=== PATIENT | female | born 1945 | race Caucasian/White ===

== ENCOUNTER 2017-09-27 08:58 | Day surgery (SDC) | payer MEDICARE, OTHER ==
[2017-09-24 09:41] VITALS: BMI 36.6
[~2017-09-27 08:58] MED LIST: LACTATED RINGERS 1,000 ML IV SCH
[2017-09-27] MEDS ORDERED: LIDOCAINE 1% 20 ML VIAL (10MG/ML) FOR IV START INTRADERMA ONE (08:59)
[2017-09-27 09:11] VITALS: RESP 16; TEMP 97.8
[2017-09-27] MEDS ORDERED: PROPOFOL 10 MG/ML 20 ML VIAL IV ONE (09:47)
--- NOTE | 2017-09-27 09:49 | P.GSHP ---
History of Present Illness H&P Date: 09/27/17 Chief Complaint: Screening colonoscopy This a 72-year-old female for from Dr. Payne. Patient presents today for screening colonoscopy. Her last colonoscopy was or 14 years ago. Past Medical History Past Medical History: Hypertension Additional Past Medical History / Comment(s): HX HEMMOROIDS History of Any Multi-Drug Resistant Organisms: None Reported Past Surgical History: Appendectomy, Hysterectomy Additional Past Surgical History / Comment(s): HEMMOROIDECTOMY Past Anesthesia/Blood Transfusion Reactions: No Reported Reaction Smoking Status: Never smoker - Past Family History Mother Family Medical History: No Reported History Medications and Allergies Home Medications Medication Instructions Recorded Confirmed Type Aspirin [Adult Low Dose Aspirin EC] 81 mg PO DAILY 09/24/17 09/27/17 History Cholecalciferol [Vitamin D3] 1,000 unit PO DAILY 09/24/17 09/27/17 History Losartan/Hydrochlorothiazide 1 each PO QAM 09/24/17 09/27/17 History [Hyzaar 100-25 Tablet] amLODIPine [Norvasc] 5 mg PO QAM 09/24/17 09/27/17 History Allergies Allergy/AdvReac Type Severity Reaction Status Date / Time No Known Allergies Allergy Verified 09/24/17 09:23 Surgical - Exam Vital Signs Temp Pulse Resp BP Pulse Ox 97.8 F 85 16 196/92 99 09/27/17 09:06 09/27/17 09:06 09/27/17 09:06 09/27/17 09:06 09/27/17 09:06 - General well developed, no distress - Eyes PERRL - ENT normal pinna - Neck no masses - Respiratory normal expansion - Cardiovascular Rhythm: regular - Abdomen Abdomen: soft, non tender Assessment and Plan Assessment: We'll perform screening colonoscopy.
--- NOTE | 2017-09-27 10:16 | P.OP ---
Date of Procedure: 09/27/17 Preoperative Diagnosis: Screening colonoscopy Postoperative Diagnosis: Transverse colon polyp Diverticulosis. Procedure(s) Performed: Colonoscopy Anesthesia: MAC Surgeon: Rey Berkowitz Pathology: other (Transverse colon polyp) Condition: stable Disposition: PACU Description of Procedure: The patient's placed on the endoscopy table in the lateral position. She received IV sedation. Digital rectal exam was performed which revealed no abnormalities. The flexible colonoscope was then placed patient anus passed throughout the entire colon. The ileocecal valve was visualized. The cecum and ascending colon appeared normal. In the transverse colon there were a few scattered diverticula. There was also a small polyp seen this is removed with the snare. Scope was then brought back the descending and; there is extensive diverticular changes. Scope was then brought back the rectum and this appeared normal. Scope was withdrawn for patient.
[2017-09-27 10:30] VITALS: BP 172/83; PULSE 60
== END 2017-09-27 10:58 | disposition home or self-care (01) ==
LOC: ORWHC2ENDO 08:58
PROVIDERS: ATTEND Surgery
DX: Z12.11 Encounter for screening for malignant neoplasm of colon (principal); K63.5 Polyp of colon; K57.30 Diverticulosis of large intestine without perforation or abscess without bleeding; I10 Essential (primary) hypertension; Z79.82 Long term (current) use of aspirin; Z79.899 Other long term (current) drug therapy; Z90.49 Acquired absence of other specified parts of digestive tract; Z90.710 Acquired absence of both cervix and uterus
CPT/HCPCS: 45385; 88305; J2704

== ENCOUNTER → 2017-12-15 | Outpatient (CLI) | payer MEDICARE, OTHER | END | disposition home or self-care (01) | LOC: LABPAT 09:49 | PROVIDERS: ATTEND Orthopaedic Surgery Sports Medicine | DX: Z01.812 Encounter for preprocedural laboratory examination (principal) | CPT/HCPCS: 87070 ==

== ENCOUNTER 2018-02-03 10:23 | Inpatient (IN) | payer MEDICARE, OTHER ==
[2018-01-20 14:39] VITALS: BMI 36.1
[~2018-02-03 10:23] MED LIST changes: +ACETAMINOPHEN TAB 500 MG TAB PO ONE; +DEXAMETHASONE SOD PHOSPHATE 10 MG/ML 1 ML VIAL IV ONE; -LACTATED RINGERS 1,000 ML IV SCH; +LIDOCAINE 1% 20 ML VIAL (10MG/ML) FOR IV START INTRADERMA PRN; +MELOXICAM 7.5 MG TAB PO ONE; +MIDAZOLAM 2 MG/2 ML VIAL IV PRN; +ONDANSETRON 4 MG/2 ML VIAL IVP ONE; +ROPIVACAINE 246.25 MG, EPINEPHrine 0.5 MG, KETOROLAC 30 MG, cloNIDine HCL/PF 80 MCG, WA... MISCELLANE ONE; +SCOPOLAMINE 1.5MG/72HR PATCH TRANSDERM ONE; +TRANEXAMIC ACID 1,000 MG in SODIUM CHLORIDE 0.9% 50 ML IVPB ONE; +ceFAZolin IN SWFI 2 GM/20 ML SYRINGE IVP ONE; +fentaNYL (PF) 50 MCG/ML 2 ML AMP IV PRN
[2018-02-03] MEDS: LACTATED RINGERS 1,000 ML IV SCH ×3 (10:40→16:04)
[2018-02-03 11:07] LABS: INR 1.1 (<1.2); Partial Thromboplastin Time 25.1 sec (22.0-30.0); Prothrombin Time 10.3 sec (9.0-12.0)
[2018-02-03] MEDS ORDERED: MIDAZOLAM 2 MG/2 ML VIAL ONE (11:24)
[2018-02-03] MEDS ORDERED: SODIUM CHLORIDE 0.9% 100 ML BAG ONE (11:24)
[2018-02-03] MEDS ORDERED: PROPOFOL 10 MG/ML 20 ML VIAL IV ONE (11:24)
[2018-02-03] MEDS ORDERED: fentaNYL (PF) 50 MCG/ML 2 ML AMP ONE (11:24)
[2018-02-03] MEDS ORDERED: TRANEXAMIC ACID 1,000 MG/10 ML VIAL ONE (11:24)
[2018-02-03] MEDS ORDERED: MORPHINE SULFATE 2 MG/ML SYRINGE IVP PRN (11:43)
[2018-02-03] MEDS ORDERED: NALOXONE 0.4 MG/ML 1 ML VIAL IV PRN ×2 (11:43→13:26)
[2018-02-03] MEDS ORDERED: NALBUPHINE 10 MG/ML AMPUL IV PRN (11:43)
[2018-02-03] MEDS ORDERED: diphenhydrAMINE 50 MG/ML 1 ML VIAL IVP PRN (11:43)
[2018-02-03] MEDS ORDERED: ceFAZolin 3,000 MG in SODIUM CHLORIDE 0.9% IRRIGATIO 3,000 ML IRRIGATION ONE (12:36)
[2018-02-03] MEDS ORDERED: LACTATED RINGERS 1,000 ML IV ONE ×2 (12:53)
[2018-02-03] MEDS ORDERED: BISACODYL 10 MG SUPP RECTAL PRN (13:26)
[2018-02-03] MEDS ORDERED: NA PHOS,M-B/NA PHOS,DI-BA 133 ML ENEMA RECTAL PRN (13:26)
[2018-02-03] MEDS ORDERED: traMADol 50 MG TAB PO PRN (13:26)
[2018-02-03] MEDS ORDERED: TEMAZEPAM 15 MG CAP PO PRN (13:26)
[2018-02-03] MEDS ORDERED: HYDROmorphone 0.5 MG/0.5 ML SYRINGE IVP PRN ×3 (13:26)
[2018-02-03] MEDS ORDERED: MAGNESIUM HYDROXIDE 2,400 MG/10 ML CUP PO PRN (13:26)
[2018-02-03] MEDS ORDERED: hydrOXYzine PAMOATE 25 MG CAP PO PRN (13:26)
[2018-02-03] MEDS ORDERED: DIAZEPAM 5 MG TAB PO PRN (13:26)
[2018-02-03] MEDS ORDERED: HYDROcodone/APAP 7.5-325MG 1 EACH TAB PO PRN ×2 (13:26)
[2018-02-03] MEDS ORDERED: ONDANSETRON 4 MG/2 ML VIAL IVP PRN (13:26)
--- NOTE | 2018-02-03 14:09 | XR ---
EXAMINATION TYPE: XR knee limited LT DATE OF EXAM: 02/03/2018 COMPARISON: NONE HISTORY: Post knee replacement TECHNIQUE: 2 view left knee FINDINGS: Postoperative changes are within the left knee. Tibial femoral components of in place. IMPRESSION: 1. No acute fractures post left knee replacement.
--- NOTE | 2018-02-03 18:26 | OP ---
OPERATIVE REPORT DATE OF PROCEDURE: 02/03/2018. PREOPERATIVE DIAGNOSIS: Left knee osteoarthrosis. POSTOPERATIVE DIAGNOSIS: Left knee osteoarthrosis. OPERATION: Left total knee arthroplasty. SURGEON: Shaw Gipson MD. GRAVEL INSPECTOR: Joao LEMA. ANESTHESIA: Spinal sedation. ESTIMATED BLOOD LOSS: 100 mL. TOURNIQUET TIME: 45 minutes at 250 mmHg. COMPLICATIONS: None apparent. DRAINS: None. DISPOSITION: Postanesthesia care unit. INDICATIONS: Venus is a 72-year-old female with longstanding history of left knee pain. History and physical examination are consistent with a left knee osteoarthrosis. She has been through significant nonoperative management up to this point. Further treatment options were discussed and she decided to go forward with left total knee arthroplasty. The risks of procedure were discussed with her in detail. These risks include, but are not limited to risk of infection, nerve damage, bleeding, pain and risk of deep vein thrombosis which could lead to fatal pulmonary embolism. There is also risk of loosening of the implant which could require revision operation. The patient understands these risks. All of her questions with regard to the risks were answered to her satisfaction. Appropriate informed consent was obtained. DESCRIPTION OF THE PROCEDURE: The patient was identified in the preoperative holding area. Surgical sites marked by both the patient and myself. She was given 2 g of Ancef IV for prophylactic purposes. She was then transferred to the operative suite. She was placed supine on the operative table. Spinal anesthetic was then administered and dosed per the anesthesia without apparent complication. Examination under anesthesia was then performed. The patient was 2-3 degrees shy of full extension. She had 95 degrees of flexion. The medial collateral ligament, lateral collateral ligament and posterior cruciate ligaments were stable. Tourniquet was then placed high on the left upper thigh well-padded in preparation for surgery. The patient's left lower extremity was then prepped and draped in usual sterile fashion. Standard surgical pause undertaken to ensure that we were operating the correct site and that appropriate preop preoperative antibiotics were given. All staff in the room in agreement and we proceeded. The outlines of the patella were marked with a surgical pen. A planned 12 cm vertical incision centered over the patella was marked surgical pen. Leg was then exsanguinated with an Esmarch dressing. The knee was then flexed and the tourniquet was inflated to 250 mmHg. The total tourniquet time for the procedure was 45 minutes. Incision was then made with a 10 blade scalpel. Dissection was carried down sharply overlying fascia. Great care was taken to minimize the skin flaps. The knee was then exposed using a standard medial parapatellar approach. A small cuff of quadriceps tendon was then left for suturing. She was in a bit of varus preoperatively. A standard medial release was then made. Superficial medial and collateral ligaments were dissected off the bone around the posterior aspect of the proximal tibia. The medial meniscus was then excised as well. The lateral meniscus was also released anteriorly. The leg was then externally rotated. The patella was everted and the knee was flexed. The retractors were then placed to protect the collateral ligaments. I then proceeded to remove the infrapatellar fat pad. This was excised sharply tangentially with the fibers of the patellar tendon. I then proceeded to remove peripheral osteophytes. This was done with a rongeur. I then proceed with the distal femoral resection. She did have a small flexion contracture and planned 9 mm resection was done. The femoral canal was then entered in midline of the femur approximately 10 mm anterior to the origin of the posterior cruciate ligament. The sunny was then advanced down the center of the femur and placed intramedullary. Based on preoperative radiographs, the angle between the anatomic and mechanical axis of the femur was approximately 4-5 degrees. The valgus angle of this femoral cutting guide was then set at 4 degrees for the left knee. The distal femoral cutting guide was then advanced over the intramedullary sunny. This was seated firmly against the femur. I then as mentioned planned to take 9 mm off the distal femur. The cutting block was then secured to the femur with pins. The jig was removed and the distal femoral cut was made through the slot of the block. The pins were then removed. The distal femoral cutting block was removed. The accuracy of the distal femoral cuts was checked with 2 flat bars. I then proceed with femoral sizing. The posterior referencing sizing guide was held firmly against the resected distal surface of the femur. The posterior condyles were resting on the posterior plane of the guide. The sizing stylus was then placed onto the anterior femur. The size was measured as a size 7. I then assessed for femoral rotation. Plan was for 3 degrees of external rotation. Three degrees of external rotation was placed onto the jig. These holes were then marked. I then confirmed the rotation by 3 separate methods. This was done using the epicondylar axis as well as Whitesides line and posterior referencing. It was deemed that the external rotation was proper. I then went forward with placing the femoral cutting block. This was placed over the previously placed pin holes. The Jose Guadalupe wing was then placed on the anterior slots to ensure that we would not notch the anterior femur with the anterior femoral cut. I then proceed with the anterior femoral cut. This was flush with the anterior cortex of the femur. Posterior cuts were then made followed by the anterior chamfer cut, then the posterior chamfer cut. The cutting block was then removed. Throughout the resection, the collateral ligaments were protected with retractors. I then placed a trial size 7 femur. It fit very nice medial-lateral and fit flush with the distal end of the femur. The drill holes were then made. I then proceeded with the tibial cut. I planned for cruciate retaining knee. The guide was placed and set for varus valgus and for slope. The height was set for approximate 2 mm resection from the medial tibial plateau which was the lower side. I was happy with the alignment of resection. The cutting block was then pinned to the proximal tibia. The alignment rods were removed. The proximal tibia was resected with a reciprocating saw. Again this was done with retractors protecting the collateral ligaments as well as the posterior cruciate ligament. I then proceeded to evaluate the flexion and extension gaps. A 10 mm block was placed. The flexion-extension gaps were equal. I then proceeded with resection of posterior osteophytes. She had fairly extensive posterior osteophytes. This was done using a curved osteotome. This resected the posterior osteophytes and posterior capsule stripping was also done off the posterior aspect of the femur at this time. The osteophytes were removed. I then proceeded with resection of the patella. The thickness of patella was measured using the caliper. The thickness was 22 mm. The thickness of the anticipated patellar dome was then taken into account. Resection was then performed and confirmed to be equal in 4 quadrants using a caliper. Approximately 14 mm of bone remained after the resection. A 29 x 8 standard patellar trial was then placed. The holes were drilled. The trial was then placed. I then proceeded with sizing the tibial plate. A size E tibial plate fit very nicely. I then placed the trial femur, the tibial tray and patellar button. A 10 mm trial tibial insert was also placed. The components fit very nicely. She had full extension and flexion. The extension flexion gaps were equal and stable to both varus and valgus stress. The patella tracked appropriately. The tibial tray rotation was marked with a Bovie. This was externally rotated properly. I then proceed with tibial preparation. I first drilled the femoral holes and removed femoral component. The tibial tray was then set for proper external rotation as well as mediolateral placement onto the tibia. It was then pinned into place. I then proceeded with punching the keel. I then decided to proceed with cementing of all of our components. The knee was thoroughly irrigated with sterile saline solution via pulse lavage. The lateral geniculate artery was identified and cauterized. All blood was removed from the bone of the tibia femur and patella with pulse lavage. I then proceed with cementing. Two packs of antibiotic bone cement were prepared on the back table by the surgical nurse. I then proceed with cementing the tibia first. The cement was impacted into the keel as well as deeply seated into the bone. A second coat of cement was then placed. The tibia was then impacted into place. Excess cement was removed with Karen's and jokers. I then proceed with cementing the femoral component. The femoral component was also cemented using standard technique. Excess cement was removed. A 10 mm trial insert was placed into the knee. It was brought into full extension with a constant axial load placed until the cement had hardened. The patellar component was then cemented. This was firmly held with a compressive device until the cement had dried. When the cement had dried, the knee was taken out of extension. All excess cement was removed from around the prosthesis. I then trialed the knee with a 10 mm insert. The flexion-extension gaps were appropriate. The knee was stable. It came into full extension. I decided to go forward with the 10 mm cross-linked cruciate-retaining tibial insert. Polyethylene was then placed onto the tibial tray and locked into place. The knee was then reduced. The knee was again further irrigated with sterile saline solution with antibiotic added. The tourniquet was then deflated. The total tourniquet time for the procedure was 45 minutes at 250 mmHg. Final components were a Juliet Persona size 7 cruciate-retaining femoral component, a size E tibial tray, a 10 mm medial congruent cruciate-retaining polyethylene insert and a 29 x 8 patella. I then proceeded with closure. Again, the knee was thoroughly irrigated. The quadriceps tendon and the medial retinaculum were reapproximated with #2 Ethibond suture. The extensor mechanism was then closed with a running #2 Quill suture. Subcutaneous tissues were closed with 2-0 Vicryl suture. The skin was closed with a running 3-0 Quill suture. Dermabond was applied to the incision. All sponge and needle counts were deemed correct prior to closure. The patient tolerated procedure without apparent complication. She was transferred to recovery room in stable condition. MMODL / IJN: [id number] /
--- NOTE | 2018-02-03 18:35 | CONS ---
CONSULTATION This is a 72-year-old white female who had severe pain in her left knee. Arthroscopic surgery was attempted that was not successful. Patient continued to worsen to the point that she could not bear weight. Evaluated by Dr. Shaw Gipson. He felt that the knee was severe enough to have total replacement, and this was done today. I did her preoperative physical examination. At this time she has ALLERGIES to BIAXIN and LYRICA. SOCIAL HISTORY: She is a nonsmoker, nondrinker. MEDICAL HISTORY: Significant just basically for hypertension, and she has also had overflow incontinence. SURGERIES IN THE PAST: 1. Orthoscopic knee surgery on the left. 2. Complete hysterectomy. 3. Appendectomy. REVIEW OF SYSTEMS: CARDIOPULMONARY: No shortness of breath. No chest pain. No orthopnea. GI: No nausea, vomiting. No hematochezia. : She has bladder incontinence, occasional urinary tract infection. NEUROMUSCULAR: Just the severe pain in her left knee. Her skin has been normal. PSYCHIATRIC: No depression and no anxiety. PHYSICAL EXAMINATION: Alert white female, postoperatively doing fine. Blood pressure 130/76, heart rate in the 70s, temperature 98.3, respiratory rate 16, and oxygen saturation is 97. EYES: Pupils are equal, round, reactive to light and accommodation. ENT showed tympanic membranes to be normal with a dry mouth. NECK: Supple. Midline trachea. CHEST: Essentially clear to auscultation. HEART: Sinus rhythm with no murmur. ABDOMEN: Soft, nontender with no organomegaly. LOWER EXTREMITY: Left knee swelling is apparent with decreased range of motion due to pain. Right knee: She has arthritis also throughout the right knee, but weightbearing is fine. BACK: Full range of motion, both lumbar spine and thoracic spine. Good palpable lower extremity pulses. Her skin is normal. Urinalysis is normal. Her lab work is within normal limits. Chest x-ray and EKG were both normal. ASSESSMENT: 1. Left knee meniscus tear with severe arthritis. 2. Right knee arthritis. 3. Hypertension. 4. Allergies. 5. Rhinitis. 6. 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 7. She has some overflow incontinence. PLAN: Will follow her accordingly. Medications have been reordered. Please refer to my physical examination. MMODL / IJN: [id number] /
[2018-02-03] MEDS: ASPIRIN 325 MG TAB PO SCH (20:02)
[2018-02-03] MEDS: SENNOSIDES-DOCUSATE SODIUM 1 EACH TAB PO SCH (20:02)
[2018-02-03] MEDS: ceFAZolin IN SWFI 2 GM/20 ML SYRINGE IVP SCH (20:02)
[2018-02-04] MEDS: ceFAZolin IN SWFI 2 GM/20 ML SYRINGE IVP SCH (03:27)
[2018-02-04] MEDS: LACTATED RINGERS 1,000 ML IV SCH ×3 (03:37→17:44)
--- NOTE | 2018-02-04 05:34 | P.PN ---
Progress Note - Text Progress Note Date: 02/04/18 72 yo female status post Total Left knee arthroplasty. Post-op day #1. Patient received intrathecal Duramorph. Patient was seen today, sitting up in bed no complaints, pain VAS score 3/10, no headache, no itching, no nausea and vomiting. Assessment and plan: Doing well in general no complications from anesthesia.
[2018-02-04 08:07] LABS: Basophils % (A) 0 %; Eosinophils % (A) 0 %; HGB 11.4 gm/dL (11.4-16.0); Lymphocytes # (A) 0.9 k/uL (1.0-4.8); Lymphocytes % (A) 9 %; MCH 28.8 pg (25.0-35.0); MCHC 33.5 g/dL (31.0-37.0); Mean Platelet Volume 6.8; Monocytes # (A) 0.5 k/uL (0-1.0); Monocytes % (A) 5 %; Neutrophils # (A) 8.4 k/uL (1.3-7.7); Neutrophils % (A) 85 %; Platelet Count 262 k/uL (150-450); RBC 3.96 m/uL (3.80-5.40); RDW 13.5 % (11.5-15.5); WBC 9.9 k/uL (3.8-10.6)
--- NOTE | 2018-02-04 09:10 | P.PN ---
Subjective Progress Note Date: 02/04/18 Principal diagnosis: S/P Left TKA Patient is seen at bedside this morning. She is postop day #1 from Left Total Knee arthroplasty. She has mild pain at the surgical site as expected but denies any new complaints. She denies numbness, tingling or calf pain. Review of systems is negative for fever, chills, chest pain, shortness of breath or other Objective - Vital Signs Vital signs: Vital Signs Temp 97.9 F 02/04/18 00:50 Pulse 70 02/04/18 00:50 Resp 18 02/04/18 05:40 BP 112/67 02/04/18 00:50 Pulse Ox 92 L 02/04/18 07:18 Intake & Output 02/03/18 02/04/18 02/04/18 18:59 06:59 18:59 Intake Total 1351 750 Output Total 100 Balance 1251 750 Weight 101.605 kg Intake: IV 1351 Intake, IV Titration 750 Amount Lactated Ringers 1,000 ml 750 @ 75 mls/hr IV .[id number] [facility] Rx#:[id number] Output: Estimated Blood Loss 100 Other: Voiding Method Bedside Commode # Voids 1 - Exam Inspection reveals a benign surgical wound. There is no active bleeding or drainage. Neurovascular status is intact throughout the lower extremity with motor and sensation fully intact. Calf is soft and nontender. 2+ dorsalis pedis pulse and less than 2 second cap refill is present - Constitutional General appearance: Present: no acute distress - Psychiatric Psychiatric: Present: A&O x's 3, appropriate affect, intact judgment & insight - Labs CBC & Chem 7: 02/04/18 06:46 02/03/18 10:45 Labs: Abnormal Lab Results - Last 24 Hours (Table) 02/04/18 Range/Units 06:46 Neutrophils # 8.4 H (1.3-7.7) k/uL Lymphocytes # 0.9 L (1.0-4.8) k/uL Assessment and Plan (1) S/P total knee arthroplasty Narrative/Plan: She will continue with routine postop orthopedic protocol including pain management, wound care, physical therapy, DVT prophylaxis and medical management. Expect that she will d/c to home tomorrow. Current Visit: Yes Status: Acute Priority: Medium Code(s): Z96.659 - PRESENCE OF UNSPECIFIED ARTIFICIAL KNEE JOINT SNOMED Code(s): 3945255986386 Time with Patient: Less than 30
[2018-02-04] MEDS: LOSARTAN-HCTZ 50-12.5 MG 1 EACH TAB PO SCH (09:34)
[2018-02-04] MEDS: ACETAMINOPHEN TAB 325 MG TAB PO PRN (09:34)
[2018-02-04] MEDS: ASPIRIN 325 MG TAB PO SCH ×2 (09:36→20:38)
[2018-02-04] MEDS: amLODIPine 5 MG TAB PO SCH (09:36)
--- NOTE | 2018-02-04 12:36 | P.PN ---
Subjective Progress Note Date: 02/04/18 Patient seen and examined at the bedside on rounds with Dr. Payne. Patient is POD #1 left TKA. Patient is awake and alert. Sitting up in bed. States her pain is tolerable at this time. Patient denies chest pain or pressure. Denies shortness of breath. Vitals are stable. Objective - Vital Signs Vital signs: Vital Signs Temp 97.1 F L 02/04/18 07:00 Pulse 66 02/04/18 07:00 Resp 16 02/04/18 12:00 BP 148/60 02/04/18 07:00 Pulse Ox 92 L 02/04/18 07:18 Intake & Output 02/03/18 02/04/18 02/04/18 18:59 06:59 18:59 Intake Total 1351 750 480 Output Total 100 Balance 1251 750 480 Weight 101.605 kg Intake: IV 1351 Intake, IV Titration 750 Amount Lactated Ringers 1,000 ml 750 @ 75 mls/hr IV .[id number] [facility] Rx#:[id number] Oral 480 Output: Estimated Blood Loss 100 Other: Voiding Method Bedside Commode Toilet # Voids 1 - Constitutional Constitutional Comment(s): 72-year-old female General appearance: Present: cooperative, no acute distress - EENT Eyes: Present: EOMI, PERRLA ENT: Present: hearing grossly normal - Neck Neck: Present: normal ROM. Absent: rigidity, stridor - Respiratory Respiratory: bilateral: CTA, negative: rales, rhonchi, wheezing - Cardiovascular Rhythm: regular Heart sounds: normal: S1, S2 Abnormal Heart Sounds: Absent: systolic murmur, diastolic murmur - Gastrointestinal General gastrointestinal: Present: normal bowel sounds, soft. Absent: distended , rigid, tenderness - Integumentary Integumentary: Present: normal. Absent: cellulitis, cyanotic, flushed, jaundiced - Neurologic Neurologic: Present: CNII-XII intact - Musculoskeletal Musculoskeletal: Present: strength equal bilaterally - Psychiatric Psychiatric: Present: A&O x's 3, appropriate affect, intact judgment & insight - Labs CBC & Chem 7: 02/04/18 06:46 02/03/18 10:45 Labs: Abnormal Lab Results - Last 24 Hours (Table) 02/04/18 Range/Units 06:46 Neutrophils # 8.4 H (1.3-7.7) k/uL Lymphocytes # 0.9 L (1.0-4.8) k/uL Assessment and Plan Plan: ASSESSMENT: Osteoarthritis, status post left total knee arthroplasty, POD #1 Hypertension PLAN: Continue postoperative management per Dr. Gipson Resume meds as appropriate Pain control Incentive spirometer 10 times hour while awake Activity as tolerated. Encourage ambulation Monitor labs GI/DVT prophylaxis Monitor vital signs and address as appropriate Further recommendations pending patient's course Patient is cleared for discharge from medical standpoint when she is cleared by attending physician Nurse practitioner note has been reviewed by physician. Signing provider agrees with the documented findings, assessment, and plan of care.
[2018-02-04] MEDS: MULTIVITAMINS, THERA 1 EACH TAB PO SCH (15:20)
[2018-02-04] MEDS: SENNOSIDES-DOCUSATE SODIUM 1 EACH TAB PO SCH (20:38)
[2018-02-05 00:57] VITALS: PULSE 71
[2018-02-05] MEDS: ACETAMINOPHEN TAB 325 MG TAB PO PRN ×2 (05:01→10:12)
[2018-02-05 05:25] VITALS: RESP 16
--- NOTE | 2018-02-05 09:04 | CONS ---
CONSULTATION 72-year-old white female with severe pain in the left knee. The patient had a scope earlier without it being effective. At this time, was evaluated by myself and Dr. Shaw Gipson. The patient had a total left knee replacement. She has had no problems while being in the hospital at this period of time. Her blood pressure has been fine. No chest pain. No shortness of breath. REVIEW OF SYSTEMS: HEENT no problem with eyes, the patient is seeing well. Neck no problems swallowing. Abdomen: No hematemesis, melena, hematochezia. has been normal. Neuromuscular: Just the pain in the left knee but tolerable and integumentary is no rashes. PHYSICAL EXAMINATION: VITAL SIGNS: Reveals blood pressure 125/61, heart rate was in the 70s, respiratory rate is 15, temperature is 98.6, and O2 is 92. HEENT: Eyes, pupils are equal, round, react to light and accommodation. ENT showed tympanic membranes and pharynx to be negative. NECK: Supple. Midline trachea. CHEST essentially clear to auscultation. HEART is sinus rhythm with no murmur. ABDOMEN: Soft, nontender with no organomegaly. EXTREMITIES: Lower extremity pulses are good. Negative Cezar. The patient has a left knee support, but also the dressing and the incision appears to be clean. PSYCHIATRIC: No depression or anxiety. LABORATORY: From yesterday, WBC is 9.9, hemoglobin is 11.4 potassium is up to 3.5. PLAN: Patient is being discharged home. Medications she will be on: Hydrocodone 7.5/325 q.6 hours p.r.n. pain, standard Norvasc 5 mg a day, 325 mg aspirin b.i.d., Dulcolax p.r.n., Norvasc 50/12.5 daily. Orthopedic instructions per Dr. Gipson. The patient is doing well and she will see me back in 2 weeks. Spent 30 minutes with this patient. MMODL / IJN: [id number] /
--- NOTE | 2018-02-05 09:34 | P.DS ---
Providers Date of admission: 02/03/18 10:23 Expected date of discharge: 02/05/18 Attending physician: Shaw Gipson Consults: 02/03/18 13:26 Consult Physician Routine Consulting Provider: Zia Payne Consult Reason/Comments: Post Op medical management Do you want consulting provider notified?: Yes Primary care physician: Zia Payne - Discharge Diagnosis(es) (1) Osteoarthritis of left knee Current Visit: Yes Status: Acute (2) S/P total knee arthroplasty Current Visit: Yes Status: Acute Priority: Medium Hospital Course: This is a pleasant 72-year-old female last seen in our office with complaints of left knee pain. Patient has known history of degenerative arthritis of the left knee and presented to discuss options. After discussion and consideration , the patient elected to proceed with a left total knee arthroplasty. Patient was seen preoperatively, and medically cleared for surgery by her primary care physician. Patient was admitted to [facility] underwent left total knee arthroplasty on 02/03/[address] Gispon. The procedure was performed without complications or sequelae. The patient is seen and evaluated at bedside today. Pain is well-controlled. Patient has no new complaints today and denies any fevers, chills, nausea, vomiting, or shortness of breath. Vital signs are stable. Dressing is clean dry and intact. Incision looks fine with no erythema or active drainage. Calf is soft and nontender. Patient has full foot and ankle motion without difficulty. Patient's left lower extremity is neurovascularly intact. The patient is orthopedically stable for discharge today. Pertinent Studies: Laboratory Tests 02/04/18 06:46 WBC 9.9 RBC 3.96 Hgb 11.4 Hct 34.0 Neutrophils # 8.4 H Lymphocytes # 0.9 L Patient Condition at Discharge: Stable Plan - Discharge Summary Discharge Rx Participant: Yes New Discharge Prescriptions: New Aspirin 325 mg PO BID #60 tab Docusate [Colace] 100 mg PO BID #60 capsule HYDROcodone/APAP 7.5-325MG [[place] 7.5-325] 1 - 2 each PO Q6HR PRN #90 tab PRN Reason: Pain No Action amLODIPine [Norvasc] 5 mg PO QAM Cholecalciferol [Vitamin D3] 1,000 unit PO DAILY Losartan/Hydrochlorothiazide [Hyzaar 100-25 Tablet] 1 tab PO QAM Aspirin [Adult Low Dose Aspirin EC] 81 mg PO DAILY Discharge Medication List Aspirin [Adult Low Dose Aspirin EC] 81 mg PO DAILY 09/24/17 [History] Cholecalciferol [Vitamin D3] 1,000 unit PO DAILY 09/24/17 [History] Losartan/Hydrochlorothiazide [Hyzaar 100-25 Tablet] 1 tab PO QAM 09/24/17 [ History] amLODIPine [Norvasc] 5 mg PO QAM 09/24/17 [History] Aspirin 325 mg PO BID #60 tab 02/04/18 [Rx] Docusate [Colace] 100 mg PO BID #60 capsule 02/04/18 [Rx] HYDROcodone/APAP 7.5-325MG [[place] 7.5-325] 1 - 2 each PO Q6HR PRN #90 tab [Rx] Follow up Appointment(s)/Referral(s): [facility], [NON-STAFF] - Shaw Gipson MD [STAFF PHYSICIAN] - 02/14/18 1:00 pm Activity/Diet/Wound Care/Special Instructions: Keep wound clean and dry Take meds as directed Follow-up with Dr. Gipson in office Weight bear as tolerated May shower in 3 days if no bleeding [facility]- [phone] - will deliver to bedside before discharge. Discharge Disposition: HOME WITH HOME HEALTH SERVICES
[2018-02-05 09:51] VITALS: BP 135/62; TEMP 97
[2018-02-05] MEDS: ASPIRIN 325 MG TAB PO SCH ×2 (10:07→10:08)
[2018-02-05] MEDS: amLODIPine 5 MG TAB PO SCH (10:07)
[2018-02-05] MEDS: LOSARTAN-HCTZ 50-12.5 MG 1 EACH TAB PO SCH (10:08)
[2018-02-05] MEDS: MULTIVITAMINS, THERA 1 EACH TAB PO SCH (10:08)
[2018-02-05] MEDS: LACTATED RINGERS 1,000 ML IV SCH (10:18)
== END 2018-02-05 11:30 | disposition home or self-care (01) | DRG 470 ==
LOC: 2ORMAIN 10:23 → 3SUR 13:35
PROVIDERS: ADMIT Orthopaedic Surgery Sports Medicine; ATTEND Orthopaedic Surgery Sports Medicine
PROC: 0SRD0J9 Replacement of Left Knee Joint with Synthetic Substitute, Cemented, Open Approach (ICD-10-PCS; principal; 2018-02-03 12:00)
DX: M17.12 Unilateral primary osteoarthritis, left knee (principal); I10 Essential (primary) hypertension; J31.0 Chronic rhinitis; N39.490 Overflow incontinence; Z90.710 Acquired absence of both cervix and uterus; Z82.49 Family history of ischemic heart disease and other diseases of the circulatory system; Z79.899 Other long term (current) drug therapy
CPT/HCPCS: 80053; 80061; 83036; 84132; 84439; 84443; 84550; 85025; 85610; 85730; 88300; 94760

== ENCOUNTER → 2018-08-09 | Outpatient (CLI) | payer MEDICARE, OTHER ==
--- NOTE | 2018-08-12 07:43 | MM ---
Reason for exam: screening (asymptomatic). Last mammogram was performed 1 year and 1 month ago. History: Patient is postmenopausal. Took estrogen for 3 years beginning at age 39. Physical Findings: A clinical breast exam by your physician is recommended on an annual basis and results should be correlated with mammographic findings. MG 3D Screening Mammo W/Cad Bilateral CC and MLO view(s) were taken. Prior study comparison: June 28, 2017, bilateral MG 3d screening mammo w/cad. November 03, 2012, bilateral digital screening mammo w/CAD. There are scattered fibroglandular densities. No significant changes when compared with prior studies. ASSESSMENT: Benign, BI-RAD 2 RECOMMENDATION: Routine screening mammogram of both breasts in 1 year.
== END | disposition home or self-care (01) ==
LOC: RADMAMWWP 12:58
PROVIDERS: ATTEND Family Medicine
DX: Z12.31 Encounter for screening mammogram for malignant neoplasm of breast (principal)
CPT/HCPCS: 77063; 77067

== ENCOUNTER 2019-10-06 10:47 | Emergency (ER) | payer MEDICARE, OTHER ==
[2019-10-06] MEDS ORDERED: SODIUM CHLORIDE 0.9% 500 ML 500 ML IV STA (11:20)
--- NOTE | 2019-10-06 11:47 | XR ---
EXAMINATION TYPE: XR chest 2V DATE OF EXAM: 10/06/2019 COMPARISON: None INDICATION: Syncope elevated blood pressure TECHNIQUE: Frontal and lateral views of the chest are obtained. FINDINGS: The heart size is normal. The pulmonary vasculature is normal. The lungs are clear. IMPRESSION: 1. No acute pulmonary process.
[2019-10-06 12:00] LABS: Basophils % (A) 0 %; Eosinophils # (A) 0.1 k/uL (0-0.7); Eosinophils % (A) 1 %; HCT 42.7 % (34.0-46.0); HGB 13.9 gm/dL (11.4-16.0); Lymphocytes # (A) 0.7 k/uL (1.0-4.8); Lymphocytes % (A) 9 %; MCH 28.6 pg (25.0-35.0); MCHC 32.6 g/dL (31.0-37.0); MCV 87.7 fL (80.0-100.0); Mean Platelet Volume 7.3; Monocytes # (A) 0.2 k/uL (0-1.0); Monocytes % (A) 3 %; Neutrophils % (A) 85 %; Platelet Count 258 k/uL (150-450); RBC 4.87 m/uL (3.80-5.40); RDW 13.4 % (11.5-15.5); WBC 7.1 k/uL (3.8-10.6)
[2019-10-06 12:01] LABS: Appearance,Urine Clear (Clear); Bilirubin,Urine Negative (Negative); Blood,Urine Trace (Negative); Color,Urine Light Yellow; Glucose,Urine (UA) Negative (Negative); Hyaline Casts,Urine 1 /lpf (0-2); Ketones,Urine Negative (Negative); Leukocyte Esterase,Urine Negative (Negative); Mucus,Urine Occasional /hpf; Nitrite,Urine Negative (Negative); PH, Urine 5.5 (5.0-8.0); Protein,Urine Negative (Negative); RBC,Urine 1 /hpf (0-5); Squamous Epithelial Cell,Urine 1 /hpf (0-4); Urobilinogen,Urine <2.0 mg/dL (<2.0); WBC,Urine 1 /hpf (0-5)
[2019-10-06 12:10] LABS: Partial Thromboplastin Time 24.6 sec (22.0-30.0); Prothrombin Time 10.2 sec (9.0-12.0)
[2019-10-06 12:11] LABS: ALT 14 U/L (4-34); AST 22 U/L (14-36); African American GFR (CKD) >90 (>60 ml/min/1.73 sqM); Albumin 4.4 g/dL (3.5-5.0); Alkaline Phosphatase 105 U/L (38-126); Anion Gap 11 mmol/L; Blood Urea Nitrogen 13 mg/dL (7-17); Calcium 9.3 mg/dL (8.4-10.2); Carbon Dioxide 21 mmol/L (22-30); Chloride 109 mmol/L (98-107); Glucose 112 mg/dL (74-99); Non-African American GFR(CKD) 89 (>60 ml/min/1.73 sqM); Potassium 3.8 mmol/L (3.5-5.1); Sodium 141 mmol/L (137-145); Total Bilirubin 0.5 mg/dL (0.2-1.3); Total Protein 7.2 g/dL (6.3-8.2)
--- NOTE | 2019-10-06 12:43 | ED ---
Recheck HPI - General Chief Complaint: Recheck/Abnormal Lab/Rx Stated Complaint: High BP Time Seen by Provider: 10/06/19 10:55 Source: patient Mode of arrival: ambulatory Limitations: no limitations - History of Present Illness Initial Comments: 74yo presenting for cc of elevated BP x 1 day. Patient states that she noticed her blood pressure was elevated today at approximately 15-30 minutes after she took her medication of 100mg Lisinopril. Patient states the diastolic was in the 100s. Patient states her highest systolic was 200. Patient denies chest pain or SOB. Patient denies headache, speech changes, weakness of the upper or lower extremity sensation deficits patient states she did feel slightly lightheaded and that is why she initially took her blood pressure. Patient denies any current lightheaded sensations. Patient states this does occur every few months then resolves. Patient denies any leg swelling, urinary changes, ripping/tearing back pain. Patient appears well on arrival there is no signs of acute distress. BP elevated. Patient took lisinopril approximately 2 hour prior to arrival. Upon arrival patient appears well there is no signs of acute distress. - Related Data Home Medications Medication Instructions Recorded Confirmed Aspirin [Adult Low Dose Aspirin EC] 81 mg PO DAILY 09/24/17 02/03/18 Cholecalciferol [Vitamin D3] 1,000 unit PO DAILY 09/24/17 02/03/18 Losartan/Hydrochlorothiazide 1 tab PO QAM 09/24/17 02/03/18 [Hyzaar 100-25 Tablet] amLODIPine [Norvasc] 5 mg PO QAM 09/24/17 02/03/18 Previous Rx's Medication Instructions Recorded Aspirin 325 mg PO BID #60 tab 02/04/18 Docusate [Colace] 100 mg PO BID #60 capsule 02/04/18 HYDROcodone/APAP 7.5-325MG [[place] 1 - 2 each PO Q6HR PRN #90 tab 02/04/18 7.5-325] Allergies Allergy/AdvReac Type Severity Reaction Status Date / Time No Known Allergies Allergy Verified 10/06/19 10:53 Review of Systems ROS Statement: Those systems with pertinent positive or pertinent negative responses have been documented in the HPI. ROS Other: All systems not noted in ROS Statement are negative. Past Medical History Past Medical History: Hypertension Additional Past Medical History / Comment(s): HX HEMMOROIDS History of Any Multi-Drug Resistant Organisms: None Reported Past Surgical History: Appendectomy, Hysterectomy Additional Past Surgical History / Comment(s): HEMMOROIDECTOMY Past Anesthesia/Blood Transfusion Reactions: No Reported Reaction Past Psychological History: No Psychological Hx Reported Smoking Status: Never smoker Past Alcohol Use History: None Reported Past Drug Use History: None Reported - Past Family History Mother Family Medical History: No Reported History General Exam - General Exam Comments Initial Comments: General: The patient is awake and alert, in no distress, and does not appear acutely ill. Eye: +3 mm pupils are equal, round and reactive to light, extra-ocular movements are intact. No nystagmus. There is normal conjunctiva bilaterally. No signs of icterus. Ears, nose, mouth and throat: There are moist mucous membranes and no oral lesions. Neck: The neck is supple, there is no tenderness or JVD. Cardiovascular: There is a regular rate and rhythm. No murmur, rub or gallop is appreciated. Respiratory: Lungs are clear to auscultation, respirations are non-labored, breath sounds are equal. No wheezes, stridor, rales, or rhonchi. Gastrointestinal: Soft, non-distended, non-tender abdomen without masses or organomegaly noted. There is no rebound or guarding present. Musculoskeletal: Normal ROM, no tenderness. Strength 5/5. Sensation intact. Radial pulses equal bilaterally 2+. Neurological: A&O x 3. CN II-XII intact, There are no obvious motor or sensory deficits. Coordination appears grossly intact. Speech is normal. Skin: Skin is warm and dry and no rashes or lesions are noted. No LE edema. Psychiatric: Cooperative, appropriate mood & affect, normal judgment. Limitations: no limitations Course Vital Signs 10/06/19 10/06/19 10/06/19 10:51 12:14 13:13 Temperature 98.0 F 98.1 F Pulse Rate 82 68 64 Respiratory 18 20 16 Rate Blood Pressure 202/111 160/86 170/82 O2 Sat by Pulse 98 97 98 Oximetry Medical Decision Making - Medical Decision Making Well-appearing 74-year-old female presenting for elevated blood pressure. Patient states she did feel slightly lightheaded at the time and this has been ongoing on and off for the past 3 months. She denies any current lightheaded sensation any dizziness. Patient has no current symptoms at this time. Patient's EKG no acute findings chest x-ray clear laboratory studies stable with a negative troponin denied any chest pain or shortness of breath. Without additional medications patient's blood pressure decreased most likely from the administered 100 mg of lisinopril prior to arrival. At this time I feel patient is stable for discharge with outpatient primary care follow-up by primary provider Dr. Salas is agreeable to this care plan and recommends discharge. Patient is agreeable and states she is ready to go home. Ventricular rate 75 bpm, MO interval 146 ms, QRS duration 84 ms, QT/QTC 402/448 ms. This is normal sinus with no ST elevation or depression. - Lab Data Result diagrams: 10/06/19 11:23 10/06/19 11:23 Lab Results 10/06/19 10/06/19 10/06/19 Range/Units 11:23 11:23 11:23 WBC 7.1 (3.8-10.6) k/uL RBC 4.87 (3.80-5.40) m/uL Hgb 13.9 (11.4-16.0) gm/dL Hct 42.7 (34.0-46.0) % MCV 87.7 (80.0-100.0) fL MCH 28.6 (25.0-35.0) pg MCHC 32.6 (31.0-37.0) g/dL RDW 13.4 (11.5-15.5) % Plt Count 258 (150-450) k/uL Neutrophils % 85 % Lymphocytes % 9 % Monocytes % 3 % Eosinophils % 1 % Basophils % 0 % Neutrophils # 6.0 (1.3-7.7) k/uL Lymphocytes # 0.7 L (1.0-4.8) k/uL Monocytes # 0.2 (0-1.0) k/uL Eosinophils # 0.1 (0-0.7) k/uL Basophils # 0.0 (0-0.2) k/uL PT 10.2 (9.0-12.0) sec INR 1.0 (<1.2) APTT 24.6 (22.0-30.0) sec Sodium 141 (137-145) mmol/L Potassium 3.8 (3.5-5.1) mmol/L Chloride 109 H (98-107) mmol/L Carbon Dioxide 21 L (22-30) mmol/L Anion Gap 11 mmol/L BUN 13 (7-17) mg/dL Creatinine 0.65 (0.52-1.04) mg/dL Est GFR (CKD-EPI)AfAm >90 (>60 ml/min/1.73 sqM) Est GFR (CKD-EPI)NonAf 89 (>60 ml/min/1.73 sqM) Glucose 112 H (74-99) mg/dL Calcium 9.3 (8.4-10.2) mg/dL Total Bilirubin 0.5 (0.2-1.3) mg/dL AST 22 (14-36) U/L ALT 14 (4-34) U/L Alkaline Phosphatase 105 (38-126) U/L Troponin I (0.000-0.034) ng/mL Total Protein 7.2 (6.3-8.2) g/dL Albumin 4.4 (3.5-5.0) g/dL Urine Color Urine Appearance (Clear) Urine pH (5.0-8.0) Ur Specific [place] (1.001-1.035) Urine Protein (Negative) Urine Glucose (UA) (Negative) Urine Ketones (Negative) Urine Blood (Negative) Urine Nitrite (Negative) Urine Bilirubin (Negative) Urine Urobilinogen (<2.0) mg/dL Ur Leukocyte Esterase (Negative) Urine RBC (0-5) /hpf Urine WBC (0-5) /hpf Ur Squamous Epith Cells (0-4) /hpf Hyaline Casts (0-2) /lpf Urine Mucus (None) /hpf 10/06/19 10/06/19 Range/Units 11:23 11:23 WBC (3.8-10.6) k/uL RBC (3.80-5.40) m/uL Hgb (11.4-16.0) gm/dL Hct (34.0-46.0) % MCV (80.0-100.0) fL MCH (25.0-35.0) pg MCHC (31.0-37.0) g/dL RDW (11.5-15.5) % Plt Count (150-450) k/uL Neutrophils % % Lymphocytes % % Monocytes % % Eosinophils % % Basophils % % Neutrophils # (1.3-7.7) k/uL Lymphocytes # (1.0-4.8) k/uL Monocytes # (0-1.0) k/uL Eosinophils # (0-0.7) k/uL Basophils # (0-0.2) k/uL PT (9.0-12.0) sec INR (<1.2) APTT (22.0-30.0) sec Sodium (137-145) mmol/L Potassium (3.5-5.1) mmol/L Chloride (98-107) mmol/L Carbon Dioxide (22-30) mmol/L Anion Gap mmol/L BUN (7-17) mg/dL Creatinine (0.52-1.04) mg/dL Est GFR (CKD-EPI)AfAm (>60 ml/min/1.73 sqM) Est GFR (CKD-EPI)NonAf (>60 ml/min/1.73 sqM) Glucose (74-99) mg/dL Calcium (8.4-10.2) mg/dL Total Bilirubin (0.2-1.3) mg/dL AST (14-36) U/L ALT (4-34) U/L Alkaline Phosphatase (38-126) U/L Troponin I <0.012 (0.000-0.034) ng/mL Total Protein (6.3-8.2) g/dL Albumin (3.5-5.0) g/dL Urine Color Light Yellow Urine Appearance Clear (Clear) Urine pH 5.5 (5.0-8.0) Ur Specific [place] 1.010 (1.001-1.035) Urine Protein Negative (Negative) Urine Glucose (UA) Negative (Negative) Urine Ketones Negative (Negative) Urine Blood Trace H (Negative) Urine Nitrite Negative (Negative) Urine Bilirubin Negative (Negative) Urine Urobilinogen <2.0 (<2.0) mg/dL Ur Leukocyte Esterase Negative (Negative) Urine RBC 1 (0-5) /hpf Urine WBC 1 (0-5) /hpf Ur Squamous Epith Cells 1 (0-4) /hpf Hyaline Casts 1 (0-2) /lpf Urine Mucus Occasional H (None) /hpf Disposition Clinical Impression: Elevated blood pressure reading, Light headed Disposition: HOME SELF-CARE Condition: Good Instructions (If sedation given, give patient instructions): Chronic Hypertension (ED), Hypertension (ED) Additional Instructions: Please use medication as discussed. Please follow-up with family doctor in the next 2 days, please obtain records for reviewing-given age would recommend outpatient stress test. Return to ER for chest pain, sensation of passing out, headaches, visual changes, shortness of breath. Please return to emergency room if the symptoms increase or worsen or for any other concerns. Is patient prescribed a controlled substance at d/c from ED?: No Referrals: Zia Payne MD [Primary Care Provider] - 1-2 days Time of Disposition: 12:42
[2019-10-06 13:14] VITALS: BP 170/82; PULSE 64; RESP 16; TEMP 98.1
== END 2019-10-06 13:13 | disposition home or self-care (01) ==
LOC: EC 10:47
DX: I10 Essential (primary) hypertension (principal); R42 Dizziness and giddiness; Z79.82 Long term (current) use of aspirin; Z79.899 Other long term (current) drug therapy
CPT/HCPCS: 36415; 71046; 80053; 81001; 84484; 85025; 85610; 85730; 93005; 96360; 99284

== ENCOUNTER 2020-02-22 19:36 | Inpatient (IN) | payer MEDICARE, OTHER ==
[2020-02-22] MEDS ORDERED: SODIUM CHLORIDE 0.9% 1,000 ML IV STA (20:10)
--- NOTE | 2020-02-22 20:15 | ED ---
General Adult HPI - General Source: patient, RN notes reviewed Mode of arrival: ambulatory Limitations: no limitations <Juan Gates - Last Filed: 02/22/20 22:15> <Jesús Heard - Last Filed: 02/22/20 22:24> - General Chief complaint: Dizziness Stated complaint: Dizziness Time Seen by Provider: 02/22/20 20:00 - History of Present Illness Initial comments: 74-year-old female with a past medical history of hypertension presents to the emergency department for a chief complaint of lightheadedness. Patient states for the past 2 months she has been lightheaded. States she is lightheaded throughout the day. States it is about 70% of her day that she feels this way. She denies any dizziness or room spinning. Patient states she did start losartan about 2 months ago she started to feel this way. She thought it could be related but she did not take her losartan today and again felt lightheaded. Patient states she has been drinking plenty of fluids. Patient denies any chest pain or shortness of breath.Patient has no other complaints at this time including shortness of breath, chest pain, abdominal pain, nausea or vomiting, headache, or visual changes. (Juan Gates) - Related Data Home Medications Medication Instructions Recorded Confirmed amLODIPine [Norvasc] 5 mg PO QAM 09/24/17 02/22/20 Lactulose 10 gm PO HS 02/22/20 02/22/20 Losartan Potassium 100 mg PO HS 02/22/20 02/22/20 Previous Rx's Medication Instructions Recorded Aspirin 325 mg PO BID #60 tab 02/04/18 Cephalexin [Keflex] 500 mg PO Q8H 10 Days #30 cap 02/22/20 Allergies Allergy/AdvReac Type Severity Reaction Status Date / Time No Known Allergies Allergy Verified 02/22/20 21:30 Review of Systems ROS Other: All systems not noted in ROS Statement are negative. <Juan Gates - Last Filed: 02/22/20 22:15> ROS Other: All systems not noted in ROS Statement are negative. <Jesús Heard - Last Filed: 02/22/20 22:24> ROS Statement: Those systems with pertinent positive or pertinent negative responses have been documented in the HPI. Past Medical History Past Medical History: Hypertension Additional Past Medical History / Comment(s): HX HEMMOROIDS History of Any Multi-Drug Resistant Organisms: None Reported Past Surgical History: Appendectomy, Hysterectomy Additional Past Surgical History / Comment(s): HEMMOROIDECTOMY Past Anesthesia/Blood Transfusion Reactions: No Reported Reaction Past Psychological History: No Psychological Hx Reported Smoking Status: Never smoker Past Alcohol Use History: None Reported Past Drug Use History: None Reported - Past Family History Mother Family Medical History: No Reported History <Juan Gates - Last Filed: 02/22/20 22:15> General Exam Limitations: no limitations General appearance: alert, in no apparent distress Head exam: Present: atraumatic, normocephalic, normal inspection Eye exam: Present: normal appearance, PERRL, EOMI. Absent: scleral icterus, conjunctival injection ENT exam: Present: normal exam, mucous membranes moist Neck exam: Present: normal inspection, full ROM. Absent: tenderness, meningismus, lymphadenopathy Respiratory exam: Present: normal lung sounds bilaterally. Absent: respiratory distress, wheezes, rales, rhonchi, stridor Cardiovascular Exam: Present: regular rate, normal rhythm, normal heart sounds. Absent: systolic murmur, diastolic murmur, rubs, gallop, clicks GI/Abdominal exam: Present: soft, normal bowel sounds. Absent: distended, tenderness, guarding, rebound, rigid Neurological exam: Present: alert <Juan Gates - Last Filed: 02/22/20 22:15> Course <Jesús Heard - Last Filed: 02/22/20 22:24> Vital Signs 02/22/20 02/22/20 02/22/20 19:46 20:16 21:16 Temperature 97.9 F 98.7 F Pulse Rate 84 74 70 Respiratory 18 17 16 Rate Blood Pressure 162/88 161/94 135/81 O2 Sat by Pulse 99 97 98 Oximetry - Reevaluation(s) Reevaluation #1: 02/22/20 22:23 PA supervision: This is a 74-year-old female who presented with complaints of dizziness going on for up to 2 months. She was found on evaluation to have a slight urinary tract infection. She does not want to be hospitalized sign she'll be discharged with appropriate antibiotics. She is follow-up with her doctor return when necessary return parameters were discussed. (Jesús Heard) EKG Findings - EKG Comments: EKG Findings:: Ventricular rate 75,.SD int 172, QTc 446, normal sinus rhythm. <Juan Gates - Last Filed: 02/22/20 22:15> Medical Decision Making - Lab Data Result diagrams: 02/22/20 20:39 02/22/20 20:39 <Juan Gates - Last Filed: 02/22/20 22:15> - Lab Data Result diagrams: 02/22/20 20:39 02/22/20 20:39 <Jesús Heard - Last Filed: 02/22/20 22:24> - Lab Data Lab Results 02/22/20 02/22/20 02/22/20 Range/Units 20:39 20:39 20:39 WBC 7.1 (3.8-10.6) k/uL RBC 4.96 (3.80-5.40) m/uL Hgb 14.4 (11.4-16.0) gm/dL Hct 43.4 (34.0-46.0) % MCV 87.4 (80.0-100.0) fL MCH 29.0 (25.0-35.0) pg MCHC 33.1 (31.0-37.0) g/dL RDW 13.4 (11.5-15.5) % Plt Count 329 (150-450) k/uL Neutrophils % 68 % Lymphocytes % 22 % Monocytes % 5 % Eosinophils % 2 % Basophils % 1 % Neutrophils # 4.9 (1.3-7.7) k/uL Lymphocytes # 1.6 (1.0-4.8) k/uL Monocytes # 0.4 (0-1.0) k/uL Eosinophils # 0.1 (0-0.7) k/uL Basophils # 0.1 (0-0.2) k/uL PT 10.5 (9.0-12.0) sec INR 1.0 (<1.2) APTT 23.4 (22.0-30.0) sec Sodium 140 (137-145) mmol/L Potassium 4.1 (3.5-5.1) mmol/L Chloride 107 (98-107) mmol/L Carbon Dioxide 24 (22-30) mmol/L Anion Gap 9 mmol/L BUN 14 (7-17) mg/dL Creatinine 0.74 (0.52-1.04) mg/dL Est GFR (CKD-EPI)AfAm >90 (>60 ml/min/1.73 sqM) Est GFR (CKD-EPI)NonAf 81 (>60 ml/min/1.73 sqM) Glucose 96 (74-99) mg/dL Calcium 9.5 (8.4-10.2) mg/dL Total Bilirubin 0.4 (0.2-1.3) mg/dL AST 19 (14-36) U/L ALT 14 (4-34) U/L Alkaline Phosphatase 119 (38-126) U/L Troponin I (0.000-0.034) ng/mL Total Protein 7.4 (6.3-8.2) g/dL Albumin 4.4 (3.5-5.0) g/dL Urine Color Urine Appearance (Clear) Urine pH (5.0-8.0) Ur Specific [place] (1.001-1.035) Urine Protein (Negative) Urine Glucose (UA) (Negative) Urine Ketones (Negative) Urine Blood (Negative) Urine Nitrite (Negative) Urine Bilirubin (Negative) Urine Urobilinogen (<2.0) mg/dL Ur Leukocyte Esterase (Negative) Urine RBC (0-5) /hpf Urine WBC (0-5) /hpf Ur Squamous Epith Cells (0-4) /hpf Hyaline Casts (0-2) /lpf Urine Mucus (None) /hpf 02/22/20 02/22/20 Range/Units 20:39 20:51 WBC (3.8-10.6) k/uL RBC (3.80-5.40) m/uL Hgb (11.4-16.0) gm/dL Hct (34.0-46.0) % MCV (80.0-100.0) fL MCH (25.0-35.0) pg MCHC (31.0-37.0) g/dL RDW (11.5-15.5) % Plt Count (150-450) k/uL Neutrophils % % Lymphocytes % % Monocytes % % Eosinophils % % Basophils % % Neutrophils # (1.3-7.7) k/uL Lymphocytes # (1.0-4.8) k/uL Monocytes # (0-1.0) k/uL Eosinophils # (0-0.7) k/uL Basophils # (0-0.2) k/uL PT (9.0-12.0) sec INR (<1.2) APTT (22.0-30.0) sec Sodium (137-145) mmol/L Potassium (3.5-5.1) mmol/L Chloride (98-107) mmol/L Carbon Dioxide (22-30) mmol/L Anion Gap mmol/L BUN (7-17) mg/dL Creatinine (0.52-1.04) mg/dL Est GFR (CKD-EPI)AfAm (>60 ml/min/1.73 sqM) Est GFR (CKD-EPI)NonAf (>60 ml/min/1.73 sqM) Glucose (74-99) mg/dL Calcium (8.4-10.2) mg/dL Total Bilirubin (0.2-1.3) mg/dL AST (14-36) U/L ALT (4-34) U/L Alkaline Phosphatase (38-126) U/L Troponin I <0.012 (0.000-0.034) ng/mL Total Protein (6.3-8.2) g/dL Albumin (3.5-5.0) g/dL Urine Color Yellow Urine Appearance Cloudy H (Clear) Urine pH 5.0 (5.0-8.0) Ur Specific [place] 1.025 (1.001-1.035) Urine Protein Trace H (Negative) Urine Glucose (UA) Negative (Negative) Urine Ketones Negative (Negative) Urine Blood Small H (Negative) Urine Nitrite Negative (Negative) Urine Bilirubin Negative (Negative) Urine Urobilinogen <2.0 (<2.0) mg/dL Ur Leukocyte Esterase Large H (Negative) Urine RBC 2 (0-5) /hpf Urine WBC 18 H (0-5) /hpf Ur Squamous Epith Cells 6 H (0-4) /hpf Hyaline Casts 5 H (0-2) /lpf Urine Mucus Many H (None) /hpf Disposition Is patient prescribed a controlled substance at d/c from ED?: No Time of Disposition: 22:15 <Juan Gates - Last Filed: 02/22/20 22:15> <Jesús Heard - Last Filed: 02/22/20 22:24> Clinical Impression: Lightheadedness, Urinary tract infection Disposition: HOME SELF-CARE Condition: Good Instructions (If sedation given, give patient instructions): Lightheadedness (ED), Urinary Tract Infection in Women (ED) Additional Instructions: Please follow up with primary care in 1-2 days for possible cardiology referral. If you have any worsening symptoms or have an episode of passing out return immediately to the emergency room. Take antibiotic as directed. Prescriptions: Cephalexin [Keflex] 500 mg PO Q8H 10 Days #30 cap Referrals: Zia Payne MD [Primary Care Provider] - 1-2 days
[2020-02-22 21:09] LABS: Basophils # (A) 0.1 k/uL (0-0.2); Basophils % (A) 1 %; Eosinophils # (A) 0.1 k/uL (0-0.7); Eosinophils % (A) 2 %; HCT 43.4 % (34.0-46.0); HGB 14.4 gm/dL (11.4-16.0); Lymphocytes # (A) 1.6 k/uL (1.0-4.8); Lymphocytes % (A) 22 %; MCHC 33.1 g/dL (31.0-37.0); MCV 87.4 fL (80.0-100.0); Mean Platelet Volume 6.9; Monocytes # (A) 0.4 k/uL (0-1.0); Monocytes % (A) 5 %; Neutrophils # (A) 4.9 k/uL (1.3-7.7); Neutrophils % (A) 68 %; Platelet Count 329 k/uL (150-450); RBC 4.96 m/uL (3.80-5.40); RDW 13.4 % (11.5-15.5); WBC 7.1 k/uL (3.8-10.6)
[2020-02-22 21:13] LABS: Appearance,Urine Cloudy (Clear); Bilirubin,Urine Negative (Negative); Blood,Urine Small (Negative); Color,Urine Yellow; Glucose,Urine (UA) Negative (Negative); Hyaline Casts,Urine 5 /lpf (0-2); Ketones,Urine Negative (Negative); Leukocyte Esterase,Urine Large (Negative); Mucus,Urine Many /hpf; Nitrite,Urine Negative (Negative); Protein,Urine Trace (Negative); RBC,Urine 2 /hpf (0-5); Specific Gravity,Urine 1.025 (1.001-1.035); Squamous Epithelial Cell,Urine 6 /hpf (0-4); Urobilinogen,Urine <2.0 mg/dL (<2.0); WBC,Urine 18 /hpf (0-5)
[2020-02-22 21:18] LABS: Partial Thromboplastin Time 23.4 sec (22.0-30.0); Prothrombin Time 10.5 sec (9.0-12.0)
[2020-02-22 21:20] LABS: ALT 14 U/L (4-34); AST 19 U/L (14-36); African American GFR (CKD) >90 (>60 ml/min/1.73 sqM); Albumin 4.4 g/dL (3.5-5.0); Alkaline Phosphatase 119 U/L (38-126); Anion Gap 9 mmol/L; Blood Urea Nitrogen 14 mg/dL (7-17); Calcium 9.5 mg/dL (8.4-10.2); Carbon Dioxide 24 mmol/L (22-30); Chloride 107 mmol/L (98-107); Glucose 96 mg/dL (74-99); Non-African American GFR(CKD) 81 (>60 ml/min/1.73 sqM); Potassium 4.1 mmol/L (3.5-5.1); Sodium 140 mmol/L (137-145); Total Bilirubin 0.4 mg/dL (0.2-1.3); Total Protein 7.4 g/dL (6.3-8.2)
--- NOTE | 2020-02-22 21:25 | XR ---
EXAMINATION TYPE: XR chest 2V DATE OF EXAM: 02/22/2020 COMPARISON: 10/06/2019 HISTORY: High blood pressure TECHNIQUE: 2 views FINDINGS: Heart is normal. Lungs are clear of consolidation. There are no hilar masses. Costophrenic angles are clear. IMPRESSION: No active cardiopulmonary disease. No change.
[2020-02-22] MEDS ORDERED: NALOXONE 0.4 MG/ML 1 ML VIAL IV PRN (22:44)
[2020-02-22] MEDS: SODIUM CHLORIDE 0.9% 1,000 ML IV SCH (23:54)
--- NOTE | 2020-02-23 08:49 | P.HPIM ---
History of Present Illness H&P Date: 02/23/20 Chief Complaint: Dizziness History of Present Illness This is a 74-year-old female patient of Dr. Payne with past medical history of hypertension. Patient states that she has had dizziness on and off for the last 3 months. About 2 months ago she was placed on losartan 100 mg daily and thinks that her symptoms are worse since that time. Last initial episode where she did feel palpitations in her heart rate was up to 140s and she went to [facility] was told that she had hypertension was sent home. She states her episode that time was very severe and she had tingling in her hands and arms. She was previously in the ER and September at [facility] as well. She states she never loses consciousness but she usually sits mostly today when she's had an episode. Episodes come and go. Yesterday morning it was 180/116. A blood pressure is low. She denies any spinning sensation, chest pain, shortness of breath. Patient came into [facility] emergency center for evaluation. EKG reveals sinus mechanism heart rate is [address] or T wave abnormalities noted. Chest xray negative for an acute cardiopulmonary process. CBC unremarkable, sodium 140, potassium 4.1, creatinine 0.74, troponin negative 3. Patient has been seen by cardiology, echocardiogram is pending, orthostatics to be checked, apply cardiac monitoring, carotid Doppler ordered. At rest, patient denies any symptoms at this time. Review of Systems Constitutional: No fever, no chills, no night sweats. No weight change. No weakness, fatigue or lethargy. No daytime sleepiness. EENT: No headache. No blurred vision or double vision, no loss of vision. No loss of Hearing, no ringing in the ears, no dizziness. No nasal drainage or con gestion. No epistaxis. No sore throat. Lungs: No shortness of breath, cough, no sputum production. No wheezing. Cardiovascular: No chest pain, no lower extremity edema. No palpitations. No paroxysmal nocturnal dyspnea. No orthopnea. Reports lightheadedness or dizziness. No syncopal episodes. Abdominal: No abdominal pain. No nausea, vomiting. No diarrhea. No constipation. No bloody or tarry stools.. No loss of appetite. Genitourinary: No dysuria, increased frequency, urgency. No urinary retention. Musculoskeletal: No myalgias. No muscle weakness, no gait dysfunction, no frequent falls. No back pain. No neck pain. Integumentary: No wounds, no lesions. No rash or pruritus. No unusual bruising. No change in hair or nails. Neurologic: No aphasia. No facial droop. No change in mentation. No head injury. No headache. No paralysis. No paresthesia. Psychiatric: No depression. No anxiety. No mood swings. Endocrine: No abnormal blood sugars. No weight change. No excessive sweating or thirst. No cold intolerance. Physical Examination Gen: This is 74-year-old female patient resting on the ER stretcher and appears comfortable at rest. HEENT: Head is atraumatic, normocephalic. Pupils equal, round. Sclerae is anicteric. NECK: Supple. No JVD. No lymphadenopathy. No thyromegaly. LUNGS: Clear to auscultation. No wheezes or rhonchi. No intercostal retracti ons. HEART: Regular rate and rhythm. No murmur. ABDOMEN: Soft. Bowel sounds are present. No masses. No tenderness. EXTREMITIES: No pedal edema. No calf tenderness. Dorsalis pedis palpable bilaterally. NEUROLOGICAL: Patient is awake, alert and oriented x3. Cranial nerves 2 through 12 are grossly intact. Assessment and Plan 1. Near syncopal episode. Orthostatic vital signs, echocardiogram, carotid Doppler, cardiac monitoring. Cardiology consult appreciated. 2. Hypertension. Losartan discontinued. Continue amlodipine 5 mg daily and add hydralazine 50 mg twice daily. 3. Peripheral vascular disease, stable 4. DVT prophylaxis. Heparin subcu. 5. GI prophylaxis. Protonix. 6. COVID-19 testing in process. Patient placed as an observation status. Discharge plan: Return home Impression and plan of care have been directed as dictated by the signing physician. Elif Maharaj nurse practitioner acting as scribe for signing physician. Past Medical History Past Medical History: Hypertension Additional Past Medical History / Comment(s): HX HEMMOROIDS History of Any Multi-Drug Resistant Organisms: None Reported Past Surgical History: Appendectomy, Hysterectomy Additional Past Surgical History / Comment(s): HEMMOROIDECTOMY Past Anesthesia/Blood Transfusion Reactions: No Reported Reaction Past Psychological History: No Psychological Hx Reported Smoking Status: Never smoker Past Alcohol Use History: None Reported Past Drug Use History: None Reported - Past Family History Mother Family Medical History: No Reported History Medications and Allergies Home Medications Medication Instructions Recorded Confirmed Type amLODIPine [Norvasc] 5 mg PO QAM 09/24/17 02/22/20 History Aspirin 325 mg PO BID #60 tab 02/04/18 02/22/20 Rx Cephalexin [Keflex] 500 mg PO Q8H 10 Days #30 cap 02/22/20 Rx Lactulose 10 gm PO HS 02/22/20 02/22/20 History Losartan Potassium 100 mg PO HS 02/22/20 02/22/20 History Allergies Allergy/AdvReac Type Severity Reaction Status Date / Time No Known Allergies Allergy Verified 02/22/20 21:30 Physical Exam Vitals: Vital Signs Temp Pulse Resp BP Pulse Ox 02/23/20 05:00 98.4 F 71 16 144/73 99 02/23/20 01:41 98.4 F 73 15 161/76 97 02/22/20 23:00 72 20 164/80 99 02/22/20 22:00 66 20 125/69 02/22/20 21:16 98.7 F 70 16 135/81 98 02/22/20 20:16 74 17 161/94 97 02/22/20 19:46 97.9 F 84 18 162/88 99 Intake and Output 02/22/20 02/23/20 02/23/20 22:59 06:59 14:59 Other: Weight 101.151 kg Results CBC & Chem 7: 02/22/20 20:39 02/22/20 20:39 Labs: Abnormal Lab Results - Last 24 Hours (Table) 02/22/20 Range/Units 20:51 Urine Appearance Cloudy H (Clear) Urine Protein Trace H (Negative) Urine Blood Small H (Negative) Ur Leukocyte Esterase Large H (Negative) Urine WBC 18 H (0-5) /hpf Ur Squamous Epith Cells 6 H (0-4) /hpf Hyaline Casts 5 H (0-2) /lpf Urine Mucus Many H (None) /hpf Microbiology - Last 24 Hours (Table) 02/22/20 20:51 Urine Culture - Preliminary Urine,Voided
--- NOTE | 2020-02-23 09:30 | P.CRDCN ---
History of Present Illness History of present illness: HISTORY OF PRESENTING ILLNESS This is a pleasant 74-year-old female past medical history significant for hypertension and peripheral vascular disease. According to the patient she has carotid artery disease with a 60% blockage on the right and a 40% blockage on the left and she follows with Dr. Fitzgerald. He denies prior history of coronary artery disease and does not follow in the office with athletic director. We have been asked to see in consultation for near syncope. She states for the previous 3-months she has been having intermittent episodes of feeling lightheaded like she is going to pass out however she has not passed out or lost consciousness. Her symptoms have no specific precipitating or exacerbating factors. She denies feeling chest pain, shortness of breath, nausea or palpitations prior to feeling dizzy. She did describe one episode last week where she was sitting down and getting ready to go to faith she felt her heart start racing rapidly. She did check her blood pressure at that time and her heart rate read with the 140 bpm. She states it felt very regular and rapid. It lasted for less than 5 minutes and resolved on its own. It was associated with some feeling of lightheadedness. That was the first time she had felt palpitations. She was recently started on losartan 100 mg at bedtime by her primary care physician 3 months ago. She checks her blood pressure regularly at home and it fluctuates between 124 systolic up to 180 systolic. She states she underwent cardiac catheterization over 10 years ago that she states was normal. DIAGNOSTICS EKG reveals sinus mechanism heart rate is [address] or T wave abnormalities noted.. Chest xray negative for an acute cardiopulmonary process. Laboratory reviewed, CBC unremarkable, sodium 140, potassium 4.1, creatinine 0.74, troponin negative 3. Current cardiac medications include aspirin 325 mg twice a day, amlodipine 5 mg in the morning and losartan 100 mg at bedtime. REVIEW OF SYSTEMS At the time of my exam: CONSTITUTIONAL: Denies fever or chills. CARDIOVASCULAR: Denies chest pain, shortness of breath, orthopnea, PND or palpitations. RESPIRATORY: Denies cough. GASTROINTESTINAL: Denies abdominal pain, diarrhea, constipation, nausea or vomiting. MUSCULOSKELETAL: Denies myalgias. NEUROLOGIC: Denies numbness, tingling or weakness. ENDOCRINE: Denies fatigue, weight change, polydipsia or polyurina. GENITOURINARY: Denies burning, hematuria or urgency with micturation. HEMATOLOGIC: Denies history of anemia or bleeding. PHYSICAL EXAMINATION Blood pressure 144/73 heart rate 71 afebrile and maintaining oxygen saturation on room air. CONSTITUTIONAL: No apparent distress. HEENT: Head is normocephalic. Pupils are equal, round. Sclerae anicteric. Mucous membranes of the mouth are moist. No JVD. No carotid bruit. CHEST EXAMINATION: Lungs are clear to auscultation. No chest wall tenderness is noted on palpation or with deep breathing. HEART EXAMINATION: Regular rate and rhythm. S1, S2 heard. No murmurs, gallops or rub. ABDOMEN: Soft, nontender. Positive bowel sounds. EXTREMITIES: 2+ peripheral pulses, no lower extremity edema and no calf tenderness. NEUROLOGIC EXAMINATION: Patient is awake, alert and oriented x3. ASSESSMENT Near syncope Hypertension Peripheral vascular disease PLAN An acute coronary event has been ruled out. Obtain 2-D echocardiogram and Doppler study to assess cardiac structure and function. Check for orthostatic changes. Apply blind eyeletter to assess for an acute arrhythmia. Obtain bilateral carotid Doppler. Further recommendations to follow based upon clinical course. Thank you kindly for this consultation. Nurse Practitioner note has been reviewed, I agree with a documented findings and plan of care. Patient was seen and examined. Past Medical History Past Medical History: Hypertension Additional Past Medical History / Comment(s): HX HEMMOROIDS History of Any Multi-Drug Resistant Organisms: None Reported Past Surgical History: Appendectomy, Hysterectomy Additional Past Surgical History / Comment(s): HEMMOROIDECTOMY Past Anesthesia/Blood Transfusion Reactions: No Reported Reaction Past Psychological History: No Psychological Hx Reported Smoking Status: Never smoker Past Alcohol Use History: None Reported Past Drug Use History: None Reported - Past Family History Mother Family Medical History: No Reported History Medications and Allergies Home Medications Medication Instructions Recorded Confirmed Type amLODIPine [Norvasc] 5 mg PO QAM 09/24/17 02/22/20 History Aspirin 325 mg PO BID #60 tab 02/04/18 02/22/20 Rx Cephalexin [Keflex] 500 mg PO Q8H 10 Days #30 cap 02/22/20 Rx Lactulose 10 gm PO HS 02/22/20 02/22/20 History Losartan Potassium 100 mg PO HS 02/22/20 02/22/20 History Allergies Allergy/AdvReac Type Severity Reaction Status Date / Time No Known Allergies Allergy Verified 02/22/20 21:30 Physical Exam Vitals: Vital Signs Temp Pulse Resp BP Pulse Ox 02/23/20 05:00 98.4 F 71 16 144/73 99 02/23/20 01:41 98.4 F 73 15 161/76 97 02/22/20 23:00 72 20 164/80 99 02/22/20 22:00 66 20 125/69 02/22/20 21:16 98.7 F 70 16 135/81 98 02/22/20 20:16 74 17 161/94 97 02/22/20 19:46 97.9 F 84 18 162/88 99 Intake and Output 02/22/20 02/23/20 02/23/20 22:59 06:59 14:59 Other: Weight 101.151 kg Results 02/22/20 20:39 02/22/20 20:39 Cardiac Enzymes 02/22/20 02/22/20 02/23/20 Range/Units 20:39 20:39 00:18 AST 19 (14-36) U/L Troponin I <0.012 <0.012 (0.000-0.034) ng/mL 02/23/20 Range/Units 07:54 AST (14-36) U/L Troponin I <0.012 (0.000-0.034) ng/mL Coagulation 02/22/20 Range/Units 20:39 PT 10.5 (9.0-12.0) sec APTT 23.4 (22.0-30.0) sec CBC 02/22/20 Range/Units 20:39 WBC 7.1 (3.8-10.6) k/uL RBC 4.96 (3.80-5.40) m/uL Hgb 14.4 (11.4-16.0) gm/dL Hct 43.4 (34.0-46.0) % Plt Count 329 (150-450) k/uL Comprehensive Metabolic Panel 02/22/20 Range/Units 20:39 Sodium 140 (137-145) mmol/L Potassium 4.1 (3.5-5.1) mmol/L Chloride 107 (98-107) mmol/L Carbon Dioxide 24 (22-30) mmol/L BUN 14 (7-17) mg/dL Creatinine 0.74 (0.52-1.04) mg/dL Glucose 96 (74-99) mg/dL Calcium 9.5 (8.4-10.2) mg/dL AST 19 (14-36) U/L ALT 14 (4-34) U/L Alkaline Phosphatase 119 (38-126) U/L Total Protein 7.4 (6.3-8.2) g/dL Albumin 4.4 (3.5-5.0) g/dL Current Medications Generic Name Dose Route Start Last Admin Trade Name Freq PRN Reason Stop Dose Admin Amlodipine Besylate 5 mg 02/23/20 09:15 Norvasc PO QAM CHANTELLE Hydralazine HCl 50 mg 02/23/20 09:15 Apresoline PO BID CHANTELLE Sodium Chloride 1,000 mls @ 75 mls/hr 02/22/20 22:45 02/22/20 23:54 Saline 0.9% IV 75 mls/hr .[id number] CHANTELLE Administration Naloxone HCl 0.2 mg 02/22/20 22:44 Narcan IV Q2M PRN Opioid Reversal Intake and Output 02/22/20 02/23/20 02/23/20 22:59 06:59 14:59 Other: Weight 101.151 kg 02/22/20 20:39 02/22/20 20:39
[2020-02-23] MEDS: ASPIRIN 81 MG PO SCH (09:57)
[2020-02-23] MEDS: hydrALAZINE HCL 50 MG TAB PO SCH ×2 (09:58→22:06)
[2020-02-23] MEDS: amLODIPine 5 MG TAB PO SCH (10:03)
[2020-02-23] MEDS: SODIUM CHLORIDE 0.9% 1,000 ML IV SCH (15:21)
--- NOTE | 2020-02-23 15:56 | US ---
EXAMINATION TYPE: US carotid duplex BILAT DATE OF EXAM: 02/23/2020 COMPARISON: NONE CLINICAL HISTORY: near syncope. HTN. Patient states feeling dizzy. EXAM MEASUREMENTS: RIGHT: Peak Systolic Velocity (PSV) cm/sec ----- Right CCA: 76.9 ----- Right ICA: 110.4 ----- Right ECA: 108.1 ICA/CCA ratio: 1.4 RIGHT: End Diastole cm/sec ----- Right CCA: 18.8 ----- Right ICA: 33.3 ----- Right ECA: 7.9 LEFT: Peak Systolic Velocity (PSV) cm/sec ----- Left CCA: 73.9 ----- Left ICA: 245.4 ----- Left ECA: 104.3 ICA/CCA ratio: 3.3 LEFT: End Diastole cm/sec ----- Left CCA: 21.0 ----- Left ICA: 61.1 ----- Left ECA: 13.6 VERTEBRALS (direction of flow): Right Vertebral: Antegrade Left Vertebral: Antegrade Rhythm: Normal Bilateral wall thickening. Left significant stenosis. Elevated left mid and distal ICA. Plaque see n in bilateral ICA. IMPRESSION: 1. Severe stenosis greater than 70% within the left internal carotid artery. Criteria for Assigning % of Stenosis / Diameter reduction (Estimation based on the indirect measurements of the internal carotid artery velocities (ICA PSV). 1. Normal (no stenosis)=ICA PSV < 125 cm/s: ratio < 2.0: ICA EDV<40 cm/s. 2. Less than 50% stenosis=ICA PSV < 125 cm/s: ratio < 2.0: ICA EDV<40 cm/s. 3. 50 to 69% stenosis=ICA PSV of 125 to 230 cm/s: ration 2.0 ? 4.0: ICA EDV 40-100 cm/s. 4. Greater than 70% stenosis to near occlusion= ICA PSV > 230 cm/s: ratio > 4.0: ICA EDV > 100 cm/s. 5. Near occlusion= ICA PSV velocities may be low or undetectable: variable ratio and ICA EDV. 6. Total occlusion=unable to detect flow.
--- NOTE | 2020-02-23 18:41 | ECHOF ---
Referral Reason:near syncope MEASUREMENTS -------- HEIGHT: 170.2 cm WEIGHT: 101.2 kg BP: 144/73 RVIDd: 3.5 cm (< 3.3) IVSd: 1.0 cm (0.6 - 1.1) LVIDd: 3.2 cm (3.9 - 5.3) LVPWd: 1.0 cm (0.6 - 1.1) IVSs: 1.8 cm LVIDs: 2.7 cm LVPWs: 1.7 cm LA Diam: 3.6 cm (2.7 - 3.8) LAESV Index (A-L): 17.94 ml/m Ao Diam: 3.5 cm (2.0 - 3.7) AV Cusp: 1.9 cm (1.5 - 2.6) MV EXCURSION: 13.189 mm (> 18.000) MV EF SLOPE: 46 mm/s (70 - 150) EPSS: 0.6 cm MV E Tito: 0.85 m/s MV DecT: 343 ms MV A Tito: 1.18 m/s MV E/A Ratio: 0.72 FINDINGS -------- Sinus rhythm. This was a technically good study. The left ventricular size is normal. Left ventricular wall thickness is normal. Overall left vent ricular systolic function is normal with, an EF between 55 - 60 %. The right ventricle is mildly enlarged. Normal LA size by volume 22+/-6 ml/m2. The right atrial size is normal. Interatrial and interventricular septum intact. The aortic valve is trileaflet, and appears structurally normal. No aortic stenosis or regurgitation. Mild mitral annular calcification present. No mitral regurgitation. The tricuspid valve appears structurally normal. The pulmonic valve was not well visualized. There is no pulmonic regurgitation present. The aortic root size is normal. IVC Not well visulized. There is no pericardial effusion. CONCLUSIONS -------- 1. Sinus rhythm. 2. Left ventricular wall thickness is normal. 3. Overall left ventricular systolic function is normal with, an EF between 55 - 60 %. 4. The right ventricle is mildly enlarged. 5. Normal LA size by volume 22+/-6 ml/m2. 6. The aortic valve is trileaflet, and appears structurally normal. No aortic stenosis or regurgitati on. 7. Mild mitral annular calcification present. 8. The tricuspid valve appears structurally normal. 9. There is no pericardial effusion. SUPERVISOR [employer] LICENSE OFFICER: Bri Alcaraz RDCS
[2020-02-24] MEDS: SODIUM CHLORIDE 0.9% 1,000 ML IV SCH ×2 (01:35→16:07)
[2020-02-24] MEDS: ASPIRIN 81 MG PO SCH (08:26)
[2020-02-24] MEDS: amLODIPine 5 MG TAB PO SCH (08:26)
[2020-02-24] MEDS: hydrALAZINE HCL 50 MG TAB PO SCH ×2 (08:26→21:51)
--- NOTE | 2020-02-24 10:29 | PN ---
PROGRESS NOTE Mrs. Keane is a 74-year-old female who presented with symptoms of dizziness and presyncope, but did not have a full syncopal episode. She is feeling tired this morning, but had no syncope. She has no arrhythmia on the monitor. She has known history of carotid disease, followed by Dr. Fitzgerald. She denies any palpitation. No chest discomfort. No PND. No orthopnea. She underwent an echocardiogram yesterday that revealed a preserved systolic function with no significant valvular disease. She underwent a carotid duplex scan that revealed significant obstructive disease in the left internal carotid artery. Her medication at this point includes amlodipine 5 mg daily, aspirin, hydralazine 50 mg twice a day. PHYSICAL EXAMINATION: Blood pressure running in the 140s/80 with a heart rate in 70s. LUNGS: Clear. Heart regular rate and rhythm. S1, S2. No S3 with systolic murmur. No diastolic murmur. No rub. ABDOMEN: Soft, nontender. Positive bowel sounds. No organomegaly. EXTREMITIES: No edema. LAB DATA: Revealed a troponin less than 0.012 for 3 samples. IMPRESSION: 1. Symptoms of dizziness and near syncope. No evidence of malignant arrhythmia with carotid disease. 2. History of hypertension. 3. History of coronary artery disease. RECOMMENDATIONS: From the cardiac standpoint, we will continue the present medical regimen. In view of her history of carotid disease, I will add a statin to her regimen. We will continue on the aspirin. Increase her activity. We will await the input of Dr. Fitzgerald in regard to her carotid disease. MMODL / IJN: [id number] /
--- NOTE | 2020-02-24 11:23 | EEG ---
ELECTROENCEPHALOGRAM REPORT DATE OF SERVICE: February 23, 2020. DATE OF INTERPRETATION: February 24, 2020. REQUESTING PHYSICIAN: Dr. Scot Florian. HISTORY: Not available. TECHNICAL REPORT: This is an inpatient EEG performed on the [employer] EEG monitor with electrodes placed according to the International 10-20 system and a single EKG channel. Simultaneous video EEG monitoring was performed. This EEG was reviewed in both longitudinal bipolar, average referential and transverse montages. Photic stimulation was performed at various flash frequencies. The recording begins with the patient in quiet wakefulness. A well modulated synchronous 8 Hz posterior dominant rhythm is present that attenuates with eye opening. Intermittent muscle and movement artifact are noted, often associated with frequent eye blinking. Photic stimulation was performed at various flash frequencies and failed to elicit a consistent driving response. Following photic stimulation, the patient transitions into stage 1 sleep (drowsiness). This is associated with further attenuation of the background rhythm. The appearance of mixed theta frequencies between 6-7 Hz. Increase in beta activity is now noted anteriorly and centrally. The patient briefly transitions into stage II non rapid eye movement sleep. This is associated with further attenuation of the background. The appearance of rare synchronous sleep spindles, a slowing of the background down to 6-7 Hz. Deeper stages of sleep were not achieved. IMPRESSION: This is a normal wake drowsy sleep EEG study. No epileptiform activity, focal or hemispheric slowing was noted. No clinical events were noted. No abnormalities were noted during photic stimulation, nor in the EKG. CLINICAL CORRELATION: A single awake sleep EEG study does not preclude an underlying seizure tendency thus further clinical correlation is needed. If clinically indicated, a more prolonged overnight study or serial EEGs could provide additional information. MMODL / IJN: [id number] /
[2020-02-24 12:05] VITALS: RESP 16
--- NOTE | 2020-02-24 14:40 | P.PN ---
Subjective Progress Note Date: 02/24/20 Chief Complaint: Dizziness History of Present Illness This is a 74-year-old female patient of Dr. Payne with past medical history of hypertension. Patient states that she has had dizziness on and off for the last 3 months. About 2 months ago she was placed on losartan 100 mg daily and thinks that her symptoms are worse since that time. Last initial episode where she did feel palpitations in her heart rate was up to 140s and she went to [facility] was told that she had hypertension was sent home. She states her episode that time was very severe and she had tingling in her hands and arms. She was previously in the ER and September at [facility] as well. She states she never loses consciousness but she usually sits mostly today when she's had an episode. Episodes come and go. Yesterday morning it was 180/116. A blood pressure is low. She denies any spinning sensation, chest pain, shortness of breath. Patient came into [facility] emergency center for evaluation. EKG reveals sinus mechanism heart rate is [address] or T wave abnormalities noted. Chest xray negative for an acute cardiopulmonary process. CBC unremarkable, sodium 140, potassium 4.1, creatinine 0.74, troponin negative 3. Patient has been seen by cardiology, echocardiogram is pending, orthostatics to be checked, apply cardiac monitoring, carotid Doppler ordered. At rest, patient denies any symptoms at this time. 02/23: Patient was seen for follow-up today, she had a dizziness spell yesterday evening, patient denies any palpitations during this time, however her symptoms seems to be worse with positional changes of the head. Not positional changes for orthostasis.. Patient denies any chest pain palpitations during this event, not dyspnea, patient does not have any edema, no pleurisy, no dysplasia or aspirate events. Patient denies any diplopia or headache. She still will be seen by vascular surgery secondary to critical stenosis left side, or 70% left ICA, EEG of the brain is essentially unremarkable cat scan of the brain available for review, we'll going to request 41, patient would need ENT eval for benign positional vertigo and eval for vestibular vertigo, patient might need MRI of the brain plus minus MRI of the internal auditory canal. Patient denies any tinnitus , to evaluate for central vertigo, patient might need at least a 15 day or 30 day event monitor as an outpatient, urinalysis negative for pathogen. We will keep the patient another day,, orthostatic vitals to be done, along with brain imaging, patient might need outpatient physical therapy for Lien's maneuver, start meclizine Review of Systems Constitutional: No fever, no chills, no night sweats. No weight change. No weakness, fatigue or lethargy. No daytime sleepiness. EENT: No headache. No blurred vision or double vision, no loss of vision. No loss of Hearing, no ringing in the ears, no dizziness. No nasal drainage or c ongestion. No epistaxis. No sore throat. Lungs: No shortness of breath, cough, no sputum production. No wheezing. Cardiovascular: No chest pain, no lower extremity edema. No palpitations. No paroxysmal nocturnal dyspnea. No orthopnea. Reports lightheadedness or dizziness. No syncopal episodes. Abdominal: No abdominal pain. No nausea, vomiting. No diarrhea. No constipation. No bloody or tarry stools.. No loss of appetite. Genitourinary: No dysuria, increased frequency, urgency. No urinary retention. Musculoskeletal: No myalgias. No muscle weakness, no gait dysfunction, no frequent falls. No back pain. No neck pain. Integumentary: No wounds, no lesions. No rash or pruritus. No unusual bruising. No change in hair or nails. Neurologic: No aphasia. No facial droop. No change in mentation. No head injury. No headache. No paralysis. No paresthesia. Psychiatric: No depression. No anxiety. No mood swings. Endocrine: No abnormal blood sugars. No weight change. No excessive sweating or thirst. No cold intolerance. Objective - Vital Signs Vital signs: Vital Signs Temp 97.9 F 02/24/20 12:04 Pulse 79 02/24/20 12:04 Resp 16 02/24/20 12:04 BP 146/78 02/24/20 12:04 Pulse Ox 98 02/24/20 12:04 Intake & Output 02/23/20 02/24/20 02/24/20 18:59 06:59 18:59 Intake Total 75 Balance 75 Weight 101.151 kg Intake: Intake, IV Titration 75 Amount Sodium Chloride 0.9% 1, 75 000 ml @ 75 mls/hr IV . [id number] [facility] Rx#:[id number] Other: Voiding Method Toilet Toilet Toilet # Voids 1 2 - Constitutional General appearance: Present: cooperative, no acute distress - EENT Eyes: Present: anicteric sclerae, EOMI, normal appearance ENT: Present: hearing grossly normal, NA/AT, normal oropharynx - Neck Neck: Present: normal ROM - Respiratory Respiratory: bilateral: CTA, negative: diminished, dullness - Cardiovascular Rhythm: regular Heart sounds: normal: S1, S2 Abnormal Heart Sounds: Absent: systolic murmur, diastolic murmur, rub, S3 Gallop, S4 Gallop, click, other - Gastrointestinal General gastrointestinal: Present: normal bowel sounds, soft - Integumentary Integumentary: Present: normal turgor - Neurologic Neurologic: Present: CNII-XII intact - Musculoskeletal Musculoskeletal: Present: gait normal - Psychiatric Psychiatric: Present: A&O x's 3, appropriate affect - Labs CBC & Chem 7: 02/22/20 20:39 02/22/20 20:39 Labs: Microbiology - Last 24 Hours (Table) 02/22/20 20:51 Urine Culture - Final Urine,Voided Assessment and Plan Plan: Assessment and Plan 1. Near syncopal episode episodes of SVT,. Orthostatic vital signs, echocardiogram, carotid Doppler, cardiac monitoring. Cardiology consult appreciated. Patient can benefit from arrhythmia evaluation with either 15 or 30 day monitor event 2. Critical internal carotid stenosis left side, vascular surgeon to see the patient, 3. Vertigo, suspect 9 positional vertigo, cannot rule out central vertigo, CAT scan of the brain to be done for screening purposes, patient may need MRI of the brain with and without contrast as well as MRI of the internal carotid auditory canal, start meclizine, patient can benefit from outpatient physical therapy should this be benign positional vertigo. Patient needs to be evaluated for cerumen impaction is noted patient, ENT consult to be done as an outpatient 2. Hypertension. Losartan discontinued. Continue amlodipine 5 mg daily and add hydralazine 50 mg twice daily. 3. Peripheral vascular disease, stable 4. DVT prophylaxis. Heparin subcu. 5. GI prophylaxis. Protonix. 6. COVID-19 testing in process. Patient placed as an observation status. Discharge plan: Return home
--- NOTE | 2020-02-24 15:53 | CT ---
EXAMINATION TYPE: CT brain wo/w con DATE OF EXAM: 02/24/2020 COMPARISON: HISTORY: DIZZINESS AND HYPERTENSION CT DLP: 2095.4 mGycm Automated exposure control for dose reduction was used. CONTRAST: Performed without and with IV Contrast, patient injected with 100 mL of Isovue 300. Ventricles and sulci appear normal. There is no mass effect nor midline shift. There is no sign of in tracranial hemorrhage. The calvarium is intact. Contrast images show no pathologic enhancement. Skull base is intact. Temporal bones appear normal. Calvarium is intact. There is slight enlargement of this pituitary gland. There is fairly uniform enhancement on the contr ast images. IMPRESSION: There is some enlargement of the pituitary gland with uniform enhancement that could relate to macroa denoma.
[2020-02-24] MEDS: LACTULOSE 20 GM/30 ML CUP PO SCH (16:07)
[2020-02-24] MEDS: MECLIZINE 12.5 MG TAB PO SCH ×2 (16:08→21:51)
--- NOTE | 2020-02-24 18:22 | P.GSCN ---
History of Present Illness Consult date: 02/24/20 History of present illness: The patient is a 74 year old female was it past medical history of hypertension who came into the hospital with dizziness. Upon workup and evaluation she was found to have >70% stenosis of her left internal carotid artery. She denies any vision changes, facial droop, weakness slurred speech or other TIA symptoms. She states that when she moves her head she feels most dizzy. She denies any peripheral arterial disease or pain with ambulation Past Medical History Past Medical History: Hypertension Additional Past Medical History / Comment(s): HX HEMMOROIDS History of Any Multi-Drug Resistant Organisms: None Reported Past Surgical History: Appendectomy, Hysterectomy Additional Past Surgical History / Comment(s): HEMMOROIDECTOMY Past Anesthesia/Blood Transfusion Reactions: No Reported Reaction Past Psychological History: No Psychological Hx Reported Smoking Status: Never smoker Past Alcohol Use History: None Reported Past Drug Use History: None Reported - Past Family History Mother Family Medical History: No Reported History Medications and Allergies Home Medications Medication Instructions Recorded Confirmed Type amLODIPine [Norvasc] 5 mg PO QAM 09/24/17 02/22/20 History Aspirin 325 mg PO BID #60 tab 02/04/18 02/22/20 Rx Cephalexin [Keflex] 500 mg PO Q8H 10 Days #30 cap 02/22/20 Rx Lactulose 10 gm PO HS 02/22/20 02/22/20 History Losartan Potassium 100 mg PO HS 02/22/20 02/22/20 History Allergies Allergy/AdvReac Type Severity Reaction Status Date / Time No Known Allergies Allergy Verified 02/22/20 21:30 Surgical - Exam Vital Signs Temp Pulse Resp BP Pulse Ox 97.9 F 84 18 162/88 99 02/22/20 19:46 02/22/20 19:46 02/22/20 19:46 02/22/20 19:46 02/22/20 19:46 - General well developed, well nourished, no distress - Eyes PERRL, normal ocular movement - ENT normal pinna, normal nares - Neck no masses, no bruits - Respiratory normal expansion, normal respiratory effort - Cardiovascular Rhythm: regular - Abdomen Abdomen: soft, tender - Integumentary no rash - Neurologic normal coordination, normal sensation - Psychiatric oriented to time, oriented to person, oriented to place, speech is normal Results US is reviewed. PSV 245, ICA/CCA 3.3 - Labs 02/22/20 20:39 02/22/20 20:39 Microbiology - Last 24 Hours (Table) 02/22/20 20:51 Urine Culture - Final Urine,Voided Assessment and Plan Assessment: 1. Asymptomatic carotid artery stenosis >70% 2. dizziness 3. orthostatic hypotension Plan: Discuseed imaging findings with the patient. She will need a CTA of the neck moving forward for surgical planning. All of this may be done as an outpatient. She did state in closing that she has seen another surgeon for this in the recent past and was told her narrowing was around 60% at that testing. She was to have follow up with this Dr in the next few months. She may follow up with us upon discharge, or return to her previous DR. She seemingly understands and is willing to proceed as such.
[2020-02-25] MEDS: SODIUM CHLORIDE 0.9% 1,000 ML IV SCH (04:35)
[2020-02-25] MEDS: ASPIRIN 81 MG PO SCH (08:49)
[2020-02-25] MEDS: hydrALAZINE HCL 50 MG TAB PO SCH (08:49)
[2020-02-25] MEDS: amLODIPine 5 MG TAB PO SCH (08:49)
[2020-02-25] MEDS: MECLIZINE 12.5 MG TAB PO SCH (08:50)
[2020-02-25] MEDS: LACTULOSE 20 GM/30 ML CUP PO SCH (08:50)
[2020-02-25] MEDS ORDERED: ATORVASTATIN 40 MG TAB PO SCH (09:00)
--- NOTE | 2020-02-25 09:42 | PN ---
PROGRESS NOTE Mrs. Keane is a 74-year-old female who presented with symptoms of lightheadedness and dizziness. She underwent an echocardiogram that revealed preserved left ventricular size systolic function. Her carotid duplex scan revealed significant obstructive disease in the left internal carotid artery. She was evaluated by Dr. Boss yesterday. She is feeling better today. Her breathing is stable. She has no further dizziness or lightheadedness. She is ambulating without any difficulty. She continues to be at this time on amlodipine 5 mg daily, aspirin once a day, hydralazine 50 mg twice a day, meclizine on a p.r.n. basis. PHYSICAL EXAMINATION: Blood pressure running in the 140s with a heart rate in the 80s. LUNGS: Clear. HEART regular rate and rhythm. S1, S2. No S3. No rub. ABDOMEN: Soft nontender. EXTREMITIES: No edema. IMPRESSION: 1. Lightheadedness with carotid disease could be related to it, although no evidence of clear neurological event. 2. History of hypertension, stable. 3. History of coronary artery disease stable. RECOMMENDATION: From the cardiac standpoint, she should be able to be discharged home and followed as an outpatient. She will be following with her vascular surgeon regarding further intervention if needed on her carotid artery disease. MMODL / IJN: [id number] /
[2020-02-25 11:39] VITALS: BP 137/75; PULSE 75; TEMP 97.9
--- NOTE | 2020-02-25 15:04 | P.DS ---
Providers Date of admission: 02/24/20 09:19 Expected date of discharge: 02/25/20 Attending physician: Scot Florian Consults: 02/22/20 22:45 Consult Physician Routine Consulting Provider: [facility] Consult Reason/Comments: near syncope Do you want consulting provider notified?: Yes 02/24/20 15:06 Consult Physician Routine Consulting Provider: Mary Beth Boss Consult Reason/Comments: carotid stenosis left vertigo criss syncope Do you want consulting provider notified?: Yes Primary care physician: Zia Payne [facility] Course: History of Present Illness This is a 74-year-old female patient of Dr. Payne with past medical history of hypertension. Patient states that she has had dizziness on and off for the last 3 months. About 2 months ago she was placed on losartan 100 mg daily and thinks that her symptoms are worse since that time. Last initial episode where she did feel palpitations in her heart rate was up to 140s and she went to [facility] was told that she had hypertension was sent home. She states her episode that time was very severe and she had tingling in her hands and arms. She was previously in the ER and February at [facility] as well. She states she never loses consciousness but she usually sits mostly today when she's had an episode. Episodes come and go. Yesterday morning it was 180/116. A blood pressure is low. She denies any spinning sensation, chest pain, shortness of breath. Patient came into [facility] emergency center for evaluation. EKG reveals sinus mechanism heart rate is [address] or T wave abnormalities noted. Chest xray negative for an acute cardiopulmonary process. CBC unremarkable, sodium 140, potassium 4.1, creatinine 0.74, troponin negative 3. Patient has been seen by cardiology, echocardiogram is pending, orthostatics to be checked, apply cardiac monitoring, carotid Doppler ordered. At rest, patient denies any symptoms at this time. 02/23: Patient was seen for follow-up today, she had a dizziness spell yesterday evening, patient denies any palpitations during this time, however her symptoms seems to be worse with positional changes of the head. Not positional changes for orthostasis.. Patient denies any chest pain palpitations during this event, not dyspnea, patient does not have any edema, no pleurisy, no dysplasia or aspirate events. Patient denies any diplopia or headache. She still will be seen by vascular surgery secondary to critical stenosis left side, or 70% left ICA, EEG of the brain is essentially unremarkable cat scan of the brain available for review, we'll going to request 41, patient would need ENT eval for benign positional vertigo and eval for vestibular vertigo, patient might need MRI of the brain plus minus MRI of the internal auditory canal. Patient denies any tinnitus , to evaluate for central vertigo, patient might need at least a 15 day or 30 day event monitor as an outpatient, urinalysis negative for pathogen. We will keep the patient another day,, orthostatic vitals to be done, along with brain imaging, patient might need outpatient physical therapy for Lien's maneuver, start meclizine 628, patient's doing better, no further vertigo, orthostatics were positive, patient received meclizine during this procedure, patient was cleared for discharge by both Dr. 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 Cisneros or ENT preference by Dr. Payne, short course of midodrine, secondary to orthostatic hypotension, patient required IV fluids while here, however patient is still orthostatic. Autonomic dysfunction is considered, however midodrine can be considered to determine if orthostasis still persist despite nutritional supplementation. Further workup discussed with the patient include a 15 or 30 day event monitor should vertigo persist Review of Systems Constitutional: No fever, no chills, no night sweats. No weight change. No weakness, fatigue or lethargy. No daytime sleepiness. EENT: No headache. No blurred vision or double vision, no loss of vision. No loss of Hearing, no ringing in the ears, no dizziness. No nasal drainage or congestion. No epistaxis. No sore throat. Lungs: No shortness of breath, cough, no sputum production. No wheezing. Cardiovascular: No chest pain, no lower extremity edema. No palpitations. No paroxysmal nocturnal dyspnea. No orthopnea. Reports lightheadedness or dizziness. No syncopal episodes. Abdominal: No abdominal pain. No nausea, vomiting. No diarrhea. No constipa tion. No bloody or tarry stools.. No loss of appetite. Genitourinary: No dysuria, increased frequency, urgency. No urinary retention. Musculoskeletal: No myalgias. No muscle weakness, no gait dysfunction, no frequent falls. No back pain. No neck pain. Integumentary: No wounds, no lesions. No rash or pruritus. No unusual bruising. No change in hair or nails. Neurologic: No aphasia. No facial droop. No change in mentation. No head injury. No headache. No paralysis. No paresthesia. Psychiatric: No depression. No anxiety. No mood swings. Endocrine: No abnormal blood sugars. No weight change. No excessive sweating or thirst. No cold intolerance. FINAL DIAGNOSIS 1. Near syncopal episode episodes of SVT,. With orthostatic hypotension, following tests are performed Orthostatic vital signs, echocardiogram, carotid Doppler, cardiac monitoring. Cardiology consult appreciated. Patient can benefit from arrhythmia evaluation with either 15 or 30 day monitor event, midodrine short-term use, patient's acquired to increase fluids, increase protein intake, meclizine now will be when necessary repeat outpatient orthostatics when seen Dr. Payne 2. Pituitary macroadenoma, incidental finding, outpatient follow-up currently asymptomatic need MRI of the pituitary 3. Critical internal carotid stenosis left side, vascular surgeon to see the patient, Dr. Boss as an outpatient aspirin, and statin 4. Vertigo multifactorial, suspect positional vertigo, along with orthostatic hypotension cannot rule out central vertigo, CAT scan of the brain to be done for screening purposes, patient may need MRI of the brain with and without contrast as well as MRI of the internal carotid auditory canal, start meclizine, patient can benefit from outpatient physical therapy should this be benign positional vertigo. Patient needs to be evaluated f ENT consult to be done as an outpatient 2. Hypertension. Losartan 100 mg daily. Continue amlodipine 5 mg daily and add hydralazine 50 mg twice daily. Patient did not require any beta ena while here, cardiology was cleared for discharge, recommendations based on regimen provided from the hospital 3. Peripheral vascular disease, stable 4. DVT prophylaxis. Heparin subcu. 5. GI prophylaxis. Protonix. 6. COVID-19 testing in process. Patient is on cephalexin, patient's to finish course of original treatment Patient placed as an observation status. Discharge plan: Return home Patient Condition at Discharge: Good Plan - Discharge Summary Discharge Rx Participant: No New Discharge Prescriptions: New Cephalexin [Keflex] 500 mg PO Q8H 10 Days #30 cap Meclizine [Antivert] 12.5 mg PO TID PRN #20 tab PRN Reason: Vertigo hydrALAZINE HCL [Apresoline] 50 mg PO BID #60 tab Aspirin 81 mg PO DAILY chew Atorvastatin [Lipitor] 40 mg PO DAILY #30 tab amLODIPine [Norvasc] 5 mg PO QAM #30 tab Midodrine [ProAmatine] 5 mg PO TID #60 tablet Continue amLODIPine [Norvasc] 5 mg PO QAM Aspirin 325 mg PO BID #60 tab Losartan Potassium 100 mg PO HS Lactulose 10 gm PO HS Discharge Medication List amLODIPine [Norvasc] 5 mg PO QAM 09/24/17 [History] Aspirin 325 mg PO BID #60 tab 02/04/18 [Rx] Cephalexin [Keflex] 500 mg PO Q8H 10 Days #30 cap 02/22/20 [Rx] Lactulose 10 gm PO HS 02/22/20 [History] Losartan Potassium 100 mg PO HS 02/22/20 [History] Aspirin 81 mg PO DAILY chew 02/25/20 [Rx] Atorvastatin [Lipitor] 40 mg PO DAILY #30 tab 02/25/20 [Rx] Meclizine [Antivert] 12.5 mg PO TID PRN #20 tab 02/25/20 [Rx] Midodrine [ProAmatine] 5 mg PO TID #60 tablet 02/25/20 [Rx] amLODIPine [Norvasc] 5 mg PO QAM #30 tab 02/25/20 [Rx] hydrALAZINE HCL [Apresoline] 50 mg PO BID #60 tab 02/25/20 [Rx] Follow up Appointment(s)/Referral(s): Toi Guidry MD [STAFF PHYSICIAN] - 2 Weeks Yobani Laughlin DO [Doctor of Osteopathic Medicine] - 10 Days Mary Beth Boss DO [STAFF PHYSICIAN] - 3 Weeks Zia Payne MD [Primary Care Provider] - 1-2 days Patient Instructions/Handouts: Urinary Tract Infection in Women (ED), Lightheadedness (ED) Activity/Diet/Wound Care/Special Instructions: Please follow up with primary care in 1-2 days for possible cardiology referral. If you have any worsening symptoms or have an episode of passing out return immediately to the emergency room. Take antibiotic as directed. Discharge Disposition: HOME SELF-CARE
== END 2020-02-25 15:55 | disposition home or self-care (01) | DRG 310 ==
LOC: EC 19:36 → 1SOBS 22:39 → OBSVTOIN 02-24 09:19
PROVIDERS: ADMIT Internal Medicine Geriatric Medicine; ATTEND Internal Medicine Geriatric Medicine
DX: I47.1 Supraventricular tachycardia (principal); I10 Essential (primary) hypertension; I73.9 Peripheral vascular disease, unspecified; I65.22 Occlusion and stenosis of left carotid artery; I25.10 Atherosclerotic heart disease of native coronary artery without angina pectoris; Z11.59 Encounter for screening for other viral diseases; Z79.82 Long term (current) use of aspirin; Z79.899 Other long term (current) drug therapy; Z90.710 Acquired absence of both cervix and uterus; Z90.49 Acquired absence of other specified parts of digestive tract; Z87.19 Personal history of other diseases of the digestive system; Z98.890 Other specified postprocedural states; Z82.49 Family history of ischemic heart disease and other diseases of the circulatory system; Z80.0 Family history of malignant neoplasm of digestive organs; D35.2 Benign neoplasm of pituitary gland; I95.1 Orthostatic hypotension
CPT/HCPCS: 36415; 70470; 71046; 80053; 81001; 84484; 85025; 85610; 85730; 87086; 93005; 93306; 93880; 95816; 96360; 99285

== ENCOUNTER 2020-10-26 17:51 | Observation (INO) | payer MEDICARE, OTHER ==
[2020-10-26 19:24] LABS: Basophils % (A) 1 %; Eosinophils # (A) 0.2 k/uL (0-0.7); Eosinophils % (A) 2 %; HCT 43.8 % (34.0-46.0); HGB 14.6 gm/dL (11.4-16.0); Lymphocytes # (A) 1.4 k/uL (1.0-4.8); Lymphocytes % (A) 18 %; MCHC 33.3 g/dL (31.0-37.0); MCV 87.2 fL (80.0-100.0); Mean Platelet Volume 7.2; Monocytes # (A) 0.5 k/uL (0-1.0); Monocytes % (A) 6 %; Neutrophils # (A) 5.4 k/uL (1.3-7.7); Neutrophils % (A) 72 %; Platelet Count 303 k/uL (150-450); RBC 5.03 m/uL (3.80-5.40); RDW 13.4 % (11.5-15.5); WBC 7.5 k/uL (3.8-10.6)
--- NOTE | 2020-10-26 19:37 | XR ---
EXAMINATION TYPE: XR chest 2V DATE OF EXAM: 10/26/2020 COMPARISON: 02/22/2020 HISTORY: Dysrhythmia. Dizziness. TECHNIQUE: FINDINGS: There is no heart failure nor confluent pneumonic infiltrate. Costophrenic angles are clear . There are no hilar masses. There are chest leads. Thoracic aorta shows mild atheromatous change. IMPRESSION: No active cardiopulmonary disease. No change.
[2020-10-26 19:40] LABS: ALT 13 U/L (4-34); AST 18 U/L (14-36); African American GFR (CKD) >90 (>60 ml/min/1.73 sqM); Albumin 4.4 g/dL (3.5-5.0); Alkaline Phosphatase 122 U/L (38-126); Anion Gap 10 mmol/L; Blood Urea Nitrogen 13 mg/dL (7-17); Calcium 9.6 mg/dL (8.4-10.2); Carbon Dioxide 24 mmol/L (22-30); Chloride 107 mmol/L (98-107); Glucose 100 mg/dL (74-99); Magnesium 2.2 mg/dL (1.6-2.3); Non-African American GFR(CKD) 87 (>60 ml/min/1.73 sqM); Partial Thromboplastin Time 23.8 sec (22.0-30.0); Potassium 3.9 mmol/L (3.5-5.1); Prothrombin Time 10.4 sec (9.0-12.0); Sodium 141 mmol/L (137-145); Total Bilirubin 0.4 mg/dL (0.2-1.3); Total Protein 7.2 g/dL (6.3-8.2)
--- NOTE | 2020-10-26 20:07 | ED ---
General Adult HPI - General Chief complaint: Arrhythmia/Palpitations Stated complaint: rapid heart rate, dizziness Time Seen by Provider: 10/26/20 18:08 Source: patient Mode of arrival: wheelchair Limitations: no limitations - History of Present Illness Initial comments: Patient is a 75 year old female with past medical history of hypertension who presents emergency Department with reported chest pain and palpitations. Patient states that she has had chest tightness with palpitations for the past 2 days. She has also had episodes where she feels faint. Patient will take her blood pressure and has noted that it has been high recently. She normally keeps a daily log. Blood pressures were increasing when she had seen her primary care doctor last and he did put her on lisinopril. He states she's been taking his medication as directed however over the past couple of days the blood pressure has been increasingly higher. She denies previous history of cardiac disease. Does see Dr. Guidry. Denies any fevers or chills. No cough. Denies feeling shortness of breath. No other alleviating, precipitating or modifying factors - Related Data Home Medications Medication Instructions Recorded Confirmed Lactulose 10 gm PO DAILY 02/22/20 10/26/20 Aspirin EC [Ecotrin Low Dose] 81 mg PO BID 10/26/20 10/26/20 Carboxymethylcellulose Sodium 1 drop BOTH EYES QID 10/26/20 10/26/20 [Refresh Tears] amLODIPine [Norvasc] 10 mg PO HS 10/26/20 10/26/20 Previous Rx's Medication Instructions Recorded Atorvastatin [Lipitor] 40 mg PO HS #30 tab 10/28/20 lisinopriL [Zestril] 20 mg PO DAILY #30 tab 10/28/20 Allergies Allergy/AdvReac Type Severity Reaction Status Date / Time No Known Allergies Allergy Verified 10/26/20 20:32 Review of Systems ROS Statement: Those systems with pertinent positive or pertinent negative responses have been documented in the HPI. ROS Other: All systems not noted in ROS Statement are negative. Past Medical History Past Medical History: Hypertension Additional Past Medical History / Comment(s): HX HEMMOROIDS History of Any Multi-Drug Resistant Organisms: None Reported Past Surgical History: Appendectomy, Hysterectomy Additional Past Surgical History / Comment(s): HEMMOROIDECTOMY Past Anesthesia/Blood Transfusion Reactions: No Reported Reaction Past Psychological History: No Psychological Hx Reported Smoking Status: Never smoker Past Alcohol Use History: None Reported Past Drug Use History: None Reported - Past Family History Mother Family Medical History: No Reported History General Exam Limitations: no limitations General appearance: alert, in no apparent distress Head exam: Present: atraumatic, normocephalic, normal inspection Eye exam: Present: normal appearance, PERRL, EOMI. Absent: scleral icterus, conjunctival injection, periorbital swelling ENT exam: Present: normal exam, mucous membranes moist Neck exam: Present: normal inspection. Absent: tenderness, meningismus, lymphadenopathy Respiratory exam: Present: normal lung sounds bilaterally. Absent: respiratory distress, wheezes, rales, rhonchi, stridor Cardiovascular Exam: Present: regular rate, normal rhythm, normal heart sounds. Absent: systolic murmur, diastolic murmur, rubs, gallop, clicks GI/Abdominal exam: Present: soft, normal bowel sounds. Absent: distended, tenderness, guarding, rebound, rigid Extremities exam: Present: normal inspection, full ROM, normal capillary refill. Absent: tenderness, pedal edema, joint swelling, calf tenderness Back exam: Present: normal inspection Neurological exam: Present: alert, oriented X3, CN II-XII intact Psychiatric exam: Present: normal affect, normal mood Skin exam: Present: warm, dry, intact, normal color. Absent: rash Course Vital Signs 10/26/20 10/26/20 10/26/20 17:56 18:41 18:43 Temperature 98 F Pulse Rate 95 Pulse Rate [ 86 Beet Flumer ] Respiratory 16 Rate Blood Pressure 157/92 145/101 O2 Sat by Pulse 99 Oximetry 10/26/20 21:05 Temperature Pulse Rate 79 Pulse Rate [ Beet Flumer ] Respiratory 22 Rate Blood Pressure 141/95 O2 Sat by Pulse 97 Oximetry EKG Findings - EKG Comments: EKG Findings:: EKG demonstrates normal sinus rhythm with a ventricular rate of 87. NH interval 156. QRS 84. QTC 442. No acute ST segment elevations or depressions concerning for ischemic changes Medical Decision Making - Medical Decision Making Upon arrival patient is placed into room 2. A thorough history and physical exam was performed. 12-lead EKG is performed. IV is established and the patient was sent for chest x-ray. Laboratory studies are reviewed and discussed with the patient. As she is reporting to new onset chest pain I did recommend overnight observation in order to trend her troponins for which the patient did agree to. I spoke with Dr. Florian who accepted admission. Patient is awaiting a bed on the floor - Lab Data Result diagrams: 10/27/20 06:39 10/27/20 06:39 Lab Results 10/26/20 10/26/20 10/26/20 Range/Units 18:33 18:33 18:33 WBC 7.5 (3.8-10.6) k/uL RBC 5.03 (3.80-5.40) m/uL Hgb 14.6 (11.4-16.0) gm/dL Hct 43.8 (34.0-46.0) % MCV 87.2 (80.0-100.0) fL MCH 29.0 (25.0-35.0) pg MCHC 33.3 (31.0-37.0) g/dL RDW 13.4 (11.5-15.5) % Plt Count 303 (150-450) k/uL MPV 7.2 Neutrophils % 72 % Lymphocytes % 18 % Monocytes % 6 % Eosinophils % 2 % Basophils % 1 % Neutrophils # 5.4 (1.3-7.7) k/uL Lymphocytes # 1.4 (1.0-4.8) k/uL Monocytes # 0.5 (0-1.0) k/uL Eosinophils # 0.2 (0-0.7) k/uL Basophils # 0.0 (0-0.2) k/uL PT 10.4 (9.0-12.0) sec INR 1.0 (<1.2) APTT 23.8 (22.0-30.0) sec Sodium 141 (137-145) mmol/L Potassium 3.9 (3.5-5.1) mmol/L Chloride 107 (98-107) mmol/L Carbon Dioxide 24 (22-30) mmol/L Anion Gap 10 mmol/L BUN 13 (7-17) mg/dL Creatinine 0.66 (0.52-1.04) mg/dL Est GFR (CKD-EPI)AfAm >90 (>60 ml/min/1.73 sqM) Est GFR (CKD-EPI)NonAf 87 (>60 ml/min/1.73 sqM) Glucose 100 H (74-99) mg/dL Calcium 9.6 (8.4-10.2) mg/dL Magnesium 2.2 (1.6-2.3) mg/dL Total Bilirubin 0.4 (0.2-1.3) mg/dL AST 18 (14-36) U/L ALT 13 (4-34) U/L Alkaline Phosphatase 122 (38-126) U/L Troponin I (0.000-0.034) ng/mL Total Protein 7.2 (6.3-8.2) g/dL Albumin 4.4 (3.5-5.0) g/dL TSH 2.070 (0.465-4.680) mIU/L 10/26/20 Range/Units 18:33 WBC (3.8-10.6) k/uL RBC (3.80-5.40) m/uL Hgb (11.4-16.0) gm/dL Hct (34.0-46.0) % MCV (80.0-100.0) fL MCH (25.0-35.0) pg MCHC (31.0-37.0) g/dL RDW (11.5-15.5) % Plt Count (150-450) k/uL MPV Neutrophils % % Lymphocytes % % Monocytes % % Eosinophils % % Basophils % % Neutrophils # (1.3-7.7) k/uL Lymphocytes # (1.0-4.8) k/uL Monocytes # (0-1.0) k/uL Eosinophils # (0-0.7) k/uL Basophils # (0-0.2) k/uL PT (9.0-12.0) sec INR (<1.2) APTT (22.0-30.0) sec Sodium (137-145) mmol/L Potassium (3.5-5.1) mmol/L Chloride (98-107) mmol/L Carbon Dioxide (22-30) mmol/L Anion Gap mmol/L BUN (7-17) mg/dL Creatinine (0.52-1.04) mg/dL Est GFR (CKD-EPI)AfAm (>60 ml/min/1.73 sqM) Est GFR (CKD-EPI)NonAf (>60 ml/min/1.73 sqM) Glucose (74-99) mg/dL Calcium (8.4-10.2) mg/dL Magnesium (1.6-2.3) mg/dL Total Bilirubin (0.2-1.3) mg/dL AST (14-36) U/L ALT (4-34) U/L Alkaline Phosphatase (38-126) U/L Troponin I <0.012 (0.000-0.034) ng/mL Total Protein (6.3-8.2) g/dL Albumin (3.5-5.0) g/dL TSH (0.465-4.680) mIU/L Disposition Clinical Impression: Chest pain, Palpitations, Accelerated hypertension Disposition: ADMITTED IP TO THIS [facility] Condition: Good Is patient prescribed a controlled substance at d/c from ED?: No Decision to Admit Reason: Admit from EC Decision Date: 10/26/20 Decision Time: 20:59
[2020-10-26] MEDS ORDERED: NALOXONE 0.4 MG/ML 1 ML VIAL IV PRN (20:59)
[2020-10-26] MEDS ORDERED: ASPIRIN 81 MG PO STA (21:00)
[2020-10-26] MEDS ORDERED: NON FORMULARY DRUG (Carboxymethylcellulose Sodium [Refresh Tears] 15 ML Drops) BOTH EYES SCH (22:15)
[2020-10-26] MEDS: amLODIPine 10 MG TAB PO SCH (23:36)
[2020-10-27 07:15] LABS: Basophils % (A) 1 %; Eosinophils # (A) 0.2 k/uL (0-0.7); Eosinophils % (A) 3 %; HCT 41.7 % (34.0-46.0); HGB 13.6 gm/dL (11.4-16.0); Lymphocytes # (A) 1.5 k/uL (1.0-4.8); Lymphocytes % (A) 25 %; MCH 28.8 pg (25.0-35.0); MCHC 32.7 g/dL (31.0-37.0); MCV 88.1 fL (80.0-100.0); Mean Platelet Volume 6.7; Monocytes # (A) 0.4 k/uL (0-1.0); Monocytes % (A) 7 %; Neutrophils # (A) 3.9 k/uL (1.3-7.7); Neutrophils % (A) 63 %; Platelet Count 280 k/uL (150-450); RBC 4.73 m/uL (3.80-5.40); RDW 13.5 % (11.5-15.5); WBC 6.1 k/uL (3.8-10.6)
[2020-10-27 07:27] LABS: African American GFR (CKD) >90 (>60 ml/min/1.73 sqM); Anion Gap 8 mmol/L; Blood Urea Nitrogen 16 mg/dL (7-17); Calcium 9.4 mg/dL (8.4-10.2); Carbon Dioxide 28 mmol/L (22-30); Chloride 106 mmol/L (98-107); Glucose 107 mg/dL (74-99); Non-African American GFR(CKD) 79 (>60 ml/min/1.73 sqM); Potassium 4.1 mmol/L (3.5-5.1); Sodium 142 mmol/L (137-145)
[2020-10-27] MEDS: ASPIRIN 81 MG PO SCH ×2 (08:32→22:42)
[2020-10-27] MEDS: LACTULOSE 20 GM/30 ML CUP PO SCH (08:32)
[2020-10-27] MEDS ORDERED: lisinopriL 10 MG TAB PO STA (08:40)
[2020-10-27] MEDS ORDERED: lisinopriL 10 MG TAB PO SCH (09:00)
[2020-10-27] MEDS: PANTOPRAZOLE 40 MG TABLET PO SCH (09:13)
--- NOTE | 2020-10-27 09:35 | P.CRDCN ---
History of Present Illness Consult date: 10/27/20 Requesting physician: Scot Florian Reason for Consult (text): chest pain, accelerated HTN Chief complaint: elevated blood pressure, lightheadedness History of present illness: This is a pleasant 75-year-old female patient who follows with Dr. Guidry in the office. She has a past medical history of hypertension, hyperlipidemia for which she does not take any statins due to fear of side effects, carotid artery disease for which she follows with Dr. Fitzgerald regularly and this has been stable with 60% blockage on the right and 40% on the left. She presented to the emergency department due to elevated blood pressure which had been fluctuating at home with symptoms of lightheadedness and near syncope. She has been under more stress at home but otherwise no major changes. Although she does not add salt to her food she does not follow a low-sodium diet. She was last in to see Dr. Slater about 6 months ago at which time she underwent stress testing and event monitor due to some complaints of palpitations and according to her both were unremarkable. She does have occasional palpitations where her heart rate will go up in the 130s to 140s which she notes on her blood pressure monitor. Upon presentation patient's blood pressure 157/92. Her heart rate has been normal. Chest x-ray showed no active cardiopulmonary disease, no change. EKG showed normal sinus rhythm with no evidence of acute ischemia. Echocardiogram with Doppler study was done during a previous admission in January 2020 which showed normal LV systolic function and mildly enlarged RV with no significant valvular abnormalities and no segmental wall motion abnormalities. Blood pressure remained high since admission and lisinopril was increased by primary. She's had no evidence of tachycardia since admission. She's been afebrile. Laboratory values showed 4 levels negative 3 with normal CBC, electrolytes and renal function. Upon examination she is resting comfortably in bed. She denies any current complaints. She's had only mild lightheadedness since admission but no near syncope. She denies any complaints of chest discomfort. She does have dyspnea on exertion with climbing stairs but feels this is related to her inactivity home. She has no orthopnea or PND. She does get occasional lower extremity edema that she notices at night but is gone in the morning. Past Medical History Past Medical History: Hypertension Additional Past Medical History / Comment(s): HX HEMMOROIDS History of Any Multi-Drug Resistant Organisms: None Reported Past Surgical History: Appendectomy, Hysterectomy Additional Past Surgical History / Comment(s): HEMMOROIDECTOMY Past Anesthesia/Blood Transfusion Reactions: No Reported Reaction Past Psychological History: No Psychological Hx Reported Smoking Status: Never smoker Past Alcohol Use History: None Reported Past Drug Use History: None Reported - Past Family History Mother Family Medical History: No Reported History Medications and Allergies Home Medications Medication Instructions Recorded Confirmed Type Lactulose 10 gm PO DAILY 02/22/20 10/26/20 History Aspirin EC [Ecotrin Low Dose] 81 mg PO BID 10/26/20 10/26/20 History Carboxymethylcellulose Sodium 1 drop BOTH EYES QID 10/26/20 10/26/20 History [Refresh Tears] Lisinopril [Prinivil] 10 mg PO DAILY 10/26/20 10/26/20 History amLODIPine [Norvasc] 10 mg PO HS 10/26/20 10/26/20 History Allergies Allergy/AdvReac Type Severity Reaction Status Date / Time No Known Allergies Allergy Verified 10/26/20 20:32 Physical Exam Vitals: Vital Signs Temp Pulse Pulse Resp BP BP Pulse Ox 10/27/20 07:00 97.8 F 77 18 152/84 98 10/27/20 02:00 66 10/26/20 22:25 98.0 F 82 18 163/78 99 10/26/20 22:16 98.2 F 80 20 142/90 98 10/26/20 21:05 79 22 141/95 97 10/26/20 18:43 86 10/26/20 18:41 145/101 10/26/20 17:56 98 F 95 16 157/92 99 Intake and Output 10/26/20 10/27/20 10/27/20 22:59 06:59 14:59 Other: Voiding Method Toilet Weight 98.883 kg PHYSICAL EXAMINATION: This is a 75-year-old female in no apparent distress at the time of my examination. VITAL SIGNS: Blood pressure 152/84, heart rate 77, respirations 18, temp 0.8F. Patient is 98 % on . HEENT: Head is atraumatic, normocephalic. Pupils are equal, round. Sclerae anicteric. Conjunctivae are clear. Mucous membranes of the mouth are moist. Neck is supple. There is no elevated jugular venous pressure. No carotid bruit is heard. CHEST EXAMINATION: Clear to auscultation bilaterally. No wheezes rales or rhonchi. Respirations even and nonlabored. HEART EXAMINATION: Heart regular, positive S1 and S2. No S3. No S4. No clicks, rubs or murmurs ABDOMEN: Soft, nontender. Bowel sounds are heard. No organomegaly noted. EXTREMITIES: 2+ peripheral pulses with no evidence of peripheral edema and no calf tenderness noted. NEUROLOGIC EXAMINATION: Patient is awake, alert and oriented x3. Results 10/27/20 06:39 10/27/20 06:39 Cardiac Enzymes 10/26/20 10/26/20 10/26/20 Range/Units 18:33 18:33 21:28 AST 18 (14-36) U/L Troponin I <0.012 <0.012 (0.000-0.034) ng/mL 10/27/20 Range/Units 00:50 AST (14-36) U/L Troponin I <0.012 (0.000-0.034) ng/mL Coagulation 10/26/20 Range/Units 18:33 PT 10.4 (9.0-12.0) sec APTT 23.8 (22.0-30.0) sec CBC 10/26/20 10/27/20 Range/Units 18:33 06:39 WBC 7.5 6.1 (3.8-10.6) k/uL RBC 5.03 4.73 (3.80-5.40) m/uL Hgb 14.6 13.6 (11.4-16.0) gm/dL Hct 43.8 41.7 (34.0-46.0) % Plt Count 303 280 (150-450) k/uL Comprehensive Metabolic Panel 10/26/20 10/27/20 Range/Units 18:33 06:39 Sodium 141 142 (137-145) mmol/L Potassium 3.9 4.1 (3.5-5.1) mmol/L Chloride 107 106 (98-107) mmol/L Carbon Dioxide 24 28 (22-30) mmol/L BUN 13 16 (7-17) mg/dL Creatinine 0.66 0.75 (0.52-1.04) mg/dL Glucose 100 H 107 H (74-99) mg/dL Calcium 9.6 9.4 (8.4-10.2) mg/dL AST 18 (14-36) U/L ALT 13 (4-34) U/L Alkaline Phosphatase 122 (38-126) U/L Total Protein 7.2 (6.3-8.2) g/dL Albumin 4.4 (3.5-5.0) g/dL Current Medications Generic Name Dose Route Start Last Admin Trade Name Freq PRN Reason Stop Dose Admin Amlodipine Besylate 10 mg 10/26/20 22:15 10/26/20 23:36 Amlodipine 10 Mg Tab PO 10 mg HS CHANTELLE Administration Aspirin 81 mg 10/27/20 09:00 10/27/20 08:32 Aspirin 81 Mg PO 81 mg BID CHANTELLE Administration Lactulose 10 gm 10/27/20 09:00 10/27/20 08:32 Lactulose 20 Gm/30 Ml Cup PO 10 gm DAILY CHANTELLE Administration Lisinopril 20 mg 10/28/20 09:00 Lisinopril 20 Mg Tab PO DAILY CHANTELLE Naloxone HCl 0.2 mg 10/26/20 20:59 Naloxone 0.4 Mg/Ml 1 Ml Vial IV Q2M PRN Opioid Reversal Pantoprazole Sodium 40 mg 10/27/20 08:45 10/27/20 09:13 Pantoprazole 40 Mg Tablet PO 40 mg [id number] CHANTELLE Administration Intake and Output 10/26/20 10/27/20 10/27/20 22:59 06:59 14:59 Other: Voiding Method Toilet Weight 98.883 kg 10/27/20 06:39 10/27/20 06:39 Assessment and Plan Assessment: #1 symptoms of lightheadedness and near syncope with elevated blood pressure #2 poorly controlled hypertension #3 carotid artery disease #4 hyperlipidemia, not currently on a statin #5 palpitations Plan: From cardiology's perspective I discussed in detail the rationale for use of statins especially in patients with known carotid artery disease. We will add atorvastatin 40 mg by mouth daily at bedtime. We will review echocardiogram ordered by primary. Continue to follow the blood pressure. If blood pressure remains poorly controlled patient may benefit from thiazide diuretic. Patient was also educated on the importance of following a low sodium diet and reading food labels. 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 Patient was seen and examined.
--- NOTE | 2020-10-27 10:49 | P.HPIM ---
History of Present Illness H&P Date: 10/27/20 History of Present Illness This is a 74-year-old female patient of Dr. Payne with past medical history of hypertension, peripheral vascular disease, carotid artery stenosis of 70% on the left. Patient was last hospitalized in January 2020 at which time she tended with a near syncopal episode with episodes of SVT and uncontrolled hypertension. Patient was started on hydralazine 50 mg twice daily, aspirin 81 mg daily, atorvastatin 40 mg daily, amlodipine 5 mg daily, midodrine 5 mg 3 times daily with instructions to hold if systolic blood pressure greater than 1 60 along with Antivert. 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 She states she has followed with Dr. Dowell, rn birthing, and no abnormality was found. She also follows with Dr. Raymond and pituitary abnormality was ruled out. She was told that she had TIA and she follows with Dr. Fitzgerald due to carotid artery disease. Echocardiogram in January of last year revealed EF of 55-60%, and no significant valvular abnormalities. She denies history of COVID-19 infection. Patient states that she has feeling fine but has noticed that her blood pressures in the diastolic number running in the 90s. Yesterday, during the day she was feeling fine and all of a sudden she was feeling woozy like she was going to pass out and did not feel well. She checked her blood pressure was 175/101 and her heart rate was 136. She states she felt some nausea. She denies having any chest pain, tightness in her chest but she does have occasional brief sensation of pain. Her hired hand is Dr. Guidry and she has had a stress test done in the past year which she reports was normal also had an event monitor that she reports as normal. Patient came into [facility] emergency center for evaluation. Her initial blood pressure 157/92 and 145/101. Heart rate in the 80s and 90s, afebrile, pulse ox 99% on room air. Chest x-ray shows no acute cardiopulmonary disease. EKG was a sinus rhythm with no acute ST changes. CBC was unremarkable. Electrolytes normal, creatinine 0.66. Troponins negative on 3 draws. Liver function tests normal. Magnesium 2.2. Coronavirus PCR not detected. TSH 2.070. Patient placed on the observation unit and cardiology consult requested. Review of Systems Constitutional: No fever, no chills, no night sweats. No weight change. No weakness, fatigue or lethargy. No daytime sleepiness. EENT: No headache. No blurred vision or double vision, no loss of vision. No loss of Hearing, no ringing in the ears, no dizziness. No nasal drainage or congestion. No epistaxis. No sore throat. Lungs: No shortness of breath, cough, no sputum production. No wheezing. Cardiovascular: No chest pain, no lower extremity edema. No palpitations. No paroxysmal nocturnal dyspnea. No orthopnea. Reports lightheadedness or dizziness. Reports near syncopal episodes. Abdominal: No abdominal pain. No nausea, vomiting. No diarrhea. No constipation. No bloody or tarry stools.. No loss of appetite. Genitourinary: No dysuria, increased frequency, urgency. No urinary retention. Musculoskeletal: No myalgias. No muscle weakness, no gait dysfunction, no frequent falls. No back pain. No neck pain. Integumentary: No wounds, no lesions. No rash or pruritus. No unusual bruising. No change in hair or nails. Neurologic: No aphasia. No facial droop. No change in mentation. No head injury. No headache. No paralysis. No paresthesia. Psychiatric: No depression. No anxiety. No mood swings. Endocrine: No abnormal blood sugars. No weight change. Social history Patient is a lifelong nonsmoker, no alcohol marijuana or illicit drug use. She is a and lives alone. Family history Mother is alive at age 98 with history of coronary artery disease. Father at age 92 with history of coronary artery disease. Patient has total of 3 brothers. One from a motor vehicle accident at age 18. One is alive with history of IA and CABG. One has history of passing out episodes with unclear etiology. Patient has one sister with history of colon cancer. Patient has 5 children with no major medical problems. Physical Examination Gen: This is 74-year-old female patient resting in bed and appears comfortable at rest. HEENT: Head is atraumatic, normocephalic. Pupils equal, round. Sclerae is anicteric. NECK: Supple. No JVD. No lymphadenopathy. No thyromegaly. LUNGS: Clear to auscultation. No wheezes or rhonchi. No intercostal retractions. HEART: Regular rate and rhythm. No murmur. ABDOMEN: Soft. Bowel sounds are present. No masses. No tenderness. EXTREMITIES: No pedal edema. No calf tenderness. Dorsalis pedis palpable bilaterally. NEUROLOGICAL: Patient is awake, alert and oriented x3. Cranial nerves 2 through 12 are grossly intact. Assessment and Plan 1. Lightheadedness and near syncopal episode with elevated blood pressure. Orthostatic vital signs, echocardiogram. Cardiology consult appreciated. Anginal monitor overnight and probable discharge tomorrow. 2. Hypertension, uncontrolled. Continue amlodipine 10 mg at bedtime and increase lisinopril to 20 mg daily. 3. Carotid artery disease with 70% stenosis on the left carotid artery. Cardiology has started patient on Lipitor 40 mg at bedtime 4. Peripheral vascular disease, stable 5. DVT prophylaxis. Heparin subcu. 6. GI prophylaxis. Protonix. Patient placed as an observation status. Discharge plan: Return home Impression and plan of care have been directed as dictated by the signing physician. Elif Maharaj nurse practitioner acting as scribe for signing physician. Past Medical History Past Medical History: Hypertension Additional Past Medical History / Comment(s): HX HEMMOROIDS History of Any Multi-Drug Resistant Organisms: None Reported Past Surgical History: Appendectomy, Hysterectomy Additional Past Surgical History / Comment(s): HEMMOROIDECTOMY Past Anesthesia/Blood Transfusion Reactions: No Reported Reaction Past Psychological History: No Psychological Hx Reported Smoking Status: Never smoker Past Alcohol Use History: None Reported Past Drug Use History: None Reported - Past Family History Mother Family Medical History: No Reported History Medications and Allergies Home Medications Medication Instructions Recorded Confirmed Type Lactulose 10 gm PO DAILY 02/22/20 10/26/20 History Aspirin EC [Ecotrin Low Dose] 81 mg PO BID 10/26/20 10/26/20 History Carboxymethylcellulose Sodium 1 drop BOTH EYES QID 10/26/20 10/26/20 History [Refresh Tears] Lisinopril [Prinivil] 10 mg PO DAILY 10/26/20 10/26/20 History amLODIPine [Norvasc] 10 mg PO HS 10/26/20 10/26/20 History Allergies Allergy/AdvReac Type Severity Reaction Status Date / Time No Known Allergies Allergy Verified 02/27/21 20:32 Physical Exam Vitals: Vital Signs Temp Pulse Pulse Resp BP BP Pulse Ox 10/27/20 07:00 97.8 F 77 18 152/84 98 10/27/20 02:00 66 10/26/20 22:25 98.0 F 82 18 163/78 99 10/26/20 22:16 98.2 F 80 20 142/90 98 10/26/20 21:05 79 22 141/95 97 10/26/20 18:43 86 10/26/20 18:41 145/101 10/26/20 17:56 98 F 95 16 157/92 99 Intake and Output 10/26/20 10/27/20 10/27/20 22:59 06:59 14:59 Other: Voiding Method Toilet Weight 98.883 kg Results CBC & Chem 7: 10/27/20 06:39 10/27/20 06:39 Labs: Abnormal Lab Results - Last 24 Hours (Table) 10/26/20 10/27/20 Range/Units 18:33 06:39 Glucose 100 H 107 H (74-99) mg/dL Thrombosis Risk Factor Assmnt - Choose All That Apply Each Risk Factor Represents 2 Points: Age 61-74 years Thrombosis Risk Factor Assessment Total Risk Factor Score: 2 Thrombosis Risk Factor Assessment Level: Low Risk
[2020-10-27] MEDS ORDERED: ONDANSETRON 4 MG/2 ML VIAL IVP PRN (17:46)
[2020-10-27] MEDS ORDERED: ATORVASTATIN 40 MG TAB PO SCH (21:00)
[2020-10-27] MEDS: amLODIPine 10 MG TAB PO SCH (22:41)
[2020-10-27] MEDS: HEPARIN SODIUM,PORCINE 5,000 UNIT/ML 1 ML VIAL SQ SCH (22:41)
[2020-10-28 07:15] VITALS: BP 146/79; PULSE 93; RESP 18; TEMP 97.9
[2020-10-28] MEDS: PANTOPRAZOLE 40 MG TABLET PO SCH (08:20)
[2020-10-28] MEDS: ASPIRIN 81 MG PO SCH (08:20)
[2020-10-28] MEDS: HEPARIN SODIUM,PORCINE 5,000 UNIT/ML 1 ML VIAL SQ SCH (08:20)
--- NOTE | 2020-10-28 08:52 | P.DS ---
Providers Date of admission: 10/26/20 20:59 Expected date of discharge: 10/28/20 Attending physician: Scot Florian Consults: 10/26/20 21:00 Consult Physician Urgent Consulting Provider: [facility] Consult Reason/Comments: acute chest pain, accelerated htn Do you want consulting provider notified?: Yes Primary care physician: Zia Payne [facility] Course: History of Present Illness This is a 74-year-old female patient of Dr. Payne with past medical history of hypertension, peripheral vascular disease, carotid artery stenosis of 70% on the left. Patient was last hospitalized in January 2020 at which time she tended with a near syncopal episode with episodes of SVT and uncontrolled hypertension. Patient was started on hydralazine 50 mg twice daily, aspirin 81 mg daily, atorvastatin 40 mg daily, amlodipine 5 mg daily, midodrine 5 mg 3 times daily with instructions to hold if systolic blood pressure greater than 160 along with Antivert. 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 She states she has followed with Dr. 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 She also follows with Dr. Raymond and pituitary abnormality was ruled out. She was told that she had TIA and she follows with Dr. Fitzgerald due to carotid artery disease. Echocardiogram in January of last year revealed EF of 55-60%, and no significant valvular abnormalities. She denies history of COVID-19 infection. Patient states that she has feeling fine but has noticed that her blood pressures in the diastolic number running in the 90s. Yesterday, during the day she was feeling fine and all of a sudden she was feeling woozy like she was andrea g to pass out and did not feel well. She checked her blood pressure was 175/101 and her heart rate was 136. She states she felt some nausea. She denies having any chest pain, tightness in her chest but she does have occasional brief sensation of pain. Her alodize machine helper is Dr. Guidry and she has had a stress test done in the past year which she reports was normal also had an event monitor that she reports as normal. Patient came into [facility] emergency center for evaluation. Her initial blood pressure 157/92 and 145/101. Heart rate in the 80s and 90s, afebrile, pulse ox 99% on room air. Chest x-ray shows no acute cardiopulmonary disease. EKG was a sinus rhythm with no acute ST changes. CBC was unremarkable. Electrolytes normal, creatinine 0.66. Troponins negative on 3 draws. Liver function tests normal. Magnesium 2.2. Coronavirus PCR not detected. TSH 2.070. Patient placed on the observation unit and cardiology consult requested. 10/28: She denies having any chest pain or shortness of breath. Her blood pressure is improved and she was orthostatic positive. She's been afebrile, heart rate in the 90s, pulse ox 96% on room air. Echocardiogram reveals EF of 55-60% with trace mitral regurgitation, mild tricuspid regurgitation, borderline pulmonary artery hypertension. She will be discharged home today in stable condition. Assessment and Plan 1. Lightheadedness and near syncopal episode with elevated blood pressure. 2. Hypertension, uncontrolled. 3. Carotid artery disease with 70% stenosis on the left carotid artery. 4. Peripheral vascular disease, stable Discharge plan: Return home Impression and plan of care have been directed as dictated by the signing physician. Elif Maharaj nurse practitioner acting as scribe for signing physician. Patient Condition at Discharge: Good Plan - Discharge Summary Discharge Rx Participant: No New Discharge Prescriptions: New Atorvastatin [Lipitor] 40 mg PO HS #30 tab lisinopriL [Zestril] 20 mg PO DAILY #30 tab Continue Lactulose 10 gm PO DAILY amLODIPine [Norvasc] 10 mg PO HS Aspirin EC [Ecotrin Low Dose] 81 mg PO BID Carboxymethylcellulose Sodium [Refresh Tears] 1 drop BOTH EYES QID Discontinued Lisinopril [Prinivil] 10 mg PO DAILY Discharge Medication List Lactulose 10 gm PO DAILY 02/22/20 [History] Aspirin EC [Ecotrin Low Dose] 81 mg PO BID 10/26/20 [History] Carboxymethylcellulose Sodium [Refresh Tears] 1 drop BOTH EYES QID 10/26/20 [History] amLODIPine [Norvasc] 10 mg PO HS 10/26/20 [History] Atorvastatin [Lipitor] 40 mg PO HS #30 tab 10/28/20 [Rx] lisinopriL [Zestril] 20 mg PO DAILY #30 tab 10/28/20 [Rx] Follow up Appointment(s)/Referral(s): Toi Guidry MD [STAFF PHYSICIAN] - 2 Weeks Zia Payne MD [Primary Care Provider] - 1-2 days
[2020-10-28] MEDS ORDERED: lisinopriL 20 MG TAB PO SCH (09:00)
[2020-10-28] MEDS: LACTULOSE 20 GM/30 ML CUP PO SCH (10:39)
--- NOTE | 2020-10-28 13:00 | ECHOF ---
Referral Reason:LVF MEASUREMENTS -------- HEIGHT: 170.2 cm WEIGHT: 98.9 kg BP: 146/79 RVIDd: 3.8 cm (< 3.3) IVSd: 1.8 cm (0.6 - 1.1) LVIDd: 2.1 cm (3.9 - 5.3) LVPWd: 1.6 cm (0.6 - 1.1) IVSs: 2.3 cm LVIDs: 1.6 cm LVPWs: 2.4 cm LAESV Index (A-L): 23.79 ml/m Ao Diam: 3.3 cm (2.0 - 3.7) AV Cusp: 2.0 cm (1.5 - 2.6) LA Diam: 3.5 cm (2.7 - 3.8) MV E Tito: 0.79 m/s MV DecT: 87 ms MV A Tito: 1.28 m/s MV E/A Ratio: 0.62 RAP: 5.00 mmHg RVSP: 33.77 mmHg FINDINGS -------- Sinus rhythm. This was a technically adequate study. The left ventricular size is normal. There is severe concentric left ventricular hypertrophy. Ove rall left ventricular systolic function is normal with, an EF between 55 - 60 %. The diastolic fill ing pattern is normal for the age of the patient 11.64. The right ventricle is mild to moderately enlarged. Normal LA size by volume 22+/-6 ml/m2. The right atrial size is normal. Interatrial and interventricular septum intact. There is mild aortic valve sclerosis. There is no evidence of aortic regurgitation. There is no e vidence of aortic stenosis. There is trace mitral regurgitation. Mild tricuspid regurgitation present. There is borderline pulmonary artery hypertension. The righ t ventricular systolic pressure, as measured by Doppler, is 33.77mmHg. Trace/mild (physiologic) pulmonic regurgitation. The aortic root size is normal. IVC Not well visulized. There is no pericardial effusion. CONCLUSIONS -------- 1. The left ventricular size is normal. 2. There is severe concentric left ventricular hypertrophy. 3. Overall left ventricular systolic function is normal with, an EF between 55 - 60 %. 4. The right ventricle is mild to moderately enlarged. 5. There is mild aortic valve sclerosis. 6. There is trace mitral regurgitation. 7. Mild tricuspid regurgitation present. 8. There is borderline pulmonary artery hypertension. 9. The right ventricular systolic pressure, as measured by Doppler, is 33.77mmHg. 10. Trace/mild (physiologic) pulmonic regurgitation. SPOUT LINER: Mavis Cummins RDCS
--- NOTE | 2020-10-28 14:30 | P.PN ---
Subjective Progress Note Date: 10/28/20 HISTORY OF PRESENT ILLNESS: Patient examined this morning at the bedside. She denies chest pain or pressure. Denies shortness of breath. Denies dizziness or lightheadedness. Blood pressure is stable. Echocardiogram completed revealed ejection fraction 55-60%, trace mitral regurgitation, and mild tricuspid regurgitation. PHYSICAL EXAM: VITAL SIGNS: Reviewed. GENERAL: Well-developed in no acute distress. NECK: Supple. No JVD or thyromegaly LUNGS: Respirations even and unlabored. Lungs essentially clear to auscultation bilaterally. HEART: Regular rate and rhythm. S1 and S2 heard. EXTREMITIES: Normal range of motion. No clubbing or cyanosis. Peripheral pulses intact. No lower extremity edema ASSESSMENT: #1 symptoms of lightheadedness and near syncope with elevated blood pressure #2 poorly controlled hypertension #3 carotid artery disease #4 hyperlipidemia, not currently on a statin #5 palpitations PLAN: Patient is stable for discharge home today from a cardiac standpoint. She is to follow up outpatient. Nurse practitioner note has been reviewed by physician. Signing provider agrees with the documented findings, assessment, and plan of care. Objective - Vital Signs Vital signs: Vital Signs Temp 97.9 F 10/28/20 06:47 Pulse 93 10/28/20 06:47 Resp 18 10/28/20 06:47 BP 146/79 10/28/20 06:47 Pulse Ox 98 10/28/20 10:44 Intake & Output 10/27/20 10/28/20 10/28/20 18:59 06:59 18:59 Intake Total 480 Balance 480 Intake: Oral 480 Other: Voiding Method Toilet # Voids 3 1 1 - Labs CBC & Chem 7: 10/27/20 06:39 10/27/20 06:39
== END 2020-10-28 13:47 ==
LOC: EC 17:51 → 6NMEDSUR 20:59
PROVIDERS: ADMIT Internal Medicine Geriatric Medicine; ATTEND Internal Medicine Geriatric Medicine
DX: R07.89 Other chest pain (principal); R55 Syncope and collapse; I10 Essential (primary) hypertension; I65.22 Occlusion and stenosis of left carotid artery; I36.1 Nonrheumatic tricuspid (valve) insufficiency; I73.9 Peripheral vascular disease, unspecified; R60.0 Localized edema; I65.23 Occlusion and stenosis of bilateral carotid arteries; R06.09 Other forms of dyspnea; Z20.828 Contact with and (suspected) exposure to other viral communicable diseases; Z79.82 Long term (current) use of aspirin; Z79.899 Other long term (current) drug therapy; Z87.19 Personal history of other diseases of the digestive system; Z90.710 Acquired absence of both cervix and uterus; Z90.49 Acquired absence of other specified parts of digestive tract; Z86.73 Personal history of transient ischemic attack (TIA), and cerebral infarction without residual deficits; Z82.49 Family history of ischemic heart disease and other diseases of the circulatory system; Z80.0 Family history of malignant neoplasm of digestive organs
CPT/HCPCS: 96372 ×2; 96374; 93005 ×2; 99285; 36415; 94760; 93306; 80053; 80048; 84443; 83735; 84484 ×2; 85025 ×2; 85610; 85730; 87635; 71046; G0378 ×3; J1644 ×2; J2405

== ENCOUNTER 2021-08-01 15:55 | Observation (INO) | payer MEDICARE, OTHER ==
[2021-08-01 19:51] LABS: Basophils % (A) 1 %; Eosinophils % (A) 1 %; HCT 41.1 % (34.0-46.0); HGB 14.1 gm/dL (11.4-16.0); Lymphocytes # (A) 0.9 k/uL (1.0-4.8); Lymphocytes % (A) 32 %; MCH 29.1 pg (25.0-35.0); MCHC 34.3 g/dL (31.0-37.0); MCV 84.8 fL (80.0-100.0); Mean Platelet Volume 7.8; Monocytes # (A) 0.2 k/uL (0-1.0); Monocytes % (A) 7 %; Neutrophils # (A) 1.8 k/uL (1.3-7.7); Neutrophils % (A) 59 %; Platelet Count 177 k/uL (150-450); RBC 4.85 m/uL (3.80-5.40); RDW 13.3 % (11.5-15.5)
[2021-08-01 20:00] LABS: ALT 32 U/L (4-34); AST 39 U/L (14-36); African American GFR (CKD) 90 (>60 ml/min/1.73 sqM); Albumin 3.9 g/dL (3.5-5.0); Alkaline Phosphatase 83 U/L (38-126); Anion Gap 8 mmol/L; Blood Urea Nitrogen 14 mg/dL (7-17); Calcium 8.5 mg/dL (8.4-10.2); Carbon Dioxide 27 mmol/L (22-30); Chloride 103 mmol/L (98-107); Glucose 105 mg/dL (74-99); Non-African American GFR(CKD) 78 (>60 ml/min/1.73 sqM); Potassium 3.5 mmol/L (3.5-5.1); Sodium 138 mmol/L (137-145); Total Bilirubin 0.4 mg/dL (0.2-1.3); Total Protein 6.7 g/dL (6.3-8.2)
--- NOTE | 2021-08-01 20:46 | ED ---
General Adult HPI - General Chief complaint: Dizziness Stated complaint: high bp,heart rate,dizzy Time Seen by Provider: 08/01/21 20:23 Source: patient, RN notes reviewed Mode of arrival: wheelchair Limitations: no limitations - History of Present Illness Initial comments: Patient is a pleasant 75-year-old female presenting to the emergency department with concerns for palpitations. Symptoms have been present for about one year. Patient feels her heart racing at times. Patient states when it improves she gets lightheaded. Patient states this is happening multiple times per day. Patient seems like it has been somewhat worse with the past few days. Patient's blood pressure has been labile. Patient did have somewhat high blood pressure however recently has had blood pressures with systolic as low as 9120. Patient did recently see her sales representative with changes in her medication. Patient does have some discomfort of her upper back that has been present for several days, mild and feels like an ache. No chest discomfort. - Related Data Home Medications Medication Instructions Recorded Confirmed Lactulose 10 gm PO DAILY PRN 02/22/20 08/01/21 Aspirin EC [Ecotrin Low Dose] 81 mg PO DAILY 10/26/20 08/01/21 Metoprolol Succinate (ER) [Toprol 25 mg PO DAILY 08/01/21 08/01/21 Xl] amLODIPine [Norvasc] 5 mg PO DAILY 08/01/21 08/01/21 lisinopriL 30 mg PO HS 08/01/21 08/01/21 Allergies Allergy/AdvReac Type Severity Reaction Status Date / Time No Known Allergies Allergy Verified 08/01/21 21:26 Review of Systems ROS Statement: Those systems with pertinent positive or pertinent negative responses have been documented in the HPI. ROS Other: All systems not noted in ROS Statement are negative. Constitutional: Denies: fever, chills Eyes: Denies: eye pain ENT: Denies: ear pain Respiratory: Denies: cough, dyspnea Cardiovascular: Denies: chest pain Endocrine: Denies: fatigue Gastrointestinal: Denies: abdominal pain Genitourinary: Denies: dysuria Musculoskeletal: Reports: as per HPI Skin: Denies: rash Neurological: Denies: weakness Past Medical History Past Medical History: Hypertension Additional Past Medical History / Comment(s): HX HEMMOROIDS History of Any Multi-Drug Resistant Organisms: None Reported Past Surgical History: Appendectomy, Hysterectomy Additional Past Surgical History / Comment(s): HEMMOROIDECTOMY Past Anesthesia/Blood Transfusion Reactions: No Reported Reaction Past Psychological History: No Psychological Hx Reported Smoking Status: Never smoker Past Alcohol Use History: None Reported Past Drug Use History: None Reported - Past Family History Mother Family Medical History: No Reported History General Exam Limitations: no limitations General appearance: alert, in no apparent distress Head exam: Present: normocephalic Eye exam: Present: normal appearance Neck exam: Present: normal inspection Respiratory exam: Present: normal lung sounds bilaterally. Absent: chest wall tenderness Cardiovascular Exam: Present: regular rate, normal rhythm Expanded Peripheral pulses: 2+: Radial (R), Radial (L), Posterior Tibialis (R), Posterior Tibialis (L) GI/Abdominal exam: Present: soft. Absent: tenderness Extremities exam: Present: normal inspection. Absent: pedal edema, calf tenderness Back exam: Present: normal inspection. Absent: tenderness Neurological exam: Present: alert Psychiatric exam: Present: normal affect, normal mood Skin exam: Present: normal color Course Vital Signs 08/01/21 08/01/21 08/01/21 16:05 20:24 20:25 Temperature 98.1 F Pulse Rate 111 H 123 H Pulse Rate [ 120 H Plate Hanger ] Respiratory 18 20 Rate Blood Pressure 101/70 140/79 O2 Sat by Pulse 99 98 Oximetry 08/01/21 22:09 Temperature Pulse Rate 123 H Pulse Rate [ Plate Hanger ] Respiratory 18 Rate Blood Pressure 142/89 O2 Sat by Pulse 95 Oximetry - Reevaluation(s) Reevaluation #1: 08/01/21 23:20 EKG #2 shows sinus arrhythmia with tachycardia converting to sinus rhythm. Overall rate 81. MO 240. QRS 84. QT 366. QTc 425. Normal axis. Normal QRS. No acute ST change. EKG #3 shows no sinus rhythm rate 74. MO 186. QRS 84. QT 374. QTC 4:15. [place]. Normal QRS. No acute ST change. EKG Findings - EKG Comments: EKG Findings:: Sinus tachycardia with rate of 110. For screening AV block MO 220. QRS 82. QT 320. QTc 433. Normal axis. Normal QRS. No acute ST change. Medical Decision Making - Medical Decision Making Patient reevaluated and resting comfortably in bed. Normal sinus rhythm. Patient positive for cold. Patient is a candidate for monoclonal antibodies and will receive this prior to discharge. Patient updated on results and need for follow-up, including with cardiology. - Lab Data Result diagrams: 08/01/21 19:48 08/01/21 19:48 Lab Results 08/01/21 08/01/21 08/01/21 Range/Units 13:00 13:00 19:48 WBC 6.3 3.0 L (3.8-10.6) k/uL RBC 3.05 L 4.85 (3.80-5.40) m/uL Hgb 9.3 L 14.1 D (11.4-16.0) gm/dL Hct 27.8 L 41.1 (34.0-46.0) % MCV 91.2 84.8 D (80.0-100.0) fL MCH 30.3 29.1 (25.0-35.0) pg MCHC 33.3 34.3 (31.0-37.0) g/dL RDW 14.3 13.3 (11.5-15.5) % Plt Count 143 L 177 (150-450) k/uL MPV 10.0 7.8 Neutrophils % 79 59 % Lymphocytes % 6 32 % Monocytes % 8 7 % Eosinophils % 2 1 % Basophils % 1 1 % Neutrophils # 5.0 1.8 (1.3-7.7) k/uL Lymphocytes # 0.4 L 0.9 L (1.0-4.8) k/uL Monocytes # 0.5 0.2 (0-1.0) k/uL Eosinophils # 0.1 0.0 (0-0.7) k/uL Basophils # 0.0 0.0 (0-0.2) k/uL D-Dimer (<0.60) mg/L FEU Sodium 138 (137-145) mmol/L Potassium 4.6 (3.5-5.1) mmol/L Chloride 104 (98-107) mmol/L Carbon Dioxide 24 (22-30) mmol/L Anion Gap 10 mmol/L BUN 57 H (7-17) mg/dL Creatinine 1.61 H (0.52-1.04) mg/dL Est GFR (CKD-EPI)AfAm 36 (>60 ml/min/1.73 sqM) Est GFR (CKD-EPI)NonAf 31 (>60 ml/min/1.73 sqM) Glucose 104 H (74-99) mg/dL Calcium 8.8 (8.4-10.2) mg/dL Magnesium (1.6-2.3) mg/dL Total Bilirubin 0.4 (0.2-1.3) mg/dL AST 32 (14-36) U/L ALT 19 (4-34) U/L Alkaline Phosphatase 116 (38-126) U/L Troponin I (0.000-0.034) ng/mL Total Protein 6.8 (6.3-8.2) g/dL Albumin 3.6 (3.5-5.0) g/dL TSH 1.850 (0.465-4.680) mIU/L Free T4 1.64 (0.78-2.19) ng/dL Urine Color Urine Appearance (Clear) Urine pH (5.0-8.0) Ur Specific [place] (1.001-1.035) Urine Protein (Negative) Urine Glucose (UA) (Negative) Urine Ketones (Negative) Urine Blood (Negative) Urine Nitrite (Negative) Urine Bilirubin (Negative) Urine Urobilinogen (<2.0) mg/dL Ur Leukocyte Esterase (Negative) Urine RBC (0-5) /hpf Urine WBC (0-5) /hpf Ur Squamous Epith Cells (0-4) /hpf Urine Bacteria (None) /hpf Urine Mucus (None) /hpf Coronavirus (PCR) (Not Detectd) 08/01/21 08/01/21 08/01/21 Range/Units 19:48 19:48 19:48 WBC (3.8-10.6) k/uL RBC (3.80-5.40) m/uL Hgb (11.4-16.0) gm/dL Hct (34.0-46.0) % MCV (80.0-100.0) fL MCH (25.0-35.0) pg MCHC (31.0-37.0) g/dL RDW (11.5-15.5) % Plt Count (150-450) k/uL MPV Neutrophils % % Lymphocytes % % Monocytes % % Eosinophils % % Basophils % % Neutrophils # (1.3-7.7) k/uL Lymphocytes # (1.0-4.8) k/uL Monocytes # (0-1.0) k/uL Eosinophils # (0-0.7) k/uL Basophils # (0-0.2) k/uL D-Dimer (<0.60) mg/L FEU Sodium 138 (137-145) mmol/L Potassium 3.5 (3.5-5.1) mmol/L Chloride 103 (98-107) mmol/L Carbon Dioxide 27 (22-30) mmol/L Anion Gap 8 mmol/L BUN 14 (7-17) mg/dL Creatinine 0.76 (0.52-1.04) mg/dL Est GFR (CKD-EPI)AfAm 90 (>60 ml/min/1.73 sqM) Est GFR (CKD-EPI)NonAf 78 (>60 ml/min/1.73 sqM) Glucose 105 H (74-99) mg/dL Calcium 8.5 (8.4-10.2) mg/dL Magnesium 2.0 (1.6-2.3) mg/dL Total Bilirubin 0.4 (0.2-1.3) mg/dL AST 39 H (14-36) U/L ALT 32 (4-34) U/L Alkaline Phosphatase 83 (38-126) U/L Troponin I <0.012 (0.000-0.034) ng/mL Total Protein 6.7 (6.3-8.2) g/dL Albumin 3.9 (3.5-5.0) g/dL TSH 1.790 (0.465-4.680) mIU/L Free T4 (0.78-2.19) ng/dL Urine Color Urine Appearance (Clear) Urine pH (5.0-8.0) Ur Specific [place] (1.001-1.035) Urine Protein (Negative) Urine Glucose (UA) (Negative) Urine Ketones (Negative) Urine Blood (Negative) Urine Nitrite (Negative) Urine Bilirubin (Negative) Urine Urobilinogen (<2.0) mg/dL Ur Leukocyte Esterase (Negative) Urine RBC (0-5) /hpf Urine WBC (0-5) /hpf Ur Squamous Epith Cells (0-4) /hpf Urine Bacteria (None) /hpf Urine Mucus (None) /hpf Coronavirus (PCR) (Not Detectd) 08/01/21 08/01/21 08/01/21 Range/Units 21:16 22:09 22:11 WBC (3.8-10.6) k/uL RBC (3.80-5.40) m/uL Hgb (11.4-16.0) gm/dL Hct (34.0-46.0) % MCV (80.0-100.0) fL MCH (25.0-35.0) pg MCHC (31.0-37.0) g/dL RDW (11.5-15.5) % Plt Count (150-450) k/uL MPV Neutrophils % % Lymphocytes % % Monocytes % % Eosinophils % % Basophils % % Neutrophils # (1.3-7.7) k/uL Lymphocytes # (1.0-4.8) k/uL Monocytes # (0-1.0) k/uL Eosinophils # (0-0.7) k/uL Basophils # (0-0.2) k/uL D-Dimer 0.64 H (<0.60) mg/L FEU Sodium (137-145) mmol/L Potassium (3.5-5.1) mmol/L Chloride (98-107) mmol/L Carbon Dioxide (22-30) mmol/L Anion Gap mmol/L BUN (7-17) mg/dL Creatinine (0.52-1.04) mg/dL Est GFR (CKD-EPI)AfAm (>60 ml/min/1.73 sqM) Est GFR (CKD-EPI)NonAf (>60 ml/min/1.73 sqM) Glucose (74-99) mg/dL Calcium (8.4-10.2) mg/dL Magnesium (1.6-2.3) mg/dL Total Bilirubin (0.2-1.3) mg/dL AST (14-36) U/L ALT (4-34) U/L Alkaline Phosphatase (38-126) U/L Troponin I (0.000-0.034) ng/mL Total Protein (6.3-8.2) g/dL Albumin (3.5-5.0) g/dL TSH (0.465-4.680) mIU/L Free T4 (0.78-2.19) ng/dL Urine Color Yellow Urine Appearance Clear (Clear) Urine pH 5.5 (5.0-8.0) Ur Specific [place] 1.020 (1.001-1.035) Urine Protein Trace H (Negative) Urine Glucose (UA) Negative (Negative) Urine Ketones Negative (Negative) Urine Blood Trace H (Negative) Urine Nitrite Negative (Negative) Urine Bilirubin Negative (Negative) Urine Urobilinogen 2.0 (<2.0) mg/dL Ur Leukocyte Esterase Large H (Negative) Urine RBC 2 (0-5) /hpf Urine WBC 12 H (0-5) /hpf Ur Squamous Epith Cells 1 (0-4) /hpf Urine Bacteria Rare H (None) /hpf Urine Mucus Few H (None) /hpf Coronavirus (PCR) Detected A (Not Detectd) - Radiology Data Radiology results: image reviewed (Chest x-ray shows no acute process) Disposition Clinical Impression: Palpitations, COVID-19 Disposition: HOME SELF-CARE Instructions (If sedation given, give patient instructions): Atrial Tachycardia (ED), Sick Sinus Syndrome (ED), Coronavirus Disease 2019 (COVID-19) Additional Instructions: Please follow-up with primary care physician in the next couple days for recheck. Please also follow-up to sales representative. Licensed Bondsman review EKGs. Please continue to quarantined for the next week per cc guidelines. [id number] vitamin C, vitamin D, and zinc. Melatonin at bedtime may help. Tylenol as needed Is patient prescribed a controlled substance at d/c from ED?: No Referrals: Scot Florian MD [Primary Care Provider] - 1-2 days Time of Disposition: 23:22
[2021-08-01 21:30] LABS: Appearance,Urine Clear (Clear); Bacteria,Urine Rare /hpf; Bilirubin,Urine Negative (Negative); Blood,Urine Trace (Negative); Color,Urine Yellow; Glucose,Urine (UA) Negative (Negative); Ketones,Urine Negative (Negative); Leukocyte Esterase,Urine Large (Negative); Mucus,Urine Few /hpf; Nitrite,Urine Negative (Negative); PH, Urine 5.5 (5.0-8.0); Protein,Urine Trace (Negative); RBC,Urine 2 /hpf (0-5); Squamous Epithelial Cell,Urine 1 /hpf (0-4); WBC,Urine 12 /hpf (0-5)
--- NOTE | 2021-08-01 21:48 | XR ---
EXAMINATION TYPE: XR chest 2V DATE OF EXAM: 08/01/2021 COMPARISON: 10/26/2020 HISTORY: Tachycardia TECHNIQUE: FINDINGS: There is no heart failure nor confluent pneumonic infiltrate. Costophrenic angles are clear . There are chest leads. Bony thorax is intact. IMPRESSION: No active cardiac pulmonary disease. No change.
[2021-08-01 22:36] LABS: Basophils % (A) 1 %; Eosinophils # (A) 0.1 k/uL (0-0.7); Eosinophils % (A) 2 %; HCT 27.8 % (34.0-46.0); HGB 9.3 gm/dL (11.4-16.0); Lymphocytes # (A) 0.4 k/uL (1.0-4.8); Lymphocytes % (A) 6 %; MCH 30.3 pg (25.0-35.0); MCHC 33.3 g/dL (31.0-37.0); MCV 91.2 fL (80.0-100.0); Monocytes # (A) 0.5 k/uL (0-1.0); Monocytes % (A) 8 %; Neutrophils % (A) 79 %; Platelet Count 143 k/uL (150-450); RBC 3.05 m/uL (3.80-5.40); RDW 14.3 % (11.5-15.5); WBC 6.3 k/uL (3.8-10.6)
[2021-08-01 22:40] LABS: ALT 19 U/L (4-34); AST 32 U/L (14-36); African American GFR (CKD) 36 (>60 ml/min/1.73 sqM); Albumin 3.6 g/dL (3.5-5.0); Alkaline Phosphatase 116 U/L (38-126); Anion Gap 10 mmol/L; Blood Urea Nitrogen 57 mg/dL (7-17); Calcium 8.8 mg/dL (8.4-10.2); Carbon Dioxide 24 mmol/L (22-30); Chloride 104 mmol/L (98-107); Glucose 104 mg/dL (74-99); Non-African American GFR(CKD) 31 (>60 ml/min/1.73 sqM); Potassium 4.6 mmol/L (3.5-5.1); Sodium 138 mmol/L (137-145); Total Bilirubin 0.4 mg/dL (0.2-1.3); Total Protein 6.8 g/dL (6.3-8.2)
[2021-08-01 22:56] LABS: T4, Free (Free Thyroxine) 1.64 ng/dL (0.78-2.19)
[2021-08-01] MEDS ORDERED: SOTROVIMAB (EUA) 500 MG in SODIUM CHLORIDE 0.9% 100 ML IVPB ONE (23:45)
[2021-08-01] MEDS ORDERED: SODIUM CHLORIDE 0.9% 50 ML IVPB ONE (23:45)
[2021-08-02] MEDS ORDERED: MORPHINE SULFATE 4 MG/ML SYRINGE IV PRN (01:19)
[2021-08-02] MEDS ORDERED: LORazepam 2 MG/ML INJ IV PRN (01:19)
[2021-08-02] MEDS ORDERED: NALOXONE 0.4 MG/ML 1 ML VIAL IV PRN (01:19)
[2021-08-02] MEDS ORDERED: ONDANSETRON 4 MG/2 ML VIAL IVP PRN (01:19)
--- NOTE | 2021-08-02 01:22 | ED ---
Medical Decision Making - Medical Decision Making This is a 75-year-old female DF for evaluation patient continues to feel weak and dizzy here in the emergency department despite treatment. Patient does not fill comfortable at this time currently with discharge home. Patient be admitted for observation for coronavirus and abnormal heart rate - Lab Data Result diagrams: 08/01/21 19:48 08/01/21 19:48 Lab Results 08/01/21 08/01/21 08/01/21 Range/Units 13:00 13:00 19:48 WBC 6.3 3.0 L (3.8-10.6) k/uL RBC 3.05 L 4.85 (3.80-5.40) m/uL Hgb 9.3 L 14.1 D (11.4-16.0) gm/dL Hct 27.8 L 41.1 (34.0-46.0) % MCV 91.2 84.8 D (80.0-100.0) fL MCH 30.3 29.1 (25.0-35.0) pg MCHC 33.3 34.3 (31.0-37.0) g/dL RDW 14.3 13.3 (11.5-15.5) % Plt Count 143 L 177 (150-450) k/uL MPV 10.0 7.8 Neutrophils % 79 59 % Lymphocytes % 6 32 % Monocytes % 8 7 % Eosinophils % 2 1 % Basophils % 1 1 % Neutrophils # 5.0 1.8 (1.3-7.7) k/uL Lymphocytes # 0.4 L 0.9 L (1.0-4.8) k/uL Monocytes # 0.5 0.2 (0-1.0) k/uL Eosinophils # 0.1 0.0 (0-0.7) k/uL Basophils # 0.0 0.0 (0-0.2) k/uL D-Dimer (<0.60) mg/L FEU Sodium 138 (137-145) mmol/L Potassium 4.6 (3.5-5.1) mmol/L Chloride 104 (98-107) mmol/L Carbon Dioxide 24 (22-30) mmol/L Anion Gap 10 mmol/L BUN 57 H (7-17) mg/dL Creatinine 1.61 H (0.52-1.04) mg/dL Est GFR (CKD-EPI)AfAm 36 (>60 ml/min/1.73 sqM) Est GFR (CKD-EPI)NonAf 31 (>60 ml/min/1.73 sqM) Glucose 104 H (74-99) mg/dL Calcium 8.8 (8.4-10.2) mg/dL Magnesium (1.6-2.3) mg/dL Total Bilirubin 0.4 (0.2-1.3) mg/dL AST 32 (14-36) U/L ALT 19 (4-34) U/L Alkaline Phosphatase 116 (38-126) U/L Troponin I (0.000-0.034) ng/mL Total Protein 6.8 (6.3-8.2) g/dL Albumin 3.6 (3.5-5.0) g/dL TSH 1.850 (0.465-4.680) mIU/L Free T4 1.64 (0.78-2.19) ng/dL Urine Color Urine Appearance (Clear) Urine pH (5.0-8.0) Ur Specific [place] (1.001-1.035) Urine Protein (Negative) Urine Glucose (UA) (Negative) Urine Ketones (Negative) Urine Blood (Negative) Urine Nitrite (Negative) Urine Bilirubin (Negative) Urine Urobilinogen (<2.0) mg/dL Ur Leukocyte Esterase (Negative) Urine RBC (0-5) /hpf Urine WBC (0-5) /hpf Ur Squamous Epith Cells (0-4) /hpf Urine Bacteria (None) /hpf Urine Mucus (None) /hpf Coronavirus (PCR) (Not Detectd) 08/01/21 08/01/21 08/01/21 Range/Units 19:48 19:48 19:48 WBC (3.8-10.6) k/uL RBC (3.80-5.40) m/uL Hgb (11.4-16.0) gm/dL Hct (34.0-46.0) % MCV (80.0-100.0) fL MCH (25.0-35.0) pg MCHC (31.0-37.0) g/dL RDW (11.5-15.5) % Plt Count (150-450) k/uL MPV Neutrophils % % Lymphocytes % % Monocytes % % Eosinophils % % Basophils % % Neutrophils # (1.3-7.7) k/uL Lymphocytes # (1.0-4.8) k/uL Monocytes # (0-1.0) k/uL Eosinophils # (0-0.7) k/uL Basophils # (0-0.2) k/uL D-Dimer (<0.60) mg/L FEU Sodium 138 (137-145) mmol/L Potassium 3.5 (3.5-5.1) mmol/L Chloride 103 (98-107) mmol/L Carbon Dioxide 27 (22-30) mmol/L Anion Gap 8 mmol/L BUN 14 (7-17) mg/dL Creatinine 0.76 (0.52-1.04) mg/dL Est GFR (CKD-EPI)AfAm 90 (>60 ml/min/1.73 sqM) Est GFR (CKD-EPI)NonAf 78 (>60 ml/min/1.73 sqM) Glucose 105 H (74-99) mg/dL Calcium 8.5 (8.4-10.2) mg/dL Magnesium 2.0 (1.6-2.3) mg/dL Total Bilirubin 0.4 (0.2-1.3) mg/dL AST 39 H (14-36) U/L ALT 32 (4-34) U/L Alkaline Phosphatase 83 (38-126) U/L Troponin I <0.012 (0.000-0.034) ng/mL Total Protein 6.7 (6.3-8.2) g/dL Albumin 3.9 (3.5-5.0) g/dL TSH 1.790 (0.465-4.680) mIU/L Free T4 (0.78-2.19) ng/dL Urine Color Urine Appearance (Clear) Urine pH (5.0-8.0) Ur Specific [place] (1.001-1.035) Urine Protein (Negative) Urine Glucose (UA) (Negative) Urine Ketones (Negative) Urine Blood (Negative) Urine Nitrite (Negative) Urine Bilirubin (Negative) Urine Urobilinogen (<2.0) mg/dL Ur Leukocyte Esterase (Negative) Urine RBC (0-5) /hpf Urine WBC (0-5) /hpf Ur Squamous Epith Cells (0-4) /hpf Urine Bacteria (None) /hpf Urine Mucus (None) /hpf Coronavirus (PCR) (Not Detectd) 08/01/21 08/01/21 08/01/21 Range/Units 21:16 22:09 22:11 WBC (3.8-10.6) k/uL RBC (3.80-5.40) m/uL Hgb (11.4-16.0) gm/dL Hct (34.0-46.0) % MCV (80.0-100.0) fL MCH (25.0-35.0) pg MCHC (31.0-37.0) g/dL RDW (11.5-15.5) % Plt Count (150-450) k/uL MPV Neutrophils % % Lymphocytes % % Monocytes % % Eosinophils % % Basophils % % Neutrophils # (1.3-7.7) k/uL Lymphocytes # (1.0-4.8) k/uL Monocytes # (0-1.0) k/uL Eosinophils # (0-0.7) k/uL Basophils # (0-0.2) k/uL D-Dimer 0.64 H (<0.60) mg/L FEU Sodium (137-145) mmol/L Potassium (3.5-5.1) mmol/L Chloride (98-107) mmol/L Carbon Dioxide (22-30) mmol/L Anion Gap mmol/L BUN (7-17) mg/dL Creatinine (0.52-1.04) mg/dL Est GFR (CKD-EPI)AfAm (>60 ml/min/1.73 sqM) Est GFR (CKD-EPI)NonAf (>60 ml/min/1.73 sqM) Glucose (74-99) mg/dL Calcium (8.4-10.2) mg/dL Magnesium (1.6-2.3) mg/dL Total Bilirubin (0.2-1.3) mg/dL AST (14-36) U/L ALT (4-34) U/L Alkaline Phosphatase (38-126) U/L Troponin I (0.000-0.034) ng/mL Total Protein (6.3-8.2) g/dL Albumin (3.5-5.0) g/dL TSH (0.465-4.680) mIU/L Free T4 (0.78-2.19) ng/dL Urine Color Yellow Urine Appearance Clear (Clear) Urine pH 5.5 (5.0-8.0) Ur Specific [place] 1.020 (1.001-1.035) Urine Protein Trace H (Negative) Urine Glucose (UA) Negative (Negative) Urine Ketones Negative (Negative) Urine Blood Trace H (Negative) Urine Nitrite Negative (Negative) Urine Bilirubin Negative (Negative) Urine Urobilinogen 2.0 (<2.0) mg/dL Ur Leukocyte Esterase Large H (Negative) Urine RBC 2 (0-5) /hpf Urine WBC 12 H (0-5) /hpf Ur Squamous Epith Cells 1 (0-4) /hpf Urine Bacteria Rare H (None) /hpf Urine Mucus Few H (None) /hpf Coronavirus (PCR) Detected A (Not Detectd) Disposition Clinical Impression: Palpitations, COVID-19, Chest pain, Lightheadedness, Nausea & vomiting Disposition: ADMITTED IP TO THIS HOSP Condition: Good Instructions (If sedation given, give patient instructions): Coronavirus Disease 2019 (COVID-19), Atrial Tachycardia (ED), Sick Sinus Syndrome (ED) Additional Instructions: Please follow-up with primary care physician in the next couple days for recheck. 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 Medicare Contact Specialist review EKGs. Pl ease continue to quarantined for the next week per cc guidelines. [id number] vitamin C, vitamin D, and zinc. Melatonin at bedtime may help. Tylenol as needed Is patient prescribed a controlled substance at d/c from ED?: No Referrals: Scot Florian MD [Primary Care Provider] - 1-2 days
[2021-08-02] MEDS: SODIUM CHLORIDE 0.9% 1,000 ML IV SCH ×2 (03:14→13:17)
[2021-08-02 09:34] LABS: Chol/HDL Ratio 2.12 Ratio; LDL Cholesterol,Calculated 53.9 mg/dL (0.0-131.0); VLDL Calculation 14.92 mg/dL (5.00-40.00)
[2021-08-02] MEDS: ASPIRIN 81 MG PO SCH (10:06)
[2021-08-02] MEDS: METOPROLOL SUCCINATE (ER) 25 MG TAB.ER.24H PO SCH (10:06)
[2021-08-02] MEDS: PANTOPRAZOLE 40 MG/10 ML VIAL IV SCH (10:07)
[2021-08-02] MEDS: amLODIPine 5 MG TAB PO SCH (10:07)
--- NOTE | 2021-08-02 11:47 | P.HPIM ---
History of Present Illness H&P Date: 08/02/21 History of Present Illness This is a 75-year-old female patient of Dr. Florian with past medical history of hypertension, peripheral vascular disease, carotid artery stenosis of 70% on the left. Patient had previous hospitalizations for near syncopal episode with episodes of SVT and uncontrolled hypertension. Patient complains of onset of dizziness last Wednesday. She is denies feeling congested or shortness of breath no sinus drainage. She has noted to have a cough and she states she has occasional headache. She denies any known over 19 contacts recently but her granddaughter was sick a few weeks ago. Patient apparently presented for concerns for palpitations in her heart racing that were happening multiple times per day and worsening. Patient was found to be afebrile, heart rate 111, blood pressure 101/70 and pulse ox 99%. Repeat blood pressure 140/79 with heart rate in the 120s. EKG was sinus arrhythmia/sinus tachycardia with first-degree AV block, followed by normal sinus rhythm, with no acute ST changes. WBC 3.0 otherwise CBC unremarkable. Electrolytes and renal function normal. Blood sugar 105. TSH 1.850 and free T4 1 0.64. Magnesium 2.0, potassium 3.5. Troponin negative. D-dimer 0.64. Urinalysis was nitrite negative, leukoesterase large, WBC 12. Coronavirus PCR detected. Chest x-ray reveals no active cardiac pulmonary disease. Patient apparently was prepared for discharge but was feeling weak and dizzy and did not feel comfortab le going home and patient was admitted to the observation status. She is currently being seen in the emergency center and consult in place with cardiology and pulmonary medicine. Regarding her blood pressure medications, patient states she takes lisinopril 30 mg daily and recently stopped taking a water pill due to low blood pressure. Echocardiogram done 10/28/2020 revealed EF of 55-60%, severe concentric left ventricle hypertrophy, mild aortic valve sclerosis, trace mitral regurgitation, mild tricuspid regurgitation, borderline pulmonary artery hypertension, RVSP 33.77 mmHg. Review of Systems Constitutional: No fever, no chills, no night sweats. No weight change. No weakness, fatigue or lethargy. No daytime sleepiness. EENT: No headache. No blurred vision or double vision, no loss of vision. No loss of Hearing, no ringing in the ears, no dizziness. No nasal drainage or congestion. No epistaxis. No sore throat. Lungs: No shortness of breath, noted cough, no sputum production. No wheezing. Cardiovascular: No chest pain, no lower extremity edema. Reports palpitations. No paroxysmal nocturnal dyspnea. No orthopnea. Reports lightheadedness or diz ziness. Reports near syncopal episodes. Abdominal: No abdominal pain. No nausea, vomiting. No diarrhea. No constipation. No bloody or tarry stools.. No loss of appetite. Genitourinary: No dysuria, increased frequency, urgency. No urinary retention. Musculoskeletal: No myalgias. No muscle weakness, no gait dysfunction, no frequent falls. No back pain. No neck pain. Integumentary: No wounds, no lesions. No rash or pruritus. No unusual bruising. No change in hair or nails. Neurologic: No aphasia. No facial droop. No change in mentation. No head injury. No headache. No paralysis. No paresthesia. Psychiatric: No depression. No anxiety. No mood swings. Endocrine: No abnormal blood sugars. No weight change. Social history Patient is a lifelong nonsmoker, no alcohol marijuana or illicit drug use. She is a and lives alone in a fifth wheel on her son's property. Family history Mother is alive at age 98 with history of coronary artery disease. Father at age 92 with history of coronary artery disease. Patient has total of 3 brothers. One from a motor vehicle accident at age 18. One is alive with history of IA and CABG. One has history of passing out episodes with unclear etiology. Patient has one sister with history of colon cancer. Patient has 5 children with no major medical problems. Physical Examination Gen: This is 75-year-old female patient resting on ER stretcher and appears comfortable at rest. Noted frequent coughing. HEENT: Head is atraumatic, normocephalic. Pupils equal, round. Sclerae is anicteric. NECK: Supple. No JVD. No lymphadenopathy. No thyromegaly. LUNGS: Clear to auscultation. No wheezes or rhonchi. No intercostal retractions . HEART: Regular rate and rhythm. No murmur. ABDOMEN: Soft. Bowel sounds are present. No masses. No tenderness. EXTREMITIES: No pedal edema. No calf tenderness. Dorsalis pedis palpable bilaterally. NEUROLOGICAL: Patient is awake, alert and oriented x3. Cranial nerves 2 through 12 are grossly intact. Assessment and Plan 1. Lightheadedness and palpitations most likely secondary to arrhythmia with noted sinus arrhythmia, sinus tachycardia, first-degree block. Cardiology consult, continue cardiac monitoring, orthostatic vital signs, echocardiogram. Cardiology consult appreciated. Anginal monitor overnight and probable discharge tomorrow. 2. Hypertension, uncontrolled. Blood pressure is currently on the soft side. We will resume amlodipine 5 mg at bedtime and lisinopril 30 mg daily with parameters. 3. COVID-19 infection. Patient started on vitamin supplements, dexamethasone and Lovenox, pulmonary consult. 4. Carotid artery disease with 70% stenosis on the left carotid artery. Unclear why patient is not on Lipitor. 5. Peripheral vascular disease, stable 6. DVT prophylaxis. Lovenox subcu. 7. GI prophylaxis. Protonix. Patient placed as an observation status. Discharge plan: Return home Impression and plan of care have been directed as dictated by the signing physician. Elif Maharaj nurse practitioner acting as scribe for signing physician. Past Medical History Past Medical History: Hypertension Additional Past Medical History / Comment(s): HX HEMMOROIDS History of Any Multi-Drug Resistant Organisms: None Reported Past Surgical History: Appendectomy, Hysterectomy Additional Past Surgical History / Comment(s): HEMMOROIDECTOMY Past Anesthesia/Blood Transfusion Reactions: No Reported Reaction Past Psychological History: No Psychological Hx Reported Smoking Status: Never smoker Past Alcohol Use History: None Reported Past Drug Use History: None Reported - Past Family History Mother Family Medical History: No Reported History Medications and Allergies Home Medications Medication Instructions Recorded Confirmed Type Lactulose 10 gm PO DAILY PRN 02/22/20 08/01/21 History Aspirin EC [Ecotrin Low Dose] 81 mg PO DAILY 10/26/20 08/01/21 History Metoprolol Succinate (ER) [Toprol 25 mg PO DAILY 08/01/21 08/01/21 History Xl] amLODIPine [Norvasc] 5 mg PO DAILY 08/01/21 08/01/21 History lisinopriL 30 mg PO HS 08/01/21 08/01/21 History Allergies Allergy/AdvReac Type Severity Reaction Status Date / Time No Known Allergies Allergy Verified 08/01/21 21:26 Physical Exam Vitals: Vital Signs Temp Pulse Pulse Resp BP Pulse Ox 08/02/21 06:13 82 16 124/61 96 08/02/21 03:17 92 17 154/87 97 08/02/21 01:55 18 08/01/21 23:33 75 18 96 08/01/21 22:09 123 H 18 142/89 95 08/01/21 20:25 120 H 08/01/21 20:24 123 H 20 140/79 98 08/01/21 16:05 98.1 F 111 H 18 101/70 99 Intake and Output 08/01/21 08/02/21 08/02/21 22:59 06:59 14:59 Other: Weight 101.605 kg Results CBC & Chem 7: 08/01/21 19:48 08/01/21 19:48 Labs: Abnormal Lab Results - Last 24 Hours (Table) 08/01/21 08/01/21 08/01/21 Range/Units 13:00 13:00 19:48 WBC 3.0 L (3.8-10.6) k/uL RBC 3.05 L (3.80-5.40) m/uL Hgb 9.3 L (11.4-16.0) gm/dL Hct 27.8 L (34.0-46.0) % Plt Count 143 L (150-450) k/uL Lymphocytes # 0.4 L 0.9 L (1.0-4.8) k/uL D-Dimer (<0.60) mg/L FEU BUN 57 H (7-17) mg/dL Creatinine 1.61 H (0.52-1.04) mg/dL Glucose 104 H (74-99) mg/dL AST (14-36) U/L Urine Protein (Negative) Urine Blood (Negative) Ur Leukocyte Esterase (Negative) Urine WBC (0-5) /hpf Urine Bacteria (None) /hpf Urine Mucus (None) /hpf Coronavirus (PCR) (Not Detectd) 08/01/21 08/01/21 08/01/21 Range/Units 19:48 21:16 22:09 WBC (3.8-10.6) k/uL RBC (3.80-5.40) m/uL Hgb (11.4-16.0) gm/dL Hct (34.0-46.0) % Plt Count (150-450) k/uL Lymphocytes # (1.0-4.8) k/uL D-Dimer (<0.60) mg/L FEU BUN (7-17) mg/dL Creatinine (0.52-1.04) mg/dL Glucose 105 H (74-99) mg/dL AST 39 H (14-36) U/L Urine Protein Trace H (Negative) Urine Blood Trace H (Negative) Ur Leukocyte Esterase Large H (Negative) Urine WBC 12 H (0-5) /hpf Urine Bacteria Rare H (None) /hpf Urine Mucus Few H (None) /hpf Coronavirus (PCR) Detected A (Not Detectd) 08/01/21 Range/Units 22:11 WBC (3.8-10.6) k/uL RBC (3.80-5.40) m/uL Hgb (11.4-16.0) gm/dL Hct (34.0-46.0) % Plt Count (150-450) k/uL Lymphocytes # (1.0-4.8) k/uL D-Dimer 0.64 H (<0.60) mg/L FEU BUN (7-17) mg/dL Creatinine (0.52-1.04) mg/dL Glucose (74-99) mg/dL AST (14-36) U/L Urine Protein (Negative) Urine Blood (Negative) Ur Leukocyte Esterase (Negative) Urine WBC (0-5) /hpf Urine Bacteria (None) /hpf Urine Mucus (None) /hpf Coronavirus (PCR) (Not Detectd) Microbiology - Last 24 Hours (Table) 08/01/21 21:16 Urine Culture - Preliminary Urine,Voided
[2021-08-02] MEDS: dexAMETHasone 2 MG TAB PO SCH (13:17)
[2021-08-02] MEDS: ENOXAPARIN 40 MG/0.4 ML SYRINGE SQ SCH (13:17)
--- NOTE | 2021-08-02 14:19 | P.CRDCN ---
History of Present Illness Consult date: 08/02/21 Requesting physician: Scot Florian Reason for Consult (text): judith Chief complaint: palpitations History of present illness: A pleasant 75-year-old female patient who follows with Dr. Slater in the office. Has a history of palpitations in the past and has been worked up with no significant findings. Presented to the emergency department because she's been having more frequent rotations over the past week. She apparently also developed a cough a little under a week ago with some nasal congestion and drainage. Upon presentation in the emergency department EKG did show sinus mechanism with some episodes of sinus tachycardia and brief atrial runs. She was found to be positive for COVID-19 receive monoclonal antibodies and was going to be discharged home but felt quite weak and not well therefore she is being held for observation. We were consulted for bradycardia however there is been no evidence of bradycardia noted on EKGs or telemetry monitoring. Overall she's feeling a bit better. She continues to complain of fatigue and weakness. No significant complaints this morning of palpitations or dizziness. Appetite values show normal thyroid function. Running creatinine were elevated on admission at 57 and 1.61 which have normalized post hydration at 14 and 0.76. It'll signs have been stable. Past Medical History Past Medical History: Hypertension Additional Past Medical History / Comment(s): HX HEMMOROIDS History of Any Multi-Drug Resistant Organisms: None Reported Past Surgical History: Appendectomy, Hysterectomy, Orthopedic Surgery Additional Past Surgical History / Comment(s): left knee replacement HEMMOROIDECTOMY Past Anesthesia/Blood Transfusion Reactions: No Reported Reaction Past Psychological History: No Psychological Hx Reported Smoking Status: Never smoker Past Alcohol Use History: None Reported Past Drug Use History: None Reported - Past Family History Mother Family Medical History: Coronary Artery Disease (CAD) Additional Family Medical History / Comment(s): HAD STENTS Brother(s) Family Medical History: Myocardial Infarction ([place]) Additional Family Medical History / Comment(s): CABG Sister(s) Family Medical History: Cancer Additional Family Medical History / Comment(s): colon cancer Father Family Medical History: Coronary Artery Disease (CAD) Additional Family Medical History / Comment(s): HAD STENTS Medications and Allergies Home Medications Medication Instructions Recorded Confirmed Type Lactulose 10 gm PO DAILY PRN 02/22/20 08/01/21 History Aspirin EC [Ecotrin Low Dose] 81 mg PO DAILY 10/26/20 08/01/21 History Metoprolol Succinate (ER) [Toprol 25 mg PO DAILY 08/01/21 08/01/21 History Xl] amLODIPine [Norvasc] 5 mg PO DAILY 08/01/21 08/01/21 History lisinopriL 30 mg PO HS 08/01/21 08/01/21 History Allergies Allergy/AdvReac Type Severity Reaction Status Date / Time No Known Allergies Allergy Verified 08/02/21 13:05 Physical Exam Vitals: Vital Signs Temp Pulse Pulse Pulse Resp BP BP 08/02/21 13:51 98.6 F 133 H 17 114/64 08/02/21 10:41 99.8 F H 79 18 133/75 08/02/21 06:13 82 16 124/61 08/02/21 03:17 92 17 154/87 08/02/21 01:55 18 08/01/21 23:33 75 18 08/01/21 22:09 123 H 18 142/89 08/01/21 20:25 120 H 08/01/21 20:24 123 H 20 140/79 08/01/21 16:05 98.1 F 111 H 18 101/70 Pulse Ox 08/02/21 13:51 95 08/02/21 10:41 96 08/02/21 06:13 96 08/02/21 03:17 97 08/02/21 01:55 08/01/21 23:33 96 08/01/21 22:09 95 08/01/21 20:25 08/01/21 20:24 98 08/01/21 16:05 99 Intake and Output 08/01/21 08/02/21 08/02/21 22:59 06:59 14:59 Other: Weight 101.605 kg 101.605 kg PHYSICAL EXAMINATION: This is a 75-year-old female in no apparent distress at the time of my examination. The examination was deferred secondary to COVID-19 infection VITAL SIGNS: Blood pressure on 133/75, heart rate 79, respirations 18, temp 99.8 degrees Fahrenheit. Patient is 96% on room air. Results 08/01/21 19:48 08/01/21 19:48 Cardiac Enzymes 08/01/21 08/01/21 08/01/21 Range/Units 13:00 19:48 19:48 AST 32 39 H (14-36) U/L Troponin I <0.012 (0.000-0.034) ng/mL Lipids 08/01/21 Range/Units 13:00 Triglycerides 74.60 (0.00-149.00) mg/dL Cholesterol 130.00 (0.00-200.00) mg/dL HDL Cholesterol 61.20 H (40.00-60.00) mg/dL Cholesterol/HDL Ratio 2.12 Ratio CBC 08/01/21 08/01/21 Range/Units 13:00 19:48 WBC 6.3 3.0 L (3.8-10.6) k/uL RBC 3.05 L 4.85 (3.80-5.40) m/uL Hgb 9.3 L 14.1 D (11.4-16.0) gm/dL Hct 27.8 L 41.1 (34.0-46.0) % Plt Count 143 L 177 (150-450) k/uL Comprehensive Metabolic Panel 08/01/21 08/01/21 Range/Units 13:00 19:48 Sodium 138 138 (137-145) mmol/L Potassium 4.6 3.5 (3.5-5.1) mmol/L Chloride 104 103 (98-107) mmol/L Carbon Dioxide 24 27 (22-30) mmol/L BUN 57 H 14 (7-17) mg/dL Creatinine 1.61 H 0.76 (0.52-1.04) mg/dL Glucose 104 H 105 H (74-99) mg/dL Calcium 8.8 8.5 (8.4-10.2) mg/dL AST 32 39 H (14-36) U/L ALT 19 32 (4-34) U/L Alkaline Phosphatase 116 83 (38-126) U/L Total Protein 6.8 6.7 (6.3-8.2) g/dL Albumin 3.6 3.9 (3.5-5.0) g/dL Current Medications Generic Name Dose Route Start Last Admin Trade Name Freq PRN Reason Stop Dose Admin Amlodipine Besylate 5 mg 08/02/21 09:00 08/02/21 10:07 Amlodipine 5 Mg Tab PO 5 mg DAILY CHANTELLE Administration Ascorbic Acid 1,000 mg 08/03/21 09:00 Ascorbic Acid 500 Mg Tab PO DAILY CHANTELLE Aspirin 81 mg 08/02/21 09:00 08/02/21 10:06 Aspirin 81 Mg PO 81 mg DAILY CHANTELLE Administration Cholecalciferol 50 mcg 08/03/21 09:00 Cholecalciferol 25 Mcg (1000 Iu) Tablet PO DAILY CHANTELLE Dexamethasone 6 mg 08/02/21 10:00 08/02/21 13:17 Dexamethasone 2 Mg Tab PO 6 mg DAILY CHANTELLE Administration Enoxaparin Sodium 40 mg 08/02/21 10:00 08/02/21 13:17 Enoxaparin 40 Mg/0.4 Ml Syringe SQ 40 mg DAILY CHANTELLE Administration Sodium Chloride 1,000 mls @ 130 mls/hr 08/02/21 01:30 08/02/21 13:17 Saline 0.9% IV 130 mls/hr .[id number] CHANTELLE Administration Lisinopril 30 mg 08/02/21 21:00 Lisinopril 10 Mg Tab PO HS CHANTELLE Lorazepam 0.5 mg 08/02/21 01:19 08/02/21 04:17 Lorazepam 2 Mg/Ml Inj IV 0.5 mg Q6HR PRN Administration Anxiety Metoprolol Succinate 25 mg 08/02/21 09:00 08/02/21 10:06 Metoprolol Succinate (Er) 25 Mg Tab.Er.24h PO 25 mg DAILY CHANTELLE Administration Morphine Sulfate 4 mg 08/02/21 01:19 Morphine Sulfate 4 Mg/Ml Syringe IV Q4HR PRN Severe Pain Naloxone HCl 0.2 mg 08/02/21 01:19 Naloxone 0.4 Mg/Ml 1 Ml Vial IV Q2M PRN Opioid Reversal Ondansetron HCl 4 mg 08/02/21 01:19 Ondansetron 4 Mg/2 Ml Vial IVP Q8HR PRN Nausea And Vomiting Pantoprazole Sodium 40 mg 08/02/21 09:00 08/02/21 10:07 Pantoprazole 40 Mg/10 Ml Vial IV 40 mg DAILY CHANTELLE Administration Zinc Sulfate 220 mg 08/03/21 09:00 Zinc Sulfate 220 Mg Cap PO DAILY CHANTELLE Intake and Output 08/01/21 08/02/21 08/02/21 22:59 06:59 14:59 Other: Weight 101.605 kg 101.605 kg Patient Weight 08/03/21 06:59 Weight 101.605 kg 08/01/21 19:48 08/01/21 19:48 Assessment and Plan Assessment: #1 COVID-19 #2 symptoms of palpitations with atrial runs noted on EKG, likely exacerbated by underlying infection #3 hypertension #4 hyperlipidemia #5 carotid artery disease followed by Dr. Fitzgerald Plan: From Cardiology's perspective patient's underlying arrhythmia likely exacerbated by infection. We will obtain a 2-D echo with Doppler study to assess cardiac structure and function. We will continue to monitor patient on telemetry and assess for further arrhythmia. Patient may require outpatient evaluation of arrhythmia once she is recovered from COVID-19. The above dictated assessment and findings were discussed with signing physician. The impression and plan of care have been directed as dictated. Donna Evans, Nurse Practitioner, acting as scribe for signing physician.
--- NOTE | 2021-08-02 15:33 | P.CNPUL ---
History of Present Illness Consult date: 08/02/21 Chief complaint: Lightheadedness and palpitations History of present illness: COVID 19 infection I was consulted on this patient because of a COVID 19 affectionate was identified during this current hospitalization. The patient was having some lightheadedness and she has also noted some fluctuation her heart rate with episodic tachycardia. During her hospital stay, she was noted to have a atrial fibrillation currently she is back into normal sinus rhythm. Cardiology has been consulted. Her cardiac rhythm is sinus for now. She is resting comfortably in bed. He is on room air oxygen. Her chest x-rays clear. No other signs of COVID 19 infection manifestations no nausea. No vomiting. No diarrhea. No abdominal pain. No chest pain. She is not vaccinated. Her d- dimer is at 0.64. Urinalysis is negative. Was a causative 3. She does have a lymphopenia with a lymphocyte count of 0.9. Thyroid function tests have been essentially within normal limits. Cardiology is to comment on her cardiac arrhythmias. Otherwise no other significant issues for now. Review of Systems Constitutional: No fever, no chills, no night sweats. No weight change. No weakness, fatigue or lethargy. No daytime sleepiness. EENT: No headache. No blurred vision or double vision, no loss of vision. No loss of Hearing, no ringing in the ears, no dizziness. No nasal drainage or congestion. No epistaxis. No sore throat. Lungs: No shortness of breath, noted cough, no sputum production. No wheezing. Cardiovascular: No chest pain, no lower extremity edema. Reports palpitations. No paroxysmal nocturnal dyspnea. No orthopnea. Reports lightheadedness or dizziness. Reports near syncopal episodes. Abdominal: No abdominal pain. No nausea, vomiting. No diarrhea. No constipation. No bloody or tarry stools.. No loss of appetite. Genitourinary: No dysuria, increased frequency, urgency. No urinary retention. Musculoskeletal: No myalgias. No muscle weakness, no gait dysfunction, no frequent falls. No back pain. No neck pain. Integumentary: No wounds, no lesions. No rash or pruritus. No unusual bruising. No change in hair or nails. Neurologic: No aphasia. No facial droop. No change in mentation. No head injury. No headache. No paralysis. No paresthesia. Psychiatric: No depression. No anxiety. No mood swings. Endocrine: No abnormal blood sugars. No weight change. Past Medical History Past Medical History: Hypertension Additional Past Medical History / Comment(s): HX HEMMOROIDS History of Any Multi-Drug Resistant Organisms: None Reported Past Surgical History: Appendectomy, Hysterectomy, Orthopedic Surgery Additional Past Surgical History / Comment(s): left knee replacement HEMMOROIDECTOMY Past Anesthesia/Blood Transfusion Reactions: No Reported Reaction Past Psychological History: No Psychological Hx Reported Smoking Status: Never smoker Past Alcohol Use History: None Reported Past Drug Use History: None Reported - Past Family History Mother Family Medical History: Coronary Artery Disease (CAD) Additional Family Medical History / Comment(s): HAD STENTS Brother(s) Family Medical History: Myocardial Infarction (ID) Additional Family Medical History / Comment(s): CABG Sister(s) Family Medical History: Cancer Additional Family Medical History / Comment(s): colon cancer Father Family Medical History: Coronary Artery Disease (CAD) Additional Family Medical History / Comment(s): HAD STENTS Medications and Allergies Home Medications Medication Instructions Recorded Confirmed Type Lactulose 10 gm PO DAILY PRN 02/22/20 08/01/21 History Aspirin EC [Ecotrin Low Dose] 81 mg PO DAILY 10/26/20 08/01/21 History Metoprolol Succinate (ER) [Toprol 25 mg PO DAILY 08/01/21 08/01/21 History Xl] amLODIPine [Norvasc] 5 mg PO DAILY 08/01/21 08/01/21 History lisinopriL 30 mg PO HS 08/01/21 08/01/21 History Allergies Allergy/AdvReac Type Severity Reaction Status Date / Time No Known Allergies Allergy Verified 08/02/21 13:05 Physical Exam Vitals: Vital Signs Temp Pulse Pulse Pulse Resp BP BP 08/02/21 13:51 98.6 F 133 H 17 114/64 08/02/21 10:41 99.8 F H 79 18 133/75 08/02/21 06:13 82 16 124/61 08/02/21 03:17 92 17 154/87 08/02/21 01:55 18 08/01/21 23:33 75 18 08/01/21 22:09 123 H 18 142/89 08/01/21 20:25 120 H 08/01/21 20:24 123 H 20 140/79 08/01/21 16:05 98.1 F 111 H 18 101/70 Pulse Ox 08/02/21 13:51 95 08/02/21 10:41 96 08/02/21 06:13 96 08/02/21 03:17 97 08/02/21 01:55 08/01/21 23:33 96 08/01/21 22:09 95 08/01/21 20:25 08/01/21 20:24 98 08/01/21 16:05 99 Intake and Output 08/02/21 08/02/21 08/02/21 06:59 14:59 22:59 Other: # Voids 1 Weight 101.605 kg Gen. appearance the patient is calm comfortable active distress the patient is currently on room air oxygen. HEENT: Head is atraumatic, normocephalic. Pupils equal, round. Sclerae is anicteric. NECK: Supple. No JVD. No lymphadenopathy. No thyromegaly. LUNGS: Clear to auscultation. No wheezes or rhonchi. No intercostal ret ractions. HEART: Regular rate and rhythm. No murmur. ABDOMEN: Soft. Bowel sounds are present. No masses. No tenderness. EXTREMITIES: No pedal edema. No calf tenderness. Dorsalis pedis palpable carmita aterally. NEUROLOGICAL: Patient is awake, alert and oriented x3. Cranial nerves 2 through 12 are grossly intact. Results - Laboratory Findings CBC and BMP: 08/01/21 19:48 08/01/21 19:48 PT/INR, D-dimer D-Dimer 0.64 mg/L FEU (<0.60) H 08/01/21 22:11 Abnormal lab findings: Abnormal Labs 08/01/21 08/01/21 08/01/21 13:00 13:00 19:48 WBC 3.0 L RBC 3.05 L Hgb 9.3 L Hct 27.8 L Plt Count 143 L Lymphocytes # 0.4 L 0.9 L D-Dimer BUN 57 H Creatinine 1.61 H Glucose 104 H AST HDL Cholesterol 61.20 H Urine Protein Urine Blood Ur Leukocyte Esterase Urine WBC Urine Bacteria Urine Mucus Coronavirus (PCR) 08/01/21 08/01/21 08/01/21 19:48 21:16 22:09 WBC RBC Hgb Hct Plt Count Lymphocytes # D-Dimer BUN Creatinine Glucose 105 H AST 39 H HDL Cholesterol Urine Protein Trace H Urine Blood Trace H Ur Leukocyte Esterase Large H Urine WBC 12 H Urine Bacteria Rare H Urine Mucus Few H Coronavirus (PCR) Detected A 08/01/21 22:11 WBC RBC Hgb Hct Plt Count Lymphocytes # D-Dimer 0.64 H BUN Creatinine Glucose AST HDL Cholesterol Urine Protein Urine Blood Ur Leukocyte Esterase Urine WBC Urine Bacteria Urine Mucus Coronavirus (PCR) - Diagnostic Findings Chest x-ray: image reviewed Assessment and Plan Plan: 1 asymptomatic overnight and infection with limited lower minimal amount of manifestations if any as the patient reports to have chronic cough without any interval worsening. Chest x-rays clear. The oxygenation is within normal limits. 2 palpitations/lightheadedness with questionable approximately 2 fibrillation currently under investigation. The cardiac rhythm is sinus and the patient had an echocardiogram before in October 2020 showing severe concentric LVH and mild aortic sclerosis with a moderate pulmonary hypertension. She has a preserved LV function. Cardiology consultation has been placed forth. 3 hypertension 4 coronary artery disease 70% on the left 5 peripheral vascular disease Plan No evidence of a pneumonia. No evidence of knee distally compromise. We'll leave the management to medicine. We'll sign off the case. Management of palpitation and approximately atrial fibrillation per cardiology.
[2021-08-02] MEDS ORDERED: lisinopriL 10 MG TAB PO SCH (21:00)
[2021-08-03] MEDS: SODIUM CHLORIDE 0.9% 1,000 ML IV SCH ×3 (02:48→15:02)
[2021-08-03 08:11] VITALS: RESP 18
[2021-08-03] MEDS ORDERED: ZINC SULFATE 220 MG CAP PO SCH (09:00)
[2021-08-03] MEDS ORDERED: ASCORBIC ACID 500 MG TAB PO SCH (09:00)
[2021-08-03] MEDS ORDERED: CHOLECALCIFEROL 25 MCG (1000 IU) TABLET PO SCH (09:00)
--- NOTE | 2021-08-03 09:06 | P.DS ---
Providers Date of admission: 08/02/21 01:19 Expected date of discharge: 08/03/21 Attending physician: Scot Florian Consults: 08/02/21 01:20 Consult Physician Routine Consulting Provider: Dianne Mairna Consult Reason/Comments: covid Do you want consulting provider notified?: Yes Consult Physician Routine Consulting Provider: [place] Maya Consult Reason/Comments: judith Do you want consulting provider notified?: Yes Primary care physician: Scot Anival [facility] Hospital Course: History of Present Illness This is a 75-year-old female patient of Dr. Florian with past medical history of hypertension, peripheral vascular disease, carotid artery stenosis of 70% on the left. Patient had previous hospitalizations for near syncopal episode with episodes of SVT and uncontrolled hypertension. Patient complains of onset of dizziness last Wednesday. She is denies feeling congested or shortness of breath no sinus drainage. She has noted to have a cough and she states she has occasional headache. She denies any known over 19 contacts recently but her granddaughter was sick a few weeks ago. Patient apparently presented for concerns for palpitations in her heart racing that were happening multiple times per day and worsening. Patient was found to be afebrile, heart rate 111, blood pressure 101/70 and pulse ox 99%. Repeat blood pressure 140/79 with heart rate in the 120s. EKG was sinus arrhythmia/sinus tachycardia with first-degree AV block, followed by normal sinus rhythm, with no acute ST changes. WBC 3.0 otherwise CBC unremarkable. Electrolytes and renal function normal. Blood sugar 105. TSH 1.850 and free T4 1 0.64. Magnesium 2.0, potassium 3.5. Troponin negative. D-dimer 0.64. Urinalysis was nitrite negative, leukoesterase large, WBC 12. Coronavirus PCR detected. Chest x-ray reveals no active cardiac pulmonary disease. Patient apparently was prepared for discharge but was feeling weak and dizzy and did not feel comfortable going home and patient was admitted to the observation status. She is currently being seen in the emergency center and consult in place with cardiology and pulmonary medicine. Regarding her blood pressure medications, patient states she takes lisinopril 30 mg daily and recently stopped taking a water pill due to low blood pressure. Echocardiogram done 10/28/2020 revealed EF of 55-60%, severe concentric left ventricle hypertrophy, mild aortic valve sclerosis, trace mitral regurgitation, mild tricuspid regurgitation, borderline pulmonary artery hypertension, RVSP 33.77 mmHg. 08/03: Patient complains today only of an annoying cough. She denies any shortness of breath. Cardiology has reviewed her athletic monitor and she has had episodes of bradycardia but not less than 50s. She has had episodes of tachycardia which appears to be sinus tachycardia with PACs without clear evidence of atrial fibrillation. Patient has been cleared by cardiology for discharge with plan for follow-up with Dr. Guidry for an event monitor when she is recovered from Covid 19. Patient will be discharged home today in stable condition. DISCHARGE DIAGNOSES 1. Lightheadedness and palpitations most likely secondary to COVID-19, rule out arrhythmia. 2. Hypertension, uncontrolled. 3. COVID-19 infection. 4. Carotid artery disease with 70% stenosis on the left carotid artery. 5. Peripheral vascular disease, stable Discharge plan: Return home Greater than 35 minutes was utilized and coordinating patient's discharge. Impression and plan of care have been directed as dictated by the signing physician. Elif Maharaj nurse practitioner acting as scribe for signing physician. Patient Condition at Discharge: Good Plan - Discharge Summary New Discharge Prescriptions: New Zinc Sulfate [Orazinc] 220 mg PO DAILY cap Ascorbic Acid [Vitamin C] 1,000 mg PO DAILY tab Cholecalciferol [Vitamin D3 (25 Mcg = 1000 Iu)] 50 mcg PO DAILY tablet Dexamethasone [Decadron] 6 mg PO DAILY #5 tablet Continue Lactulose 10 gm PO DAILY PRN PRN Reason: Constipation Aspirin EC [Ecotrin Low Dose] 81 mg PO DAILY lisinopriL 30 mg PO HS amLODIPine [Norvasc] 5 mg PO DAILY Metoprolol Succinate (ER) [Toprol XL] 25 mg PO DAILY Discharge Medication List Lactulose 10 gm PO DAILY PRN 02/22/20 [History] Aspirin EC [Ecotrin Low Dose] 81 mg PO DAILY 10/26/20 [History] Metoprolol Succinate (ER) [Toprol XL] 25 mg PO DAILY 08/01/21 [History] amLODIPine [Norvasc] 5 mg PO DAILY 08/01/21 [History] lisinopriL 30 mg PO HS 08/01/21 [History] Ascorbic Acid [Vitamin C] 1,000 mg PO DAILY tab 08/03/21 [Rx] Cholecalciferol [Vitamin D3 (25 Mcg = 1000 Iu)] 50 mcg PO DAILY tablet 08/03/21 [Rx] Dexamethasone [Decadron] 6 mg PO DAILY #5 tablet 08/03/21 [Rx] Zinc Sulfate [Orazinc] 220 mg PO DAILY cap 08/03/21 [Rx] Follow up Appointment(s)/Referral(s): Scot Florian MD [Primary Care Provider] - 1 Week Devang Rodriguez MD [STAFF PHYSICIAN] - 3 Weeks (ARRHYTHMIA WORK UP OP) Patient Instructions/Handouts: Coronavirus Disease 2019 (COVID-19), Atrial Tachycardia (ED), Sick Sinus Syndrome (ED) Activity/Diet/Wound Care/Special Instructions: Please continue to quarantine for the next 10 DAYS TO 2 weeks per cc guidelines. [id number] vitamin C, vitamin D, and zinc. Melatonin at bedtime may help. Tylenol as needed Discharge Disposition: HOME SELF-CARE
[2021-08-03] MEDS: PANTOPRAZOLE 40 MG/10 ML VIAL IV SCH (09:11)
[2021-08-03] MEDS: ASPIRIN 81 MG PO SCH (09:12)
[2021-08-03] MEDS: ENOXAPARIN 40 MG/0.4 ML SYRINGE SQ SCH (09:12)
[2021-08-03] MEDS: dexAMETHasone 2 MG TAB PO SCH (09:12)
[2021-08-03] MEDS: METOPROLOL SUCCINATE (ER) 25 MG TAB.ER.24H PO SCH (09:13)
[2021-08-03] MEDS: amLODIPine 5 MG TAB PO SCH (09:13)
[2021-08-03 09:23] LABS: Basophils # (A) 0 X 10*3/uL (0.00-0.10); Basophils % (A) 0 %; Eosinophils # (A) 0 X 10*3/uL (0.04-0.35); Eosinophils % (A) 0 %; HCT 36.5 % (37.2-46.3); HGB 11.5 g/dL (12.0-15.0); Lymphocytes # (A) 0.64 X 10*3/uL (0.90-5.00); Lymphocytes % (A) 26.3 %; MCHC 31.5 g/dL (32.0-37.0); MCV 88.8 fL (80.0-97.0); Mean Platelet Volume 10.9 fL (9.5-12.2); Monocytes # (A) 0.22 X 10*3/uL (0.20-1.00); Monocytes % (A) 9.1 %; Neutrophils # (A) 1.56 X 10*3/uL (1.80-7.70); Neutrophils % (A) 64.2 %; Platelet Count 135 X 10*3/uL (140-440); RBC 4.11 X 10*6/uL (4.10-5.20); RDW 13.9 % (11.5-14.5); WBC 2.43 X 10*3/uL (4.50-10.00)
[2021-08-03 09:55] LABS: African American GFR (CKD) 98.9 (60.0-200.0); Albumin 3.4 g/dL (3.8-4.9); Albumin/Globulin Ratio 1.7 (1.60-3.17); Anion Gap 9.2 mmol/L (10.00-18.00); BUN/Creat Ratio 19.14 Ratio (12.00-20.00); Blood Urea Nitrogen 13.4 mg/dL (9.0-27.0); Carbon Dioxide 21.8 mmol/L (20.0-27.5); Non-African American GFR(CKD) 85.4 (60.0-200.0); Potassium 3.6 mmol/L (3.5-5.5); Total Bilirubin 0.2 mg/dL (0.30-1.20); Total Protein 5.4 g/dL (6.2-8.2)
--- NOTE | 2021-08-03 13:38 | P.PN ---
Subjective Progress Note Date: 08/03/21 This is a pleasant 75-year-old female patient who follows with Dr. Guidry in the office. Has a history of palpitations in the past and has been worked up with no significant findings. Presented to the emergency department because she's been having more frequent rotations over the past week. She apparently also developed a cough a little under a week ago with some nasal congestion and drainage. Upon presentation in the emergency department EKG did show sinus mechanism with some episodes of sinus tachycardia and brief atrial runs. She was found to be positive for COVID-19 receive monoclonal antibodies and was going to be discharged home but felt quite weak and not well therefore she is being held for observation. We were consulted for bradycardia however there is been no evidence of bradycardia noted on EKGs or telemetry monitoring. Overall she's feeling a bit better. She continues to complain of fatigue and weakness. No significant complaints this morning of palpitations or dizziness. Appetite values show normal thyroid function. Running creatinine were elevated on admission at 57 and 1.61 which have normalized post hydration at 14 and 0.76. Vital signs have been stable. 08/03/2021 Was seen and interviewed resting currently event. Overall she feels worse today. Continues to feel fatigued and somewhat lightheaded when she sits up in bed but feels this is due to inactivity. She denies any complaints of chest discomfort, shortness of breath, palpitations or syncope. Vital signs of been stable there has July and some documentation of bradycardia however upon review of the rhythm strips it appears patient's heart rate has not been lower than high 50s. She continues to have episodes of tachycardia with some appearing to be sinus tachycardia, some PACs, some runs of what appear to be brief PAT with RVR no clear evidence of atrial fibrillation. Objective - Vital Signs Vital signs: Vital Signs Temp 97.9 F 08/03/21 07:00 Pulse 58 L 08/03/21 07:00 Resp 18 08/03/21 07:00 BP 130/68 08/03/21 07:00 Pulse Ox 95 08/03/21 07:00 Intake & Output 08/02/21 08/03/21 08/03/21 18:59 06:59 18:59 Intake Total 500 Balance 500 Weight 101.605 kg Intake: Oral 500 Other: Voiding Method Toilet # Voids 1 1 - Exam PHYSICAL EXAMINATION: This is a 75-year-old female in no apparent distress at the time of my examination. The examination was deferred secondary to COVID-19 infection VITAL SIGNS: Blood pressure on 130/68, heart rate 58, respirations 18, temp 97.9F. Patient is 95% on room air. - Labs CBC & Chem 7: 08/03/21 05:19 12 05:19 Labs: Abnormal Lab Results - Last 24 Hours (Table) 08/03/21 08/03/21 Range/Units 05:19 05:19 WBC 2.43 L (4.50-10.00) X 10*3/uL Hgb 11.5 L (12.0-15.0) g/dL Hct 36.5 L (37.2-46.3) % MCHC 31.5 L (32.0-37.0) g/dL Plt Count 135 L (140-440) X 10*3/uL Neutrophils # 1.56 L (1.80-7.70) X 10*3/uL Lymphocytes # 0.64 L (0.90-5.00) X 10*3/uL Eosinophils # 0 L (0.04-0.35) X 10*3/uL Chloride 110 H (96-109) mmol/L Anion Gap 9.20 L (10.00-18.00) mmol/L Calcium 8.0 L (8.7-10.3) mg/dL Total Bilirubin 0.20 L (0.30-1.20) mg/dL Total Protein 5.4 L (6.2-8.2) g/dL Albumin 3.4 L (3.8-4.9) g/dL Assessment and Plan Assessment: #1 COVID-19 #2 symptoms of palpitations with atrial runs noted on EKG, likely exacerbated by underlying infection #3 hypertension #4 hyperlipidemia #5 carotid artery disease followed by Dr. Fitzgerald Plan: From Cardiology's perspective patient's underlying arrhythmia likely exacerbated by infection. The patient may be discharged home today from our standpoint. She will need to follow-up in the office with Dr. Guidry for an event monitor when she is recovered from COVID-19. The above dictated assessment and findings were discussed with signing physician. The impression and plan of care have been directed as dictated. Donna Evans, Nurse Practitioner, acting as scribe for signing physician.
[2021-08-03 15:23] VITALS: BP 136/79; PULSE 95; TEMP 98
== END 2021-08-03 16:32 | disposition home or self-care (01) ==
LOC: EC 15:55 → 6NMEDSUR 08-02 01:19
PROVIDERS: ADMIT Internal Medicine Geriatric Medicine; ATTEND Internal Medicine Geriatric Medicine
DX: U07.1 COVID-19 (principal); R42 Dizziness and giddiness; R00.2 Palpitations; I10 Essential (primary) hypertension; I73.9 Peripheral vascular disease, unspecified; I65.22 Occlusion and stenosis of left carotid artery; I47.1 Supraventricular tachycardia; R51.9 Headache, unspecified; I44.0 Atrioventricular block, first degree; R53.1 Weakness; R00.1 Bradycardia, unspecified; D72.810 Lymphocytopenia; R05.3 Chronic cough; I27.20 Pulmonary hypertension, unspecified; M54.6 Pain in thoracic spine; R11.2 Nausea with vomiting, unspecified; R09.81 Nasal congestion; R53.83 Other fatigue; R94.4 Abnormal results of kidney function studies; E78.5 Hyperlipidemia, unspecified; I07.1 Rheumatic tricuspid insufficiency; Z79.82 Long term (current) use of aspirin; Z79.899 Other long term (current) drug therapy; Z96.652 Presence of left artificial knee joint; Z90.710 Acquired absence of both cervix and uterus; Z82.49 Family history of ischemic heart disease and other diseases of the circulatory system; Z80.0 Family history of malignant neoplasm of digestive organs
CPT/HCPCS: 96376; 96361 ×2; 96372 ×2; 96374; 96375; 99285; 36415; 93005; 85379; 84439; 80061; 80053 ×2; 84443 ×2; 83735; 84484; 85025 ×2; 81001; 82306; 87086; 87635; 71046; G0378 ×2; M0247; J2060; J1650 ×2; J8540 ×2; C9113 ×2; Q0247

== ENCOUNTER → 2022-02-09 | Outpatient (CLI) | payer MEDICARE, OTHER ==
[~2022-02-09] MED LIST changes: -ACETAMINOPHEN TAB 500 MG TAB PO ONE; -DEXAMETHASONE SOD PHOSPHATE 10 MG/ML 1 ML VIAL IV ONE; -LIDOCAINE 1% 20 ML VIAL (10MG/ML) FOR IV START INTRADERMA PRN; -MELOXICAM 7.5 MG TAB PO ONE; -MIDAZOLAM 2 MG/2 ML VIAL IV PRN; -ONDANSETRON 4 MG/2 ML VIAL IVP ONE; +REGADENOSON 0.4 MG/5 ML SYRINGE IV PRN; -ROPIVACAINE 246.25 MG, EPINEPHrine 0.5 MG, KETOROLAC 30 MG, cloNIDine HCL/PF 80 MCG, WA... MISCELLANE ONE; -SCOPOLAMINE 1.5MG/72HR PATCH TRANSDERM ONE; -TRANEXAMIC ACID 1,000 MG in SODIUM CHLORIDE 0.9% 50 ML IVPB ONE; -ceFAZolin IN SWFI 2 GM/20 ML SYRINGE IVP ONE; -fentaNYL (PF) 50 MCG/ML 2 ML AMP IV PRN
--- NOTE | 2022-02-09 12:43 | CA ---
Lexiscan Nuclear Stress Test Report Name: Venus Keane Exam Date: 02/09/2022 10:15 Exam Location: [place] Stress Ht (in): 67 Wt (lb): 230 BSA: 2.15 Ordering Phys: Scot Florian MD Referring Phys: Idania Alfredo Technologist: Kenton Vargas Age: 76 Gender: F : 1945 Procedure CPT: Indications: R07.9 ICD-10 Codes: Patient History: CP, DIFFICULTY IN BREATHING, HTN, FAMILY HX OF HEART DISEASE Medications: LISINOPRIL,,,,,, AMLODIPINE,,,,,, ISOBIDEL,,,,, Meds past 24 hrs: Pretest Chest Pain: STRESS TEST Lexiscan Protocol Exercise Duration (min:sec): 01:[address] Depressions (mm): Angina Score: Hughes Score: Resting HR (bpm): 79 Peak HR (bpm): 87 Resting BP (mmHg): 171 / 83 Peak BP (mmHg): 171 / 83 MPHR: 145 Target HR: 123 % MPHR: 60 METS: 1.0 Total Dose: Peak Dose: Atropine: Double Product: 70150 BP Response: Stress Termination: INFUSION COMPLETE Stress Symptoms: SHOULDER BLADE PAIN Stress Summary: ECG ANALYSIS Resting ECG: Stress ECG: CONCLUSIONS Baseline EKG revealed normal sinus rhythm with nonspecific ST abnormality. With Lexiscan administration heart rate went up from 79 bpm to 87 bpm. The blood pressure was about 170/80. Patient did not have any anginal symptoms. EKG was inconclusive because of resting EKG changes. By EKG criteria this is an inconclusive Lexiscan stress and resting EKG changes. The nuclear scan results which are more pertinent will be reported by the radiologist Dr. Aleksandar Gore MD (Electronically Signed) Final Date: 09 February 2022 12:42
--- NOTE | 2022-02-09 12:59 | NM ---
EXAMINATION TYPE: NM stress lexiscan cardiolite DATE OF EXAM: 02/09/2022 COMPARISON: NONE HISTORY: R07.9 TECHNIQUE: After the intravenous administration of 9.1 mCi Tc 99m Sestamibi - Cardiolite resting SPE CT images acquired 50 minutes post injection. The patient received 0.4mg Lexiscan, 25.5 mCi Tc 99m Sestamibi - Stress images obtained [address] injection FINDINGS: Review of stress and rest SPECT images demonstrates decreased perfusion apical lateral wall most of w hich appears to be faxed however there may be a small reversible component. Correlate for stress-carolin gina ischemia. Gated analysis shows normal wall motion with an estimated left ventricular ejection fra ction of 62 %. IMPRESSION: Decreased perfusion apical lateral wall most of which appears to be faxed however there may be a smal l reversible component. Correlate for stress-induced ischemia.
== END | disposition home or self-care (01) ==
LOC: RADNMMAIN 08:14
PROVIDERS: ATTEND Internal Medicine Geriatric Medicine
DX: R07.9 Chest pain, unspecified (principal)
CPT/HCPCS: 93017; 78452; A9500; J2785

== ENCOUNTER 2022-02-20 09:58 | Inpatient (IN) | payer MEDICARE, OTHER ==
[~2022-02-20 09:58] MED LIST changes: +ALPRAZolam 0.25 MG TAB PO PRN; +ALPRAZolam 0.5 MG TAB PO PRN; +ASPIRIN 325 MG TAB PO STA; +ATORVASTATIN 80 MG TAB PO STA; +HEPARIN SODIUM,PORCINE 10,000 UNIT in SODIUM CHLORIDE 0.9% 1,000 ML IRRIGATION PRN; +HEPARIN SODIUM,PORCINE 2,500 UNIT in SODIUM CHLORIDE 0.9% 250 ML IRRIGATION PRN; +NITROGLYCERIN SL TABS 0.4 MG TAB SUBLINGUAL PRN; -REGADENOSON 0.4 MG/5 ML SYRINGE IV PRN
[2022-02-20] MEDS ORDERED: SODIUM CHLORIDE 0.9% 1,000 ML IV ONE (10:39)
[2022-02-20 10:57] LABS: African American GFR (CKD) >90 (>60 ml/min/1.73 sqM); Anion Gap 9 mmol/L; Basophils % (A) 1 %; Blood Urea Nitrogen 15 mg/dL (7-17); Calcium 9.1 mg/dL (8.4-10.2); Carbon Dioxide 23 mmol/L (22-30); Chloride 109 mmol/L (98-107); Eosinophils # (A) 0.1 k/uL (0-0.7); Eosinophils % (A) 2 %; Glucose 101 mg/dL (74-99); HCT 42.3 % (34.0-46.0); HGB 13.9 gm/dL (11.4-16.0); Lymphocytes # (A) 1.5 k/uL (1.0-4.8); Lymphocytes % (A) 24 %; MCH 29.7 pg (25.0-35.0); MCHC 32.8 g/dL (31.0-37.0); MCV 90.5 fL (80.0-100.0); Mean Platelet Volume 8.1; Monocytes # (A) 0.3 k/uL (0-1.0); Monocytes % (A) 5 %; Neutrophils # (A) 4.2 k/uL (1.3-7.7); Neutrophils % (A) 67 %; Non-African American GFR(CKD) 86 (>60 ml/min/1.73 sqM); Platelet Count 361 k/uL (150-450); Potassium 3.9 mmol/L (3.5-5.1); RBC 4.68 m/uL (3.80-5.40); Sodium 141 mmol/L (137-145); WBC 6.3 k/uL (3.8-10.6)
[2022-02-20] MEDS ORDERED: VERAPAMIL 2.5 MG/ML 2 ML AMP ONE (12:06)
[2022-02-20] MEDS ORDERED: HEPARIN SODIUM 1,000 UN/ML (10ML VL) ONE (12:06)
[2022-02-20] MEDS ORDERED: MIDAZOLAM 2 MG/2 ML VIAL IV ONE ×2 (12:39→12:49)
[2022-02-20] MEDS ORDERED: VERAPAMIL SYRINGE (5 MG/10 ML) INTRAARTER ONE (12:40)
[2022-02-20] MEDS ORDERED: LIDOCAINE 1% INJ 10MG/ML (5 ML VIAL-PF) SQ ONE (12:40)
[2022-02-20] MEDS ORDERED: HEPARIN SODIUM 1,000 UN/ML (10ML VL) IV ONE ×2 (12:44→20:00)
[2022-02-20] MEDS ORDERED: IOPAMIDOL-370 125ML BTL INJ ONE (12:54)
[2022-02-20] MEDS: SODIUM CHLORIDE 0.9% 1,000 ML IV SCH (13:15)
[2022-02-20] MEDS ORDERED: RX INFO: IV CONTRAST WAS GIVEN 1 EACH MISC MISCELLANE PRN ×2 (13:24→13:28)
[2022-02-20] MEDS ORDERED: SODIUM CHLORIDE 0.9% 1,000 ML IV SCH (13:30)
--- NOTE | 2022-02-20 13:33 | P.PCN ---
Date of Procedure: 02/20/22 Operative Findings: CARDIAC CATHETERIZATION PERFORMING PHYSICIAN: Toi Guidry MD, RPVI PROCEDURE PERFORMED: 1. Selective right and left coronary angiogram 2. Left heart catheterization INDICATION: This is a 76-year-old female patient was carotid atherosclerosis who sees Dr. Gomez regularly as well as hypertension and dyslipidemia who was seen in the office recently for intermittent episodes of chest discomfort. She underwent myocardial perfusion imaging stress test which revealed lateral ischemia. In the light of that she was started on beta ena with Toprol-XL as well as iso sorbide mononitrate and she was scheduled to undergo a heart catheterization. COMPLICATION: None APPROACH: Right radial artery LEVEL OF SEDATION: Moderate with a sedation length of 16 minutes PROCEDURE DESCRIPTION: After obtaining an informed consent, the patient was brought to cardiac mason tender restoration labor. Local anesthesia was performed using lidocaine subcutaneously. The right radial artery was cannulated using Seldinger technique, the guidewire passed easily, following that we advanced a 5-Armenian sheath dilator assembly, the wire and dilator were removed and sheath was flushed. Following that, 2 mg of verapamil along with 5000 unit heparin were given. Selective right and left coronary angiogram using a 6-Armenian JR4 and JL 3.5 catheters. Following that we did left heart catheterization using 6-Armenian pigtail catheter. The procedure was completed there was no complication. SELECTIVE CORONARY ANGIOGRAM: The right coronary artery: Is a large caliber vessel and a dominant vessel. The RCA by the ostium has a lesion appeared to be in the range of 30-40%. The mid RCA has mild disease only. The RCA distally appeared to be angiographically normal and bifurcates into PDA and PLV branches both appeared to be angiographically normal Left main: The distal left main by the bifurcation of LCx and LAD has a lesion appeared to be in the range of 80-90% and the lesion eccentric in the left main is c alcified. The lesion is involving the ostial LCx and ostial LAD The left circumflex: The ostial LCx has a lesion appeared to be in the range of 95-99%. The LCx is a large caliber vessel. It gives rises into a large OM which trifurcates into 3 branches and all appeared to have mild disease only. The circumflex continue after that as a small-caliber vessel in the AV groove The left anterior descending artery: The ostial LAD is also involved in the lesion from the left main. The ostial LAD lesion appeared to be in the range of 80-90%. The proximal LAD has another lesion appears to be in the range of 60-70%. The mid and distal LAD appears to have mild disease only. HEMODYNAMICS: The LVEDP was about 18 mmHg was no significant gradient across aortic valve CONCLUSION: 1. Critical and complex lesion involving the distal left main coronary artery and also involving the ostial LCx and ostial LAD. The lesion appeared to be in the range of 80-90%. 2. Elevated left-sided filling pressure was LVEDP of 18 mmHg POSTPROCEDURE MANAGEMENT: Giving the above anatomy I advised the patient to be seen and evaluated by cardiothoracic surgeon for evaluation of coronary artery that is grafting
[2022-02-20 14:06] LABS: Appearance,Urine Clear (Clear); Bilirubin,Urine Negative (Negative); Blood,Urine Trace (Negative); Color,Urine Light Yellow; Glucose,Urine (UA) Negative (Negative); Ketones,Urine Negative (Negative); Leukocyte Esterase,Urine Negative (Negative); Mucus,Urine Rare /hpf; Nitrite,Urine Negative (Negative); PH, Urine 6.5 (5.0-8.0); Protein,Urine Negative (Negative); RBC,Urine 2 /hpf (0-5); Squamous Epithelial Cell,Urine <1 /hpf (0-4); Urobilinogen,Urine <2.0 mg/dL (<2.0); WBC,Urine <1 /hpf (0-5)
--- NOTE | 2022-02-20 14:55 | US ---
EXAMINATION TYPE: US carotid duplex BILAT DATE OF EXAM: 02/20/2022 COMPARISON: NONE CLINICAL HISTORY: preop cardiac surgery. EXAM MEASUREMENTS: RIGHT: Peak Systolic Velocity (PSV) cm/sec ----- Right CCA: 76.7 ----- Right ICA: 124.0 ----- Right ECA: 120.0 ICA/CCA ratio: 1.62 RIGHT: End Diastole cm/sec ----- Right CCA: 14.3 ----- Right ICA: 34.4 ----- Right ECA: 10.4 LEFT: Peak Systolic Velocity (PSV) cm/sec ----- Left CCA: 70.8 ----- Left ICA: 212.0 ----- Left ECA: 105.0 ICA/CCA ratio: 2.99 LEFT: End Diastole cm/sec ----- Left CCA: 14.3 ----- Left ICA: 46.6 ----- Left ECA: 0.0 VERTEBRALS (direction of flow): Right Vertebral: Antegrade Left Vertebral: Antegrade Rhythm: Normal Elevated left ICA velocities. IMPRESSION: No evidence of hemodynamically significant stenosis. Criteria for Assigning % of Stenosis / Diameter reduction (Estimation based on the indirect measurements of the internal carotid artery velocities (ICA PSV). 1. Normal (no stenosis)=ICA PSV < 125 cm/s: ratio < 2.0: ICA EDV<40 cm/s. 2. Less than 50% stenosis=ICA PSV < 125 cm/s: ratio < 2.0: ICA EDV<40 cm/s. 3. 50 to 69% stenosis=ICA PSV of 125 to 230 cm/s: ration 2.0 ? 4.0: ICA EDV 40-100 cm/s. 4. Greater than 70% stenosis to near occlusion= ICA PSV > 230 cm/s: ratio > 4.0: ICA EDV > 100 cm/s. 5. Near occlusion= ICA PSV velocities may be low or undetectable: variable ratio and ICA EDV. 6. Total occlusion=unable to detect flow.
--- NOTE | 2022-02-20 14:59 | XR ---
EXAMINATION TYPE: XR chest 2V DATE OF EXAM: 02/20/2022 COMPARISON: 08/01/2021 HISTORY: Shortness of breath TECHNIQUE: Frontal and lateral views of the chest are obtained. FINDINGS: Scattered senescent parenchymal changes noted. Hyperinflation compatible with COPD. There is pulmonary venous congestion with interstitial edema. Tiny effusions suspected on the lateral projection. Heart size is stable. Mediastinal structures are stable and grossly unremarkable. No evidence for hilar prominence. Degenerative changes dorsal spine. IMPRESSION: 1. Mild interstitial edema noted.
[2022-02-20 15:23] LABS: ALT 13 U/L (4-34); AST 19 U/L (14-36); African American GFR (CKD) >90 (>60 ml/min/1.73 sqM); Albumin 4.1 g/dL (3.5-5.0); Alkaline Phosphatase 115 U/L (38-126); Anion Gap 6 mmol/L; Blood Urea Nitrogen 12 mg/dL (7-17); Calcium 8.8 mg/dL (8.4-10.2); Carbon Dioxide 24 mmol/L (22-30); Chloride 111 mmol/L (98-107); Glucose 96 mg/dL (74-99); Non-African American GFR(CKD) 88 (>60 ml/min/1.73 sqM); Potassium 3.7 mmol/L (3.5-5.1); Sodium 141 mmol/L (137-145); Total Bilirubin 0.4 mg/dL (0.2-1.3); Total Protein 6.7 g/dL (6.3-8.2)
[2022-02-20 15:24] LABS: Partial Thromboplastin Time 34.3 sec (22.0-30.0); Prothrombin Time 10.7 sec (9.0-12.0)
[2022-02-20 15:28] LABS: ALT 15 U/L (4-34); AST 23 U/L (14-36); Albumin 4.2 g/dL (3.5-5.0); Alkaline Phosphatase 103 U/L (38-126); Total Bilirubin 0.4 mg/dL (0.2-1.3); Total Protein 7.1 g/dL (6.3-8.2)
--- NOTE | 2022-02-20 15:41 | P.GSCN ---
History of Present Illness Consult date: 02/20/22 Reason for Consult: Coronary artery disease with left main disease Requesting physician: Toi Guidry History of present illness: This is a 76-year-old female patient who follows on an outpatient basis with Dr. Florian for primary care and Dr. Guidry for cardiology. She has a previous medical history of hypertension, hyperlipidemia, SVT, severe left internal carotid artery stenosis followed by Dr. Fitzgerald, never smoker, and family history of coronary artery disease with both parents having stent placement and brother having open heart surgery after myocardial infarction. She reports symptoms of chest pain with exertion concerning for angina for approximately 3 weeks. She states pain was relieved with rest and sublingual nitro, denies any shortness of breath, diaphoresis or any other symptoms. She does state she gets peripheral edema occasionally and this has been going on for some time. She underwent stress testing which was abnormal demonstrating lateral wall ischemia and was recommended to undergo elective heart catheterization which was completed today by Dr. Guidry and which demonstrated distal left main stenosis 80-90% at the bifurcation, ostial circumflex stenosis 99%, ostial LAD stenosis 80-90% with proximal LAD stenosis 60-70%, LVEDP 18 mmHg with no gradient across the aortic valve. Due to these findings the patient will be kept inpatient and consultation was placed to cardiothoracic surgery for surgical revascularization recommendations. Review of Systems Review of systems was completed and was negative except as noted - Cardiovascular Reports as per HPI, Reports chest pain Past Medical History Past Medical History: Fibromyalgia, Hyperlipidemia, Hypertension, Osteoarthritis (OA), Supraventricular Tachycardia (SVT) Additional Past Medical History / Comment(s): urinary incontinence-wears pad, past MRI should ?stroke, severe left internal carotid artery stenosis followed by Dr. Fitzgerald, frequent constipation History of Any Multi-Drug Resistant Organisms: None Reported Past Surgical History: Appendectomy, Hysterectomy, Joint Replacement, Orthopedic Surgery Additional Past Surgical History / Comment(s): left knee replacement, HEMORROIDECTOMY, carmita cataracts removed, surg. for glaucoma right eye Past Anesthesia/Blood Transfusion Reactions: No Reported Reaction Smoking Status: Never smoker Past Alcohol Use History: None Reported Past Drug Use History: None Reported - Past Family History Mother Family Medical History: Coronary Artery Disease (CAD) Additional Family Medical History / Comment(s): HAD STENTS Brother(s) Family Medical History: Myocardial Infarction ([place]) Additional Family Medical History / Comment(s): CABG Sister(s) Family Medical History: Cancer Additional Family Medical History / Comment(s): colon cancer Father Family Medical History: Coronary Artery Disease (CAD) Additional Family Medical History / Comment(s): HAD STENTS Medications and Allergies Home Medications Medication Instructions Recorded Confirmed Type Aspirin EC [Ecotrin Low Dose] 81 mg PO BID 10/26/20 02/20/22 History Metoprolol Succinate (ER) [Toprol 25 mg PO DAILY 08/01/21 02/20/22 History XL] amLODIPine [Norvasc] 5 mg PO DAILY 08/01/21 02/20/22 History lisinopriL 30 mg PO HS 08/01/21 02/20/22 History Ascorbic Acid [Vitamin C] 1,000 mg PO DAILY tab 08/03/21 02/20/22 Rx Cholecalciferol [Vitamin D3 (25 50 mcg PO DAILY tablet 08/03/21 02/20/22 Rx Mcg = 1000 Iu)] Zinc Sulfate [Orazinc] 220 mg PO DAILY cap 08/03/21 02/20/22 Rx Isosorbide Mononitrate ER [Imdur] 30 mg PO DAILY 02/18/22 02/18/22 History Lactulose 1 - 2 tbsp PO DIRECTED PRN 02/18/22 02/18/22 History Allergies Allergy/AdvReac Type Severity Reaction Status Date / Time No Known Allergies Allergy Verified 02/20/22 10:40 Surgical - Exam Vital Signs Temp Pulse Resp BP Pulse Ox 97.8 F 77 16 162/80 98 02/20/22 10:31 02/20/22 10:31 02/20/22 10:31 02/20/22 10:31 02/20/22 10:31 CONSTITUTIONAL: Awake and alert, appears comfortable, cooperative, well- developed, well-nourished, no pain, no acute distress EYES: Pupils equal, round, reactive to light, normal ocular movement ENT: Moist mucous membranes without oral lesions present NECK: No masses, no bruits, trachea midline RESPIRATORY: Lungs sounds clear to auscultation bilaterally. Respirations even, nonlabored. Currently on room air with oxygen saturation 100%. Strong cough. No chest wall deformities. No clubbing or cyanosis present CARDIOVASCULAR: S1, S2 present. Regular rate and rhythm, sinus rhythm on telemetry. Palpable peripheral pulses bilaterally. No edema present. No calf pain or tenderness noted. No significant lower extremity varicosities noted. GASTROINTESTINAL: Abdomen soft, nontender, nondistended without masses or organomegaly noted. There is no rebound or guarding present. Active bowel sounds present 4 quadrants. GENITOURINARY: Deferred INTEGUMENTARY: Skin is warm and dry with evidence of good perfusion. NEUROLOGIC: Cranial nerves II through XII intact, normal coordination, no obvious motor or sensory deficits, speech is normal MUSKULOSKELETAL: Able to move all extremities, strength equal bilaterally, normal posture PSYCHIATRIC: Alert and oriented to person place and time, appropriate affect, intact judgment and insight Results - Labs 02/20/22 10:08 02/20/22 15:04 Abnormal Lab Results - Last 24 Hours (Table) 02/20/22 02/20/22 Range/Units 10:08 14:02 Chloride 109 H (98-107) mmol/L Glucose 101 H (74-99) mg/dL Urine Blood Trace H (Negative) Urine Mucus Rare H (None) /hpf Diabetes panel 02/20/22 Range/Units 10:08 Sodium 141 (137-145) mmol/L Potassium 3.9 (3.5-5.1) mmol/L Chloride 109 H (98-107) mmol/L Carbon Dioxide 23 (22-30) mmol/L BUN 15 (7-17) mg/dL Creatinine 0.67 (0.52-1.04) mg/dL Glucose 101 H (74-99) mg/dL Calcium 9.1 (8.4-10.2) mg/dL Calcium panel 02/20/22 Range/Units 10:08 Calcium 9.1 (8.4-10.2) mg/dL Pituitary panel 02/20/22 Range/Units 10:08 Sodium 141 (137-145) mmol/L Potassium 3.9 (3.5-5.1) mmol/L Chloride 109 H (98-107) mmol/L Carbon Dioxide 23 (22-30) mmol/L BUN 15 (7-17) mg/dL Creatinine 0.67 (0.52-1.04) mg/dL Glucose 101 H (74-99) mg/dL Calcium 9.1 (8.4-10.2) mg/dL Adrenal panel 02/20/22 Range/Units 10:08 Sodium 141 (137-145) mmol/L Potassium 3.9 (3.5-5.1) mmol/L Chloride 109 H (98-107) mmol/L Carbon Dioxide 23 (22-30) mmol/L BUN 15 (7-17) mg/dL Creatinine 0.67 (0.52-1.04) mg/dL Glucose 101 H (74-99) mg/dL Calcium 9.1 (8.4-10.2) mg/dL - Imaging Chest x-ray: report reviewed, image reviewed Additional studies: Heart catheterization studies reviewed Assessment and Plan Assessment: 1. 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 Hypertension 3. Hyperlipidemia 4. SVT 5. Left internal carotid artery stenosis 6. Obesity 7. Never smoker 8. Remains unvaccinated against Covid 9. Family history of coronary artery disease Agree with documentation by [employer]. Patient examined, chart, cath and echo reviewed. Will need CABG this week. Will schedule. JR Plan: The patient was seen and examined in the extended stay area. Chart/diagnostics were reviewed. The case was discussed in detail with Dr. Gonzalez. The usual perioperative course of coronary artery bypass surgery was discussed in detail with the patient, risks and benefits were reviewed, all questions were answered. The patient does consent to surgery and preoperative testing was initiated. Once testing has been completed we will calculate STS risk score and discuss with the patient. We'll complete a 5 m walk test. Recommend continuing to maximize medical therapy with aspirin, statin, beta ena. Medical management of other comorbidities per primary care, cardiology. Thank you Dr. Guidry for this consult. We will continue to follow along with you and make recommendations as appropriate. I have personally seen and examined the patient, performed the documentation and the assessment and plan as written. Number of minutes spent on the visit: 30. PRATIK Blackman
[2022-02-20] MEDS: METOPROLOL SUCCINATE (ER) 25 MG TAB.ER.24H PO SCH (15:53)
[2022-02-20] MEDS: ISOSORBIDE MONONITRATE ER 15 MG TAB PO SCH (15:53)
[2022-02-20] MEDS: lisinopriL 10 MG TAB PO SCH (19:33)
[2022-02-20] MEDS: HEPARIN SOD,PORK IN 0.45% NACL 25,000 UNIT in 0.45% NACL 1 250ML.BAG IV SCH (20:13)
[2022-02-20 22:35] LABS: Hepatitis A Antibody IgM Nonreactive (Nonreactive); Hepatitis B Core IgM Nonreactive (Nonreactive); Hepatitis B Surface Antigen Nonreactive (Nonreactive); Hepatitis C IgG Antibody Nonreactive (Nonreactive)
[2022-02-21 02:39] LABS: Chol/HDL Ratio 4.89 Ratio
[2022-02-21] MEDS: SODIUM CHLORIDE 0.9% 1,000 ML in EMPTY BAG 1 BAG IV SCH ×4 (05:21→13:02)
[2022-02-21] MEDS: SODIUM CHLORIDE 0.9% 1,000 ML IV SCH ×2 (07:35→13:06)
--- NOTE | 2022-02-21 08:39 | P.PN ---
Subjective Progress Note Date: 02/21/22 Principal diagnosis: Coronary artery disease with left main disease. Previous medical history of hypertension, hyperlipidemia, SVT, left internal carotid artery stenosis, obesity, never smoker, remains unvaccinated against Covid, family history of coronary artery disease The patient was seen and examined sitting up in bed of the cardiac stepdown unit eating breakfast. Apparently she did have an episode of chest pain last night which resolved with Imdur. She remains in sinus rhythm and hemodynamically stable. Currently on IV heparin. Preoperative testing completed, we will calculate STS risk score once echocardiogram has been officially read. Dr. Gonzalez to review films and meet with patient today. 5 meter walk test was completed without difficulty, 4.95 seconds, 4.80 seconds, 4.77 seconds. Objective - Vital Signs Vital signs: Vital Signs Temp 98.4 F 02/21/22 03:37 Pulse 68 02/21/22 03:37 Resp 15 02/21/22 03:37 BP 137/77 02/21/22 03:37 Pulse Ox 95 02/21/22 03:37 FiO2 Intake & Output 02/20/22 02/21/22 02/21/22 18:59 06:59 18:59 Intake Total 450 89.036 Output Total 500 Balance -50 89.036 Weight 102.5 kg 103.6 kg Intake: IV 450 Intake, IV Titration 89.036 Amount Heparin Sod,Pork in 0.45% 89.036 NaCl 25,000 unit In 0.45 % NaCl 1 250ml.bag @ 9.76 UNITS/KG/HR 10.004 mls/ hr IV .Q24H [facility] Rx#: [id number] Output: Urine 500 Other: # Voids 1 - Exam CONSTITUTIONAL: Appears comfortable, cooperative, no acute distress RESPIRATORY: Lungs sounds diminished bilaterally. Respirations even, nonlabored. Currently on room air with oxygen saturation 95%. Able to achieve 1250 mL on incentive spirometry. Strong cough. CARDIOVASCULAR: S1, S2 present. Regular rate and rhythm, sinus rhythm on telemetry. Palpable peripheral pulses bilaterally. No edema present. No calf pain or tenderness noted. GASTROINTESTINAL: Abdomen soft, nontender, nondistended. Active bowel sounds present 4 quadrants. Tolerating diet. GENITOURINARY: Continues to void INTEGUMENTARY: Skin is warm and dry with evidence of good perfusion. NEUROLOGIC: Cranial nerves II through XII intact MUSKULOSKELETAL: Able to move all extremities, strength equal bilaterally, gait normal PSYCHIATRIC: Alert and oriented to person place and time, appropriate affect, intact judgment and insight - Labs CBC & Chem 7: 02/20/22 10:08 02/20/22 15:04 Labs: Abnormal Lab Results - Last 24 Hours (Table) 02/20/22 02/20/22 02/20/22 Range/Units 10:08 14:02 15:04 APTT 34.3 H (22.0-30.0) sec Chloride 109 H (98-107) mmol/L Glucose 101 H (74-99) mg/dL HDL Cholesterol (40.00-60.00) mg/dL Urine Blood Trace H (Negative) Urine Mucus Rare H (None) /hpf 02/20/22 02/21/22 Range/Units 15:04 03:47 APTT 37.1 H (22.0-30.0) sec Chloride 111 H (98-107) mmol/L Glucose (74-99) mg/dL HDL Cholesterol 37.20 L (40.00-60.00) mg/dL Urine Blood (Negative) Urine Mucus (None) /hpf Microbiology - Last 24 Hours (Table) 02/20/22 15:04 Nasal Screen MRSA/MSSA - Preliminary Nasal Swab - Imaging and Cardiology Chest x-ray: report reviewed, image reviewed Carotid Doppler report, vein mapping report reviewed Assessment and Plan Assessment: 1. 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 Hypertension 3. Hyperlipidemia, cholesterol 182, LDL 122 4. SVT 5. Left internal carotid artery stenosis 6. Obesity 7. Never smoker, preoperative FEV1 72% of predicted 8. Remains unvaccinated against Covid 9. Family history of coronary artery disease Plan: 1. Continue to maximize medical management with aspirin, statin, beta ena, IV heparin 2. Will review films today with Dr. Gonzalez and discuss with the patient 3. Will calculate STS risk score and discuss with the patient 4. Encourage incentive spirometry use 5. Medical management of other comorbidities per primary care, cardiology 6. More recommendations to follow regarding timing of surgery
[2022-02-21] MEDS: ATORVASTATIN 80 MG TAB PO SCH (08:49)
[2022-02-21] MEDS: ASPIRIN 81 MG PO SCH ×2 (08:49→20:21)
[2022-02-21] MEDS: METOPROLOL SUCCINATE (ER) 25 MG TAB.ER.24H PO SCH (08:49)
[2022-02-21] MEDS: amLODIPine 5 MG TAB PO SCH (08:49)
[2022-02-21] MEDS: ISOSORBIDE MONONITRATE ER 15 MG TAB PO SCH (08:49)
[2022-02-21] MEDS ORDERED: METOPROLOL SUCCINATE (ER) 25 MG TAB.ER.24H PO SCH (09:00)
[2022-02-21] MEDS ORDERED: ISOSORBIDE MONONITRATE ER 30 MG TAB.ER.24H PO SCH (09:00)
--- NOTE | 2022-02-21 12:38 | P.CNPUL ---
History of Present Illness Consult date: 02/21/22 Requesting physician: Toi Guidry Reason for consult: chest pain, other Chief complaint: ASHD. History of present illness: Pulmonary and critical care consult dated 02/21/2022. This is a patient who had a recent heart catheterization, showing a critical and complex lesion involving the distal left main coronary artery, also, the ostial left circumflex, and ostial LAD. The lesions appear to be in the range of 80- 90%, and the patient was also noted to have elevated left ventricular end-diast olic filling pressures. The patient is currently being evaluated by cardiothoracic surgery for possible bypass grafting. We will reassess to see the patient preoperatively, and evaluate her lung function. The patient is a lifelong nonsmoker. She has no history of lung disease. Based on her FEV1, and her MVV, she was in the low operative risk range. Outpatient medications included amlodipine, aspirin, metoprolol, lisinopril, zinc, vitamin D3, ascorbic acid, lactulose, and indoor. Her only major medical problem is hypertension. She does have a history of previous coronavirus infection and was seen by my partner in July 2021. CBC is completely normal. PTT is 39.7. Sodium 141, potassium 3.7, chlorides 111, CO2 24, BUN 12, creatinine 0.63. Cholesterol was 182. Urine was negative. Testing for coronavirus was negative. Chest x-ray shows mild interstitial edema. Currently she is on room air. Review of Systems REVIEW OF SYSTEMS: CONSTITUTIONAL: [Negative.] NEUROLOGIC: [ Negative.] HEENT: [ Negative.] CARDIAC: Chest pain. PULMONARY: [Negative.] GI: [Negative.] : [Negative.] RHEUMATOLOGIC: [ Negative.] IMMUNOLOGIC: [ Negative.] ENDOCRINE: [Negative. ] DERMATOLOGIC: [Negative.] Past Medical History Past Medical History: Fibromyalgia, Hyperlipidemia, Hypertension, Osteoarthritis (OA), Supraventricular Tachycardia (SVT) Additional Past Medical History / Comment(s): urinary incontinence-wears pad, past MRI should ?stroke, severe left internal carotid artery stenosis followed by Dr. Fitzegrald, frequent constipation History of Any Multi-Drug Resistant Organisms: None Reported Past Surgical History: Appendectomy, Hysterectomy, Joint Replacement, Orthopedic Surgery Additional Past Surgical History / Comment(s): left knee replacement, HEMORROIDECTOMY, carmita cataracts removed, surg. for glaucoma right eye Past Anesthesia/Blood Transfusion Reactions: No Reported Reaction Smoking Status: Never smoker Past Alcohol Use History: None Reported Past Drug Use History: None Reported - Past Family History Mother Family Medical History: Coronary Artery Disease (CAD) Additional Family Medical History / Comment(s): HAD STENTS Brother(s) Family Medical History: Myocardial Infarction ([place]) Additional Family Medical History / Comment(s): CABG Sister(s) Family Medical History: Cancer Additional Family Medical History / Comment(s): colon cancer Father Family Medical History: Coronary Artery Disease (CAD) Additional Family Medical History / Comment(s): HAD STENTS Medications and Allergies Home Medications Medication Instructions Recorded Confirmed Type Aspirin EC [Ecotrin Low Dose] 81 mg PO BID 10/26/20 02/20/22 History Metoprolol Succinate (ER) [Toprol 25 mg PO DAILY 08/01/21 02/20/22 History XL] amLODIPine [Norvasc] 5 mg PO DAILY 08/01/21 02/20/22 History lisinopriL 30 mg PO HS 08/01/21 02/20/22 History Ascorbic Acid [Vitamin C] 1,000 mg PO DAILY tab 08/03/21 02/20/22 Rx Cholecalciferol [Vitamin D3 (25 50 mcg PO DAILY tablet 08/03/21 02/20/22 Rx Mcg = 1000 Iu)] Zinc Sulfate [Orazinc] 220 mg PO DAILY cap 08/03/21 02/20/22 Rx Isosorbide Mononitrate ER [Imdur] 30 mg PO DAILY 02/18/22 02/18/22 History Lactulose 1 - 2 tbsp PO DIRECTED PRN 02/18/22 02/18/22 History Allergies Allergy/AdvReac Type Severity Reaction Status Date / Time No Known Allergies Allergy Verified 02/20/22 10:40 Physical Exam Osteopathic Statement: *. No significant issues noted on an osteopathic structural exam other than those noted in the History and Physical/Consult. Vitals: Vital Signs Temp Pulse Resp BP BP Pulse Ox 02/21/22 11:56 97.4 F L 68 128/80 96 02/21/22 08:00 96.4 F L 79 18 132/63 95 02/21/22 03:37 98.4 F 68 15 137/77 95 02/21/22 01:24 18 02/21/22 00:00 98 F 72 18 147/76 95 02/20/22 20:00 75 02/20/22 19:23 97.7 F 75 16 133/70 96 02/20/22 17:13 95 16 135/77 95 02/20/22 16:31 77 16 184/84 98 02/20/22 15:09 82 16 155/67 92 L 02/20/22 14:25 76 16 160/78 92 L 02/20/22 13:55 72 16 160/74 94 L 02/20/22 13:40 74 16 162/74 93 L 02/20/22 13:25 80 16 159/84 94 L 02/20/22 13:10 74 16 151/78 94 L Intake and Output 02/20/22 02/21/22 02/21/22 22:59 06:59 14:59 Intake Total 89.036 240 Balance 89.036 240 Intake: Intake, IV Titration 89.036 Amount Heparin Sod,Pork in 0.45% 89.036 NaCl 25,000 unit In 0.45 % NaCl 1 250ml.bag @ 9.76 UNITS/KG/HR 10.004 mls/ hr IV .Q24H [facility] Rx#: [id number] Oral 240 Other: # Voids 1 Weight 102.5 kg 103.6 kg No acute distress, oriented 3. Room air saturation 96%. HEENT examination is grossly unremarkable. Neck supple. Full range of motion. No adenopathy thyromegaly or neck vein distention. Cardiovascular examination reveals regular rhythm rate. S1-S2 normal. No S3 or S4. No discernible murmur noted. Heart rate 60 bpm. Lungs reveal clear breath sounds. Breath sounds are equal bilaterally. No adventitious lung sounds including wheezes rhonchi or crackles. Abdomen soft bowel sounds are heard. No masses or tenderness. Extremities are intact. No cyanosis clubbing or edema. Skin is without rash or lesion. Neurologic examination is brief but nonfocal. Results - Laboratory Findings CBC and BMP: 02/20/22 10:08 02/20/22 15:04 PT/INR, D-dimer PT 10.7 sec (9.0-12.0) 02/20/22 15:04 INR 1.0 (<1.2) 02/20/22 15:04 Abnormal lab findings: Abnormal Labs 02/20/22 02/20/22 02/20/22 10:08 14:02 15:04 APTT 34.3 H Chloride 109 H Glucose 101 H HDL Cholesterol Urine Blood Trace H Urine Mucus Rare H 02/20/22 02/21/22 02/21/22 15:04 03:47 10:04 APTT 37.1 H 39.7 H Chloride 111 H Glucose HDL Cholesterol 37.20 L Urine Blood Urine Mucus - Diagnostic Findings Chest x-ray: image reviewed Assessment and Plan Assessment: Symptomatic coronary disease, with anticipated bypass grafting, over the next 2- 3 days. History of hypertension. No history of any lung disease, and patient at low increased operative risk based on lung function. Prior history of coronavirus infection, July 2021. Plan: Plan dated 02/21/2022. The patient is seen and evaluated. Labs, x-rays, and medications are reviewed. PFT's are also reviewed. Based on the FEV1, and the MVV, the patient's at low increased operative risk. The FEV1 was 1.72 L which is 72% of predicted. The MVV was 64.5 L/m. We will continue to follow the patient make recommendations where appropriate. Prognosis is thought to be generally good. Time with Patient: Greater than 30
--- NOTE | 2022-02-21 14:45 | P.PN ---
Subjective Progress Note Date: 02/21/22 This is a 76-year-old female who has been experiencing chest pains and had a positive stress test, had a cardiac catheterization and was found to have complex left main disease involving the ostium of the circumflex and also LAD. Patient is seen by surgeons and is being scheduled for open-heart surgery next week. Patient seemed to be clinically stable. Denies any active chest pain, shortness of breath or dizziness. Her puncture site in the right wrist seem to be healing well. Lungs are clear. Heart is regular. No JVD or peripheral edema. Seen by pulmonology also will continue current medical therapy Objective - Vital Signs Vital signs: Vital Signs Temp 97.4 F L 02/21/22 11:56 Pulse 68 02/21/22 11:56 Resp 18 02/21/22 08:00 BP 128/80 02/21/22 11:56 Pulse Ox 96 02/21/22 11:56 FiO2 Intake & Output 02/20/22 02/21/22 02/21/22 18:59 06:59 18:59 Intake Total 450 89.036 600 Output Total 500 Balance -50 89.036 600 Weight 102.5 kg 103.6 kg Intake: IV 450 Intake, IV Titration 89.036 Amount Heparin Sod,Pork in 0.45% 89.036 NaCl 25,000 unit In 0.45 % NaCl 1 250ml.bag @ 9.76 UNITS/KG/HR 10.004 mls/ hr IV .Q24H [facility] Rx#: [id number] Oral 600 Output: Urine 500 Other: # Voids 1 1 - Exam GENERAL EXAM: Patient is alert and oriented and doesn't appear to be in any acute distress HEENT: Normocephalic. Normal reaction of pupils, equal size, normal range of extraocular motion. No erythema or exudates in the throat. NECK: No masses, no nuchal rigidity. CHEST: No chest wall deformity. LUNGS: Equal air entry with no crackles or wheeze. HEART: S1 and S2 normal with no audible mumurs or gallops. Regular rhythm, femorals equal on both sides.. ABDOMEN: No hepatosplenomegaly, normal bowel sounds, no guarding or rigidity. SKIN: No rashes CENTRAL NERVOUS SYSTEM: No focal deficits. EXTREMITIES: No cyanosis, clubbing or edema. Right wrist: The puncture site seemed to be healing well - Labs CBC & Chem 7: 02/20/22 10:08 02/20/22 15:04 Labs: Abnormal Lab Results - Last 24 Hours (Table) 02/20/22 02/20/22 02/20/22 Range/Units 10:08 15:04 15:04 APTT 34.3 H (22.0-30.0) sec Chloride 109 H 111 H (98-107) mmol/L Glucose 101 H (74-99) mg/dL HDL Cholesterol 37.20 L (40.00-60.00) mg/dL 02/21/22 02/21/22 Range/Units 03:47 10:04 APTT 37.1 H 39.7 H (22.0-30.0) sec Chloride (98-107) mmol/L Glucose (74-99) mg/dL HDL Cholesterol (40.00-60.00) mg/dL Microbiology - Last 24 Hours (Table) 02/20/22 15:04 Nasal Screen MRSA/MSSA - Preliminary Nasal Swab Assessment and Plan (1) CAD (coronary artery disease) Current Visit: Yes Status: Acute Code(s): I25.10 - ATHSCL HEART DISEASE OF N ATIVE CORONARY ARTERY W/O ANG PCTRS SNOMED Code(s): 27163041 (2) Hypertension Current Visit: Yes Status: Acute Code(s): I10 - ESSENTIAL (PRIMARY) HYPERTENSION SNOMED Code(s): 37368694 (3) Accelerated hypertension Current Visit: No Status: Acute Code(s): I10 - ESSENTIAL (PRIMARY) HYPERTENSION SNOMED Code(s): 86910231 Plan: Patient is clinically stable. Slated to have bypass surgery next week
--- NOTE | 2022-02-21 15:32 | CA ---
Transthoracic Echo Report Name: Venus Keane Age: 76 Gender: F : 1945 Exam Date: 02/20/2022 13:50 Exam Location: [facility] Ht (in): 67 Wt (lb): 225 Ordering Physician: Ellen Delgado Attending/Referring Phys: Sawmilling Operator Bri Alcaraz RDCS Procedure CPT: Indications: preop cardiac surgery Cardiac Hx: Technical Quality: Fair Contrast 1: Total Dose (mL): Contrast 2: Total Dose (mL): MEASUREMENTS (Male / Female) Normal Values 2D ECHO LV Diastolic Diameter PLAX 5.1 cm 4.2 - 5.9 / 3.9 - 5.3 cm LV Systolic Diameter PLAX 3.5 cm IVS Diastolic Thickness 1.2 cm 0.6 - 1.0 / 0.6 - 0.9 cm LVPW Diastolic Thickness 1.3 cm 0.6 - 1.0 / 0.6 - 0.9 cm LV Relative Wall Thickness 0.5 RV Internal Dim ED PLAX 2.9 cm LA Systolic Diameter LX 3.9 cm 3.0 - 4.0 / 2.7 - 3.8 cm LV Diastolic Volume MOD BP 89.1 cm??? 67 - 155 / 56 - 104 cm??? LV Systolic Volume MOD BP 32.3 cm??? 22 - 58 / 19 - 49 cm??? LV Ejection Fraction MOD BP 63.7 % >= 55 % LV Diastolic Volume MOD 4C 88.2 cm??? LV Systolic Volume MOD 4C 24.5 cm??? LV Ejection Fraction MOD 4C 72.2 % LV Diastolic Length 4C 8.7 cm LV Systolic Length 4C 7.2 cm LV Diastolic Volume MOD 2C 88.9 cm??? LV Systolic Volume MOD 2C 43.5 cm??? LV Ejection Fraction MOD 2C 51.1 % LV Diastolic Length 2C 8.2 cm LV Systolic Length 2C 7.2 cm LA Volume 62.4 cm??? 18 - 58 / 22 - 52 cm??? M-MODE Aortic Root Diameter MM 3.2 cm MV E Point Septal Separation 0.6 cm AV Cusp Separation MM 2.0 cm DOPPLER AV Peak Velocity 145.8 cm/s AV Peak Gradient 8.5 mmHg MV Area PHT 2.6 cm??? Mitral E Point Velocity 115.4 cm/s Mitral A Point Velocity 95.3 cm/s Mitral E to A Ratio 1.2 MV Deceleration Time 293.1 ms MV E' Velocity 6.7 cm/s Mitral E to MV E' Ratio 17.3 TR Peak Velocity 300.6 cm/s TR Peak Gradient 36.2 mmHg Right Ventricular Systolic Press 41.2 mmHg FINDINGS Left Ventricle Left ventricular ejection fraction is estimated at 50. Left ventricular cavity size normal. Mild concentric left ventricular hypertrophy. Mild lateral wall hypokinesia. Contrast study may be constricted for further evaluation Right Ventricle Normal right ventricular size and function. Mild pulmonary hypertension. Right Atrium Normal right atrial size. Left Atrium Mildly increased left atrial diameter. Mildly increased left atrial volume. No evidence for an atrial septal defect. Mitral Valve Mitral valve thickened. Mitral annular calcification. Jhcz-[id number]-izhyqbbd mitral regurgitation. Aortic Valve Trileaflet aortic valve. No aortic valve stenosis or regurgitation. Focal thickening of the aortic valve cusps. Tricuspid Valve Mild tricuspid regurgitation. Pulmonic Valve Mild pulmonic regurgitation. Pericardium Normal pericardium. No pericardial effusion. Aorta Normal size aortic root and proximal ascending aorta. CONCLUSIONS #1. Left ventricle size is normal with an ejection fraction about 50-55%. Suggestive of mild hypokinesis of the lateral wall. #2. Mild to moderate mitral regurgitation #3. Mild tricuspid regurgitation Previewed by: Dr. Shabnam Navarro MD (Electronically Signed) Final Date: 21 February 2022 15:31
[2022-02-21] MEDS ORDERED: LACTULOSE 20 GM/30 ML CUP PO PRN (18:05)
[2022-02-21] MEDS: lisinopriL 10 MG TAB PO SCH (20:21)
[2022-02-22] MEDS: SODIUM CHLORIDE 0.9% 1,000 ML in EMPTY BAG 1 BAG IV SCH ×2 (00:11→07:31)
[2022-02-22] MEDS: SODIUM CHLORIDE 0.9% 1,000 ML IV SCH ×2 (07:27→17:36)
[2022-02-22] MEDS: HEPARIN SOD,PORK IN 0.45% NACL 25,000 UNIT in 0.45% NACL 1 250ML.BAG IV SCH ×2 (07:27→12:52)
--- NOTE | 2022-02-22 08:36 | P.PN ---
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 Previous medical history of hypertension, hyperlipidemia, SVT, left internal carotid artery stenosis, obesity, never smoker, remains unvaccinated against Covid, family history of coronary artery disease The patient was seen and examined sitting up in bed of the cardiac stepdown unit eating breakfast. She does continue to complain of some intermittent right- sided right arm pain although she says it is not really pain, she is "just aware something is there". She remains in sinus rhythm and hemodynamically stable. Currently on IV heparin. STS risk score was calculated, patient is felt to be low risk for surgery. Dr. Gonzalez with patient yesterday, recommends surgery, anticipates surgical myocardial revascularization with left internal mammary artery, endoscopic vein harvest, left atrial appendage ligation tomorrow afternoon with Dr. Gonzalez. The patient is agreeable and has no new questions. Dr. Guidry was made aware as well. Objective - Vital Signs Vital signs: Vital Signs Temp 98 F 02/22/22 03:57 Pulse 73 02/22/22 03:57 Resp 16 02/22/22 03:57 BP 152/83 02/22/22 03:57 Pulse Ox 96 02/22/22 03:57 FiO2 Intake & Output 02/21/22 02/22/22 02/22/22 18:59 06:59 18:59 Intake Total 1389.982 Balance 1389.982 Intake: Intake, IV Titration 429.982 Amount Heparin Sod,Pork in 0.45% 129.982 NaCl 25,000 unit In 0.45 % NaCl 1 250ml.bag @ 9.76 UNITS/KG/HR 10.004 mls/ hr IV .Q24H [facility] Rx#: [id number] Sodium Chloride 0.9% 1, 300 000 ml @ 75 mls/hr IV . [id number] [facility] Rx#:[id number] Oral 960 Other: # Voids 1 1 - Exam CONSTITUTIONAL: Appears comfortable, cooperative, no acute distress RESPIRATORY: Lungs sounds diminished bilaterally. Respirations even, nonlabored. Currently on room air with oxygen saturation 96%. Able to achieve 2000 mL on incentive spirometry. Strong cough. CARDIOVASCULAR: S1, S2 present. Regular rate and rhythm, sinus rhythm on telemetry. Palpable peripheral pulses bilaterally. No edema present. No calf pain or tenderness noted. GASTROINTESTINAL: Abdomen soft, nontender, nondistended. Active bowel sounds present 4 quadrants. Tolerating diet. GENITOURINARY: Continues to void INTEGUMENTARY: Skin is warm and dry with evidence of good perfusion. NEUROLOGIC: Cranial nerves II through XII intact MUSKULOSKELETAL: Able to move all extremities, strength equal bilaterally, gait normal PSYCHIATRIC: Alert and oriented to person place and time, appropriate affect, intact judgment and insight - Allied health notes Allied health notes reviewed: nursing - Labs CBC & Chem 7: 02/20/22 10:08 02/20/22 15:04 Labs: Abnormal Lab Results - Last 24 Hours (Table) 02/21/22 02/21/22 02/22/22 Range/Units 10:04 21:36 05:19 APTT 39.7 H 52.0 H 60.2 H (22.0-30.0) sec Microbiology - Last 24 Hours (Table) 02/20/22 15:04 Nasal Screen MRSA/MSSA - Final Nasal Swab Staphylococcus aureus,Not MRSA Assessment and Plan Assessment: 1. 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 Hypertension 3. Hyperlipidemia, cholesterol 182, LDL 122 4. SVT 5. Left internal carotid artery stenosis 6. Obesity 7. Never smoker, preoperative FEV1 72% of predicted 8. Remains unvaccinated against Covid 9. Family history of coronary artery disease 10. Nasal swab positive for MSSA 11. Preserved LV function with mild to moderate mitral regurgitation on transthoracic echocardiogram Plan: 1. Continue to maximize medical management with aspirin, statin, beta ena, IV heparin 2. Our plan is for surgical myocardial revascularization with left internal mammary artery, endoscopic vein harvest, left atrial appendage ligation tomorrow afternoon, 02/23/[address] Gonzalez 3. Nothing to eat or drink after midnight 4. Encourage incentive spirometry use 5. Medical management of other comorbidities per primary care, cardiology 6. More recommendations to follow
--- NOTE | 2022-02-22 09:02 | P.PN ---
Subjective Progress Note Date: 02/22/22 This is a 76-year-old female who has been experiencing chest pains and had a positive stress test, had a cardiac catheterization and was found to have complex left main disease involving the ostium of the circumflex and also LAD. Patient is seen by surgeons and is being scheduled for open-heart surgery next week. Patient seemed to be clinically stable. Denies any active chest pain, shortness of breath or dizziness. Her puncture site in the right wrist seem to be healing well. Lungs are clear. Heart is regular. No JVD or peripheral edema. Seen by pulmonology also will continue current medical therapy. 02/22/2022: The patient remains stable. Complaints of some right-sided discomfort which has been stable since admission. No acute changes. Having some issues with bowel movements. No complaints of shortness of breath. No arrhythmias. Patient is seen by cardiovascular surgeon and planning for surgery tomorrow afternoon with the RAMOS graft to the LAD and ligation of the atrial appendage. Lungs are clear. Heart is regular. Continue current medical therapy. Patient is on have IV heparin Objective - Vital Signs Vital signs: Vital Signs Temp 98 F 02/22/22 03:57 Pulse 73 02/22/22 03:57 Resp 16 02/22/22 03:57 BP 152/83 02/22/22 03:57 Pulse Ox 96 02/22/22 03:57 FiO2 Intake & Output 02/21/22 02/22/22 02/22/22 18:59 06:59 18:59 Intake Total 1389.982 Balance 1389.982 Intake: Intake, IV Titration 429.982 Amount Heparin Sod,Pork in 0.45% 129.982 NaCl 25,000 unit In 0.45 % NaCl 1 250ml.bag @ 9.76 UNITS/KG/HR 10.004 mls/ hr IV .Q24H [facility] Rx#: [id number] Sodium Chloride 0.9% 1, 300 000 ml @ 75 mls/hr IV . [id number] [facility] Rx#:[id number] Oral 960 Other: # Voids 1 1 - Exam GENERAL EXAM: Patient is alert and oriented and doesn't appear to be in any acute distress HEENT: Normocephalic. Normal reaction of pupils, equal size, normal range of extraocular motion. No erythema or exudates in the throat. NECK: No masses, no nuchal rigidity. CHEST: No chest wall deformity. LUNGS: Equal air entry with no crackles or wheeze. HEART: S1 and S2 normal with no audible mumurs or gallops. Regular rhythm, femorals equal on both sides.. ABDOMEN: No hepatosplenomegaly, normal bowel sounds, no guarding or rigidity. SKIN: No rashes CENTRAL NERVOUS SYSTEM: No focal deficits. EXTREMITIES: No cyanosis, clubbing or edema. Right wrist: The puncture site seemed to be healing well - Labs CBC & Chem 7: 02/20/22 10:08 02/20/22 15:04 Labs: Abnormal Lab Results - Last 24 Hours (Table) 02/21/22 02/21/22 02/22/22 Range/Units 10:04 21:36 05:19 APTT 39.7 H 52.0 H 60.2 H (22.0-30.0) sec Microbiology - Last 24 Hours (Table) 02/20/22 15:04 Nasal Screen MRSA/MSSA - Final Nasal Swab Staphylococcus aureus,Not MRSA Assessment and Plan (1) CAD (coronary artery disease) Current Visit: Yes Status: Acute Code(s): I25.10 - ATHSCL HEART DISEASE OF [place] CORONARY ARTERY W/O ANG PCTRS SNOMED Code(s): 23216012 (2) Hypertension Current Visit: Yes Status: Acute Code(s): I10 - ESSENTIAL (PRIMARY) HYPERTENSION SNOMED Code(s): 21791579 (3) Accelerated hypertension Current Visit: No Status: Acute Code(s): I10 - ESSENTIAL (PRIMARY) HYPERTENSION SNOMED Code(s): 74156810 Plan: Patient's remains stable. Planned surgery tomorrow. On IV heparin
[2022-02-22] MEDS ORDERED: MD COMMUNICATION TO PHARMACY 1 EACH MISC PO ONE (09:10)
[2022-02-22] MEDS: ATORVASTATIN 80 MG TAB PO SCH (09:18)
[2022-02-22] MEDS: amLODIPine 5 MG TAB PO SCH (09:18)
[2022-02-22] MEDS: METOPROLOL SUCCINATE (ER) 25 MG TAB.ER.24H PO SCH (09:18)
[2022-02-22] MEDS: ASPIRIN 81 MG PO SCH ×2 (09:18→20:31)
[2022-02-22] MEDS: ISOSORBIDE MONONITRATE ER 15 MG TAB PO SCH (09:18)
[2022-02-22] MEDS: MUPIROCIN 2% OINT 22 GM TUBE NASAL SCH ×2 (09:19→20:31)
[2022-02-22 09:27] LABS: Basophils % (A) 1 %; Eosinophils # (A) 0.2 k/uL (0-0.7); Eosinophils % (A) 3 %; HCT 39.1 % (34.0-46.0); HGB 12.8 gm/dL (11.4-16.0); Hypochromasia Slight; Lymphocytes # (A) 1.2 k/uL (1.0-4.8); Lymphocytes % (A) 20 %; MCH 29.9 pg (25.0-35.0); MCHC 32.8 g/dL (31.0-37.0); MCV 91.3 fL (80.0-100.0); Mean Platelet Volume 10.2; Monocytes # (A) 0.3 k/uL (0-1.0); Monocytes % (A) 6 %; Neutrophils # (A) 4.2 k/uL (1.3-7.7); Neutrophils % (A) 70 %; Platelet Count 301 k/uL (150-450); RBC 4.28 m/uL (3.80-5.40); RDW 14.1 % (11.5-15.5); WBC 6.1 k/uL (3.8-10.6)
[2022-02-22 09:34] LABS: INR 1.1 (<1.2); Prothrombin Time 11.9 sec (9.0-12.0)
[2022-02-22 09:41] LABS: ALT 13 U/L (4-34); AST 19 U/L (14-36); African American GFR (CKD) >90 (>60 ml/min/1.73 sqM); Albumin 3.7 g/dL (3.5-5.0); Alkaline Phosphatase 105 U/L (38-126); Anion Gap 6 mmol/L; Blood Urea Nitrogen 12 mg/dL (7-17); Calcium 8.6 mg/dL (8.4-10.2); Carbon Dioxide 24 mmol/L (22-30); Chloride 111 mmol/L (98-107); Glucose 101 mg/dL (74-99); Magnesium 2.1 mg/dL (1.6-2.3); Non-African American GFR(CKD) 83 (>60 ml/min/1.73 sqM); Potassium 3.6 mmol/L (3.5-5.1); Sodium 141 mmol/L (137-145); Total Bilirubin 0.3 mg/dL (0.2-1.3); Total Protein 6.2 g/dL (6.3-8.2)
--- NOTE | 2022-02-22 11:00 | P.PN ---
Subjective Progress Note Date: 02/22/22 Principal diagnosis: Coronary disease. Pulmonary and critical care consult dated 02/21/2022. This is a patient who had a recent heart catheterization, showing a critical and complex lesion involving the distal left main coronary artery, also, the ostial left circumflex, and ostial LAD. The lesions appear to be in the range of 80- 90%, and the patient was also noted to have elevated left ventricular end- diastolic filling pressures. The patient is currently being evaluated by cardiothoracic surgery for possible bypass grafting. We will reassess to see the patient preoperatively, and evaluate her lung function. The patient is a lifelong nonsmoker. She has no history of lung disease. Based on her FEV1, and her MVV, she was in the low operative risk range. Outpatient medications included amlodipine, aspirin, metoprolol, lisinopril, zinc, vitamin D3, ascorbic acid, lactulose, and indoor. Her only major medical problem is hypertension. She does have a history of previous coronavirus infection and was seen by my partner in July 2021. CBC is completely normal. PTT is 39.7. Sodium 141, potassium 3.7, chlorides 111, CO2 24, BUN 12, creatinine 0.63. Cholesterol was 182. Urine was negative. Testing for coronavirus was negative. Chest x-ray shows mild interstitial edema. Currently she is on room air. Progress note dated 02/22/2022. 76-year-old female we saw yesterday in consultation. The patient has significant coronary disease, involving the left main coronary artery. The patient is apparently going to have open heart surgery one day this week. The exact day has not been decided yet. Clinically, she's. Stable. She is on room air. She is a lifelong nonsmoker. Lung function would suggest that she's at a very low increased operative risk based on her FEV1 and MVV. Labs today show white count of 6.1, with a normal hemoglobin, hematocrit, and platelet count. The patient's PTT is 60.2. Sodium 141, potassium 3.6, chlorides 111, CO2 24, BUN 12, creatinine 0.72. Objective - Vital Signs Vital signs: Vital Signs Temp 98.4 F 02/22/22 08:00 Pulse 79 02/22/22 08:00 Resp 16 02/22/22 08:00 BP 138/84 02/22/22 08:00 Pulse Ox 97 02/22/22 08:00 FiO2 Intake & Output 02/21/22 02/22/22 02/22/22 18:59 06:59 18:59 Intake Total 1389.982 Balance 1389.982 Intake: Intake, IV Titration 429.982 Amount Heparin Sod,Pork in 0.45% 129.982 NaCl 25,000 unit In 0.45 % NaCl 1 250ml.bag @ 9.76 UNITS/KG/HR 10.004 mls/ hr IV .Q24H [facility] Rx#: [id number] Sodium Chloride 0.9% 1, 300 000 ml @ 75 mls/hr IV . [id number] [facility] Rx#:[id number] Oral 960 Other: # Voids 1 1 - Exam No acute distress, oriented 3. Room air saturation 97 %. HEENT examination is grossly unremarkable. Neck supple. Full range of motion. No adenopathy thyromegaly or neck vein distention. Cardiovascular examination reveals regular rhythm rate. S1-S2 normal. No S3 or S4. No discernible murmur noted. Heart rate 71 bpm. Lungs reveal clear breath sounds. Breath sounds are equal bilaterally. No adventitious lung sounds including wheezes rhonchi or crackles. Abdomen soft bowel sounds are heard. No masses or tenderness. Extremities are intact. No cyanosis clubbing or edema. Skin is without rash or lesion. Neurologic examination is brief but nonfocal. - Labs CBC & Chem 7: 02/22/22 05:19 02/22/22 05:19 Labs: Abnormal Lab Results - Last 24 Hours (Table) 02/21/22 02/22/22 02/22/22 Range/Units 21:36 05:19 05:19 APTT 52.0 H 60.2 H (22.0-30.0) sec Chloride 111 H (98-107) mmol/L Glucose 101 H (74-99) mg/dL Total Protein 6.2 L (6.3-8.2) g/dL Microbiology - Last 24 Hours (Table) 02/20/22 15:04 Nasal Screen MRSA/MSSA - Final Nasal Swab Staphylococcus aureus,Not MRSA Assessment and Plan Assessment: Symptomatic coronary disease, with anticipated bypass grafting, over the next 2- 3 days. History of hypertension. No history of any lung disease, and patient at low increased operative risk based on lung function. Prior history of coronavirus infection, July 2021. Plan: Plan dated 02/21/2022. The patient is seen and evaluated. Labs, x-rays, and medications are reviewed. PFT's are also reviewed. Based on the FEV1, and the MVV, the patient's at low increased operative risk. The FEV1 was 1.72 L which is 72% of predicted. The MVV was 64.5 L/m. We will continue to follow the patient make recommendations where appropriate. Prognosis is thought to be generally good. Plan dated 02/22/2022. The patient will have open heart surgery one day this week. The exact day has not yet been decided. The patient remains on room air. We will continue to follow and make recommendations where appropriate. Prognosis is guarded. Pulmonary function have been reviewed. FEV1 is 1.72 L, and MVV is 64.5 L/m. Time with Patient: Less than 30
--- NOTE | 2022-02-22 11:34 | P.CONS ---
History of Present Illness - History of Present Illness This is a pleasant 76 years old female with past medical history of Fibromyal romero, Hyperlipidemia, Hypertension, Osteoarthritis , Supraventricular Tachycardia ,urinary incontinence-wears pad, severe left internal carotid artery stenosis followed by Dr. Fitzgerald, frequent constipation, she was admitted under cardiology service for right arm pain, chest pain and back pain for the last 3 weeks, where she underwent cardiac cath and showing critical and complex lesion involving the distal left main coronary arteries and also involving the ostial left circumflex and the distal LAD with the stenotic range is 80-90% with increase in LVEDP , Patient will need bypass procedure to open his coronary arteries. Currently she denies chest pain or dyspnea. No incontinence of urine or bowel. No fever Patient is hemodynamically stable Labs including CBC, INR, BMP and liver enzymes are unremarkable. TSH is 1.6. Urine analysis showing trace blood. coronavirus not detected. Hepatitis panel is negative Chest x-ray: Minimal interstitial edema noted Carotid duplex: No significant stenosis Echocardiogram showing ejection fraction of 50-55% with [id number] mitral regurgitation and mild tricuspid regurgitation Patient currently on heparin drip, aspirin 81 mg twice a day and normal saline at 75 mL/h as well as Lipitor and metoprolol However patient this morning she is asymptomatic she denies chest pain or dyspnea or abdominal pain. No diarrhea or vomiting or dysuria. No headache or weakness or numbness. Review of Systems CONSTITUTIONAL: No fever, no malaise, no fatigue. HEENT: No recent visual problems or hearing problems. Denied any sore throat. CARDIOVASCULAR: No orthopnea, PND, no palpitations, no syncope. PULMONARY: No shortness of breath, no cough, no hemoptysis. GASTROINTESTINAL: No diarrhea, no nausea, no vomiting, no abdominal pain. Normoactive bowel sounds. NEUROLOGICAL: No headaches, no weakness, no numbness. HEMATOLOGICAL: Denies any bleeding or petechiae. GENITOURINARY: Denies any burning micturition, frequency, or urgency. MUSCULOSKELETAL/RHEUMATOLOGICAL: Denies any joint pain, swelling, or any muscle pain. ENDOCRINE: Denies any polyuria or polydipsia. Past Medical History Past Medical History: Fibromyalgia, Hyperlipidemia, Hypertension, Osteoarthritis (OA), Supraventricular Tachycardia (SVT) Additional Past Medical History / Comment(s): urinary incontinence-wears pad, past MRI should ?stroke, severe left internal carotid artery stenosis followed by Dr. Fitzgerald, frequent constipation History of Any Multi-Drug Resistant Organisms: None Reported Past Surgical History: Appendectomy, Hysterectomy, Joint Replacement, Orthopedic Surgery Additional Past Surgical History / Comment(s): left knee replacement, HEMORROIDECTOMY, carmita cataracts removed, surg. for glaucoma right eye Past Anesthesia/Blood Transfusion Reactions: No Reported Reaction Smoking Status: Never smoker Past Alcohol Use History: None Reported Past Drug Use History: None Reported - Past Family History Mother Family Medical History: Coronary Artery Disease (CAD) Additional Family Medical History / Comment(s): HAD STENTS Brother(s) Family Medical History: Myocardial Infarction (OK) Additional Family Medical History / Comment(s): CABG Sister(s) Family Medical History: Cancer Additional Family Medical History / Comment(s): colon cancer Father Family Medical History: Coronary Artery Disease (CAD) Additional Family Medical History / Comment(s): HAD STENTS Medications and Allergies Home Medications Medication Instructions Recorded Confirmed Type Aspirin EC [Ecotrin Low Dose] 81 mg PO BID 10/26/20 02/20/22 History Metoprolol Succinate (ER) [Toprol 25 mg PO DAILY 08/01/21 02/20/22 History XL] amLODIPine [Norvasc] 5 mg PO DAILY 08/01/21 02/20/22 History lisinopriL 30 mg PO HS 08/01/21 02/20/22 History Ascorbic Acid [Vitamin C] 1,000 mg PO DAILY tab 08/03/21 02/20/22 Rx Cholecalciferol [Vitamin D3 (25 50 mcg PO DAILY tablet 08/03/21 02/20/22 Rx Mcg = 1000 Iu)] Zinc Sulfate [Orazinc] 220 mg PO DAILY cap 08/03/21 02/20/22 Rx Isosorbide Mononitrate ER [Imdur] 30 mg PO DAILY 02/18/22 02/18/22 History Lactulose 1 - 2 tbsp PO DIRECTED PRN 02/18/22 02/18/22 History Allergies Allergy/AdvReac Type Severity Reaction Status Date / Time No Known Allergies Allergy Verified 02/20/22 10:40 Physical Exam Vitals: Vital Signs Temp Pulse Resp BP Pulse Ox 02/22/22 03:57 98 F 73 16 152/83 96 02/21/22 23:25 98.4 F 72 19 137/72 95 02/21/22 19:37 98.3 F 79 18 167/91 96 02/21/22 16:00 97.9 F 74 117/73 97 02/21/22 14:00 68 18 02/21/22 11:56 97.4 F L 68 128/80 96 Intake and Output 02/21/22 02/22/22 02/22/22 22:59 06:59 14:59 Intake Total 489.982 Balance 489.982 Intake: Intake, IV Titration 129.982 Amount Heparin Sod,Pork in 0.45% 129.982 NaCl 25,000 unit In 0.45 % NaCl 1 250ml.bag @ 9.76 UNITS/KG/HR 10.004 mls/ hr IV .Q24H [facility] Rx#: [id number] Oral 360 Other: # Voids 1 GENERAL: The patient is alert and oriented x3, not in any acute distress. Well developed, well nourished. HEENT: Pupils are round and equally reacting to light. EOMI. No scleral icterus. No conjunctival pallor. Normocephalic, atraumatic. No pharyngeal erythema. No thyromegaly. CARDIOVASCULAR: S1 and S2 present. No murmurs, rubs, or gallops. PULMONARY: Chest is clear to auscultation, no wheezing or crackles. ABDOMEN: Soft, nontender, nondistended, normoactive bowel sounds. No palpable organomegaly. MUSCULOSKELETAL: No joint swelling or deformity. EXTREMITIES: No cyanosis, clubbing, or pedal edema. NEUROLOGICAL: Gross neurological examination did not reveal any focal deficits. SKIN: No rashes. No petechiae Results CBC & Chem 7: 02/22/22 05:19 02/22/22 05:19 Labs: Abnormal Lab Results - Last 24 Hours (Table) 02/21/22 02/21/22 02/22/22 Range/Units 10:04 21:36 05:19 APTT 39.7 H 52.0 H 60.2 H (22.0-30.0) sec Microbiology - Last 24 Hours (Table) 02/20/22 15:04 Nasal Screen MRSA/MSSA - Final Nasal Swab Staphylococcus aureus,Not MRSA Assessment and Plan Assessment: Critical coronary artery lesion involving the left main stem and left circumflex and distal LAD were in the range of 80-90% requiring bypass procedure Hypertension Hyperlipidemia History of fibromyalgia History of osteoarthritis Plan: this is a pleasant 76 years old female with critical coronary artery disease elaine l need to go for CABG Continue with heparin and aspirin Continue with Lipitor, metoprolol Cardiology primary team of the case Pulmonary and vascular surgery consulted Labs and medication were reviewed.. Continue same treatment. Continue with symptomatic treatment. Resume home medication. Monitor lytes and vitals. DVT and GI prophylaxis. Further recommendations depends on the clinical course of the patient DVT prophylaxis: Subcutaneous heparin GI Prophylaxis: Pepcid Prognosis is guarded
[2022-02-22] MEDS: lisinopriL 10 MG TAB PO SCH (20:31)
[2022-02-23] MEDS ORDERED: PAPAVERINE 360 MG in SODIUM CHLORIDE 0.9% 90 ML IV ONE (05:00)
[2022-02-23] MEDS ORDERED: PROTAMINE SULFATE 10 MG/ML 25 ML VIAL IV ONE (05:00)
[2022-02-23] MEDS ORDERED: CHLORHEXIDINE GLUCONATE 15 ML CUP MUCOUS MEM ONE (05:00)
[2022-02-23] MEDS ORDERED: SODIUM BICARB 8.4% 50 ML SYR (1 MEQ/ML) IV ONE (05:00)
[2022-02-23] MEDS ORDERED: CLEVIDIPINE BUTYRATE 25 MG in EMPTY BAG 1 BAG IV SCH ×2 (05:00→17:33)
[2022-02-23] MEDS ORDERED: MAGNESIUM SULFATE 16.24 MEQ in EMPTY SYRINGE 1 SYR IV ONE (05:00)
[2022-02-23] MEDS ORDERED: ALBUMIN HUMAN 5% 500 ML in EMPTY BAG 1 BAG IVPB ONE ×6 (05:00)
[2022-02-23] MEDS ORDERED: PHENYLEPHRINE 10 MG/ML VIAL IV ONE (05:00)
[2022-02-23] MEDS ORDERED: TRANEXAMIC ACID 2,000 MG in SODIUM CHLORIDE 0.9% 80 ML IV ONE (05:00)
[2022-02-23] MEDS ORDERED: PROTAMINE SULFATE 250 MG in EMPTY BAG 1 BAG IV ONE (05:00)
[2022-02-23] MEDS ORDERED: CALCIUM CHLORIDE 100 MG/ML 10 ML SYRINGE IVP ONE (05:00)
[2022-02-23] MEDS ORDERED: CARDIOPLEGIC SOLN (K+ 16 MEQ/L 1,000 ML with SOD BICARB SYR 8.4% (1 MEQ/ML) 20 ML, LIDO... PERFUSION NR ×3 (05:00)
[2022-02-23] MEDS ORDERED: HEPARIN SODIUM,PORCINE 5,000 UNIT in SODIUM CHLORIDE 0.9% 500 ML 500 ML IV ONE (05:00)
[2022-02-23] MEDS ORDERED: NITROGLYCERIN-D5W PMX 50 MG in DEXTROSE/WATER 1 250ML.BAG IV SCH ×2 (05:00→17:33)
[2022-02-23] MEDS ORDERED: PHENYLEPHRINE 40 MG in SODIUM CHLORIDE 0.9% 250 ML IV ONE (05:00)
[2022-02-23] MEDS ORDERED: ALBUMIN HUMAN 25% 50 ML in EMPTY BAG 1 BAG IVPB ONE (05:00)
[2022-02-23] MEDS ORDERED: HEPARIN SODIUM 1,000 UN/ML (10ML VL) IV ONE (05:00)
[2022-02-23] MEDS ORDERED: NITROGLYCERIN-D5W PMX 25 MG/250 ML BTL IV ONE (05:00)
[2022-02-23] MEDS ORDERED: LACTATED RINGERS 1,000 ML IV SCH (05:00)
[2022-02-23] MEDS ORDERED: INSULIN REGULAR 100 UNIT in SODIUM CHLORIDE 0.9% 100 ML IV SCH (05:00)
[2022-02-23] MEDS ORDERED: MANNITOL 25% 12.5 GM/50 ML VIAL IV ONE ×2 (05:00)
[2022-02-23] MEDS ORDERED: NOREPINEPHRINE 4 MG in SODIUM CHLORIDE 0.9% 250 ML IV SCH (05:00)
[2022-02-23 07:37] LABS: HGB 12.5 gm/dL (11.4-16.0); MCH 28.9 pg (25.0-35.0); MCHC 32.1 g/dL (31.0-37.0); MCV 90.2 fL (80.0-100.0); Mean Platelet Volume 8.7; Platelet Count 260 k/uL (150-450); RBC 4.32 m/uL (3.80-5.40); RDW 13.9 % (11.5-15.5); WBC 6.2 k/uL (3.8-10.6)
[2022-02-23 07:57] LABS: African American GFR (CKD) >90 (>60 ml/min/1.73 sqM); Anion Gap 10 mmol/L; Blood Urea Nitrogen 12 mg/dL (7-17); Calcium 8.9 mg/dL (8.4-10.2); Carbon Dioxide 20 mmol/L (22-30); Chloride 110 mmol/L (98-107); Glucose 112 mg/dL (74-99); Non-African American GFR(CKD) 86 (>60 ml/min/1.73 sqM); Potassium 3.6 mmol/L (3.5-5.1); Sodium 140 mmol/L (137-145)
[2022-02-23] MEDS: ATORVASTATIN 80 MG TAB PO SCH (08:07)
[2022-02-23] MEDS: METOPROLOL SUCCINATE (ER) 25 MG TAB.ER.24H PO SCH (08:07)
[2022-02-23] MEDS: ISOSORBIDE MONONITRATE ER 15 MG TAB PO SCH (08:07)
[2022-02-23] MEDS: ASPIRIN 81 MG PO SCH (08:07)
[2022-02-23] MEDS: MUPIROCIN 2% OINT 22 GM TUBE NASAL SCH ×2 (08:09→21:26)
--- NOTE | 2022-02-23 08:35 | P.PN ---
Subjective Progress Note Date: 02/23/22 PROGRESS NOTE The patient is a 76-year-old female with history of carotid vascular disease who presented with symptoms of progressive chest discomfort and an abnormal MPI. Underwent cardiac catheterization on the and was found to have severe distal left main disease with pexq-do-soqzhyia disease in the RCA. She is scheduled to undergo CABG today. Her echo showed an ejection fraction of 50% with mild lateral wall hypokinesis and inba-yl-wquogewp mitral regurgitation. She's feeling well this morning, denies any chest discomfort or dizziness. She is in sinus mechanism. Scheduled to undergo CABG this afternoon. She continues to be on aspirin, Lipitor 80 mg daily, isosorbide mononitrate 15 mg daily, lisinopril 30 mg daily, metoprolol succinate 25 mg daily PHYSICAL EXAMINATION: Blood pressure 129/70 heart rate 80 LUNGS: Clear to auscultation HEART: Regular rate and rhythm, S1, S2. No S3. systolic murmur at the base ABDOMEN: Soft, nontender, no organomegaly EXTREMETIES: No edema LAB: Potassium 3.6, BUN 12, creatinine 0.68 IMPRESSION: 1. Severe CAD, scheduled for CABG today 2. History of hypertension 3. History of hyperlipidemia 4. History of carotid disease PLAN: 1. Proceed with CABG as scheduled 2. Depending on her postop further recommendations will be made. Objective - Vital Signs Vital signs: Vital Signs Temp 97.6 F 02/23/22 03:22 Pulse 80 02/23/22 03:22 Resp 16 02/23/22 03:22 BP 129/78 02/23/22 03:22 Pulse Ox 96 02/23/22 03:22 FiO2 Intake & Output 02/22/22 02/23/22 02/23/22 18:59 06:59 18:59 Intake Total 80 110 Balance 80 110 Weight 103 kg Intake: IV 5 Invasive Line 3 5 Intake, IV Titration 75 110 Amount Heparin Sodium,Porcine 5, 110 000 unit In Sodium Chloride 0.9% 500 ml 500 ml @ As Directed IV ONCE ONE Rx#:[id number] Sodium Chloride 0.9% 1, 75 000 ml @ 75 mls/hr IV . [id number] [facility] Rx#:[id number] Other: # Voids 2 - Labs CBC & Chem 7: 02/23/22 06:05 02/23/22 06:05 Labs: Abnormal Lab Results - Last 24 Hours (Table) 02/22/22 02/22/22 02/23/22 Range/Units 05:19 09:57 06:05 APTT 55.0 H (22.0-30.0) sec Chloride 111 H (98-107) mmol/L Carbon Dioxide (22-30) mmol/L Glucose 101 H (74-99) mg/dL Total Protein 6.2 L (6.3-8.2) g/dL Crossmatch See Detail 02/23/22 Range/Units 06:05 APTT (22.0-30.0) sec Chloride 110 H (98-107) mmol/L Carbon Dioxide 20 L (22-30) mmol/L Glucose 112 H (74-99) mg/dL Total Protein (6.3-8.2) g/dL Crossmatch
[2022-02-23] MEDS ORDERED: ASPIRIN 325 MG TAB PO ONE (11:00)
[2022-02-23] MEDS ORDERED: METOPROLOL TARTRATE 12.5 MG TAB PO ONE (11:00)
[2022-02-23] MEDS ORDERED: ATORVASTATIN 10 MG TAB PO ONE (11:00)
[2022-02-23] MEDS ORDERED: LACTATED RINGERS 1,000 ML IV ONE ×2 (11:45)
--- NOTE | 2022-02-23 12:27 | P.PN ---
Subjective Progress Note Date: 02/23/22 HISTORY OF PRESENT ILLNESS This is a pleasant 76 years old female with past medical history of Fibromyalg ia, Hyperlipidemia, Hypertension, Osteoarthritis , Supraventricular Tachycardia ,urinary incontinence-wears pad, severe left internal carotid artery stenosis followed by Dr. Fitzgerald, frequent constipation, she was admitted under cardiology service for right arm pain, chest pain and back pain for the last 3 weeks, where she underwent cardiac cath and showing critical and complex lesion involving the distal left main coronary arteries and also involving the ostial left circumflex and the distal LAD with the stenotic range is 80-90% with increase in LVEDP , Patient will need bypass procedure to open his coronary arteries. Currently she denies chest pain or dyspnea. No incontinence of urine or bowel. No fever Patient is hemodynamically stable Labs including CBC, INR, BMP and liver enzymes are unremarkable. TSH is 1.6. Urine analysis showing trace blood. coronavirus not detected. Hepatitis panel is negative Chest x-ray: Minimal interstitial edema noted Carotid duplex: No significant stenosis Echocardiogram showing ejection fraction of 50-55% with [id number] mitral regurgitation and mild tricuspid regurgitation Patient currently on heparin drip, aspirin 81 mg twice a day and normal saline at 75 mL/h as well as Lipitor and metoprolol However patient this morning she is asymptomatic she denies chest pain or dyspnea or abdominal pain. No diarrhea or vomiting or dysuria. No headache or weakness or numbness. 02/23: Patient is denying any chest pain, shortness of breath, palpitations, lightheadedness or dizziness. She is scheduled for CABG this afternoon and patient states that she is ready to move forward. No new concerns from her nurse. Patient has been afebrile, heart rate 80, blood pressure 129/78 and pulse ox 96% on room air. CBC is unremarkable. Chloride 110, CO2 20, blood sugar 112, creatinine 0.68. REVIEW OF SYSTEMS Constitutional: No fever, no chills, no night sweats. No weight change. No weakness, fatigue or lethargy. No daytime sleepiness. EENT: No headache. No blurred vision or double vision, no loss of vision. No loss of Hearing, no ringing in the ears, no dizziness. No nasal drainage or congestion. No epistaxis. No sore throat. Lungs: No shortness of breath, cough, no sputum production. No wheezing. Cardiovascular: No chest pain, no lower extremity edema. No palpitations. No paroxysmal nocturnal dyspnea. No orthopnea. No lightheadedness or dizziness. No syncopal episodes. Abdominal: No abdominal pain. No nausea, vomiting. No diarrhea. No constipation. No bloody or tarry stools. No loss of appetite. Genitourinary: No dysuria, increased frequency, urgency. No urinary retention. Musculoskeletal: No myalgias. No muscle weakness, no gait dysfunction, no frequent falls. No back pain. No neck pain. Integumentary: No wounds, no lesions. No rash or pruritus. No unusual bruising. No change in hair or nails. Neurologic: No aphasia. No facial droop. No change in mentation. No head injury. No headache. No paralysis. No paresthesia. Psychiatric: No depression. No anxiety. No mood swings. Endocrine: No abnormal blood sugars. No weight change. No excessive sweating or thirst. No cold intolerance. PHYSICAL EXAMINATION Gen: This is a 76-year-old overweight female. She is resting in bed and appears to be comfortable and in no acute distress. HEENT: Head is atraumatic, normocephalic. Pupils equal, round. Sclerae is anicteric. NECK: Supple. No JVD. No lymphadenopathy. No thyromegaly. LUNGS: Clear to auscultation. No wheezes or rhonchi. No intercostal retr actions. HEART: Regular rate and rhythm. Systolic murmur. ABDOMEN: Soft. Bowel sounds are present. No masses. No tenderness. EXTREMITIES: No pedal edema. No calf tenderness. NEUROLOGICAL: Patient is awake, alert and oriented x3. Cranial nerves 2 through 12 are grossly intact. ASSESSMENT AND PLAN 1. Severe coronary artery disease. Patient is scheduled for CABG today. Continue current plan per cardiothoracic team. 2. Hypertension. 3. Hyperlipidemia. 4. Carotid artery disease. 5. GI prophylaxis. 6. DVT prophylaxis. DISCHARGE PLAN Most likely return home. Impression and plan of care have been directed as dictated by the signing physician. Elif Maharaj nurse practitioner acting as scribe for signing physician. Objective - Vital Signs Vital signs: Vital Signs Temp 98.0 F 02/23/22 08:42 Pulse 75 02/23/22 08:42 Resp 18 02/23/22 08:44 BP 137/98 06/27/22 08:42 Pulse Ox 97 02/23/22 08:42 FiO2 Intake & Output 02/22/22 02/23/22 02/23/22 18:59 06:59 18:59 Intake Total 80 110 Balance 80 110 Weight 103 kg Intake: IV 5 Invasive Line 3 5 Intake, IV Titration 75 110 Amount Heparin Sodium,Porcine 5, 110 000 unit In Sodium Chloride 0.9% 500 ml 500 ml @ As Directed IV ONCE ONE Rx#:[id number] Sodium Chloride 0.9% 1, 75 000 ml @ 75 mls/hr IV . [id number] [facility] Rx#:[id number] Other: # Voids 2 - Labs CBC & Chem 7: 02/23/22 06:05 02/23/22 06:05 Labs: Abnormal Lab Results - Last 24 Hours (Table) 02/22/22 02/22/22 02/23/22 Range/Units 05:19 09:57 06:05 APTT 55.0 H (22.0-30.0) sec Chloride 111 H (98-107) mmol/L Carbon Dioxide (22-30) mmol/L Glucose 101 H (74-99) mg/dL Total Protein 6.2 L (6.3-8.2) g/dL Crossmatch See Detail 02/23/22 Range/Units 06:05 APTT (22.0-30.0) sec Chloride 110 H (98-107) mmol/L Carbon Dioxide 20 L (22-30) mmol/L Glucose 112 H (74-99) mg/dL Total Protein (6.3-8.2) g/dL Crossmatch
[2022-02-23 13:44] LABS: ABG Base Excess -1.4 mmol/L; ABG Glucose Whole Blood 98 mg/dL (75-99); ABG HCO3 23 mmol/L (21-25); ABG Hematocrit 33 % (34.0-46.0); ABG Ionized Calcium 4.8 mg/dL (4.5-5.3); ABG Lactic Acid Whole Blood 1.2 mmol/L (0.5-1.6); ABG Oxygen Saturation 99.3 % (94-97); ABG PCO2 37 mmHg (35-45); ABG PH 7.41 (7.35-7.45); ABG PO2 168 mmHg (83-108); ABG Potassium Whole Blood 3.6 mmol/L (3.4-4.5); ABG Sodium Whole Blood 142 mmol/L (135-146); ABG TCO2 24 mmol/L (19-24)
[2022-02-23] MEDS: ceFAZolin 1,000 MG in SODIUM CHLORIDE 0.9% IRRIGATIO 1,000 ML IRRIGATION ONE ×2 (14:07→17:14)
--- NOTE | 2022-02-23 14:21 | P.PN ---
Subjective Progress Note Date: 02/23/22 This is a patient who had a recent heart catheterization, showing a critical and complex lesion involving the distal left main coronary artery, also, the ostial left circumflex, and ostial LAD. The lesions appear to be in the range of 80- 90%, and the patient was also noted to have elevated left ventricular end- diastolic filling pressures. The patient is currently being evaluated by cardiothoracic surgery for possible bypass grafting. We will reassess to see the patient preoperatively, and evaluate her lung function. The patient is a lifelong nonsmoker. She has no history of lung disease. Based on her FEV1, and her MVV, she was in the low operative risk range. Outpatient medications includ ed amlodipine, aspirin, metoprolol, lisinopril, zinc, vitamin D3, ascorbic acid, lactulose, and indoor. Her only major medical problem is hypertension. She does have a history of previous coronavirus infection and was seen by my partner in July 2021. CBC is completely normal. PTT is 39.7. Sodium 141, potassium 3.7, chlorides 111, CO2 24, BUN 12, creatinine 0.63. Cholesterol was 182. Urine was negative. Testing for coronavirus was negative. Chest x-ray shows mild interstitial edema. Currently she is on room air. Progress note dated 02/22/2022. 76-year-old female we saw yesterday in consultation. The patient has significant coronary disease, involving the left main coronary artery. The patient is apparently going to have open heart surgery one day this week. The exact day has not been decided yet. Clinically, she's. Stable. She is on room air. She is a lifelong nonsmoker. Lung function would suggest that she's at a very low increased operative risk based on her FEV1 and MVV. Labs today show white count of 6.1, with a normal hemoglobin, hematocrit, and platelet count. The patient's PTT is 60.2. Sodium 141, potassium 3.6, chlorides 111, CO2 24, BUN 12, creatinine 0.72. 02/23/2022, the patient is awaiting bypass surgery. The patient is calm and comfortable. No respiratory difficulties whatsoever. She is using incentive spirometer. Her preop FEV1 is order of 72% of predicted. No angina. No palpitations. No chest pain. She is hemodynamically stable at this point in time. She remains on IV heparin. I did introduce myself and I will take care o f this patient postop, managed to ventilator and the necessity pulmonary care following her thoracotomy bypass surgery.no other active issues for now. The patient was sent comes at 6.2 with a hemoglobin 4.5. She is on IV heparin with a PTT of 55. BUN is at 12 with a creatinine 0.6 and the sodium level is at 140. Objective - Vital Signs Vital signs: Vital Signs Temp 98.0 F 02/23/22 08:42 Pulse 75 02/23/22 08:42 Resp 18 02/23/22 08:44 BP 137/98 02/23/22 08:42 Pulse Ox 97 02/23/22 08:42 FiO2 Intake & Output 02/22/22 02/23/22 02/23/22 18:59 06:59 18:59 Intake Total 80 110 Balance 80 110 Weight 103 kg Intake: IV 5 Invasive Line 3 5 Intake, IV Titration 75 110 Amount Heparin Sodium,Porcine 5, 110 000 unit In Sodium Chloride 0.9% 500 ml 500 ml @ As Directed IV ONCE ONE Rx#:[id number] Sodium Chloride 0.9% 1, 75 000 ml @ 75 mls/hr IV . [id number] [facility] Rx#:[id number] Other: # Voids 2 - Exam No acute distress, oriented 3. Room air saturation 97 %. HEENT examination is grossly unremarkable. Neck supple. Full range of motion. No adenopathy thyromegaly or neck vein distention. Cardiovascular examination reveals regular rhythm rate. S1-S2 normal. No S3 or S4. No discernible murmur noted. Heart rate 71 bpm. Lungs reveal clear breath sounds. Breath sounds are equal bilaterally. No adventitious lung sounds including wheezes rhonchi or crackles. Abdomen soft bowel sounds are heard. No masses or tenderness. Extremities are intact. No cyanosis clubbing or edema. Skin is without rash or lesion. Neurologic examination is brief but nonfocal. - Labs CBC & Chem 7: 02/23/22 06:05 02/23/22 06:05 Labs: Abnormal Lab Results - Last 24 Hours (Table) 02/22/22 02/22/22 02/23/22 Range/Units 05:19 09:57 06:05 APTT 55.0 H (22.0-30.0) sec Chloride 111 H (98-107) mmol/L Carbon Dioxide (22-30) mmol/L Glucose 101 H (74-99) mg/dL Total Protein 6.2 L (6.3-8.2) g/dL Crossmatch See Detail 02/23/22 Range/Units 06:05 APTT (22.0-30.0) sec Chloride 110 H (98-107) mmol/L Carbon Dioxide 20 L (22-30) mmol/L Glucose 112 H (74-99) mg/dL Total Protein (6.3-8.2) g/dL Crossmatch Assessment and Plan Plan: Symptomatic coronary disease, with anticipated bypass grafting, and the surgery to be done today. Overall pulmonary status is stable.the patient is free of any chest pain for now. The patient is hemodynamically stable. No cardiac arrhythmias. History of hypertension. No history of any lung disease, and patient at low increased operative risk based on lung function. Prior history of coronavirus infection, July 2021. plan Keep the patient IV heparin Continue using incentive spirometer Proceed with coronary artery bypass surgery this afternoon Will be involved in her care, management of ventilator in the necessary pulmonary care postop.
[2022-02-23 15:31] LABS: ABG Base Excess -3.1 mmol/L; ABG Glucose Whole Blood 139 mg/dL (75-99); ABG HCO3 22 mmol/L (21-25); ABG Hematocrit 33 % (34.0-46.0); ABG Ionized Calcium 4.8 mg/dL (4.5-5.3); ABG Lactic Acid Whole Blood 1.6 mmol/L (0.5-1.6); ABG Oxygen Saturation 96.4 % (94-97); ABG PCO2 38 mmHg (35-45); ABG PH 7.37 (7.35-7.45); ABG PO2 82 mmHg (83-108); ABG Potassium Whole Blood 3.9 mmol/L (3.4-4.5); ABG Sodium Whole Blood 142 mmol/L (135-146); ABG TCO2 23 mmol/L (19-24)
[2022-02-23 16:29] LABS: ABG Base Excess -5.7 mmol/L; ABG Glucose Whole Blood 227 mg/dL (75-99); ABG HCO3 20 mmol/L (21-25); ABG Hematocrit 30 % (34.0-46.0); ABG Oxygen Saturation 99.3 % (94-97); ABG PCO2 37 mmHg (35-45); ABG PH 7.34 (7.35-7.45); ABG PO2 187 mmHg (83-108); ABG Potassium Whole Blood 3.7 mmol/L (3.4-4.5); ABG Sodium Whole Blood 140 mmol/L (135-146); ABG TCO2 21 mmol/L (19-24)
[2022-02-23 17:06] LABS: ABG Glucose Whole Blood 179 mg/dL (75-99); ABG HCO3 22 mmol/L (21-25); ABG Hematocrit 30 % (34.0-46.0); ABG Ionized Calcium 4.9 mg/dL (4.5-5.3); ABG Oxygen Saturation 97.3 % (94-97); ABG PCO2 40 mmHg (35-45); ABG PH 7.34 (7.35-7.45); ABG PO2 93 mmHg (83-108); ABG Sodium Whole Blood 141 mmol/L (135-146); ABG TCO2 23 mmol/L (19-24)
[2022-02-23 17:14] LABS: ABG Lactic Acid Whole Blood 2.7 mmol/L (0.5-1.6)
[2022-02-23 17:16] LABS: ABG Lactic Acid Whole Blood 2.8 mmol/L (0.5-1.6)
[2022-02-23] MEDS ORDERED: ALBUMIN HUMAN 5% 250 ML IVPB ONE (17:32)
[2022-02-23] MEDS ORDERED: BENZOCAINE/MENTHOL LOZENG 1 EACH LOZENGE MUCOUS MEM PRN (17:33)
[2022-02-23] MEDS ORDERED: Potassium Replacement Protocol 1 EACH MISC MISCELLANE PRN (17:33)
[2022-02-23] MEDS ORDERED: IPRATROPIUM-ALBUTEROL 3 ML NEB INHALATION PRN (17:33)
[2022-02-23] MEDS ORDERED: AMIODARONE 360 MG in DEXTROSE 5% IN WATER 200 ML IV ONE ×2 (17:33)
[2022-02-23] MEDS ORDERED: Magnesium Replacement Protocol 1 EACH MISC MISCELLANE PRN (17:33)
[2022-02-23] MEDS ORDERED: ONDANSETRON 4 MG/2 ML VIAL IVP PRN (17:33)
[2022-02-23] MEDS ORDERED: CALCIUM GLUCONATE IN NACL 2 GM in SALINE 1 100ML.BAG IVPB PRN (17:33)
[2022-02-23] MEDS ORDERED: DEXMEDETOMIDINE/0.9% NACL(PMX) 400 MCG in EMPTY BAG 1 BAG IV SCH (17:33)
[2022-02-23] MEDS ORDERED: METOCLOPRAMIDE 5 MG/ML 2 ML VIAL IVP PRN (17:33)
--- NOTE | 2022-02-23 17:54 | P.OP ---
Date of Procedure: 02/23/22 Preoperative Diagnosis: Left main coronary artery disease, unstable angina, atrial arrhythmias Postoperative Diagnosis: Same Procedure(s) Performed: Off-pump CABG 2 with RAMOS to LAD, SVG to OM, ligate left atrial appendage with 40 mm AtriCure clip, endovascular vein harvest, placement aortic balloon pump. Implants: 40 mm AtriCure clip Anesthesia: DES Surgeon: Reji Gonzalez Clinical Rehabilitation Specialist #1: Sebsatián Mora Clinical Rehabilitation Specialist #2: Ubaldo Freeman Estimated Blood Loss (ml): 400 IV fluids (ml): 3,000 Urine output (ml): 500 Pathology: none sent Condition: stable Disposition: ICU Indications for Procedure: 76-year-old obese woman with worsening anginal symptomatology. She underwent cardiac catheterization on Wednesday was found to have distal left main disease with severe left main equivalent, 95% ostial LAD, 95% ostial circumflex. Regular function was well preserved. She was having episodes of unstable angina and was admitted to the hospital for urgent coronary bypass revascularization. Operative Findings: Left ventricular function was good. There was mild to moderate regurgitation which worsened as the patient became ischemic with lifting the heart. This stabilized with placement of intra-aortic balloon pump. Conduits and targets were good. Good grafts were achieved. Patient had some atrial arrhythmias and underwent 2 cardioversions. She left the room in sinus rhythm. She had a large left atrial appendage. We were successful at placing a clip at the base of the appendage. Description of Procedure: The patient underwent arterial, central line and swan gumaro catheter placement in the pre-operative suite by anesthesia. She was brought back to the operating room and placed in the supine position. General endotracheal anesthesia was induced and she was prepped and draped in the usual sterile fashion. A time-out was performed and antibiotics were given. Intra-op NITO showed EF 50-55% with mild mitral regurgitation. We made a midline incision on the chest and performed a median sternotomy. Hemostasis on the bone was achieved with electrocautery. The left pleura was incised and the left internal thoracic artery was harvested in a pedicle fashion. Simultaneously an assistant infant toddler teacher endoscopically harvested the right greater saphenous vein. The patient was systemically heparinzed and the TAIWO was transected. A left sided 32F chest tube was placed. The pericardium was opened and a pericardial cradle was created. Stay sutures were placed and the left anterior descending artery was brought into the field and stabilized using the octopus stabilizer. An arteriotomy was made and a 1.5mm shunt was inserted into the LAD, which was a good target. An end to side anastomosis was performed with the TAIWO to the LAD using a running 8-0 prolene. Next a deep pericardial suture was placed and the left atrial appendage was exposed. A 40mm AtriClip was placed on the appendage. When we lifted the heart to expose the lateral wall, the patient became hypotensive with SBP in 40-50's. She also had some worsening mitral regurgitation with that maneuver. At this point we placed an intra aortic balloon pump through the right common femoral artery. Once IABP was initiated, the patients hemodynamics improved dramatically. We then exposed the lateral wall and exposed and stabilized the obtuse marginal artery. An arteriorotomy was performed and a 1.5mm shunt was inserted into the vessel, which was a good target. An end to side anastomosis was performed with reverse greater saphenous vein using a running 7-0 prolene. The vein was fastened to the ascending aorta using the heartstring with a running 5-0 prolene in an end to side fashion. Protamine was given and hemostasis was secured. A 36F chest tube was placed in the mediastinum and the sternum was closed with steel wires. All incisions were closed in layers and glue was applied. She was brought to the ICU in stable condition requiring a small amount of norepinephrine. Post-op echo revealed mild mitral regurgitation and good EF at the end of the procedure. The IABP was kept at 1:1.
[2022-02-23] MEDS: SODIUM CHLORIDE 0.9% 1,000 ML IV SCH (17:55)
[2022-02-23 18:34] LABS: Glucose,Whole Blood 165 mg/dL (70-110)
[2022-02-23] MEDS: INSULIN REGULAR 100 UNIT in SODIUM CHLORIDE 0.9% 100 ML IV SCH (18:37)
[2022-02-23] MEDS: LACTATED RINGERS 1,000 ML IV SCH (18:38)
[2022-02-23 18:42] LABS: Basophils % (A) 0 %; Eosinophils % (A) 0 %; Lymphocytes # (A) 0.7 k/uL (1.0-4.8); Lymphocytes % (A) 6 %; MCH 29.5 pg (25.0-35.0); MCHC 32.5 g/dL (31.0-37.0); MCV 90.8 fL (80.0-100.0); Mean Platelet Volume 7.9; Monocytes # (A) 0.4 k/uL (0-1.0); Monocytes % (A) 4 %; Neutrophils # (A) 10.4 k/uL (1.3-7.7); Neutrophils % (A) 89 %; Platelet Count 190 k/uL (150-450); RBC 3.19 m/uL (3.80-5.40); RDW 14.3 % (11.5-15.5); WBC 11.6 k/uL (3.8-10.6)
[2022-02-23 18:47] LABS: Ionized Calcium 4.9 mg/dL (4.5-5.3)
[2022-02-23 18:53] LABS: INR 1.2 (<1.2); Partial Thromboplastin Time 28.2 sec (22.0-30.0); Prothrombin Time 12.8 sec (9.0-12.0)
--- NOTE | 2022-02-23 18:53 | XR ---
EXAMINATION TYPE: XR chest 1V portable DATE OF EXAM: 02/23/2022 COMPARISON: 02/20/2022 HISTORY: Postop cardiac surgery TECHNIQUE: FINDINGS: There is left-sided chest tube. Endotracheal tube is 2.5 cm from the cheryl. There is right jugular catheter with the tip in the main pulmonary artery. There is nasogastric tube in the distal esophagus. There is no heart failure. Lungs are clear of consolidation. Trachea is midline. No pleural effusion. No pneumothorax. IMPRESSION: The nasogastric tube has the tip in the lower esophagus. No evidence of heart failure or pulmonary consolidation.
[2022-02-23] MEDS: DEXTROSE 5% IN WATER 100 ML with AMIODARONE 150 MG IV PRN (18:54)
[2022-02-23 18:56] LABS: HGB 9.4 gm/dL (11.4-16.0)
[2022-02-23 18:57] LABS: ALT 34 U/L (4-34); AST 59 U/L (14-36); African American GFR (CKD) >90 (>60 ml/min/1.73 sqM); Alkaline Phosphatase 59 U/L (38-126); Anion Gap 5 mmol/L; Blood Urea Nitrogen 12 mg/dL (7-17); Calcium 7.9 mg/dL (8.4-10.2); Carbon Dioxide 26 mmol/L (22-30); Chloride 110 mmol/L (98-107); Glucose 150 mg/dL (74-99); Magnesium 2.2 mg/dL (1.6-2.3); Non-African American GFR(CKD) 88 (>60 ml/min/1.73 sqM); Potassium 3.6 mmol/L (3.5-5.1); Sodium 141 mmol/L (137-145); Total Bilirubin 0.9 mg/dL (0.2-1.3); Total Protein 4.7 g/dL (6.3-8.2)
[2022-02-23] MEDS: NOREPINEPHRINE 4 MG in SODIUM CHLORIDE 0.9% 250 ML IV SCH (19:00)
[2022-02-23] MEDS: ALBUMIN HUMAN 5% 250 ML in EMPTY BAG 1 BAG IVPB PRN (19:00)
[2022-02-23 19:08] LABS: Glucose,Whole Blood 193 mg/dL (70-110)
[2022-02-23 19:20] LABS: ABG Base Excess -0.2 mmol/L; ABG HCO3 26 mmol/L (21-25); ABG PCO2 50 mmHg (35-45); ABG PH 7.32 (7.35-7.45); ABG PO2 203 mmHg (83-108); ABG TCO2 27 mmol/L (19-24); Allen Test Performed? Yes
[2022-02-23] MEDS ORDERED: IPRATROPIUM-ALBUTEROL 3 ML NEB INHALATION SCH (20:00)
[2022-02-23] MEDS ORDERED: POTASSIUM BICARBONATE/CIT AC 20 MEQ TABLET.EFF NG-TUBE SCH (20:00)
[2022-02-23 20:07] LABS: Glucose,Whole Blood 179 mg/dL (70-110)
[2022-02-23] MEDS: ACETAMINOPHEN IV (For NPO) 1,000 MG in EMPTY BAG 1 BAG IVPB SCH ×2 (20:08→23:29)
[2022-02-23 21:05] LABS: Glucose,Whole Blood 162 mg/dL (70-110)
[2022-02-23 21:44] LABS: Basophils % (A) 0 %; Eosinophils % (A) 0 %; HCT 27.9 % (34.0-46.0); HGB 9.2 gm/dL (11.4-16.0); Lymphocytes # (A) 0.5 k/uL (1.0-4.8); Lymphocytes % (A) 4 %; MCH 29.7 pg (25.0-35.0); MCV 89.9 fL (80.0-100.0); Mean Platelet Volume 8.5; Monocytes # (A) 0.6 k/uL (0-1.0); Monocytes % (A) 5 %; Neutrophils # (A) 10.6 k/uL (1.3-7.7); Neutrophils % (A) 90 %; Platelet Count 215 k/uL (150-450); WBC 11.8 k/uL (3.8-10.6)
[2022-02-23 21:57] LABS: Glucose,Whole Blood 161 mg/dL (70-110)
[2022-02-23 22:17] LABS: ABG Base Excess -0.2 mmol/L; ABG HCO3 24 mmol/L (21-25); ABG Oxygen Saturation 97.3 % (94-97); ABG PCO2 39 mmHg (35-45); ABG PH 7.41 (7.35-7.45); ABG PO2 80 mmHg (83-108); ABG TCO2 26 mmol/L (19-24); Allen Test Performed? Yes
[2022-02-23 23:04] LABS: Glucose,Whole Blood 163 mg/dL (70-110)
[2022-02-23] MEDS: AMIODARONE 450 MG in DEXTROSE 5% IN WATER 250 ML IV SCH ×2 (23:26)
[2022-02-23] MEDS: HEPARIN SODIUM,PORCINE/PF 5,000 UNIT/0.5 ML SYRINGE SQ SCH (23:29)
[2022-02-24 00:06] LABS: Glucose,Whole Blood 145 mg/dL (70-110)
[2022-02-24 00:49] LABS: Basophils % (A) 0 %; Eosinophils % (A) 0 %; HCT 28.7 % (34.0-46.0); HGB 9.3 gm/dL (11.4-16.0); Lymphocytes # (A) 0.4 k/uL (1.0-4.8); Lymphocytes % (A) 3 %; MCH 29.3 pg (25.0-35.0); MCHC 32.5 g/dL (31.0-37.0); MCV 90.2 fL (80.0-100.0); Mean Platelet Volume 7.9; Monocytes # (A) 0.5 k/uL (0-1.0); Monocytes % (A) 4 %; Neutrophils % (A) 92 %; Platelet Count 214 k/uL (150-450); RBC 3.18 m/uL (3.80-5.40); RDW 14.3 % (11.5-15.5); WBC 10.9 k/uL (3.8-10.6)
[2022-02-24 00:56] LABS: Glucose,Whole Blood 130 mg/dL (70-110)
[2022-02-24] MEDS: AMIODARONE 450 MG in DEXTROSE 5% IN WATER 250 ML IV SCH ×2 (01:17)
[2022-02-24 02:00] LABS: Glucose,Whole Blood 119 mg/dL (70-110)
[2022-02-24 02:59] LABS: Glucose,Whole Blood 109 mg/dL (70-110)
[2022-02-24 04:01] LABS: Glucose,Whole Blood 125 mg/dL (70-110)
[2022-02-24 04:20] LABS: Basophils % (A) 0 %; Eosinophils % (A) 0 %; HCT 28.3 % (34.0-46.0); HGB 9.3 gm/dL (11.4-16.0); Lymphocytes # (A) 0.4 k/uL (1.0-4.8); Lymphocytes % (A) 4 %; MCH 29.7 pg (25.0-35.0); MCV 90.3 fL (80.0-100.0); Mean Platelet Volume 7.9; Monocytes # (A) 0.6 k/uL (0-1.0); Monocytes % (A) 6 %; Neutrophils # (A) 8.6 k/uL (1.3-7.7); Neutrophils % (A) 89 %; Platelet Count 195 k/uL (150-450); RBC 3.14 m/uL (3.80-5.40); RDW 14.1 % (11.5-15.5); WBC 9.7 k/uL (3.8-10.6)
[2022-02-24 04:50] LABS: Ionized Calcium 4.9 mg/dL (4.5-5.3)
[2022-02-24] MEDS ORDERED: HYDROcodone/APAP 5-325MG 1 EACH TAB PO PRN ×2 (04:54)
[2022-02-24 04:59] LABS: ALT 41 U/L (4-34); AST 85 U/L (14-36); African American GFR (CKD) >90 (>60 ml/min/1.73 sqM); Albumin 3.4 g/dL (3.5-5.0); Alkaline Phosphatase 60 U/L (38-126); Anion Gap 6 mmol/L; Blood Urea Nitrogen 14 mg/dL (7-17); Calcium 8.5 mg/dL (8.4-10.2); Carbon Dioxide 26 mmol/L (22-30); Chloride 107 mmol/L (98-107); Glucose 118 mg/dL (74-99); Magnesium 2.1 mg/dL (1.6-2.3); Non-African American GFR(CKD) 87 (>60 ml/min/1.73 sqM); Sodium 139 mmol/L (137-145); Total Bilirubin 0.6 mg/dL (0.2-1.3); Total Protein 5.1 g/dL (6.3-8.2)
[2022-02-24 05:02] LABS: Glucose,Whole Blood 126 mg/dL (70-110)
[2022-02-24 06:09] LABS: Glucose,Whole Blood 120 mg/dL (70-110)
--- NOTE | 2022-02-24 06:50 | XR ---
EXAMINATION TYPE: XR chest 1V portable DATE OF EXAM: 02/24/2022 Comparison: 02/23/2022 Clinical History: 76-year-old male Post Operative Cardiac Surgery Findings: Median sternotomy wires are present with postoperative clips. Mediastinal drain. An additional radiop aque marker projects over the left side of the heart at the lower third of the chest, slightly more i nferior in position compared to prior exam. Clinical correlation recommended. Right IJ [place] cath eter tip in the right main pulmonary artery. Interval extubation and removal of NG tube. Left-sided c hest tube remains in place. Heart is enlarged. Interstitial density is slightly increased. Patchy ret rocardiac opacity persists. Impression: 1. Interval extubation with ongoing cardiomegaly but slight worsening aeration, possible mild pulmona ry vascular congestion. 2. Radiopaque marker projects at the left side of the heart, slightly more inferior in position cori red to prior exam. Clinically correlate.
[2022-02-24 06:56] LABS: Glucose,Whole Blood 110 mg/dL (70-110)
--- NOTE | 2022-02-24 07:27 | P.PN ---
Subjective Progress Note Date: 02/24/22 PROGRESS NOTE The patient is a 76-year-old female with history of carotid vascular disease who presented with symptoms of progressive chest discomfort and an abnormal MPI. Underwent cardiac catheterization on the and was found to have severe distal left main disease with [id number] disease in the RCA. She is scheduled to undergo CABG today. Her echo showed an ejection fraction of 50% with mild lateral wall hypokinesis and [id number] mitral regurgitation. She's feeling well this morning, denies any chest discomfort or dizziness. She is in sinus mechanism. Scheduled to undergo CABG this afternoon. She continues to be on aspirin, Lipitor 80 mg daily, isosorbide mononitrate 15 mg daily, lisinopril 30 mg daily, metoprolol succinate 25 mg daily February 24: The patient underwent off-pump CABG yesterday with RAMOS to the LAD and SVG to the OM with ligation of the left atrial appendage and placement of intra-aortic balloon pump because of worsening ischemia at the start of surgery. She had atrial arrhythmia requiring cardioversion earlier. She is extubated, in sinus mechanism, intra-aortic balloon pump at 1:2 with good blood pressure and urinary output. She is on no vasopressor. She is awake, alert and following commands. At the end of the procedure she had a good ejection fraction with mild mitral regurgitation. She continues to be on aspirin, Lipitor 80 mg daily, Plavix 75 mg daily, metoprolol tartrate 12-1/2 mg twice a day. PHYSICAL EXAMINATION: Blood pressure 135/50 with a heart rate in the 80s LUNGS: Clear to auscultation anteriorly HEART: Regular rate and rhythm, S1, S2. No S3. systolic murmur at the base ABDOMEN: Soft, nontender, no organomegaly EXTREMETIES: No edema, right groin was intra-aortic balloon pump LAB: Chest x-ray shows mild congestion, hemoglobin 9.3, BUN 14, creatinine 0.66. Potassium 4.0. IMPRESSION: 1. Status post CABG, RAMOS to the LAD and SVG to obtuse marginal branch with known severe left main disease. 2. Intra-aortic balloon pump 3. History of hyperlipidemia PLAN: 1. Wean intra-aortic balloon pump and probable removed today 2. Incentive spirometry 3. Depending on blood pressure further adjustment of medications. Objective - Vital Signs Vital signs: Vital Signs Temp 97.4 F L 02/23/22 11:30 Pulse 85 02/24/22 07:00 Resp 18 02/24/22 07:00 BP 152/77 02/23/22 11:30 Pulse Ox 92 L 02/24/22 07:00 FiO2 50 02/23/22 21:29 Intake & Output 02/23/22 02/24/22 02/24/22 18:59 06:59 18:59 Intake Total 703.400 7401.448 90.5 Output Total 1100 809 15 Balance -262.998 616.448 75.5 Weight 113.6 kg Intake: IV 583.5 1236.0 90.5 0.9 Pressure bag 9 108 9 ACETAMINOPHEN IV (For NPO 0 100 ) 1,000 mg In Empty Bag 1 bag @ 400 mls/hr IVPB Q6HR [facility] Rx#:[id number] Albumin Human 5% 250 ml 250 In Empty Bag 1 bag @ 250 mls/hr IVPB Q1HR PRN Rx#: [id number] CO/CI 20 310 30 Lactated Ringers 1,000 ml 50 600 50 @ 50 mls/hr IV .Q20H [facility] Rx#:[id number] Nitroglycerin-D5w Pmx 50 1.5 18.0 1.5 mg In Dextrose/Water 1 250ml.bag @ 5 MCG/MIN 1.5 mls/hr IV .Q24H [facility] Rx#: [id number] ceFAZolin 2 gm In Sodium 0 100 Chloride 0.9% 50 ml @ 100 mls/hr IVPB Q8H [facility] Rx#: [id number] Intake, IV Titration 253.502 89.448 Amount Heparin Sod,Pork in 0.45% 250 NaCl 25,000 unit In 0.45 % NaCl 1 250ml.bag @ 9.76 UNITS/KG/HR 10.004 mls/ hr IV .Q24H [facility] Rx#: [id number] Insulin Regular 100 unit 48.220 In Sodium Chloride 0.9% 100 ml @ Per Protocol IV .Q0M [facility] Rx#:[id number] Norepinephrine 4 mg In 26.293 Sodium Chloride 0.9% 250 ml @ 0.05 MCG/KG/MIN 19. 622 mls/hr IV .[id number] [facility] Rx#:[id number] propofoL 1,000 mg In 3.502 14.935 Empty Bag 1 bag @ Titrate IV .Q0M [facility] Rx#: [id number] Oral 100 Output: Chest Tube Drainage 446 Chest Tube Left Left 245 Pleural/Mediastinal Chest Tube Mediastinal 201 Urine 300 363 15 Estimated Blood Loss 800 Other: Voiding Method Indwelling Catheter ABP, PAP, CO, CI - Last Documented Arterial Blood Pressure 135/52 Pulmonary Artery Pressure 38/24 Cardiac Output 4.6 Cardiac Index 2.2 - Labs CBC & Chem 7: 02/24/22 04:00 02/24/22 04:00 Labs: Abnormal Lab Results - Last 24 Hours (Table) 02/22/22 02/23/22 02/23/22 Range/Units 09:57 06:05 06:05 WBC (3.8-10.6) k/uL RBC (3.80-5.40) m/uL Hgb (11.4-16.0) gm/dL Hct (34.0-46.0) % Neutrophils # (1.3-7.7) k/uL Lymphocytes # (1.0-4.8) k/uL PT (9.0-12.0) sec INR (<1.2) APTT 55.0 H (22.0-30.0) sec ABG pH (7.35-7.45) ABG pCO2 (35-45) mmHg ABG pO2 (83-108) mmHg ABG HCO3 (21-25) mmol/L ABG Total CO2 (19-24) mmol/L ABG O2 Saturation (94-97) % ABG Hematocrit (34.0-46.0) % ABG Glucose (75-99) mg/dL ABG Lactic Acid (0.5-1.6) mmol/L Hemoglobin (11.4-16.0) gm/dL Chloride 110 H (98-107) mmol/L Carbon Dioxide 20 L (22-30) mmol/L Glucose 112 H (74-99) mg/dL POC Glucose (mg/dL) (70-110) mg/dL Calcium (8.4-10.2) mg/dL AST (14-36) U/L ALT (4-34) U/L Total Protein (6.3-8.2) g/dL Albumin (3.5-5.0) g/dL Arterial Blood Glucose (75-99) mg/dL Crossmatch See Detail 02/23/22 02/23/22 02/23/22 Range/Units 13:45 15:33 16:31 WBC (3.8-10.6) k/uL RBC (3.80-5.40) m/uL Hgb (11.4-16.0) gm/dL Hct (34.0-46.0) % Neutrophils # (1.3-7.7) k/uL Lymphocytes # (1.0-4.8) k/uL PT (9.0-12.0) sec INR (<1.2) APTT (22.0-30.0) sec ABG pH 7.34 L (7.35-7.45) ABG pCO2 (35-45) mmHg ABG pO2 168 H 82 L 187 H (83-108) mmHg ABG HCO3 20 L (21-25) mmol/L ABG Total CO2 (19-24) mmol/L ABG O2 Saturation 99.3 H 99.3 H (94-97) % ABG Hematocrit 33 L 33 L 30 L (34.0-46.0) % ABG Glucose 139 H 227 H (75-99) mg/dL ABG Lactic Acid 2.7 H* (0.5-1.6) mmol/L Hemoglobin 10.9 L 10.6 L 9.8 L (11.4-16.0) gm/dL Chloride (98-107) mmol/L Carbon Dioxide (22-30) mmol/L Glucose (74-99) mg/dL POC Glucose (mg/dL) (70-110) mg/dL Calcium (8.4-10.2) mg/dL AST (14-36) U/L ALT (4-34) U/L Total Protein (6.3-8.2) g/dL Albumin (3.5-5.0) g/dL Arterial Blood Glucose 139 H 227 H (75-99) mg/dL Crossmatch 02/23/22 02/23/22 02/23/22 Range/Units 17:07 18:30 18:32 WBC 11.6 H (3.8-10.6) k/uL RBC 3.19 L (3.80-5.40) m/uL Hgb 9.4 L D (11.4-16.0) gm/dL Hct 29.0 L (34.0-46.0) % Neutrophils # 10.4 H (1.3-7.7) k/uL Lymphocytes # 0.7 L (1.0-4.8) k/uL PT (9.0-12.0) sec INR (<1.2) APTT (22.0-30.0) sec ABG pH 7.34 L (7.35-7.45) ABG pCO2 (35-45) mmHg ABG pO2 (83-108) mmHg ABG HCO3 (21-25) mmol/L ABG Total CO2 (19-24) mmol/L ABG O2 Saturation 97.3 H (94-97) % ABG Hematocrit 30 L (34.0-46.0) % ABG Glucose 179 H (75-99) mg/dL ABG Lactic Acid 2.8 H* (0.5-1.6) mmol/L Hemoglobin 9.6 L (11.4-16.0) gm/dL Chloride (98-107) mmol/L Carbon Dioxide (22-30) mmol/L Glucose (74-99) mg/dL POC Glucose (mg/dL) 165 H (70-110) mg/dL Calcium (8.4-10.2) mg/dL AST (14-36) U/L ALT (4-34) U/L Total Protein (6.3-8.2) g/dL Albumin (3.5-5.0) g/dL Arterial Blood Glucose 179 H (75-99) mg/dL Crossmatch 02/23/22 02/23/22 02/23/22 Range/Units 18:32 18:32 19:03 WBC (3.8-10.6) k/uL RBC (3.80-5.40) m/uL Hgb (11.4-16.0) gm/dL Hct (34.0-46.0) % Neutrophils # (1.3-7.7) k/uL Lymphocytes # (1.0-4.8) k/uL PT 12.8 H (9.0-12.0) sec INR 1.2 H (<1.2) APTT (22.0-30.0) sec ABG pH (7.35-7.45) ABG pCO2 (35-45) mmHg ABG pO2 (83-108) mmHg ABG HCO3 (21-25) mmol/L ABG Total CO2 (19-24) mmol/L ABG O2 Saturation (94-97) % ABG Hematocrit (34.0-46.0) % ABG Glucose (75-99) mg/dL ABG Lactic Acid (0.5-1.6) mmol/L Hemoglobin (11.4-16.0) gm/dL Chloride 110 H (98-107) mmol/L Carbon Dioxide (22-30) mmol/L Glucose 150 H (74-99) mg/dL POC Glucose (mg/dL) 193 H (70-110) mg/dL Calcium 7.9 L (8.4-10.2) mg/dL AST 59 H (14-36) U/L ALT (4-34) U/L Total Protein 4.7 L (6.3-8.2) g/dL Albumin 3.0 L (3.5-5.0) g/dL Arterial Blood Glucose (75-99) mg/dL Crossmatch 02/23/22 02/23/22 02/23/22 Range/Units 19:08 20:06 21:03 WBC (3.8-10.6) k/uL RBC (3.80-5.40) m/uL Hgb (11.4-16.0) gm/dL Hct (34.0-46.0) % Neutrophils # (1.3-7.7) k/uL Lymphocytes # (1.0-4.8) k/uL PT (9.0-12.0) sec INR (<1.2) APTT (22.0-30.0) sec ABG pH 7.32 L (7.35-7.45) ABG pCO2 50 H (35-45) mmHg ABG pO2 203 H (83-108) mmHg ABG HCO3 26 H (21-25) mmol/L ABG Total CO2 27 H (19-24) mmol/L ABG O2 Saturation 100.0 H (94-97) % ABG Hematocrit (34.0-46.0) % ABG Glucose (75-99) mg/dL ABG Lactic Acid (0.5-1.6) mmol/L Hemoglobin (11.4-16.0) gm/dL Chloride (98-107) mmol/L Carbon Dioxide (22-30) mmol/L Glucose (74-99) mg/dL POC Glucose (mg/dL) 179 H 162 H (70-110) mg/dL Calcium (8.4-10.2) mg/dL AST (14-36) U/L ALT (4-34) U/L Total Protein (6.3-8.2) g/dL Albumin (3.5-5.0) g/dL Arterial Blood Glucose (75-99) mg/dL Crossmatch 02/23/22 02/23/22 02/23/22 Range/Units 21:35 21:56 22:11 WBC 11.8 H (3.8-10.6) k/uL RBC 3.10 L (3.80-5.40) m/uL Hgb 9.2 L (11.4-16.0) gm/dL Hct 27.9 L (34.0-46.0) % Neutrophils # 10.6 H (1.3-7.7) k/uL Lymphocytes # 0.5 L (1.0-4.8) k/uL PT (9.0-12.0) sec INR (<1.2) APTT (22.0-30.0) sec ABG pH (7.35-7.45) ABG pCO2 (35-45) mmHg ABG pO2 80 L (83-108) mmHg ABG HCO3 (21-25) mmol/L ABG Total CO2 26 H (19-24) mmol/L ABG O2 Saturation 97.3 H (94-97) % ABG Hematocrit (34.0-46.0) % ABG Glucose (75-99) mg/dL ABG Lactic Acid (0.5-1.6) mmol/L Hemoglobin (11.4-16.0) gm/dL Chloride (98-107) mmol/L Carbon Dioxide (22-30) mmol/L Glucose (74-99) mg/dL POC Glucose (mg/dL) 161 H (70-110) mg/dL Calcium (8.4-10.2) mg/dL AST (14-36) U/L ALT (4-34) U/L Total Protein (6.3-8.2) g/dL Albumin (3.5-5.0) g/dL Arterial Blood Glucose (75-99) mg/dL Crossmatch 02/23/22 02/24/22 02/24/22 Range/Units 23:03 00:04 00:06 WBC 10.9 H (3.8-10.6) k/uL RBC 3.18 L (3.80-5.40) m/uL Hgb 9.3 L (11.4-16.0) gm/dL Hct 28.7 L (34.0-46.0) % Neutrophils # 10.0 H (1.3-7.7) k/uL Lymphocytes # 0.4 L (1.0-4.8) k/uL PT (9.0-12.0) sec INR (<1.2) APTT (22.0-30.0) sec ABG pH (7.35-7.45) ABG pCO2 (35-45) mmHg ABG pO2 (83-108) mmHg ABG HCO3 (21-25) mmol/L ABG Total CO2 (19-24) mmol/L ABG O2 Saturation (94-97) % ABG Hematocrit (34.0-46.0) % ABG Glucose (75-99) mg/dL ABG Lactic Acid (0.5-1.6) mmol/L Hemoglobin (11.4-16.0) gm/dL Chloride (98-107) mmol/L Carbon Dioxide (22-30) mmol/L Glucose (74-99) mg/dL POC Glucose (mg/dL) 163 H 145 H (70-110) mg/dL Calcium (8.4-10.2) mg/dL AST (14-36) U/L ALT (4-34) U/L Total Protein (6.3-8.2) g/dL Albumin (3.5-5.0) g/dL Arterial Blood Glucose (75-99) mg/dL Crossmatch 02/24/22 02/24/22 02/24/22 Range/Units 00:54 01:57 03:58 WBC (3.8-10.6) k/uL RBC (3.80-5.40) m/uL Hgb (11.4-16.0) gm/dL Hct (34.0-46.0) % Neutrophils # (1.3-7.7) k/uL Lymphocytes # (1.0-4.8) k/uL PT (9.0-12.0) sec INR (<1.2) APTT (22.0-30.0) sec ABG pH (7.35-7.45) ABG pCO2 (35-45) mmHg ABG pO2 (83-108) mmHg ABG HCO3 (21-25) mmol/L ABG Total CO2 (19-24) mmol/L ABG O2 Saturation (94-97) % ABG Hematocrit (34.0-46.0) % ABG Glucose (75-99) mg/dL ABG Lactic Acid (0.5-1.6) mmol/L Hemoglobin (11.4-16.0) gm/dL Chloride (98-107) mmol/L Carbon Dioxide (22-30) mmol/L Glucose (74-99) mg/dL POC Glucose (mg/dL) 130 H 119 H 125 H (70-110) mg/dL Calcium (8.4-10.2) mg/dL AST (14-36) U/L ALT (4-34) U/L Total Protein (6.3-8.2) g/dL Albumin (3.5-5.0) g/dL Arterial Blood Glucose (75-99) mg/dL Crossmatch 02/24/22 02/24/22 02/24/22 Range/Units 04:00 04:00 04:59 WBC (3.8-10.6) k/uL RBC 3.14 L (3.80-5.40) m/uL Hgb 9.3 L (11.4-16.0) gm/dL Hct 28.3 L (34.0-46.0) % Neutrophils # 8.6 H (1.3-7.7) k/uL Lymphocytes # 0.4 L (1.0-4.8) k/uL PT (9.0-12.0) sec INR (<1.2) APTT (22.0-30.0) sec ABG pH (7.35-7.45) ABG pCO2 (35-45) mmHg ABG pO2 (83-108) mmHg ABG HCO3 (21-25) mmol/L ABG Total CO2 (19-24) mmol/L ABG O2 Saturation (94-97) % ABG Hematocrit (34.0-46.0) % ABG Glucose (75-99) mg/dL ABG Lactic Acid (0.5-1.6) mmol/L Hemoglobin (11.4-16.0) gm/dL Chloride (98-107) mmol/L Carbon Dioxide (22-30) mmol/L Glucose 118 H (74-99) mg/dL POC Glucose (mg/dL) 126 H (70-110) mg/dL Calcium (8.4-10.2) mg/dL AST 85 H (14-36) U/L ALT 41 H (4-34) U/L Total Protein 5.1 L (6.3-8.2) g/dL Albumin 3.4 L (3.5-5.0) g/dL Arterial Blood Glucose (75-99) mg/dL Crossmatch 02/24/22 Range/Units 06:05 WBC (3.8-10.6) k/uL RBC (3.80-5.40) m/uL Hgb (11.4-16.0) gm/dL Hct (34.0-46.0) % Neutrophils # (1.3-7.7) k/uL Lymphocytes # (1.0-4.8) k/uL PT (9.0-12.0) sec INR (<1.2) APTT (22.0-30.0) sec ABG pH (7.35-7.45) ABG pCO2 (35-45) mmHg ABG pO2 (83-108) mmHg ABG HCO3 (21-25) mmol/L ABG Total CO2 (19-24) mmol/L ABG O2 Saturation (94-97) % ABG Hematocrit (34.0-46.0) % ABG Glucose (75-99) mg/dL ABG Lactic Acid (0.5-1.6) mmol/L Hemoglobin (11.4-16.0) gm/dL Chloride (98-107) mmol/L Carbon Dioxide (22-30) mmol/L Glucose (74-99) mg/dL POC Glucose (mg/dL) 120 H (70-110) mg/dL Calcium (8.4-10.2) mg/dL AST (14-36) U/L ALT (4-34) U/L Total Protein (6.3-8.2) g/dL Albumin (3.5-5.0) g/dL Arterial Blood Glucose (75-99) mg/dL Crossmatch
[2022-02-24] MEDS: IPRATROPIUM-ALBUTEROL 3 ML NEB INHALATION SCH ×4 (07:46→21:02)
[2022-02-24 07:59] LABS: Glucose,Whole Blood 120 mg/dL (70-110)
[2022-02-24] MEDS: NOREPINEPHRINE 4 MG in SODIUM CHLORIDE 0.9% 250 ML IV SCH (08:49)
[2022-02-24] MEDS: ASPIRIN 325 MG TAB PO SCH (08:53)
[2022-02-24] MEDS: HEPARIN SODIUM,PORCINE/PF 5,000 UNIT/0.5 ML SYRINGE SQ SCH ×2 (08:53→16:42)
[2022-02-24] MEDS: ATORVASTATIN 80 MG TAB PO SCH (08:53)
[2022-02-24] MEDS: METOPROLOL TARTRATE 12.5 MG TAB PO SCH ×2 (08:53→23:04)
[2022-02-24] MEDS: CLOPIDOGREL 75 MG TAB PO SCH (08:53)
[2022-02-24] MEDS: MUPIROCIN 2% OINT 22 GM TUBE NASAL SCH ×2 (08:54→22:19)
[2022-02-24] MEDS ORDERED: PANTOPRAZOLE 40 MG/10 ML VIAL IVP SCH (09:00)
[2022-02-24] MEDS ORDERED: bisacodyL 10 MG SUPP RECTAL PRN (09:00)
--- NOTE | 2022-02-24 09:12 | P.PN ---
Subjective Progress Note Date: 02/24/22 This is a patient who had a recent heart catheterization, showing a critical and complex lesion involving the distal left main coronary artery, also, the ostial left circumflex, and ostial LAD. The lesions appear to be in the range of 80- 90%, and the patient was also noted to have elevated left ventricular end- diastolic filling pressures. The patient is currently being evaluated by cardiothoracic surgery for possible bypass grafting. We will reassess to see the patient preoperatively, and evaluate her lung function. The patient is a lifelong nonsmoker. She has no history of lung disease. Based on her FEV1, and her MVV, she was in the low operative risk range. Outpatient medications includ ed amlodipine, aspirin, metoprolol, lisinopril, zinc, vitamin D3, ascorbic acid, lactulose, and indoor. Her only major medical problem is hypertension. She does have a history of previous coronavirus infection and was seen by my partner in July 2021. CBC is completely normal. PTT is 39.7. Sodium 141, potassium 3.7, chlorides 111, CO2 24, BUN 12, creatinine 0.63. Cholesterol was 182. Urine was negative. Testing for coronavirus was negative. Chest x-ray shows mild interstitial edema. Currently she is on room air. Progress note dated 02/22/2022. 76-year-old female we saw yesterday in consultation. The patient has significant coronary disease, involving the left main coronary artery. The patient is apparently going to have open heart surgery one day this week. The exact day has not been decided yet. Clinically, she's. Stable. She is on room air. She is a lifelong nonsmoker. Lung function would suggest that she's at a very low increased operative risk based on her FEV1 and MVV. Labs today show white count of 6.1, with a normal hemoglobin, hematocrit, and platelet count. The patient's PTT is 60.2. Sodium 141, potassium 3.6, chlorides 111, CO2 24, BUN 12, creatinine 0.72. 02/23/2022, the patient is awaiting bypass surgery. The patient is calm and comfortable. No respiratory difficulties whatsoever. She is using incentive spirometer. Her preop FEV1 is order of 72% of predicted. No angina. No palpitations. No chest pain. She is hemodynamically stable at this point in time. She remains on IV heparin. I did introduce myself and I will take care o f this patient postop, managed to ventilator and the necessity pulmonary care following her thoracotomy bypass surgery.no other active issues for now. The patient was sent comes at 6.2 with a hemoglobin 4.5. She is on IV heparin with a PTT of 55. BUN is at 12 with a creatinine 0.6 and the sodium level is at 140. 02/24/2022, I'm seeing the patient for a follow-up. The patient was taken to the operating room yesterday and the patient underwent an off-pump coronary artery bypass surgery with RAMOS to LAD and saphenous vein graft to obtuse marginal. The patient also had a left facial appendage clipping. Estimated blood loss was 400 mL. The patient received a total of 3 L of intraoperative IV fluids. Note that the patient was having issues with hypotension and there was some interval worsening of the mitral regurgitation intraoperatively. At that point, it was decided to insert an intra-aortic balloon pump and this was done through the right common femoral artery. Once the intra-aortic balloon pump was initiated, the patient's hemodynamics improved dramatically. The patient was given a postop echo cardiac exam that showed a mild MR and good ejection fraction. The intra-aortic balloon pump was placed on a one-to-one augmentation and following that the patient was brought into the intensive care unit. The patient subsequently was weaned off the sedation and the patient was extubated without any major difficulties within a few hours. The patient was extubated and the fourth hours after arriving to the ICU. The patient had with good weaning parameters. The patient had a blood gas that showed adequate oxygenation and ventilation. Based on that, the patient was extubated. This morning, the patient remains on oxygen at 6 L per minute nasal cannula. The chest x-ray showing cardiomegaly. The patient is a mediastinal and left pleural chest tube. Output from the chest tubes have been 250 mL from the mediastinum and 280 from the left pleural since surgery. No evidence of any air leak. The chest x-ray shows no evidence of any pneumothorax. Hemodynamically, the patient is currently receiving intra-aortic balloon pump augmentation of 1-2. The patient has adequate cardiac output of 4.3 and an index of 2. She is on no pressors for now. The intra-aortic balloon pump will be removed for now. The patient is stable to systemic adequate blood pressure was the patient being off the balloon pump. Urine output is in order of 20 mL an hour. The patient is a febrile. The patient is awake and following commands thoracic questions appropriately. Pulmonary artery pressures are 38 over 18 mmHg. Lower blood work from work today is showing a sodium of 139, potassium of 4, bicarb of 26, BUN of 14 with a creatinine of 0.6. The white cell count is at 9.7 with a hemoglobin of 9.3 and a platelet count of 195. AST is 85 with an ALT of 60 and alkaline phosphatase of 41. Magnesium level is at 2.1. Note that the patient had a run of atrial fibrillation intraoperatively. The patient was loaded with amiodarone and currently the patient is on 0.5 mg per minute of amiodarone infusion. The patient is in a normal sinus rhythm. The patient is also on an insulin drip running at 2.5 units an hour with adequate blood sugar control. The patient's of lactated Ringer at the rate of 50 mL an hour. As mentioned, awake and alert and the sternum is dry clean and intact. No other issues otherwise for now. Objective - Vital Signs Vital signs: Vital Signs Temp 98.8 F 02/24/22 08:00 Pulse 85 02/24/22 08:00 Resp 17 02/24/22 08:00 BP 152/77 02/23/22 11:30 Pulse Ox 97 02/24/22 08:00 FiO2 50 02/23/22 21:29 Intake & Output 02/23/22 02/24/22 02/24/22 18:59 06:59 18:59 Intake Total 843.449 5023.448 339.5 Output Total 1100 809 82 Balance -262.998 616.448 257.5 Weight 113.6 kg Intake: IV 583.5 1236.0 189.5 0.9 Pressure bag 9 108 18 ACETAMINOPHEN IV (For NPO 0 100 ) 1,000 mg In Empty Bag 1 bag @ 400 mls/hr IVPB Q6HR [facility] Rx#:[id number] Albumin Human 5% 250 ml 250 In Empty Bag 1 bag @ 250 mls/hr IVPB Q1HR PRN Rx#: [id number] CO/CI 20 310 70 Lactated Ringers 1,000 ml 50 600 100 @ 50 mls/hr IV .Q20H [facility] Rx#:[id number] Nitroglycerin-D5w Pmx 50 1.5 18.0 1.5 mg In Dextrose/Water 1 250ml.bag @ 5 MCG/MIN 1.5 mls/hr IV .Q24H [facility] Rx#: [id number] ceFAZolin 2 gm In Sodium 0 100 Chloride 0.9% 50 ml @ 100 mls/hr IVPB Q8H [facility] Rx#: [id number] Intake, IV Titration 253.502 89.448 0 Amount Heparin Sod,Pork in 0.45% 250 NaCl 25,000 unit In 0.45 % NaCl 1 250ml.bag @ 9.76 UNITS/KG/HR 10.004 mls/ hr IV .Q24H [facility] Rx#: [id number] Insulin Regular 100 unit 48.220 0 In Sodium Chloride 0.9% 100 ml @ Per Protocol IV .Q0M [facility] Rx#:[id number] Norepinephrine 4 mg In 26.293 Sodium Chloride 0.9% 250 ml @ 0.05 MCG/KG/MIN 19. 622 mls/hr IV .[id number] [facility] Rx#:[id number] propofoL 1,000 mg In 3.502 14.935 Empty Bag 1 bag @ Titrate IV .Q0M [facility] Rx#: [id number] Oral 100 150 Output: Chest Tube Drainage 446 50 Chest Tube Left Left 245 30 Pleural/Mediastinal Chest Tube Mediastinal 201 20 Urine 300 363 32 Estimated Blood Loss 800 Other: Voiding Method Indwelling Catheter Indwelling Catheter ABP, PAP, CO, CI - Last Documented Arterial Blood Pressure 119/48 Pulmonary Artery Pressure 31/17 Cardiac Output 4.3 Cardiac Index 2 - Exam No acute distress, oriented 3. The patient is currently on 6 L of oxygen by nasal cannula and the patient is laying down comfortably in bed. No signs of any significant respiratory distress at this point in time. The patient is calm and comfortable. She has a right IJ [place] catheter in place. Head exam was generally normal. There was no scleral icterus or corneal arcus. Mucous membranes were moist. HEENT examination is grossly u in her leftnremarkable. Neck supple. Full range of motion. No adenopathy thyromegaly or neck vein distention. Cardiovascular examination reveals regular rhythm rate. S1-S2 normal. No S3 or S4. No discernible murmur noted. The patient has a mediastinal chest tube in the left pleural chest tube. Sternum stable clean and intact and the surgical wound site is dry. . Lungs reveal clear breath sounds. Breath sounds are equal bilaterally. No adventitious lung sounds including wheezes rhonchi or crackles. Abdomen soft bowel sounds are heard. No masses or tenderness. Extremities are intact. No cyanosis clubbing or edema. Skin is without rash or lesion.The patient has an intra-aortic balloon pump inserted through the right groin. Exit site is dry clean and intact. Neurologic examination is brief but nonfocal. - Labs CBC & Chem 7: 02/24/22 04:00 02/24/22 04:00 Labs: Abnormal Lab Results - Last 24 Hours (Table) 02/22/22 02/23/22 02/23/22 Range/Units 09:57 13:45 15:33 WBC (3.8-10.6) k/uL RBC (3.80-5.40) m/uL Hgb (11.4-16.0) gm/dL Hct (34.0-46.0) % Neutrophils # (1.3-7.7) k/uL Lymphocytes # (1.0-4.8) k/uL PT (9.0-12.0) sec INR (<1.2) ABG pH (7.35-7.45) ABG pCO2 (35-45) mmHg ABG pO2 168 H 82 L (83-108) mmHg ABG HCO3 (21-25) mmol/L ABG Total CO2 (19-24) mmol/L ABG O2 Saturation 99.3 H (94-97) % ABG Hematocrit 33 L 33 L (34.0-46.0) % ABG Glucose 139 H (75-99) mg/dL ABG Lactic Acid (0.5-1.6) mmol/L Hemoglobin 10.9 L 10.6 L (11.4-16.0) gm/dL Chloride (98-107) mmol/L Glucose (74-99) mg/dL POC Glucose (mg/dL) (70-110) mg/dL Calcium (8.4-10.2) mg/dL AST (14-36) U/L ALT (4-34) U/L Total Protein (6.3-8.2) g/dL Albumin (3.5-5.0) g/dL Arterial Blood Glucose 139 H (75-99) mg/dL Crossmatch See Detail 02/23/22 02/23/22 02/23/22 Range/Units 16:31 17:07 18:30 WBC (3.8-10.6) k/uL RBC (3.80-5.40) m/uL Hgb (11.4-16.0) gm/dL Hct (34.0-46.0) % Neutrophils # (1.3-7.7) k/uL Lymphocytes # (1.0-4.8) k/uL PT (9.0-12.0) sec INR (<1.2) ABG pH 7.34 L 7.34 L (7.35-7.45) ABG pCO2 (35-45) mmHg ABG pO2 187 H (83-108) mmHg ABG HCO3 20 L (21-25) mmol/L ABG Total CO2 (19-24) mmol/L ABG O2 Saturation 99.3 H 97.3 H (94-97) % ABG Hematocrit 30 L 30 L (34.0-46.0) % ABG Glucose 227 H 179 H (75-99) mg/dL ABG Lactic Acid 2.7 H* 2.8 H* (0.5-1.6) mmol/L Hemoglobin 9.8 L 9.6 L (11.4-16.0) gm/dL Chloride (98-107) mmol/L Glucose (74-99) mg/dL POC Glucose (mg/dL) 165 H (70-110) mg/dL Calcium (8.4-10.2) mg/dL AST (14-36) U/L ALT (4-34) U/L Total Protein (6.3-8.2) g/dL Albumin (3.5-5.0) g/dL Arterial Blood Glucose 227 H 179 H (75-99) mg/dL Crossmatch 02/23/22 02/23/22 02/23/22 Range/Units 18:32 18:32 18:32 WBC 11.6 H (3.8-10.6) k/uL RBC 3.19 L (3.80-5.40) m/uL Hgb 9.4 L D (11.4-16.0) gm/dL Hct 29.0 L (34.0-46.0) % Neutrophils # 10.4 H (1.3-7.7) k/uL Lymphocytes # 0.7 L (1.0-4.8) k/uL PT 12.8 H (9.0-12.0) sec INR 1.2 H (<1.2) ABG pH (7.35-7.45) ABG pCO2 (35-45) mmHg ABG pO2 (83-108) mmHg ABG HCO3 (21-25) mmol/L ABG Total CO2 (19-24) mmol/L ABG O2 Saturation (94-97) % ABG Hematocrit (34.0-46.0) % ABG Glucose (75-99) mg/dL ABG Lactic Acid (0.5-1.6) mmol/L Hemoglobin (11.4-16.0) gm/dL Chloride 110 H (98-107) mmol/L Glucose 150 H (74-99) mg/dL POC Glucose (mg/dL) (70-110) mg/dL Calcium 7.9 L (8.4-10.2) mg/dL AST 59 H (14-36) U/L ALT (4-34) U/L Total Protein 4.7 L (6.3-8.2) g/dL Albumin 3.0 L (3.5-5.0) g/dL Arterial Blood Glucose (75-99) mg/dL Crossmatch 02/23/22 02/23/22 02/23/22 Range/Units 19:03 19:08 20:06 WBC (3.8-10.6) k/uL RBC (3.80-5.40) m/uL Hgb (11.4-16.0) gm/dL Hct (34.0-46.0) % Neutrophils # (1.3-7.7) k/uL Lymphocytes # (1.0-4.8) k/uL PT (9.0-12.0) sec INR (<1.2) ABG pH 7.32 L (7.35-7.45) ABG pCO2 50 H (35-45) mmHg ABG pO2 203 H (83-108) mmHg ABG HCO3 26 H (21-25) mmol/L ABG Total CO2 27 H (19-24) mmol/L ABG O2 Saturation 100.0 H (94-97) % ABG Hematocrit (34.0-46.0) % ABG Glucose (75-99) mg/dL ABG Lactic Acid (0.5-1.6) mmol/L Hemoglobin (11.4-16.0) gm/dL Chloride (98-107) mmol/L Glucose (74-99) mg/dL POC Glucose (mg/dL) 193 H 179 H (70-110) mg/dL Calcium (8.4-10.2) mg/dL AST (14-36) U/L ALT (4-34) U/L Total Protein (6.3-8.2) g/dL Albumin (3.5-5.0) g/dL Arterial Blood Glucose (75-99) mg/dL Crossmatch 02/23/22 02/23/22 02/23/22 Range/Units 21:03 21:35 21:56 WBC 11.8 H (3.8-10.6) k/uL RBC 3.10 L (3.80-5.40) m/uL Hgb 9.2 L (11.4-16.0) gm/dL Hct 27.9 L (34.0-46.0) % Neutrophils # 10.6 H (1.3-7.7) k/uL Lymphocytes # 0.5 L (1.0-4.8) k/uL PT (9.0-12.0) sec INR (<1.2) ABG pH (7.35-7.45) ABG pCO2 (35-45) mmHg ABG pO2 (83-108) mmHg ABG HCO3 (21-25) mmol/L ABG Total CO2 (19-24) mmol/L ABG O2 Saturation (94-97) % ABG Hematocrit (34.0-46.0) % ABG Glucose (75-99) mg/dL ABG Lactic Acid (0.5-1.6) mmol/L Hemoglobin (11.4-16.0) gm/dL Chloride (98-107) mmol/L Glucose (74-99) mg/dL POC Glucose (mg/dL) 162 H 161 H (70-110) mg/dL Calcium (8.4-10.2) mg/dL AST (14-36) U/L ALT (4-34) U/L Total Protein (6.3-8.2) g/dL Albumin (3.5-5.0) g/dL Arterial Blood Glucose (75-99) mg/dL Crossmatch 02/23/22 02/23/22 02/24/22 Range/Units 22:11 23:03 00:04 WBC (3.8-10.6) k/uL RBC (3.80-5.40) m/uL Hgb (11.4-16.0) gm/dL Hct (34.0-46.0) % Neutrophils # (1.3-7.7) k/uL Lymphocytes # (1.0-4.8) k/uL PT (9.0-12.0) sec INR (<1.2) ABG pH (7.35-7.45) ABG pCO2 (35-45) mmHg ABG pO2 80 L (83-108) mmHg ABG HCO3 (21-25) mmol/L ABG Total CO2 26 H (19-24) mmol/L ABG O2 Saturation 97.3 H (94-97) % ABG Hematocrit (34.0-46.0) % ABG Glucose (75-99) mg/dL ABG Lactic Acid (0.5-1.6) mmol/L Hemoglobin (11.4-16.0) gm/dL Chloride (98-107) mmol/L Glucose (74-99) mg/dL POC Glucose (mg/dL) 163 H 145 H (70-110) mg/dL Calcium (8.4-10.2) mg/dL AST (14-36) U/L ALT (4-34) U/L Total Protein (6.3-8.2) g/dL Albumin (3.5-5.0) g/dL Arterial Blood Glucose (75-99) mg/dL Crossmatch 02/24/22 02/24/22 02/24/22 Range/Units 00:06 00:54 01:57 WBC 10.9 H (3.8-10.6) k/uL RBC 3.18 L (3.80-5.40) m/uL Hgb 9.3 L (11.4-16.0) gm/dL Hct 28.7 L (34.0-46.0) % Neutrophils # 10.0 H (1.3-7.7) k/uL Lymphocytes # 0.4 L (1.0-4.8) k/uL PT (9.0-12.0) sec INR (<1.2) ABG pH (7.35-7.45) ABG pCO2 (35-45) mmHg ABG pO2 (83-108) mmHg ABG HCO3 (21-25) mmol/L ABG Total CO2 (19-24) mmol/L ABG O2 Saturation (94-97) % ABG Hematocrit (34.0-46.0) % ABG Glucose (75-99) mg/dL ABG Lactic Acid (0.5-1.6) mmol/L Hemoglobin (11.4-16.0) gm/dL Chloride (98-107) mmol/L Glucose (74-99) mg/dL POC Glucose (mg/dL) 130 H 119 H (70-110) mg/dL Calcium (8.4-10.2) mg/dL AST (14-36) U/L ALT (4-34) U/L Total Protein (6.3-8.2) g/dL Albumin (3.5-5.0) g/dL Arterial Blood Glucose (75-99) mg/dL Crossmatch 02/24/22 02/24/22 02/24/22 Range/Units 03:58 04:00 04:00 WBC (3.8-10.6) k/uL RBC 3.14 L (3.80-5.40) m/uL Hgb 9.3 L (11.4-16.0) gm/dL Hct 28.3 L (34.0-46.0) % Neutrophils # 8.6 H (1.3-7.7) k/uL Lymphocytes # 0.4 L (1.0-4.8) k/uL PT (9.0-12.0) sec INR (<1.2) ABG pH (7.35-7.45) ABG pCO2 (35-45) mmHg ABG pO2 (83-108) mmHg ABG HCO3 (21-25) mmol/L ABG Total CO2 (19-24) mmol/L ABG O2 Saturation (94-97) % ABG Hematocrit (34.0-46.0) % ABG Glucose (75-99) mg/dL ABG Lactic Acid (0.5-1.6) mmol/L Hemoglobin (11.4-16.0) gm/dL Chloride (98-107) mmol/L Glucose 118 H (74-99) mg/dL POC Glucose (mg/dL) 125 H (70-110) mg/dL Calcium (8.4-10.2) mg/dL AST 85 H (14-36) U/L ALT 41 H (4-34) U/L Total Protein 5.1 L (6.3-8.2) g/dL Albumin 3.4 L (3.5-5.0) g/dL Arterial Blood Glucose (75-99) mg/dL Crossmatch 02/24/22 02/24/22 02/24/22 Range/Units 04:59 06:05 07:58 WBC (3.8-10.6) k/uL RBC (3.80-5.40) m/uL Hgb (11.4-16.0) gm/dL Hct (34.0-46.0) % Neutrophils # (1.3-7.7) k/uL Lymphocytes # (1.0-4.8) k/uL PT (9.0-12.0) sec INR (<1.2) ABG pH (7.35-7.45) ABG pCO2 (35-45) mmHg ABG pO2 (83-108) mmHg ABG HCO3 (21-25) mmol/L ABG Total CO2 (19-24) mmol/L ABG O2 Saturation (94-97) % ABG Hematocrit (34.0-46.0) % ABG Glucose (75-99) mg/dL ABG Lactic Acid (0.5-1.6) mmol/L Hemoglobin (11.4-16.0) gm/dL Chloride (98-107) mmol/L Glucose (74-99) mg/dL POC Glucose (mg/dL) 126 H 120 H 120 H (70-110) mg/dL Calcium (8.4-10.2) mg/dL AST (14-36) U/L ALT (4-34) U/L Total Protein (6.3-8.2) g/dL Albumin (3.5-5.0) g/dL Arterial Blood Glucose (75-99) mg/dL Crossmatch Assessment and Plan Plan: Symptomatic coronary disease, post coronary artery bypass surgery 2, off-pump and the patient is postop day #1. The patient is post intra-aortic balloon pump insertion for hemodynamic support inserted at a time of surgery with subsequent improvement in patient's hemodynamics. The patient is currently on no pressors. The patient is on a 1-2 augmentation. Adequate blood pressure. Adequate cardiac output. Intra-aortic balloon pump will be removed. The patient was extubated yesterday without any major difficulties Post thoracotomy, chest tubes are in place and output is minimal at this point in time. The chest x-ray showing cardiomegaly. The patient was extubated yesterday and the patient is currently on 5 L of oxygen by nasal cannula. Stable hemodynamics Paroxysmal atrial fibrillation, expected outcome of surgery currently on amiodarone drip at 0.5 mg an hour Hyperglycemia, postop, the patient is currently on insulin drip at 2.5 units an hour. This is another expected outcome of surgery History of hypertension. No history of any lung disease, and patient at low increased operative risk based on lung function. Prior history of coronavirus infection, July 2021. Postoperative anemia, expected outcome of surgery, hemoglobin is stable for now plan Keep the patient on 6 L of O2 nasal cannula, gradually wean it down to make a saturation above 90% Provide patient incentive spirometer Keep the chest tube in place for now Monitor hemodynamics Intra-aortic balloon pump to be removed today The patient will need to stay flat for a few hours post removal of the balloon pump The patient is currently on amiodarone infusion and this will be continued per protocol Subcu heparin for DVT prophylaxis Routine postoperative cardiac medications Continue insulin drip for today We'll continue to follow make further recommendations based on her progress. Case was discussed with the cardiothoracic team. Is a critically care evaluation. Evaluation was done and more than 30 minutes.
[2022-02-24 09:20] LABS: Glucose,Whole Blood 117 mg/dL (70-110)
[2022-02-24] MEDS ORDERED: ACETAMINOPHEN TAB 325 MG TAB PO PRN (09:55)
--- NOTE | 2022-02-24 10:01 | P.PCN ---
Date of Procedure: 02/24/22 Preoperative Diagnosis: Coronary artery disease Postoperative Diagnosis: Same Procedure(s) Performed: Removal of intra-aortic balloon pump Anesthesia: none Lead Ramp Service Man #1: Ellen Delgado Estimated Blood Loss (ml): 5 Condition: stable Indications for Procedure: This is a 76-year-old female who was found to have triple vessel coronary artery disease. An intra-aortic balloon pump was placed in the operating room by Dr. Gonzalez during the course of coronary artery bypass surgery yesterday. She has done well overnight. This morning she is hemodynamically stable and is no longer in need of intra-aortic balloon pump assistance. Removal of the device was recommended. The risks, benefits, alternatives to this procedure were discu ssed with the patient. All questions were answered. Consent was obtained. Description of Procedure: The right groin was examined. There was no evidence of hematoma. The balloon pump was turned off. The pre-existing sheath and balloon were removed en jose alejandro and artery was allowed to bleed both anterograde and retrograde for several beats. Direct pressure was held over the site for 30 minutes. There was no residual bleeding or hematoma noted. The groin itself was soft. The right lower extremity appeared warm and well perfused. There were no immediate complications. She remained hemodynamically stable with a good follow-up cardiac index.
[2022-02-24 10:18] LABS: Glucose,Whole Blood 114 mg/dL (70-110)
--- NOTE | 2022-02-24 10:21 | P.PN ---
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 Previous medical history of hypertension, hyperlipidemia, SVT, left internal carotid artery stenosis, obesity, never smoker, remains unvaccinated against Covid, family history of coronary artery disease POD #1 off-pump coronary artery bypass grafting 2 with left internal mammary artery to the left anterior descending artery, reverse saphenous vein graft to the obtuse marginal artery, ligation of the left atrial appendage with a 40 mm AtriCure clip, endovascular vein harvest of the right greater saphenous vein, placement of intra-aortic balloon pump Postoperative acute blood loss anemia, expected given hemodilution The patient was seen and examined this morning laying in bed in the intensive care unit in no acute distress. She was successfully extubated last night at 22:25. Remains in sinus rhythm, hemodynamically stable on no inotropes or pressors. She remains on IV amiodarone for atrial fibrillation prophylaxis. Right groin intra-aortic balloon pump was present this morning and just recently discontinued without incident. Patient denies any significant pain, denies shortness of breath. She states she is looking forward to being able to sit up and get out of bed, otherwise has no new concerns. Right internal jugular [place]/Cordis, right radial arterial line, mediastinal/left pleural chest tubes all remaining. No other new concerns. Objective - Vital Signs Vital signs: Vital Signs Temp 98.8 F 02/24/22 08:00 Pulse 85 02/24/22 10:00 Resp 12 02/24/22 10:00 BP 152/77 02/23/22 11:30 Pulse Ox 94 L 02/24/22 10:00 FiO2 50 02/23/22 21:29 Intake & Output 02/23/22 02/24/22 02/24/22 18:59 06:59 18:59 Intake Total 461.779 0582.448 667.5 Output Total 1100 809 232 Balance -262.998 616.448 435.5 Weight 113.6 kg Intake: IV 583.5 1236.0 317.5 0.9 Pressure bag 9 108 36 ACETAMINOPHEN IV (For NPO 0 100 ) 1,000 mg In Empty Bag 1 bag @ 400 mls/hr IVPB Q6HR [facility] Rx#:[id number] Albumin Human 5% 250 ml 250 In Empty Bag 1 bag @ 250 mls/hr IVPB Q1HR PRN Rx#: [id number] CO/CI 20 310 90 Lactated Ringers 1,000 ml 50 600 190 @ 20 mls/hr IV .Q24H [facility] Rx#:[id number] Nitroglycerin-D5w Pmx 50 1.5 18.0 1.5 mg In Dextrose/Water 1 250ml.bag @ 5 MCG/MIN 1.5 mls/hr IV .Q24H [facility] Rx#: [id number] ceFAZolin 2 gm In Sodium 0 100 Chloride 0.9% 50 ml @ 100 mls/hr IVPB Q8H [facility] Rx#: [id number] Intake, IV Titration 253.502 89.448 0 Amount Heparin Sod,Pork in 0.45% 250 NaCl 25,000 unit In 0.45 % NaCl 1 250ml.bag @ 9.76 UNITS/KG/HR 10.004 mls/ hr IV .Q24H [facility] Rx#: [id number] Insulin Regular 100 unit 48.220 0 In Sodium Chloride 0.9% 100 ml @ Per Protocol IV .Q0M [facility] Rx#:[id number] Norepinephrine 4 mg In 26.293 Sodium Chloride 0.9% 250 ml @ 0.05 MCG/KG/MIN 19. 622 mls/hr IV .[id number] [facility] Rx#:[id number] propofoL 1,000 mg In 3.502 14.935 Empty Bag 1 bag @ Titrate IV .Q0M [facility] Rx#: [id number] Oral 100 350 Output: Chest Tube Drainage 446 160 Chest Tube Left Left 245 100 Pleural/Mediastinal Chest Tube Mediastinal 201 60 Urine 300 363 72 Estimated Blood Loss 800 Other: Voiding Method Indwelling Catheter Indwelling Catheter ABP, PAP, CO, CI - Last Documented Arterial Blood Pressure 129/59 Pulmonary Artery Pressure 39/23 Cardiac Output 4.7 Cardiac Index 2.2 - Exam CONSTITUTIONAL: Appears comfortable, cooperative, no acute distress RESPIRATORY: Lungs sounds diminished bilaterally. Respirations even, nonlabored. Currently on 6 L high flow nasal cannula with oxygen saturation 94%. Able to achieve 750 mL on incentive spirometry. Strong cough. CARDIOVASCULAR: S1, S2 present. Regular rate and rhythm, sinus rhythm on telemetry. Sternum stable. Palpable peripheral pulses bilaterally. No edema present. No calf pain or tenderness noted. Heart hugger in place with patient demonstrating appropriate use. Antiembolism stockings, SCDs present. GASTROINTESTINAL: Abdomen soft, nontender, nondistended. Hypoactive bowel sounds present 4 quadrants. Tolerating liquids. Denies flatus GENITOURINARY: Boss present draining clear, yellow urine. Output overnight 20-35 mL per hour INTEGUMENTARY: Skin is warm and dry with evidence of good perfusion. Anterior chest incision well approximated and covered with dry intact dressing. Right lower extremity EVH site well approximated without redness or drainage. NEUROLOGIC: Cranial nerves II through XII intact MUSKULOSKELETAL: Able to move all extremities, strength equal bilaterally PSYCHIATRIC: Alert and oriented to person place and time, appropriate affect, intact judgment and insight INVASIVE LINES AND TUBES: Mediastinal/left pleural chest tubes present and connected to wall suction, no air leaks present. Mediastinal tube with 128 mL serosanguineous drainage overnight, 250 mL since surgery. Left pleural chest tube with 152 mL serosanguineous drainage overnight, 300 mL since surgery. Right femoral artery intra-aortic balloon pump, 7.5-Cymraes with 40 mL balloon, recently discontinued. Right internal jugular [place]/Cordis, right radial arterial line present. Last CO/CI 4.7/2.2, PA 39/23, CVP 12. - Allied health notes Allied health notes reviewed: nursing - Labs CBC & Chem 7: 02/24/22 04:00 02/24/22 04:00 Labs: Abnormal Lab Results - Last 24 Hours (Table) 02/22/22 02/23/22 02/23/22 Range/Units 09:57 13:45 15:33 WBC (3.8-10.6) k/uL RBC (3.80-5.40) m/uL Hgb (11.4-16.0) gm/dL Hct (34.0-46.0) % Neutrophils # (1.3-7.7) k/uL Lymphocytes # (1.0-4.8) k/uL PT (9.0-12.0) sec INR (<1.2) ABG pH (7.35-7.45) ABG pCO2 (35-45) mmHg ABG pO2 168 H 82 L (83-108) mmHg ABG HCO3 (21-25) mmol/L ABG Total CO2 (19-24) mmol/L ABG O2 Saturation 99.3 H (94-97) % ABG Hematocrit 33 L 33 L (34.0-46.0) % ABG Glucose 139 H (75-99) mg/dL ABG Lactic Acid (0.5-1.6) mmol/L Hemoglobin 10.9 L 10.6 L (11.4-16.0) gm/dL Chloride (98-107) mmol/L Glucose (74-99) mg/dL POC Glucose (mg/dL) (70-110) mg/dL Calcium (8.4-10.2) mg/dL AST (14-36) U/L ALT (4-34) U/L Total Protein (6.3-8.2) g/dL Albumin (3.5-5.0) g/dL Arterial Blood Glucose 139 H (75-99) mg/dL Crossmatch See Detail 02/23/22 02/23/22 02/23/22 Range/Units 16:31 17:07 18:30 WBC (3.8-10.6) k/uL RBC (3.80-5.40) m/uL Hgb (11.4-16.0) gm/dL Hct (34.0-46.0) % Neutrophils # (1.3-7.7) k/uL Lymphocytes # (1.0-4.8) k/uL PT (9.0-12.0) sec INR (<1.2) ABG pH 7.34 L 7.34 L (7.35-7.45) ABG pCO2 (35-45) mmHg ABG pO2 187 H (83-108) mmHg ABG HCO3 20 L (21-25) mmol/L ABG Total CO2 (19-24) mmol/L ABG O2 Saturation 99.3 H 97.3 H (94-97) % ABG Hematocrit 30 L 30 L (34.0-46.0) % ABG Glucose 227 H 179 H (75-99) mg/dL ABG Lactic Acid 2.7 H* 2.8 H* (0.5-1.6) mmol/L Hemoglobin 9.8 L 9.6 L (11.4-16.0) gm/dL Chloride (98-107) mmol/L Glucose (74-99) mg/dL POC Glucose (mg/dL) 165 H (70-110) mg/dL Calcium (8.4-10.2) mg/dL AST (14-36) U/L ALT (4-34) U/L Total Protein (6.3-8.2) g/dL Albumin (3.5-5.0) g/dL Arterial Blood Glucose 227 H 179 H (75-99) mg/dL Crossmatch 02/23/22 02/23/22 02/23/22 Range/Units 18:32 18:32 18:32 WBC 11.6 H (3.8-10.6) k/uL RBC 3.19 L (3.80-5.40) m/uL Hgb 9.4 L D (11.4-16.0) gm/dL Hct 29.0 L (34.0-46.0) % Neutrophils # 10.4 H (1.3-7.7) k/uL Lymphocytes # 0.7 L (1.0-4.8) k/uL PT 12.8 H (9.0-12.0) sec INR 1.2 H (<1.2) ABG pH (7.35-7.45) ABG pCO2 (35-45) mmHg ABG pO2 (83-108) mmHg ABG HCO3 (21-25) mmol/L ABG Total CO2 (19-24) mmol/L ABG O2 Saturation (94-97) % ABG Hematocrit (34.0-46.0) % ABG Glucose (75-99) mg/dL ABG Lactic Acid (0.5-1.6) mmol/L Hemoglobin (11.4-16.0) gm/dL Chloride 110 H (98-107) mmol/L Glucose 150 H (74-99) mg/dL POC Glucose (mg/dL) (70-110) mg/dL Calcium 7.9 L (8.4-10.2) mg/dL AST 59 H (14-36) U/L ALT (4-34) U/L Total Protein 4.7 L (6.3-8.2) g/dL Albumin 3.0 L (3.5-5.0) g/dL Arterial Blood Glucose (75-99) mg/dL Crossmatch 02/23/22 02/23/22 02/23/22 Range/Units 19:03 19:08 20:06 WBC (3.8-10.6) k/uL RBC (3.80-5.40) m/uL Hgb (11.4-16.0) gm/dL Hct (34.0-46.0) % Neutrophils # (1.3-7.7) k/uL Lymphocytes # (1.0-4.8) k/uL PT (9.0-12.0) sec INR (<1.2) ABG pH 7.32 L (7.35-7.45) ABG pCO2 50 H (35-45) mmHg ABG pO2 203 H (83-108) mmHg ABG HCO3 26 H (21-25) mmol/L ABG Total CO2 27 H (19-24) mmol/L ABG O2 Saturation 100.0 H (94-97) % ABG Hematocrit (34.0-46.0) % ABG Glucose (75-99) mg/dL ABG Lactic Acid (0.5-1.6) mmol/L Hemoglobin (11.4-16.0) gm/dL Chloride (98-107) mmol/L Glucose (74-99) mg/dL POC Glucose (mg/dL) 193 H 179 H (70-110) mg/dL Calcium (8.4-10.2) mg/dL AST (14-36) U/L ALT (4-34) U/L Total Protein (6.3-8.2) g/dL Albumin (3.5-5.0) g/dL Arterial Blood Glucose (75-99) mg/dL Crossmatch 02/23/22 02/23/22 02/23/22 Range/Units 21:03 21:35 21:56 WBC 11.8 H (3.8-10.6) k/uL RBC 3.10 L (3.80-5.40) m/uL Hgb 9.2 L (11.4-16.0) gm/dL Hct 27.9 L (34.0-46.0) % Neutrophils # 10.6 H (1.3-7.7) k/uL Lymphocytes # 0.5 L (1.0-4.8) k/uL PT (9.0-12.0) sec INR (<1.2) ABG pH (7.35-7.45) ABG pCO2 (35-45) mmHg ABG pO2 (83-108) mmHg ABG HCO3 (21-25) mmol/L ABG Total CO2 (19-24) mmol/L ABG O2 Saturation (94-97) % ABG Hematocrit (34.0-46.0) % ABG Glucose (75-99) mg/dL ABG Lactic Acid (0.5-1.6) mmol/L Hemoglobin (11.4-16.0) gm/dL Chloride (98-107) mmol/L Glucose (74-99) mg/dL POC Glucose (mg/dL) 162 H 161 H (70-110) mg/dL Calcium (8.4-10.2) mg/dL AST (14-36) U/L ALT (4-34) U/L Total Protein (6.3-8.2) g/dL Albumin (3.5-5.0) g/dL Arterial Blood Glucose (75-99) mg/dL Crossmatch 02/23/22 02/23/22 02/24/22 Range/Units 22:11 23:03 00:04 WBC (3.8-10.6) k/uL RBC (3.80-5.40) m/uL Hgb (11.4-16.0) gm/dL Hct (34.0-46.0) % Neutrophils # (1.3-7.7) k/uL Lymphocytes # (1.0-4.8) k/uL PT (9.0-12.0) sec INR (<1.2) ABG pH (7.35-7.45) ABG pCO2 (35-45) mmHg ABG pO2 80 L (83-108) mmHg ABG HCO3 (21-25) mmol/L ABG Total CO2 26 H (19-24) mmol/L ABG O2 Saturation 97.3 H (94-97) % ABG Hematocrit (34.0-46.0) % ABG Glucose (75-99) mg/dL ABG Lactic Acid (0.5-1.6) mmol/L Hemoglobin (11.4-16.0) gm/dL Chloride (98-107) mmol/L Glucose (74-99) mg/dL POC Glucose (mg/dL) 163 H 145 H (70-110) mg/dL Calcium (8.4-10.2) mg/dL AST (14-36) U/L ALT (4-34) U/L Total Protein (6.3-8.2) g/dL Albumin (3.5-5.0) g/dL Arterial Blood Glucose (75-99) mg/dL Crossmatch 02/24/22 02/24/22 02/24/22 Range/Units 00:06 00:54 01:57 WBC 10.9 H (3.8-10.6) k/uL RBC 3.18 L (3.80-5.40) m/uL Hgb 9.3 L (11.4-16.0) gm/dL Hct 28.7 L (34.0-46.0) % Neutrophils # 10.0 H (1.3-7.7) k/uL Lymphocytes # 0.4 L (1.0-4.8) k/uL PT (9.0-12.0) sec INR (<1.2) ABG pH (7.35-7.45) ABG pCO2 (35-45) mmHg ABG pO2 (83-108) mmHg ABG HCO3 (21-25) mmol/L ABG Total CO2 (19-24) mmol/L ABG O2 Saturation (94-97) % ABG Hematocrit (34.0-46.0) % ABG Glucose (75-99) mg/dL ABG Lactic Acid (0.5-1.6) mmol/L Hemoglobin (11.4-16.0) gm/dL Chloride (98-107) mmol/L Glucose (74-99) mg/dL POC Glucose (mg/dL) 130 H 119 H (70-110) mg/dL Calcium (8.4-10.2) mg/dL AST (14-36) U/L ALT (4-34) U/L Total Protein (6.3-8.2) g/dL Albumin (3.5-5.0) g/dL Arterial Blood Glucose (75-99) mg/dL Crossmatch 02/24/22 02/24/22 02/24/22 Range/Units 03:58 04:00 04:00 WBC (3.8-10.6) k/uL RBC 3.14 L (3.80-5.40) m/uL Hgb 9.3 L (11.4-16.0) gm/dL Hct 28.3 L (34.0-46.0) % Neutrophils # 8.6 H (1.3-7.7) k/uL Lymphocytes # 0.4 L (1.0-4.8) k/uL PT (9.0-12.0) sec INR (<1.2) ABG pH (7.35-7.45) ABG pCO2 (35-45) mmHg ABG pO2 (83-108) mmHg ABG HCO3 (21-25) mmol/L ABG Total CO2 (19-24) mmol/L ABG O2 Saturation (94-97) % ABG Hematocrit (34.0-46.0) % ABG Glucose (75-99) mg/dL ABG Lactic Acid (0.5-1.6) mmol/L Hemoglobin (11.4-16.0) gm/dL Chloride (98-107) mmol/L Glucose 118 H (74-99) mg/dL POC Glucose (mg/dL) 125 H (70-110) mg/dL Calcium (8.4-10.2) mg/dL AST 85 H (14-36) U/L ALT 41 H (4-34) U/L Total Protein 5.1 L (6.3-8.2) g/dL Albumin 3.4 L (3.5-5.0) g/dL Arterial Blood Glucose (75-99) mg/dL Crossmatch 02/24/22 02/24/22 02/24/22 Range/Units 04:59 06:05 07:58 WBC (3.8-10.6) k/uL RBC (3.80-5.40) m/uL Hgb (11.4-16.0) gm/dL Hct (34.0-46.0) % Neutrophils # (1.3-7.7) k/uL Lymphocytes # (1.0-4.8) k/uL PT (9.0-12.0) sec INR (<1.2) ABG pH (7.35-7.45) ABG pCO2 (35-45) mmHg ABG pO2 (83-108) mmHg ABG HCO3 (21-25) mmol/L ABG Total CO2 (19-24) mmol/L ABG O2 Saturation (94-97) % ABG Hematocrit (34.0-46.0) % ABG Glucose (75-99) mg/dL ABG Lactic Acid (0.5-1.6) mmol/L Hemoglobin (11.4-16.0) gm/dL Chloride (98-107) mmol/L Glucose (74-99) mg/dL POC Glucose (mg/dL) 126 H 120 H 120 H (70-110) mg/dL Calcium (8.4-10.2) mg/dL AST (14-36) U/L ALT (4-34) U/L Total Protein (6.3-8.2) g/dL Albumin (3.5-5.0) g/dL Arterial Blood Glucose (75-99) mg/dL Crossmatch 02/24/22 Range/Units 09:19 WBC (3.8-10.6) k/uL RBC (3.80-5.40) m/uL Hgb (11.4-16.0) gm/dL Hct (34.0-46.0) % Neutrophils # (1.3-7.7) k/uL Lymphocytes # (1.0-4.8) k/uL PT (9.0-12.0) sec INR (<1.2) ABG pH (7.35-7.45) ABG pCO2 (35-45) mmHg ABG pO2 (83-108) mmHg ABG HCO3 (21-25) mmol/L ABG Total CO2 (19-24) mmol/L ABG O2 Saturation (94-97) % ABG Hematocrit (34.0-46.0) % ABG Glucose (75-99) mg/dL ABG Lactic Acid (0.5-1.6) mmol/L Hemoglobin (11.4-16.0) gm/dL Chloride (98-107) mmol/L Glucose (74-99) mg/dL POC Glucose (mg/dL) 117 H (70-110) mg/dL Calcium (8.4-10.2) mg/dL AST (14-36) U/L ALT (4-34) U/L Total Protein (6.3-8.2) g/dL Albumin (3.5-5.0) g/dL Arterial Blood Glucose (75-99) mg/dL Crossmatch - Imaging and Cardiology Chest x-ray: report reviewed, image reviewed Assessment and Plan Assessment: 1. Coronary artery disease with left main disease, status post 2 vessel CABG 2. Hypertension 3. Hyperlipidemia, cholesterol 182, LDL 122 4. SVT, intraoperative atrial arrhythmias with cardioversion, status post left atrial appendage ligation 5. Left internal carotid artery stenosis 6. Obesity 7. Never smoker, preoperative FEV1 72% of predicted 8. History of covid infection in July 2021, remains unvaccinated against Covid 9. Family history of coronary artery disease 10. Nasal swab positive for MSSA, treated with mupirocin 11. Preserved LV function with mild to moderate mitral regurgitation on transthoracic echocardiogram 12. Acute blood loss anemia Plan: 1. Continue to maximize medical management with aspirin, Plavix, statin, beta ena. Will increase beta ena therapy as tolerated 2. Continue amiodarone for A. fib prophylaxis. Will transition to oral. No anticoagulation necessary at this point 3. Wean O2 as tolerated. Encourage incentive spirometry 10 times every hour while awake. Bronchodilators per pulmonology 4. Head of bed up 30 in one hour after balloon pump removal, bed rest for a total 4 hours then up in chair/ambulate as tolerated. PT/OT/cardiac rehab following 5. GI/DVT prophylaxis 6. Pain control with current medication regimen 7. Insulin management per primary care service. Patient is not diabetic, preoperative hemoglobin A1c 5.6% 8. Balloon pump discontinued without incident. Discontinue [place] at noon. Connect Cordis to continue CVP monitoring 9. We'll continue mediastinal/left pleural chest tubes for another 24 hours 10. Continue Boss for another 24 hours for strict accurate intake and output. Daily weights 11. More recommendations to follow
[2022-02-24] MEDS: AMIODARONE 200 MG TAB PO SCH ×2 (10:22→22:19)
[2022-02-24 11:18] LABS: Glucose,Whole Blood 116 mg/dL (70-110)
--- NOTE | 2022-02-24 12:14 | P.PN ---
Subjective Progress Note Date: 02/24/22 HISTORY OF PRESENT ILLNESS This is a pleasant 76 years old female with past medical history of Fibromyalg ia, Hyperlipidemia, Hypertension, Osteoarthritis , Supraventricular Tachycardia ,urinary incontinence-wears pad, severe left internal carotid artery stenosis followed by Dr. Fitzgerald, frequent constipation, she was admitted under cardiology service for right arm pain, chest pain and back pain for the last 3 weeks, where she underwent cardiac cath and showing critical and complex lesion involving the distal left main coronary arteries and also involving the ostial left circumflex and the distal LAD with the stenotic range is 80-90% with increase in LVEDP , Patient will need bypass procedure to open his coronary arteries. Currently she denies chest pain or dyspnea. No incontinence of urine or bowel. No fever Patient is hemodynamically stable Labs including CBC, INR, BMP and liver enzymes are unremarkable. TSH is 1.6. Urine analysis showing trace blood. coronavirus not detected. Hepatitis panel is negative Chest x-ray: Minimal interstitial edema noted Carotid duplex: No significant stenosis Echocardiogram showing ejection fraction of 50-55% with [id number] mitral regurgitation and mild tricuspid regurgitation Patient currently on heparin drip, aspirin 81 mg twice a day and normal saline at 75 mL/h as well as Lipitor and metoprolol However patient this morning she is asymptomatic she denies chest pain or dyspnea or abdominal pain. No diarrhea or vomiting or dysuria. No headache or weakness or numbness. 02/23: Patient is denying any chest pain, shortness of breath, palpitations, lightheadedness or dizziness. She is scheduled for CABG this afternoon and patient states that she is ready to move forward. No new concerns from her nurse. Patient has been afebrile, heart rate 80, blood pressure 129/78 and pulse ox 96% on room air. CBC is unremarkable. Chloride 110, CO2 20, blood sugar 112, creatinine 0.68. 02/24: Patient is status post CABG 2 with left internal mammary artery to the left anterior descending artery, reverse saphenous vein graft to the obtuse marginal artery, ligation of the left atrial appendage with a 40 mm AtriCure clip, endovascular vein harvest of the right greater saphenous vein, placement of intra-aortic balloon pump. Right groin intra-aortic balloon pump was discontinued this morning. Right internal jugular [place]ord[place], right radial arterial line, mediastinal/left pleural chest tubes remain in place. Patient is stating that she is feeling well. She has been afebrile, heart rate 75, 121/54, pulse ox 93% on 2 L. Capillary blood glucose running between 110 and 120. WBC 9.7, hemoglobin 9.3 and platelet count 195. Electrolytes and renal function normal. AST 85 and ALT 41. REVIEW OF SYSTEMS Constitutional: No fever, no chills, no night sweats. No weight change. No weakness, fatigue or lethargy. No daytime sleepiness. EENT: No headache. No blurred vision or double vision, no loss of vision. No loss of Hearing, no ringing in the ears, no dizziness. No nasal drainage or congestion. No epistaxis. No sore throat. Lungs: No shortness of breath, cough, no sputum production. No wheezing. Cardiovascular: Reports chest ache, no lower extremity edema. No palpitations. No paroxysmal nocturnal dyspnea. No orthopnea. No lightheadedness or dizziness. No syncopal episodes. Abdominal: No abdominal pain. No nausea, vomiting. No diarrhea. No constipation. No bloody or tarry stools. No loss of appetite. Genitourinary: No dysuria, increased frequency, urgency. No urinary retention. Musculoskeletal: No myalgias. No muscle weakness, no gait dysfunction, no frequent falls. No back pain. No neck pain. Integumentary: No wounds, no lesions. No rash or pruritus. No unusual bruising. No change in hair or nails. Neurologic: No aphasia. No facial droop. No change in mentation. No head injury. No headache. No paralysis. No paresthesia. Psychiatric: No depression. No anxiety. No mood swings. Endocrine: No abnormal blood sugars. No weight change. No excessive sweating or thirst. PHYSICAL EXAMINATION Gen: This is a 76-year-old overweight female. She is resting in bed and appears to be comfortable and in no acute distress. HEENT: Head is atraumatic, normocephalic. Pupils equal, round. Sclerae is anicteric. NECK: Supple. No JVD. No lymphadenopathy. No thyromegaly. Right Cordis in place. LUNGS: Clear to auscultation. No wheezes or rhonchi. No intercostal retractions. Chest tubes in place. HEART: Regular rate and rhythm. Systolic murmur. ABDOMEN: Soft. Bowel sounds are present. No masses. No tenderness. EXTREMITIES: No pedal edema. No calf tenderness. NEUROLOGICAL: Patient is awake, alert and oriented x3. Cranial nerves 2 through 12 are grossly intact. ASSESSMENT AND PLAN 1. Severe coronary artery disease status post 2 vessel CABG 02/23. Continue current plan per cardiothoracic team. Continue aspirin 325 mg daily, Lipitor 80 mg daily, Plavix 75 mg daily, continue Goodrich as needed for pain, insulin drip per protocol, DuoNeb treatments 4 times daily and as needed, Lopressor 12.5 mg twice daily. Inpatient rehab 2. Hypertension. 3. Hyperlipidemia. 4. Carotid artery disease. 5. GI prophylaxis. 6. DVT prophylaxis. DISCHARGE PLAN Most likely return home. Impression and plan of care have been directed as dictated by the signing physician. Elif Maharaj nurse practitioner acting as scribe for signing physician. Objective - Vital Signs Vital signs: Vital Signs Temp 98.8 F 02/24/22 08:00 Pulse 85 02/24/22 09:00 Resp 16 02/24/22 09:00 BP 152/77 02/23/22 11:30 Pulse Ox 94 L 02/24/22 09:00 FiO2 50 02/23/22 21:29 Intake & Output 02/23/22 02/24/22 02/24/22 18:59 06:59 18:59 Intake Total 074.197 1069.448 339.5 Output Total 1100 809 82 Balance -262.998 616.448 257.5 Weight 113.6 kg Intake: IV 583.5 1236.0 189.5 0.9 Pressure bag 9 108 18 ACETAMINOPHEN IV (For NPO 0 100 ) 1,000 mg In Empty Bag 1 bag @ 400 mls/hr IVPB Q6HR [facility] Rx#:[id number] Albumin Human 5% 250 ml 250 In Empty Bag 1 bag @ 250 mls/hr IVPB Q1HR PRN Rx#: [id number] CO/CI 20 310 70 Lactated Ringers 1,000 ml 50 600 100 @ 50 mls/hr IV .Q20H [facility] Rx#:[id number] Nitroglycerin-D5w Pmx 50 1.5 18.0 1.5 mg In Dextrose/Water 1 250ml.bag @ 5 MCG/MIN 1.5 mls/hr IV .Q24H [facility] Rx#: [id number] ceFAZolin 2 gm In Sodium 0 100 Chloride 0.9% 50 ml @ 100 mls/hr IVPB Q8H [facility] Rx#: [id number] Intake, IV Titration 253.502 89.448 0 Amount Heparin Sod,Pork in 0.45% 250 NaCl 25,000 unit In 0.45 % NaCl 1 250ml.bag @ 9.76 UNITS/KG/HR 10.004 mls/ hr IV .Q24H [facility] Rx#: [id number] Insulin Regular 100 unit 48.220 0 In Sodium Chloride 0.9% 100 ml @ Per Protocol IV .Q0M [facility] Rx#:[id number] Norepinephrine 4 mg In 26.293 Sodium Chloride 0.9% 250 ml @ 0.05 MCG/KG/MIN 19. 622 mls/hr IV .[id number] [facility] Rx#:[id number] propofoL 1,000 mg In 3.502 14.935 Empty Bag 1 bag @ Titrate IV .Q0M [facility] Rx#: [id number] Oral 100 150 Output: Chest Tube Drainage 446 50 Chest Tube Left Left 245 30 Pleural/Mediastinal Chest Tube Mediastinal 201 20 Urine 300 363 32 Estimated Blood Loss 800 Other: Voiding Method Indwelling Catheter Indwelling Catheter ABP, PAP, CO, CI - Last Documented Arterial Blood Pressure 141/58 Pulmonary Artery Pressure 37/19 Cardiac Output 4.3 Cardiac Index 2 - Labs CBC & Chem 7: 02/24/22 04:00 02/24/22 04:00 Labs: Abnormal Lab Results - Last 24 Hours (Table) 02/22/22 02/23/22 02/23/22 Range/Units 09:57 13:45 15:33 WBC (3.8-10.6) k/uL RBC (3.80-5.40) m/uL Hgb (11.4-16.0) gm/dL Hct (34.0-46.0) % Neutrophils # (1.3-7.7) k/uL Lymphocytes # (1.0-4.8) k/uL PT (9.0-12.0) sec INR (<1.2) ABG pH (7.35-7.45) ABG pCO2 (35-45) mmHg ABG pO2 168 H 82 L (83-108) mmHg ABG HCO3 (21-25) mmol/L ABG Total CO2 (19-24) mmol/L ABG O2 Saturation 99.3 H (94-97) % ABG Hematocrit 33 L 33 L (34.0-46.0) % ABG Glucose 139 H (75-99) mg/dL ABG Lactic Acid (0.5-1.6) mmol/L Hemoglobin 10.9 L 10.6 L (11.4-16.0) gm/dL Chloride (98-107) mmol/L Glucose (74-99) mg/dL POC Glucose (mg/dL) (70-110) mg/dL Calcium (8.4-10.2) mg/dL AST (14-36) U/L ALT (4-34) U/L Total Protein (6.3-8.2) g/dL Albumin (3.5-5.0) g/dL Arterial Blood Glucose 139 H (75-99) mg/dL Crossmatch See Detail 02/23/22 02/23/22 02/23/22 Range/Units 16:31 17:07 18:30 WBC (3.8-10.6) k/uL RBC (3.80-5.40) m/uL Hgb (11.4-16.0) gm/dL Hct (34.0-46.0) % Neutrophils # (1.3-7.7) k/uL Lymphocytes # (1.0-4.8) k/uL PT (9.0-12.0) sec INR (<1.2) ABG pH 7.34 L 7.34 L (7.35-7.45) ABG pCO2 (35-45) mmHg ABG pO2 187 H (83-108) mmHg ABG HCO3 20 L (21-25) mmol/L ABG Total CO2 (19-24) mmol/L ABG O2 Saturation 99.3 H 97.3 H (94-97) % ABG Hematocrit 30 L 30 L (34.0-46.0) % ABG Glucose 227 H 179 H (75-99) mg/dL ABG Lactic Acid 2.7 H* 2.8 H* (0.5-1.6) mmol/L Hemoglobin 9.8 L 9.6 L (11.4-16.0) gm/dL Chloride (98-107) mmol/L Glucose (74-99) mg/dL POC Glucose (mg/dL) 165 H (70-110) mg/dL Calcium (8.4-10.2) mg/dL AST (14-36) U/L ALT (4-34) U/L Total Protein (6.3-8.2) g/dL Albumin (3.5-5.0) g/dL Arterial Blood Glucose 227 H 179 H (75-99) mg/dL Crossmatch 02/23/22 02/23/22 02/23/22 Range/Units 18:32 18:32 18:32 WBC 11.6 H (3.8-10.6) k/uL RBC 3.19 L (3.80-5.40) m/uL Hgb 9.4 L D (11.4-16.0) gm/dL Hct 29.0 L (34.0-46.0) % Neutrophils # 10.4 H (1.3-7.7) k/uL Lymphocytes # 0.7 L (1.0-4.8) k/uL PT 12.8 H (9.0-12.0) sec INR 1.2 H (<1.2) ABG pH (7.35-7.45) ABG pCO2 (35-45) mmHg ABG pO2 (83-108) mmHg ABG HCO3 (21-25) mmol/L ABG Total CO2 (19-24) mmol/L ABG O2 Saturation (94-97) % ABG Hematocrit (34.0-46.0) % ABG Glucose (75-99) mg/dL ABG Lactic Acid (0.5-1.6) mmol/L Hemoglobin (11.4-16.0) gm/dL Chloride 110 H (98-107) mmol/L Glucose 150 H (74-99) mg/dL POC Glucose (mg/dL) (70-110) mg/dL Calcium 7.9 L (8.4-10.2) mg/dL AST 59 H (14-36) U/L ALT (4-34) U/L Total Protein 4.7 L (6.3-8.2) g/dL Albumin 3.0 L (3.5-5.0) g/dL Arterial Blood Glucose (75-99) mg/dL Crossmatch 02/23/22 02/23/22 02/23/22 Range/Units 19:03 19:08 20:06 WBC (3.8-10.6) k/uL RBC (3.80-5.40) m/uL Hgb (11.4-16.0) gm/dL Hct (34.0-46.0) % Neutrophils # (1.3-7.7) k/uL Lymphocytes # (1.0-4.8) k/uL PT (9.0-12.0) sec INR (<1.2) ABG pH 7.32 L (7.35-7.45) ABG pCO2 50 H (35-45) mmHg ABG pO2 203 H (83-108) mmHg ABG HCO3 26 H (21-25) mmol/L ABG Total CO2 27 H (19-24) mmol/L ABG O2 Saturation 100.0 H (94-97) % ABG Hematocrit (34.0-46.0) % ABG Glucose (75-99) mg/dL ABG Lactic Acid (0.5-1.6) mmol/L Hemoglobin (11.4-16.0) gm/dL Chloride (98-107) mmol/L Glucose (74-99) mg/dL POC Glucose (mg/dL) 193 H 179 H (70-110) mg/dL Calcium (8.4-10.2) mg/dL AST (14-36) U/L ALT (4-34) U/L Total Protein (6.3-8.2) g/dL Albumin (3.5-5.0) g/dL Arterial Blood Glucose (75-99) mg/dL Crossmatch 02/23/22 02/23/22 02/23/22 Range/Units 21:03 21:35 21:56 WBC 11.8 H (3.8-10.6) k/uL RBC 3.10 L (3.80-5.40) m/uL Hgb 9.2 L (11.4-16.0) gm/dL Hct 27.9 L (34.0-46.0) % Neutrophils # 10.6 H (1.3-7.7) k/uL Lymphocytes # 0.5 L (1.0-4.8) k/uL PT (9.0-12.0) sec INR (<1.2) ABG pH (7.35-7.45) ABG pCO2 (35-45) mmHg ABG pO2 (83-108) mmHg ABG HCO3 (21-25) mmol/L ABG Total CO2 (19-24) mmol/L ABG O2 Saturation (94-97) % ABG Hematocrit (34.0-46.0) % ABG Glucose (75-99) mg/dL ABG Lactic Acid (0.5-1.6) mmol/L Hemoglobin (11.4-16.0) gm/dL Chloride (98-107) mmol/L Glucose (74-99) mg/dL POC Glucose (mg/dL) 162 H 161 H (70-110) mg/dL Calcium (8.4-10.2) mg/dL AST (14-36) U/L ALT (4-34) U/L Total Protein (6.3-8.2) g/dL Albumin (3.5-5.0) g/dL Arterial Blood Glucose (75-99) mg/dL Crossmatch 02/23/22 02/23/22 02/24/22 Range/Units 22:11 23:03 00:04 WBC (3.8-10.6) k/uL RBC (3.80-5.40) m/uL Hgb (11.4-16.0) gm/dL Hct (34.0-46.0) % Neutrophils # (1.3-7.7) k/uL Lymphocytes # (1.0-4.8) k/uL PT (9.0-12.0) sec INR (<1.2) ABG pH (7.35-7.45) ABG pCO2 (35-45) mmHg ABG pO2 80 L (83-108) mmHg ABG HCO3 (21-25) mmol/L ABG Total CO2 26 H (19-24) mmol/L ABG O2 Saturation 97.3 H (94-97) % ABG Hematocrit (34.0-46.0) % ABG Glucose (75-99) mg/dL ABG Lactic Acid (0.5-1.6) mmol/L Hemoglobin (11.4-16.0) gm/dL Chloride (98-107) mmol/L Glucose (74-99) mg/dL POC Glucose (mg/dL) 163 H 145 H (70-110) mg/dL Calcium (8.4-10.2) mg/dL AST (14-36) U/L ALT (4-34) U/L Total Protein (6.3-8.2) g/dL Albumin (3.5-5.0) g/dL Arterial Blood Glucose (75-99) mg/dL Crossmatch 02/24/22 02/24/22 02/24/22 Range/Units 00:06 00:54 01:57 WBC 10.9 H (3.8-10.6) k/uL RBC 3.18 L (3.80-5.40) m/uL Hgb 9.3 L (11.4-16.0) gm/dL Hct 28.7 L (34.0-46.0) % Neutrophils # 10.0 H (1.3-7.7) k/uL Lymphocytes # 0.4 L (1.0-4.8) k/uL PT (9.0-12.0) sec INR (<1.2) ABG pH (7.35-7.45) ABG pCO2 (35-45) mmHg ABG pO2 (83-108) mmHg ABG HCO3 (21-25) mmol/L ABG Total CO2 (19-24) mmol/L ABG O2 Saturation (94-97) % ABG Hematocrit (34.0-46.0) % ABG Glucose (75-99) mg/dL ABG Lactic Acid (0.5-1.6) mmol/L Hemoglobin (11.4-16.0) gm/dL Chloride (98-107) mmol/L Glucose (74-99) mg/dL POC Glucose (mg/dL) 130 H 119 H (70-110) mg/dL Calcium (8.4-10.2) mg/dL AST (14-36) U/L ALT (4-34) U/L Total Protein (6.3-8.2) g/dL Albumin (3.5-5.0) g/dL Arterial Blood Glucose (75-99) mg/dL Crossmatch 02/24/22 02/24/22 02/24/22 Range/Units 03:58 04:00 04:00 WBC (3.8-10.6) k/uL RBC 3.14 L (3.80-5.40) m/uL Hgb 9.3 L (11.4-16.0) gm/dL Hct 28.3 L (34.0-46.0) % Neutrophils # 8.6 H (1.3-7.7) k/uL Lymphocytes # 0.4 L (1.0-4.8) k/uL PT (9.0-12.0) sec INR (<1.2) ABG pH (7.35-7.45) ABG pCO2 (35-45) mmHg ABG pO2 (83-108) mmHg ABG HCO3 (21-25) mmol/L ABG Total CO2 (19-24) mmol/L ABG O2 Saturation (94-97) % ABG Hematocrit (34.0-46.0) % ABG Glucose (75-99) mg/dL ABG Lactic Acid (0.5-1.6) mmol/L Hemoglobin (11.4-16.0) gm/dL Chloride (98-107) mmol/L Glucose 118 H (74-99) mg/dL POC Glucose (mg/dL) 125 H (70-110) mg/dL Calcium (8.4-10.2) mg/dL AST 85 H (14-36) U/L ALT 41 H (4-34) U/L Total Protein 5.1 L (6.3-8.2) g/dL Albumin 3.4 L (3.5-5.0) g/dL Arterial Blood Glucose (75-99) mg/dL Crossmatch 02/24/22 02/24/22 02/24/22 Range/Units 04:59 06:05 07:58 WBC (3.8-10.6) k/uL RBC (3.80-5.40) m/uL Hgb (11.4-16.0) gm/dL Hct (34.0-46.0) % Neutrophils # (1.3-7.7) k/uL Lymphocytes # (1.0-4.8) k/uL PT (9.0-12.0) sec INR (<1.2) ABG pH (7.35-7.45) ABG pCO2 (35-45) mmHg ABG pO2 (83-108) mmHg ABG HCO3 (21-25) mmol/L ABG Total CO2 (19-24) mmol/L ABG O2 Saturation (94-97) % ABG Hematocrit (34.0-46.0) % ABG Glucose (75-99) mg/dL ABG Lactic Acid (0.5-1.6) mmol/L Hemoglobin (11.4-16.0) gm/dL Chloride (98-107) mmol/L Glucose (74-99) mg/dL POC Glucose (mg/dL) 126 H 120 H 120 H (70-110) mg/dL Calcium (8.4-10.2) mg/dL AST (14-36) U/L ALT (4-34) U/L Total Protein (6.3-8.2) g/dL Albumin (3.5-5.0) g/dL Arterial Blood Glucose (75-99) mg/dL Crossmatch
[2022-02-24 12:30] LABS: Glucose,Whole Blood 123 mg/dL (70-110)
[2022-02-24 13:03] LABS: Glucose,Whole Blood 125 mg/dL (70-110)
[2022-02-24 14:01] LABS: Glucose,Whole Blood 112 mg/dL (70-110)
[2022-02-24] MEDS: ALBUMIN HUMAN 5% 250 ML in EMPTY BAG 1 BAG IVPB PRN (15:07)
[2022-02-24 15:20] LABS: Glucose,Whole Blood 135 mg/dL (70-110)
[2022-02-24] MEDS ORDERED: ALBUMIN HUMAN 5% 500 ML in EMPTY BAG 1 BAG IVPB ONE (16:07)
[2022-02-24 16:35] LABS: Glucose,Whole Blood 132 mg/dL (70-110)
[2022-02-24 17:33] LABS: Glucose,Whole Blood 132 mg/dL (70-110)
[2022-02-24] MEDS: LACTATED RINGERS 1,000 ML IV SCH (17:43)
[2022-02-24 18:29] LABS: Glucose,Whole Blood 142 mg/dL (70-110)
[2022-02-24] MEDS ORDERED: FUROSEMIDE 10 MG/ML 4 ML VIAL IV STA (19:05)
[2022-02-24 19:12] LABS: Glucose,Whole Blood 142 mg/dL (70-110)
--- NOTE | 2022-02-24 19:30 | XR ---
EXAMINATION TYPE: XR chest 1V portable DATE OF EXAM: 02/24/2022 COMPARISON: Today HISTORY: Hypoxemia TECHNIQUE: FINDINGS: There is poor inspiration. There is some atelectasis and pleural reaction at the lung bases . There is right jugular catheter with tip in the main pulmonary artery. There are sternal wires. The re is a drain over the left chest. IMPRESSION: There is some pleural reaction and atelectasis at the lung bases increased comparing to exam this mor eric. No heart failure seen.
[2022-02-24 20:14] LABS: Glucose,Whole Blood 137 mg/dL (70-110)
[2022-02-24] MEDS ORDERED: DEXTROSE/WATER 1 250ML.BAG with DOPamine DRIP 800 MG IV SCH (21:00)
[2022-02-24 21:05] LABS: Glucose,Whole Blood 127 mg/dL (70-110)
[2022-02-24 21:18] LABS: ABG Base Excess 0.5 mmol/L; ABG HCO3 25 mmol/L (21-25); ABG Oxygen Saturation 95.6 % (94-97); ABG PCO2 39 mmHg (35-45); ABG PH 7.42 (7.35-7.45); ABG PO2 70 mmHg (83-108); ABG TCO2 26 mmol/L (19-24); Allen Test Performed? Yes
[2022-02-24 22:10] LABS: Glucose,Whole Blood 119 mg/dL (70-110)
[2022-02-24] MEDS: SENNOSIDES-DOCUSATE SODIUM 1 EACH TAB PO SCH (22:19)
[2022-02-24 23:10] LABS: Glucose,Whole Blood 130 mg/dL (70-110)
[2022-02-24 23:58] LABS: Glucose,Whole Blood 134 mg/dL (70-110)
[2022-02-25] MEDS: HEPARIN SODIUM,PORCINE/PF 5,000 UNIT/0.5 ML SYRINGE SQ SCH ×4 (00:04→23:44)
[2022-02-25 01:03] LABS: Glucose,Whole Blood 121 mg/dL (70-110)
[2022-02-25 02:08] LABS: Glucose,Whole Blood 123 mg/dL (70-110)
[2022-02-25 03:08] LABS: Glucose,Whole Blood 117 mg/dL (70-110)
[2022-02-25 04:07] LABS: Glucose,Whole Blood 118 mg/dL (70-110)
[2022-02-25 04:33] LABS: Basophils % (A) 0 %; Eosinophils % (A) 0 %; HCT 29.9 % (34.0-46.0); HGB 9.8 gm/dL (11.4-16.0); Hypochromasia Slight; Lymphocytes # (A) 0.7 k/uL (1.0-4.8); Lymphocytes % (A) 5 %; MCH 30.1 pg (25.0-35.0); MCHC 32.9 g/dL (31.0-37.0); MCV 91.5 fL (80.0-100.0); Mean Platelet Volume 8.2; Monocytes # (A) 0.8 k/uL (0-1.0); Monocytes % (A) 7 %; Neutrophils # (A) 10.9 k/uL (1.3-7.7); Neutrophils % (A) 87 %; Platelet Count 192 k/uL (150-450); RBC 3.26 m/uL (3.80-5.40); RDW 14.9 % (11.5-15.5); WBC 12.5 k/uL (3.8-10.6)
[2022-02-25 05:12] LABS: Glucose,Whole Blood 116 mg/dL (70-110)
[2022-02-25] MEDS: INSULIN REGULAR 100 UNIT in SODIUM CHLORIDE 0.9% 100 ML IV SCH (05:14)
[2022-02-25 05:18] LABS: Ionized Calcium 4.9 mg/dL (4.5-5.3)
[2022-02-25 05:26] LABS: ALT 41 U/L (4-34); AST 79 U/L (14-36); African American GFR (CKD) >90 (>60 ml/min/1.73 sqM); Albumin 3.5 g/dL (3.5-5.0); Alkaline Phosphatase 59 U/L (38-126); Anion Gap 4 mmol/L; Blood Urea Nitrogen 18 mg/dL (7-17); Calcium 8.5 mg/dL (8.4-10.2); Carbon Dioxide 26 mmol/L (22-30); Chloride 106 mmol/L (98-107); Glucose 108 mg/dL (74-99); Non-African American GFR(CKD) 87 (>60 ml/min/1.73 sqM); Potassium 3.7 mmol/L (3.5-5.1); Sodium 136 mmol/L (137-145); Total Bilirubin 0.8 mg/dL (0.2-1.3); Total Protein 5.3 g/dL (6.3-8.2)
[2022-02-25 05:47] LABS: ABG HCO3 26 mmol/L (21-25); ABG Oxygen Saturation 92.3 % (94-97); ABG PCO2 35 mmHg (35-45); ABG PH 7.49 (7.35-7.45); ABG TCO2 28 mmol/L (19-24); Allen Test Performed? Yes
[2022-02-25 05:50] LABS: ABG PO2 55 mmHg (83-108)
[2022-02-25 06:01] LABS: Glucose,Whole Blood 107 mg/dL (70-110)
[2022-02-25] MEDS ORDERED: Potassium Replacement Protocol 1 EACH MISC MISCELLANE PRN (06:02)
[2022-02-25] MEDS: POTASSIUM CHLORIDE 10 MEQ in WATER FOR INJECTION 1 100ML.BAG IVPB SCH ×2 (06:20→07:25)
[2022-02-25] MEDS: PANTOPRAZOLE 40 MG TABLET PO SCH (06:34)
[2022-02-25 07:04] LABS: Glucose,Whole Blood 123 mg/dL (70-110)
[2022-02-25] MEDS: IPRATROPIUM-ALBUTEROL 3 ML NEB INHALATION SCH ×4 (07:05→19:30)
--- NOTE | 2022-02-25 07:55 | P.PN ---
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 Previous medical history of hypertension, hyperlipidemia, SVT, left internal carotid artery stenosis, obesity, never smoker, remains unvaccinated against Covid, family history of coronary artery disease POD #2 off-pump coronary artery bypass grafting 2 with left internal mammary artery to the left anterior descending artery, reverse saphenous vein graft to the obtuse marginal artery, ligation of the left atrial appendage with a 40 mm AtriCure clip, endovascular vein harvest of the right greater saphenous vein, placement of intra-aortic balloon pump Postoperative acute blood loss anemia, expected given hemodilution Acute hypoxic respiratory failure requiring bipap The patient was seen and examined this morning sitting up in bed in the intensive care unit in no acute distress. She was successfully extubated yesterday, balloon pump was discontinued and patient was eventually allowed to get up in the recliner. Her blood pressure started to dwindle down, CO/CI/CVP started to drop. Patient was given IV fluids which demonstrated some improvement in BP/CO/CI/CVP but respiratory status started to struggle. She was given IV lasix with good diuresis but still continued to struggle with her oxygenation, she was placed on bipap. This morning she remains on bipap, FiO2 100%, 12/6 with oxygen sat 96%. Was placed on low dose dopamine last night, BP stable this am with improvement in urine output. Remains in sinus rhythm. WBC 12.5 this am, was 9.7 yesterday. Tmax 100.4F in the last 24 hours. Urine looks cloudy, will send for culture. She denies any pain, doesn't like the bipap because it's making her mouth dry, otherwise she has no new complaints. Right internal jugular [place]ordis, right radial arterial line, mediastinal/left pleural chest tubes all remaining. Objective - Vital Signs Vital signs: Vital Signs Temp 100.4 F H 02/25/22 04:00 Pulse 82 02/25/22 07:23 Resp 26 H 02/25/22 07:00 BP 148/82 02/25/22 07:00 Pulse Ox 96 02/25/22 07:00 FiO2 100 02/25/22 07:05 Intake & Output 02/24/22 02/25/22 02/25/22 18:59 06:59 18:59 Intake Total 2037.504 565.251 39 Output Total 782 1345 30 Balance 1255.504 -383.749 9 Weight 113.6 kg 111 kg Intake: IV 819.5 468 39 0.9 Pressure bag 108 108 9 CO/CI 240 Lactated Ringers 1,000 ml 470 360 30 @ 20 mls/hr IV .Q24H [facility] Rx#:[id number] Nitroglycerin-D5w Pmx 50 1.5 mg In Dextrose/Water 1 250ml.bag @ 5 MCG/MIN 1.5 mls/hr IV .Q24H [facility] Rx#: [id number] Intake, IV Titration 268.004 37.251 Amount Amiodarone 450 mg In 250 Dextrose 5% in Water 250 ml @ 0.5 MG/MIN 16.667 mls/hr IV .Q15H [facility] Rx#: [id number] Insulin Regular 100 unit 18.004 37.251 In Sodium Chloride 0.9% 100 ml @ Per Protocol IV .Q0M [facility] Rx#:[id number] Oral 850 60 Tube Feeding 100 Output: Chest Tube Drainage 590 250 0 Chest Tube Left Left 320 130 0 Pleural/Mediastinal Chest Tube Mediastinal 270 120 0 Urine 192 1095 30 Other: Voiding Method Indwelling Catheter Indwelling Catheter ABP, PAP, CO, CI - Last Documented Arterial Blood Pressure 223/223 Pulmonary Artery Pressure 40/20 Cardiac Output 4.3 Cardiac Index 2 - Exam CONSTITUTIONAL: Appears comfortable, cooperative, no acute distress RESPIRATORY: Lungs sounds diminished bilaterally, right greater than left. Respirations even, nonlabored. Currently on bipap, FiO2 100%, 12/6 with oxygen saturation 96%. Strong cough. CARDIOVASCULAR: S1, S2 present. Regular rate and rhythm, sinus rhythm on telemetry. Sternum stable. Palpable peripheral pulses bilaterally. No edema present. No calf pain or tenderness noted. Heart hugger in place with patient demonstrating appropriate use. Antiembolism stockings, SCDs present. GASTROINTESTINAL: Abdomen soft, nontender, nondistended. Hypoactive bowel sounds present 4 quadrants, tympanic to percussion. Tolerating liquids. Antoni es flatus GENITOURINARY: Boss present draining cloudy, yellow urine. Output overnight 30-100 mL per hour, 1287 mL in the last 24 hours INTEGUMENTARY: Skin is warm and dry with evidence of good perfusion. Anterior chest incision well approximated and covered with dry intact dressing. Right lower extremity EVH site well approximated without redness or drainage. NEUROLOGIC: Cranial nerves II through XII intact MUSKULOSKELETAL: Able to move all extremities, strength equal bilaterally PSYCHIATRIC: Alert and oriented to person place and time, appropriate affect, intact judgment and insight INVASIVE LINES AND TUBES: Mediastinal/left pleural chest tubes present and connected to wall suction, no air leaks present. Mediastinal tube with 80 mL serosanguineous drainage overnight, 400 mL in the last 24 hours. Left pleural chest tube with 60 mL serosanguineous drainage overnight, 400 mL in the last 24 hours. Right internal jugular [place]ordis, right radial arterial line present. Last CO/CI 4.3/2.0, PA 39/20, CVP 15. - Allied health notes Allied health notes reviewed: nursing - Labs CBC & Chem 7: 02/25/22 04:20 02/25/22 04:20 Labs: Abnormal Lab Results - Last 24 Hours (Table) 02/24/22 02/24/22 02/24/22 Range/Units 07:58 09:19 10:16 WBC (3.8-10.6) k/uL RBC (3.80-5.40) m/uL Hgb (11.4-16.0) gm/dL Hct (34.0-46.0) % Neutrophils # (1.3-7.7) k/uL Lymphocytes # (1.0-4.8) k/uL ABG pH (7.35-7.45) ABG pO2 (83-108) mmHg ABG HCO3 (21-25) mmol/L ABG Total CO2 (19-24) mmol/L ABG O2 Saturation (94-97) % Sodium (137-145) mmol/L BUN (7-17) mg/dL Glucose (74-99) mg/dL POC Glucose (mg/dL) 120 H 117 H 114 H (70-110) mg/dL AST (14-36) U/L ALT (4-34) U/L Total Protein (6.3-8.2) g/dL 02/24/22 02/24/22 02/24/22 Range/Units 11:16 12:29 13:01 WBC (3.8-10.6) k/uL RBC (3.80-5.40) m/uL Hgb (11.4-16.0) gm/dL Hct (34.0-46.0) % Neutrophils # (1.3-7.7) k/uL Lymphocytes # (1.0-4.8) k/uL ABG pH (7.35-7.45) ABG pO2 (83-108) mmHg ABG HCO3 (21-25) mmol/L ABG Total CO2 (19-24) mmol/L ABG O2 Saturation (94-97) % Sodium (137-145) mmol/L BUN (7-17) mg/dL Glucose (74-99) mg/dL POC Glucose (mg/dL) 116 H 123 H 125 H (70-110) mg/dL AST (14-36) U/L ALT (4-34) U/L Total Protein (6.3-8.2) g/dL 02/24/22 02/24/22 02/24/22 Range/Units 13:59 15:18 16:33 WBC (3.8-10.6) k/uL RBC (3.80-5.40) m/uL Hgb (11.4-16.0) gm/dL Hct (34.0-46.0) % Neutrophils # (1.3-7.7) k/uL Lymphocytes # (1.0-4.8) k/uL ABG pH (7.35-7.45) ABG pO2 (83-108) mmHg ABG HCO3 (21-25) mmol/L ABG Total CO2 (19-24) mmol/L ABG O2 Saturation (94-97) % Sodium (137-145) mmol/L BUN (7-17) mg/dL Glucose (74-99) mg/dL POC Glucose (mg/dL) 112 H 135 H 132 H (70-110) mg/dL AST (14-36) U/L ALT (4-34) U/L Total Protein (6.3-8.2) g/dL 02/24/22 02/24/22 02/24/22 Range/Units 17:32 18:27 19:10 WBC (3.8-10.6) k/uL RBC (3.80-5.40) m/uL Hgb (11.4-16.0) gm/dL Hct (34.0-46.0) % Neutrophils # (1.3-7.7) k/uL Lymphocytes # (1.0-4.8) k/uL ABG pH (7.35-7.45) ABG pO2 (83-108) mmHg ABG HCO3 (21-25) mmol/L ABG Total CO2 (19-24) mmol/L ABG O2 Saturation (94-97) % Sodium (137-145) mmol/L BUN (7-17) mg/dL Glucose (74-99) mg/dL POC Glucose (mg/dL) 132 H 142 H 142 H (70-110) mg/dL AST (14-36) U/L ALT (4-34) U/L Total Protein (6.3-8.2) g/dL 02/24/22 02/24/22 02/24/22 Range/Units 20:12 21:04 21:06 WBC (3.8-10.6) k/uL RBC (3.80-5.40) m/uL Hgb (11.4-16.0) gm/dL Hct (34.0-46.0) % Neutrophils # (1.3-7.7) k/uL Lymphocytes # (1.0-4.8) k/uL ABG pH (7.35-7.45) ABG pO2 70 L (83-108) mmHg ABG HCO3 (21-25) mmol/L ABG Total CO2 26 H (19-24) mmol/L ABG O2 Saturation (94-97) % Sodium (137-145) mmol/L BUN (7-17) mg/dL Glucose (74-99) mg/dL POC Glucose (mg/dL) 137 H 127 H (70-110) mg/dL AST (14-36) U/L ALT (4-34) U/L Total Protein (6.3-8.2) g/dL 02/24/22 02/24/22 02/24/22 Range/Units 22:07 23:08 23:56 WBC (3.8-10.6) k/uL RBC (3.80-5.40) m/uL Hgb (11.4-16.0) gm/dL Hct (34.0-46.0) % Neutrophils # (1.3-7.7) k/uL Lymphocytes # (1.0-4.8) k/uL ABG pH (7.35-7.45) ABG pO2 (83-108) mmHg ABG HCO3 (21-25) mmol/L ABG Total CO2 (19-24) mmol/L ABG O2 Saturation (94-97) % Sodium (137-145) mmol/L BUN (7-17) mg/dL Glucose (74-99) mg/dL POC Glucose (mg/dL) 119 H 130 H 134 H (70-110) mg/dL AST (14-36) U/L ALT (4-34) U/L Total Protein (6.3-8.2) g/dL 02/25/22 02/25/22 02/25/22 Range/Units 01:02 02:06 03:05 WBC (3.8-10.6) k/uL RBC (3.80-5.40) m/uL Hgb (11.4-16.0) gm/dL Hct (34.0-46.0) % Neutrophils # (1.3-7.7) k/uL Lymphocytes # (1.0-4.8) k/uL ABG pH (7.35-7.45) ABG pO2 (83-108) mmHg ABG HCO3 (21-25) mmol/L ABG Total CO2 (19-24) mmol/L ABG O2 Saturation (94-97) % Sodium (137-145) mmol/L BUN (7-17) mg/dL Glucose (74-99) mg/dL POC Glucose (mg/dL) 121 H 123 H 117 H (70-110) mg/dL AST (14-36) U/L ALT (4-34) U/L Total Protein (6.3-8.2) g/dL 02/25/22 02/25/22 02/25/22 Range/Units 04:06 04:20 04:20 WBC 12.5 H (3.8-10.6) k/uL RBC 3.26 L (3.80-5.40) m/uL Hgb 9.8 L (11.4-16.0) gm/dL Hct 29.9 L (34.0-46.0) % Neutrophils # 10.9 H (1.3-7.7) k/uL Lymphocytes # 0.7 L (1.0-4.8) k/uL ABG pH (7.35-7.45) ABG pO2 (83-108) mmHg ABG HCO3 (21-25) mmol/L ABG Total CO2 (19-24) mmol/L ABG O2 Saturation (94-97) % Sodium 136 L (137-145) mmol/L BUN 18 H (7-17) mg/dL Glucose 108 H (74-99) mg/dL POC Glucose (mg/dL) 118 H (70-110) mg/dL AST 79 H (14-36) U/L ALT 41 H (4-34) U/L Total Protein 5.3 L (6.3-8.2) g/dL 02/25/22 02/25/22 02/25/22 Range/Units 05:10 05:43 07:02 WBC (3.8-10.6) k/uL RBC (3.80-5.40) m/uL Hgb (11.4-16.0) gm/dL Hct (34.0-46.0) % Neutrophils # (1.3-7.7) k/uL Lymphocytes # (1.0-4.8) k/uL ABG pH 7.49 H (7.35-7.45) ABG pO2 55 L* (83-108) mmHg ABG HCO3 26 H (21-25) mmol/L ABG Total CO2 28 H (19-24) mmol/L ABG O2 Saturation 92.3 L (94-97) % Sodium (137-145) mmol/L BUN (7-17) mg/dL Glucose (74-99) mg/dL POC Glucose (mg/dL) 116 H 123 H (70-110) mg/dL AST (14-36) U/L ALT (4-34) U/L Total Protein (6.3-8.2) g/dL - Imaging and Cardiology Chest x-ray: image reviewed Assessment and Plan Assessment: 1. Coronary artery disease with left main disease, status post 2 vessel CABG 2. Hypertension, currently hypotensive on low dose dopamine 3. Hyperlipidemia, cholesterol 182, LDL 122 4. SVT, intraoperative atrial arrhythmias with cardioversion, status post left atrial appendage ligation 5. Left internal carotid artery stenosis 6. Obesity 7. Never smoker, preoperative FEV1 72% of predicted 8. History of covid infection in July 2021, remains unvaccinated against Covid 9. Family history of coronary artery disease 10. Nasal swab positive for MSSA, treated with mupirocin 11. Preserved LV function with mild to moderate mitral regurgitation on transthoracic echocardiogram 12. Acute blood loss anemia 13. Acute hypoxic respiratory failure requiring bipap 14. Leukocytosis with low grade fever, urine culture sent Plan: 1. Continue to maximize medical management with aspirin, Plavix, statin, beta ena. Will increase beta ena therapy as tolerated. Will discontinue dopamine 2. Continue amiodarone for A. fib prophylaxis. No anticoagulation necessary at this point 3. Wean O2 as tolerated. Encourage incentive spirometry 10 times every hour while awake once off bipap. Bronchodilators per pulmonology 4. Increase activity as tolerated. PT/OT/cardiac rehab following 5. GI/DVT prophylaxis 6. Will monitor daily labs and CXRs. Electrolyte replacement per protocol. Urine culture sent. Will give IV lasix 7. Pain control with current medication regimen 8. Insulin management per primary care service. Patient is not diabetic, preoperative hemoglobin A1c 5.6% 9. Will discontinue mediastinal/left pleural chest tubes 10. Continue Boss for another 24 hours for strict accurate intake and output. Daily weights 11. More recommendations to follow
[2022-02-25 08:16] LABS: Amorphous Sediment,Urine Moderate /hpf; Appearance,Urine Turbid (Clear); Bilirubin,Urine Negative (Negative); Blood,Urine Small (Negative); Color,Urine Light Orange; Glucose,Urine (UA) Negative (Negative); Ketones,Urine Negative (Negative); Leukocyte Esterase,Urine Negative (Negative); Mucus,Urine Moderate /hpf; Nitrite,Urine Negative (Negative); PH, Urine 5.5 (5.0-8.0); Protein,Urine Trace (Negative); Specific Gravity,Urine 1.022 (1.001-1.035)
[2022-02-25] MEDS ORDERED: FUROSEMIDE 10 MG/ML 4 ML VIAL IV STA (08:20)
[2022-02-25 08:26] LABS: Glucose,Whole Blood 124 mg/dL (70-110)
[2022-02-25] MEDS: AMIODARONE 200 MG TAB PO SCH ×2 (08:33→20:21)
[2022-02-25] MEDS: CLOPIDOGREL 75 MG TAB PO SCH (08:33)
[2022-02-25] MEDS: ATORVASTATIN 80 MG TAB PO SCH (08:33)
[2022-02-25] MEDS: METOPROLOL TARTRATE 12.5 MG TAB PO SCH (08:33)
[2022-02-25] MEDS: ASPIRIN 325 MG TAB PO SCH (08:33)
[2022-02-25] MEDS: MUPIROCIN 2% OINT 22 GM TUBE NASAL SCH ×2 (08:34→20:22)
--- NOTE | 2022-02-25 08:37 | P.PN ---
Subjective Progress Note Date: 02/25/22 PROGRESS NOTE The patient is a 76-year-old female with history of carotid vascular disease who presented with symptoms of progressive chest discomfort and an abnormal MPI. Underwent cardiac catheterization on the and was found to have severe distal left main disease with [id number] disease in the RCA. She is scheduled to undergo CABG today. Her echo showed an ejection fraction of 50% with mild lateral wall hypokinesis and [id number] mitral regurgitation. She's feeling well this morning, denies any chest discomfort or dizziness. She is in sinus mechanism. Scheduled to undergo CABG this afternoon. She continues to be on aspirin, Lipitor 80 mg daily, isosorbide mononitrate 15 mg daily, lisinopril 30 mg daily, metoprolol succinate 25 mg daily February 24: The patient underwent off-pump CABG yesterday with RAMOS to the LAD and SVG to the OM with ligation of the left atrial appendage and placement of intra-aortic balloon pump because of worsening ischemia at the start of surgery. She had atrial arrhythmia requiring cardioversion earlier. She is extubated, in sinus mechanism, intra-aortic balloon pump at 1:2 with good blood pressure and urinary output. She is on no vasopressor. She is awake, alert and following commands. At the end of the procedure she had a good ejection fraction with mild mitral regurgitation. She continues to be on aspirin, Lipitor 80 mg daily, Plavix 75 mg daily, metoprolol tartrate 12-1/2 mg twice a day. February 25: The patient intra-aortic balloon pump was removed yesterday. She was hypoxemic during the night requiring BiPAP. She denies any chest discomfort. She continues to be in sinus mechanism. She denies any chest discomfort, dizziness or palpitations. She received diuretics yesterday with good output. She continues to be on aspirin, Plavix, low-dose dopamine, metoprolol 12-1/2 mg twice a day, Lipitor 80 mg daily. Her chest x-ray shows bilateral pleural effusion PHYSICAL EXAMINATION: Blood pressure 148/80 with a heart rate in the 80s LUNGS: Decreased breath sounds at the bases HEART: Regular rate and rhythm, S1, S2. No S3. systolic murmur at the base ABDOMEN: Soft, nontender, no organomegaly EXTREMETIES: No edema, right groin no hematoma LAB: Hemoglobin 9.8, BUN 18, creatinine 0.65, potassium 3.7 IMPRESSION: 1. Status post CABG, RAMOS to the LAD and SVG to obtuse marginal branch with known severe left main disease. 2. Post removal of Intra-aortic balloon pump 3. History of hyperlipidemia 4. Hypoxemia with lung congestion and evidence of fluid overload PLAN: 1. IV diuretics as needed 2. Adjust dose of beta ena depending on the blood pressure after weaning IV dopamine 3. Depending on the trend of her blood pressure further recommendations will be made. 4. If further episodes of atrial fibrillation, may require anticoagulation. Objective - Vital Signs Vital signs: Vital Signs Temp 100.4 F H 02/25/22 04:00 Pulse 82 02/25/22 07:23 Resp 26 H 02/25/22 07:00 BP 148/82 02/25/22 07:00 Pulse Ox 96 02/25/22 07:00 FiO2 100 02/25/22 07:05 Intake & Output 02/24/22 02/25/22 02/25/22 18:59 06:59 18:59 Intake Total 2037.504 565.251 39 Output Total 782 1345 30 Balance 1255.504 -779.749 9 Weight 113.6 kg 111 kg Intake: IV 819.5 468 39 0.9 Pressure bag 108 108 9 CO/CI 240 Lactated Ringers 1,000 ml 470 360 30 @ 20 mls/hr IV .Q24H [facility] Rx#:[id number] Nitroglycerin-D5w Pmx 50 1.5 mg In Dextrose/Water 1 250ml.bag @ 5 MCG/MIN 1.5 mls/hr IV .Q24H [facility] Rx#: [id number] Intake, IV Titration 268.004 37.251 Amount Amiodarone 450 mg In 250 Dextrose 5% in Water 250 ml @ 0.5 MG/MIN 16.667 mls/hr IV .Q15H [facility] Rx#: [id number] Insulin Regular 100 unit 18.004 37.251 In Sodium Chloride 0.9% 100 ml @ Per Protocol IV .Q0M [facility] Rx#:[id number] Oral 850 60 Tube Feeding 100 Output: Chest Tube Drainage 590 250 0 Chest Tube Left Left 320 130 0 Pleural/Mediastinal Chest Tube Mediastinal 270 120 0 Urine 192 1095 30 Other: Voiding Method Indwelling Catheter Indwelling Catheter ABP, PAP, CO, CI - Last Documented Arterial Blood Pressure 223/223 Pulmonary Artery Pressure 40/20 Cardiac Output 4.3 Cardiac Index 2 - Labs CBC & Chem 7: 02/25/22 04:20 02/25/22 04:20 Labs: Abnormal Lab Results - Last 24 Hours (Table) 02/24/22 02/24/22 02/24/22 Range/Units 09:19 10:16 11:16 WBC (3.8-10.6) k/uL RBC (3.80-5.40) m/uL Hgb (11.4-16.0) gm/dL Hct (34.0-46.0) % Neutrophils # (1.3-7.7) k/uL Lymphocytes # (1.0-4.8) k/uL ABG pH (7.35-7.45) ABG pO2 (83-108) mmHg ABG HCO3 (21-25) mmol/L ABG Total CO2 (19-24) mmol/L ABG O2 Saturation (94-97) % Sodium (137-145) mmol/L BUN (7-17) mg/dL Glucose (74-99) mg/dL POC Glucose (mg/dL) 117 H 114 H 116 H (70-110) mg/dL AST (14-36) U/L ALT (4-34) U/L Total Protein (6.3-8.2) g/dL Urine Appearance (Clear) Urine Protein (Negative) Urine Blood (Negative) Amorphous Sediment (None) /hpf Urine Mucus (None) /hpf 02/24/22 02/24/22 02/24/22 Range/Units 12:29 13:01 13:59 WBC (3.8-10.6) k/uL RBC (3.80-5.40) m/uL Hgb (11.4-16.0) gm/dL Hct (34.0-46.0) % Neutrophils # (1.3-7.7) k/uL Lymphocytes # (1.0-4.8) k/uL ABG pH (7.35-7.45) ABG pO2 (83-108) mmHg ABG HCO3 (21-25) mmol/L ABG Total CO2 (19-24) mmol/L ABG O2 Saturation (94-97) % Sodium (137-145) mmol/L BUN (7-17) mg/dL Glucose (74-99) mg/dL POC Glucose (mg/dL) 123 H 125 H 112 H (70-110) mg/dL AST (14-36) U/L ALT (4-34) U/L Total Protein (6.3-8.2) g/dL Urine Appearance (Clear) Urine Protein (Negative) Urine Blood (Negative) Amorphous Sediment (None) /hpf Urine Mucus (None) /hpf 02/24/22 02/24/22 02/24/22 Range/Units 15:18 16:33 17:32 WBC (3.8-10.6) k/uL RBC (3.80-5.40) m/uL Hgb (11.4-16.0) gm/dL Hct (34.0-46.0) % Neutrophils # (1.3-7.7) k/uL Lymphocytes # (1.0-4.8) k/uL ABG pH (7.35-7.45) ABG pO2 (83-108) mmHg ABG HCO3 (21-25) mmol/L ABG Total CO2 (19-24) mmol/L ABG O2 Saturation (94-97) % Sodium (137-145) mmol/L BUN (7-17) mg/dL Glucose (74-99) mg/dL POC Glucose (mg/dL) 135 H 132 H 132 H (70-110) mg/dL AST (14-36) U/L ALT (4-34) U/L Total Protein (6.3-8.2) g/dL Urine Appearance (Clear) Urine Protein (Negative) Urine Blood (Negative) Amorphous Sediment (None) /hpf Urine Mucus (None) /hpf 02/24/22 02/24/22 02/24/22 Range/Units 18:27 19:10 20:12 WBC (3.8-10.6) k/uL RBC (3.80-5.40) m/uL Hgb (11.4-16.0) gm/dL Hct (34.0-46.0) % Neutrophils # (1.3-7.7) k/uL Lymphocytes # (1.0-4.8) k/uL ABG pH (7.35-7.45) ABG pO2 (83-108) mmHg ABG HCO3 (21-25) mmol/L ABG Total CO2 (19-24) mmol/L ABG O2 Saturation (94-97) % Sodium (137-145) mmol/L BUN (7-17) mg/dL Glucose (74-99) mg/dL POC Glucose (mg/dL) 142 H 142 H 137 H (70-110) mg/dL AST (14-36) U/L ALT (4-34) U/L Total Protein (6.3-8.2) g/dL Urine Appearance (Clear) Urine Protein (Negative) Urine Blood (Negative) Amorphous Sediment (None) /hpf Urine Mucus (None) /hpf 02/24/22 02/24/22 02/24/22 Range/Units 21:04 21:06 22:07 WBC (3.8-10.6) k/uL RBC (3.80-5.40) m/uL Hgb (11.4-16.0) gm/dL Hct (34.0-46.0) % Neutrophils # (1.3-7.7) k/uL Lymphocytes # (1.0-4.8) k/uL ABG pH (7.35-7.45) ABG pO2 70 L (83-108) mmHg ABG HCO3 (21-25) mmol/L ABG Total CO2 26 H (19-24) mmol/L ABG O2 Saturation (94-97) % Sodium (137-145) mmol/L BUN (7-17) mg/dL Glucose (74-99) mg/dL POC Glucose (mg/dL) 127 H 119 H (70-110) mg/dL AST (14-36) U/L ALT (4-34) U/L Total Protein (6.3-8.2) g/dL Urine Appearance (Clear) Urine Protein (Negative) Urine Blood (Negative) Amorphous Sediment (None) /hpf Urine Mucus (None) /hpf 02/24/22 02/24/22 02/25/22 Range/Units 23:08 23:56 01:02 WBC (3.8-10.6) k/uL RBC (3.80-5.40) m/uL Hgb (11.4-16.0) gm/dL Hct (34.0-46.0) % Neutrophils # (1.3-7.7) k/uL Lymphocytes # (1.0-4.8) k/uL ABG pH (7.35-7.45) ABG pO2 (83-108) mmHg ABG HCO3 (21-25) mmol/L ABG Total CO2 (19-24) mmol/L ABG O2 Saturation (94-97) % Sodium (137-145) mmol/L BUN (7-17) mg/dL Glucose (74-99) mg/dL POC Glucose (mg/dL) 130 H 134 H 121 H (70-110) mg/dL AST (14-36) U/L ALT (4-34) U/L Total Protein (6.3-8.2) g/dL Urine Appearance (Clear) Urine Protein (Negative) Urine Blood (Negative) Amorphous Sediment (None) /hpf Urine Mucus (None) /hpf 02/25/22 02/25/22 02/25/22 Range/Units 02:06 03:05 04:06 WBC (3.8-10.6) k/uL RBC (3.80-5.40) m/uL Hgb (11.4-16.0) gm/dL Hct (34.0-46.0) % Neutrophils # (1.3-7.7) k/uL Lymphocytes # (1.0-4.8) k/uL ABG pH (7.35-7.45) ABG pO2 (83-108) mmHg ABG HCO3 (21-25) mmol/L ABG Total CO2 (19-24) mmol/L ABG O2 Saturation (94-97) % Sodium (137-145) mmol/L BUN (7-17) mg/dL Glucose (74-99) mg/dL POC Glucose (mg/dL) 123 H 117 H 118 H (70-110) mg/dL AST (14-36) U/L ALT (4-34) U/L Total Protein (6.3-8.2) g/dL Urine Appearance (Clear) Urine Protein (Negative) Urine Blood (Negative) Amorphous Sediment (None) /hpf Urine Mucus (None) /hpf 02/25/22 02/25/22 02/25/22 Range/Units 04:20 04:20 05:10 WBC 12.5 H (3.8-10.6) k/uL RBC 3.26 L (3.80-5.40) m/uL Hgb 9.8 L (11.4-16.0) gm/dL Hct 29.9 L (34.0-46.0) % Neutrophils # 10.9 H (1.3-7.7) k/uL Lymphocytes # 0.7 L (1.0-4.8) k/uL ABG pH (7.35-7.45) ABG pO2 (83-108) mmHg ABG HCO3 (21-25) mmol/L ABG Total CO2 (19-24) mmol/L ABG O2 Saturation (94-97) % Sodium 136 L (137-145) mmol/L BUN 18 H (7-17) mg/dL Glucose 108 H (74-99) mg/dL POC Glucose (mg/dL) 116 H (70-110) mg/dL AST 79 H (14-36) U/L ALT 41 H (4-34) U/L Total Protein 5.3 L (6.3-8.2) g/dL Urine Appearance (Clear) Urine Protein (Negative) Urine Blood (Negative) Amorphous Sediment (None) /hpf Urine Mucus (None) /hpf 02/25/22 02/25/22 02/25/22 Range/Units 05:43 06:53 07:02 WBC (3.8-10.6) k/uL RBC (3.80-5.40) m/uL Hgb (11.4-16.0) gm/dL Hct (34.0-46.0) % Neutrophils # (1.3-7.7) k/uL Lymphocytes # (1.0-4.8) k/uL ABG pH 7.49 H (7.35-7.45) ABG pO2 55 L* (83-108) mmHg ABG HCO3 26 H (21-25) mmol/L ABG Total CO2 28 H (19-24) mmol/L ABG O2 Saturation 92.3 L (94-97) % Sodium (137-145) mmol/L BUN (7-17) mg/dL Glucose (74-99) mg/dL POC Glucose (mg/dL) 123 H (70-110) mg/dL AST (14-36) U/L ALT (4-34) U/L Total Protein (6.3-8.2) g/dL Urine Appearance Turbid H (Clear) Urine Protein Trace H (Negative) Urine Blood Small H (Negative) Amorphous Sediment Moderate H (None) /hpf Urine Mucus Moderate H (None) /hpf 02/25/22 Range/Units 08:25 WBC (3.8-10.6) k/uL RBC (3.80-5.40) m/uL Hgb (11.4-16.0) gm/dL Hct (34.0-46.0) % Neutrophils # (1.3-7.7) k/uL Lymphocytes # (1.0-4.8) k/uL ABG pH (7.35-7.45) ABG pO2 (83-108) mmHg ABG HCO3 (21-25) mmol/L ABG Total CO2 (19-24) mmol/L ABG O2 Saturation (94-97) % Sodium (137-145) mmol/L BUN (7-17) mg/dL Glucose (74-99) mg/dL POC Glucose (mg/dL) 124 H (70-110) mg/dL AST (14-36) U/L ALT (4-34) U/L Total Protein (6.3-8.2) g/dL Urine Appearance (Clear) Urine Protein (Negative) Urine Blood (Negative) Amorphous Sediment (None) /hpf Urine Mucus (None) /hpf
--- NOTE | 2022-02-25 08:52 | XR ---
EXAMINATION TYPE: XR chest 1V portable DATE OF EXAM: 02/25/2022 COMPARISON: 02/24/2022 INDICATION: Postop cardiac surgery TECHNIQUE: Single frontal view of the chest is obtained. FINDINGS: The heart size is mildly prominent. The pulmonary vasculature is normal. There is a infiltrate at the right lung base. Minimal left perihilar infiltrate is present. Small rig ht pleural effusion is present. Taft-Chandrakant catheter is present with the tip in the main pulmonary artery. Left-sided chest tube is pre sent. Mediastinal tube is present. IMPRESSION: 1. Small right pleural effusion with right lower lobe developing infiltrate. Correlate for atelectasi s and pneumonia. 2. Lines and catheters discussed above.
[2022-02-25] MEDS ORDERED: INSULIN ASPART (NovoLOG) 100 UNIT/ML VIAL SQ SCH (09:30)
--- NOTE | 2022-02-25 09:33 | P.PN ---
Subjective Progress Note Date: 02/25/22 This is a patient who had a recent heart catheterization, showing a critical and complex lesion involving the distal left main coronary artery, also, the ostial left circumflex, and ostial LAD. The lesions appear to be in the range of 80- 90%, and the patient was also noted to have elevated left ventricular end- diastolic filling pressures. The patient is currently being evaluated by cardiothoracic surgery for possible bypass grafting. We will reassess to see the patient preoperatively, and evaluate her lung function. The patient is a lifelong nonsmoker. She has no history of lung disease. Based on her FEV1, and her MVV, she was in the low operative risk range. Outpatient medications includ ed amlodipine, aspirin, metoprolol, lisinopril, zinc, vitamin D3, ascorbic acid, lactulose, and indoor. Her only major medical problem is hypertension. She does have a history of previous coronavirus infection and was seen by my partner in July 2021. CBC is completely normal. PTT is 39.7. Sodium 141, potassium 3.7, chlorides 111, CO2 24, BUN 12, creatinine 0.63. Cholesterol was 182. Urine was negative. Testing for coronavirus was negative. Chest x-ray shows mild interstitial edema. Currently she is on room air. Progress note dated 02/22/2022. 76-year-old female we saw yesterday in consultation. The patient has significant coronary disease, involving the left main coronary artery. The patient is apparently going to have open heart surgery one day this week. The exact day has not been decided yet. Clinically, she's. Stable. She is on room air. She is a lifelong nonsmoker. Lung function would suggest that she's at a very low increased operative risk based on her FEV1 and MVV. Labs today show white count of 6.1, with a normal hemoglobin, hematocrit, and platelet count. The patient's PTT is 60.2. Sodium 141, potassium 3.6, chlorides 111, CO2 24, BUN 12, creatinine 0.72. 02/23/2022, the patient is awaiting bypass surgery. The patient is calm and comfortable. No respiratory difficulties whatsoever. She is using incentive spirometer. Her preop FEV1 is order of 72% of predicted. No angina. No palpitations. No chest pain. She is hemodynamically stable at this point in time. She remains on IV heparin. I did introduce myself and I will take care o f this patient postop, managed to ventilator and the necessity pulmonary care following her thoracotomy bypass surgery.no other active issues for now. The patient was sent comes at 6.2 with a hemoglobin 4.5. She is on IV heparin with a PTT of 55. BUN is at 12 with a creatinine 0.6 and the sodium level is at 140. 02/24/2022, I'm seeing the patient for a follow-up. The patient was taken to the operating room yesterday and the patient underwent an off-pump coronary artery bypass surgery with RAMOS to LAD and saphenous vein graft to obtuse marginal. The patient also had a left facial appendage clipping. Estimated blood loss was 400 mL. The patient received a total of 3 L of intraoperative IV fluids. Note that the patient was having issues with hypotension and there was some interval worsening of the mitral regurgitation intraoperatively. At that point, it was decided to insert an intra-aortic balloon pump and this was done through the right common femoral artery. Once the intra-aortic balloon pump was initiated, the patient's hemodynamics improved dramatically. The patient was given a postop echo cardiac exam that showed a mild MR and good ejection fraction. The intra-aortic balloon pump was placed on a one-to-one augmentation and following that the patient was brought into the intensive care unit. The patient subsequently was weaned off the sedation and the patient was extubated without any major difficulties within a few hours. The patient was extubated and the fourth hours after arriving to the ICU. The patient had with good weaning parameters. The patient had a blood gas that showed adequate oxygenation and ventilation. Based on that, the patient was extubated. This morning, the patient remains on oxygen at 6 L per minute nasal cannula. The chest x-ray showing cardiomegaly. The patient is a mediastinal and left pleural chest tube. Output from the chest tubes have been 250 mL from the mediastinum and 280 from the left pleural since surgery. No evidence of any air leak. The chest x-ray shows no evidence of any pneumothorax. Hemodynamically, the patient is currently receiving intra-aortic balloon pump augmentation of 1-2. The patient has adequate cardiac output of 4.3 and an index of 2. She is on no pressors for now. The intra-aortic balloon pump will be removed for now. The patient is stable to systemic adequate blood pressure was the patient being off the balloon pump. Urine output is in order of 20 mL an hour. The patient is a febrile. The patient is awake and following commands thoracic questions appropriately. Pulmonary artery pressures are 38 over 18 mmHg. Lower blood work from work today is showing a sodium of 139, potassium of 4, bicarb of 26, BUN of 14 with a creatinine of 0.6. The white cell count is at 9.7 with a hemoglobin of 9.3 and a platelet count of 195. AST is 85 with an ALT of 60 and alkaline phosphatase of 41. Magnesium level is at 2.1. Note that the patient had a run of atrial fibrillation intraoperatively. The patient was loaded with amiodarone and currently the patient is on 0.5 mg per minute of amiodarone infusion. The patient is in a normal sinus rhythm. The patient is also on an insulin drip running at 2.5 units an hour with adequate blood sugar control. The patient's of lactated Ringer at the rate of 50 mL an hour. As mentioned, awake and alert and the sternum is dry clean and intact. No other issues otherwise for now. Breaks 02/25/2022, I'm seeing the patient for a follow-up. The patient is postop day #2. Note that this patient was extubated successfully without any issues. Subsequently, as of yesterday afternoon, the patient became progressively more hypoxic. Note that during the day, the patient was given IV albumin a total of 750 mL to improve her urine output. This did help and ultimately dopamine was added at renal dose to improve her urine output. Subsequently, she became more hypoxic and the patient became more short of breath and initially she went up to 15 L high flow and later on the patient was placed on a BiPAP. She was kept on BiPAP throughout the night and the patient is currently on a BiPAP at a pressure of 12/5 cm of water and FiO2 of on the percent. She is able to generate tidal volumes above 500. Respiratory rate is in the mid 20s. Her breathing is slightly labored even on the BiPAP, yet she is able to tolerate the machine w ithout any major difficulties and she is awake and alert and she is following commands and answering questions and she is neurologically intact. At the same time, the patient had a blood. This morning that showed a pH of 7.97.49 with a pCO2 of 35 and a pO2 of 55 and this was on FiO2 of 85% and based on that the FiO2 was brought up to 100%. The chest x-ray showing cardiomegaly. There is some infiltration of the right lung and some atelectatic changes in lung bases. There is concern for an evolving right lung pneumonia although this is quite early in the postoperative course. In any rate, the patient is being diuresed for now and the patient is producing adequate amount of urine output. She did have a spike of temperature 100.4 yesterday and currently she is afebrile. The white cell count today is at 12.5 which is comparable to yesterday with a hemoglobin of 9.8 and a platelet count of 192. In terms of the chest tubes, the patient is a mediastinal and left pleural chest tube, output has been noted and it's in the order of overnight 80 mL overnight and 400 mL over the past 24 hours in the mediastinal chest tube, 6 disease overnight and 400 mL over the past 24 hours in the left pleural chest tube. [employer] catheter still in place. The cardiac output is currently at 4.3 with an index of 2.0. The PA diastolic is in the order of extreme millimeters of mercury. The patient otherwise has normal renal function. Creatinine is at 0.6. Sodium is at 136. She is obviously n othing by mouth at this point in time as the patient is BiPAP dependent. Cardiac rhythm is still sinus and the patient remains on amiodarone. She remains on aspirin and Plavix. Routine postoperative care is being implemented this point in time. Insulin drip is off and the patient is currently on slice K coverage every 4 hours. Objective - Vital Signs Vital signs: Vital Signs Temp 100.2 F H 02/25/22 08:00 Pulse 86 02/25/22 08:30 Resp 30 H 02/25/22 08:30 BP 154/75 02/25/22 08:30 Pulse Ox 92 L 02/25/22 08:30 FiO2 100 02/25/22 08:00 Intake & Output 02/24/22 02/25/22 02/25/22 18:59 06:59 18:59 Intake Total 2037.504 565.251 335.4 Output Total 782 1345 120 Balance 1255.504 -779.749 215.4 Weight 113.6 kg 111 kg Intake: IV 819.5 468 127 0.9 Pressure bag 108 108 27 CO/CI 240 30 Lactated Ringers 1,000 ml 470 360 70 @ 20 mls/hr IV .Q24H [facility] Rx#:[id number] Nitroglycerin-D5w Pmx 50 1.5 mg In Dextrose/Water 1 250ml.bag @ 5 MCG/MIN 1.5 mls/hr IV .Q24H [facility] Rx#: [id number] Intake, IV Titration 268.004 37.251 108.4 Amount Amiodarone 450 mg In 250 Dextrose 5% in Water 250 ml @ 0.5 MG/MIN 16.667 mls/hr IV .Q15H [facility] Rx#: [id number] Dextrose/Water 1 250ml. 8.4 bag @ 2 MCG/KG/MIN 4.26 mls/hr IV .Q24H [facility] with DOPamine DRIP 800 mg Rx#: [id number] Insulin Regular 100 unit 18.004 37.251 In Sodium Chloride 0.9% 100 ml @ Per Protocol IV .Q0M [facility] Rx#:[id number] Potassium Chloride 10 meq 100 In Water For Injection 1 100ml.bag @ 100 mls/hr IVPB Q1H [facility] Rx#: [id number] Oral 850 60 100 Tube Feeding 100 Output: Chest Tube Drainage 590 250 30 Chest Tube Left Left 320 130 20 Pleural/Mediastinal Chest Tube Mediastinal 270 120 10 Urine 192 1095 90 Other: Voiding Method Indwelling Catheter Indwelling Catheter ABP, PAP, CO, CI - Last Documented Arterial Blood Pressure 191/79 Pulmonary Artery Pressure 46/26 Cardiac Output 5.1 Cardiac Index 2.4 - Exam No acute distress, oriented 3. The patient is currently on a BiPAP at a pressure of 12/5 cm of water, 100%. She has a right IJ [employer] catheter in place. Head exam was generally normal. There was no scleral icterus or corneal arcus. Mucous membranes were moist. HEENT examination is grossly u in her leftnremarkable. Neck supple. Full range of motion. No adenopathy thyromegaly or neck vein distention. Cardiovascular examination reveals regular rhythm rate. S1-S2 normal. No S3 or S4. No discernible murmur noted. The patient has a mediastinal chest tube in the left pleural chest tube. Sternum stable clean and intact and the surgical wound site is dry. . Lungs Breath sounds are equal bilaterally. No adventitious lung sounds including wheezes rhonchi or crackles. The patient has quite diminished breath on the right lung base Abdomen soft bowel sounds are heard. No masses or tenderness. Extremities are intact. No cyanosis clubbing or edema. Skin is without rash or lesion. Neurologic examination is brief but nonfocal. - Labs CBC & Chem 7: 02/25/22 04:20 02/25/22 04:20 Labs: Abnormal Lab Results - Last 24 Hours (Table) 02/24/22 02/24/22 02/24/22 Range/Units 10:16 11:16 12:29 WBC (3.8-10.6) k/uL RBC (3.80-5.40) m/uL Hgb (11.4-16.0) gm/dL Hct (34.0-46.0) % Neutrophils # (1.3-7.7) k/uL Lymphocytes # (1.0-4.8) k/uL ABG pH (7.35-7.45) ABG pO2 (83-108) mmHg ABG HCO3 (21-25) mmol/L ABG Total CO2 (19-24) mmol/L ABG O2 Saturation (94-97) % Sodium (137-145) mmol/L BUN (7-17) mg/dL Glucose (74-99) mg/dL POC Glucose (mg/dL) 114 H 116 H 123 H (70-110) mg/dL AST (14-36) U/L ALT (4-34) U/L Total Protein (6.3-8.2) g/dL Urine Appearance (Clear) Urine Protein (Negative) Urine Blood (Negative) Amorphous Sediment (None) /hpf Urine Mucus (None) /hpf 02/24/22 02/24/22 02/24/22 Range/Units 13:01 13:59 15:18 WBC (3.8-10.6) k/uL RBC (3.80-5.40) m/uL Hgb (11.4-16.0) gm/dL Hct (34.0-46.0) % Neutrophils # (1.3-7.7) k/uL Lymphocytes # (1.0-4.8) k/uL ABG pH (7.35-7.45) ABG pO2 (83-108) mmHg ABG HCO3 (21-25) mmol/L ABG Total CO2 (19-24) mmol/L ABG O2 Saturation (94-97) % Sodium (137-145) mmol/L BUN (7-17) mg/dL Glucose (74-99) mg/dL POC Glucose (mg/dL) 125 H 112 H 135 H (70-110) mg/dL AST (14-36) U/L ALT (4-34) U/L Total Protein (6.3-8.2) g/dL Urine Appearance (Clear) Urine Protein (Negative) Urine Blood (Negative) Amorphous Sediment (None) /hpf Urine Mucus (None) /hpf 02/24/22 02/24/22 02/24/22 Range/Units 16:33 17:32 18:27 WBC (3.8-10.6) k/uL RBC (3.80-5.40) m/uL Hgb (11.4-16.0) gm/dL Hct (34.0-46.0) % Neutrophils # (1.3-7.7) k/uL Lymphocytes # (1.0-4.8) k/uL ABG pH (7.35-7.45) ABG pO2 (83-108) mmHg ABG HCO3 (21-25) mmol/L ABG Total CO2 (19-24) mmol/L ABG O2 Saturation (94-97) % Sodium (137-145) mmol/L BUN (7-17) mg/dL Glucose (74-99) mg/dL POC Glucose (mg/dL) 132 H 132 H 142 H (70-110) mg/dL AST (14-36) U/L ALT (4-34) U/L Total Protein (6.3-8.2) g/dL Urine Appearance (Clear) Urine Protein (Negative) Urine Blood (Negative) Amorphous Sediment (None) /hpf Urine Mucus (None) /hpf 02/24/22 02/24/22 02/24/22 Range/Units 19:10 20:12 21:04 WBC (3.8-10.6) k/uL RBC (3.80-5.40) m/uL Hgb (11.4-16.0) gm/dL Hct (34.0-46.0) % Neutrophils # (1.3-7.7) k/uL Lymphocytes # (1.0-4.8) k/uL ABG pH (7.35-7.45) ABG pO2 (83-108) mmHg ABG HCO3 (21-25) mmol/L ABG Total CO2 (19-24) mmol/L ABG O2 Saturation (94-97) % Sodium (137-145) mmol/L BUN (7-17) mg/dL Glucose (74-99) mg/dL POC Glucose (mg/dL) 142 H 137 H 127 H (70-110) mg/dL AST (14-36) U/L ALT (4-34) U/L Total Protein (6.3-8.2) g/dL Urine Appearance (Clear) Urine Protein (Negative) Urine Blood (Negative) Amorphous Sediment (None) /hpf Urine Mucus (None) /hpf 02/24/22 02/24/22 02/24/22 Range/Units 21:06 22:07 23:08 WBC (3.8-10.6) k/uL RBC (3.80-5.40) m/uL Hgb (11.4-16.0) gm/dL Hct (34.0-46.0) % Neutrophils # (1.3-7.7) k/uL Lymphocytes # (1.0-4.8) k/uL ABG pH (7.35-7.45) ABG pO2 70 L (83-108) mmHg ABG HCO3 (21-25) mmol/L ABG Total CO2 26 H (19-24) mmol/L ABG O2 Saturation (94-97) % Sodium (137-145) mmol/L BUN (7-17) mg/dL Glucose (74-99) mg/dL POC Glucose (mg/dL) 119 H 130 H (70-110) mg/dL AST (14-36) U/L ALT (4-34) U/L Total Protein (6.3-8.2) g/dL Urine Appearance (Clear) Urine Protein (Negative) Urine Blood (Negative) Amorphous Sediment (None) /hpf Urine Mucus (None) /hpf 02/24/22 02/25/22 02/25/22 Range/Units 23:56 01:02 02:06 WBC (3.8-10.6) k/uL RBC (3.80-5.40) m/uL Hgb (11.4-16.0) gm/dL Hct (34.0-46.0) % Neutrophils # (1.3-7.7) k/uL Lymphocytes # (1.0-4.8) k/uL ABG pH (7.35-7.45) ABG pO2 (83-108) mmHg ABG HCO3 (21-25) mmol/L ABG Total CO2 (19-24) mmol/L ABG O2 Saturation (94-97) % Sodium (137-145) mmol/L BUN (7-17) mg/dL Glucose (74-99) mg/dL POC Glucose (mg/dL) 134 H 121 H 123 H (70-110) mg/dL AST (14-36) U/L ALT (4-34) U/L Total Protein (6.3-8.2) g/dL Urine Appearance (Clear) Urine Protein (Negative) Urine Blood (Negative) Amorphous Sediment (None) /hpf Urine Mucus (None) /hpf 02/25/22 02/25/22 02/25/22 Range/Units 03:05 04:06 04:20 WBC 12.5 H (3.8-10.6) k/uL RBC 3.26 L (3.80-5.40) m/uL Hgb 9.8 L (11.4-16.0) gm/dL Hct 29.9 L (34.0-46.0) % Neutrophils # 10.9 H (1.3-7.7) k/uL Lymphocytes # 0.7 L (1.0-4.8) k/uL ABG pH (7.35-7.45) ABG pO2 (83-108) mmHg ABG HCO3 (21-25) mmol/L ABG Total CO2 (19-24) mmol/L ABG O2 Saturation (94-97) % Sodium (137-145) mmol/L BUN (7-17) mg/dL Glucose (74-99) mg/dL POC Glucose (mg/dL) 117 H 118 H (70-110) mg/dL AST (14-36) U/L ALT (4-34) U/L Total Protein (6.3-8.2) g/dL Urine Appearance (Clear) Urine Protein (Negative) Urine Blood (Negative) Amorphous Sediment (None) /hpf Urine Mucus (None) /hpf 02/25/22 02/25/22 02/25/22 Range/Units 04:20 05:10 05:43 WBC (3.8-10.6) k/uL RBC (3.80-5.40) m/uL Hgb (11.4-16.0) gm/dL Hct (34.0-46.0) % Neutrophils # (1.3-7.7) k/uL Lymphocytes # (1.0-4.8) k/uL ABG pH 7.49 H (7.35-7.45) ABG pO2 55 L* (83-108) mmHg ABG HCO3 26 H (21-25) mmol/L ABG Total CO2 28 H (19-24) mmol/L ABG O2 Saturation 92.3 L (94-97) % Sodium 136 L (137-145) mmol/L BUN 18 H (7-17) mg/dL Glucose 108 H (74-99) mg/dL POC Glucose (mg/dL) 116 H (70-110) mg/dL AST 79 H (14-36) U/L ALT 41 H (4-34) U/L Total Protein 5.3 L (6.3-8.2) g/dL Urine Appearance (Clear) Urine Protein (Negative) Urine Blood (Negative) Amorphous Sediment (None) /hpf Urine Mucus (None) /hpf 02/25/22 02/25/22 02/25/22 Range/Units 06:53 07:02 08:25 WBC (3.8-10.6) k/uL RBC (3.80-5.40) m/uL Hgb (11.4-16.0) gm/dL Hct (34.0-46.0) % Neutrophils # (1.3-7.7) k/uL Lymphocytes # (1.0-4.8) k/uL ABG pH (7.35-7.45) ABG pO2 (83-108) mmHg ABG HCO3 (21-25) mmol/L ABG Total CO2 (19-24) mmol/L ABG O2 Saturation (94-97) % Sodium (137-145) mmol/L BUN (7-17) mg/dL Glucose (74-99) mg/dL POC Glucose (mg/dL) 123 H 124 H (70-110) mg/dL AST (14-36) U/L ALT (4-34) U/L Total Protein (6.3-8.2) g/dL Urine Appearance Turbid H (Clear) Urine Protein Trace H (Negative) Urine Blood Small H (Negative) Amorphous Sediment Moderate H (None) /hpf Urine Mucus Moderate H (None) /hpf Assessment and Plan Plan: Symptomatic coronary disease, post coronary artery bypass surgery 2, off-pump and the patient is postop day #2. The patient is post intra-aortic balloon pump insertion for hemodynamic support inserted at a time of surgery was subsequently removed and the patient remains hemodynamically stable. Note that the patient was extubated without any major difficulties and over the past 12 hours, there has been some interval S to decompensation which we believe it's related to increased atelectasis of the lung bases more so on the right lung base. The pa tient is currently BiPAP dependent. Hemodynamically stable. Cardiac rhythm is sinus. Post thoracotomy, chest tubes are in place and the patient was transitioned to a BiPAP at a pressure of 12/5 cm of water and FiO2 of 100%. Chest x-ray was noted. Lower urine output, improved with IV albumin and dopamine, currently being diuresed. Paroxysmal atrial fibrillation, expected outcome of surgery currently in sinus rhythm and the patient is currently on oral amiodarone Hyperglycemia, postop, the patient is off IV insulin and the patient is currently on insulin scale coverage History of hypertension. No history of any lung disease, and patient at low increased operative risk based on lung function. Prior history of coronavirus infection, July 2021. Postoperative anemia, expected outcome of surgery, hemoglobin is stable for now plan Keep the patient on BiPAP Repeat chest x-ray at noontime Check pro calcitonin level Keep the patient same BiPAP settings Keep dopamine renal dose and this may be turned off later on during the day Monitor hemodynamics Intra-aortic balloon pump removed yesterday Subcu heparin for DVT prophylaxis Routine postoperative cardiac medications We'll continue to follow make further recommendations based on her progress. Case was discussed with the cardiothoracic team. Is a critically care evaluation. Evaluation was done and more than 30 minutes. Time with Patient: Greater than 30
--- NOTE | 2022-02-25 11:37 | P.PN ---
Subjective Progress Note Date: 02/25/22 HISTORY OF PRESENT ILLNESS This is a pleasant 76 years old female with past medical history of Fibromyalg ia, Hyperlipidemia, Hypertension, Osteoarthritis , Supraventricular Tachycardia ,urinary incontinence-wears pad, severe left internal carotid artery stenosis followed by Dr. Fitzgerald, frequent constipation, she was admitted under cardiology service for right arm pain, chest pain and back pain for the last 3 weeks, where she underwent cardiac cath and showing critical and complex lesion involving the distal left main coronary arteries and also involving the ostial left circumflex and the distal LAD with the stenotic range is 80-90% with increase in LVEDP , Patient will need bypass procedure to open his coronary arteries. Currently she denies chest pain or dyspnea. No incontinence of urine or bowel. No fever Patient is hemodynamically stable Labs including CBC, INR, BMP and liver enzymes are unremarkable. TSH is 1.6. Urine analysis showing trace blood. coronavirus not detected. Hepatitis panel is negative Chest x-ray: Minimal interstitial edema noted Carotid duplex: No significant stenosis Echocardiogram showing ejection fraction of 50-55% with [id number] mitral regurgitation and mild tricuspid regurgitation Patient currently on heparin drip, aspirin 81 mg twice a day and normal saline at 75 mL/h as well as Lipitor and metoprolol However patient this morning she is asymptomatic she denies chest pain or dyspnea or abdominal pain. No diarrhea or vomiting or dysuria. No headache or weakness or numbness. 02/23: Patient is denying any chest pain, shortness of breath, palpitations, lightheadedness or dizziness. She is scheduled for CABG this afternoon and patient states that she is ready to move forward. No new concerns from her nurse. Patient has been afebrile, heart rate 80, blood pressure 129/78 and pulse ox 96% on room air. CBC is unremarkable. Chloride 110, CO2 20, blood sugar 112, creatinine 0.68. 02/24: Patient is status post CABG 2 with left internal mammary artery to the left anterior descending artery, reverse saphenous vein graft to the obtuse marginal artery, ligation of the left atrial appendage with a 40 mm AtriCure clip, endovascular vein harvest of the right greater saphenous vein, placement of intra-aortic balloon pump. Right groin intra-aortic balloon pump was discontinued this morning. Right internal jugular [place], right radial arterial line, mediastinal/left pleural chest tubes remain in place. Patient is stating that she is feeling well. She has been afebrile, heart rate 75, 121/54, pulse ox 93% on 2 L. Capillary blood glucose running between 110 and 120. WBC 9.7, hemoglobin 9.3 and platelet count 195. Electrolytes and renal function normal. AST 85 and ALT 41. 02/25: Patient remains in the intensive care unit. Yesterday pulse ox continued to drop through the day with increased oxygen demands to the point where she is now on BiPAP. She states she feels a little short of breath. She denies Chest pain. Temperature max 100.4, heart rate 76, respiratory rate 32, blood pressure 130/73. 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 Patient is status post IV Lasix yesterday with good urine output. Blood glucose running between 107 and 124 and insulin drip will be discontinued, transition to NovoLog scale every 4 hours. Urinalysis was turbid, blood small. REVIEW OF SYSTEMS Constitutional: No fever, no chills, no night sweats. No weight change. No weakness, fatigue or lethargy. No daytime sleepiness. EENT: No headache. No blurred vision or double vision, no loss of vision. No loss of Hearing, no ringing in the ears, no dizziness. No nasal drainage or congestion. No epistaxis. No sore throat. Lungs: No shortness of breath, cough, no sputum production. No wheezing. Cardiovascular: Reports chest ache, no lower extremity edema. No palpitations. No paroxysmal nocturnal dyspnea. No orthopnea. No lightheadedness or dizziness. No syncopal episodes. Abdominal: No abdominal pain. No nausea, vomiting. No diarrhea. No constipation. No bloody or tarry stools. No loss of appetite. Genitourinary: No dysuria, increased frequency, urgency. No urinary retention. Musculoskeletal: No myalgias. No muscle weakness, no gait dysfunction, no frequent falls. No back pain. No neck pain. Integumentary: No wounds, no lesions. No rash or pruritus. No unusual bruisi ng. No change in hair or nails. Neurologic: No aphasia. No facial droop. No change in mentation. No head injury. No headache. No paralysis. No paresthesia. Psychiatric: No depression. No anxiety. No mood swings. Endocrine: No abnormal blood sugars. No weight change. No excessive sweating or thirst. PHYSICAL EXAMINATION Gen: This is a 76-year-old overweight female. She is resting in bed and appears to be comfortable and in no acute distress. HEENT: Head is atraumatic, normocephalic. Pupils equal, round. Sclerae is anicteric. NECK: Supple. No JVD. No lymphadenopathy. No thyromegaly. Right Cordis in place. LUNGS: Clear to auscultation. No wheezes or rhonchi. No intercostal retractions. Chest tubes in place. HEART: Regular rate and rhythm. Systolic murmur. ABDOMEN: Soft. Bowel sounds are present. No masses. No tenderness. EXTREMITIES: No pedal edema. No calf tenderness. NEUROLOGICAL: Patient is awake, alert and oriented x3. Cranial nerves 2 through 12 are grossly intact. ASSESSMENT AND PLAN 1. Severe coronary artery disease status post 2 vessel CABG 02/23. Continue current plan per cardiothoracic team. Continue aspirin 325 mg daily, Lipitor 80 mg daily, Plavix 75 mg daily, continue [place] as needed for pain, insulin drip per protocol, DuoNeb treatments 4 times daily and as needed, Lopressor 12.5 mg twice daily. Inpatient rehab 2. Hypertension. 3. Hyperlipidemia. 4. Carotid artery disease. 5. Hyperglycemia. Insulin drip transitioned to NovoLog scale every 4 hours. 6. GI prophylaxis. 7. DVT prophylaxis. DISCHARGE PLAN Most likely a good candidate for inpatient rehab. Impression and plan of care have been directed as dictated by the signing physician. Elif Maharaj nurse practitioner acting as scribe for signing physician. Objective - Vital Signs Vital signs: Vital Signs Temp 100.2 F H 02/25/22 08:00 Pulse 86 02/25/22 08:30 Resp 30 H 02/25/22 08:30 BP 154/75 02/25/22 08:30 Pulse Ox 92 L 02/25/22 08:30 FiO2 100 02/25/22 08:00 Intake & Output 02/24/22 02/25/22 02/25/22 18:59 06:59 18:59 Intake Total 2037.504 565.251 202.2 Output Total 782 1345 85 Balance 1255.504 -779.749 117.2 Weight 113.6 kg 111 kg Intake: IV 819.5 468 98 0.9 Pressure bag 108 108 18 CO/CI 240 30 Lactated Ringers 1,000 ml 470 360 50 @ 20 mls/hr IV .Q24H [facility] Rx#:[id number] Nitroglycerin-D5w Pmx 50 1.5 mg In Dextrose/Water 1 250ml.bag @ 5 MCG/MIN 1.5 mls/hr IV .Q24H [facility] Rx#: [id number] Intake, IV Titration 268.004 37.251 104.2 Amount Amiodarone 450 mg In 250 Dextrose 5% in Water 250 ml @ 0.5 MG/MIN 16.667 mls/hr IV .Q15H [facility] Rx#: [id number] Dextrose/Water 1 250ml. 4.2 bag @ 2 MCG/KG/MIN 4.26 mls/hr IV .Q24H [facility] with DOPamine DRIP 800 mg Rx#: [id number] Insulin Regular 100 unit 18.004 37.251 In Sodium Chloride 0.9% 100 ml @ Per Protocol IV .Q0M [facility] Rx#:[id number] Potassium Chloride 10 meq 100 In Water For Injection 1 100ml.bag @ 100 mls/hr IVPB Q1H [facility] Rx#: [id number] Oral 850 60 Tube Feeding 100 Output: Chest Tube Drainage 590 250 30 Chest Tube Left Left 320 130 20 Pleural/Mediastinal Chest Tube Mediastinal 270 120 10 Urine 192 1095 55 Other: Voiding Method Indwelling Catheter Indwelling Catheter ABP, PAP, CO, CI - Last Documented Arterial Blood Pressure 191/79 Pulmonary Artery Pressure 46/26 Cardiac Output 5.1 Cardiac Index 2.4 - Labs CBC & Chem 7: 02/25/22 04:20 02/25/22 04:20 Labs: Abnormal Lab Results - Last 24 Hours (Table) 02/24/22 02/24/22 02/24/22 Range/Units 09:19 10:16 11:16 WBC (3.8-10.6) k/uL RBC (3.80-5.40) m/uL Hgb (11.4-16.0) gm/dL Hct (34.0-46.0) % Neutrophils # (1.3-7.7) k/uL Lymphocytes # (1.0-4.8) k/uL ABG pH (7.35-7.45) ABG pO2 (83-108) mmHg ABG HCO3 (21-25) mmol/L ABG Total CO2 (19-24) mmol/L ABG O2 Saturation (94-97) % Sodium (137-145) mmol/L BUN (7-17) mg/dL Glucose (74-99) mg/dL POC Glucose (mg/dL) 117 H 114 H 116 H (70-110) mg/dL AST (14-36) U/L ALT (4-34) U/L Total Protein (6.3-8.2) g/dL Urine Appearance (Clear) Urine Protein (Negative) Urine Blood (Negative) Amorphous Sediment (None) /hpf Urine Mucus (None) /hpf 02/24/22 02/24/22 02/24/22 Range/Units 12:29 13:01 13:59 WBC (3.8-10.6) k/uL RBC (3.80-5.40) m/uL Hgb (11.4-16.0) gm/dL Hct (34.0-46.0) % Neutrophils # (1.3-7.7) k/uL Lymphocytes # (1.0-4.8) k/uL ABG pH (7.35-7.45) ABG pO2 (83-108) mmHg ABG HCO3 (21-25) mmol/L ABG Total CO2 (19-24) mmol/L ABG O2 Saturation (94-97) % Sodium (137-145) mmol/L BUN (7-17) mg/dL Glucose (74-99) mg/dL POC Glucose (mg/dL) 123 H 125 H 112 H (70-110) mg/dL AST (14-36) U/L ALT (4-34) U/L Total Protein (6.3-8.2) g/dL Urine Appearance (Clear) Urine Protein (Negative) Urine Blood (Negative) Amorphous Sediment (None) /hpf Urine Mucus (None) /hpf 02/24/22 02/24/22 02/24/22 Range/Units 15:18 16:33 17:32 WBC (3.8-10.6) k/uL RBC (3.80-5.40) m/uL Hgb (11.4-16.0) gm/dL Hct (34.0-46.0) % Neutrophils # (1.3-7.7) k/uL Lymphocytes # (1.0-4.8) k/uL ABG pH (7.35-7.45) ABG pO2 (83-108) mmHg ABG HCO3 (21-25) mmol/L ABG Total CO2 (19-24) mmol/L ABG O2 Saturation (94-97) % Sodium (137-145) mmol/L BUN (7-17) mg/dL Glucose (74-99) mg/dL POC Glucose (mg/dL) 135 H 132 H 132 H (70-110) mg/dL AST (14-36) U/L ALT (4-34) U/L Total Protein (6.3-8.2) g/dL Urine Appearance (Clear) Urine Protein (Negative) Urine Blood (Negative) Amorphous Sediment (None) /hpf Urine Mucus (None) /hpf 02/24/22 02/24/22 02/24/22 Range/Units 18:27 19:10 20:12 WBC (3.8-10.6) k/uL RBC (3.80-5.40) m/uL Hgb (11.4-16.0) gm/dL Hct (34.0-46.0) % Neutrophils # (1.3-7.7) k/uL Lymphocytes # (1.0-4.8) k/uL ABG pH (7.35-7.45) ABG pO2 (83-108) mmHg ABG HCO3 (21-25) mmol/L ABG Total CO2 (19-24) mmol/L ABG O2 Saturation (94-97) % Sodium (137-145) mmol/L BUN (7-17) mg/dL Glucose (74-99) mg/dL POC Glucose (mg/dL) 142 H 142 H 137 H (70-110) mg/dL AST (14-36) U/L ALT (4-34) U/L Total Protein (6.3-8.2) g/dL Urine Appearance (Clear) Urine Protein (Negative) Urine Blood (Negative) Amorphous Sediment (None) /hpf Urine Mucus (None) /hpf 02/24/22 02/24/22 02/24/22 Range/Units 21:04 21:06 22:07 WBC (3.8-10.6) k/uL RBC (3.80-5.40) m/uL Hgb (11.4-16.0) gm/dL Hct (34.0-46.0) % Neutrophils # (1.3-7.7) k/uL Lymphocytes # (1.0-4.8) k/uL ABG pH (7.35-7.45) ABG pO2 70 L (83-108) mmHg ABG HCO3 (21-25) mmol/L ABG Total CO2 26 H (19-24) mmol/L ABG O2 Saturation (94-97) % Sodium (137-145) mmol/L BUN (7-17) mg/dL Glucose (74-99) mg/dL POC Glucose (mg/dL) 127 H 119 H (70-110) mg/dL AST (14-36) U/L ALT (4-34) U/L Total Protein (6.3-8.2) g/dL Urine Appearance (Clear) Urine Protein (Negative) Urine Blood (Negative) Amorphous Sediment (None) /hpf Urine Mucus (None) /hpf 02/24/22 02/24/22 02/25/22 Range/Units 23:08 23:56 01:02 WBC (3.8-10.6) k/uL RBC (3.80-5.40) m/uL Hgb (11.4-16.0) gm/dL Hct (34.0-46.0) % Neutrophils # (1.3-7.7) k/uL Lymphocytes # (1.0-4.8) k/uL ABG pH (7.35-7.45) ABG pO2 (83-108) mmHg ABG HCO3 (21-25) mmol/L ABG Total CO2 (19-24) mmol/L ABG O2 Saturation (94-97) % Sodium (137-145) mmol/L BUN (7-17) mg/dL Glucose (74-99) mg/dL POC Glucose (mg/dL) 130 H 134 H 121 H (70-110) mg/dL AST (14-36) U/L ALT (4-34) U/L Total Protein (6.3-8.2) g/dL Urine Appearance (Clear) Urine Protein (Negative) Urine Blood (Negative) Amorphous Sediment (None) /hpf Urine Mucus (None) /hpf 02/25/22 02/25/22 02/25/22 Range/Units 02:06 03:05 04:06 WBC (3.8-10.6) k/uL RBC (3.80-5.40) m/uL Hgb (11.4-16.0) gm/dL Hct (34.0-46.0) % Neutrophils # (1.3-7.7) k/uL Lymphocytes # (1.0-4.8) k/uL ABG pH (7.35-7.45) ABG pO2 (83-108) mmHg ABG HCO3 (21-25) mmol/L ABG Total CO2 (19-24) mmol/L ABG O2 Saturation (94-97) % Sodium (137-145) mmol/L BUN (7-17) mg/dL Glucose (74-99) mg/dL POC Glucose (mg/dL) 123 H 117 H 118 H (70-110) mg/dL AST (14-36) U/L ALT (4-34) U/L Total Protein (6.3-8.2) g/dL Urine Appearance (Clear) Urine Protein (Negative) Urine Blood (Negative) Amorphous Sediment (None) /hpf Urine Mucus (None) /hpf 02/25/22 02/25/22 02/25/22 Range/Units 04:20 04:20 05:10 WBC 12.5 H (3.8-10.6) k/uL RBC 3.26 L (3.80-5.40) m/uL Hgb 9.8 L (11.4-16.0) gm/dL Hct 29.9 L (34.0-46.0) % Neutrophils # 10.9 H (1.3-7.7) k/uL Lymphocytes # 0.7 L (1.0-4.8) k/uL ABG pH (7.35-7.45) ABG pO2 (83-108) mmHg ABG HCO3 (21-25) mmol/L ABG Total CO2 (19-24) mmol/L ABG O2 Saturation (94-97) % Sodium 136 L (137-145) mmol/L BUN 18 H (7-17) mg/dL Glucose 108 H (74-99) mg/dL POC Glucose (mg/dL) 116 H (70-110) mg/dL AST 79 H (14-36) U/L ALT 41 H (4-34) U/L Total Protein 5.3 L (6.3-8.2) g/dL Urine Appearance (Clear) Urine Protein (Negative) Urine Blood (Negative) Amorphous Sediment (None) /hpf Urine Mucus (None) /hpf 02/25/22 02/25/22 02/25/22 Range/Units 05:43 06:53 07:02 WBC (3.8-10.6) k/uL RBC (3.80-5.40) m/uL Hgb (11.4-16.0) gm/dL Hct (34.0-46.0) % Neutrophils # (1.3-7.7) k/uL Lymphocytes # (1.0-4.8) k/uL ABG pH 7.49 H (7.35-7.45) ABG pO2 55 L* (83-108) mmHg ABG HCO3 26 H (21-25) mmol/L ABG Total CO2 28 H (19-24) mmol/L ABG O2 Saturation 92.3 L (94-97) % Sodium (137-145) mmol/L BUN (7-17) mg/dL Glucose (74-99) mg/dL POC Glucose (mg/dL) 123 H (70-110) mg/dL AST (14-36) U/L ALT (4-34) U/L Total Protein (6.3-8.2) g/dL Urine Appearance Turbid H (Clear) Urine Protein Trace H (Negative) Urine Blood Small H (Negative) Amorphous Sediment Moderate H (None) /hpf Urine Mucus Moderate H (None) /hpf 02/25/22 Range/Units 08:25 WBC (3.8-10.6) k/uL RBC (3.80-5.40) m/uL Hgb (11.4-16.0) gm/dL Hct (34.0-46.0) % Neutrophils # (1.3-7.7) k/uL Lymphocytes # (1.0-4.8) k/uL ABG pH (7.35-7.45) ABG pO2 (83-108) mmHg ABG HCO3 (21-25) mmol/L ABG Total CO2 (19-24) mmol/L ABG O2 Saturation (94-97) % Sodium (137-145) mmol/L BUN (7-17) mg/dL Glucose (74-99) mg/dL POC Glucose (mg/dL) 124 H (70-110) mg/dL AST (14-36) U/L ALT (4-34) U/L Total Protein (6.3-8.2) g/dL Urine Appearance (Clear) Urine Protein (Negative) Urine Blood (Negative) Amorphous Sediment (None) /hpf Urine Mucus (None) /hpf
[2022-02-25 12:04] LABS: Glucose,Whole Blood 121 mg/dL (70-110)
[2022-02-25] MEDS: INSULIN ASPART (NovoLOG) 100 UNIT/ML VIAL SQ SCH ×4 (12:13→23:44)
[2022-02-25] MEDS ORDERED: METOPROLOL TARTRATE 12.5 MG TAB PO STA (13:54)
[2022-02-25 16:10] LABS: Glucose,Whole Blood 134 mg/dL (70-110)
[2022-02-25 20:14] LABS: Glucose,Whole Blood 152 mg/dL (70-110)
[2022-02-25] MEDS: SENNOSIDES-DOCUSATE SODIUM 1 EACH TAB PO SCH (20:21)
[2022-02-25] MEDS: METOPROLOL TARTRATE 25 MG TAB PO SCH (20:21)
[2022-02-25] MEDS: LACTATED RINGERS 1,000 ML IV SCH (20:27)
[2022-02-25 23:43] LABS: Glucose,Whole Blood 145 mg/dL (70-110)
[2022-02-26 04:06] LABS: Glucose,Whole Blood 160 mg/dL (70-110)
[2022-02-26] MEDS: INSULIN ASPART (NovoLOG) 100 UNIT/ML VIAL SQ SCH ×5 (04:09→19:39)
[2022-02-26 05:00] LABS: ABG Base Excess 1.9 mmol/L; ABG HCO3 25 mmol/L (21-25); ABG Oxygen Saturation 92.7 % (94-97); ABG PCO2 33 mmHg (35-45); ABG PH 7.49 (7.35-7.45); ABG PO2 60 mmHg (83-108); ABG TCO2 26 mmol/L (19-24)
[2022-02-26 05:03] LABS: Allen Test Performed? No
[2022-02-26 05:20] LABS: Basophils # (A) 0.1 k/uL (0-0.2); Basophils % (A) 0 %; Eosinophils # (A) 0.1 k/uL (0-0.7); Eosinophils % (A) 0 %; HGB 10.2 gm/dL (11.4-16.0); Lymphocytes # (A) 1.1 k/uL (1.0-4.8); Lymphocytes % (A) 6 %; MCH 29.7 pg (25.0-35.0); Monocytes # (A) 1.2 k/uL (0-1.0); Monocytes % (A) 6 %; Neutrophils # (A) 17.3 k/uL (1.3-7.7); Neutrophils % (A) 87 %; Platelet Count 266 k/uL (150-450); RBC 3.45 m/uL (3.80-5.40); RDW 14.6 % (11.5-15.5); WBC 19.9 k/uL (3.8-10.6)
[2022-02-26 05:32] LABS: ALT 60 U/L (4-34); AST 83 U/L (14-36); African American GFR (CKD) >90 (>60 ml/min/1.73 sqM); Albumin 3.4 g/dL (3.5-5.0); Alkaline Phosphatase 76 U/L (38-126); Anion Gap 7 mmol/L; Blood Urea Nitrogen 30 mg/dL (7-17); Calcium 8.4 mg/dL (8.4-10.2); Carbon Dioxide 25 mmol/L (22-30); Chloride 103 mmol/L (98-107); Glucose 140 mg/dL (74-99); Magnesium 2.1 mg/dL (1.6-2.3); Non-African American GFR(CKD) 86 (>60 ml/min/1.73 sqM); Sodium 135 mmol/L (137-145); Total Bilirubin 0.8 mg/dL (0.2-1.3); Total Protein 5.4 g/dL (6.3-8.2)
[2022-02-26] MEDS: hydrALAZINE HCL 20 MG/ML 1 ML VIAL IVP PRN (05:50)
[2022-02-26] MEDS: PANTOPRAZOLE 40 MG TABLET PO SCH (06:42)
--- NOTE | 2022-02-26 07:25 | P.PN ---
Subjective Progress Note Date: 02/26/22 PROGRESS NOTE The patient is a 76-year-old female with history of carotid vascular disease who presented with symptoms of progressive chest discomfort and an abnormal MPI. Underwent cardiac catheterization on the and was found to have severe distal left main disease with [id number] disease in the RCA. She is scheduled to undergo CABG today. Her echo showed an ejection fraction of 50% with mild lateral wall hypokinesis and [id number] mitral regurgitation. She's feeling well this morning, denies any chest discomfort or dizziness. She is in sinus mechanism. Scheduled to undergo CABG this afternoon. She continues to be on aspirin, Lipitor 80 mg daily, isosorbide mononitrate 15 mg daily, lisinopril 30 mg daily, metoprolol succinate 25 mg daily February 24: The patient underwent off-pump CABG yesterday with RAMOS to the LAD and SVG to the OM with ligation of the left atrial appendage and placement of intra-aortic balloon pump because of worsening ischemia at the start of surgery. She had atrial arrhythmia requiring cardioversion earlier. She is extubated, in sinus mechanism, intra-aortic balloon pump at 1:2 with good blood pressure and urinary output. She is on no vasopressor. She is awake, alert and following commands. At the end of the procedure she had a good ejection fraction with mild mitral regurgitation. She continues to be on aspirin, Lipitor 80 mg daily, Plavix 75 mg daily, metoprolol tartrate 12-1/2 mg twice a day. February 25: The patient intra-aortic balloon pump was removed yesterday. She was hypoxemic during the night requiring BiPAP. She denies any chest discomfort. She continues to be in sinus mechanism. She denies any chest discomfort, dizziness or palpitations. She received diuretics yesterday with good output. She continues to be on aspirin, Plavix, low-dose dopamine, metoprolol 12-1/2 mg twice a day, Lipitor 80 mg daily. Her chest x-ray shows bilateral pleural effusion February 26: The patient is awake and alert, continues to be in sinus mechanism, she continues to be on the BiPAP but feels better. Her breathing is stable. She is denying any chest discomfort, dizziness or palpitations. She has no nausea. She has good urinary output. She continues to be on aspirin once a day, amiodarone 400 mg twice a day, Lipitor 80 mg daily, Plavix 75 mg daily, insulin, metoprolol tartrate 25 mg twice a day. Her chest x-ray shows bilateral pleural effusion with mild congestion, she diuresed well yesterday the IV Lasix PHYSICAL EXAMINATION: Blood pressure 147/70 with a heart rate in the 80s LUNGS: Decreased breath sounds at the bases HEART: Regular rate and rhythm, S1, S2. No S3. systolic murmur at the base ABDOMEN: Soft, nontender, no organomegaly EXTREMETIES: No edema, LAB: Hemoglobin 10.2, BUN 30, creatinine 0.67, potassium 4.0 IMPRESSION: 1. Status post CABG, RAMOS to the LAD and SVG to obtuse marginal branch with known severe left main disease. 2. Post removal of Intra-aortic balloon pump 3. History of hyperlipidemia 4. Hypoxemia with lung congestion and evidence of fluid overload, improving 5. Hypertension PLAN: 1. IV diuretics as needed 2. Follow blood pressure and if it remains elevated add TASHI inhibitor 3. Wean BiPAP as tolerated to nasal cannula 4. Continue incentive spirometry 5. Increase activity as tolerated. Objective - Vital Signs Vital signs: Vital Signs Temp 97.8 F 02/26/22 04:00 Pulse 82 02/26/22 07:00 Resp 33 H 02/26/22 07:00 BP 147/78 02/26/22 07:00 Pulse Ox 98 02/26/22 07:00 FiO2 100 02/26/22 07:00 Intake & Output 02/25/22 02/26/22 02/26/22 18:59 06:59 18:59 Intake Total 796.4 476 23 Output Total 1385 310 35 Balance -588.6 166 -12 Weight 110.1 kg Intake: IV 388 276 23 0.9 Pressure bag 78 36 3 CO/CI 60 Lactated Ringers 1,000 ml 250 240 20 @ 20 mls/hr IV .Q24H [facility] Rx#:[id number] Intake, IV Titration 108.4 Amount Dextrose/Water 1 250ml. 8.4 bag @ 2 MCG/KG/MIN 4.26 mls/hr IV .Q24H [facility] with DOPamine DRIP 800 mg Rx#: [id number] Potassium Chloride 10 meq 100 In Water For Injection 1 100ml.bag @ 100 mls/hr IVPB Q1H [facility] Rx#: [id number] Oral 300 200 Output: Chest Tube Drainage 160 Chest Tube Left Left 90 Pleural/Mediastinal Chest Tube Mediastinal 70 Urine 1225 310 35 Other: Voiding Method Indwelling Catheter Indwelling Catheter ABP, PAP, CO, CI - Last Documented Arterial Blood Pressure 143/65 Pulmonary Artery Pressure 43/24 Cardiac Output 4 Cardiac Index 1.9 - Labs CBC & Chem 7: 02/26/22 05:09 02/26/22 05:09 Labs: Abnormal Lab Results - Last 24 Hours (Table) 02/25/22 02/25/22 02/25/22 Range/Units 04:20 06:53 08:25 WBC (3.8-10.6) k/uL RBC (3.80-5.40) m/uL Hgb (11.4-16.0) gm/dL Hct (34.0-46.0) % Neutrophils # (1.3-7.7) k/uL Monocytes # (0-1.0) k/uL ABG pH (7.35-7.45) ABG pCO2 (35-45) mmHg ABG pO2 (83-108) mmHg ABG Total CO2 (19-24) mmol/L ABG O2 Saturation (94-97) % Sodium (137-145) mmol/L BUN (7-17) mg/dL Glucose (74-99) mg/dL POC Glucose (mg/dL) 124 H (70-110) mg/dL AST (14-36) U/L ALT (4-34) U/L Total Protein (6.3-8.2) g/dL Albumin (3.5-5.0) g/dL Procalcitonin 0.18 H (0.02-0.09) ng/mL Urine Appearance Turbid H (Clear) Urine Protein Trace H (Negative) Urine Blood Small H (Negative) Amorphous Sediment Moderate H (None) /hpf Urine Mucus Moderate H (None) /hpf 02/25/22 02/25/22 02/25/22 Range/Units 12:02 16:09 20:12 WBC (3.8-10.6) k/uL RBC (3.80-5.40) m/uL Hgb (11.4-16.0) gm/dL Hct (34.0-46.0) % Neutrophils # (1.3-7.7) k/uL Monocytes # (0-1.0) k/uL ABG pH (7.35-7.45) ABG pCO2 (35-45) mmHg ABG pO2 (83-108) mmHg ABG Total CO2 (19-24) mmol/L ABG O2 Saturation (94-97) % Sodium (137-145) mmol/L BUN (7-17) mg/dL Glucose (74-99) mg/dL POC Glucose (mg/dL) 121 H 134 H 152 H (70-110) mg/dL AST (14-36) U/L ALT (4-34) U/L Total Protein (6.3-8.2) g/dL Albumin (3.5-5.0) g/dL Procalcitonin (0.02-0.09) ng/mL Urine Appearance (Clear) Urine Protein (Negative) Urine Blood (Negative) Amorphous Sediment (None) /hpf Urine Mucus (None) /hpf 02/25/22 02/26/22 02/26/22 Range/Units 23:42 04:04 04:45 WBC (3.8-10.6) k/uL RBC (3.80-5.40) m/uL Hgb (11.4-16.0) gm/dL Hct (34.0-46.0) % Neutrophils # (1.3-7.7) k/uL Monocytes # (0-1.0) k/uL ABG pH 7.49 H (7.35-7.45) ABG pCO2 33 L (35-45) mmHg ABG pO2 60 L (83-108) mmHg ABG Total CO2 26 H (19-24) mmol/L ABG O2 Saturation 92.7 L (94-97) % Sodium (137-145) mmol/L BUN (7-17) mg/dL Glucose (74-99) mg/dL POC Glucose (mg/dL) 145 H 160 H (70-110) mg/dL AST (14-36) U/L ALT (4-34) U/L Total Protein (6.3-8.2) g/dL Albumin (3.5-5.0) g/dL Procalcitonin (0.02-0.09) ng/mL Urine Appearance (Clear) Urine Protein (Negative) Urine Blood (Negative) Amorphous Sediment (None) /hpf Urine Mucus (None) /hpf 02/26/22 02/26/22 Range/Units 05:09 05:09 WBC 19.9 H (3.8-10.6) k/uL RBC 3.45 L (3.80-5.40) m/uL Hgb 10.2 L (11.4-16.0) gm/dL Hct 31.0 L (34.0-46.0) % Neutrophils # 17.3 H (1.3-7.7) k/uL Monocytes # 1.2 H (0-1.0) k/uL ABG pH (7.35-7.45) ABG pCO2 (35-45) mmHg ABG pO2 (83-108) mmHg ABG Total CO2 (19-24) mmol/L ABG O2 Saturation (94-97) % Sodium 135 L (137-145) mmol/L BUN 30 H (7-17) mg/dL Glucose 140 H (74-99) mg/dL POC Glucose (mg/dL) (70-110) mg/dL AST 83 H (14-36) U/L ALT 60 H (4-34) U/L Total Protein 5.4 L (6.3-8.2) g/dL Albumin 3.4 L (3.5-5.0) g/dL Procalcitonin (0.02-0.09) ng/mL Urine Appearance (Clear) Urine Protein (Negative) Urine Blood (Negative) Amorphous Sediment (None) /hpf Urine Mucus (None) /hpf
--- NOTE | 2022-02-26 07:36 | XR ---
EXAMINATION TYPE: XR chest 1V portable DATE OF EXAM: 02/26/2022 COMPARISON: 02/25/2022 HISTORY: post cardiac surgery FINDINGS: Right IJ sheath is now in place with removal of [place] catheter. Left-sided chest tube has been re moved. Left atrial clip remains in place. No evidence for pneumothorax. Persistent perihilar and basilar patchy densities bilateral small effusions. Continued cardiomegaly a nd coronary venous congestion. Stable appearance of the mediastinal structures at this time. IMPRESSION: 1. Stable portable chest. Clinical correlation and follow up until resolution is recommended.
--- NOTE | 2022-02-26 07:39 | P.PN ---
Subjective Progress Note Date: 02/26/22 Principal diagnosis: Coronary artery disease with left main disease, unstable angina, atrial arrhythmias. Previous medical history of hypertension, hyperlipidemia, SVT, left internal carotid artery stenosis, obesity, never smoker, remains unvaccinated against Covid, family history of coronary artery disease POD #3 off-pump coronary artery bypass grafting 2 with left internal mammary artery to the left anterior descending artery, reverse saphenous vein graft to the obtuse marginal artery, ligation of the left atrial appendage with a 40 mm AtriCure clip, endovascular vein harvest of the right greater saphenous vein, placement of intra-aortic balloon pump Postoperative acute blood loss anemia, expected given hemodilution Acute hypoxic respiratory failure requiring bipap The patient was seen and examined this morning sitting up in bed in the intensive care unit in no acute distress. This morning she remains on bipap, FiO2 had been weaned down to 70% yesterday, gradually increase back to 100% this morning, 08/04 with current oxygen sat 99%. Remains in sinus rhythm, hemodynamically stable on no inotropes or pressors. Dopamine was stopped yesterday morning, blood pressure has started to elevate. Was given IV Lasix yesterday with 825 mL initially diuresed, urine output has trended down since. WBC 19.9 this am, was 12.5 yesterday, procalcitonin 0.18. Tmax 100.2F in the last 24 hours, 97.8 this morning. Urine looks cloudy, sent for culture, no leukocyte esterase or nitrates noted. She denies any pain, doesn't like the bipap and really wants to get off of it, wants to get out of bed and get moving, otherwise she has no new complaints. Right internal jugular cordis, right radial arterial line remain. Objective - Vital Signs Vital signs: Vital Signs Temp 97.8 F 02/26/22 04:00 Pulse 82 02/26/22 07:00 Resp 33 H 02/26/22 07:00 BP 147/78 02/26/22 07:00 Pulse Ox 98 02/26/22 07:00 FiO2 100 02/26/22 07:00 Intake & Output 02/25/22 02/26/22 02/26/22 18:59 06:59 18:59 Intake Total 796.4 476 23 Output Total 1385 310 35 Balance -588.6 166 -12 Weight 110.1 kg Intake: IV 388 276 23 0.9 Pressure bag 78 36 3 CO/CI 60 Lactated Ringers 1,000 ml 250 240 20 @ 20 mls/hr IV .Q24H [facility] Rx#:[id number] Intake, IV Titration 108.4 Amount Dextrose/Water 1 250ml. 8.4 bag @ 2 MCG/KG/MIN 4.26 mls/hr IV .Q24H [facility] with DOPamine DRIP 800 mg Rx#: [id number] Potassium Chloride 10 meq 100 In Water For Injection 1 100ml.bag @ 100 mls/hr IVPB Q1H [facility] Rx#: [id number] Oral 300 200 Output: Chest Tube Drainage 160 Chest Tube Left Left 90 Pleural/Mediastinal Chest Tube Mediastinal 70 Urine 1225 310 35 Other: Voiding Method Indwelling Catheter Indwelling Catheter ABP, PAP, CO, CI - Last Documented Arterial Blood Pressure 143/65 Pulmonary Artery Pressure 43/24 Cardiac Output 4 Cardiac Index 1.9 - Exam CONSTITUTIONAL: Appears comfortable, cooperative, no acute distress RESPIRATORY: Lungs sounds diminished bilaterally, right greater than left. Respirations even, nonlabored. Currently on bipap, FiO2 100%, 12/6 with oxygen saturation 99%. Strong nonproductive cough. CARDIOVASCULAR: S1, S2 present. Regular rate and rhythm, sinus rhythm on telemetry. Sternum stable. Palpable peripheral pulses bilaterally. Trace generalized edema present. No calf pain or tenderness noted. Heart hugger in place with patient demonstrating appropriate use. Antiembolism stockings, SCDs present. GASTROINTESTINAL: Abdomen soft, nontender, nondistended. Active bowel sounds present 4 quadrants, tympanic to percussion. Tolerating liquids for medications. Denies flatus GENITOURINARY: Boss present draining cloudy, yellow urine. Output overnight 20 mL per hour, 1535 mL in the last 24 hours INTEGUMENTARY: Skin is warm and dry with evidence of good perfusion. Anterior chest incision well approximated and covered with dry intact dressing. Right lower extremity EVH site well approximated without redness or drainage. NEUROLOGIC: Cranial nerves II through XII intact MUSKULOSKELETAL: Able to move all extremities, strength equal bilaterally PSYCHIATRIC: Alert and oriented to person place and time, appropriate affect, intact judgment and insight INVASIVE LINES AND TUBES: Right internal jugular Cordis, right radial arterial line present. - Allied health notes Allied health notes reviewed: nursing - Labs CBC & Chem 7: 02/26/22 05:09 02/26/22 05:09 Labs: Abnormal Lab Results - Last 24 Hours (Table) 02/25/22 02/25/22 02/25/22 Range/Units 04:20 06:53 08:25 WBC (3.8-10.6) k/uL RBC (3.80-5.40) m/uL Hgb (11.4-16.0) gm/dL Hct (34.0-46.0) % Neutrophils # (1.3-7.7) k/uL Monocytes # (0-1.0) k/uL ABG pH (7.35-7.45) ABG pCO2 (35-45) mmHg ABG pO2 (83-108) mmHg ABG Total CO2 (19-24) mmol/L ABG O2 Saturation (94-97) % Sodium (137-145) mmol/L BUN (7-17) mg/dL Glucose (74-99) mg/dL POC Glucose (mg/dL) 124 H (70-110) mg/dL AST (14-36) U/L ALT (4-34) U/L Total Protein (6.3-8.2) g/dL Albumin (3.5-5.0) g/dL Procalcitonin 0.18 H (0.02-0.09) ng/mL Urine Appearance Turbid H (Clear) Urine Protein Trace H (Negative) Urine Blood Small H (Negative) Amorphous Sediment Moderate H (None) /hpf Urine Mucus Moderate H (None) /hpf 02/25/22 02/25/22 02/25/22 Range/Units 12:02 16:09 20:12 WBC (3.8-10.6) k/uL RBC (3.80-5.40) m/uL Hgb (11.4-16.0) gm/dL Hct (34.0-46.0) % Neutrophils # (1.3-7.7) k/uL Monocytes # (0-1.0) k/uL ABG pH (7.35-7.45) ABG pCO2 (35-45) mmHg ABG pO2 (83-108) mmHg ABG Total CO2 (19-24) mmol/L ABG O2 Saturation (94-97) % Sodium (137-145) mmol/L BUN (7-17) mg/dL Glucose (74-99) mg/dL POC Glucose (mg/dL) 121 H 134 H 152 H (70-110) mg/dL AST (14-36) U/L ALT (4-34) U/L Total Protein (6.3-8.2) g/dL Albumin (3.5-5.0) g/dL Procalcitonin (0.02-0.09) ng/mL Urine Appearance (Clear) Urine Protein (Negative) Urine Blood (Negative) Amorphous Sediment (None) /hpf Urine Mucus (None) /hpf 02/25/22 02/26/22 02/26/22 Range/Units 23:42 04:04 04:45 WBC (3.8-10.6) k/uL RBC (3.80-5.40) m/uL Hgb (11.4-16.0) gm/dL Hct (34.0-46.0) % Neutrophils # (1.3-7.7) k/uL Monocytes # (0-1.0) k/uL ABG pH 7.49 H (7.35-7.45) ABG pCO2 33 L (35-45) mmHg ABG pO2 60 L (83-108) mmHg ABG Total CO2 26 H (19-24) mmol/L ABG O2 Saturation 92.7 L (94-97) % Sodium (137-145) mmol/L BUN (7-17) mg/dL Glucose (74-99) mg/dL POC Glucose (mg/dL) 145 H 160 H (70-110) mg/dL AST (14-36) U/L ALT (4-34) U/L Total Protein (6.3-8.2) g/dL Albumin (3.5-5.0) g/dL Procalcitonin (0.02-0.09) ng/mL Urine Appearance (Clear) Urine Protein (Negative) Urine Blood (Negative) Amorphous Sediment (None) /hpf Urine Mucus (None) /hpf 02/26/22 02/26/22 Range/Units 05:09 05:09 WBC 19.9 H (3.8-10.6) k/uL RBC 3.45 L (3.80-5.40) m/uL Hgb 10.2 L (11.4-16.0) gm/dL Hct 31.0 L (34.0-46.0) % Neutrophils # 17.3 H (1.3-7.7) k/uL Monocytes # 1.2 H (0-1.0) k/uL ABG pH (7.35-7.45) ABG pCO2 (35-45) mmHg ABG pO2 (83-108) mmHg ABG Total CO2 (19-24) mmol/L ABG O2 Saturation (94-97) % Sodium 135 L (137-145) mmol/L BUN 30 H (7-17) mg/dL Glucose 140 H (74-99) mg/dL POC Glucose (mg/dL) (70-110) mg/dL AST 83 H (14-36) U/L ALT 60 H (4-34) U/L Total Protein 5.4 L (6.3-8.2) g/dL Albumin 3.4 L (3.5-5.0) g/dL Procalcitonin (0.02-0.09) ng/mL Urine Appearance (Clear) Urine Protein (Negative) Urine Blood (Negative) Amorphous Sediment (None) /hpf Urine Mucus (None) /hpf - Imaging and Cardiology Chest x-ray: report reviewed, image reviewed Assessment and Plan Assessment: 1. Coronary artery disease with left main disease, status post 2 vessel CABG 2. Hypertension 3. Hyperlipidemia, cholesterol 182, LDL 122 4. SVT, intraoperative atrial arrhythmias with cardioversion, status post left atrial appendage ligation 5. Left internal carotid artery stenosis 6. Obesity 7. Never smoker, preoperative FEV1 72% of predicted 8. History of covid infection in July 2021, remains unvaccinated against Covid 9. Family history of coronary artery disease 10. Nasal swab positive for MSSA, treated with mupirocin 11. Preserved LV function with mild to moderate mitral regurgitation on transthoracic echocardiogram 12. Acute blood loss anemia 13. Acute hypoxic respiratory failure requiring bipap 14. Leukocytosis with low grade fever, urine culture sent Plan: 1. Continue to maximize medical management with aspirin, Plavix, statin, beta ena. Will increase beta ena therapy as tolerated. 2. Continue amiodarone for A. fib prophylaxis. No anticoagulation necessary at this point 3. Wean O2 as tolerated. Encourage incentive spirometry 10 times every hour while awake once off bipap. Bronchodilators per pulmonology 4. Increase activity as tolerated. PT/OT/cardiac rehab following 5. GI/DVT prophylaxis 6. Will monitor daily labs and CXRs. Electrolyte replacement per protocol. Urine culture sent. 7. Pain control with current medication regimen 8. Insulin management per primary care service. Patient is not diabetic, preoperative hemoglobin A1c 5.6% 9. Continue Boss for another 24 hours for strict accurate intake and output. Daily weights 10. More recommendations to follow
[2022-02-26] MEDS: IPRATROPIUM-ALBUTEROL 3 ML NEB INHALATION SCH ×4 (07:49→20:18)
[2022-02-26] MEDS: CLOPIDOGREL 75 MG TAB PO SCH (07:58)
[2022-02-26] MEDS: METOPROLOL TARTRATE 25 MG TAB PO SCH ×2 (07:58→16:27)
[2022-02-26] MEDS: HEPARIN SODIUM,PORCINE/PF 5,000 UNIT/0.5 ML SYRINGE SQ SCH ×2 (07:58→16:26)
[2022-02-26] MEDS: ASPIRIN 325 MG TAB PO SCH (07:58)
[2022-02-26] MEDS: ATORVASTATIN 80 MG TAB PO SCH (07:58)
[2022-02-26] MEDS: AMIODARONE 200 MG TAB PO SCH ×2 (07:58→20:23)
[2022-02-26] MEDS: MUPIROCIN 2% OINT 22 GM TUBE NASAL SCH ×2 (07:59→20:27)
[2022-02-26 08:02] LABS: Glucose,Whole Blood 123 mg/dL (70-110)
[2022-02-26] MEDS: FUROSEMIDE 10 MG/ML 2 ML VIAL IV SCH ×2 (08:43→20:23)
--- NOTE | 2022-02-26 09:29 | US ---
EXAMINATION TYPE: US chest DATE OF EXAM: 02/26/2022 COMPARISON: NONE CLINICAL HISTORY: loraine for thoracentesis, both sides. pleural effusion TECHNIQUE: Targeted ultrasound of the posterior lower bilateral hemithoraces EXAM MEASUREMENTS: Right Pleural Effusion pocket size: 4.9 cm Right skin surface to fluid distance: 2.5 cm lung tissue visualized at 2.2 cm in fluid pocket. Right side marked for possible thoracentesis outside the dept. Pulmonologists are able to review the images in the patient?s EMR. IMPRESSIONS: As above
[2022-02-26] MEDS ORDERED: DEXTROSE 5% IN WATER 250 ML with AMIODARONE 300 MG IV STA (09:32)
[2022-02-26] MEDS ORDERED: DEXTROSE 5% IN WATER 100 ML with AMIODARONE 150 MG IV STA (09:34)
--- NOTE | 2022-02-26 10:55 | P.PN ---
Subjective Progress Note Date: 02/26/22 HISTORY OF PRESENT ILLNESS This is a pleasant 76 years old female with past medical history of Fibromyalg ia, Hyperlipidemia, Hypertension, Osteoarthritis , Supraventricular Tachycardia ,urinary incontinence-wears pad, severe left internal carotid artery stenosis followed by Dr. Fitzgerald, frequent constipation, she was admitted under cardiology service for right arm pain, chest pain and back pain for the last 3 weeks, where she underwent cardiac cath and showing critical and complex lesion involving the distal left main coronary arteries and also involving the ostial left circumflex and the distal LAD with the stenotic range is 80-90% with increase in LVEDP , Patient will need bypass procedure to open his coronary arteries. Currently she denies chest pain or dyspnea. No incontinence of urine or bowel. No fever Patient is hemodynamically stable Labs including CBC, INR, BMP and liver enzymes are unremarkable. TSH is 1.6. Urine analysis showing trace blood. coronavirus not detected. Hepatitis panel is negative Chest x-ray: Minimal interstitial edema noted Carotid duplex: No significant stenosis Echocardiogram showing ejection fraction of 50-55% with [id number] mitral regurgitation and mild tricuspid regurgitation Patient currently on heparin drip, aspirin 81 mg twice a day and normal saline at 75 mL/h as well as Lipitor and metoprolol However patient this morning she is asymptomatic she denies chest pain or dyspnea or abdominal pain. No diarrhea or vomiting or dysuria. No headache or weakness or numbness. 02/23: Patient is denying any chest pain, shortness of breath, palpitations, lightheadedness or dizziness. She is scheduled for CABG this afternoon and patient states that she is ready to move forward. No new concerns from her nurse. Patient has been afebrile, heart rate 80, blood pressure 129/78 and pulse ox 96% on room air. CBC is unremarkable. Chloride 110, CO2 20, blood sugar 112, creatinine 0.68. 02/24: Patient is status post CABG 2 with left internal mammary artery to the left anterior descending artery, reverse saphenous vein graft to the obtuse marginal artery, ligation of the left atrial appendage with a 40 mm AtriCure clip, endovascular vein harvest of the right greater saphenous vein, placement of intra-aortic balloon pump. Right groin intra-aortic balloon pump was discontinued this morning. Right internal jugular [place]/Cordis, right radial arterial line, mediastinal/left pleural chest tubes remain in place. Patient is stating that she is feeling well. She has been afebrile, heart rate 75, 121/54, pulse ox 93% on 2 L. Capillary blood glucose running between 110 and 120. WBC 9.7, hemoglobin 9.3 and platelet count 195. Electrolytes and renal function normal. AST 85 and ALT 41. 02/25: Patient remains in the intensive care unit. Yesterday pulse ox continued to drop through the day with increased oxygen demands to the point where she is now on BiPAP. She states she feels a little short of breath. She denies Chest pain. Temperature max 100.4, heart rate 76, respiratory rate 32, blood pressure 130/73. athletic monitor sinus rhythm. Patient is status post IV Lasix yesterday with good urine output. Blood glucose running between 107 and 124 and insulin drip will be discontinued, transition to NovoLog scale every 4 hours. Urinalysis was turbid, blood small. 02/26: Patient remains in the intensive care unit on BiPAP. She has been unable to eat only taking a few sips of water. Chest tubes have been removed, pacer wires to be removed today. Boss catheter is in place, good urine output. Patient has been afebrile, heart rate in the 80s, blood pressure 144/76, pulse ox 90% on FiO2 80 BiPAP. athletic monitor is sinus rhythm. Repeat blood work reveals WBC 19.9, hemoglobin 10.2, platelet count 266. Sodium 135, BUN 30 creatinine 0.67. AST 83 and ALT 60. Blood sugars running between 123 and 160. Chest x-ray reveals stable. Persistent perihilar and basilar patchy densities bilateral small effusions. Chest ultrasound reveals right pleural effusion 4.9 cm 2.2 cm fluid pocket. REVIEW OF SYSTEMS Constitutional: No fever, no chills, no night sweats. No weight change. No w eakness, fatigue or lethargy. No daytime sleepiness. EENT: No headache. No blurred vision or double vision, no loss of vision. No loss of Hearing, no ringing in the ears, no dizziness. No nasal drainage or congestion. No epistaxis. No sore throat. Lungs: Minimal shortness of breath, cough, no sputum production. No wheezing. Cardiovascular: Denies chest pain, no lower extremity edema. No palpitations. No paroxysmal nocturnal dyspnea. No orthopnea. No lightheadedness or dizziness. No syncopal episodes. Abdominal: No abdominal pain. No nausea, vomiting. No diarrhea. No constipation. No bloody or tarry stools. No loss of appetite. Genitourinary: No dysuria, increased frequency, urgency. No urinary retention. Musculoskeletal: No myalgias. No muscle weakness, no gait dysfunction, no frequent falls. No back pain. No neck pain. Integumentary: No wounds, no lesions. No rash or pruritus. No unusual bruising. No change in hair or nails. Neurologic: No aphasia. No facial droop. No change in mentation. No head injury. No headache. No paralysis. No paresthesia. Psychiatric: No depression. No anxiety. No mood swings. Endocrine: No abnormal blood sugars. No weight change. No excessive sweating or thirst. PHYSICAL EXAMINATION Gen: This is a 76-year-old overweight female. She is resting in bed and appears to be comfortable and in no acute distress. HEENT: Head is atraumatic, normocephalic. Pupils equal, round. Sclerae is anicteric. NECK: Supple. No JVD. No lymphadenopathy. No thyromegaly. Right Cordis in place. LUNGS: Clear to auscultation. No wheezes or rhonchi. No intercostal retractions. Chest tubes in place. HEART: Regular rate and rhythm. Systolic murmur. ABDOMEN: Soft. Bowel sounds are present. No masses. No tenderness. EXTREMITIES: No pedal edema. No calf tenderness. NEUROLOGICAL: Patient is awake, alert and oriented x3. Cranial nerves 2 through 12 are grossly intact. ASSESSMENT AND PLAN 1. Severe coronary artery disease status post 2 vessel CABG 02/23. Continue current plan per cardiothoracic team. Continue aspirin 325 mg daily, Lipitor 80 mg daily, Plavix 75 mg daily, continue [place] as needed for pain, insulin drip p er protocol, DuoNeb treatments 4 times daily and as needed, Lopressor 25 mg twice daily. 2. Hypertension. 3. Hyperlipidemia. 4. Carotid artery disease. 5. Hyperglycemia. Continue patient on NovoLog scale every 4 hours. 6. GI prophylaxis. 7. DVT prophylaxis. DISCHARGE PLAN Most likely a good candidate for inpatient rehab. Impression and plan of care have been directed as dictated by the signing physician. Elif Maharaj nurse practitioner acting as scribe for signing physician. Objective - Vital Signs Vital signs: Vital Signs Temp 97.6 F 02/26/22 08:00 Pulse 81 02/26/22 09:00 Resp 17 02/26/22 09:00 BP 134/68 02/26/22 09:00 Pulse Ox 97 02/26/22 09:00 FiO2 80 02/26/22 08:00 Intake & Output 02/25/22 02/26/22 02/26/22 18:59 06:59 18:59 Intake Total 796.4 476 66 Output Total 1385 310 175 Balance -588.6 166 -109 Weight 110.1 kg Intake: IV 388 276 66 0.9 Pressure bag 78 36 6 CO/CI 60 Lactated Ringers 1,000 ml 250 240 60 @ 20 mls/hr IV .Q24H [facility] Rx#:[id number] Intake, IV Titration 108.4 Amount Dextrose/Water 1 250ml. 8.4 bag @ 2 MCG/KG/MIN 4.26 mls/hr IV .Q24H [facility] with DOPamine DRIP 800 mg Rx#: [id number] Potassium Chloride 10 meq 100 In Water For Injection 1 100ml.bag @ 100 mls/hr IVPB Q1H [facility] Rx#: [id number] Oral 300 200 Output: Chest Tube Drainage 160 Chest Tube Left Left 90 Pleural/Mediastinal Chest Tube Mediastinal 70 Urine 1225 310 175 Other: Voiding Method Indwelling Catheter Indwelling Catheter Indwelling Catheter ABP, PAP, CO, CI - Last Documented Arterial Blood Pressure 143/65 Pulmonary Artery Pressure 43/24 Cardiac Output 4 Cardiac Index 1.9 - Labs CBC & Chem 7: 02/26/22 05:09 02/26/22 05:09 Labs: Abnormal Lab Results - Last 24 Hours (Table) 02/25/22 02/25/22 02/25/22 Range/Units 04:20 12:02 16:09 WBC (3.8-10.6) k/uL RBC (3.80-5.40) m/uL Hgb (11.4-16.0) gm/dL Hct (34.0-46.0) % Neutrophils # (1.3-7.7) k/uL Monocytes # (0-1.0) k/uL ABG pH (7.35-7.45) ABG pCO2 (35-45) mmHg ABG pO2 (83-108) mmHg ABG Total CO2 (19-24) mmol/L ABG O2 Saturation (94-97) % Sodium (137-145) mmol/L BUN (7-17) mg/dL Glucose (74-99) mg/dL POC Glucose (mg/dL) 121 H 134 H (70-110) mg/dL AST (14-36) U/L ALT (4-34) U/L Total Protein (6.3-8.2) g/dL Albumin (3.5-5.0) g/dL Procalcitonin 0.18 H (0.02-0.09) ng/mL 02/25/22 02/25/22 02/26/22 Range/Units 20:12 23:42 04:04 WBC (3.8-10.6) k/uL RBC (3.80-5.40) m/uL Hgb (11.4-16.0) gm/dL Hct (34.0-46.0) % Neutrophils # (1.3-7.7) k/uL Monocytes # (0-1.0) k/uL ABG pH (7.35-7.45) ABG pCO2 (35-45) mmHg ABG pO2 (83-108) mmHg ABG Total CO2 (19-24) mmol/L ABG O2 Saturation (94-97) % Sodium (137-145) mmol/L BUN (7-17) mg/dL Glucose (74-99) mg/dL POC Glucose (mg/dL) 152 H 145 H 160 H (70-110) mg/dL AST (14-36) U/L ALT (4-34) U/L Total Protein (6.3-8.2) g/dL Albumin (3.5-5.0) g/dL Procalcitonin (0.02-0.09) ng/mL 02/26/22 02/26/22 02/26/22 Range/Units 04:45 05:09 05:09 WBC 19.9 H (3.8-10.6) k/uL RBC 3.45 L (3.80-5.40) m/uL Hgb 10.2 L (11.4-16.0) gm/dL Hct 31.0 L (34.0-46.0) % Neutrophils # 17.3 H (1.3-7.7) k/uL Monocytes # 1.2 H (0-1.0) k/uL ABG pH 7.49 H (7.35-7.45) ABG pCO2 33 L (35-45) mmHg ABG pO2 60 L (83-108) mmHg ABG Total CO2 26 H (19-24) mmol/L ABG O2 Saturation 92.7 L (94-97) % Sodium 135 L (137-145) mmol/L BUN 30 H (7-17) mg/dL Glucose 140 H (74-99) mg/dL POC Glucose (mg/dL) (70-110) mg/dL AST 83 H (14-36) U/L ALT 60 H (4-34) U/L Total Protein 5.4 L (6.3-8.2) g/dL Albumin 3.4 L (3.5-5.0) g/dL Procalcitonin (0.02-0.09) ng/mL 02/26/22 Range/Units 08:01 WBC (3.8-10.6) k/uL RBC (3.80-5.40) m/uL Hgb (11.4-16.0) gm/dL Hct (34.0-46.0) % Neutrophils # (1.3-7.7) k/uL Monocytes # (0-1.0) k/uL ABG pH (7.35-7.45) ABG pCO2 (35-45) mmHg ABG pO2 (83-108) mmHg ABG Total CO2 (19-24) mmol/L ABG O2 Saturation (94-97) % Sodium (137-145) mmol/L BUN (7-17) mg/dL Glucose (74-99) mg/dL POC Glucose (mg/dL) 123 H (70-110) mg/dL AST (14-36) U/L ALT (4-34) U/L Total Protein (6.3-8.2) g/dL Albumin (3.5-5.0) g/dL Procalcitonin (0.02-0.09) ng/mL
[2022-02-26 11:53] LABS: Glucose,Whole Blood 120 mg/dL (70-110)
--- NOTE | 2022-02-26 11:54 | P.PN ---
Subjective Progress Note Date: 02/26/22 This is a patient who had a recent heart catheterization, showing a critical and complex lesion involving the distal left main coronary artery, also, the ostial left circumflex, and ostial LAD. The lesions appear to be in the range of 80- 90%, and the patient was also noted to have elevated left ventricular end- diastolic filling pressures. The patient is currently being evaluated by cardiothoracic surgery for possible bypass grafting. We will reassess to see the patient preoperatively, and evaluate her lung function. The patient is a lifelong nonsmoker. She has no history of lung disease. Based on her FEV1, and her MVV, she was in the low operative risk range. Outpatient medications includ ed amlodipine, aspirin, metoprolol, lisinopril, zinc, vitamin D3, ascorbic acid, lactulose, and indoor. Her only major medical problem is hypertension. She does have a history of previous coronavirus infection and was seen by my partner in July 2021. CBC is completely normal. PTT is 39.7. Sodium 141, potassium 3.7, chlorides 111, CO2 24, BUN 12, creatinine 0.63. Cholesterol was 182. Urine was negative. Testing for coronavirus was negative. Chest x-ray shows mild interstitial edema. Currently she is on room air. Progress note dated 02/22/2022. 76-year-old female we saw yesterday in consultation. The patient has significant coronary disease, involving the left main coronary artery. The patient is apparently going to have open heart surgery one day this week. The exact day has not been decided yet. Clinically, she's. Stable. She is on room air. She is a lifelong nonsmoker. Lung function would suggest that she's at a very low increased operative risk based on her FEV1 and MVV. Labs today show white count of 6.1, with a normal hemoglobin, hematocrit, and platelet count. The patient's PTT is 60.2. Sodium 141, potassium 3.6, chlorides 111, CO2 24, BUN 12, creatinine 0.72. 02/23/2022, the patient is awaiting bypass surgery. The patient is calm and comfortable. No respiratory difficulties whatsoever. She is using incentive spirometer. Her preop FEV1 is order of 72% of predicted. No angina. No palpitations. No chest pain. She is hemodynamically stable at this point in time. She remains on IV heparin. I did introduce myself and I will take care o f this patient postop, managed to ventilator and the necessity pulmonary care following her thoracotomy bypass surgery.no other active issues for now. The patient was sent comes at 6.2 with a hemoglobin 4.5. She is on IV heparin with a PTT of 55. BUN is at 12 with a creatinine 0.6 and the sodium level is at 140. 02/24/2022, I'm seeing the patient for a follow-up. The patient was taken to the operating room yesterday and the patient underwent an off-pump coronary artery bypass surgery with RAMOS to LAD and saphenous vein graft to obtuse marginal. The patient also had a left facial appendage clipping. Estimated blood loss was 400 mL. The patient received a total of 3 L of intraoperative IV fluids. Note that the patient was having issues with hypotension and there was some interval worsening of the mitral regurgitation intraoperatively. At that point, it was decided to insert an intra-aortic balloon pump and this was done through the right common femoral artery. Once the intra-aortic balloon pump was initiated, the patient's hemodynamics improved dramatically. The patient was given a postop echo cardiac exam that showed a mild MR and good ejection fraction. The intra-aortic balloon pump was placed on a one-to-one augmentation and following that the patient was brought into the intensive care unit. The patient subsequently was weaned off the sedation and the patient was extubated without any major difficulties within a few hours. The patient was extubated and the fourth hours after arriving to the ICU. The patient had with good weaning parameters. The patient had a blood gas that showed adequate oxygenation and ventilation. Based on that, the patient was extubated. This morning, the patient remains on oxygen at 6 L per minute nasal cannula. The chest x-ray showing cardiomegaly. The patient is a mediastinal and left pleural chest tube. Output from the chest tubes have been 250 mL from the mediastinum and 280 from the left pleural since surgery. No evidence of any air leak. The chest x-ray shows no evidence of any pneumothorax. Hemodynamically, the patient is currently receiving intra-aortic balloon pump augmentation of 1-2. The patient has adequate cardiac output of 4.3 and an index of 2. She is on no pressors for now. The intra-aortic balloon pump will be removed for now. The patient is stable to systemic adequate blood pressure was the patient being off the balloon pump. Urine output is in order of 20 mL an hour. The patient is a febrile. The patient is awake and following commands thoracic questions appropriately. Pulmonary artery pressures are 38 over 18 mmHg. Lower blood work from work today is showing a sodium of 139, potassium of 4, bicarb of 26, BUN of 14 with a creatinine of 0.6. The white cell count is at 9.7 with a hemoglobin of 9.3 and a platelet count of 195. AST is 85 with an ALT of 60 and alkaline phosphatase of 41. Magnesium level is at 2.1. Note that the patient had a run of atrial fibrillation intraoperatively. The patient was loaded with amiodarone and currently the patient is on 0.5 mg per minute of amiodarone infusion. The patient is in a normal sinus rhythm. The patient is also on an insulin drip running at 2.5 units an hour with adequate blood sugar control. The patient's of lactated Ringer at the rate of 50 mL an hour. As mentioned, awake and alert and the sternum is dry clean and intact. No other issues otherwise for now. Breaks 02/25/2022, I'm seeing the patient for a follow-up. The patient is postop day #2. Note that this patient was extubated successfully without any issues. Subsequently, as of yesterday afternoon, the patient became progressively more hypoxic. Note that during the day, the patient was given IV albumin a total of 750 mL to improve her urine output. This did help and ultimately dopamine was added at renal dose to improve her urine output. Subsequently, she became more hypoxic and the patient became more short of breath and initially she went up to 15 L high flow and later on the patient was placed on a BiPAP. She was kept on BiPAP throughout the night and the patient is currently on a BiPAP at a pressure of 12/5 cm of water and FiO2 of on the percent. She is able to generate tidal volumes above 500. Respiratory rate is in the mid 20s. Her breathing is slightly labored even on the BiPAP, yet she is able to tolerate the machine w ithout any major difficulties and she is awake and alert and she is following commands and answering questions and she is neurologically intact. At the same time, the patient had a blood. This morning that showed a pH of 7.97.49 with a pCO2 of 35 and a pO2 of 55 and this was on FiO2 of 85% and based on that the FiO2 was brought up to 100%. The chest x-ray showing cardiomegaly. There is some infiltration of the right lung and some atelectatic changes in lung bases. There is concern for an evolving right lung pneumonia although this is quite early in the postoperative course. In any rate, the patient is being diuresed for now and the patient is producing adequate amount of urine output. She did have a spike of temperature 100.4 yesterday and currently she is afebrile. The white cell count today is at 12.5 which is comparable to yesterday with a hemoglobin of 9.8 and a platelet count of 192. In terms of the chest tubes, the patient is a mediastinal and left pleural chest tube, output has been noted and it's in the order of overnight 80 mL overnight and 400 mL over the past 24 hours in the mediastinal chest tube, 6 disease overnight and 400 mL over the past 24 hours in the left pleural chest tube. [place]-Chandrakant catheter still in place. The cardiac output is currently at 4.3 with an index of 2.0. The PA diastolic is in the order of extreme millimeters of mercury. The patient otherwise has normal renal function. Creatinine is at 0.6. Sodium is at 136. She is obviously n othing by mouth at this point in time as the patient is BiPAP dependent. Cardiac rhythm is still sinus and the patient remains on amiodarone. She remains on aspirin and Plavix. Routine postoperative care is being implemented this point in time. Insulin drip is off and the patient is currently on slice K coverage every 4 hours. 02/26/2022, I'm seeing the patient for a follow-up. The patient is postop day #3. Note that after a successful extubation, the patient was placed on a BiPAP because of ongoing hypoxic respiratory failure. The patient stayed on BiPAP throughout the day yesterday and this morning the patient remains on a BiPAP. Current BiPAP settings of 12/5 with an FiO2 of 80%. While in the BiPAP, the patient is urinating a tidal volume of about 450 with a respiratory rate in the mid 20s and a minute ventilation of 13 L per minute. The chest x-ray showing some further investigation right lung base. Based on that, an ultrasound of the chest was done and there was minimal amount of pleural effusion the right lung base and I think the predominant findings are significant atelectasis in the lung bases right more than left. Note that the chest tubes were all removed ye sterday and the patient the left pleural and mediastinal chest tube both of them removed. Morning blood gases showed a pH of 7.49 with a pCO2 of 33 and pO2 of 60. The patient's FiO2 is currently at 80% on the BiPAP and she is pulse oxing 95%. I dropped her down to 60%. Meanwhile, the pro-calcitonin level obtained yesterday was low at 0.18. The patient was being diuresis with IV Lasix and input output balance has been negative for on 22 mL over the past 24 hours and the patient was taken off the dopamine. The the white cell count is slightly higher compared to yesterday. He 0.9 with a hemoglobin of 10.2 and a platelet count of 266. Sodium is at 135 with a BUN of 30 and creatinine 0.6. The patient is awake. The patient is alert. She is following commands and moving extremities. She is currently on examination aspirin and Plavix. She is also on metoprolol 25 mg by mouth 3 times a day. Cardiac rhythm was sinus and later on she did have a epidural of atrial fibrillation. There is being managed by the cardiothoracic team. The patient will be started back on amiodarone bolus and maintenance. No pressors for now. Objective - Vital Signs Vital signs: Vital Signs Temp 97.6 F 02/26/22 08:00 Pulse 73 02/26/22 11:17 Resp 17 02/26/22 09:00 BP 134/68 02/26/22 09:00 Pulse Ox 97 02/26/22 09:00 FiO2 60 02/26/22 11:17 Intake & Output 02/25/22 02/26/22 02/26/22 18:59 06:59 18:59 Intake Total 796.4 476 92 Output Total 1385 310 425 Balance -588.6 166 -333 Weight 110.1 kg Intake: IV 388 276 92 0.9 Pressure bag 78 36 12 CO/CI 60 Lactated Ringers 1,000 ml 250 240 80 @ 20 mls/hr IV .Q24H [facility] Rx#:[id number] Intake, IV Titration 108.4 Amount Dextrose/Water 1 250ml. 8.4 bag @ 2 MCG/KG/MIN 4.26 mls/hr IV .Q24H [facility] with DOPamine DRIP 800 mg Rx#: [id number] Potassium Chloride 10 meq 100 In Water For Injection 1 100ml.bag @ 100 mls/hr IVPB Q1H [facility] Rx#: [id number] Oral 300 200 Output: Chest Tube Drainage 160 Chest Tube Left Left 90 Pleural/Mediastinal Chest Tube Mediastinal 70 Urine 1225 310 425 Other: Voiding Method Indwelling Catheter Indwelling Catheter Indwelling Catheter ABP, PAP, CO, CI - Last Documented Arterial Blood Pressure 143/65 Pulmonary Artery Pressure 43/24 Cardiac Output 4 Cardiac Index 1.9 - Exam CONSTITUTIONAL: Appears comfortable, cooperative, no acute distress RESPIRATORY: Lungs sounds diminished bilaterally, right greater than left. Respirations even, nonlabored. Currently on bipap, FiO2 100%, 12/6 with oxygen saturation 99%. Strong nonproductive cough. CARDIOVASCULAR: S1, S2 present. Regular rate and rhythm, sinus rhythm on telemetry. Sternum stable. Palpable peripheral pulses bilaterally. Trace generalized edema present. No calf pain or tenderness noted. Heart hugger in place with patient demonstrating appropriate use. Antiembolism stockings, SCDs present. GASTROINTESTINAL: Abdomen soft, nontender, nondistended. Active bowel sounds present 4 quadrants, tympanic to percussion. Tolerating liquids for medications. Denies flatus GENITOURINARY: Boss present draining cloudy, yellow urine. Output overnight 20 mL per hour, 1535 mL in the last 24 hours INTEGUMENTARY: Skin is warm and dry with evidence of good perfusion. Anterior chest incision well approximated and covered with dry intact dressing. Right lower extremity EVH site well approximated without redness or drainage. NEUROLOGIC: Cranial nerves II through XII intact MUSKULOSKELETAL: Able to move all extremities, strength equal bilaterally PSYCHIATRIC: Alert and oriented to person place and time, appropriate affect, intact judgment and insight INVASIVE LINES AND TUBES: Right internal jugular Cordis, right radial arterial line present. - Labs CBC & Chem 7: 02/26/22 05:09 02/26/22 05:09 Labs: Abnormal Lab Results - Last 24 Hours (Table) 02/25/22 02/25/22 02/25/22 Range/Units 04:20 12:02 16:09 WBC (3.8-10.6) k/uL RBC (3.80-5.40) m/uL Hgb (11.4-16.0) gm/dL Hct (34.0-46.0) % Neutrophils # (1.3-7.7) k/uL Monocytes # (0-1.0) k/uL ABG pH (7.35-7.45) ABG pCO2 (35-45) mmHg ABG pO2 (83-108) mmHg ABG Total CO2 (19-24) mmol/L ABG O2 Saturation (94-97) % Sodium (137-145) mmol/L BUN (7-17) mg/dL Glucose (74-99) mg/dL POC Glucose (mg/dL) 121 H 134 H (70-110) mg/dL AST (14-36) U/L ALT (4-34) U/L Total Protein (6.3-8.2) g/dL Albumin (3.5-5.0) g/dL Procalcitonin 0.18 H (0.02-0.09) ng/mL 02/25/22 02/25/22 02/26/22 Range/Units 20:12 23:42 04:04 WBC (3.8-10.6) k/uL RBC (3.80-5.40) m/uL Hgb (11.4-16.0) gm/dL Hct (34.0-46.0) % Neutrophils # (1.3-7.7) k/uL Monocytes # (0-1.0) k/uL ABG pH (7.35-7.45) ABG pCO2 (35-45) mmHg ABG pO2 (83-108) mmHg ABG Total CO2 (19-24) mmol/L ABG O2 Saturation (94-97) % Sodium (137-145) mmol/L BUN (7-17) mg/dL Glucose (74-99) mg/dL POC Glucose (mg/dL) 152 H 145 H 160 H (70-110) mg/dL AST (14-36) U/L ALT (4-34) U/L Total Protein (6.3-8.2) g/dL Albumin (3.5-5.0) g/dL Procalcitonin (0.02-0.09) ng/mL 02/26/22 02/26/22 02/26/22 Range/Units 04:45 05:09 05:09 WBC 19.9 H (3.8-10.6) k/uL RBC 3.45 L (3.80-5.40) m/uL Hgb 10.2 L (11.4-16.0) gm/dL Hct 31.0 L (34.0-46.0) % Neutrophils # 17.3 H (1.3-7.7) k/uL Monocytes # 1.2 H (0-1.0) k/uL ABG pH 7.49 H (7.35-7.45) ABG pCO2 33 L (35-45) mmHg ABG pO2 60 L (83-108) mmHg ABG Total CO2 26 H (19-24) mmol/L ABG O2 Saturation 92.7 L (94-97) % Sodium 135 L (137-145) mmol/L BUN 30 H (7-17) mg/dL Glucose 140 H (74-99) mg/dL POC Glucose (mg/dL) (70-110) mg/dL AST 83 H (14-36) U/L ALT 60 H (4-34) U/L Total Protein 5.4 L (6.3-8.2) g/dL Albumin 3.4 L (3.5-5.0) g/dL Procalcitonin (0.02-0.09) ng/mL 02/26/22 Range/Units 08:01 WBC (3.8-10.6) k/uL RBC (3.80-5.40) m/uL Hgb (11.4-16.0) gm/dL Hct (34.0-46.0) % Neutrophils # (1.3-7.7) k/uL Monocytes # (0-1.0) k/uL ABG pH (7.35-7.45) ABG pCO2 (35-45) mmHg ABG pO2 (83-108) mmHg ABG Total CO2 (19-24) mmol/L ABG O2 Saturation (94-97) % Sodium (137-145) mmol/L BUN (7-17) mg/dL Glucose (74-99) mg/dL POC Glucose (mg/dL) 123 H (70-110) mg/dL AST (14-36) U/L ALT (4-34) U/L Total Protein (6.3-8.2) g/dL Albumin (3.5-5.0) g/dL Procalcitonin (0.02-0.09) ng/mL Assessment and Plan Plan: Symptomatic coronary disease, post coronary artery bypass surgery 2, off-pump and the patient is postop day #3. The patient is post intra-aortic balloon pump insertion for hemodynamic support inserted at a time of surgery was subsequently removed and the patient remains hemodynamically stable. Note that the patient w as extubated without any major difficulties and over the past 12 hours, there has been some interval decompensation which we believe it's related to increased atelectasis of the lung bases more so on the right lung base. The patient is currently BiPAP dependent. Hemodynamically stable. Post thoracotomy, chest tubes are removed Acute hypoxic history failure, essential related to extensive atelectatic changes in the lung bases. There is increased opacification of right lung base. Pneumonia is doubtful. Ultrasound the chest revealed minimal amount of fluid the right lung base. Lower urine output, improved with IV albumin and dopamine, currently being diuresed. The patient is currently off dopamine Paroxysmal atrial fibrillation, expected outcome of surgery currently in sinus rhythm and the patient is currently on IV amiodarone Hyperglycemia, postop, the patient is off IV insulin and the patient is currently on insulin scale coverage History of hypertension. No history of any lung disease, and patient at low increased operative risk based on lung function. Prior history of coronavirus infection, July 2021. Postoperative anemia, expected outcome of surgery, hemoglobin is stable for now plan Keep the patient on BiPAP, no changes in the BiPAP setting, without FiO2 down to 60% only. Repeated blood gases in a.m. Keep the patient BiPAP for today Repeat chest x-ray in the morning LEVEL IS LOW Pleural fluid is small and is not amenable for thoracentesis We will watch for any signs of infection/pneumonia. No clear indication for an infection for now Treatment of atrial fibrillation with IV amiodarone and the patient is also on beta blockers Continue Lasix We'll continue to follow make further recommendations based on her progress. Case was discussed with the cardiothoracic team. Is a critically care evaluation. Evaluation was done and more than 30 minutes. Time with Patient: Greater than 30
[2022-02-26 16:23] LABS: Glucose,Whole Blood 170 mg/dL (70-110)
--- NOTE | 2022-02-26 16:58 | XR ---
EXAMINATION TYPE: XR chest 1V portable DATE OF EXAM: 02/26/2022 4:46 PM COMPARISON: Chest radiographs from 02/27/2020 TECHNIQUE: XR chest 1V portable Frontal view of the chest. CLINICAL INDICATION:Female, 76 years old with history of s/p cabg; FINDINGS: Lungs/Pleura: No evidence of focal consolidation or pneumothorax. Blunting of the costophrenic angles is present. More consolidation like changes within the left lung apices the could be partially due t o patient positioning. Pulmonary vascularity: Pulmonary vascular congestion. Heart/mediastinum: Cardiomediastinal silhouette is enlarged and stable. Left atrial appendage occlusi on device. Musculoskeletal: No acute osseous pathology. Midline sternotomy wires are noted and stable. IMPRESSION: 1. Consolidation within the lung left lung apex could represent developing airspace disease attentio n on follow-up imaging. 2. Cardiomegaly, bilateral pleural effusions with pulmonary vascular congestion.
[2022-02-26 19:39] LABS: Glucose,Whole Blood 111 mg/dL (70-110)
[2022-02-26] MEDS: SENNOSIDES-DOCUSATE SODIUM 1 EACH TAB PO SCH (20:23)
[2022-02-26] MEDS: DEXTROSE 5% IN WATER 100 ML with AMIODARONE 150 MG IV PRN (22:03)
[2022-02-26] MEDS: LACTATED RINGERS 1,000 ML IV SCH (22:08)
[2022-02-26 23:02] LABS: Glucose,Whole Blood 169 mg/dL (70-110)
[2022-02-27] MEDS: HEPARIN SODIUM,PORCINE/PF 5,000 UNIT/0.5 ML SYRINGE SQ SCH ×4 (00:16→23:52)
[2022-02-27] MEDS: METOPROLOL TARTRATE 25 MG TAB PO SCH (00:16)
[2022-02-27 00:23] LABS: Glucose,Whole Blood 137 mg/dL (70-110)
[2022-02-27] MEDS: INSULIN ASPART (NovoLOG) 100 UNIT/ML VIAL SQ SCH ×7 (00:27→23:52)
[2022-02-27 04:55] LABS: Glucose,Whole Blood 134 mg/dL (70-110)
[2022-02-27 06:28] LABS: ALT 95 U/L (4-34); AST 103 U/L (14-36); African American GFR (CKD) >90 (>60 ml/min/1.73 sqM); Albumin 3.7 g/dL (3.5-5.0); Alkaline Phosphatase 109 U/L (38-126); Anion Gap 12 mmol/L; Blood Urea Nitrogen 42 mg/dL (7-17); Calcium 8.6 mg/dL (8.4-10.2); Carbon Dioxide 24 mmol/L (22-30); Chloride 102 mmol/L (98-107); Glucose 124 mg/dL (74-99); Magnesium 2.3 mg/dL (1.6-2.3); Non-African American GFR(CKD) 86 (>60 ml/min/1.73 sqM); Potassium 4.1 mmol/L (3.5-5.1); Sodium 138 mmol/L (137-145); Total Bilirubin 1.2 mg/dL (0.2-1.3); Total Protein 5.9 g/dL (6.3-8.2)
[2022-02-27 06:31] LABS: Basophils % (A) 0 %; Eosinophils # (A) 0.1 k/uL (0-0.7); Eosinophils % (A) 0 %; HCT 32.6 % (34.0-46.0); HGB 10.8 gm/dL (11.4-16.0); Lymphocytes # (A) 0.8 k/uL (1.0-4.8); Lymphocytes % (A) 4 %; MCH 30.1 pg (25.0-35.0); MCHC 33.2 g/dL (31.0-37.0); MCV 90.7 fL (80.0-100.0); Mean Platelet Volume 8.4; Monocytes # (A) 0.9 k/uL (0-1.0); Monocytes % (A) 5 %; Neutrophils # (A) 17.2 k/uL (1.3-7.7); Neutrophils % (A) 89 %; Platelet Count 375 k/uL (150-450); RBC 3.59 m/uL (3.80-5.40); RDW 15.1 % (11.5-15.5); WBC 19.2 k/uL (3.8-10.6)
[2022-02-27] MEDS: PANTOPRAZOLE 40 MG TABLET PO SCH (06:42)
[2022-02-27] MEDS: hydrALAZINE HCL 20 MG/ML 1 ML VIAL IVP PRN (06:53)
[2022-02-27] MEDS: IPRATROPIUM-ALBUTEROL 3 ML NEB INHALATION SCH ×4 (07:16→19:54)
--- NOTE | 2022-02-27 07:21 | XR ---
EXAMINATION TYPE: XR chest 1V portable DATE OF EXAM: 02/27/2022 COMPARISON: 02/26/2022 INDICATION: Respiratory failure TECHNIQUE: Single frontal view of the chest is obtained. FINDINGS: The heart size is moderately enlarged. The pulmonary vasculature is somewhat prominent. Bibasilar infiltrates are present. Left upper lobe infiltrate may be present. Small right pleural ef fusion is likely present. IMPRESSION: 1. Worsening bilateral lung infiltrates. 2. Small right pleural effusion. 3. Moderate cardiomegaly.
--- NOTE | 2022-02-27 07:51 | P.PN ---
Subjective Progress Note Date: 02/27/22 PROGRESS NOTE The patient is a 76-year-old female with history of carotid vascular disease who presented with symptoms of progressive chest discomfort and an abnormal MPI. Underwent cardiac catheterization on the and was found to have severe distal left main disease with [id number] disease in the RCA. She is scheduled to undergo CABG today. Her echo showed an ejection fraction of 50% with mild lateral wall hypokinesis and [id number] mitral regurgitation. She's feeling well this morning, denies any chest discomfort or dizziness. She is in sinus mechanism. Scheduled to undergo CABG this afternoon. She continues to be on aspirin, Lipitor 80 mg daily, isosorbide mononitrate 15 mg daily, lisinopril 30 mg daily, metoprolol succinate 25 mg daily February 24: The patient underwent off-pump CABG yesterday with RAMOS to the LAD and SVG to the OM with ligation of the left atrial appendage and placement of intra-aortic balloon pump because of worsening ischemia at the start of surgery. She had atrial arrhythmia requiring cardioversion earlier. She is extubated, in sinus mechanism, intra-aortic balloon pump at 1:2 with good blood pressure and urinary output. She is on no vasopressor. She is awake, alert and following commands. At the end of the procedure she had a good ejection fraction with mild mitral regurgitation. She continues to be on aspirin, Lipitor 80 mg daily, Plavix 75 mg daily, metoprolol tartrate 12-1/2 mg twice a day. February 25: The patient intra-aortic balloon pump was removed yesterday. She was hypoxemic during the night requiring BiPAP. She denies any chest discomfort. She continues to be in sinus mechanism. She denies any chest discomfort, dizziness or palpitations. She received diuretics yesterday with good output. She continues to be on aspirin, Plavix, low-dose dopamine, metoprolol 12-1/2 mg twice a day, Lipitor 80 mg daily. Her chest x-ray shows bilateral pleural effusion February 26: The patient is awake and alert, continues to be in sinus mechanism, she continues to be on the BiPAP but feels better. Her breathing is stable. She is denying any chest discomfort, dizziness or palpitations. She has no nausea. She has good urinary output. She continues to be on aspirin once a day, amiodarone 400 mg twice a day, Lipitor 80 mg daily, Plavix 75 mg daily, insulin, metoprolol tartrate 25 mg twice a day. Her chest x-ray shows bilateral pleural effusion with mild congestion, she diuresed well yesterday the IV Lasix February 27: The patient continues to be on a BiPAP, hypoxic off of it. She had an episode of atrial fibrillation back in sinus mechanism to be on amiodarone. Her blood pressure is stable and has not required a suppressive. She denies any chest discomfort but she is dyspneic. She has no nausea or vomiting. Her urinary output has been stable. Her chest x-ray shows worsening infiltrate bilaterally. She continues to be on amiodarone 400 mg twice a day, aspirin, Lipitor 80 mg daily, Plavix 75 mg daily, Lasix 20 mg IV every 12 hours, metoprolol tartrate 25 mg 3 times a day PHYSICAL EXAMINATION: Blood pressure 154/100 with a heart rate in the 80s LUNGS: Decreased breath sounds at the bases HEART: Regular rate and rhythm, S1, S2. No S3. systolic murmur at the base ABDOMEN: Soft, nontender, no organomegaly EXTREMETIES: No edema, LAB: Hemoglobin 10.8, BUN 42, creatinine 0.69, potassium 4.1 IMPRESSION: 1. Status post CABG, RAMOS to the LAD and SVG to obtuse marginal branch with known severe left main disease. 2. Post removal of Intra-aortic balloon pump 3. History of hyperlipidemia 4. Hypoxemia with lung congestion, probable lung injury post CABG 5. Hypertension PLAN: 1. IV diuretics as needed 2. Follow blood pressure and add TASHI inhibitor 3. Wean BiPAP as tolerated to nasal cannula 4. Continue incentive spirometry 5. Increase activity as tolerated. 6. Follow renal functions Objective - Vital Signs Vital signs: Vital Signs Temp 96.0 F L 02/27/22 04:00 Pulse 84 02/27/22 07:30 Resp 30 H 02/27/22 07:00 BP 154/107 02/27/22 07:00 Pulse Ox 91 L 02/27/22 07:00 FiO2 70 02/27/22 07:16 Intake & Output 02/26/22 02/27/22 02/27/22 18:59 06:59 18:59 Intake Total 159 100 Output Total 835 647 14 Balance -676 -547 -14 Weight 114 kg Intake: IV 159 100 0.9 Pressure bag 39 Dextrose 5% in Water 100 100 ml @ 618 mls/hr IV .Q10M PRN with Amiodarone 150 mg Rx#:[id number] Lactated Ringers 1,000 ml 120 @ 20 mls/hr IV .Q24H CHANTELLE Rx#:[id number] Output: Urine 835 647 14 Other: Voiding Method Indwelling Catheter Indwelling Catheter ABP, PAP, CO, CI - Last Documented Arterial Blood Pressure 281/281 Pulmonary Artery Pressure 43/24 Cardiac Output 4 Cardiac Index 1.9 - Labs CBC & Chem 7: 02/27/22 05:45 02/27/22 05:45 Labs: Abnormal Lab Results - Last 24 Hours (Table) 02/26/22 02/26/22 02/26/22 Range/Units 08:01 11:52 16:22 WBC (3.8-10.6) k/uL RBC (3.80-5.40) m/uL Hgb (11.4-16.0) gm/dL Hct (34.0-46.0) % Neutrophils # (1.3-7.7) k/uL Lymphocytes # (1.0-4.8) k/uL BUN (7-17) mg/dL Glucose (74-99) mg/dL POC Glucose (mg/dL) 123 H 120 H 170 H (70-110) mg/dL AST (14-36) U/L ALT (4-34) U/L Total Protein (6.3-8.2) g/dL 02/26/22 02/26/22 02/27/22 Range/Units 19:37 23:00 00:22 WBC (3.8-10.6) k/uL RBC (3.80-5.40) m/uL Hgb (11.4-16.0) gm/dL Hct (34.0-46.0) % Neutrophils # (1.3-7.7) k/uL Lymphocytes # (1.0-4.8) k/uL BUN (7-17) mg/dL Glucose (74-99) mg/dL POC Glucose (mg/dL) 111 H 169 H 137 H (70-110) mg/dL AST (14-36) U/L ALT (4-34) U/L Total Protein (6.3-8.2) g/dL 02/27/22 02/27/22 02/27/22 Range/Units 04:53 05:45 05:45 WBC 19.2 H (3.8-10.6) k/uL RBC 3.59 L (3.80-5.40) m/uL Hgb 10.8 L (11.4-16.0) gm/dL Hct 32.6 L (34.0-46.0) % Neutrophils # 17.2 H (1.3-7.7) k/uL Lymphocytes # 0.8 L (1.0-4.8) k/uL BUN 42 H (7-17) mg/dL Glucose 124 H (74-99) mg/dL POC Glucose (mg/dL) 134 H (70-110) mg/dL AST 103 H (14-36) U/L ALT 95 H (4-34) U/L Total Protein 5.9 L (6.3-8.2) g/dL
[2022-02-27] MEDS: FUROSEMIDE 10 MG/ML 2 ML VIAL IV SCH (08:09)
[2022-02-27] MEDS: AMIODARONE 200 MG TAB PO SCH (08:09)
[2022-02-27] MEDS: CLOPIDOGREL 75 MG TAB PO SCH (08:09)
[2022-02-27] MEDS: METOPROLOL TARTRATE 50 MG TAB PO SCH ×2 (08:09→20:02)
[2022-02-27] MEDS: ATORVASTATIN 80 MG TAB PO SCH (08:09)
[2022-02-27] MEDS: ASPIRIN 325 MG TAB PO SCH (08:09)
[2022-02-27] MEDS: MUPIROCIN 2% OINT 22 GM TUBE NASAL SCH ×2 (08:11→20:02)
--- NOTE | 2022-02-27 08:48 | P.PN ---
Subjective Progress Note Date: 02/27/22 This is a patient who had a recent heart catheterization, showing a critical and complex lesion involving the distal left main coronary artery, also, the ostial left circumflex, and ostial LAD. The lesions appear to be in the range of 80- 90%, and the patient was also noted to have elevated left ventricular end- diastolic filling pressures. The patient is currently being evaluated by cardiothoracic surgery for possible bypass grafting. We will reassess to see the patient preoperatively, and evaluate her lung function. The patient is a lifelong nonsmoker. She has no history of lung disease. Based on her FEV1, and her MVV, she was in the low operative risk range. Outpatient medications includ ed amlodipine, aspirin, metoprolol, lisinopril, zinc, vitamin D3, ascorbic acid, lactulose, and indoor. Her only major medical problem is hypertension. She does have a history of previous coronavirus infection and was seen by my partner in July 2021. CBC is completely normal. PTT is 39.7. Sodium 141, potassium 3.7, chlorides 111, CO2 24, BUN 12, creatinine 0.63. Cholesterol was 182. Urine was negative. Testing for coronavirus was negative. Chest x-ray shows mild interstitial edema. Currently she is on room air. Progress note dated 02/22/2022. 76-year-old female we saw yesterday in consultation. The patient has significant coronary disease, involving the left main coronary artery. The patient is apparently going to have open heart surgery one day this week. The exact day has not been decided yet. Clinically, she's. Stable. She is on room air. She is a lifelong nonsmoker. Lung function would suggest that she's at a very low increased operative risk based on her FEV1 and MVV. Labs today show white count of 6.1, with a normal hemoglobin, hematocrit, and platelet count. The patient's PTT is 60.2. Sodium 141, potassium 3.6, chlorides 111, CO2 24, BUN 12, creatinine 0.72. 02/23/2022, the patient is awaiting bypass surgery. The patient is calm and comfortable. No respiratory difficulties whatsoever. She is using incentive spirometer. Her preop FEV1 is order of 72% of predicted. No angina. No palpitations. No chest pain. She is hemodynamically stable at this point in time. She remains on IV heparin. I did introduce myself and I will take care o f this patient postop, managed to ventilator and the necessity pulmonary care following her thoracotomy bypass surgery.no other active issues for now. The patient was sent comes at 6.2 with a hemoglobin 4.5. She is on IV heparin with a PTT of 55. BUN is at 12 with a creatinine 0.6 and the sodium level is at 140. 02/24/2022, I'm seeing the patient for a follow-up. The patient was taken to the operating room yesterday and the patient underwent an off-pump coronary artery bypass surgery with RAMOS to LAD and saphenous vein graft to obtuse marginal. The patient also had a left facial appendage clipping. Estimated blood loss was 400 mL. The patient received a total of 3 L of intraoperative IV fluids. Note that the patient was having issues with hypotension and there was some interval worsening of the mitral regurgitation intraoperatively. At that point, it was decided to insert an intra-aortic balloon pump and this was done through the right common femoral artery. Once the intra-aortic balloon pump was initiated, the patient's hemodynamics improved dramatically. The patient was given a postop echo cardiac exam that showed a mild MR and good ejection fraction. The intra-aortic balloon pump was placed on a one-to-one augmentation and following that the patient was brought into the intensive care unit. The patient subsequently was weaned off the sedation and the patient was extubated without any major difficulties within a few hours. The patient was extubated and the fourth hours after arriving to the ICU. The patient had with good weaning parameters. The patient had a blood gas that showed adequate oxygenation and ventilation. Based on that, the patient was extubated. This morning, the patient remains on oxygen at 6 L per minute nasal cannula. The chest x-ray showing cardiomegaly. The patient is a mediastinal and left pleural chest tube. Output from the chest tubes have been 250 mL from the mediastinum and 280 from the left pleural since surgery. No evidence of any air leak. The chest x-ray shows no evidence of any pneumothorax. Hemodynamically, the patient is currently receiving intra-aortic balloon pump augmentation of 1-2. The patient has adequate cardiac output of 4.3 and an index of 2. She is on no pressors for now. The intra-aortic balloon pump will be removed for now. The patient is stable to systemic adequate blood pressure was the patient being off the balloon pump. Urine output is in order of 20 mL an hour. The patient is a febrile. The patient is awake and following commands thoracic questions appropriately. Pulmonary artery pressures are 38 over 18 mmHg. Lower blood work from work today is showing a sodium of 139, potassium of 4, bicarb of 26, BUN of 14 with a creatinine of 0.6. The white cell count is at 9.7 with a hemoglobin of 9.3 and a platelet count of 195. AST is 85 with an ALT of 60 and alkaline phosphatase of 41. Magnesium level is at 2.1. Note that the patient had a run of atrial fibrillation intraoperatively. The patient was loaded with amiodarone and currently the patient is on 0.5 mg per minute of amiodarone infusion. The patient is in a normal sinus rhythm. The patient is also on an insulin drip running at 2.5 units an hour with adequate blood sugar control. The patient's of lactated Ringer at the rate of 50 mL an hour. As mentioned, awake and alert and the sternum is dry clean and intact. No other issues otherwise for now. Breaks 02/25/2022, I'm seeing the patient for a follow-up. The patient is postop day #2. Note that this patient was extubated successfully without any issues. Subsequently, as of yesterday afternoon, the patient became progressively more hypoxic. Note that during the day, the patient was given IV albumin a total of 750 mL to improve her urine output. This did help and ultimately dopamine was added at renal dose to improve her urine output. Subsequently, she became more hypoxic and the patient became more short of breath and initially she went up to 15 L high flow and later on the patient was placed on a BiPAP. She was kept on BiPAP throughout the night and the patient is currently on a BiPAP at a pressure of 12/5 cm of water and FiO2 of on the percent. She is able to generate tidal volumes above 500. Respiratory rate is in the mid 20s. Her breathing is slightly labored even on the BiPAP, yet she is able to tolerate the machine w ithout any major difficulties and she is awake and alert and she is following commands and answering questions and she is neurologically intact. At the same time, the patient had a blood. This morning that showed a pH of 7.97.49 with a pCO2 of 35 and a pO2 of 55 and this was on FiO2 of 85% and based on that the FiO2 was brought up to 100%. The chest x-ray showing cardiomegaly. There is some infiltration of the right lung and some atelectatic changes in lung bases. There is concern for an evolving right lung pneumonia although this is quite early in the postoperative course. In any rate, the patient is being diuresed for now and the patient is producing adequate amount of urine output. She did have a spike of temperature 100.4 yesterday and currently she is afebrile. The white cell count today is at 12.5 which is comparable to yesterday with a hemoglobin of 9.8 and a platelet count of 192. In terms of the chest tubes, the patient is a mediastinal and left pleural chest tube, output has been noted and it's in the order of overnight 80 mL overnight and 400 mL over the past 24 hours in the mediastinal chest tube, 6 disease overnight and 400 mL over the past 24 hours in the left pleural chest tube. Coats-Chandrakant catheter still in place. The cardiac output is currently at 4.3 with an index of 2.0. The PA diastolic is in the order of extreme millimeters of mercury. The patient otherwise has normal renal function. Creatinine is at 0.6. Sodium is at 136. She is obviously n othing by mouth at this point in time as the patient is BiPAP dependent. Cardiac rhythm is still sinus and the patient remains on amiodarone. She remains on aspirin and Plavix. Routine postoperative care is being implemented this point in time. Insulin drip is off and the patient is currently on slice K coverage every 4 hours. 02/26/2022, I'm seeing the patient for a follow-up. The patient is postop day #3. Note that after a successful extubation, the patient was placed on a BiPAP because of ongoing hypoxic respiratory failure. The patient stayed on BiPAP throughout the day yesterday and this morning the patient remains on a BiPAP. Current BiPAP settings of 12/5 with an FiO2 of 80%. While in the BiPAP, the patient is urinating a tidal volume of about 450 with a respiratory rate in the mid 20s and a minute ventilation of 13 L per minute. The chest x-ray showing some further investigation right lung base. Based on that, an ultrasound of the chest was done and there was minimal amount of pleural effusion the right lung base and I think the predominant findings are significant atelectasis in the lung bases right more than left. Note that the chest tubes were all removed ye sterday and the patient the left pleural and mediastinal chest tube both of them removed. Morning blood gases showed a pH of 7.49 with a pCO2 of 33 and pO2 of 60. The patient's FiO2 is currently at 80% on the BiPAP and she is pulse oxing 95%. I dropped her down to 60%. Meanwhile, the pro-calcitonin level obtained yesterday was low at 0.18. The patient was being diuresis with IV Lasix and input output balance has been negative for on 22 mL over the past 24 hours and the patient was taken off the dopamine. The the white cell count is slightly higher compared to yesterday. He 0.9 with a hemoglobin of 10.2 and a platelet count of 266. Sodium is at 135 with a BUN of 30 and creatinine 0.6. The patient is awake. The patient is alert. She is following commands and moving extremities. She is currently on examination aspirin and Plavix. She is also on metoprolol 25 mg by mouth 3 times a day. Cardiac rhythm was sinus and later on she did have a epidural of atrial fibrillation. There is being managed by the cardiothoracic team. The patient will be started back on amiodarone bolus and maintenance. No pressors for now. 02/27/2022, the patient is postop day #4. The patient continues to have diffuse but the pulmonary infiltrates with hypoxic respiratory failure that occurred p ost extubation. The patient remains on a BiPAP at a pressure of 10/5 cm of water with an FiO2 of 70%. Current pulse ox is around 96%. She is a bit disturbed by the BiPAP and she wants to give herself a break. She is urinating adequate tidal volumes above 700 mL an minute ventilation remains quite elevated. The chest x-ray shows small lung volumes, atelectatic changes in lung bases with diffuse breath and pulmonary infiltrates. She has also cardiomegaly. All of the chest tubes are removed. The patient is afebrile. White cell count remains elevated at 19. The patient is producing adequate amount of urine output. The patient is on IV Lasix and overall fluid balance over the past 24 h ours shows that she has been in a negative fluid balance in the urine output is adequate. Input output over the past 24 hours has been in the order of -1.2 L. Otherwise, the rest of the blood work shows a white cell count of 19.2 with a hemoglobin of 10.8 and a platelet count of 375. BUN is 42 with a creatinine of 0.69 the sodium level is at 138 with a potassium level of 4.1. As mentioned, the ultrasound of the chest was done yesterday and there was no evidence of any significant sizable pleural effusion. The chest x-ray from today shows a small right-sided pleural effusion, cardiomegaly along with diffuse breath and pulmonary infiltrates. The patient also had an episode of atrial fibrillation with rapid ventricular response. She was given amiodarone bolus and currently she is on amiodarone at a dose of 400 mg by mouth twice a day. Her current cardiac rhythm is back to sinus. Objective - Vital Signs Vital signs: Vital Signs Temp 97.2 F L 02/27/22 08:00 Pulse 83 02/27/22 08:00 Resp 35 H 02/27/22 08:00 BP 158/103 02/27/22 08:00 Pulse Ox 96 02/27/22 08:00 FiO2 70 02/27/22 08:00 Intake & Output 02/26/22 02/27/22 02/27/22 18:59 06:59 18:59 Intake Total 159 100 150 Output Total 835 647 74 Balance -436 547 76 Weight 114 kg Intake: IV 159 100 0.9 Pressure bag 39 Dextrose 5% in Water 100 100 ml @ 618 mls/hr IV .Q10M PRN with Amiodarone 150 mg Rx#:[id number] Lactated Ringers 1,000 ml 120 @ 20 mls/hr IV .Q24H [facility] Rx#:[id number] Oral 150 Output: Urine 835 647 74 Other: Voiding Method Indwelling Catheter Indwelling Catheter ABP, PAP, CO, CI - Last Documented Arterial Blood Pressure 281/281 Pulmonary Artery Pressure 43/24 Cardiac Output 4 Cardiac Index 1.9 - Exam CONSTITUTIONAL: Appears comfortable, cooperative, no acute distress RESPIRATORY: Lungs sounds diminished bilaterally, right greater than left. Respirations even, nonlabored. Currently on bipap, FiO2 100%, 10/5 with oxygen saturation 99%. Strong nonproductive cough. CARDIOVASCULAR: S1, S2 present. Regular rate and rhythm, sinus rhythm on telemetry. Sternum stable. Palpable peripheral pulses bilaterally. Trace generalized edema present. No calf pain or tenderness noted. Heart hugger in place with patient demonstrating appropriate use. Antiembolism stockings, SCDs present. GASTROINTESTINAL: Abdomen soft, nontender, nondistended. Active bowel sounds present 4 quadrants, tympanic to percussion. Tolerating liquids for medications. Denies flatus GENITOURINARY: Boss present draining cloudy, yellow urine. Output overnight is in order of 30-40 mL an hour INTEGUMENTARY: Skin is warm and dry with evidence of good perfusion. Anterior chest incision well approximated and covered with dry intact dressing. Right lower extremity EVH site well approximated without redness or drainage. NEUROLOGIC: Cranial nerves II through XII intact MUSKULOSKELETAL: Able to move all extremities, strength equal bilaterally PSYCHIATRIC: Alert and oriented to person place and time, appropriate affect, intact judgment and insight INVASIVE LINES AND TUBES: All of the lines have been removed - Labs CBC & Chem 7: 02/27/22 05:45 02/27/22 05:45 Labs: Abnormal Lab Results - Last 24 Hours (Table) 02/26/22 02/26/22 02/26/22 Range/Units 11:52 16:22 19:37 WBC (3.8-10.6) k/uL RBC (3.80-5.40) m/uL Hgb (11.4-16.0) gm/dL Hct (34.0-46.0) % Neutrophils # (1.3-7.7) k/uL Lymphocytes # (1.0-4.8) k/uL BUN (7-17) mg/dL Glucose (74-99) mg/dL POC Glucose (mg/dL) 120 H 170 H 111 H (70-110) mg/dL AST (14-36) U/L ALT (4-34) U/L Total Protein (6.3-8.2) g/dL 02/26/22 02/27/22 02/27/22 Range/Units 23:00 00:22 04:53 WBC (3.8-10.6) k/uL RBC (3.80-5.40) m/uL Hgb (11.4-16.0) gm/dL Hct (34.0-46.0) % Neutrophils # (1.3-7.7) k/uL Lymphocytes # (1.0-4.8) k/uL BUN (7-17) mg/dL Glucose (74-99) mg/dL POC Glucose (mg/dL) 169 H 137 H 134 H (70-110) mg/dL AST (14-36) U/L ALT (4-34) U/L Total Protein (6.3-8.2) g/dL 02/27/22 02/27/22 Range/Units 05:45 05:45 WBC 19.2 H (3.8-10.6) k/uL RBC 3.59 L (3.80-5.40) m/uL Hgb 10.8 L (11.4-16.0) gm/dL Hct 32.6 L (34.0-46.0) % Neutrophils # 17.2 H (1.3-7.7) k/uL Lymphocytes # 0.8 L (1.0-4.8) k/uL BUN 42 H (7-17) mg/dL Glucose 124 H (74-99) mg/dL POC Glucose (mg/dL) (70-110) mg/dL AST 103 H (14-36) U/L ALT 95 H (4-34) U/L Total Protein 5.9 L (6.3-8.2) g/dL Assessment and Plan Plan: Symptomatic coronary disease, post coronary artery bypass surgery 2, off-pump and the patient is postop day #4. The patient is post intra-aortic balloon pump insertion for hemodynamic support inserted at a time of surgery was subsequently removed and the patient remains hemodynamically stable. Note that the patient was extubated without any major difficulties and over the past 12 hours, and since then, the patient has developed diffuse but the pulmonary infiltrates with hypoxic respiratory failure, BiPAP dependent for now. Post thoracotomy, chest tubes are removed, small right-sided pleural effusion on ultrasound the chest that was conducted yesterday. Less on the right lung base remains diminished and the patient remains BiPAP dependent. Acute hypoxic history failure, likely due to postsurgical ARDS in addition to extensive atelectatic changes in lung bases more so on the right with a small right-sided pleural effusion. The patient is currently on a BiPAP at a pressure of 10/5 and FiO2 of 70% with a pulse ox of 96%. Paroxysmal atrial fibrillation, expected outcome of surgery currently in sinus rhythm and the patient is currently on po amiodarone Hyperglycemia, postop, the patient is off IV insulin and the patient is currently on insulin scale coverage History of hypertension. No history of any lung disease, and patient at low increased operative risk based on lung function. Prior history of coronavirus infection, July 2021. Postoperative anemia, expected outcome of surgery, hemoglobin is stable for now Leukocytosis plan Keep the patient on BiPAP, on and off during the day. 4 today, I think it's worthwhile also to give her a trial of Arava would 100% nonrebreather facemask and assess the patient's ability to oxygenate with high flow oxygen. We'll may need also to obtain a blood gas while her being on interval she is able to tolerate. Repeat the pro-calcitonin level. Of concern is ongoing possibility of an infection. Discussed the case with the cardiothoracic surgeon. We'll cover this patient with IV cefepime and vancomycin for the next 24-48 hours pending further evaluation. Prednisone 40 mg daily for potential ARDS IV Lasix pleural effusion is low/small on the right side and it was not amicable for thoracentesis Monitor the cardiac rhythm and continue oral amiodarone. The cardiac rhythm is sinus and beta ena was increased to metoprolol 50 mg twice a day Continue Lasix IV 20 mg every 12 hours Possible intubation if there is any further decompensation the respiratory status. We'll continue to follow make further recommendations based on her progress. Case was discussed with the cardiothoracic team. Is a critically care evaluation. Evaluation was done and more than 30 minutes. Time with Patient: Greater than 30
[2022-02-27] MEDS ORDERED: lisinopriL 5 MG TAB PO SCH (09:00)
[2022-02-27] MEDS ORDERED: VANCOMYCIN IV PER PHARMACY 1 EACH MISC MISCELLANE PRN (09:15)
[2022-02-27] MEDS ORDERED: CEFEPIME 2 GM in SODIUM CHLORIDE 0.9% 100 ML IVPB STA (09:21)
[2022-02-27] MEDS: DEXTROSE 5% IN WATER 100 ML with AMIODARONE 150 MG IV PRN (09:23)
--- NOTE | 2022-02-27 09:45 | P.PN ---
Subjective Progress Note Date: 02/27/22 Principal diagnosis: Coronary artery disease with left main disease, unstable angina, atrial arrhythmias. Past medical history significant for hypertension, hyperlipidemia, SVT, left internal carotid artery stenosis, obesity, lifetime nonsmoker, remains unvaccinated against Covid, and family history of coronary artery disease. POD #4 off-pump coronary artery bypass grafting 2 with left internal mammary artery to the left anterior descending artery, reverse saphenous vein graft to the obtuse marginal artery, ligation of the left atrial appendage with a 40 mm AtriCure clip, endovascular vein harvest of the right greater saphenous vein, placement of intra-aortic balloon pump. Postoperative acute blood loss anemia, expected given hemodilution. Acute hypoxic respiratory failure requiring bipap. The patient was seen and examined in follow-up today at her bedside in the intensive care unit. Currently she is lying in bed, is awake, alert, oriented 3 and is in no acute apparent distress. She denies any complaints of pain at this time although is complaining of some shortness of breath despite having the BiPAP in place. BiPAP settings are currently 10/5 with FiO2 70% and oxygen saturations 96% on current settings. Unable to tolerate use of her incentive spirometry at this time. Bedside telemetry is showing normal sinus rhythm heart rate 84 BPM. No further episodes of atrial fibrillation and she remains on amiodarone 400 mg by mouth twice a day. She remains hemodynamically stable and is currently on no inotropic pressor support. Boss catheter remains in place for accurate I's and O's with urine output 360 mL output in the last 8 hours. Laboratory results this morning show a WBC count of 19.2, hemoglobin 10.8, hematocrit 32.6, platelets 375, sodium 138, potassium 4.1, BUN 42, creatinine 0.69, glucose 124, calcium 8.6, magnesium 2.3, AST 103, and ALT 95. She has been afebrile the last 24 hours. Calcitonin level from 02/25/2022 0.18. Chest x-ray from this morning shows a small right sided pleural effusion, pulmonary infiltrates and moderate cardiomegaly. Objective - Vital Signs Vital signs: Vital Signs Temp 97.2 F L 02/27/22 08:00 Pulse 101 H 02/27/22 09:00 Resp 28 H 02/27/22 09:00 BP 154/81 02/27/22 09:00 Pulse Ox 96 02/27/22 09:00 FiO2 70 02/27/22 08:00 Intake & Output 02/26/22 02/27/22 02/27/22 18:59 06:59 18:59 Intake Total 159 100 150 Output Total 835 647 74 Balance -692 -311 76 Weight 114 kg Intake: IV 159 100 0.9 Pressure bag 39 Dextrose 5% in Water 100 100 ml @ 618 mls/hr IV .Q10M PRN with Amiodarone 150 mg Rx#:[id number] Lactated Ringers 1,000 ml 120 @ 20 mls/hr IV .Q24H CHANTELLE Rx#:[id number] Oral 150 Output: Urine 835 647 74 Other: Voiding Method Indwelling Catheter Indwelling Catheter ABP, PAP, CO, CI - Last Documented Arterial Blood Pressure 281/281 Pulmonary Artery Pressure 43/24 Cardiac Output 4 Cardiac Index 1.9 - Exam CONSTITUTIONAL: Currently laying in bed in the intensive care unit. Appears comfortable, cooperative, no acute distress RESPIRATORY: Lungs sounds diminished bilaterally, right greater than left. Respirations are symmetrical and nonlabored. Currently on bipap, FiO2 100%, 10/5 with oxygen saturation 96%. Strong nonproductive cough. CARDIOVASCULAR: S1, S2 present. Regular rate and rhythm, sinus rhythm on telemetry. Sternum stable. Palpable peripheral pulses bilaterally. Trace generalized edema present. No calf pain or tenderness noted. Heart hugger in place with patient demonstrating appropriate use. Antiembolism stockings, SCDs present. GASTROINTESTINAL: Abdomen soft, nontender, nondistended. Active bowel sounds present 4 quadrants, tympanic to percussion. Tolerating liquids for medi cations. Passing flatus. GENITOURINARY: Boss present draining cloudy, yellow urine. Urine output 360 mL in the last 8 hours. INTEGUMENTARY: Skin is warm and dry with evidence of good perfusion. Midline sternal incision is well approximated and covered with dry intact dressing. Right lower extremity EVH site well approximated without redness or drainage. NEUROLOGIC: Cranial nerves II through XII intact. No focal deficits. MUSKULOSKELETAL: Able to move all extremities, strength equal bilaterally. PSYCHIATRIC: Alert and oriented to person place and time, appropriate affect, intact judgment and insight. - Labs CBC & Chem 7: 02/27/22 05:45 02/27/22 05:45 Labs: Abnormal Lab Results - Last 24 Hours (Table) 02/26/22 02/26/22 02/26/22 Range/Units 11:52 16:22 19:37 WBC (3.8-10.6) k/uL RBC (3.80-5.40) m/uL Hgb (11.4-16.0) gm/dL Hct (34.0-46.0) % Neutrophils # (1.3-7.7) k/uL Lymphocytes # (1.0-4.8) k/uL BUN (7-17) mg/dL Glucose (74-99) mg/dL POC Glucose (mg/dL) 120 H 170 H 111 H (70-110) mg/dL AST (14-36) U/L ALT (4-34) U/L Total Protein (6.3-8.2) g/dL 02/26/22 02/27/22 02/27/22 Range/Units 23:00 00:22 04:53 WBC (3.8-10.6) k/uL RBC (3.80-5.40) m/uL Hgb (11.4-16.0) gm/dL Hct (34.0-46.0) % Neutrophils # (1.3-7.7) k/uL Lymphocytes # (1.0-4.8) k/uL BUN (7-17) mg/dL Glucose (74-99) mg/dL POC Glucose (mg/dL) 169 H 137 H 134 H (70-110) mg/dL AST (14-36) U/L ALT (4-34) U/L Total Protein (6.3-8.2) g/dL 02/27/22 02/27/22 Range/Units 05:45 05:45 WBC 19.2 H (3.8-10.6) k/uL RBC 3.59 L (3.80-5.40) m/uL Hgb 10.8 L (11.4-16.0) gm/dL Hct 32.6 L (34.0-46.0) % Neutrophils # 17.2 H (1.3-7.7) k/uL Lymphocytes # 0.8 L (1.0-4.8) k/uL BUN 42 H (7-17) mg/dL Glucose 124 H (74-99) mg/dL POC Glucose (mg/dL) (70-110) mg/dL AST 103 H (14-36) U/L ALT 95 H (4-34) U/L Total Protein 5.9 L (6.3-8.2) g/dL - Imaging and Cardiology Chest x-ray: report reviewed, image reviewed Assessment and Plan Assessment: 1. Coronary artery disease with left main disease, status post 2 vessel CABG 2. Hypertension 3. Hyperlipidemia, cholesterol 182, LDL 122 4. SVT, intraoperative atrial arrhythmias with cardioversion, status post left atrial appendage ligation 5. Left internal carotid artery stenosis 6. Obesity 7. Never smoker, preoperative FEV1 72% of predicted 8. History of covid infection in July 2021, remains unvaccinated against Covid 9. Family history of coronary artery disease 10. Nasal swab positive for MSSA, treated with mupirocin 11. Preserved LV function with mild to moderate mitral regurgitation on transthoracic echocardiogram 12. Acute blood loss anemia 13. Acute hypoxic respiratory failure requiring bipap 14. Leukocytosis with low grade fever, urine culture sent Plan: 1. Continue to maximize medical management with aspirin, Plavix, statin, beta ena. Will increase metoprolol tartrate to 50 mg by mouth twice a day. 2. Continue amiodarone 400 mg by mouth twice a day for A. fib prophylaxis. No anticoagulation necessary at this point. 3. Wean O2 as tolerated. Encourage incentive spirometry 10 times every hour while awake once off bipap. Bronchodilators per pulmonology. 4. Increase activity as tolerated. PT/OT/cardiac rehab following. 5. GI/DVT prophylaxis. 6. Will monitor daily labs and CXRs. Electrolyte replacement per protocol. 7. Pain control with current medication regimen. 8. Insulin management per primary care service. Patient is not diabetic, preoperative hemoglobin A1c 5.6%. 9. Continue Boss for another 24 hours for strict accurate intake and output. Daily weights 10. The patient is being started on antibiotics cefepime 2 g IV piggyback every 8 hours and vancomycin pharmacy to dose per pulmonary/critical care medicine recommendations. 11. Prednisone 40 mg by mouth daily was initiated by pulmonary/critical care medicine recommendations. 12. More recommendations to follow based on patient's clinical course Time with Patient: Greater than 30
--- NOTE | 2022-02-27 09:47 | US ---
EXAMINATION TYPE: US vein mapping BILAT DATE OF EXAM: 02/20/2022 2:43 PM COMPARISON: NONE CLINICAL HISTORY: preop cardiac surgery. SIDE PERFORMED: Bilateral TECHNIQUE: Lower extremity saphenous vein is examined and measured utilizing real time linear array sonography. Patient History: Heart Disease: Yes DUPLEX FINDINGS: Greater Saphenous: Color flow seen Measurements in mm: Right Greater Saphenous: Groin: 9.8 x 7.2 mm High Thigh: 5.7 x 5.4 mm Mid Thigh: 3.6 x 2.8 mm Above Knee: 2.9 x 2.8 mm Knee: 4.1 x 3.2 mm Below Knee: 2.9 x 2.6 mm Mid Calf: 2.6 x 2.6 mm At Ankle: 3.2 x 2.4 mm Left Greater Saphenous: Groin: 6.7 x 6.1 mm High Thigh: 6.6 x 6.3 mm Mid Thigh: 6.1 x 4.9 mm Above Knee: 4.3 x 4.8 mm Knee: 3.8 x 3.5 mm Below Knee: 4.1 x 3.8 mm Mid Calf: 2.8 x 2.9 mm At Ankle: 3.2 x 3.4 mm IMPRESSION: 1. Bilateral GSV measurements listed above. 2. Performing surgeon to determine viability as conduit.
--- NOTE | 2022-02-27 10:22 | P.CONS ---
History of Present Illness - Chief Complaint Cardiac debility - History of Present Illness I had the opportunity to see patient for inpatient rehab consultation with regard to cardiac debility. She was admitted to [facility] February 20 for cardiac catheterization performed Dr. Guidry which demonstrated significant coronary artery disease. Value by Dr. Gonzalez and did undergo CABG two-vessel with left atrial appendage February 23. Seen by Dr. Albert and Dr. Florian in ICU. Multiple chest x-rays followed and note increasing congestion infusions. Moderate cardiomegaly. PT and OT prescribed but unable to her to perform yesterday perhaps today. Previous functional history as elicited from patient: 76-year-old right-handed white female who is lives and fifth we'll alone. Son lives next door and grandkids are in and out. Describes independent with own cooking, laundry, driving, standing shower gait without device. PCP is Dr. Jay. Denies tobacco or alcohol. Review of Systems Review of systems: ENT: Denies sneezes or discharge. Eyes: Denies discharge or photophobia. Cardiac: Ubaldo. Pulmonary: Moderate shortness of breath. Breast: Denies discharge or lumps. Gastrointestinal: Denies nausea, emesis, constipation, diarrhea. Genitourinary: Denies discharge or frequency. Musculoskeletal: Denies muscle or bone aches. Neurologic: Denies motor or sensory change. Endocrine: Denies shakes or sweats. Oncology: Denies cancers. Dermatologic: Denies rash, itching, pruritus. ALLERGY/immunology: Denies sneezes, rashes. Past Medical History Past Medical History: Fibromyalgia, Hyperlipidemia, Hypertension, Osteoarthritis (OA), Supraventricular Tachycardia (SVT) Additional Past Medical History / Comment(s): urinary incontinence-wears pad, past MRI should ?stroke, severe left internal carotid artery stenosis followed by Dr. Fitzgerald, frequent constipation History of Any Multi-Drug Resistant Organisms: None Reported Past Surgical History: Appendectomy, Hysterectomy, Joint Replacement, Orthopedic Surgery Additional Past Surgical History / Comment(s): left knee replacement, HEMORROIDECTOMY, carmita cataracts removed, surg. for glaucoma right eye Past Anesthesia/Blood Transfusion Reactions: No Reported Reaction Smoking Status: Never smoker Past Alcohol Use History: None Reported Past Drug Use History: None Reported - Past Family History Mother Family Medical History: Coronary Artery Disease (CAD) Additional Family Medical History / Comment(s): HAD STENTS Brother(s) Family Medical History: Myocardial Infarction (SD) Additional Family Medical History / Comment(s): CABG Sister(s) Family Medical History: Cancer Additional Family Medical History / Comment(s): colon cancer Father Family Medical History: Coronary Artery Disease (CAD) Additional Family Medical History / Comment(s): HAD STENTS Medications and Allergies Home Medications Medication Instructions Recorded Confirmed Type Aspirin EC [Ecotrin Low Dose] 81 mg PO BID 10/26/20 02/20/22 History Metoprolol Succinate (ER) [Toprol 25 mg PO DAILY 08/01/21 02/20/22 History XL] amLODIPine [Norvasc] 5 mg PO DAILY 08/01/21 02/20/22 History lisinopriL 30 mg PO HS 08/01/21 02/20/22 History Ascorbic Acid [Vitamin C] 1,000 mg PO DAILY tab 08/03/21 02/20/22 Rx Cholecalciferol [Vitamin D3 (25 50 mcg PO DAILY tablet 08/03/21 02/20/22 Rx Mcg = 1000 Iu)] Zinc Sulfate [Orazinc] 220 mg PO DAILY cap 08/03/21 02/20/22 Rx Isosorbide Mononitrate ER [Imdur] 30 mg PO DAILY 02/18/22 02/18/22 History Lactulose 1 - 2 tbsp PO DIRECTED PRN 02/18/22 02/18/22 History Allergies Allergy/AdvReac Type Severity Reaction Status Date / Time No Known Allergies Allergy Verified 02/20/22 10:40 Physical Exam Vitals: Vital Signs Temp Pulse Resp BP Pulse Ox FiO2 02/27/22 09:14 96 90 02/27/22 09:00 101 H 28 H 154/81 96 02/27/22 08:00 97.2 F L 83 35 H 158/103 96 70 02/27/22 07:30 84 02/27/22 07:16 81 70 02/27/22 07:00 77 30 H 154/107 91 L 02/27/22 06:00 77 30 H 142/96 93 L 02/27/22 05:00 78 30 H 156/107 93 L 02/27/22 04:00 96.0 F L 80 28 H 153/104 92 L 70 02/27/22 03:39 70 02/27/22 03:00 79 28 H 157/88 94 L 02/27/22 02:00 82 34 H 122/86 93 L 02/27/22 01:00 89 30 H 155/115 92 L 02/27/22 00:28 70 02/27/22 00:00 97.8 F 77 27 H 124/85 93 L 02/26/22 23:41 60 02/26/22 23:02 84 25 H 162/96 90 L 02/26/22 23:00 85 30 H 163/103 89 L 02/26/22 22:00 111 H 34 H 139/97 92 L 02/26/22 21:00 97.8 F 86 33 H 168/106 93 L 60 02/26/22 20:31 83 02/26/22 20:19 79 02/26/22 20:17 60 02/26/22 20:00 97.1 F L 85 35 H 148/92 92 L 02/26/22 19:00 81 44 H 137/76 92 L 02/26/22 18:00 80 24 115/64 95 02/26/22 17:00 156 H 29 H 157/96 93 L 02/26/22 16:12 95 02/26/22 16:00 97.8 F 85 31 H 157/80 88 L 60 02/26/22 15:00 80 32 H 166/93 92 L 02/26/22 14:00 79 30 H 106/95 92 L 02/26/22 13:00 76 19 135/117 96 02/26/22 12:00 97.9 F 75 11 L 121/79 96 60 02/26/22 11:17 73 60 02/26/22 11:05 72 02/26/22 11:00 67 31 H 137/113 95 Intake and Output 02/26/22 02/27/22 02/27/22 22:59 06:59 14:59 Intake Total 115 250 Output Total 460 347 374 Balance -345 -296 -326 Intake: IV 115 100 0.9 Pressure bag 15 Dextrose 5% in Water 100 100 100 ml @ 618 mls/hr IV .Q10M PRN with Amiodarone 150 mg Rx#:[id number] Oral 150 Output: Urine 460 347 374 Other: Voiding Method Indwelling Catheter Indwelling Catheter Weight 114 kg 114 kg ABP, PAP, CO, CI - Last 8 Hours Cardiac Output 4 Cardiac Index 1.9 Skin: Atrophic, intact. General: Overweight build and comfortable appearance. Sitting in Mery chair. Oxygen and lines. Head: Normocephalic, atraumatic. Eyes: Symmetric. Pupils equal round. Ears: Symmetric. Hearing within normal limits. Mouth: Clear. Neck: Supple. Carotid without bruit. Cardiac: Sternal wound clean and dressed. Lungs: Clear anteriorly and posteriorly. Abdomen: Soft active nontender. Overweight. Extremities: Normal tone. Neurological: Mental status: Alert, cooperative, pleasant. Cranial nerves: Symmetric facial tone and trapezius. Motor: Normal strength and isolation all 4 limbs. Sensation: Intact throughout. DTRs: Symmetric and equal throughout. Mobility: Requires physical assist for bed mobility. Results CBC & Chem 7: 02/27/22 05:45 02/27/22 05:45 Labs: Abnormal Lab Results - Last 24 Hours (Table) 02/26/22 02/26/22 02/26/22 Range/Units 11:52 16:22 19:37 WBC (3.8-10.6) k/uL RBC (3.80-5.40) m/uL Hgb (11.4-16.0) gm/dL Hct (34.0-46.0) % Neutrophils # (1.3-7.7) k/uL Lymphocytes # (1.0-4.8) k/uL BUN (7-17) mg/dL Glucose (74-99) mg/dL POC Glucose (mg/dL) 120 H 170 H 111 H (70-110) mg/dL AST (14-36) U/L ALT (4-34) U/L Total Protein (6.3-8.2) g/dL 02/26/22 02/27/22 02/27/22 Range/Units 23:00 00:22 04:53 WBC (3.8-10.6) k/uL RBC (3.80-5.40) m/uL Hgb (11.4-16.0) gm/dL Hct (34.0-46.0) % Neutrophils # (1.3-7.7) k/uL Lymphocytes # (1.0-4.8) k/uL BUN (7-17) mg/dL Glucose (74-99) mg/dL POC Glucose (mg/dL) 169 H 137 H 134 H (70-110) mg/dL AST (14-36) U/L ALT (4-34) U/L Total Protein (6.3-8.2) g/dL 02/27/22 02/27/22 Range/Units 05:45 05:45 WBC 19.2 H (3.8-10.6) k/uL RBC 3.59 L (3.80-5.40) m/uL Hgb 10.8 L (11.4-16.0) gm/dL Hct 32.6 L (34.0-46.0) % Neutrophils # 17.2 H (1.3-7.7) k/uL Lymphocytes # 0.8 L (1.0-4.8) k/uL BUN 42 H (7-17) mg/dL Glucose 124 H (74-99) mg/dL POC Glucose (mg/dL) (70-110) mg/dL AST 103 H (14-36) U/L ALT 95 H (4-34) U/L Total Protein 5.9 L (6.3-8.2) g/dL Assessment and Plan Plan: Impression: Cardiac debility with recent CABG. Comments and plan: At this time PT and OT are prescribed. Therapies were unable to work with patient yesterday and most likely today as well. Have discussed case with cardiac surgeon. Plan to review a Wednesday and daily thereafter. Follow closely for possible need and benefit of inpatient rehab.
--- NOTE | 2022-02-27 10:26 | P.PN ---
Subjective Progress Note Date: 02/27/22 HISTORY OF PRESENT ILLNESS This is a pleasant 76 years old female with past medical history of Fibromyalg ia, Hyperlipidemia, Hypertension, Osteoarthritis , Supraventricular Tachycardia ,urinary incontinence-wears pad, severe left internal carotid artery stenosis followed by Dr. Fitzgerald, frequent constipation, she was admitted under cardiology service for right arm pain, chest pain and back pain for the last 3 weeks, where she underwent cardiac cath and showing critical and complex lesion involving the distal left main coronary arteries and also involving the ostial left circumflex and the distal LAD with the stenotic range is 80-90% with increase in LVEDP , Patient will need bypass procedure to open his coronary arteries. Currently she denies chest pain or dyspnea. No incontinence of urine or bowel. No fever Patient is hemodynamically stable Labs including CBC, INR, BMP and liver enzymes are unremarkable. TSH is 1.6. Urine analysis showing trace blood. coronavirus not detected. Hepatitis panel is negative Chest x-ray: Minimal interstitial edema noted Carotid duplex: No significant stenosis Echocardiogram showing ejection fraction of 50-55% with [id number] mitral regurgitation and mild tricuspid regurgitation Patient currently on heparin drip, aspirin 81 mg twice a day and normal saline at 75 mL/h as well as Lipitor and metoprolol However patient this morning she is asymptomatic she denies chest pain or dyspnea or abdominal pain. No diarrhea or vomiting or dysuria. No headache or weakness or numbness. 02/23: Patient is denying any chest pain, shortness of breath, palpitations, lightheadedness or dizziness. She is scheduled for CABG this afternoon and patient states that she is ready to move forward. No new concerns from her nurse. Patient has been afebrile, heart rate 80, blood pressure 129/78 and pulse ox 96% on room air. CBC is unremarkable. Chloride 110, CO2 20, blood sugar 112, creatinine 0.68. 02/24: Patient is status post CABG 2 with left internal mammary artery to the left anterior descending artery, reverse saphenous vein graft to the obtuse marginal artery, ligation of the left atrial appendage with a 40 mm AtriCure clip, endovascular vein harvest of the right greater saphenous vein, placement of intra-aortic balloon pump. Right groin intra-aortic balloon pump was discontinued this morning. Right internal jugular [place], right radial arterial line, mediastinal/left pleural chest tubes remain in place. Patient is stating that she is feeling well. She has been afebrile, heart rate 75, 121/54, pulse ox 93% on 2 L. Capillary blood glucose running between 110 and 120. WBC 9.7, hemoglobin 9.3 and platelet count 195. Electrolytes and renal function normal. AST 85 and ALT 41. 02/25: Patient remains in the intensive care unit. Yesterday pulse ox continued to drop through the day with increased oxygen demands to the point where she is now on BiPAP. She states she feels a little short of breath. She denies Chest pain. Temperature max 100.4, heart rate 76, respiratory rate 32, blood pressure 130/73. clinical research monitor sinus rhythm. Patient is status post IV Lasix yesterday with good urine output. Blood glucose running between 107 and 124 and insulin drip will be discontinued, transition to NovoLog scale every 4 hours. Urinalysis was turbid, blood small. 02/26: Patient remains in the intensive care unit on BiPAP. She has been unable to eat only taking a few sips of water. Chest tubes have been removed, pacer wires to be removed today. Boss catheter is in place, good urine output. Patient has been afebrile, heart rate in the 80s, blood pressure 144/76, pulse ox 90% on FiO2 80 BiPAP. clinical research monitor is sinus rhythm. Repeat blood work reveals WBC 19.9, hemoglobin 10.2, platelet count 266. Sodium 135, BUN 30 creatinine 0.67. AST 83 and ALT 60. Blood sugars running between 123 and 160. Chest x-ray reveals stable. Persistent perihilar and basilar patchy densities bilateral small effusions. Chest ultrasound reveals right pleural effusion 4.9 cm 2.2 cm fluid pocket. 02/27: Patient remains in intensive care unit. She has just been transitioned to AirVo and off BiPAP which she utilized during the night and all day yesterday. Patient converted to atrial fibrillation when we walked into the room. Boss remains in place. We have added in a consult for Dr. Stephenson in anticipation the patient will be ready for discharge to a week. She has been afebrile, heart r ate 101, respiratory rate 28, blood pressure 154/81, pulse ox 96% FiO2 of 90. Repeat blood work reveals WBC 19.2, hemoglobin 10.8 and platelet count 375. Electrolytes are normal. Creatinine 0.69. AST is 103 and ALT 95. Coronavirus PCR not detected. Patient has been started on cefepime and IV vancomycin prophylactically per pulmonary recommendations. Pro-calcitonin has been ordered Patient is continued on IV Lasix. REVIEW OF SYSTEMS Constitutional: No fever, no chills, no night sweats. No weight change. Noted weakness, fatigue no lethargy. No daytime sleepiness. EENT: No headache. No blurred vision or double vision, no loss of vision. No loss of Hearing, no ringing in the ears, no dizziness. No nasal drainage or congestion. No epistaxis. No sore throat. Lungs: Minimal shortness of breath, cough, no sputum production. No wheezing. Cardiovascular: Denies chest pain, no lower extremity edema. No palpitations. No paroxysmal nocturnal dyspnea. No orthopnea. No lightheadedness or dizziness. No syncopal episodes. Abdominal: No abdominal pain. No nausea, vomiting. No diarrhea. No constipation. No bloody or tarry stools. No loss of appetite. Genitourinary: No dysuria, increased frequency, urgency. No urinary retention. Musculoskeletal: No myalgias. No muscle weakness, no gait dysfunction, no frequent falls. No back pain. No neck pain. Integumentary: No wounds, no lesions. No rash or pruritus. No unusual bruising. No change in hair or nails. Neurologic: No aphasia. No facial droop. No change in mentation. No head injury. No headache. No paralysis. No paresthesia. Psychiatric: No depression. No anxiety. No mood swings. Endocrine: No abnormal blood sugars. No weight change. No excessive sweating or thirst. PHYSICAL EXAMINATION Gen: This is a 76-year-old overweight female. She is resting in bed and appears to be comfortable and in no acute distress. HEENT: Head is atraumatic, normocephalic. Pupils equal, round. Sclerae is anic teric. NECK: Supple. No JVD. No lymphadenopathy. No thyromegaly. LUNGS: Clear to auscultation. No wheezes or rhonchi. No intercostal retractions. HEART: Regular rate and rhythm. Systolic murmur. ABDOMEN: Soft. Bowel sounds are present. No masses. No tenderness. Boss catheter draining cora urine EXTREMITIES: No pedal edema. No calf tenderness. NEUROLOGICAL: Patient is awake, alert and oriented x3. Cranial nerves 2 through 12 are grossly intact. ASSESSMENT AND PLAN 1. Severe coronary artery disease status post 2 vessel CABG 02/23. Continue current plan per cardiothoracic team. Continue aspirin 325 mg daily, Lipitor 80 mg daily, Plavix 75 mg daily, continue [place] as needed for pain, DuoNeb treatments 4 times daily and as needed, Lopressor increased to 50 mg twice daily. Patient is also been started on cefepime and IV vancomycin, prednisone 40 mg daily. Pro-calcitonin pending. 2. Acute hypoxic respiratory failure. Patient has been on BiPAP, transition to AirVo on 02/27. 3. Worsening bilateral lung infiltrates and small right pleural effusion. Patient has been started on cefepime and IV vancomycin, pro-calcitonin, Lasix 20 g IV every 12 hours. 4. Hypertension. Patient started on lisinopril 5 mg daily, continue Lopressor, hydralazine as needed, Lasix every 12 hours IV 20 mg 5. Hyperlipidemia. Continue atorvastatin. 6. Carotid artery disease. Continue aspirin, atorvastatin. 7. Hyperglycemia. Continue patient on NovoLog scale every 4 hours. 8. New onset paroxysmal atrial fibrillation. Lopressor was increased to 50 mg twice daily. 9. GI prophylaxis. Protonix 40 mg daily 10. DVT prophylaxis. Heparin subcu. DISCHARGE PLAN Most likely a good candidate for inpatient rehab. Consult with Dr. Stephenson. Impression and plan of care have been directed as dictated by the signing physician. Elif Maharaj nurse practitioner acting as scribe for signing physician. Objective - Vital Signs Vital signs: Vital Signs Temp 97.2 F L 02/27/22 08:00 Pulse 83 02/27/22 08:00 Resp 35 H 02/27/22 08:00 BP 158/103 02/27/22 08:00 Pulse Ox 96 02/27/22 08:00 FiO2 70 02/27/22 08:00 Intake & Output 02/26/22 02/27/22 02/27/22 18:59 06:59 18:59 Intake Total 159 100 150 Output Total 835 647 74 Balance -446 -867 76 Weight 114 kg Intake: IV 159 100 0.9 Pressure bag 39 Dextrose 5% in Water 100 100 ml @ 618 mls/hr IV .Q10M PRN with Amiodarone 150 mg Rx#:[id number] Lactated Ringers 1,000 ml 120 @ 20 mls/hr IV .Q24H [facility] Rx#:[id number] Oral 150 Output: Urine 835 647 74 Other: Voiding Method Indwelling Catheter Indwelling Catheter ABP, PAP, CO, CI - Last Documented Arterial Blood Pressure 281/281 Pulmonary Artery Pressure 43/24 Cardiac Output 4 Cardiac Index 1.9 - Labs CBC & Chem 7: 02/27/22 05:45 02/27/22 05:45 Labs: Abnormal Lab Results - Last 24 Hours (Table) 02/26/22 02/26/22 02/26/22 Range/Units 11:52 16:22 19:37 WBC (3.8-10.6) k/uL RBC (3.80-5.40) m/uL Hgb (11.4-16.0) gm/dL Hct (34.0-46.0) % Neutrophils # (1.3-7.7) k/uL Lymphocytes # (1.0-4.8) k/uL BUN (7-17) mg/dL Glucose (74-99) mg/dL POC Glucose (mg/dL) 120 H 170 H 111 H (70-110) mg/dL AST (14-36) U/L ALT (4-34) U/L Total Protein (6.3-8.2) g/dL 02/26/22 02/27/22 02/27/22 Range/Units 23:00 00:22 04:53 WBC (3.8-10.6) k/uL RBC (3.80-5.40) m/uL Hgb (11.4-16.0) gm/dL Hct (34.0-46.0) % Neutrophils # (1.3-7.7) k/uL Lymphocytes # (1.0-4.8) k/uL BUN (7-17) mg/dL Glucose (74-99) mg/dL POC Glucose (mg/dL) 169 H 137 H 134 H (70-110) mg/dL AST (14-36) U/L ALT (4-34) U/L Total Protein (6.3-8.2) g/dL 02/27/22 02/27/22 Range/Units 05:45 05:45 WBC 19.2 H (3.8-10.6) k/uL RBC 3.59 L (3.80-5.40) m/uL Hgb 10.8 L (11.4-16.0) gm/dL Hct 32.6 L (34.0-46.0) % Neutrophils # 17.2 H (1.3-7.7) k/uL Lymphocytes # 0.8 L (1.0-4.8) k/uL BUN 42 H (7-17) mg/dL Glucose 124 H (74-99) mg/dL POC Glucose (mg/dL) (70-110) mg/dL AST 103 H (14-36) U/L ALT 95 H (4-34) U/L Total Protein 5.9 L (6.3-8.2) g/dL
[2022-02-27] MEDS ORDERED: VANCOMYCIN 2,500 MG in SODIUM CHLORIDE 0.9% 500 ML 500 ML IVPB ONE (10:30)
[2022-02-27] MEDS: predniSONE 20 MG TAB PO SCH (10:33)
[2022-02-27 12:47] LABS: Glucose,Whole Blood 123 mg/dL (70-110)
[2022-02-27] MEDS: CEFEPIME 2 GM in SODIUM CHLORIDE 0.9% 100 ML IVPB SCH ×2 (15:10→23:53)
[2022-02-27 16:37] LABS: Glucose,Whole Blood 132 mg/dL (70-110)
[2022-02-27] MEDS: LACTATED RINGERS 1,000 ML IV SCH (16:45)
[2022-02-27 19:54] LABS: Glucose,Whole Blood 150 mg/dL (70-110)
[2022-02-27] MEDS: SENNOSIDES-DOCUSATE SODIUM 1 EACH TAB PO SCH (20:02)
[2022-02-27] MEDS: VANCOMYCIN 2,000 MG in SODIUM CHLORIDE 0.9% 500 ML 500 ML IVPB SCH (22:11)
[2022-02-27 23:37] LABS: Glucose,Whole Blood 133 mg/dL (70-110)
[2022-02-28 04:30] LABS: Glucose,Whole Blood 126 mg/dL (70-110)
[2022-02-28] MEDS: INSULIN ASPART (NovoLOG) 100 UNIT/ML VIAL SQ SCH ×6 (04:33→23:53)
[2022-02-28] MEDS: hydrALAZINE HCL 20 MG/ML 1 ML VIAL IVP PRN ×2 (04:43→06:26)
[2022-02-28] MEDS: PANTOPRAZOLE 40 MG TABLET PO SCH (06:34)
--- NOTE | 2022-02-28 07:15 | P.PN ---
Subjective Progress Note Date: 02/28/22 PROGRESS NOTE The patient is a 76-year-old female with history of carotid vascular disease who presented with symptoms of progressive chest discomfort and an abnormal MPI. Underwent cardiac catheterization on the and was found to have severe distal left main disease with [id number]-flpeqtfa disease in the RCA. She is scheduled to undergo CABG today. Her echo showed an ejection fraction of 50% with mild lateral wall hypokinesis and esep-hj-dvjllefo mitral regurgitation. She's feeling well this morning, denies any chest discomfort or dizziness. She is in sinus mechanism. Scheduled to undergo CABG this afternoon. She continues to be on aspirin, Lipitor 80 mg daily, isosorbide mononitrate 15 mg daily, lisinopril 30 mg daily, metoprolol succinate 25 mg daily February 24: The patient underwent off-pump CABG yesterday with RAMOS to the LAD and SVG to the OM with ligation of the left atrial appendage and placement of intra-aortic balloon pump because of worsening ischemia at the start of surgery. She had atrial arrhythmia requiring cardioversion earlier. She is extubated, in sinus mechanism, intra-aortic balloon pump at 1:2 with good blood pressure and urinary output. She is on no vasopressor. She is awake, alert and following commands. At the end of the procedure she had a good ejection fraction with mild mitral regurgitation. She continues to be on aspirin, Lipitor 80 mg daily, Plavix 75 mg daily, metoprolol tartrate 12-1/2 mg twice a day. February 25: The patient intra-aortic balloon pump was removed yesterday. She was hypoxemic during the night requiring BiPAP. She denies any chest discomfort. She continues to be in sinus mechanism. She denies any chest discomfort, dizziness or palpitations. She received diuretics yesterday with good output. She continues to be on aspirin, Plavix, low-dose dopamine, metoprolol 12-1/2 mg twice a day, Lipitor 80 mg daily. Her chest x-ray shows bilateral pleural effusion February 26: The patient is awake and alert, continues to be in sinus mechanism, she continues to be on the BiPAP but feels better. Her breathing is stable. She is denying any chest discomfort, dizziness or palpitations. She has no nausea. She has good urinary output. She continues to be on aspirin once a day, amiodarone 400 mg twice a day, Lipitor 80 mg daily, Plavix 75 mg daily, insulin, metoprolol tartrate 25 mg twice a day. Her chest x-ray shows bilateral pleural effusion with mild congestion, she diuresed well yesterday the IV Lasix February 27: The patient continues to be on a BiPAP, hypoxic off of it. She had an episode of atrial fibrillation back in sinus mechanism to be on amiodarone. Her blood pressure is stable and has not required a suppressive. She denies any chest discomfort but she is dyspneic. She has no nausea or vomiting. Her urinary output has been stable. Her chest x-ray shows worsening infiltrate bilaterally. She continues to be on amiodarone 400 mg twice a day, aspirin, Lipitor 80 mg daily, Plavix 75 mg daily, Lasix 20 mg IV every 12 hours, metoprolol tartrate 25 mg 3 times a day February 28: She's feeling better today, sitting up in the chair, she continues to be on high flow during the day but BiPAP during the night. Her blood pressure has been on the higher side. She denies any chest discomfort, dizziness or palpitations. Hemodynamically she is stable, in sinus mechanism. She has a good urinary output. She continues to be on aspirin once a day, Lipitor 80 mg daily, Plavix 75 mg daily, insulin, Zestril 5 mg daily, metoprolol 50 mg twice a day PHYSICAL EXAMINATION: Blood pressure 158/80 with a heart rate in the 80s LUNGS: Decreased breath sounds at the bases HEART: Regular rate and rhythm, S1, S2. No S3. systolic murmur at the base ABDOMEN: Soft, nontender, no organomegaly EXTREMETIES: No edema, LAB: Pending IMPRESSION: 1. Status post CABG, RAMOS to the LAD and SVG to obtuse marginal branch with known severe left main disease. 2. Post removal of Intra-aortic balloon pump 3. History of hyperlipidemia 4. Hypoxemia with lung congestion, probable lung injury post CABG 5. Hypertension PLAN: 1. IV diuretics as needed 2. Follow blood pressure and increase TASHI inhibitor 3. Wean high flow as tolerated 4. Continue incentive spirometry 5. Increase activity as tolerated. 6. Follow renal functions Objective - Vital Signs Vital signs: Vital Signs Temp 97.6 F 02/28/22 04:00 Pulse 80 02/28/22 07:00 Resp 28 H 02/28/22 07:00 BP 158/82 02/28/22 07:00 Pulse Ox 97 02/28/22 07:00 FiO2 90 02/28/22 06:00 Intake & Output 02/27/22 02/28/22 02/28/22 18:59 06:59 18:59 Intake Total 1200 1140 Output Total 919 510 35 Balance 281 630 -35 Weight 114 kg 108.9 kg Intake: IV 100 600 Cefepime 2 gm In Sodium 100 Chloride 0.9% 100 ml @ 200 mls/hr IVPB ONCE STA Rx#:[id number] Dextrose 5% in Water 100 100 ml @ 618 mls/hr IV .Q10M PRN with Amiodarone 150 mg Rx#:[id number] Vancomycin 2,000 mg In 500 Sodium Chloride 0.9% 500 ml 500 ml @ 167 mls/hr IVPB Q12H [facility] Rx#: [id number] Intake, IV Titration 700 Amount Cefepime 2 gm In Sodium 200 Chloride 0.9% 100 ml @ 200 mls/hr IVPB ONCE STA Rx#:[id number] Vancomycin 2,500 mg In 500 Sodium Chloride 0.9% 500 ml 500 ml @ 167 mls/hr IVPB ONCE ONE Rx#: [id number] Oral 400 540 Output: Urine 919 510 35 Other: Voiding Method Indwelling Catheter ABP, PAP, CO, CI - Last Documented Arterial Blood Pressure 281/281 Pulmonary Artery Pressure 43/24 Cardiac Output 4 Cardiac Index 1.9 - Labs CBC & Chem 7: 02/27/22 05:45 02/27/22 05:45 Labs: Abnormal Lab Results - Last 24 Hours (Table) 02/27/22 02/27/22 02/27/22 Range/Units 05:45 12:46 16:35 POC Glucose (mg/dL) 123 H 132 H (70-110) mg/dL Procalcitonin 0.33 H (0.02-0.09) ng/mL 02/27/22 02/27/22 02/28/22 Range/Units 19:52 23:36 04:27 POC Glucose (mg/dL) 150 H 133 H 126 H (70-110) mg/dL Procalcitonin (0.02-0.09) ng/mL
--- NOTE | 2022-02-28 07:15 | XR ---
EXAMINATION TYPE: XR chest 1V portable DATE OF EXAM: 02/28/2022 5:10 AM COMPARISON: Chest radiograph from one day prior. TECHNIQUE: XR chest 1V portable Portable AP radiograph of the chest.. CLINICAL INDICATION:Female, 76 years old with history of Postoperative CABG; FINDINGS: Lungs/Pleura: Scattered airspace opacities are no significant change from prior. Blunting of the righ t costophrenic angle is unchanged. There is no evidence of focal consolidation, or pneumothorax. Pulmonary vascularity: Unremarkable. Heart/mediastinum: Cardiomediastinal silhouette is unremarkable. Left atrial appendage occlusion williams maryellen present. Musculoskeletal: No acute osseous pathology. Midline sternotomy wires are noted and stable. IMPRESSION: 1. Similar airspace opacities and right pleural effusion. 2. Similar cardiomegaly.
[2022-02-28 07:29] LABS: ALT 95 U/L (4-34); AST 84 U/L (14-36); African American GFR (CKD) >90 (>60 ml/min/1.73 sqM); Albumin 3.7 g/dL (3.5-5.0); Alkaline Phosphatase 198 U/L (38-126); Anion Gap 15 mmol/L; Blood Urea Nitrogen 51 mg/dL (7-17); Calcium 8.6 mg/dL (8.4-10.2); Carbon Dioxide 19 mmol/L (22-30); Chloride 106 mmol/L (98-107); Glucose 122 mg/dL (74-99); Non-African American GFR(CKD) 86 (>60 ml/min/1.73 sqM); Sodium 140 mmol/L (137-145); Total Bilirubin 1.1 mg/dL (0.2-1.3); Total Protein 6.2 g/dL (6.3-8.2)
[2022-02-28] MEDS: IPRATROPIUM-ALBUTEROL 3 ML NEB INHALATION SCH ×4 (07:29→19:37)
[2022-02-28 07:33] LABS: Basophils # (A) 0.1 k/uL (0-0.2); Basophils % (A) 0 %; Eosinophils % (A) 0 %; HGB 10.5 gm/dL (11.4-16.0); Hypochromasia Moderate; Lymphocytes # (A) 0.7 k/uL (1.0-4.8); Lymphocytes % (A) 4 %; MCH 29.4 pg (25.0-35.0); MCHC 30.9 g/dL (31.0-37.0); MCV 95.2 fL (80.0-100.0); Mean Platelet Volume 8.1; Monocytes # (A) 1.1 k/uL (0-1.0); Monocytes % (A) 7 %; Neutrophils # (A) 14.8 k/uL (1.3-7.7); Neutrophils % (A) 87 %; Platelet Count 354 k/uL (150-450); RBC 3.57 m/uL (3.80-5.40); RDW 14.9 % (11.5-15.5)
[2022-02-28] MEDS: MAGNESIUM HYDROXIDE 2,400 MG/10 ML CUP PO PRN (07:57)
[2022-02-28] MEDS: HEPARIN SODIUM,PORCINE/PF 5,000 UNIT/0.5 ML SYRINGE SQ SCH ×3 (07:57→23:55)
[2022-02-28] MEDS: predniSONE 20 MG TAB PO SCH (07:57)
[2022-02-28] MEDS: ASPIRIN 325 MG TAB PO SCH (07:57)
[2022-02-28] MEDS: MUPIROCIN 2% OINT 22 GM TUBE NASAL SCH ×2 (07:58→20:58)
[2022-02-28] MEDS: lisinopriL 10 MG TAB PO SCH ×2 (07:58→20:56)
[2022-02-28] MEDS: CEFEPIME 2 GM in SODIUM CHLORIDE 0.9% 100 ML IVPB SCH ×2 (07:58→16:50)
[2022-02-28] MEDS: METOPROLOL TARTRATE 50 MG TAB PO SCH ×2 (07:58→20:56)
[2022-02-28] MEDS: ATORVASTATIN 80 MG TAB PO SCH (07:58)
[2022-02-28] MEDS: CLOPIDOGREL 75 MG TAB PO SCH (07:58)
[2022-02-28 08:10] LABS: Glucose,Whole Blood 141 mg/dL (70-110)
--- NOTE | 2022-02-28 08:16 | P.PN ---
Subjective Progress Note Date: 02/28/22 Principal diagnosis: Coronary artery disease with left main disease, unstable angina, atrial arrhythmias. Past medical history significant for hypertension, hyperlipidemia, SVT, left internal carotid artery stenosis, obesity, lifetime nonsmoker, remains unvaccinated against Covid, and family history of coronary artery disease. POD #5 off-pump coronary artery bypass grafting 2 with left internal mammary artery to the left anterior descending coronary artery, reverse saphenous vein graft to the obtuse marginal coronary artery, ligation of the left atrial appendage with a 40 mm AtriCure clip, endovascular vein harvest of the right greater saphenous vein, placement of intra-aortic balloon pump. Postoperative acute blood loss anemia, expected given hemodilution. Acute hypoxic respiratory failure requiring bipap. The patient was seen and examined in follow-up today 02/28/2022 at her bedside in the intensive care unit. The patient is sitting up to the bedside chair, is awake, alert, oriented 3 and is in no acute distress. Denies any complaints of shortness of breath with sitting, although reports she does get short of breath with some activity. Denies any complaints of pain at this time. Oxygen saturation are 96% with AIRVO support 60 L/m and 90% FiO2, and she used BiPAP throughout the night. She is achieving 750 mL on her incentive spirometry with encouragement. Bedside telemetry showing normal sinus rhythm heart rate 79 BPM. The patient has had some hypertension throughout the night and cardiology has adjusted her lisinopril. She is tolerating oral intake. Denies any nausea, although is complaining of some constipation and reports she has not had a bowel movement since last Wednesday. Her night nurse reports that she did well with getting up to the chair with good strength and standby assistance. Laboratory results this morning show a WBC count trending down at 17.0, hemoglobin 10.5, hematocrit 34.0, platelets 354, sodium 140, potassium 4.0, CO2 19, BUN 51, creatinine 0.67, glucose 122, AST 84, and ALT 95. Amiodarone has been discont inued. Boss cath remains for accurate I&O, urine output in the last 8 hours is 335 mL. The patient reports that she feels slightly improved today. She remains hemodynamically stable and is currently on no inotropic pressor support. She remains afebrile over the last 24 hours. She was started on cefepime and vancomycin for empiric antibiotic coverage yesterday per pulmonary/critical care recommendations. She was also started on prednisone 40 mg by mouth daily yesterday. COVID-19 PCR was negative. Objective - Vital Signs Vital signs: Vital Signs Temp 97.6 F 02/28/22 04:00 Pulse 78 02/28/22 07:42 Resp 28 H 02/28/22 07:00 BP 158/82 02/28/22 07:00 Pulse Ox 97 02/28/22 07:29 FiO2 94 02/28/22 07:29 Intake & Output 02/27/22 02/28/22 02/28/22 18:59 06:59 18:59 Intake Total 1200 1140 Output Total 919 510 35 Balance 281 630 -35 Weight 114 kg 108.9 kg Intake: IV 100 600 Cefepime 2 gm In Sodium 100 Chloride 0.9% 100 ml @ 200 mls/hr IVPB ONCE STA Rx#:[id number] Dextrose 5% in Water 100 100 ml @ 618 mls/hr IV .Q10M PRN with Amiodarone 150 mg Rx#:[id number] Vancomycin 2,000 mg In 500 Sodium Chloride 0.9% 500 ml 500 ml @ 167 mls/hr IVPB Q12H [facility] Rx#: [id number] Intake, IV Titration 700 Amount Cefepime 2 gm In Sodium 200 Chloride 0.9% 100 ml @ 200 mls/hr IVPB ONCE STA Rx#:[id number] Vancomycin 2,500 mg In 500 Sodium Chloride 0.9% 500 ml 500 ml @ 167 mls/hr IVPB ONCE ONE Rx#: [id number] Oral 400 540 Output: Urine 919 510 35 Other: Voiding Method Indwelling Catheter ABP, PAP, CO, CI - Last Documented Arterial Blood Pressure 281/281 Pulmonary Artery Pressure 43/24 Cardiac Output 4 Cardiac Index 1.9 - Exam CONSTITUTIONAL: Currently sitting up to the bedside chair in the intensive care unit. Appears comfortable, cooperative, no acute distress. RESPIRATORY: Lungs sounds diminished bilaterally, right greater than left. Respirations are symmetrical and nonlabored. Currently on AIRVO, FiO2 90%, 60 L/m with oxygen saturation 96%. Strong nonproductive cough. Achieving 750 mL on her incentive spirometry with encouragement. CARDIOVASCULAR: S1, S2 present. Regular rate and rhythm, sinus rhythm on telemetry. Sternum stable. Palpable peripheral pulses bilaterally. Trace generalized edema present. No calf pain or tenderness noted. Heart hugger in place with patient demonstrating appropriate use. Antiembolism stockings, SCDs present. GASTROINTESTINAL: Abdomen soft, nontender, nondistended. Active bowel sounds present 4 quadrants. Tolerating diet. Passing flatus. GENITOURINARY: Boss catheter present draining cloudy, yellow urine. Urine output 335 mL in the last 8 hours. INTEGUMENTARY: Skin is warm and dry with evidence of good perfusion. Midline sternal incision is well approximated and covered with dry intact dressing. Right lower extremity EVH site well approximated without redness or drainage. NEUROLOGIC: Cranial nerves II through XII intact. No focal deficits. MUSKULOSKELETAL: Able to move all extremities, strength equal bilaterally. PSYCHIATRIC: Alert and oriented to person place and time, appropriate affect, intact judgment and insight. - Allied health notes Allied health notes reviewed: nursing - Labs CBC & Chem 7: 02/28/22 07:03 02/28/22 07:03 Labs: Abnormal Lab Results - Last 24 Hours (Table) 02/27/22 02/27/22 02/27/22 Range/Units 05:45 12:46 16:35 WBC (3.8-10.6) k/uL RBC (3.80-5.40) m/uL Hgb (11.4-16.0) gm/dL MCHC (31.0-37.0) g/dL Neutrophils # (1.3-7.7) k/uL Lymphocytes # (1.0-4.8) k/uL Monocytes # (0-1.0) k/uL Carbon Dioxide (22-30) mmol/L BUN (7-17) mg/dL Glucose (74-99) mg/dL POC Glucose (mg/dL) 123 H 132 H (70-110) mg/dL AST (14-36) U/L ALT (4-34) U/L Alkaline Phosphatase (38-126) U/L Total Protein (6.3-8.2) g/dL Procalcitonin 0.33 H (0.02-0.09) ng/mL 02/27/22 02/27/22 02/28/22 Range/Units 19:52 23:36 04:27 WBC (3.8-10.6) k/uL RBC (3.80-5.40) m/uL Hgb (11.4-16.0) gm/dL MCHC (31.0-37.0) g/dL Neutrophils # (1.3-7.7) k/uL Lymphocytes # (1.0-4.8) k/uL Monocytes # (0-1.0) k/uL Carbon Dioxide (22-30) mmol/L BUN (7-17) mg/dL Glucose (74-99) mg/dL POC Glucose (mg/dL) 150 H 133 H 126 H (70-110) mg/dL AST (14-36) U/L ALT (4-34) U/L Alkaline Phosphatase (38-126) U/L Total Protein (6.3-8.2) g/dL Procalcitonin (0.02-0.09) ng/mL 02/28/22 02/28/22 Range/Units 07:03 07:03 WBC 17.0 H (3.8-10.6) k/uL RBC 3.57 L (3.80-5.40) m/uL Hgb 10.5 L (11.4-16.0) gm/dL MCHC 30.9 L (31.0-37.0) g/dL Neutrophils # 14.8 H (1.3-7.7) k/uL Lymphocytes # 0.7 L (1.0-4.8) k/uL Monocytes # 1.1 H (0-1.0) k/uL Carbon Dioxide 19 L (22-30) mmol/L BUN 51 H (7-17) mg/dL Glucose 122 H (74-99) mg/dL POC Glucose (mg/dL) (70-110) mg/dL AST 84 H (14-36) U/L ALT 95 H (4-34) U/L Alkaline Phosphatase 198 H (38-126) U/L Total Protein 6.2 L (6.3-8.2) g/dL Procalcitonin (0.02-0.09) ng/mL - Imaging and Cardiology Chest x-ray: report reviewed, image reviewed Assessment and Plan Assessment: 1. Coronary artery disease with left main disease, status post 2 vessel CABG 2. Hypertension 3. Hyperlipidemia, cholesterol 182, LDL 122 4. SVT, intraoperative atrial arrhythmias with cardioversion, status post left atrial appendage ligation 5. Left internal carotid artery stenosis 6. Obesity 7. Never smoker, preoperative FEV1 72% of predicted 8. History of covid infection in July 2021, remains unvaccinated against Covid, negative COVID-19 PCR 9. Family history of coronary artery disease 10. Nasal swab positive for MSSA, treated with mupirocin 11. Preserved LV function with mild to moderate mitral regurgitation on transthoracic echocardiogram 12. Acute blood loss anemia 13. Acute hypoxic respiratory failure requiring bipap 14. Leukocytosis with low grade fever, urine culture sent Plan: 1. Continue to maximize medical management with aspirin, Plavix, statin, beta ena and TASHI inhibitor. Will increase metoprolol tartrate as tolerated. 2. Continue to hold amiodarone, due to her respiratory status. No anticoagulation necessary at this point. 3. Wean O2 as tolerated. Encourage incentive spirometry 10 times every hour while awake. Bronchodilators per pulmonology. 4. Increase activity as tolerated. PT/OT/cardiac rehab following. 5. GI/DVT prophylaxis. 6. Will monitor daily labs and chest x-ray. Electrolyte replacement per protocol. 7. Pain control with current medication regimen. 8. Insulin management per primary care service. Patient is not diabetic, preoperative hemoglobin A1c 5.6%. 9. Remove Boss catheter, continue to record strict accurate intake and output. May bladder scan every 6 hours and when necessary postvoid residual. If greater than 300 mL of urine may straight cath. Daily weights. 10. Continue cefepime 2 g IV piggyback every 8 hours and vancomycin pharmacy to dose per pulmonary/critical care medicine recommendations. 11. Continue Prednisone 40 mg by mouth daily per pulmonary/critical care medicine recommendations. 12. Lisinopril adjusted by cardiology to 10 mg by mouth twice a day. 13. Dulcolax suppository 1 now. 14. Lasix has been discontinued yesterday. Continue to hold diuretics. 15. Encourage nutrition and advance diet as tolerated. 16. More recommendations to follow based on patient's clinical course Time with Patient: Greater than 30
--- NOTE | 2022-02-28 08:42 | P.PN ---
Subjective Progress Note Date: 02/28/22 This is a patient who had a recent heart catheterization, showing a critical and complex lesion involving the distal left main coronary artery, also, the ostial left circumflex, and ostial LAD. The lesions appear to be in the range of 80- 90%, and the patient was also noted to have elevated left ventricular end- diastolic filling pressures. The patient is currently being evaluated by cardiothoracic surgery for possible bypass grafting. We will reassess to see the patient preoperatively, and evaluate her lung function. The patient is a lifelong nonsmoker. She has no history of lung disease. Based on her FEV1, and her MVV, she was in the low operative risk range. Outpatient medications includ ed amlodipine, aspirin, metoprolol, lisinopril, zinc, vitamin D3, ascorbic acid, lactulose, and indoor. Her only major medical problem is hypertension. She does have a history of previous coronavirus infection and was seen by my partner in July 2021. CBC is completely normal. PTT is 39.7. Sodium 141, potassium 3.7, chlorides 111, CO2 24, BUN 12, creatinine 0.63. Cholesterol was 182. Urine was negative. Testing for coronavirus was negative. Chest x-ray shows mild interstitial edema. Currently she is on room air. Progress note dated 02/22/2022. 76-year-old female we saw yesterday in consultation. The patient has significant coronary disease, involving the left main coronary artery. The patient is apparently going to have open heart surgery one day this week. The exact day has not been decided yet. Clinically, she's. Stable. She is on room air. She is a lifelong nonsmoker. Lung function would suggest that she's at a very low increased operative risk based on her FEV1 and MVV. Labs today show white count of 6.1, with a normal hemoglobin, hematocrit, and platelet count. The patient's PTT is 60.2. Sodium 141, potassium 3.6, chlorides 111, CO2 24, BUN 12, creatinine 0.72. 02/23/2022, the patient is awaiting bypass surgery. The patient is calm and comfortable. No respiratory difficulties whatsoever. She is using incentive spirometer. Her preop FEV1 is order of 72% of predicted. No angina. No palpitations. No chest pain. She is hemodynamically stable at this point in time. She remains on IV heparin. I did introduce myself and I will take care o f this patient postop, managed to ventilator and the necessity pulmonary care following her thoracotomy bypass surgery.no other active issues for now. The patient was sent comes at 6.2 with a hemoglobin 4.5. She is on IV heparin with a PTT of 55. BUN is at 12 with a creatinine 0.6 and the sodium level is at 140. 02/24/2022, I'm seeing the patient for a follow-up. The patient was taken to the operating room yesterday and the patient underwent an off-pump coronary artery bypass surgery with RAMOS to LAD and saphenous vein graft to obtuse marginal. The patient also had a left facial appendage clipping. Estimated blood loss was 400 mL. The patient received a total of 3 L of intraoperative IV fluids. Note that the patient was having issues with hypotension and there was some interval worsening of the mitral regurgitation intraoperatively. At that point, it was decided to insert an intra-aortic balloon pump and this was done through the right common femoral artery. Once the intra-aortic balloon pump was initiated, the patient's hemodynamics improved dramatically. The patient was given a postop echo cardiac exam that showed a mild MR and good ejection fraction. The intra-aortic balloon pump was placed on a one-to-one augmentation and following that the patient was brought into the intensive care unit. The patient subsequently was weaned off the sedation and the patient was extubated without any major difficulties within a few hours. The patient was extubated and the fourth hours after arriving to the ICU. The patient had with good weaning parameters. The patient had a blood gas that showed adequate oxygenation and ventilation. Based on that, the patient was extubated. This morning, the patient remains on oxygen at 6 L per minute nasal cannula. The chest x-ray showing cardiomegaly. The patient is a mediastinal and left pleural chest tube. Output from the chest tubes have been 250 mL from the mediastinum and 280 from the left pleural since surgery. No evidence of any air leak. The chest x-ray shows no evidence of any pneumothorax. Hemodynamically, the patient is currently receiving intra-aortic balloon pump augmentation of 1-2. The patient has adequate cardiac output of 4.3 and an index of 2. She is on no pressors for now. The intra-aortic balloon pump will be removed for now. The patient is stable to systemic adequate blood pressure was the patient being off the balloon pump. Urine output is in order of 20 mL an hour. The patient is a febrile. The patient is awake and following commands thoracic questions appropriately. Pulmonary artery pressures are 38 over 18 mmHg. Lower blood work from work today is showing a sodium of 139, potassium of 4, bicarb of 26, BUN of 14 with a creatinine of 0.6. The white cell count is at 9.7 with a hemoglobin of 9.3 and a platelet count of 195. AST is 85 with an ALT of 60 and alkaline phosphatase of 41. Magnesium level is at 2.1. Note that the patient had a run of atrial fibrillation intraoperatively. The patient was loaded with amiodarone and currently the patient is on 0.5 mg per minute of amiodarone infusion. The patient is in a normal sinus rhythm. The patient is also on an insulin drip running at 2.5 units an hour with adequate blood sugar control. The patient's of lactated Ringer at the rate of 50 mL an hour. As mentioned, awake and alert and the sternum is dry clean and intact. No other issues otherwise for now. Breaks 02/25/2022, I'm seeing the patient for a follow-up. The patient is postop day #2. Note that this patient was extubated successfully without any issues. Subsequently, as of yesterday afternoon, the patient became progressively more hypoxic. Note that during the day, the patient was given IV albumin a total of 750 mL to improve her urine output. This did help and ultimately dopamine was added at renal dose to improve her urine output. Subsequently, she became more hypoxic and the patient became more short of breath and initially she went up to 15 L high flow and later on the patient was placed on a BiPAP. She was kept on BiPAP throughout the night and the patient is currently on a BiPAP at a pressure of 12/5 cm of water and FiO2 of on the percent. She is able to generate tidal volumes above 500. Respiratory rate is in the mid 20s. Her breathing is slightly labored even on the BiPAP, yet she is able to tolerate the machine w ithout any major difficulties and she is awake and alert and she is following commands and answering questions and she is neurologically intact. At the same time, the patient had a blood. This morning that showed a pH of 7.97.49 with a pCO2 of 35 and a pO2 of 55 and this was on FiO2 of 85% and based on that the FiO2 was brought up to 100%. The chest x-ray showing cardiomegaly. There is some infiltration of the right lung and some atelectatic changes in lung bases. There is concern for an evolving right lung pneumonia although this is quite early in the postoperative course. In any rate, the patient is being diuresed for now and the patient is producing adequate amount of urine output. She did have a spike of temperature 100.4 yesterday and currently she is afebrile. The white cell count today is at 12.5 which is comparable to yesterday with a hemoglobin of 9.8 and a platelet count of 192. In terms of the chest tubes, the patient is a mediastinal and left pleural chest tube, output has been noted and it's in the order of overnight 80 mL overnight and 400 mL over the past 24 hours in the mediastinal chest tube, 6 disease overnight and 400 mL over the past 24 hours in the left pleural chest tube. Fiatt-Chandrakant catheter still in place. The cardiac output is currently at 4.3 with an index of 2.0. The PA diastolic is in the order of extreme millimeters of mercury. The patient otherwise has normal renal function. Creatinine is at 0.6. Sodium is at 136. She is obviously n othing by mouth at this point in time as the patient is BiPAP dependent. Cardiac rhythm is still sinus and the patient remains on amiodarone. She remains on aspirin and Plavix. Routine postoperative care is being implemented this point in time. Insulin drip is off and the patient is currently on slice K coverage every 4 hours. 02/26/2022, I'm seeing the patient for a follow-up. The patient is postop day #3. Note that after a successful extubation, the patient was placed on a BiPAP because of ongoing hypoxic respiratory failure. The patient stayed on BiPAP throughout the day yesterday and this morning the patient remains on a BiPAP. Current BiPAP settings of 12/5 with an FiO2 of 80%. While in the BiPAP, the patient is urinating a tidal volume of about 450 with a respiratory rate in the mid 20s and a minute ventilation of 13 L per minute. The chest x-ray showing some further investigation right lung base. Based on that, an ultrasound of the chest was done and there was minimal amount of pleural effusion the right lung base and I think the predominant findings are significant atelectasis in the lung bases right more than left. Note that the chest tubes were all removed ye sterday and the patient the left pleural and mediastinal chest tube both of them removed. Morning blood gases showed a pH of 7.49 with a pCO2 of 33 and pO2 of 60. The patient's FiO2 is currently at 80% on the BiPAP and she is pulse oxing 95%. I dropped her down to 60%. Meanwhile, the pro-calcitonin level obtained yesterday was low at 0.18. The patient was being diuresis with IV Lasix and input output balance has been negative for on 22 mL over the past 24 hours and the patient was taken off the dopamine. The the white cell count is slightly higher compared to yesterday. He 0.9 with a hemoglobin of 10.2 and a platelet count of 266. Sodium is at 135 with a BUN of 30 and creatinine 0.6. The patient is awake. The patient is alert. She is following commands and moving extremities. She is currently on examination aspirin and Plavix. She is also on metoprolol 25 mg by mouth 3 times a day. Cardiac rhythm was sinus and later on she did have a epidural of atrial fibrillation. There is being managed by the cardiothoracic team. The patient will be started back on amiodarone bolus and maintenance. No pressors for now. 02/27/2022, the patient is postop day #4. The patient continues to have diffuse but the pulmonary infiltrates with hypoxic respiratory failure that occurred p ost extubation. The patient remains on a BiPAP at a pressure of 10/5 cm of water with an FiO2 of 70%. Current pulse ox is around 96%. She is a bit disturbed by the BiPAP and she wants to give herself a break. She is urinating adequate tidal volumes above 700 mL an minute ventilation remains quite elevated. The chest x-ray shows small lung volumes, atelectatic changes in lung bases with diffuse breath and pulmonary infiltrates. She has also cardiomegaly. All of the chest tubes are removed. The patient is afebrile. White cell count remains elevated at 19. The patient is producing adequate amount of urine output. The patient is on IV Lasix and overall fluid balance over the past 24 h ours shows that she has been in a negative fluid balance in the urine output is adequate. Input output over the past 24 hours has been in the order of -1.2 L. Otherwise, the rest of the blood work shows a white cell count of 19.2 with a hemoglobin of 10.8 and a platelet count of 375. BUN is 42 with a creatinine of 0.69 the sodium level is at 138 with a potassium level of 4.1. As mentioned, the ultrasound of the chest was done yesterday and there was no evidence of any significant sizable pleural effusion. The chest x-ray from today shows a small right-sided pleural effusion, cardiomegaly along with diffuse breath and pulmonary infiltrates. The patient also had an episode of atrial fibrillation with rapid ventricular response. She was given amiodarone bolus and currently she is on amiodarone at a dose of 400 mg by mouth twice a day. Her current cardiac rhythm is back to sinus. 2021, the patient is postop day #5. The patient is sitting up on a chair. The patient is currently unable to 60 L with an FiO2 of 90%. Chest x-ray essentially unchanged. There is cardiomegaly. There is extensive atelectatic changes with small effusions bilaterally. The patient is currently off the BiPAP. Denies having any significant respiratory distress. Using incentive spirometer and the patient is pulling approximately 7 50 mL. Hemodynamically, she is on no pressors. She is stable. Her cardiac rhythm is sinus and there is no further episodes of atrial fibrillation since yesterday. The overall input output fluid balance has been -1.2 L in the urine output and 95 to on 35 mL over the past 8 hours. The patient has no specific complaints. Surgical with that is dry clean and intact. The white cell count is slightly lower compared to yesterday down to 17 with a hemoglobin of 10.5 and a platelet count of 354. Sodium is at 140 with a mean of 51 acute creatinine of 0.6. Chest x-ray was noted. The patient is currently on empiric antibiotic coverage with a combination of cefepime and vancomycin. A limited ultrasound that was done at the bedside revealed no significant pleural effusion on the right. There is cardiomegaly and there is some consented the patient may have a underlying pericardial effusion. Objective - Vital Signs Vital signs: Vital Signs Temp 97.6 F 02/28/22 04:00 Pulse 78 02/28/22 07:42 Resp 28 H 02/28/22 07:00 BP 158/82 02/28/22 07:00 Pulse Ox 97 02/28/22 07:29 FiO2 94 02/28/22 07:29 Intake & Output 02/27/22 02/28/22 02/28/22 18:59 06:59 18:59 Intake Total 1200 1140 Output Total 919 510 35 Balance 281 630 -35 Weight 114 kg 108.9 kg Intake: IV 100 600 Cefepime 2 gm In Sodium 100 Chloride 0.9% 100 ml @ 200 mls/hr IVPB ONCE STA Rx#:[id number] Dextrose 5% in Water 100 100 ml @ 618 mls/hr IV .Q10M PRN with Amiodarone 150 mg Rx#:[id number] Vancomycin 2,000 mg In 500 Sodium Chloride 0.9% 500 ml 500 ml @ 167 mls/hr IVPB Q12H [facility] Rx#: [id number] Intake, IV Titration 700 Amount Cefepime 2 gm In Sodium 200 Chloride 0.9% 100 ml @ 200 mls/hr IVPB ONCE STA Rx#:[id number] Vancomycin 2,500 mg In 500 Sodium Chloride 0.9% 500 ml 500 ml @ 167 mls/hr IVPB ONCE ONE Rx#: [id number] Oral 400 540 Output: Urine 919 510 35 Other: Voiding Method Indwelling Catheter ABP, PAP, CO, CI - Last Documented Arterial Blood Pressure 281/281 Pulmonary Artery Pressure 43/24 Cardiac Output 4 Cardiac Index 1.9 - Exam CONSTITUTIONAL: Appears comfortable, cooperative, no acute distress mild currently on a Airvo, 60 L with an FiO2 of 90% Breathing is nonlabored and the patient is comfortable sitting up on a chair. RESPIRATORY: Lungs sounds diminished bilaterally, right greater than left. Marked diminished breath on the right lung base CARDIOVASCULAR: S1, S2 present. Regular rate and rhythm, sinus rhythm on telemetry. Sternum stable. Palpable peripheral pulses bilaterally. Trace generalized edema present. No calf pain or tenderness noted. Heart hugger in place with patient demonstrating appropriate use. Antiembolism stockings, SCDs present. GASTROINTESTINAL: Abdomen soft, nontender, nondistended. Active bowel sounds present 4 quadrants, tympanic to percussion. Tolerating liquids for medications. Denies flatus GENITOURINARY: Boss present draining cloudy, yellow urine. Output overnight is in order of 30-40 mL an hour INTEGUMENTARY: Skin is warm and dry with evidence of good perfusion. Anterior chest incision well approximated and covered with dry intact dressing. Right lower extremity EVH site well approximated without redness or drainage. NEUROLOGIC: Cranial nerves II through XII intact MUSKULOSKELETAL: Able to move all extremities, strength equal bilaterally PSYCHIATRIC: Alert and oriented to person place and time, appropriate affect, intact judgment and insight INVASIVE LINES AND TUBES: All of the lines have been removed - Labs CBC & Chem 7: 02/28/22 07:03 02/28/22 07:03 Labs: Abnormal Lab Results - Last 24 Hours (Table) 02/27/22 02/27/22 02/27/22 Range/Units 05:45 12:46 16:35 WBC (3.8-10.6) k/uL RBC (3.80-5.40) m/uL Hgb (11.4-16.0) gm/dL MCHC (31.0-37.0) g/dL Neutrophils # (1.3-7.7) k/uL Lymphocytes # (1.0-4.8) k/uL Monocytes # (0-1.0) k/uL Carbon Dioxide (22-30) mmol/L BUN (7-17) mg/dL Glucose (74-99) mg/dL POC Glucose (mg/dL) 123 H 132 H (70-110) mg/dL AST (14-36) U/L ALT (4-34) U/L Alkaline Phosphatase (38-126) U/L Total Protein (6.3-8.2) g/dL Procalcitonin 0.33 H (0.02-0.09) ng/mL 02/27/22 02/27/22 02/28/22 Range/Units 19:52 23:36 04:27 WBC (3.8-10.6) k/uL RBC (3.80-5.40) m/uL Hgb (11.4-16.0) gm/dL MCHC (31.0-37.0) g/dL Neutrophils # (1.3-7.7) k/uL Lymphocytes # (1.0-4.8) k/uL Monocytes # (0-1.0) k/uL Carbon Dioxide (22-30) mmol/L BUN (7-17) mg/dL Glucose (74-99) mg/dL POC Glucose (mg/dL) 150 H 133 H 126 H (70-110) mg/dL AST (14-36) U/L ALT (4-34) U/L Alkaline Phosphatase (38-126) U/L Total Protein (6.3-8.2) g/dL Procalcitonin (0.02-0.09) ng/mL 02/28/22 02/28/22 02/28/22 Range/Units 07:03 07:03 08:09 WBC 17.0 H (3.8-10.6) k/uL RBC 3.57 L (3.80-5.40) m/uL Hgb 10.5 L (11.4-16.0) gm/dL MCHC 30.9 L (31.0-37.0) g/dL Neutrophils # 14.8 H (1.3-7.7) k/uL Lymphocytes # 0.7 L (1.0-4.8) k/uL Monocytes # 1.1 H (0-1.0) k/uL Carbon Dioxide 19 L (22-30) mmol/L BUN 51 H (7-17) mg/dL Glucose 122 H (74-99) mg/dL POC Glucose (mg/dL) 141 H (70-110) mg/dL AST 84 H (14-36) U/L ALT 95 H (4-34) U/L Alkaline Phosphatase 198 H (38-126) U/L Total Protein 6.2 L (6.3-8.2) g/dL Procalcitonin (0.02-0.09) ng/mL Assessment and Plan Plan: Symptomatic coronary disease, post coronary artery bypass surgery 2, off-pump and the patient is postop day #5. The patient is post intra-aortic balloon pump insertion for hemodynamic support inserted at a time of surgery was subsequently removed and the patient remains hemodynamically stable. Note that the patient was extubated without any major difficulties and over the past 12 hours, and since then, the patient has developed diffuse but the pulmonary infiltrates with hypoxic respiratory failure, and the patient utilizes BiPAP for 48 hours and following that the patient was switched to Airvo currently on 6 L with an FiO2 of 90%. Suspect post surgical ARDS. There is also some atelectatic changes in lung bases bilaterally contributing to this patient's hypoxic respiratory failure. Bedside ultrasound was done revealing no evidence of any pericardial effusion or pleural effusion and sizable amounts. Post thoracotomy, chest tubes are removed, small right-sided pleural effusion on ultrasound the chest that was conducted yesterday. Less on the right lung base remains diminished and the patient remains on Airvo 60 L an FiO2 of 90% Acute hypoxic history failure, likely due to postsurgical ARDS in addition to extensive atelectatic changes in lung bases more so on the right with a small right-sided pleural effusion. The patient is currently is off the BiPAP and the patient is currently on Airvo extremely liters, 90% Paroxysmal atrial fibrillation, expected outcome of surgery currently in sinus rhythm and the patient is currently on po amiodarone Hyperglycemia, postop, the patient is off IV insulin and the patient is currently on insulin scale coverage History of hypertension. No history of any lung disease, and patient at low increased operative risk based on lung function. Prior history of coronavirus infection, July 2021. Postoperative anemia, expected outcome of surgery, hemoglobin is stable for now Leukocytosis plan No evidence of any pleural or pericardial effusion Wean down the FiO2 slowly, keep the flow at 60 and wean down the FiO2 down to l ower levels to maintain a saturation above 90% Continue using incentive spirometer Keep antibiotics for another 24 hours and potentially stop by tomorrow if things aren't improving Continue the prednisone 40 mg by mouth daily Continue beta blockers with metoprolol Diuretics to be stopped today No amiodarone Repeat labs and chest x-ray in the morning We'll continue to follow We'll continue to follow make further recommendations based on her progress. Case was discussed with the cardiothoracic team. Is a critically care evaluation. Evaluation was done and more than 30 minutes. Time with Patient: Greater than 30
[2022-02-28] MEDS: VANCOMYCIN 2,000 MG in SODIUM CHLORIDE 0.9% 500 ML 500 ML IVPB SCH ×2 (10:36→21:06)
[2022-02-28 11:45] LABS: Glucose,Whole Blood 215 mg/dL (70-110)
--- NOTE | 2022-02-28 15:19 | P.PN ---
Subjective Progress Note Date: 02/28/22 HISTORY OF PRESENT ILLNESS This is a pleasant 76 years old female with past medical history of Fibromyal romero, Hyperlipidemia, Hypertension, Osteoarthritis , Supraventricular Tachycardia ,urinary incontinence-wears pad, severe left internal carotid artery stenosis followed by Dr. Fitzgerald, frequent constipation, she was admitted under cardiology service for right arm pain, chest pain and back pain for the last 3 weeks, where she underwent cardiac cath and showing critical and complex lesion involving the distal left main coronary arteries and also involving the ostial left circumflex and the distal LAD with the stenotic range is 80-90% with increase in LVEDP , Patient will need bypass procedure to open his coronary arteries. Currently she denies chest pain or dyspnea. No incontinence of urine or bowel. No fever Patient is hemodynamically stable Labs including CBC, INR, BMP and liver enzymes are unremarkable. TSH is 1.6. Urine analysis showing trace blood. coronavirus not detected. Hepatitis panel is negative Chest x-ray: Minimal interstitial edema noted Carotid duplex: No significant stenosis Echocardiogram showing ejection fraction of 50-55% with [id number] mitral regurgitation and mild tricuspid regurgitation Patient currently on heparin drip, aspirin 81 mg twice a day and normal saline at 75 mL/h as well as Lipitor and metoprolol However patient this morning she is asymptomatic she denies chest pain or dyspnea or abdominal pain. No diarrhea or vomiting or dysuria. No headache or weakness or numbness. 02/23: Patient is denying any chest pain, shortness of breath, palpitations, lightheadedness or dizziness. She is scheduled for CABG this afternoon and patient states that she is ready to move forward. No new concerns from her nurs e. Patient has been afebrile, heart rate 80, blood pressure 129/78 and pulse ox 96% on room air. CBC is unremarkable. Chloride 110, CO2 20, blood sugar 112, creatinine 0.68. 02/24: Patient is status post CABG 2 with left internal mammary artery to the left anterior descending artery, reverse saphenous vein graft to the obtuse marginal artery, ligation of the left atrial appendage with a 40 mm AtriCure clip, endovascular vein harvest of the right greater saphenous vein, placement of intra-aortic balloon pump. Right groin intra-aortic balloon pump was discontinued this morning. Right internal jugular Floral/Cordis, right radial arterial line, mediastinal/left pleural chest tubes remain in place. Patient is stating that she is feeling well. She has been afebrile, heart rate 75, 121/54, pulse ox 93% on 2 L. Capillary blood glucose running between 110 and 120. WBC 9.7, hemoglobin 9.3 and platelet count 195. Electrolytes and renal function normal. AST 85 and ALT 41. 02/25: Patient remains in the intensive care unit. Yesterday pulse ox continued to drop through the day with increased oxygen demands to the point where she is now on BiPAP. She states she feels a little short of breath. She denies Chest pain. Temperature max 100.4, heart rate 76, respiratory rate 32, blood pressure 130/73. lunchroom monitor sinus rhythm. Patient is status post IV Lasix yesterday with good urine output. Blood glucose running between 107 and 124 and insulin drip will be discontinued, transition to NovoLog scale every 4 hours. Urinalysis was turbid, blood small. 02/26: Patient remains in the intensive care unit on BiPAP. She has been unable to eat only taking a few sips of water. Chest tubes have been removed, pacer wires to be removed today. Boss catheter is in place, good urine output. Patient has been afebrile, heart rate in the 80s, blood pressure 144/76, pulse ox 90% on FiO2 80 BiPAP. lunchroom monitor is sinus rhythm. Repeat blood work reveals WBC 19.9, hemoglobin 10.2, platelet count 266. Sodium 135, BUN 30 creatinine 0.67. AST 83 and ALT 60. Blood sugars running between 123 and 160. Chest x-ray reveals stable. Persistent perihilar and basilar patchy densities bilateral small effusions. Chest ultrasound reveals right pleural effusion 4.9 cm 2.2 cm fluid pocket. 02/27: Patient remains in intensive care unit. She has just been transitioned to AirVo and off BiPAP which she utilized during the night and all day yesterday. Patient converted to atrial fibrillation when we walked into the room. Boss remains in place. We have added in a consult for Dr. Stephenson in anticipation the patient will be ready for discharge to a week. She has been afebrile, heart rate 101, respiratory rate 28, blood pressure 154/81, pulse ox 96% FiO2 of 90. Repeat blood work reveals WBC 19.2, hemoglobin 10.8 and platelet count 375. Electrolytes are normal. Creatinine 0.69. AST is 103 and ALT 95. Coronavirus PCR not detected. Patient has been started on cefepime and IV vancomycin prophylactically per pulmonary recommendations. Pro-calcitonin has been ordered Patient is continued on IV Lasix. 02/28, patient's remains in ICU, still with hypersomnia, nasal CPAP in place, on oral prednisone 40 mg, pulse ox 97%, high flow O2, FiO2 90%, vitals are stable, slightly tachypneic, with some conversations dyspnea, patient is sleeping in the recliner often, has trace edema, melatonin 5 mg started, for sleep jainism, indwelling Boss catheter, clear urine, with adequate urine output. Patient receiving IV vancomycin and cefepime, chest x-ray, similar airspace opacities and right pleural effusion, similar cardiomegaly, migjht need furosemide, if shortness of breath and the mass was.. Patient remains in sinus rhythm, no new episodes of atrial fibrillation, since the past 24 hours, creatinine 0.6 sodium 140 hemoglobin 10.5 incentive spirometry, and 750 mL capacity REVIEW OF SYSTEMS Constitutional: No fever, no chills, no night sweats. No weight change. Noted weakness, fatigue no lethargy. No daytime sleepiness. EENT: No headache. No blurred vision or double vision, no loss of vision. No loss of Hearing, no ringing in the ears, no dizziness. No nasal drainage or congestion. No epistaxis. No sore throat. Lungs: Minimal shortness of breath, cough, no sputum production. No wheezing. Cardiovascular: Denies chest pain, no lower extremity edema. No palpitations. No paroxysmal nocturnal dyspnea. No orthopnea. No lightheadedness or dizziness. No syncopal episodes. Abdominal: No abdominal pain. No nausea, vomiting. No diarrhea. No constipati on. No bloody or tarry stools. No loss of appetite. Genitourinary: No dysuria, increased frequency, urgency. No urinary retention. Musculoskeletal: No myalgias. No muscle weakness, no gait dysfunction, no frequent falls. No back pain. No neck pain. Integumentary: No wounds, no lesions. No rash or pruritus. No unusual bruising. No change in hair or nails. Neurologic: No aphasia. No facial droop. No change in mentation. No head injury. No headache. No paralysis. No paresthesia. Psychiatric: No depression. No anxiety. No mood swings. Endocrine: No abnormal blood sugars. No weight change. No excessive sweating or thirst. PHYSICAL EXAMINATION Gen: This is a 76-year-old overweight female. She is resting in bed and appears to be comfortable and in no acute distress. HEENT: Head is atraumatic, normocephalic. Pupils equal, round. Sclerae is anicteric. NECK: Supple. No JVD. No lymphadenopathy. No thyromegaly. LUNGS: Clear to auscultation. No wheezes or rhonchi. No intercostal retractions. HEART: Regular rate and rhythm. Systolic murmur. ABDOMEN: Soft. Bowel sounds are present. No masses. No tenderness. Boss catheter draining cora urine EXTREMITIES: No calf tenderness. Trace edema bilateral ankles 2+1 edema NEUROLOGICAL: Patient is awake, alert and oriented x3. Cranial nerves 2 through 12 are grossly intact. ASSESSMENT AND PLAN 1. Severe coronary artery disease status post 2 vessel CABG 02/23. Continue current plan per cardiothoracic team. Continue aspirin 325 mg daily, Lipitor 80 mg daily, Plavix 75 mg daily, continue [place] as needed for pain, DuoNeb treatments 4 times daily and as needed, Lopressor increased to 50 mg twice daily. Patient is also been started on cefepime and IV vancomycin, prednisone 40 mg daily. Pro-calcitonin pending. 2. Acute hypoxic respiratory failure. Patient has been on BiPAP, transition to AirVo on 02/27. 3. Worsening bilateral lung infiltrates and small right pleural effusion. Patient has been started on cefepime and IV vancomycin, pro-calcitonin, Lasix 20 g IV every 12 hours. 4. Hypertension. Patient started on lisinopril 5 mg daily, continue Lopressor, hydralazine as needed, Lasix every 12 hours IV 20 mg 5. Hyperlipidemia. Continue atorvastatin. 6. Carotid artery disease. Continue aspirin, atorvastatin. 7. Hyperglycemia. Continue patient on NovoLog scale every 4 hours. 8. New onset paroxysmal atrial fibrillation. Lopressor was increased to 50 mg twice daily. 9. GI prophylaxis. Protonix 40 mg daily 10. DVT prophylaxis. Heparin subcu. DISCHARGE PLAN Most likely a good candidate for inpatient rehab. Consult with Dr. Stephenson. Laboratory Results - Last 24 Hours 02/27/22 02/27/22 02/27/22 05:45 16:35 19:52 WBC RBC Hgb Hct MCV MCH MCHC RDW Plt Count MPV Neutrophils % Lymphocytes % Monocytes % Eosinophils % Basophils % Neutrophils # Lymphocytes # Monocytes # Eosinophils # Basophils # Hypochromasia Sodium Potassium Chloride Carbon Dioxide Anion Gap BUN Creatinine Est GFR (CKD-EPI)AfAm Est GFR (CKD-EPI)NonAf Glucose POC Glucose (mg/dL) 132 H 150 H POC Glu Traffic Controller Cable ID Alona Wu Daniel Calcium Total Bilirubin AST ALT Alkaline Phosphatase Total Protein Albumin Procalcitonin 0.33 H 02/27/22 02/28/22 02/28/22 23:36 04:27 07:03 WBC RBC Hgb Hct MCV MCH MCHC RDW Plt Count MPV Neutrophils % Lymphocytes % Monocytes % Eosinophils % Basophils % Neutrophils # Lymphocytes # Monocytes # Eosinophils # Basophils # Hypochromasia Sodium 140 Potassium 4.0 Chloride 106 Carbon Dioxide 19 L Anion Gap 15 BUN 51 H Creatinine 0.67 Est GFR (CKD-EPI)AfAm >90 Est GFR (CKD-EPI)NonAf 86 Glucose 122 H POC Glucose (mg/dL) 133 H 126 H POC Glu Traffic Controller Cable ID Steven Moran Daniel Calcium 8.6 Total Bilirubin 1.1 AST 84 H ALT 95 H Alkaline Phosphatase 198 H Total Protein 6.2 L Albumin 3.7 Procalcitonin 02/28/22 02/28/22 02/28/22 07:03 08:09 11:44 WBC 17.0 H RBC 3.57 L Hgb 10.5 L Hct 34.0 MCV 95.2 MCH 29.4 MCHC 30.9 L RDW 14.9 Plt Count 354 MPV 8.1 Neutrophils % 87 Lymphocytes % 4 Monocytes % 7 Eosinophils % 0 Basophils % 0 Neutrophils # 14.8 H Lymphocytes # 0.7 L Monocytes # 1.1 H Eosinophils # 0.0 Basophils # 0.1 Hypochromasia Moderate Sodium Potassium Chloride Carbon Dioxide Anion Gap BUN Creatinine Est GFR (CKD-EPI)AfAm Est GFR (CKD-EPI)NonAf Glucose POC Glucose (mg/dL) 141 H 215 H POC Glu Traffic Controller Cable ID Jodi Wall Angela Calcium Total Bilirubin AST ALT Alkaline Phosphatase Total Protein Albumin Procalcitonin Active Medications Acetaminophen (Acetaminophen Tab 325 Mg Tab) 650 mg PO Q4HR PRN PRN Reason: Fever and/ or Pain Albuterol/Ipratropium (Ipratropium-Albuterol 3 Ml Neb) 3 ml INHALATION RT-Q2H PRN PRN Reason: Shortness Of Breath Or Wheezing Last Admin: 02/26/22 00:45 Dose: 3 ml Albuterol/Ipratropium (Ipratropium-Albuterol 3 Ml Neb) 3 ml INHALATION RT-QID [facility] Last Admin: 02/28/22 11:22 Dose: 3 ml Aspirin (Aspirin 325 Mg Tab) 325 mg PO DAILY [facility] Last Admin: 02/28/22 07:57 Dose: 325 mg Atorvastatin Calcium (Atorvastatin 80 Mg Tab) 80 mg PO DAILY [facility] Stop: 03/23/22 09:01 Last Admin: 02/28/22 07:58 Dose: 80 mg Benzocaine/Menthol (Benzocaine/Menthol Lozeng 1 Each Lozenge) 1 each MUCOUS MEM Q2H PRN PRN Reason: Sore Throat Bisacodyl (Bisacodyl 10 Mg Supp) 10 mg RECTAL DAILY PRN PRN Reason: Constipation Last Admin: 02/28/22 07:57 Dose: 10 mg Clopidogrel Bisulfate (Clopidogrel 75 Mg Tab) 75 mg PO DAILY [facility] Last Admin: 02/28/22 07:58 Dose: 75 mg Heparin Sodium (Porcine) (Heparin Sodium,Porcine/Pf 5,000 Unit/0.5 Ml Syringe) 5,000 unit SQ Q8HR [facility] Last Admin: 02/28/22 07:57 Dose: 5,000 unit Hydralazine HCl (Hydralazine Hcl 20 Mg/Ml 1 Ml Vial) 10 mg IVP Q1H PRN PRN Reason: Blood Pressure - High Last Admin: 02/28/22 06:26 Dose: 10 mg Calcium Gluconate/Sodium (Chloride 2 gm/ IV Solution) 100 mls @ 100 mls/hr IVPB ONCE PRN PRN Reason: Ionized Calcium less than 4.4 Stop: 03/05/22 17:34 Cefepime HCl 2 gm/ Sodium (Chloride) 100 mls @ 25 mls/hr IVPB Q8HR [facility] Last Admin: 02/28/22 07:58 Dose: 25 mls/hr Vancomycin HCl 2,000 mg/ (Sodium Chloride) 500 mls @ 167 mls/hr IVPB Q12H [facility] Last Admin: 02/28/22 10:36 Dose: 167 mls/hr Insulin Aspart (Insulin Aspart (Novolog) 100 Unit/Ml Vial) 0 unit SQ Q4H [facility]; Protocol Last Admin: 02/28/22 11:55 Dose: 4 unit Lisinopril (Lisinopril 10 Mg Tab) 10 mg PO BID [facility] Last Admin: 02/28/22 07:58 Dose: 10 mg Magnesium Hydroxide (Magnesium Hydroxide 2,400 Mg/10 Ml Cup) 2,400 mg PO BID PRN PRN Reason: Constipation Last Admin: 02/28/22 07:57 Dose: 2,400 mg Melatonin (Melatonin 5 Mg Tablet) 5 mg PO [facility] Metoclopramide HCl (Metoclopramide 5 Mg/Ml 2 Ml Vial) 10 mg IVP Q4H PRN PRN Reason: Nausea And Vomiting Last Admin: 02/25/22 06:57 Dose: 10 mg Metoprolol Tartrate (Metoprolol Tartrate 50 Mg Tab) 50 mg PO BID [facility] Last Admin: 02/28/22 07:58 Dose: 50 mg Miscellaneous Information (Potassium Replacement Protocol 1 Each Misc) 1 each MISCELLANE DAILY PRN; Protocol PRN Reason: Per Protocol Miscellaneous Information (Magnesium Replacement Protocol 1 Each Misc) 1 each MISCELLANE DAILY PRN; Protocol PRN Reason: Per Protocol Miscellaneous Information (Vancomycin Trough Due 1 Each Misc) 0 each MISCELLANE DIRECTED ONE Stop: 03/01/22 09:01 Mupirocin (Mupirocin 2% Oint 22 Gm Tube) 1 applic NASAL BID [facility]; Protocol Last Admin: 02/28/22 07:58 Dose: 1 applic Ondansetron HCl (Ondansetron 4 Mg/2 Ml Vial) 4 mg IVP Q6HR PRN PRN Reason: Nausea And Vomiting Last Admin: 02/23/22 22:57 Dose: 4 mg Pantoprazole Sodium (Pantoprazole 40 Mg Tablet) 40 mg PO -BRKFST [facility] Last Admin: 02/28/22 06:34 Dose: 40 mg Prednisone (Prednisone 20 Mg Tab) 40 mg PO DAILY [facility] Last Admin: 02/28/22 07:57 Dose: 40 mg Senna/Docusate Sodium (Sennosides-Docusate Sodium 1 Each Tab) 2 each PO HS [facility] Last Admin: 02/27/22 20:02 Dose: 2 each Sodium Chloride (Sodium Chloride 0.9% Flush 10 Ml Syringe) 10 ml IV BID [facility] Last Admin: 02/28/22 10:01 Dose: Not Given Objective - Vital Signs Vital signs: Vital Signs Temp 97.8 F 02/28/22 08:00 Pulse 70 02/28/22 12:00 Resp 24 02/28/22 12:00 BP 135/88 02/28/22 12:00 Pulse Ox 97 02/28/22 12:00 FiO2 90 02/28/22 11:22 Intake & Output 02/27/22 02/28/22 02/28/22 18:59 06:59 18:59 Intake Total 1200 1140 960 Output Total 919 510 185 Balance 281 630 775 Weight 114 kg 108.9 kg Intake: IV 100 600 500 Cefepime 2 gm In Sodium 100 Chloride 0.9% 100 ml @ 200 mls/hr IVPB ONCE STA Rx#:[id number] Dextrose 5% in Water 100 100 ml @ 618 mls/hr IV .Q10M PRN with Amiodarone 150 mg Rx#:[id number] Vancomycin 2,000 mg In 500 500 Sodium Chloride 0.9% 500 ml 500 ml @ 167 mls/hr IVPB Q12H [facility] Rx#: [id number] Intake, IV Titration 700 100 Amount Cefepime 2 gm In Sodium 200 Chloride 0.9% 100 ml @ 200 mls/hr IVPB ONCE STA Rx#:[id number] Cefepime 2 gm In Sodium 100 Chloride 0.9% 100 ml @ 25 mls/hr IVPB Q8HR [facility] Rx# :[id number] Vancomycin 2,500 mg In 500 Sodium Chloride 0.9% 500 ml 500 ml @ 167 mls/hr IVPB ONCE ONE Rx#: [id number] Oral 400 540 360 Output: Urine 919 510 185 Other: Voiding Method Indwelling Catheter Indwelling Catheter ABP, PAP, CO, CI - Last Documented Arterial Blood Pressure 281/281 Pulmonary Artery Pressure 43/24 Cardiac Output 4 Cardiac Index 1.9 - Labs CBC & Chem 7: 02/28/22 07:03 02/28/22 07:03 Labs: Abnormal Lab Results - Last 24 Hours (Table) 02/27/22 02/27/22 02/27/22 Range/Units 05:45 16:35 19:52 WBC (3.8-10.6) k/uL RBC (3.80-5.40) m/uL Hgb (11.4-16.0) gm/dL MCHC (31.0-37.0) g/dL Neutrophils # (1.3-7.7) k/uL Lymphocytes # (1.0-4.8) k/uL Monocytes # (0-1.0) k/uL Carbon Dioxide (22-30) mmol/L BUN (7-17) mg/dL Glucose (74-99) mg/dL POC Glucose (mg/dL) 132 H 150 H (70-110) mg/dL AST (14-36) U/L ALT (4-34) U/L Alkaline Phosphatase (38-126) U/L Total Protein (6.3-8.2) g/dL Procalcitonin 0.33 H (0.02-0.09) ng/mL 02/27/22 02/28/22 02/28/22 Range/Units 23:36 04:27 07:03 WBC (3.8-10.6) k/uL RBC (3.80-5.40) m/uL Hgb (11.4-16.0) gm/dL MCHC (31.0-37.0) g/dL Neutrophils # (1.3-7.7) k/uL Lymphocytes # (1.0-4.8) k/uL Monocytes # (0-1.0) k/uL Carbon Dioxide 19 L (22-30) mmol/L BUN 51 H (7-17) mg/dL Glucose 122 H (74-99) mg/dL POC Glucose (mg/dL) 133 H 126 H (70-110) mg/dL AST 84 H (14-36) U/L ALT 95 H (4-34) U/L Alkaline Phosphatase 198 H (38-126) U/L Total Protein 6.2 L (6.3-8.2) g/dL Procalcitonin (0.02-0.09) ng/mL 02/28/22 02/28/22 02/28/22 Range/Units 07:03 08:09 11:44 WBC 17.0 H (3.8-10.6) k/uL RBC 3.57 L (3.80-5.40) m/uL Hgb 10.5 L (11.4-16.0) gm/dL MCHC 30.9 L (31.0-37.0) g/dL Neutrophils # 14.8 H (1.3-7.7) k/uL Lymphocytes # 0.7 L (1.0-4.8) k/uL Monocytes # 1.1 H (0-1.0) k/uL Carbon Dioxide (22-30) mmol/L BUN (7-17) mg/dL Glucose (74-99) mg/dL POC Glucose (mg/dL) 141 H 215 H (70-110) mg/dL AST (14-36) U/L ALT (4-34) U/L Alkaline Phosphatase (38-126) U/L Total Protein (6.3-8.2) g/dL Procalcitonin (0.02-0.09) ng/mL
[2022-02-28 16:36] LABS: Glucose,Whole Blood 143 mg/dL (70-110)
[2022-02-28 20:35] LABS: Glucose,Whole Blood 123 mg/dL (70-110)
[2022-02-28] MEDS: MELATONIN 5 MG TABLET PO SCH (20:55)
[2022-02-28] MEDS: SENNOSIDES-DOCUSATE SODIUM 1 EACH TAB PO SCH (20:55)
[2022-02-28 23:50] LABS: Glucose,Whole Blood 118 mg/dL (70-110)
[2022-03-01] MEDS: CEFEPIME 2 GM in SODIUM CHLORIDE 0.9% 100 ML IVPB SCH ×4 (00:48→23:46)
[2022-03-01] MEDS: hydrALAZINE HCL 20 MG/ML 1 ML VIAL IVP PRN (03:23)
[2022-03-01 04:22] LABS: Glucose,Whole Blood 114 mg/dL (70-110)
[2022-03-01] MEDS: INSULIN ASPART (NovoLOG) 100 UNIT/ML VIAL SQ SCH ×5 (04:31→20:06)
[2022-03-01] MEDS: MAGNESIUM HYDROXIDE 2,400 MG/10 ML CUP PO PRN (06:20)
[2022-03-01] MEDS: PANTOPRAZOLE 40 MG TABLET PO SCH (06:20)
[2022-03-01] MEDS: METOPROLOL TARTRATE 50 MG TAB PO SCH ×2 (06:58→20:06)
[2022-03-01] MEDS: IPRATROPIUM-ALBUTEROL 3 ML NEB INHALATION SCH ×4 (07:11→19:28)
--- NOTE | 2022-03-01 07:26 | XR ---
EXAMINATION TYPE: XR chest 1V portable DATE OF EXAM: 03/01/2022 5:44 AM COMPARISON: Chest radiographs from same day. TECHNIQUE: XR chest 1V portable Portable AP radiograph of the chest.. CLINICAL INDICATION:Female, 76 years old with history of Postoperative cardiac surgery; FINDINGS: Lungs/Pleura: No evidence of focal consolidation or pneumothorax. Blunting of the costophrenic angles is present. Pulmonary vascularity: Pulmonary vascular congestion. Heart/mediastinum: Cardiomediastinal silhouette is enlarged and stable. Left atrial appendage occlusi on devices present. Musculoskeletal: No acute osseous pathology. Midline sternotomy wires are noted and stable. IMPRESSION: Stable exam given patient positioning with pulmonary vascular congestion, cardiomegaly and small bila teral pleural effusions.
[2022-03-01] MEDS: predniSONE 20 MG TAB PO SCH (07:43)
[2022-03-01] MEDS: lisinopriL 10 MG TAB PO SCH ×2 (07:43→20:06)
[2022-03-01] MEDS: ATORVASTATIN 80 MG TAB PO SCH (07:43)
[2022-03-01] MEDS: ASPIRIN 325 MG TAB PO SCH (07:43)
[2022-03-01] MEDS: CLOPIDOGREL 75 MG TAB PO SCH (07:44)
[2022-03-01] MEDS: HEPARIN SODIUM,PORCINE/PF 5,000 UNIT/0.5 ML SYRINGE SQ SCH ×3 (07:44→23:51)
[2022-03-01 07:56] LABS: Basophils % (A) 0 %; Eosinophils % (A) 0 %; HCT 31.1 % (34.0-46.0); HGB 10.2 gm/dL (11.4-16.0); Hypochromasia Slight; Lymphocytes # (A) 0.6 k/uL (1.0-4.8); Lymphocytes % (A) 5 %; MCH 29.9 pg (25.0-35.0); MCHC 32.6 g/dL (31.0-37.0); MCV 91.7 fL (80.0-100.0); Mean Platelet Volume 7.6; Monocytes # (A) 0.7 k/uL (0-1.0); Monocytes % (A) 6 %; Neutrophils # (A) 10.9 k/uL (1.3-7.7); Neutrophils % (A) 87 %; Platelet Count 366 k/uL (150-450); RBC 3.39 m/uL (3.80-5.40); RDW 15.2 % (11.5-15.5); WBC 12.5 k/uL (3.8-10.6)
[2022-03-01 08:09] LABS: Albumin 3.4 g/dL (3.5-5.0); Calcium 8.4 mg/dL (8.4-10.2); Potassium 4.2 mmol/L (3.5-5.1); Total Bilirubin 0.9 mg/dL (0.2-1.3); Total Protein 5.8 g/dL (6.3-8.2)
[2022-03-01] MEDS: MUPIROCIN 2% OINT 22 GM TUBE NASAL SCH (08:16)
[2022-03-01] MEDS ORDERED: VANCOMYCIN TROUGH DUE 1 EACH MISC MISCELLANE ONE (09:00)
--- NOTE | 2022-03-01 09:01 | P.PN ---
Subjective Progress Note Date: 03/01/22 Principal diagnosis: Coronary artery disease with left main disease, unstable angina, atrial arrhythmias. Past medical history significant for hypertension, hyperlipidemia, SVT, left internal carotid artery stenosis, obesity, lifetime nonsmoker, remains unvaccinated against Covid, and family history of coronary artery disease. POD #6 off-pump coronary artery bypass grafting 2 with left internal mammary artery to the left anterior descending coronary artery, reverse saphenous vein graft to the obtuse marginal coronary artery, ligation of the left atrial appendage with a 40 mm AtriCure clip, endovascular vein harvest of the right greater saphenous vein, placement of intra-aortic balloon pump. Postoperative acute blood loss anemia, expected given hemodilution. Acute hypoxic respiratory failure requiring bipap. The patient was seen and examined in follow-up today 03/01/2022 at her bedside in the intensive care unit. Currently, the patient is sitting up to bedside chair, is awake, alert, oriented 3 and is in no acute distress. She denies any complaints of pain at this time and reports she does Have some shortness of breath with activity. Oxygen saturation are 97% on AIRVO 60 L/m and 60% FiO2. She is achieving 1000 mL on her incentive spirometry with encouragement. Bedside telemetry is showing normal sinus rhythm heart rate 63 BPM. The patient's nurse reports that she has had a few episodes of paroxysmal atrial fibrillation throughout the night. She has been afebrile the last 24 hours, continues on cefepime and vancomycin for empiric antibiotic coverage. Laboratory results this morning show a WBC count which is trending down at 12.5, hemoglobin 10.2, hematocrit 31.1, platelets 366, sodium 140, potassium 4.2, BUN 50, creatinine 0.77, glucose 123, AST 62 and ALT 78. The patient reports she has been up ambulating with assistance from nursing and therapy staff, has been walking outside of her room and back to the chair. She remains on prednisone 40 mg by mouth daily. Lasix continues to be on hold. She remained hemodynamically stable and currently on no inotropic or pressor support. Boss catheter was removed yesterday and she continues to void with 550 mL of urine output in the last 8 hours. Objective - Vital Signs Vital signs: Vital Signs Temp 98.2 F 03/01/22 08:00 Pulse 63 03/01/22 08:00 Resp 20 03/01/22 08:00 BP 129/86 03/01/22 08:00 Pulse Ox 98 03/01/22 08:00 FiO2 60 03/01/22 08:00 Intake & Output 02/28/22 03/01/22 03/01/22 18:59 06:59 18:59 Intake Total 1180 600 340 Output Total 290 550 0 Balance 890 50 340 Weight 109.4 kg Intake: IV 500 600 100 Cefepime 2 gm In Sodium 100 100 Chloride 0.9% 100 ml @ 25 mls/hr IVPB Q8HR [facility] Rx# :[id number] Vancomycin 2,000 mg In 500 500 Sodium Chloride 0.9% 500 ml 500 ml @ 167 mls/hr IVPB Q12H [facility] Rx#: [id number] Intake, IV Titration 200 Amount Cefepime 2 gm In Sodium 200 Chloride 0.9% 100 ml @ 25 mls/hr IVPB Q8HR [facility] Rx# :[id number] Oral 480 240 Output: Urine 290 550 0 Other: Voiding Method External Catheter External Catheter # Voids 0 ABP, PAP, CO, CI - Last Documented Arterial Blood Pressure 281/281 Pulmonary Artery Pressure 43/24 Cardiac Output 4 Cardiac Index 1.9 - Exam CONSTITUTIONAL: Currently sitting up to the bedside chair in the intensive care unit. Appears comfortable, cooperative, no acute distress. RESPIRATORY: Lungs sounds diminished bilaterally, right greater than left. Respirations are symmetrical and nonlabored. Currently on AIRVO, FiO2 60%, 60 L/m with oxygen saturation 97%. Strong nonproductive cough. Achieving 1000 mL on her incentive spirometry with encouragement. CARDIOVASCULAR: S1, S2 present. Regular rate and rhythm, sinus rhythm on telemetry. Sternum stable. Palpable peripheral pulses bilaterally. Trace generalized edema present. No calf pain or tenderness noted. Heart hugger in place with patient demonstrating appropriate use. Antiembolism stockings, SCDs present. GASTROINTESTINAL: Abdomen soft, nontender, nondistended. Active bowel sounds present 4 quadrants. Tolerating diet. Passing flatus. GENITOURINARY: Continues to void with 550 mL of urine output in the last 8 hours. INTEGUMENTARY: Skin is warm and dry with evidence of good perfusion. Midline sternal incision is well approximated and covered with dry intact dressing. Right lower extremity EVH site well approximated without redness or drainage. NEUROLOGIC: Cranial nerves II through XII intact. No focal deficits. MUSKULOSKELETAL: Able to move all extremities, strength equal bilaterally. PSYCHIATRIC: Alert and oriented to person place and time, appropriate affect, intact judgment and insight. - Allied health notes Allied health notes reviewed: nursing - Labs CBC & Chem 7: 03/01/22 07:35 03/01/22 07:35 Labs: Abnormal Lab Results - Last 24 Hours (Table) 02/28/22 02/28/22 02/28/22 Range/Units 11:44 16:35 20:33 WBC (3.8-10.6) k/uL RBC (3.80-5.40) m/uL Hgb (11.4-16.0) gm/dL Hct (34.0-46.0) % Neutrophils # (1.3-7.7) k/uL Lymphocytes # (1.0-4.8) k/uL Chloride (98-107) mmol/L BUN (7-17) mg/dL Glucose (74-99) mg/dL POC Glucose (mg/dL) 215 H 143 H 123 H (70-110) mg/dL AST (14-36) U/L ALT (4-34) U/L Alkaline Phosphatase (38-126) U/L Total Protein (6.3-8.2) g/dL Albumin (3.5-5.0) g/dL 02/28/22 03/01/22 03/01/22 Range/Units 23:48 04:20 07:35 WBC (3.8-10.6) k/uL RBC (3.80-5.40) m/uL Hgb (11.4-16.0) gm/dL Hct (34.0-46.0) % Neutrophils # (1.3-7.7) k/uL Lymphocytes # (1.0-4.8) k/uL Chloride 108 H (98-107) mmol/L BUN 50 H (7-17) mg/dL Glucose 123 H (74-99) mg/dL POC Glucose (mg/dL) 118 H 114 H (70-110) mg/dL AST 62 H (14-36) U/L ALT 78 H (4-34) U/L Alkaline Phosphatase 176 H (38-126) U/L Total Protein 5.8 L (6.3-8.2) g/dL Albumin 3.4 L (3.5-5.0) g/dL 03/01/22 Range/Units 07:35 WBC 12.5 H (3.8-10.6) k/uL RBC 3.39 L (3.80-5.40) m/uL Hgb 10.2 L (11.4-16.0) gm/dL Hct 31.1 L (34.0-46.0) % Neutrophils # 10.9 H (1.3-7.7) k/uL Lymphocytes # 0.6 L (1.0-4.8) k/uL Chloride (98-107) mmol/L BUN (7-17) mg/dL Glucose (74-99) mg/dL POC Glucose (mg/dL) (70-110) mg/dL AST (14-36) U/L ALT (4-34) U/L Alkaline Phosphatase (38-126) U/L Total Protein (6.3-8.2) g/dL Albumin (3.5-5.0) g/dL - Imaging and Cardiology Chest x-ray: report reviewed, image reviewed Assessment and Plan Assessment: 1. Coronary artery disease with left main disease, status post 2 vessel CABG 2. Hypertension 3. Hyperlipidemia, cholesterol 182, LDL 122 4. SVT, intraoperative atrial arrhythmias with cardioversion, status post left atrial appendage ligation 5. Left internal carotid artery stenosis 6. Obesity 7. Never smoker, preoperative FEV1 72% of predicted 8. History of covid infection in July 2021, remains unvaccinated against Covid, negative COVID-19 PCR 9. Family history of coronary artery disease 10. Nasal swab positive for MSSA, treated with mupirocin 11. Preserved LV function with mild to moderate mitral regurgitation on transthoracic echocardiogram 12. Acute blood loss anemia 13. Acute hypoxic respiratory failure requiring bipap 14. Leukocytosis with low grade fever Plan: 1. Continue to maximize medical management with aspirin, Plavix, statin, beta ena and TASHI inhibitor. Will increase metoprolol tartrate as tolerated. 2. Continue to hold amiodarone, due to her respiratory status. No anticoagulation necessary at this point. 3. Wean O2 as tolerated. Encourage incentive spirometry 10 times every hour while awake. Bronchodilators per pulmonology. 4. Increase activity as tolerated. PT/OT/cardiac rehab following. 5. GI/DVT prophylaxis. 6. Will monitor daily labs and chest x-ray. Electrolyte replacement per protocol. 7. Pain control with current medication regimen. 8. Insulin management per primary care service. Patient is not diabetic, preoperative hemoglobin A1c 5.6%. 9. Continue to record strict accurate intake and output. May bladder scan every 6 hours and when necessary postvoid residual. If greater than 300 mL of urine may straight cath. Daily weights. 10. Continue cefepime 2 g IV piggyback every 8 hours and vancomycin pharmacy to dose per pulmonary/critical care medicine recommendations. 11. Continue Prednisone 40 mg by mouth daily per pulmonary/critical care medicine recommendations. 12. Encourage nutrition and advance diet as tolerated. 13. More recommendations follow based on patient's clinical course. Time with Patient: Greater than 30
--- NOTE | 2022-03-01 09:22 | P.PN ---
Subjective Progress Note Date: 03/01/22 This is a patient who had a recent heart catheterization, showing a critical and complex lesion involving the distal left main coronary artery, also, the ostial left circumflex, and ostial LAD. The lesions appear to be in the range of 80- 90%, and the patient was also noted to have elevated left ventricular end- diastolic filling pressures. The patient is currently being evaluated by cardiothoracic surgery for possible bypass grafting. We will reassess to see the patient preoperatively, and evaluate her lung function. The patient is a lifelong nonsmoker. She has no history of lung disease. Based on her FEV1, and her MVV, she was in the low operative risk range. Outpatient medications includ ed amlodipine, aspirin, metoprolol, lisinopril, zinc, vitamin D3, ascorbic acid, lactulose, and indoor. Her only major medical problem is hypertension. She does have a history of previous coronavirus infection and was seen by my partner in July 2021. CBC is completely normal. PTT is 39.7. Sodium 141, potassium 3.7, chlorides 111, CO2 24, BUN 12, creatinine 0.63. Cholesterol was 182. Urine was negative. Testing for coronavirus was negative. Chest x-ray shows mild interstitial edema. Currently she is on room air. Progress note dated 02/22/2022. 76-year-old female we saw yesterday in consultation. The patient has significant coronary disease, involving the left main coronary artery. The patient is apparently going to have open heart surgery one day this week. The exact day has not been decided yet. Clinically, she's. Stable. She is on room air. She is a lifelong nonsmoker. Lung function would suggest that she's at a very low increased operative risk based on her FEV1 and MVV. Labs today show white count of 6.1, with a normal hemoglobin, hematocrit, and platelet count. The patient's PTT is 60.2. Sodium 141, potassium 3.6, chlorides 111, CO2 24, BUN 12, creatinine 0.72. 02/23/2022, the patient is awaiting bypass surgery. The patient is calm and comfortable. No respiratory difficulties whatsoever. She is using incentive spirometer. Her preop FEV1 is order of 72% of predicted. No angina. No palpitations. No chest pain. She is hemodynamically stable at this point in time. She remains on IV heparin. I did introduce myself and I will take care o f this patient postop, managed to ventilator and the necessity pulmonary care following her thoracotomy bypass surgery.no other active issues for now. The patient was sent comes at 6.2 with a hemoglobin 4.5. She is on IV heparin with a PTT of 55. BUN is at 12 with a creatinine 0.6 and the sodium level is at 140. 02/24/2022, I'm seeing the patient for a follow-up. The patient was taken to the operating room yesterday and the patient underwent an off-pump coronary artery bypass surgery with RAMOS to LAD and saphenous vein graft to obtuse marginal. The patient also had a left facial appendage clipping. Estimated blood loss was 400 mL. The patient received a total of 3 L of intraoperative IV fluids. Note that the patient was having issues with hypotension and there was some interval worsening of the mitral regurgitation intraoperatively. At that point, it was decided to insert an intra-aortic balloon pump and this was done through the right common femoral artery. Once the intra-aortic balloon pump was initiated, the patient's hemodynamics improved dramatically. The patient was given a postop echo cardiac exam that showed a mild MR and good ejection fraction. The intra-aortic balloon pump was placed on a one-to-one augmentation and following that the patient was brought into the intensive care unit. The patient subsequently was weaned off the sedation and the patient was extubated without any major difficulties within a few hours. The patient was extubated and the fourth hours after arriving to the ICU. The patient had with good weaning parameters. The patient had a blood gas that showed adequate oxygenation and ventilation. Based on that, the patient was extubated. This morning, the patient remains on oxygen at 6 L per minute nasal cannula. The chest x-ray showing cardiomegaly. The patient is a mediastinal and left pleural chest tube. Output from the chest tubes have been 250 mL from the mediastinum and 280 from the left pleural since surgery. No evidence of any air leak. The chest x-ray shows no evidence of any pneumothorax. Hemodynamically, the patient is currently receiving intra-aortic balloon pump augmentation of 1-2. The patient has adequate cardiac output of 4.3 and an index of 2. She is on no pressors for now. The intra-aortic balloon pump will be removed for now. The patient is stable to systemic adequate blood pressure was the patient being off the balloon pump. Urine output is in order of 20 mL an hour. The patient is a febrile. The patient is awake and following commands thoracic questions appropriately. Pulmonary artery pressures are 38 over 18 mmHg. Lower blood work from work today is showing a sodium of 139, potassium of 4, bicarb of 26, BUN of 14 with a creatinine of 0.6. The white cell count is at 9.7 with a hemoglobin of 9.3 and a platelet count of 195. AST is 85 with an ALT of 60 and alkaline phosphatase of 41. Magnesium level is at 2.1. Note that the patient had a run of atrial fibrillation intraoperatively. The patient was loaded with amiodarone and currently the patient is on 0.5 mg per minute of amiodarone infusion. The patient is in a normal sinus rhythm. The patient is also on an insulin drip running at 2.5 units an hour with adequate blood sugar control. The patient's of lactated Ringer at the rate of 50 mL an hour. As mentioned, awake and alert and the sternum is dry clean and intact. No other issues otherwise for now. Breaks 02/25/2022, I'm seeing the patient for a follow-up. The patient is postop day #2. Note that this patient was extubated successfully without any issues. Subsequently, as of yesterday afternoon, the patient became progressively more hypoxic. Note that during the day, the patient was given IV albumin a total of 750 mL to improve her urine output. This did help and ultimately dopamine was added at renal dose to improve her urine output. Subsequently, she became more hypoxic and the patient became more short of breath and initially she went up to 15 L high flow and later on the patient was placed on a BiPAP. She was kept on BiPAP throughout the night and the patient is currently on a BiPAP at a pressure of 12/5 cm of water and FiO2 of on the percent. She is able to generate tidal volumes above 500. Respiratory rate is in the mid 20s. Her breathing is slightly labored even on the BiPAP, yet she is able to tolerate the machine w ithout any major difficulties and she is awake and alert and she is following commands and answering questions and she is neurologically intact. At the same time, the patient had a blood. This morning that showed a pH of 7.97.49 with a pCO2 of 35 and a pO2 of 55 and this was on FiO2 of 85% and based on that the FiO2 was brought up to 100%. The chest x-ray showing cardiomegaly. There is some infiltration of the right lung and some atelectatic changes in lung bases. There is concern for an evolving right lung pneumonia although this is quite early in the postoperative course. In any rate, the patient is being diuresed for now and the patient is producing adequate amount of urine output. She did have a spike of temperature 100.4 yesterday and currently she is afebrile. The white cell count today is at 12.5 which is comparable to yesterday with a hemoglobin of 9.8 and a platelet count of 192. In terms of the chest tubes, the patient is a mediastinal and left pleural chest tube, output has been noted and it's in the order of overnight 80 mL overnight and 400 mL over the past 24 hours in the mediastinal chest tube, 6 disease overnight and 400 mL over the past 24 hours in the left pleural chest tube. [place] catheter still in place. The cardiac output is currently at 4.3 with an index of 2.0. The PA diastolic is in the order of extreme millimeters of mercury. The patient otherwise has normal renal function. Creatinine is at 0.6. Sodium is at 136. She is obviously n othing by mouth at this point in time as the patient is BiPAP dependent. Cardiac rhythm is still sinus and the patient remains on amiodarone. She remains on aspirin and Plavix. Routine postoperative care is being implemented this point in time. Insulin drip is off and the patient is currently on slice K coverage every 4 hours. 02/26/2022, I'm seeing the patient for a follow-up. The patient is postop day #3. Note that after a successful extubation, the patient was placed on a BiPAP because of ongoing hypoxic respiratory failure. The patient stayed on BiPAP throughout the day yesterday and this morning the patient remains on a BiPAP. Current BiPAP settings of 12/5 with an FiO2 of 80%. While in the BiPAP, the patient is urinating a tidal volume of about 450 with a respiratory rate in the mid 20s and a minute ventilation of 13 L per minute. The chest x-ray showing some further investigation right lung base. Based on that, an ultrasound of the chest was done and there was minimal amount of pleural effusion the right lung base and I think the predominant findings are significant atelectasis in the lung bases right more than left. Note that the chest tubes were all removed ye sterday and the patient the left pleural and mediastinal chest tube both of them removed. Morning blood gases showed a pH of 7.49 with a pCO2 of 33 and pO2 of 60. The patient's FiO2 is currently at 80% on the BiPAP and she is pulse oxing 95%. I dropped her down to 60%. Meanwhile, the pro-calcitonin level obtained yesterday was low at 0.18. The patient was being diuresis with IV Lasix and input output balance has been negative for on 22 mL over the past 24 hours and the patient was taken off the dopamine. The the white cell count is slightly higher compared to yesterday. He 0.9 with a hemoglobin of 10.2 and a platelet count of 266. Sodium is at 135 with a BUN of 30 and creatinine 0.6. The patient is awake. The patient is alert. She is following commands and moving extremities. She is currently on examination aspirin and Plavix. She is also on metoprolol 25 mg by mouth 3 times a day. Cardiac rhythm was sinus and later on she did have a epidural of atrial fibrillation. There is being managed by the cardiothoracic team. The patient will be started back on amiodarone bolus and maintenance. No pressors for now. 02/27/2022, the patient is postop day #4. The patient continues to have diffuse but the pulmonary infiltrates with hypoxic respiratory failure that occurred p ost extubation. The patient remains on a BiPAP at a pressure of 10/5 cm of water with an FiO2 of 70%. Current pulse ox is around 96%. She is a bit disturbed by the BiPAP and she wants to give herself a break. She is urinating adequate tidal volumes above 700 mL an minute ventilation remains quite elevated. The chest x-ray shows small lung volumes, atelectatic changes in lung bases with diffuse breath and pulmonary infiltrates. She has also cardiomegaly. All of the chest tubes are removed. The patient is afebrile. White cell count remains elevated at 19. The patient is producing adequate amount of urine output. The patient is on IV Lasix and overall fluid balance over the past 24 h ours shows that she has been in a negative fluid balance in the urine output is adequate. Input output over the past 24 hours has been in the order of -1.2 L. Otherwise, the rest of the blood work shows a white cell count of 19.2 with a hemoglobin of 10.8 and a platelet count of 375. BUN is 42 with a creatinine of 0.69 the sodium level is at 138 with a potassium level of 4.1. As mentioned, the ultrasound of the chest was done yesterday and there was no evidence of any significant sizable pleural effusion. The chest x-ray from today shows a small right-sided pleural effusion, cardiomegaly along with diffuse breath and pulmonary infiltrates. The patient also had an episode of atrial fibrillation with rapid ventricular response. She was given amiodarone bolus and currently she is on amiodarone at a dose of 400 mg by mouth twice a day. Her current cardiac rhythm is back to sinus. 2021, the patient is postop day #5. The patient is sitting up on a chair. The patient is currently unable to 60 L with an FiO2 of 90%. Chest x-ray essentially unchanged. There is cardiomegaly. There is extensive atelectatic changes with small effusions bilaterally. The patient is currently off the BiPAP. Denies having any significant respiratory distress. Using incentive spirometer and the patient is pulling approximately 7 50 mL. Hemodynamically, she is on no pressors. She is stable. Her cardiac rhythm is sinus and there is no further episodes of atrial fibrillation since yesterday. The overall input output fluid balance has been -1.2 L in the urine output and 95 to on 35 mL over the past 8 hours. The patient has no specific complaints. Surgical with that is dry clean and intact. The white cell count is slightly lower compared to yesterday down to 17 with a hemoglobin of 10.5 and a platelet count of 354. Sodium is at 140 with a mean of 51 acute creatinine of 0.6. Chest x-ray was noted. The patient is currently on empiric antibiotic coverage with a combination of cefepime and vancomycin. A limited ultrasound that was done at the bedside revealed no significant pleural effusion on the right. There is cardiomegaly and there is some consented the patient may have a underlying pericardial effusion. 03/01/2022 the patient is postop day #6. She is still recovering from her acute hypoxic respiratory failure which we believe is in acute lung injury post bypass surgery. Possibility of pneumonia is also contemplated and the patient is covered empirically with IV antibiotics. She is showing ongoing aggressive improvement. Her breathing is less labored. The chest x-ray from today shows improvement in aeration the right lung base. She remains on Arava at 60 L of FiO2 being down to 60%. She is using incentive spirometer. No diuretics for now. Cardiac rhythm is bouncing back and forth between normal sinus rhythm and atrial fibrillation. She is on no anticoagulants for now. Her blood work shows a hemoglobin of 10.2 with a white cell count improving down to 12.5 and a BNP is at 50 with a creatinine of 0.7 and sodium level is at 140 with a glucose of 123. LFTs are normal. Slightly elevated and AST/ALT. Chest x-ray was noted. On the incentive spirometer, she is pulling approximately thousand. Urine output is adequate for now in the order of 500 mL over the past 8 hours. No focal neurological deficits. Objective - Vital Signs Vital signs: Vital Signs Temp 98.2 F 03/01/22 08:00 Pulse 63 03/01/22 08:00 Resp 20 03/01/22 08:00 BP 129/86 03/01/22 08:00 Pulse Ox 98 03/01/22 08:00 FiO2 60 03/01/22 08:00 Intake & Output 02/28/22 03/01/22 03/01/22 18:59 06:59 18:59 Intake Total 1180 600 340 Output Total 290 550 0 Balance 890 50 340 Weight 109.4 kg Intake: IV 500 600 100 Cefepime 2 gm In Sodium 100 100 Chloride 0.9% 100 ml @ 25 mls/hr IVPB Q8HR [facility] Rx# :[id number] Vancomycin 2,000 mg In 500 500 Sodium Chloride 0.9% 500 ml 500 ml @ 167 mls/hr IVPB Q12H [facility] Rx#: [id number] Intake, IV Titration 200 Amount Cefepime 2 gm In Sodium 200 Chloride 0.9% 100 ml @ 25 mls/hr IVPB Q8HR [facility] Rx# :[id number] Oral 480 240 Output: Urine 290 550 0 Other: Voiding Method External Catheter External Catheter Bedside Commode External Catheter # Voids 0 ABP, PAP, CO, CI - Last Documented Arterial Blood Pressure 281/281 Pulmonary Artery Pressure 43/24 Cardiac Output 4 Cardiac Index 1.9 - Exam CONSTITUTIONAL: Appears comfortable, cooperative, no acute distress mild currently on a Airvo, 60 L with an FiO2 of 60% Breathing is nonlabored and the patient is comfortable sitting up on a chair. RESPIRATORY: Lungs sounds diminished bilaterally, right greater than left. Marked diminished breath on the right lung base CARDIOVASCULAR: S1, S2 present. Regular rate and rhythm, sinus rhythm on telemetry. Sternum stable. Palpable peripheral pulses bilaterally. Trace generalized edema present. No calf pain or tenderness noted. Heart hugger in place with patient demonstrating appropriate use. Antiembolism stockings, SCDs present. GASTROINTESTINAL: Abdomen soft, nontender, nondistended. Active bowel sounds present 4 quadrants, tympanic to percussion. Tolerating liquids for medications. Denies flatus GENITOURINARY: Boss present draining cloudy, yellow urine. Output overnight is in order of 30-40 mL an hour INTEGUMENTARY: Skin is warm and dry with evidence of good perfusion. Anterior chest incision well approximated and covered with dry intact dressing. Right lower extremity EVH site well approximated without redness or drainage. NEUROLOGIC: Cranial nerves II through XII intact MUSKULOSKELETAL: Able to move all extremities, strength equal bilaterally PSYCHIATRIC: Alert and oriented to person place and time, appropriate affect, intact judgment and insight INVASIVE LINES AND TUBES: All of the lines have been removed - Labs CBC & Chem 7: 03/01/22 07:35 03/01/22 07:35 Labs: Abnormal Lab Results - Last 24 Hours (Table) 02/28/22 02/28/22 02/28/22 Range/Units 11:44 16:35 20:33 WBC (3.8-10.6) k/uL RBC (3.80-5.40) m/uL Hgb (11.4-16.0) gm/dL Hct (34.0-46.0) % Neutrophils # (1.3-7.7) k/uL Lymphocytes # (1.0-4.8) k/uL Chloride (98-107) mmol/L BUN (7-17) mg/dL Glucose (74-99) mg/dL POC Glucose (mg/dL) 215 H 143 H 123 H (70-110) mg/dL AST (14-36) U/L ALT (4-34) U/L Alkaline Phosphatase (38-126) U/L Total Protein (6.3-8.2) g/dL Albumin (3.5-5.0) g/dL 02/28/22 03/01/22 03/01/22 Range/Units 23:48 04:20 07:35 WBC (3.8-10.6) k/uL RBC (3.80-5.40) m/uL Hgb (11.4-16.0) gm/dL Hct (34.0-46.0) % Neutrophils # (1.3-7.7) k/uL Lymphocytes # (1.0-4.8) k/uL Chloride 108 H (98-107) mmol/L BUN 50 H (7-17) mg/dL Glucose 123 H (74-99) mg/dL POC Glucose (mg/dL) 118 H 114 H (70-110) mg/dL AST 62 H (14-36) U/L ALT 78 H (4-34) U/L Alkaline Phosphatase 176 H (38-126) U/L Total Protein 5.8 L (6.3-8.2) g/dL Albumin 3.4 L (3.5-5.0) g/dL 03/01/22 Range/Units 07:35 WBC 12.5 H (3.8-10.6) k/uL RBC 3.39 L (3.80-5.40) m/uL Hgb 10.2 L (11.4-16.0) gm/dL Hct 31.1 L (34.0-46.0) % Neutrophils # 10.9 H (1.3-7.7) k/uL Lymphocytes # 0.6 L (1.0-4.8) k/uL Chloride (98-107) mmol/L BUN (7-17) mg/dL Glucose (74-99) mg/dL POC Glucose (mg/dL) (70-110) mg/dL AST (14-36) U/L ALT (4-34) U/L Alkaline Phosphatase (38-126) U/L Total Protein (6.3-8.2) g/dL Albumin (3.5-5.0) g/dL Assessment and Plan Plan: Symptomatic coronary disease, post coronary artery bypass surgery 2, off-pump and the patient is postop day #6. The patient is post intra-aortic balloon pump insertion for hemodynamic support inserted at a time of surgery was subsequently removed and the patient remains hemodynamically stable. Note that the patient was extubated without any major difficulties and over the past 12 hours, and since then, the patient has developed diffuse but the pulmonary infiltrates 60%. Suspect post surgical ARDS. There is also some atelectatic changes in lung bases bilaterally contributing to this patient's hypoxic respiratory failure. Bedside ultrasound was done revealing no evidence of any pericardial effusion or pleural effusion and sizable amounts. He continues to improve slowly. Her chest x-ray from today showing some interval improvement in the past in the right lung base and there is improved aeration. There is still diffuse bilateral pulmonary infiltrates. Nevertheless, breathing is less labored and the patient's oxygenation is gradually improving. Post thoracotomy, chest tubes are removed, small right-sided pleural effusion on ultrasound the chest that was conducted yesterday. Less on the right lung base remains diminished and the patient remains on Airvo 60 L an FiO2 of 90% Acute hypoxic history failure, likely due to postsurgical ARDS in addition to extensive atelectatic changes in lung bases more so on the right with a small right-sided pleural effusion. The patient is currently is off the BiPAP and the patient is currently on Airvo extremely liters, 90% Paroxysmal atrial fibrillation, expected outcome of surgery currently in sinus rhythm and the patient is currently on po amiodarone Hyperglycemia, postop, the patient is off IV insulin and the patient is currently on insulin scale coverage History of hypertension. No history of any lung disease, and patient at low increased operative risk based on lung function. Prior history of coronavirus infection, July 2021. Postoperative anemia, expected outcome of surgery, hemoglobin is stable for now Leukocytosis, improving plan Wean down the FiO2 slowly, flow at 50l and wean down the FiO2 down to lower levels to maintain a saturation above 90% on suggest starting at 50% Continue using incentive spirometer Keep antibiotics for another 24 hours No diuretics Continue the prednisone 40 mg by mouth daily Continue beta blockers with metoprolol Diuretics to be stopped today No amiodarone Repeat labs and chest x-ray in the morning We'll continue to follow
--- NOTE | 2022-03-01 11:04 | P.PN ---
Subjective Progress Note Date: 03/01/22 PROGRESS NOTE The patient is a 76-year-old female with history of carotid vascular disease who presented with symptoms of progressive chest discomfort and an abnormal MPI. Underwent cardiac catheterization on the and was found to have severe distal left main disease with [id number] disease in the RCA. She is scheduled to undergo CABG today. Her echo showed an ejection fraction of 50% with mild lateral wall hypokinesis and [id number] mitral regurgitation. She's feeling well this morning, denies any chest discomfort or dizziness. She is in sinus mechanism. Scheduled to undergo CABG this afternoon. She continues to be on aspirin, Lipitor 80 mg daily, isosorbide mononitrate 15 mg daily, lisinopril 30 mg daily, metoprolol succinate 25 mg daily February 24: The patient underwent off-pump CABG yesterday with RAMOS to the LAD and SVG to the OM with ligation of the left atrial appendage and placement of intra-aortic balloon pump because of worsening ischemia at the start of surgery. She had atrial arrhythmia requiring cardioversion earlier. She is extubated, in sinus mechanism, intra-aortic balloon pump at 1:2 with good blood pressure and urinary output. She is on no vasopressor. She is awake, alert and following commands. At the end of the procedure she had a good ejection fraction with mild mitral regurgitation. She continues to be on aspirin, Lipitor 80 mg daily, Plavix 75 mg daily, metoprolol tartrate 12-1/2 mg twice a day. February 25: The patient intra-aortic balloon pump was removed yesterday. She was hypoxemic during the night requiring BiPAP. She denies any chest discomfort. She continues to be in sinus mechanism. She denies any chest discomfort, dizziness or palpitations. She received diuretics yesterday with good output. She continues to be on aspirin, Plavix, low-dose dopamine, metoprolol 12-1/2 mg twice a day, Lipitor 80 mg daily. Her chest x-ray shows bilateral pleural effusion February 26: The patient is awake and alert, continues to be in sinus mechanism, she continues to be on the BiPAP but feels better. Her breathing is stable. She is denying any chest discomfort, dizziness or palpitations. She has no nausea. She has good urinary output. She continues to be on aspirin once a day, amiodarone 400 mg twice a day, Lipitor 80 mg daily, Plavix 75 mg daily, insulin, metoprolol tartrate 25 mg twice a day. Her chest x-ray shows bilateral pleural effusion with mild congestion, she diuresed well yesterday the IV Lasix February 27: The patient continues to be on a BiPAP, hypoxic off of it. She had an episode of atrial fibrillation back in sinus mechanism to be on amiodarone. Her blood pressure is stable and has not required a suppressive. She denies any chest discomfort but she is dyspneic. She has no nausea or vomiting. Her urinary output has been stable. Her chest x-ray shows worsening infiltrate bilaterally. She continues to be on amiodarone 400 mg twice a day, aspirin, Lipitor 80 mg daily, Plavix 75 mg daily, Lasix 20 mg IV every 12 hours, metoprolol tartrate 25 mg 3 times a day February 28: She's feeling better today, sitting up in the chair, she continues to be on high flow during the day but BiPAP during the night. Her blood pressure has been on the higher side. She denies any chest discomfort, dizziness or palpitations. Hemodynamically she is stable, in sinus mechanism. She has a good urinary output. She continues to be on aspirin once a day, Lipitor 80 mg daily, Plavix 75 mg daily, insulin, Zestril 5 mg daily, metoprolol 50 mg twice a day March 01: The patient is feeling better today, her breathing is better she is on airflow, is in sinus mechanism. She denies any chest discomfort, dizziness or palp itations. She denies any nausea or vomiting. She ambulated. She is doing better with the incentive spirometry. Hemodynamically she is stable. She continues to be on aspirin, Plavix 75 mg daily, Lipitor 80 mg daily, lisinopril 10 mg twice a day, metoprolol 50 mg twice a day PHYSICAL EXAMINATION: Blood pressure 129/80 with a heart rate in the 70s LUNGS: Decreased breath sounds at the bases with improvement since yesterday HEART: Regular rate and rhythm, S1, S2. No S3. systolic murmur at the base ABDOMEN: Soft, nontender, no organomegaly EXTREMETIES: No edema, LAB: Pending IMPRESSION: 1. Status post CABG, RAMOS to the LAD and SVG to obtuse marginal branch with known severe left main disease. 2. Post removal of Intra-aortic balloon pump 3. History of hyperlipidemia 4. Hypoxemia with lung congestion, probable lung injury post CABG cannot rule out infection, no significant fluid overload 5. Hypertension PLAN: 1. Continue present therapy 2. Follow blood pressure 3. If having further episodes of atrial fibrillation, persistent require anticoagulation 4. Increase physical activity Objective - Vital Signs Vital signs: Vital Signs Temp 98.2 F 03/01/22 08:00 Pulse 82 03/01/22 10:44 Resp 20 03/01/22 08:00 BP 129/86 03/01/22 08:00 Pulse Ox 98 03/01/22 08:00 FiO2 50 03/01/22 10:44 Intake & Output 02/28/22 03/01/22 03/01/22 18:59 06:59 18:59 Intake Total 1180 600 340 Output Total 290 550 0 Balance 890 50 340 Weight 109.4 kg Intake: IV 500 600 100 Cefepime 2 gm In Sodium 100 100 Chloride 0.9% 100 ml @ 25 mls/hr IVPB Q8HR [facility] Rx# :[id number] Vancomycin 2,000 mg In 500 500 Sodium Chloride 0.9% 500 ml 500 ml @ 167 mls/hr IVPB Q12H [facility] Rx#: [id number] Intake, IV Titration 200 Amount Cefepime 2 gm In Sodium 200 Chloride 0.9% 100 ml @ 25 mls/hr IVPB Q8HR [facility] Rx# :[id number] Oral 480 240 Output: Urine 290 550 0 Other: Voiding Method External Catheter External Catheter Bedside Commode External Catheter # Voids 0 ABP, PAP, CO, CI - Last Documented Arterial Blood Pressure 281/281 Pulmonary Artery Pressure 43/24 Cardiac Output 4 Cardiac Index 1.9 - Labs CBC & Chem 7: 03/01/22 07:35 03/01/22 07:35 Labs: Abnormal Lab Results - Last 24 Hours (Table) 02/28/22 02/28/22 02/28/22 Range/Units 11:44 16:35 20:33 WBC (3.8-10.6) k/uL RBC (3.80-5.40) m/uL Hgb (11.4-16.0) gm/dL Hct (34.0-46.0) % Neutrophils # (1.3-7.7) k/uL Lymphocytes # (1.0-4.8) k/uL Chloride (98-107) mmol/L BUN (7-17) mg/dL Glucose (74-99) mg/dL POC Glucose (mg/dL) 215 H 143 H 123 H (70-110) mg/dL AST (14-36) U/L ALT (4-34) U/L Alkaline Phosphatase (38-126) U/L Total Protein (6.3-8.2) g/dL Albumin (3.5-5.0) g/dL 02/28/22 03/01/22 03/01/22 Range/Units 23:48 04:20 07:35 WBC (3.8-10.6) k/uL RBC (3.80-5.40) m/uL Hgb (11.4-16.0) gm/dL Hct (34.0-46.0) % Neutrophils # (1.3-7.7) k/uL Lymphocytes # (1.0-4.8) k/uL Chloride 108 H (98-107) mmol/L BUN 50 H (7-17) mg/dL Glucose 123 H (74-99) mg/dL POC Glucose (mg/dL) 118 H 114 H (70-110) mg/dL AST 62 H (14-36) U/L ALT 78 H (4-34) U/L Alkaline Phosphatase 176 H (38-126) U/L Total Protein 5.8 L (6.3-8.2) g/dL Albumin 3.4 L (3.5-5.0) g/dL 03/01/22 Range/Units 07:35 WBC 12.5 H (3.8-10.6) k/uL RBC 3.39 L (3.80-5.40) m/uL Hgb 10.2 L (11.4-16.0) gm/dL Hct 31.1 L (34.0-46.0) % Neutrophils # 10.9 H (1.3-7.7) k/uL Lymphocytes # 0.6 L (1.0-4.8) k/uL Chloride (98-107) mmol/L BUN (7-17) mg/dL Glucose (74-99) mg/dL POC Glucose (mg/dL) (70-110) mg/dL AST (14-36) U/L ALT (4-34) U/L Alkaline Phosphatase (38-126) U/L Total Protein (6.3-8.2) g/dL Albumin (3.5-5.0) g/dL
[2022-03-01 11:06] LABS: Glucose,Whole Blood 202 mg/dL (70-110)
[2022-03-01] MEDS: VANCOMYCIN 2,000 MG in SODIUM CHLORIDE 0.9% 500 ML 500 ML IVPB SCH (11:10)
--- NOTE | 2022-03-01 12:27 | P.PN ---
Subjective Progress Note Date: 03/01/22 HISTORY OF PRESENT ILLNESS This is a pleasant 76 years old female with past medical history of Fibromyal romero, Hyperlipidemia, Hypertension, Osteoarthritis , Supraventricular Tachycardia ,urinary incontinence-wears pad, severe left internal carotid artery stenosis followed by Dr. Fitzgerald, frequent constipation, she was admitted under cardiology service for right arm pain, chest pain and back pain for the last 3 weeks, where she underwent cardiac cath and showing critical and complex lesion involving the distal left main coronary arteries and also involving the ostial left circumflex and the distal LAD with the stenotic range is 80-90% with increase in LVEDP , Patient will need bypass procedure to open his coronary arteries. Currently she denies chest pain or dyspnea. No incontinence of urine or bowel. No fever Patient is hemodynamically stable Labs including CBC, INR, BMP and liver enzymes are unremarkable. TSH is 1.6. Urine analysis showing trace blood. coronavirus not detected. Hepatitis panel is negative Chest x-ray: Minimal interstitial edema noted Carotid duplex: No significant stenosis Echocardiogram showing ejection fraction of 50-55% with [id number] mitral regurgitation and mild tricuspid regurgitation Patient currently on heparin drip, aspirin 81 mg twice a day and normal saline at 75 mL/h as well as Lipitor and metoprolol However patient this morning she is asymptomatic she denies chest pain or dyspnea or abdominal pain. No diarrhea or vomiting or dysuria. No headache or weakness or numbness. 02/23: Patient is denying any chest pain, shortness of breath, palpitations, lightheadedness or dizziness. She is scheduled for CABG this afternoon and patient states that she is ready to move forward. No new concerns from her nurs e. Patient has been afebrile, heart rate 80, blood pressure 129/78 and pulse ox 96% on room air. CBC is unremarkable. Chloride 110, CO2 20, blood sugar 112, creatinine 0.68. 02/24: Patient is status post CABG 2 with left internal mammary artery to the left anterior descending artery, reverse saphenous vein graft to the obtuse marginal artery, ligation of the left atrial appendage with a 40 mm AtriCure clip, endovascular vein harvest of the right greater saphenous vein, placement of intra-aortic balloon pump. Right groin intra-aortic balloon pump was discontinued this morning. Right internal jugular [place], right radial arterial line, mediastinal/left pleural chest tubes remain in place. Patient is stating that she is feeling well. She has been afebrile, heart rate 75, 121/54, pulse ox 93% on 2 L. Capillary blood glucose running between 110 and 120. WBC 9.7, hemoglobin 9.3 and platelet count 195. Electrolytes and renal function normal. AST 85 and ALT 41. 02/25: Patient remains in the intensive care unit. Yesterday pulse ox continued to drop through the day with increased oxygen demands to the point where she is now on BiPAP. She states she feels a little short of breath. She denies Chest pain. Temperature max 100.4, heart rate 76, respiratory rate 32, blood pressure 130/73. groundwater monitoring technician sinus rhythm. Patient is status post IV Lasix yesterday with good urine output. Blood glucose running between 107 and 124 and insulin drip will be discontinued, transition to NovoLog scale every 4 hours. Urinalysis was turbid, blood small. 02/26: Patient remains in the intensive care unit on BiPAP. She has been unable to eat only taking a few sips of water. Chest tubes have been removed, pacer wires to be removed today. Boss catheter is in place, good urine output. Patient has been afebrile, heart rate in the 80s, blood pressure 144/76, pulse ox 90% on FiO2 80 BiPAP. groundwater monitoring technician is sinus rhythm. Repeat blood work reveals WBC 19.9, hemoglobin 10.2, platelet count 266. Sodium 135, BUN 30 creatinine 0.67. AST 83 and ALT 60. Blood sugars running between 123 and 160. Chest x-ray reveals stable. Persistent perihilar and basilar patchy densities bilateral small effusions. Chest ultrasound reveals right pleural effusion 4.9 cm 2.2 cm fluid pocket. 02/27: Patient remains in intensive care unit. She has just been transitioned to AirVo and off BiPAP which she utilized during the night and all day yesterday. Patient converted to atrial fibrillation when we walked into the room. Boss remains in place. We have added in a consult for Dr. Stephenson in anticipation the patient will be ready for discharge to a week. She has been afebrile, heart rate 101, respiratory rate 28, blood pressure 154/81, pulse ox 96% FiO2 of 90. Repeat blood work reveals WBC 19.2, hemoglobin 10.8 and platelet count 375. Electrolytes are normal. Creatinine 0.69. AST is 103 and ALT 95. Coronavirus PCR not detected. Patient has been started on cefepime and IV vancomycin prophylactically per pulmonary recommendations. Pro-calcitonin has been ordered Patient is continued on IV Lasix. 02/28, patient's remains in ICU, still with hypersomnia, nasal CPAP in place, on oral prednisone 40 mg, pulse ox 97%, high flow O2, FiO2 90%, vitals are stable, slightly tachypneic, with some conversations dyspnea, patient is sleeping in the recliner often, has trace edema, melatonin 5 mg started, for sleep buddhist, indwelling Boss catheter, clear urine, with adequate urine output. Patient receiving IV vancomycin and cefepime, chest x-ray, similar airspace opacities and right pleural effusion, similar cardiomegaly, migjht need furosemide, if shortness of breath and the mass was.. Patient remains in sinus rhythm, no new episodes of atrial fibrillation, since the past 24 hours, creatinine 0.6 sodium 140 hemoglobin 10.5 incentive spirometry, and 750 mL capacity 03/01 patient remains in ICU, still with hypersomnolence, was able to sleep well last night in bed, still has nasal CPAP, while drifting off to sleep, no chest pain no shortness of breath, leg swelling is improving, no aspirated events, cardiac seems to be stable, wbc count, 12.5 creatinine 0.77, glucose 123 blood pressure 1:30 to 135 systolic, pulse ox 98%, with 80% FiO2 multiple specialists are following, adequate urine output, REVIEW OF SYSTEMS Constitutional: No fever, no chills, no night sweats. No weight change. Noted weakness, fatigue no lethargy. No daytime sleepiness. EENT: No headache. No blurred vision or double vision, no loss of vision. No loss of Hearing, no ringing in the ears, no dizziness. No nasal drainage or congestion. No epistaxis. No sore throat. Lungs: Minimal shortness of breath, cough, no sputum production. No wheezing. Cardiovascular: Denies chest pain, no lower extremity edema. No palpitations. No paroxysmal nocturnal dyspnea. No orthopnea. No lightheadedness or dizziness. No syncopal episodes. Abdominal: No abdominal pain. No nausea, vomiting. No diarrhea. No constipation. No bloody or tarry stools. No loss of appetite. Genitourinary: No dysuria, increased frequency, urgency. No urinary retention. Musculoskeletal: No myalgias. No muscle weakness, no gait dysfunction, no frequent falls. No back pain. No neck pain. Integumentary: No wounds, no lesions. No rash or pruritus. No unusual bruising. No change in hair or nails. Neurologic: No aphasia. No facial droop. No change in mentation. No head injury. No headache. No paralysis. No paresthesia. Psychiatric: No depression. No anxiety. No mood swings. Endocrine: No abnormal blood sugars. No weight change. No excessive sweating or thirst. PHYSICAL EXAMINATION Gen: This is a 76-year-old overweight female. She is resting in bed and appears to be comfortable and in no acute distress. HEENT: Head is atraumatic, normocephalic. Pupils equal, round. Sclerae is anicteric. NECK: Supple. No JVD. No lymphadenopathy. No thyromegaly. LUNGS: Clear to auscultation. No wheezes or rhonchi. No intercostal retractions. HEART: Regular rate and rhythm. Systolic murmur. ABDOMEN: Soft. Bowel sounds are present. No masses. No tenderness. Boss catheter draining cora urine EXTREMITIES: No calf tenderness. Trace edema bilateral ankles 2+1 edema NEUROLOGICAL: Patient is awake, alert and oriented x3. Cranial nerves 2 through 12 are grossly intact. ASSESSMENT AND PLAN 1. Severe coronary artery disease status post 2 vessel CABG 02/23. Continue current plan per cardiothoracic team. Continue aspirin 325 mg daily, Lipitor 80 mg daily, Plavix 75 mg daily, continue [place] as needed for pain, DuoNeb treatments 4 times daily and as needed, Lopressor increased to 50 mg twice daily. Patient is also been started on cefepime and IV vancomycin, prednisone 40 mg daily. Pro-calcitonin pending. 2. Acute hypoxic respiratory failure. Patient has been on BiPAP, transition to AirVo on 02/27. 3. Worsening bilateral lung infiltrates and small right pleural effusion. Patient has been started on cefepime and IV vancomycin, pro-calcitonin, Lasix 20 g IV every 12 hours. 4. Hypertension. Patient started on lisinopril 5 mg daily, continue Lopressor, hydralazine as needed, Lasix every 12 hours IV 20 mg 5. Hyperlipidemia. Continue atorvastatin. 6. Carotid artery disease. Continue aspirin, atorvastatin. 7. Hyperglycemia. Continue patient on NovoLog scale every 4 hours. 8. New onset paroxysmal atrial fibrillation. Lopressor was increased to 50 mg twice daily. 9. GI prophylaxis. Protonix 40 mg daily 10. DVT prophylaxis. Heparin subcu. DISCHARGE PLAN Most likely a good candidate for inpatient rehab. Consult with Dr. Stephenson. Current Medications Acetaminophen (Acetaminophen Tab 325 Mg Tab) 650 mg PO Q4HR PRN PRN Reason: Fever and/ or Pain Albuterol/Ipratropium (Ipratropium-Albuterol 3 Ml Neb) 3 ml INHALATION RT-Q2H PRN PRN Reason: Shortness Of Breath Or Wheezing Last Admin: 02/26/22 00:45 Dose: 3 ml Albuterol/Ipratropium (Ipratropium-Albuterol 3 Ml Neb) 3 ml INHALATION RT-QID [facility] Last Admin: 03/01/22 10:44 Dose: 3 ml Aspirin (Aspirin 325 Mg Tab) 325 mg PO DAILY [facility] Last Admin: 03/01/22 07:43 Dose: 325 mg Atorvastatin Calcium (Atorvastatin 80 Mg Tab) 80 mg PO DAILY [facility] Stop: 03/23/22 09:01 Last Admin: 03/01/22 07:43 Dose: 80 mg Benzocaine/Menthol (Benzocaine/Menthol Lozeng 1 Each Lozenge) 1 each MUCOUS MEM Q2H PRN PRN Reason: Sore Throat Bisacodyl (Bisacodyl 10 Mg Supp) 10 mg RECTAL DAILY PRN PRN Reason: Constipation Last Admin: 02/28/22 07:57 Dose: 10 mg Clopidogrel Bisulfate (Clopidogrel 75 Mg Tab) 75 mg PO DAILY [facility] Last Admin: 03/01/22 07:44 Dose: 75 mg Heparin Sodium (Porcine) (Heparin Sodium,Porcine/Pf 5,000 Unit/0.5 Ml Syringe) 5,000 unit SQ Q8HR [facility] Last Admin: 03/01/22 07:44 Dose: 5,000 unit Hydralazine HCl (Hydralazine Hcl 20 Mg/Ml 1 Ml Vial) 10 mg IVP Q1H PRN PRN Reason: Blood Pressure - High Last Admin: 03/01/22 03:23 Dose: 10 mg Calcium Gluconate/Sodium (Chloride 2 gm/ IV Solution) 100 mls @ 100 mls/hr IVPB ONCE PRN PRN Reason: Ionized Calcium less than 4.4 Stop: 03/05/22 17:34 Cefepime HCl 2 gm/ Sodium (Chloride) 100 mls @ 25 mls/hr IVPB Q8HR [facility] Last Admin: 03/01/22 07:44 Dose: 25 mls/hr Vancomycin HCl 2,000 mg/ (Sodium Chloride) 500 mls @ 167 mls/hr IVPB Q12H [facility] Last Admin: 03/01/22 11:10 Dose: 167 mls/hr Insulin Aspart (Insulin Aspart (Novolog) 100 Unit/Ml Vial) 0 unit SQ Q4H [facility]; Protocol Last Admin: 03/01/22 11:10 Dose: 4 unit Lisinopril (Lisinopril 10 Mg Tab) 10 mg PO BID [facility] Last Admin: 03/01/22 07:43 Dose: 10 mg Magnesium Hydroxide (Magnesium Hydroxide 2,400 Mg/10 Ml Cup) 2,400 mg PO BID PRN PRN Reason: Constipation Last Admin: 03/01/22 06:20 Dose: 2,400 mg Melatonin (Melatonin 5 Mg Tablet) 5 mg PO [facility] Last Admin: 02/28/22 20:55 Dose: 5 mg Metoclopramide HCl (Metoclopramide 5 Mg/Ml 2 Ml Vial) 10 mg IVP Q4H PRN PRN Reason: Nausea And Vomiting Last Admin: 02/25/22 06:57 Dose: 10 mg Metoprolol Tartrate (Metoprolol Tartrate 50 Mg Tab) 50 mg PO BID [facility] Last Admin: 03/01/22 06:58 Dose: 50 mg Miscellaneous Information (Potassium Replacement Protocol 1 Each Misc) 1 each MISCELLANE DAILY PRN; Protocol PRN Reason: Per Protocol Miscellaneous Information (Magnesium Replacement Protocol 1 Each Misc) 1 each MISCELLANE DAILY PRN; Protocol PRN Reason: Per Protocol Ondansetron HCl (Ondansetron 4 Mg/2 Ml Vial) 4 mg IVP Q6HR PRN PRN Reason: Nausea And Vomiting Last Admin: 02/23/22 22:57 Dose: 4 mg Pantoprazole Sodium (Pantoprazole 40 Mg Tablet) 40 mg PO AC-BRKFST [facility] Last Admin: 03/01/22 06:20 Dose: 40 mg Prednisone (Prednisone 20 Mg Tab) 40 mg PO DAILY [facility] Last Admin: 03/01/22 07:43 Dose: 40 mg Senna/Docusate Sodium (Sennosides-Docusate Sodium 1 Each Tab) 2 each PO HS [facility] Last Admin: 02/28/22 20:55 Dose: 2 each Sodium Chloride (Sodium Chloride 0.9% Flush 10 Ml Syringe) 10 ml IV BID [facility] Last Admin: 03/01/22 08:17 Dose: Not Given Laboratory Results - Last 24 Hours 02/28/22 02/28/22 02/28/22 16:35 20:33 23:48 WBC RBC Hgb Hct MCV MCH MCHC RDW Plt Count MPV Neutrophils % Lymphocytes % Monocytes % Eosinophils % Basophils % Neutrophils # Lymphocytes # Monocytes # Eosinophils # Basophils # Hypochromasia Sodium Potassium Chloride Carbon Dioxide Anion Gap BUN Creatinine Est GFR (CKD-EPI)AfAm Est GFR (CKD-EPI)NonAf Glucose POC Glucose (mg/dL) 143 H 123 H 118 H POC Glu Litigation Manager ID Jodi Wall Daniel Rich, Daniel Calcium Total Bilirubin AST ALT Alkaline Phosphatase Total Protein Albumin Vancomycin Trough 03/01/22 03/01/22 03/01/22 04:20 07:35 07:35 WBC 12.5 H RBC 3.39 L Hgb 10.2 L Hct 31.1 L MCV 91.7 MCH 29.9 MCHC 32.6 RDW 15.2 Plt Count 366 MPV 7.6 Neutrophils % 87 Lymphocytes % 5 Monocytes % 6 Eosinophils % 0 Basophils % 0 Neutrophils # 10.9 H Lymphocytes # 0.6 L Monocytes # 0.7 Eosinophils # 0.0 Basophils # 0.0 Hypochromasia Slight Sodium 140 Potassium 4.2 Chloride 108 H Carbon Dioxide 23 Anion Gap 9 BUN 50 H Creatinine 0.77 Est GFR (CKD-EPI)AfAm 87 Est GFR (CKD-EPI)NonAf 76 Glucose 123 H POC Glucose (mg/dL) 114 H POC Glu Litigation Manager ID Patricio Moranel Calcium 8.4 Total Bilirubin 0.9 AST 62 H ALT 78 H Alkaline Phosphatase 176 H Total Protein 5.8 L Albumin 3.4 L Vancomycin Trough 03/01/22 03/01/22 07:35 11:05 WBC RBC Hgb Hct MCV MCH MCHC RDW Plt Count MPV Neutrophils % Lymphocytes % Monocytes % Eosinophils % Basophils % Neutrophils # Lymphocytes # Monocytes # Eosinophils # Basophils # Hypochromasia Sodium Potassium Chloride Carbon Dioxide Anion Gap BUN Creatinine Est GFR (CKD-EPI)AfAm Est GFR (CKD-EPI)NonAf Glucose POC Glucose (mg/dL) 202 H POC Glu Litigation Manager ID Jodi Wall Calcium Total Bilirubin AST ALT Alkaline Phosphatase Total Protein Albumin Vancomycin Trough 23.6 Vital Signs - 24 hr 02/28/22 02/28/22 02/28/22 13:00 14:00 15:00 Temperature Pulse Rate 84 85 Respiratory 16 9 L 24 Rate Blood Pressure 129/75 135/57 130/68 O2 Sat by Pulse 96 97 98 Oximetry Fraction of Inspired Oxygen (FIO2) 02/28/22 02/28/22 02/28/22 16:00 16:11 16:17 Temperature Pulse Rate 72 68 Respiratory 24 Rate Blood Pressure 131/75 O2 Sat by Pulse 97 Oximetry Fraction of 70 80 Inspired Oxygen (FIO2) 02/28/22 02/28/22 02/28/22 16:25 17:00 18:00 Temperature Pulse Rate 74 71 73 Respiratory 20 24 Rate Blood Pressure 139/75 138/77 O2 Sat by Pulse 95 94 L Oximetry Fraction of Inspired Oxygen (FIO2) 02/28/22 02/28/22 02/28/22 19:00 19:37 19:41 Temperature Pulse Rate 74 106 H Respiratory 27 H Rate Blood Pressure 152/86 O2 Sat by Pulse 95 Oximetry Fraction of 80 Inspired Oxygen (FIO2) 02/28/22 02/28/22 02/28/22 19:50 20:00 21:00 Temperature 97.5 F L Pulse Rate 104 H 92 74 Respiratory 19 26 H Rate Blood Pressure 131/75 161/85 O2 Sat by Pulse 96 96 Oximetry Fraction of 70 Inspired Oxygen (FIO2) 02/28/22 02/28/22 03/01/22 22:00 23:00 00:00 Temperature 97.6 F Pulse Rate 97 62 65 Respiratory 17 16 25 H Rate Blood Pressure 159/93 138/65 153/76 O2 Sat by Pulse 98 98 96 Oximetry Fraction of 70 Inspired Oxygen (FIO2) 03/01/22 03/01/22 03/01/22 00:06 00:09 01:00 Temperature Pulse Rate 64 66 Respiratory 22 26 H Rate Blood Pressure 112/95 O2 Sat by Pulse 96 96 96 Oximetry Fraction of 70 Inspired Oxygen (FIO2) 03/01/22 03/01/22 03/01/22 02:00 03:00 03:39 Temperature Pulse Rate 66 68 Respiratory 24 20 Rate Blood Pressure 164/91 152/93 O2 Sat by Pulse 96 97 96 Oximetry Fraction of 70 Inspired Oxygen (FIO2) 03/01/22 03/01/22 03/01/22 04:00 05:00 06:00 Temperature 97.6 F Pulse Rate 79 85 93 Respiratory 19 19 19 Rate Blood Pressure 168/89 142/67 162/92 O2 Sat by Pulse 98 98 Oximetry Fraction of 70 Inspired Oxygen (FIO2) 03/01/22 03/01/22 03/01/22 07:00 07:12 07:17 Temperature Pulse Rate 66 101 H 125 H Respiratory 15 Rate Blood Pressure 153/90 O2 Sat by Pulse 99 98 Oximetry Fraction of 70 Inspired Oxygen (FIO2) 03/01/22 03/01/22 03/01/22 08:00 09:00 09:30 Temperature 98.2 F Pulse Rate 63 65 Respiratory 20 16 Rate Blood Pressure 129/86 112/62 O2 Sat by Pulse 98 98 Oximetry Fraction of 60 50 Inspired Oxygen (FIO2) 03/01/22 03/01/22 03/01/22 10:15 10:44 10:55 Temperature Pulse Rate 82 82 82 Respiratory 22 Rate Blood Pressure O2 Sat by Pulse 98 Oximetry Fraction of 50 Inspired Oxygen (FIO2) 03/01/22 03/01/22 11:00 11:46 Temperature Pulse Rate 82 Respiratory 17 Rate Blood Pressure 116/72 O2 Sat by Pulse 98 97 Oximetry Fraction of 50 50 Inspired Oxygen (FIO2) Objective - Vital Signs Vital signs: Vital Signs Temp 98.2 F 03/01/22 08:00 Pulse 82 03/01/22 11:00 Resp 17 03/01/22 11:00 BP 116/72 03/01/22 11:00 Pulse Ox 97 03/01/22 11:46 FiO2 50 03/01/22 11:46 Intake & Output 02/28/22 03/01/22 03/01/22 18:59 06:59 18:59 Intake Total 1180 600 340 Output Total 290 550 0 Balance 890 50 340 Weight 109.4 kg Intake: IV 500 600 100 Cefepime 2 gm In Sodium 100 100 Chloride 0.9% 100 ml @ 25 mls/hr IVPB Q8HR [facility] Rx# :[id number] Vancomycin 2,000 mg In 500 500 Sodium Chloride 0.9% 500 ml 500 ml @ 167 mls/hr IVPB Q12H [facility] Rx#: [id number] Intake, IV Titration 200 Amount Cefepime 2 gm In Sodium 200 Chloride 0.9% 100 ml @ 25 mls/hr IVPB Q8HR [facility] Rx# :[id number] Oral 480 240 Output: Urine 290 550 0 Other: Voiding Method External Catheter External Catheter Bedside Commode External Catheter # Voids 0 ABP, PAP, CO, CI - Last Documented Arterial Blood Pressure 281/281 Pulmonary Artery Pressure 43/24 Cardiac Output 4 Cardiac Index 1.9 - Labs CBC & Chem 7: 03/01/22 07:35 03/01/22 07:35 Labs: Abnormal Lab Results - Last 24 Hours (Table) 02/28/22 02/28/22 02/28/22 Range/Units 16:35 20:33 23:48 WBC (3.8-10.6) k/uL RBC (3.80-5.40) m/uL Hgb (11.4-16.0) gm/dL Hct (34.0-46.0) % Neutrophils # (1.3-7.7) k/uL Lymphocytes # (1.0-4.8) k/uL Chloride (98-107) mmol/L BUN (7-17) mg/dL Glucose (74-99) mg/dL POC Glucose (mg/dL) 143 H 123 H 118 H (70-110) mg/dL AST (14-36) U/L ALT (4-34) U/L Alkaline Phosphatase (38-126) U/L Total Protein (6.3-8.2) g/dL Albumin (3.5-5.0) g/dL 03/01/22 03/01/22 03/01/22 Range/Units 04:20 07:35 07:35 WBC 12.5 H (3.8-10.6) k/uL RBC 3.39 L (3.80-5.40) m/uL Hgb 10.2 L (11.4-16.0) gm/dL Hct 31.1 L (34.0-46.0) % Neutrophils # 10.9 H (1.3-7.7) k/uL Lymphocytes # 0.6 L (1.0-4.8) k/uL Chloride 108 H (98-107) mmol/L BUN 50 H (7-17) mg/dL Glucose 123 H (74-99) mg/dL POC Glucose (mg/dL) 114 H (70-110) mg/dL AST 62 H (14-36) U/L ALT 78 H (4-34) U/L Alkaline Phosphatase 176 H (38-126) U/L Total Protein 5.8 L (6.3-8.2) g/dL Albumin 3.4 L (3.5-5.0) g/dL 03/01/22 Range/Units 11:05 WBC (3.8-10.6) k/uL RBC (3.80-5.40) m/uL Hgb (11.4-16.0) gm/dL Hct (34.0-46.0) % Neutrophils # (1.3-7.7) k/uL Lymphocytes # (1.0-4.8) k/uL Chloride (98-107) mmol/L BUN (7-17) mg/dL Glucose (74-99) mg/dL POC Glucose (mg/dL) 202 H (70-110) mg/dL AST (14-36) U/L ALT (4-34) U/L Alkaline Phosphatase (38-126) U/L Total Protein (6.3-8.2) g/dL Albumin (3.5-5.0) g/dL
[2022-03-01 16:29] LABS: Glucose,Whole Blood 119 mg/dL (70-110)
[2022-03-01 19:44] LABS: Glucose,Whole Blood 196 mg/dL (70-110)
[2022-03-01] MEDS: MELATONIN 5 MG TABLET PO SCH ×2 (20:06→20:08)
[2022-03-01] MEDS: SENNOSIDES-DOCUSATE SODIUM 1 EACH TAB PO SCH (20:06)
[2022-03-02 01:39] LABS: Glucose,Whole Blood 126 mg/dL (70-110)
[2022-03-02] MEDS ORDERED: VANCOMYCIN 2,000 MG in SODIUM CHLORIDE 0.9% 500 ML 500 ML IVPB SCH (02:00)
[2022-03-02] MEDS: INSULIN ASPART (NovoLOG) 100 UNIT/ML VIAL SQ SCH ×7 (04:07→23:39)
[2022-03-02 04:14] LABS: Glucose,Whole Blood 112 mg/dL (70-110)
[2022-03-02 06:01] LABS: Basophils % (A) 0 %; Eosinophils % (A) 0 %; HGB 10.3 gm/dL (11.4-16.0); Hypochromasia Slight; Lymphocytes # (A) 0.9 k/uL (1.0-4.8); Lymphocytes % (A) 7 %; MCH 29.6 pg (25.0-35.0); MCHC 32.3 g/dL (31.0-37.0); MCV 91.7 fL (80.0-100.0); Mean Platelet Volume 7.5; Monocytes # (A) 0.9 k/uL (0-1.0); Monocytes % (A) 7 %; Neutrophils # (A) 10.2 k/uL (1.3-7.7); Neutrophils % (A) 84 %; Platelet Count 360 k/uL (150-450); RDW 14.8 % (11.5-15.5); WBC 12.2 k/uL (3.8-10.6)
[2022-03-02 06:20] LABS: Albumin 3.5 g/dL (3.5-5.0); Calcium 8.5 mg/dL (8.4-10.2); Total Bilirubin 0.8 mg/dL (0.2-1.3); Total Protein 5.9 g/dL (6.3-8.2)
[2022-03-02] MEDS: PANTOPRAZOLE 40 MG TABLET PO SCH (06:54)
[2022-03-02] MEDS: METOPROLOL TARTRATE 50 MG TAB PO SCH ×2 (07:10→20:02)
--- NOTE | 2022-03-02 07:35 | XR ---
EXAMINATION TYPE: XR chest 1V portable DATE OF EXAM: 03/02/2022 5:39 AM COMPARISON: Chest radiograph from one day prior. TECHNIQUE: XR chest 1V portable Portable AP radiograph of the chest.. CLINICAL INDICATION:Female, 76 years old with history of Postoperative cardiac surgery; FINDINGS: Lungs/Pleura: No evidence of focal consolidation or pneumothorax. Blunting of the costophrenic angles is present. Pulmonary vascularity: Pulmonary vascular congestion. Heart/mediastinum: Cardiomediastinal silhouette is enlarged and stable. Left atrial appendage occlusi on devices present. Musculoskeletal: No acute osseous pathology. Midline sternotomy wires are noted and stable. IMPRESSION: Stable exam given patient positioning with pulmonary vascular congestion, cardiomegaly and small bila teral pleural effusions.
[2022-03-02] MEDS: ASPIRIN 325 MG TAB PO SCH (07:40)
[2022-03-02] MEDS: lisinopriL 10 MG TAB PO SCH ×2 (07:40→20:02)
[2022-03-02] MEDS: HEPARIN SODIUM,PORCINE/PF 5,000 UNIT/0.5 ML SYRINGE SQ SCH ×3 (07:40→23:41)
[2022-03-02] MEDS: ATORVASTATIN 80 MG TAB PO SCH (07:40)
[2022-03-02] MEDS: CLOPIDOGREL 75 MG TAB PO SCH (07:40)
[2022-03-02] MEDS: predniSONE 20 MG TAB PO SCH (07:41)
[2022-03-02] MEDS: CEFEPIME 2 GM in SODIUM CHLORIDE 0.9% 100 ML IVPB SCH ×3 (07:41→23:41)
--- NOTE | 2022-03-02 07:47 | P.PN ---
Subjective Progress Note Date: 03/02/22 Principal diagnosis: Coronary artery disease with left main disease, unstable angina, atrial arrhythmias. Past medical history significant for hypertension, hyperlipidemia, SVT, left internal carotid artery stenosis, obesity, lifetime nonsmoker, remains unvaccinated against Covid, and family history of coronary artery disease. POD #7 off-pump coronary artery bypass grafting 2 with left internal mammary artery to the left anterior descending coronary artery, reverse saphenous vein graft to the obtuse marginal coronary artery, ligation of the left atrial appendage with a 40 mm AtriCure clip, endovascular vein harvest of the right greater saphenous vein, placement of intra-aortic balloon pump. Postoperative acute blood loss anemia, expected given hemodilution. Acute hypoxic respiratory failure requiring bipap, and Airvo. Currently on oxygen 5 L nasal cannula. Paroxysmal atrial fibrillation, a known common occurrence after cardiac surgery. The patient was seen and examined today 03/02/2022 at her bedside in the intensive care unit. Currently she is sitting up to the bedside chair, is awake, alert, oriented 3 and is in no acute distress. Denies any complaints of pain or shortness of breath at this time. Oxygen has been titrated down to 5 L nasal cannula with oxygen saturations 95%. She is achieving 1000 mL on her incentive spirometry with encouragement. The patient reports she has been up ambulating in the intensive care unit hallway with minimal assistance from nursing and therapy staff. Bedside telemetry showing normal sinus rhythm heart rate 72 BPM. No further episodes of atrial fibrillation. She has been afebrile the last 24 hours and remains on vancomycin and cefepime for empiric antibiotic coverage. Prednisone 40 mg by mouth daily remains in place. She remained hemodynamically stable and is currently on no inotropic pressor support. Overall the patient reports that she feels much improved from a few days ago. The patient continues to void and had 550 mL of urine output in the last 8 hours. Laboratory results this morning show a WBC count continuing to trend down at 12.2, hemoglobin 10.3, hematocrit 32.0, platelets 360, sodium 142, potassium 4.0, BUN 42, creatinine 0.79, glucose 108, AST 49 and ALT 75. Objective - Vital Signs Vital signs: Vital Signs Temp 98 F 03/02/22 04:00 Pulse 72 03/02/22 07:00 Resp 24 03/02/22 07:00 BP 151/79 03/02/22 07:00 Pulse Ox 96 03/02/22 07:27 FiO2 45 03/02/22 04:00 Intake & Output 03/01/22 03/02/22 03/02/22 18:59 06:59 18:59 Intake Total 1540 459 167 Output Total 650 675 0 Balance 890 -216 167 Weight 109.5 kg Intake: IV 700 459 167 Cefepime 2 gm In Sodium 200 125 0 Chloride 0.9% 100 ml @ 25 mls/hr IVPB Q8HR [facility] Rx# :[id number] Vancomycin 2,000 mg In 500 Sodium Chloride 0.9% 500 ml 500 ml @ 167 mls/hr IVPB Q12H [facility] Rx#: [id number] Vancomycin 2,000 mg In 334 167 Sodium Chloride 0.9% 500 ml 500 ml @ 167 mls/hr IVPB Q16H [facility] Rx#: [id number] Oral 840 Output: Urine 650 675 0 Other: Voiding Method Bedside Commode Bedside Commode # Voids 1 0 # Bowel Movements 1 ABP, PAP, CO, CI - Last Documented Arterial Blood Pressure 281/281 Pulmonary Artery Pressure 43/24 Cardiac Output 4 Cardiac Index 1.9 - Exam CONSTITUTIONAL: Currently sitting up to the bedside chair in the intensive care unit. Appears comfortable, cooperative, no acute distress. RESPIRATORY: Lungs sounds diminished bilaterally, right greater than left. Respirations are symmetrical and nonlabored. Currently on 5 L nasal cannula with oxygen saturation 95%. Strong nonproductive cough. Achieving 1000 mL on her incentive spirometry with encouragement. CARDIOVASCULAR: S1, S2 present. Regular rate and rhythm, sinus rhythm on telemetry, heart rate 72 BPM. Sternum stable. Palpable peripheral pulses bilaterally. Trace generalized edema present. No calf pain or tenderness noted. Heart hugger in place with patient demonstrating appropriate use. Antiembolism stockings, SCDs present. GASTROINTESTINAL: Abdomen soft, nontender, nondistended. Active bowel sounds present 4 quadrants. Tolerating diet. Passing flatus. GENITOURINARY: Continues to void with 675 mL of urine output in the last 8 hours. INTEGUMENTARY: Skin is warm and dry with evidence of good perfusion. Midline sternal incision is well approximated and covered with dry intact dressing. Right lower extremity EVH site well approximated without redness or drainage. NEUROLOGIC: Cranial nerves II through XII intact. No focal deficits. MUSKULOSKELETAL: Able to move all extremities, strength equal bilaterally. PSYCHIATRIC: Alert and oriented to person place and time, appropriate affect, intact judgment and insight. - Labs CBC & Chem 7: 03/02/22 05:34 03/02/22 05:34 Labs: Abnormal Lab Results - Last 24 Hours (Table) 03/01/22 03/01/22 03/01/22 Range/Units 07:35 07:35 11:05 WBC 12.5 H (3.8-10.6) k/uL RBC 3.39 L (3.80-5.40) m/uL Hgb 10.2 L (11.4-16.0) gm/dL Hct 31.1 L (34.0-46.0) % Neutrophils # 10.9 H (1.3-7.7) k/uL Lymphocytes # 0.6 L (1.0-4.8) k/uL Chloride 108 H (98-107) mmol/L BUN 50 H (7-17) mg/dL Glucose 123 H (74-99) mg/dL POC Glucose (mg/dL) 202 H (70-110) mg/dL AST 62 H (14-36) U/L ALT 78 H (4-34) U/L Alkaline Phosphatase 176 H (38-126) U/L Total Protein 5.8 L (6.3-8.2) g/dL Albumin 3.4 L (3.5-5.0) g/dL 03/01/22 03/01/22 03/02/22 Range/Units 16:27 19:42 01:36 WBC (3.8-10.6) k/uL RBC (3.80-5.40) m/uL Hgb (11.4-16.0) gm/dL Hct (34.0-46.0) % Neutrophils # (1.3-7.7) k/uL Lymphocytes # (1.0-4.8) k/uL Chloride (98-107) mmol/L BUN (7-17) mg/dL Glucose (74-99) mg/dL POC Glucose (mg/dL) 119 H 196 H 126 H (70-110) mg/dL AST (14-36) U/L ALT (4-34) U/L Alkaline Phosphatase (38-126) U/L Total Protein (6.3-8.2) g/dL Albumin (3.5-5.0) g/dL 03/02/22 03/02/22 03/02/22 Range/Units 04:12 05:34 05:34 WBC 12.2 H (3.8-10.6) k/uL RBC 3.50 L (3.80-5.40) m/uL Hgb 10.3 L (11.4-16.0) gm/dL Hct 32.0 L (34.0-46.0) % Neutrophils # 10.2 H (1.3-7.7) k/uL Lymphocytes # 0.9 L (1.0-4.8) k/uL Chloride 111 H (98-107) mmol/L BUN 42 H (7-17) mg/dL Glucose 108 H (74-99) mg/dL POC Glucose (mg/dL) 112 H (70-110) mg/dL AST 49 H (14-36) U/L ALT 75 H (4-34) U/L Alkaline Phosphatase 162 H (38-126) U/L Total Protein 5.9 L (6.3-8.2) g/dL Albumin (3.5-5.0) g/dL - Imaging and Cardiology Chest x-ray: report reviewed, image reviewed Assessment and Plan Assessment: 1. Coronary artery disease with left main disease, status post 2 vessel CABG 2. Hypertension 3. Hyperlipidemia, cholesterol 182, LDL 122 4. SVT, intraoperative atrial arrhythmias with cardioversion, status post left atrial appendage ligation 5. Left internal carotid artery stenosis 6. Obesity 7. Never smoker, preoperative FEV1 72% of predicted 8. History of covid infection in July 2021, remains unvaccinated against Covid, negative COVID-19 PCR 9. Family history of coronary artery disease 10. Nasal swab positive for MSSA, treated with mupirocin 11. Preserved LV function with mild to moderate mitral regurgitation on transthoracic echocardiogram 12. Acute blood loss anemia 13. Acute hypoxic respiratory failure requiring bipap 14. Leukocytosis, improving 15. Paroxysmal atrial fibrillation, a known common occurrence after cardiac surgery Plan: 1. Continue to maximize medical management with aspirin, Plavix, statin, beta ena and TASHI inhibitor. Will increase metoprolol tartrate as tolerated. 2. Continue to hold amiodarone, due to her respiratory status. No anticoagula tion necessary at this point. 3. Wean O2 as tolerated. Encourage incentive spirometry 10 times every hour while awake. Bronchodilators per pulmonology. 4. Increase activity as tolerated. PT/OT/cardiac rehab following. 5. GI/DVT prophylaxis. 6. Will monitor daily labs and chest x-ray. Electrolyte replacement per protocol. 7. Pain control with current medication regimen. 8. Insulin management per primary care service. Patient is not diabetic, preoperative hemoglobin A1c 5.6%. 9. Continue to record strict accurate intake and output. May bladder scan every 6 hours and when necessary postvoid residual. If greater than 300 mL of urine may straight cath. Daily weights. 10. Continue cefepime 2 g IV piggyback every 8 hours and vancomycin pharmacy to dose per pulmonary/critical care medicine recommendations. 11. Continue Prednisone 40 mg by mouth daily per pulmonary/critical care medicine recommendations. 12. Continue to encourage nutrition and advance diet as tolerated. 13. First postoperative shower today. Then shower daily. 14. Continue to hold diuretics. 15. More recommendations follow based on patient's clinical course. Time with Patient: Greater than 30
[2022-03-02] MEDS: IPRATROPIUM-ALBUTEROL 3 ML NEB INHALATION SCH ×4 (08:08→20:17)
--- NOTE | 2022-03-02 09:22 | P.PN ---
Subjective Progress Note Date: 03/02/22 PROGRESS NOTE The patient is a 76-year-old female with history of carotid vascular disease who presented with symptoms of progressive chest discomfort and an abnormal MPI. Underwent cardiac catheterization on the and was found to have severe distal left main disease with [id number] disease in the RCA. She is scheduled to undergo CABG today. Her echo showed an ejection fraction of 50% with mild lateral wall hypokinesis and [id number] mitral regurgitation. She's feeling well this morning, denies any chest discomfort or dizziness. She is in sinus mechanism. Scheduled to undergo CABG this afternoon. She continues to be on aspirin, Lipitor 80 mg daily, isosorbide mononitrate 15 mg daily, lisinopril 30 mg daily, metoprolol succinate 25 mg daily February 24: The patient underwent off-pump CABG yesterday with RAMOS to the LAD and SVG to the OM with ligation of the left atrial appendage and placement of intra-aortic balloon pump because of worsening ischemia at the start of surgery. She had atrial arrhythmia requiring cardioversion earlier. She is extubated, in sinus mechanism, intra-aortic balloon pump at 1:2 with good blood pressure and urinary output. She is on no vasopressor. She is awake, alert and following commands. At the end of the procedure she had a good ejection fraction with mild mitral regurgitation. She continues to be on aspirin, Lipitor 80 mg daily, Plavix 75 mg daily, metoprolol tartrate 12-1/2 mg twice a day. February 25: The patient intra-aortic balloon pump was removed yesterday. She was hypoxemic during the night requiring BiPAP. She denies any chest discomfort. She continues to be in sinus mechanism. She denies any chest discomfort, dizziness or palpitations. She received diuretics yesterday with good output. She continues to be on aspirin, Plavix, low-dose dopamine, metoprolol 12-1/2 mg twice a day, Lipitor 80 mg daily. Her chest x-ray shows bilateral pleural effusion February 26: The patient is awake and alert, continues to be in sinus mechanism, she continues to be on the BiPAP but feels better. Her breathing is stable. She is denying any chest discomfort, dizziness or palpitations. She has no nausea. She has good urinary output. She continues to be on aspirin once a day, amiodarone 400 mg twice a day, Lipitor 80 mg daily, Plavix 75 mg daily, insulin, metoprolol tartrate 25 mg twice a day. Her chest x-ray shows bilateral pleural effusion with mild congestion, she diuresed well yesterday the IV Lasix February 27: The patient continues to be on a BiPAP, hypoxic off of it. She had an episode of atrial fibrillation back in sinus mechanism to be on amiodarone. Her blood pressure is stable and has not required a suppressive. She denies any chest discomfort but she is dyspneic. She has no nausea or vomiting. Her urinary output has been stable. Her chest x-ray shows worsening infiltrate bilaterally. She continues to be on amiodarone 400 mg twice a day, aspirin, Lipitor 80 mg daily, Plavix 75 mg daily, Lasix 20 mg IV every 12 hours, metoprolol tartrate 25 mg 3 times a day February 28: She's feeling better today, sitting up in the chair, she continues to be on high flow during the day but BiPAP during the night. Her blood pressure has been on the higher side. She denies any chest discomfort, dizziness or palpitations. Hemodynamically she is stable, in sinus mechanism. She has a good urinary output. She continues to be on aspirin once a day, Lipitor 80 mg daily, Plavix 75 mg daily, insulin, Zestril 5 mg daily, metoprolol 50 mg twice a day March 01: The patient is feeling better today, her breathing is better she is on airflow, is in sinus mechanism. She denies any chest discomfort, dizziness or palp itations. She denies any nausea or vomiting. She ambulated. She is doing better with the incentive spirometry. Hemodynamically she is stable. She continues to be on aspirin, Plavix 75 mg daily, Lipitor 80 mg daily, lisinopril 10 mg twice a day, metoprolol 50 mg twice a day March 22: The patient is sitting up in the chair him a feels better and lower oxygen supply. Her O2 sats are stable. She is in sinus mechanism. She denies any chest discomfort or dizziness, no nausea or vomiting. Hemodynamically she is stable on no vasopressors. She is using incentive spirometry. No further episodes of atrial fibrillation She continues to be on aspirin, Plavix 75 mg daily, Lipitor 80 mg daily, Zestril 10 mg twice a day, metoprolol 50 mg twice a day PHYSICAL EXAMINATION: Blood pressure 153/69 with a heart rate in the 70s LUNGS: Mild decrease in the breath sounds at the bases HEART: Regular rate and rhythm, S1, S2. No S3. systolic murmur at the base ABDOMEN: Soft, nontender, no organomegaly EXTREMETIES: No edema, LAB: BUN 42, creatinine 0.79, potassium 4.0, hemoglobin 10.3 Pending IMPRESSION: 1. Status post CABG, RAMOS to the LAD and SVG to obtuse marginal branch with known severe left main disease. 2. Post removal of Intra-aortic balloon pump 3. History of hyperlipidemia 4. Hypoxemia with lung congestion, probable lung injury post CABG cannot rule out infection, no significant fluid overload, improved 5. Hypertension remains elevated PLAN: 1. Add Norvasc 2. Increase physical activity 3. Follow blood pressure 4. Continue incentive spirometry Objective - Vital Signs Vital signs: Vital Signs Temp 97.5 F L 03/02/22 08:00 Pulse 70 03/02/22 08:19 Resp 20 03/02/22 08:00 BP 153/69 03/02/22 08:00 Pulse Ox 96 03/02/22 08:00 FiO2 45 03/02/22 04:00 Intake & Output 03/01/22 03/02/22 03/02/22 18:59 06:59 18:59 Intake Total 1540 459 167 Output Total 650 675 0 Balance 890 -216 167 Weight 109.5 kg Intake: IV 700 459 167 Cefepime 2 gm In Sodium 200 125 0 Chloride 0.9% 100 ml @ 25 mls/hr IVPB Q8HR [facility] Rx# :[id number] Vancomycin 2,000 mg In 500 Sodium Chloride 0.9% 500 ml 500 ml @ 167 mls/hr IVPB Q12H [facility] Rx#: [id number] Vancomycin 2,000 mg In 334 167 Sodium Chloride 0.9% 500 ml 500 ml @ 167 mls/hr IVPB Q16H [facility] Rx#: [id number] Oral 840 Output: Urine 650 675 0 Other: Voiding Method Bedside Commode Bedside Commode # Voids 1 0 # Bowel Movements 1 ABP, PAP, CO, CI - Last Documented Arterial Blood Pressure 281/281 Pulmonary Artery Pressure 43/24 Cardiac Output 4 Cardiac Index 1.9 - Labs CBC & Chem 7: 03/02/22 05:34 03/02/22 05:34 Labs: Abnormal Lab Results - Last 24 Hours (Table) 03/01/22 03/01/22 03/01/22 Range/Units 11:05 16:27 19:42 WBC (3.8-10.6) k/uL RBC (3.80-5.40) m/uL Hgb (11.4-16.0) gm/dL Hct (34.0-46.0) % Neutrophils # (1.3-7.7) k/uL Lymphocytes # (1.0-4.8) k/uL Chloride (98-107) mmol/L BUN (7-17) mg/dL Glucose (74-99) mg/dL POC Glucose (mg/dL) 202 H 119 H 196 H (70-110) mg/dL AST (14-36) U/L ALT (4-34) U/L Alkaline Phosphatase (38-126) U/L Total Protein (6.3-8.2) g/dL 03/02/22 03/02/22 03/02/22 Range/Units 01:36 04:12 05:34 WBC (3.8-10.6) k/uL RBC (3.80-5.40) m/uL Hgb (11.4-16.0) gm/dL Hct (34.0-46.0) % Neutrophils # (1.3-7.7) k/uL Lymphocytes # (1.0-4.8) k/uL Chloride 111 H (98-107) mmol/L BUN 42 H (7-17) mg/dL Glucose 108 H (74-99) mg/dL POC Glucose (mg/dL) 126 H 112 H (70-110) mg/dL AST 49 H (14-36) U/L ALT 75 H (4-34) U/L Alkaline Phosphatase 162 H (38-126) U/L Total Protein 5.9 L (6.3-8.2) g/dL 03/02/22 Range/Units 05:34 WBC 12.2 H (3.8-10.6) k/uL RBC 3.50 L (3.80-5.40) m/uL Hgb 10.3 L (11.4-16.0) gm/dL Hct 32.0 L (34.0-46.0) % Neutrophils # 10.2 H (1.3-7.7) k/uL Lymphocytes # 0.9 L (1.0-4.8) k/uL Chloride (98-107) mmol/L BUN (7-17) mg/dL Glucose (74-99) mg/dL POC Glucose (mg/dL) (70-110) mg/dL AST (14-36) U/L ALT (4-34) U/L Alkaline Phosphatase (38-126) U/L Total Protein (6.3-8.2) g/dL
[2022-03-02 11:39] LABS: Glucose,Whole Blood 208 mg/dL (70-110)
[2022-03-02] MEDS: amLODIPine 5 MG TAB PO SCH (12:22)
--- NOTE | 2022-03-02 13:08 | P.PN ---
Subjective Progress Note Date: 03/02/22 This is a patient who had a recent heart catheterization, showing a critical and complex lesion involving the distal left main coronary artery, also, the ostial left circumflex, and ostial LAD. The lesions appear to be in the range of 80- 90%, and the patient was also noted to have elevated left ventricular end- diastolic filling pressures. The patient is currently being evaluated by cardiothoracic surgery for possible bypass grafting. We will reassess to see the patient preoperatively, and evaluate her lung function. The patient is a lifelong nonsmoker. She has no history of lung disease. Based on her FEV1, and her MVV, she was in the low operative risk range. Outpatient medications includ ed amlodipine, aspirin, metoprolol, lisinopril, zinc, vitamin D3, ascorbic acid, lactulose, and indoor. Her only major medical problem is hypertension. She does have a history of previous coronavirus infection and was seen by my partner in July 2021. CBC is completely normal. PTT is 39.7. Sodium 141, potassium 3.7, chlorides 111, CO2 24, BUN 12, creatinine 0.63. Cholesterol was 182. Urine was negative. Testing for coronavirus was negative. Chest x-ray shows mild interstitial edema. Currently she is on room air. Progress note dated 02/22/2022. 76-year-old female we saw yesterday in consultation. The patient has significant coronary disease, involving the left main coronary artery. The patient is apparently going to have open heart surgery one day this week. The exact day has not been decided yet. Clinically, she's. Stable. She is on room air. She is a lifelong nonsmoker. Lung function would suggest that she's at a very low increased operative risk based on her FEV1 and MVV. Labs today show white count of 6.1, with a normal hemoglobin, hematocrit, and platelet count. The patient's PTT is 60.2. Sodium 141, potassium 3.6, chlorides 111, CO2 24, BUN 12, creatinine 0.72. 02/23/2022, the patient is awaiting bypass surgery. The patient is calm and comfortable. No respiratory difficulties whatsoever. She is using incentive spirometer. Her preop FEV1 is order of 72% of predicted. No angina. No palpitations. No chest pain. She is hemodynamically stable at this point in time. She remains on IV heparin. I did introduce myself and I will take care o f this patient postop, managed to ventilator and the necessity pulmonary care following her thoracotomy bypass surgery.no other active issues for now. The patient was sent comes at 6.2 with a hemoglobin 4.5. She is on IV heparin with a PTT of 55. BUN is at 12 with a creatinine 0.6 and the sodium level is at 140. 02/24/2022, I'm seeing the patient for a follow-up. The patient was taken to the operating room yesterday and the patient underwent an off-pump coronary artery bypass surgery with RAMOS to LAD and saphenous vein graft to obtuse marginal. The patient also had a left facial appendage clipping. Estimated blood loss was 400 mL. The patient received a total of 3 L of intraoperative IV fluids. Note that the patient was having issues with hypotension and there was some interval worsening of the mitral regurgitation intraoperatively. At that point, it was decided to insert an intra-aortic balloon pump and this was done through the right common femoral artery. Once the intra-aortic balloon pump was initiated, the patient's hemodynamics improved dramatically. The patient was given a postop echo cardiac exam that showed a mild MR and good ejection fraction. The intra-aortic balloon pump was placed on a one-to-one augmentation and following that the patient was brought into the intensive care unit. The patient subsequently was weaned off the sedation and the patient was extubated without any major difficulties within a few hours. The patient was extubated and the fourth hours after arriving to the ICU. The patient had with good weaning parameters. The patient had a blood gas that showed adequate oxygenation and ventilation. Based on that, the patient was extubated. This morning, the patient remains on oxygen at 6 L per minute nasal cannula. The chest x-ray showing cardiomegaly. The patient is a mediastinal and left pleural chest tube. Output from the chest tubes have been 250 mL from the mediastinum and 280 from the left pleural since surgery. No evidence of any air leak. The chest x-ray shows no evidence of any pneumothorax. Hemodynamically, the patient is currently receiving intra-aortic balloon pump augmentation of 1-2. The patient has adequate cardiac output of 4.3 and an index of 2. She is on no pressors for now. The intra-aortic balloon pump will be removed for now. The patient is stable to systemic adequate blood pressure was the patient being off the balloon pump. Urine output is in order of 20 mL an hour. The patient is a febrile. The patient is awake and following commands thoracic questions appropriately. Pulmonary artery pressures are 38 over 18 mmHg. Lower blood work from work today is showing a sodium of 139, potassium of 4, bicarb of 26, BUN of 14 with a creatinine of 0.6. The white cell count is at 9.7 with a hemoglobin of 9.3 and a platelet count of 195. AST is 85 with an ALT of 60 and alkaline phosphatase of 41. Magnesium level is at 2.1. Note that the patient had a run of atrial fibrillation intraoperatively. The patient was loaded with amiodarone and currently the patient is on 0.5 mg per minute of amiodarone infusion. The patient is in a normal sinus rhythm. The patient is also on an insulin drip running at 2.5 units an hour with adequate blood sugar control. The patient's of lactated Ringer at the rate of 50 mL an hour. As mentioned, awake and alert and the sternum is dry clean and intact. No other issues otherwise for now. Breaks 02/25/2022, I'm seeing the patient for a follow-up. The patient is postop day #2. Note that this patient was extubated successfully without any issues. Subsequently, as of yesterday afternoon, the patient became progressively more hypoxic. Note that during the day, the patient was given IV albumin a total of 750 mL to improve her urine output. This did help and ultimately dopamine was added at renal dose to improve her urine output. Subsequently, she became more hypoxic and the patient became more short of breath and initially she went up to 15 L high flow and later on the patient was placed on a BiPAP. She was kept on BiPAP throughout the night and the patient is currently on a BiPAP at a pressure of 12/5 cm of water and FiO2 of on the percent. She is able to generate tidal volumes above 500. Respiratory rate is in the mid 20s. Her breathing is slightly labored even on the BiPAP, yet she is able to tolerate the machine w ithout any major difficulties and she is awake and alert and she is following commands and answering questions and she is neurologically intact. At the same time, the patient had a blood. This morning that showed a pH of 7.97.49 with a pCO2 of 35 and a pO2 of 55 and this was on FiO2 of 85% and based on that the FiO2 was brought up to 100%. The chest x-ray showing cardiomegaly. There is some infiltration of the right lung and some atelectatic changes in lung bases. There is concern for an evolving right lung pneumonia although this is quite early in the postoperative course. In any rate, the patient is being diuresed for now and the patient is producing adequate amount of urine output. She did have a spike of temperature 100.4 yesterday and currently she is afebrile. The white cell count today is at 12.5 which is comparable to yesterday with a hemoglobin of 9.8 and a platelet count of 192. In terms of the chest tubes, the patient is a mediastinal and left pleural chest tube, output has been noted and it's in the order of overnight 80 mL overnight and 400 mL over the past 24 hours in the mediastinal chest tube, 6 disease overnight and 400 mL over the past 24 hours in the left pleural chest tube. [place]-Chandrakant catheter still in place. The cardiac output is currently at 4.3 with an index of 2.0. The PA diastolic is in the order of extreme millimeters of mercury. The patient otherwise has normal renal function. Creatinine is at 0.6. Sodium is at 136. She is obviously n othing by mouth at this point in time as the patient is BiPAP dependent. Cardiac rhythm is still sinus and the patient remains on amiodarone. She remains on aspirin and Plavix. Routine postoperative care is being implemented this point in time. Insulin drip is off and the patient is currently on slice K coverage every 4 hours. 02/26/2022, I'm seeing the patient for a follow-up. The patient is postop day #3. Note that after a successful extubation, the patient was placed on a BiPAP because of ongoing hypoxic respiratory failure. The patient stayed on BiPAP throughout the day yesterday and this morning the patient remains on a BiPAP. Current BiPAP settings of 12/5 with an FiO2 of 80%. While in the BiPAP, the patient is urinating a tidal volume of about 450 with a respiratory rate in the mid 20s and a minute ventilation of 13 L per minute. The chest x-ray showing some further investigation right lung base. Based on that, an ultrasound of the chest was done and there was minimal amount of pleural effusion the right lung base and I think the predominant findings are significant atelectasis in the lung bases right more than left. Note that the chest tubes were all removed ye sterday and the patient the left pleural and mediastinal chest tube both of them removed. Morning blood gases showed a pH of 7.49 with a pCO2 of 33 and pO2 of 60. The patient's FiO2 is currently at 80% on the BiPAP and she is pulse oxing 95%. I dropped her down to 60%. Meanwhile, the pro-calcitonin level obtained yesterday was low at 0.18. The patient was being diuresis with IV Lasix and input output balance has been negative for on 22 mL over the past 24 hours and the patient was taken off the dopamine. The the white cell count is slightly higher compared to yesterday. He 0.9 with a hemoglobin of 10.2 and a platelet count of 266. Sodium is at 135 with a BUN of 30 and creatinine 0.6. The patient is awake. The patient is alert. She is following commands and moving extremities. She is currently on examination aspirin and Plavix. She is also on metoprolol 25 mg by mouth 3 times a day. Cardiac rhythm was sinus and later on she did have a epidural of atrial fibrillation. There is being managed by the cardiothoracic team. The patient will be started back on amiodarone bolus and maintenance. No pressors for now. 02/27/2022, the patient is postop day #4. The patient continues to have diffuse but the pulmonary infiltrates with hypoxic respiratory failure that occurred p ost extubation. The patient remains on a BiPAP at a pressure of 10/5 cm of water with an FiO2 of 70%. Current pulse ox is around 96%. She is a bit disturbed by the BiPAP and she wants to give herself a break. She is urinating adequate tidal volumes above 700 mL an minute ventilation remains quite elevated. The chest x-ray shows small lung volumes, atelectatic changes in lung bases with diffuse breath and pulmonary infiltrates. She has also cardiomegaly. All of the chest tubes are removed. The patient is afebrile. White cell count remains elevated at 19. The patient is producing adequate amount of urine output. The patient is on IV Lasix and overall fluid balance over the past 24 h ours shows that she has been in a negative fluid balance in the urine output is adequate. Input output over the past 24 hours has been in the order of -1.2 L. Otherwise, the rest of the blood work shows a white cell count of 19.2 with a hemoglobin of 10.8 and a platelet count of 375. BUN is 42 with a creatinine of 0.69 the sodium level is at 138 with a potassium level of 4.1. As mentioned, the ultrasound of the chest was done yesterday and there was no evidence of any significant sizable pleural effusion. The chest x-ray from today shows a small right-sided pleural effusion, cardiomegaly along with diffuse breath and pulmonary infiltrates. The patient also had an episode of atrial fibrillation with rapid ventricular response. She was given amiodarone bolus and currently she is on amiodarone at a dose of 400 mg by mouth twice a day. Her current cardiac rhythm is back to sinus. 2021, the patient is postop day #5. The patient is sitting up on a chair. The patient is currently unable to 60 L with an FiO2 of 90%. Chest x-ray essentially unchanged. There is cardiomegaly. There is extensive atelectatic changes with small effusions bilaterally. The patient is currently off the BiPAP. Denies having any significant respiratory distress. Using incentive spirometer and the patient is pulling approximately 7 50 mL. Hemodynamically, she is on no pressors. She is stable. Her cardiac rhythm is sinus and there is no further episodes of atrial fibrillation since yesterday. The overall input output fluid balance has been -1.2 L in the urine output and 95 to on 35 mL over the past 8 hours. The patient has no specific complaints. Surgical with that is dry clean and intact. The white cell count is slightly lower compared to yesterday down to 17 with a hemoglobin of 10.5 and a platelet count of 354. Sodium is at 140 with a mean of 51 acute creatinine of 0.6. Chest x-ray was noted. The patient is currently on empiric antibiotic coverage with a combination of cefepime and vancomycin. A limited ultrasound that was done at the bedside revealed no significant pleural effusion on the right. There is cardiomegaly and there is some consented the patient may have a underlying pericardial effusion. 03/01/2022 the patient is postop day #6. She is still recovering from her acute hypoxic respiratory failure which we believe is in acute lung injury post bypass surgery. Possibility of pneumonia is also contemplated and the patient is covered empirically with IV antibiotics. She is showing ongoing aggressive improvement. Her breathing is less labored. The chest x-ray from today shows improvement in aeration the right lung base. She remains on Arava at 60 L of FiO2 being down to 60%. She is using incentive spirometer. No diuretics for now. Cardiac rhythm is bouncing back and forth between normal sinus rhythm and atrial fibrillation. She is on no anticoagulants for now. Her blood work shows a hemoglobin of 10.2 with a white cell count improving down to 12.5 and a BNP is at 50 with a creatinine of 0.7 and sodium level is at 140 with a glucose of 123. LFTs are normal. Slightly elevated and AST/ALT. Chest x-ray was noted. On the incentive spirometer, she is pulling approximately thousand. Urine output is adequate for now in the order of 500 mL over the past 8 hours. No focal neurological deficits. 03/02/2022 the patient is postop day #7. Patient is doing well and the patient was taken off the Airvo and the patient is currently on 5 L O2 2 by nasal cannula. She did suffer a post surgical ARDS from which she is gradually recovering pH remains on prednisone 40 mg by mouth daily. She remains on IV cefepime and vancomycin can be discontinued knowing that the antibiotics was essentially hepatic in nature. The patient has no new complaints otherwise for now. The patient has a white cell count of 12.2 with a hemoglobin of 10.3. Electrodes are all within normal limits. No nausea. No vomiting. Using incentive spirometer, pulling approximately 1000 on the I asked. On terms of the renal function, the patient is stable creatinine of 0.7 with a mean of 42. Surgical with that is dry clean and intact. Cardiac rhythm is sinus and the patient is still having on and off episodes of atrial fibrillation. Objective - Vital Signs Vital signs: Vital Signs Temp 98.4 F 03/02/22 12:00 Pulse 86 03/02/22 12:29 Resp 25 H 03/02/22 12:00 BP 125/91 03/02/22 12:00 Pulse Ox 94 L 03/02/22 12:00 FiO2 45 03/02/22 04:00 Intake & Output 03/01/22 03/02/22 03/02/22 18:59 06:59 18:59 Intake Total 1540 459 987 Output Total 650 675 200 Balance 890 -216 787 Weight 109.5 kg Intake: IV 700 459 267 Cefepime 2 gm In Sodium 200 125 100 Chloride 0.9% 100 ml @ 25 mls/hr IVPB Q8HR [facility] Rx# :[id number] Vancomycin 2,000 mg In 500 Sodium Chloride 0.9% 500 ml 500 ml @ 167 mls/hr IVPB Q12H [facility] Rx#: [id number] Vancomycin 2,000 mg In 334 167 Sodium Chloride 0.9% 500 ml 500 ml @ 167 mls/hr IVPB Q16H [facility] Rx#: [id number] Oral 840 720 Output: Urine 650 675 200 Other: Voiding Method Bedside Commode Bedside Commode # Voids 1 0 # Bowel Movements 1 ABP, PAP, CO, CI - Last Documented Arterial Blood Pressure 281/281 Pulmonary Artery Pressure 43/24 Cardiac Output 4 Cardiac Index 1.9 - Exam CONSTITUTIONAL: Appears comfortable, cooperative, no acute distress mild currently on 5 L O2 nasal cannula Breathing is nonlabored and the patient is comfortable sitting up on a chair. RESPIRATORY: Lungs sounds diminished bilaterally, right greater than left. Marked diminished breath on the right lung base CARDIOVASCULAR: S1, S2 present. Regular rate and rhythm, sinus rhythm on telemetry. Sternum stable. Palpable peripheral pulses bilaterally. Trace generalized edema present. No calf pain or tenderness noted. Heart hugger in p lace with patient demonstrating appropriate use. Antiembolism stockings, SCDs present. GASTROINTESTINAL: Abdomen soft, nontender, nondistended. Active bowel sounds present 4 quadrants, tympanic to percussion. Tolerating liquids for medications. Denies flatus GENITOURINARY: Boss present draining cloudy, yellow urine. Output overnight is in order of 30-40 mL an hour INTEGUMENTARY: Skin is warm and dry with evidence of good perfusion. Anterior chest incision well approximated and covered with dry intact dressing. Right lower extremity EVH site well approximated without redness or drainage. NEUROLOGIC: Cranial nerves II through XII intact MUSKULOSKELETAL: Able to move all extremities, strength equal bilaterally PSYCHIATRIC: Alert and oriented to person place and time, appropriate affect, intact judgment and insight INVASIVE LINES AND TUBES: All of the lines have been removed - Labs CBC & Chem 7: 03/02/22 05:34 03/02/22 05:34 Labs: Abnormal Lab Results - Last 24 Hours (Table) 03/01/22 03/01/22 03/02/22 Range/Units 16:27 19:42 01:36 WBC (3.8-10.6) k/uL RBC (3.80-5.40) m/uL Hgb (11.4-16.0) gm/dL Hct (34.0-46.0) % Neutrophils # (1.3-7.7) k/uL Lymphocytes # (1.0-4.8) k/uL Chloride (98-107) mmol/L BUN (7-17) mg/dL Glucose (74-99) mg/dL POC Glucose (mg/dL) 119 H 196 H 126 H (70-110) mg/dL AST (14-36) U/L ALT (4-34) U/L Alkaline Phosphatase (38-126) U/L Total Protein (6.3-8.2) g/dL 03/02/22 03/02/22 03/02/22 Range/Units 04:12 05:34 05:34 WBC 12.2 H (3.8-10.6) k/uL RBC 3.50 L (3.80-5.40) m/uL Hgb 10.3 L (11.4-16.0) gm/dL Hct 32.0 L (34.0-46.0) % Neutrophils # 10.2 H (1.3-7.7) k/uL Lymphocytes # 0.9 L (1.0-4.8) k/uL Chloride 111 H (98-107) mmol/L BUN 42 H (7-17) mg/dL Glucose 108 H (74-99) mg/dL POC Glucose (mg/dL) 112 H (70-110) mg/dL AST 49 H (14-36) U/L ALT 75 H (4-34) U/L Alkaline Phosphatase 162 H (38-126) U/L Total Protein 5.9 L (6.3-8.2) g/dL 03/02/22 Range/Units 11:38 WBC (3.8-10.6) k/uL RBC (3.80-5.40) m/uL Hgb (11.4-16.0) gm/dL Hct (34.0-46.0) % Neutrophils # (1.3-7.7) k/uL Lymphocytes # (1.0-4.8) k/uL Chloride (98-107) mmol/L BUN (7-17) mg/dL Glucose (74-99) mg/dL POC Glucose (mg/dL) 208 H (70-110) mg/dL AST (14-36) U/L ALT (4-34) U/L Alkaline Phosphatase (38-126) U/L Total Protein (6.3-8.2) g/dL Assessment and Plan Plan: Symptomatic coronary disease, post coronary artery bypass surgery 2, off-pump and the patient is postop day # 7. The patient is post intra-aortic balloon pump insertion for hemodynamic support inserted at a time of surgery was subsequently removed and the patient remains hemodynamically stable. Note that the patient was extubated without any major difficulties and over the past 12 hours, and since then, the patient has developed diffuse but the pulmonary infiltrates 60%. Patient sustained a post surgical ARDS/hypoxemic respiratory failure, recovered slowly with medical support and BiPAP support initially and later on Airvo and currently she is on 5 L of O2 nasal cannula. She is on prednisone. Antibiotic coverage is emphatic. Post thoracotomy, chest tubes are removed, small right-sided pleural effusion on ultrasound the chest that was conducted yesterday. Less on the right lung base remains diminished and the patient remains on 5 L O2 nasal cannula and Arava was discontinued Acute hypoxic history failure, likely due to postsurgical ARDS in addition to extensive atelectatic changes in lung bases more so on the right with a small right-sided pleural effusion. The patient is currently is on 5 L O2 nasal cannula Paroxysmal atrial fibrillation, expected outcome of surgery currently in sinus rhythm and the patient is currently on po amiodarone Hyperglycemia, postop, the patient is off IV insulin and the patient is currently on insulin scale coverage History of hypertension. No history of any lung disease, and patient at low increased operative risk based on lung function. Prior history of coronavirus infection, July 2021. Postoperative anemia, expected outcome of surgery, hemoglobin is stable for now Leukocytosis, improving plan Wean down the FiO2 slowly, currently on 5 L Continue using incentive spirometer Stop vancomycin and keep cefepime for now No diuretics Continue the prednisone 40 mg by mouth daily Continue beta blockers with metoprolol Diuretics to be stopped today No amiodarone Repeat labs and chest x-ray in the morning We'll continue to follow
[2022-03-02] MEDS ORDERED: FUROSEMIDE 10 MG/ML 4 ML VIAL IV STA (13:12)
--- NOTE | 2022-03-02 13:15 | P.PN ---
Subjective Progress Note Date: 03/02/22 HISTORY OF PRESENT ILLNESS This is a pleasant 76 years old female with past medical history of Fibromyal romero, Hyperlipidemia, Hypertension, Osteoarthritis , Supraventricular Tachycardia ,urinary incontinence-wears pad, severe left internal carotid artery stenosis followed by Dr. Fitzgerald, frequent constipation, she was admitted under cardiology service for right arm pain, chest pain and back pain for the last 3 weeks, where she underwent cardiac cath and showing critical and complex lesion involving the distal left main coronary arteries and also involving the ostial left circumflex and the distal LAD with the stenotic range is 80-90% with increase in LVEDP , Patient will need bypass procedure to open his coronary arteries. Currently she denies chest pain or dyspnea. No incontinence of urine or bowel. No fever Patient is hemodynamically stable Labs including CBC, INR, BMP and liver enzymes are unremarkable. TSH is 1.6. Urine analysis showing trace blood. coronavirus not detected. Hepatitis panel is negative Chest x-ray: Minimal interstitial edema noted Carotid duplex: No significant stenosis Echocardiogram showing ejection fraction of 50-55% with cauk-or-mxuzlxbw mitral regurgitation and mild tricuspid regurgitation Patient currently on heparin drip, aspirin 81 mg twice a day and normal saline at 75 mL/h as well as Lipitor and metoprolol However patient this morning she is asymptomatic she denies chest pain or dyspnea or abdominal pain. No diarrhea or vomiting or dysuria. No headache or weakness or numbness. 02/23: Patient is denying any chest pain, shortness of breath, palpitations, lightheadedness or dizziness. She is scheduled for CABG this afternoon and patient states that she is ready to move forward. No new concerns from her nurs e. Patient has been afebrile, heart rate 80, blood pressure 129/78 and pulse ox 96% on room air. CBC is unremarkable. Chloride 110, CO2 20, blood sugar 112, creatinine 0.68. 02/24: Patient is status post CABG 2 with left internal mammary artery to the left anterior descending artery, reverse saphenous vein graft to the obtuse marginal artery, ligation of the left atrial appendage with a 40 mm AtriCure clip, endovascular vein harvest of the right greater saphenous vein, placement of intra-aortic balloon pump. Right groin intra-aortic balloon pump was discontinued this morning. Right internal jugular [place], right radial arterial line, mediastinal/left pleural chest tubes remain in place. Patient is stating that she is feeling well. She has been afebrile, heart rate 75, 121/54, pulse ox 93% on 2 L. Capillary blood glucose running between 110 and 120. WBC 9.7, hemoglobin 9.3 and platelet count 195. Electrolytes and renal function normal. AST 85 and ALT 41. 02/25: Patient remains in the intensive care unit. Yesterday pulse ox continued to drop through the day with increased oxygen demands to the point where she is now on BiPAP. She states she feels a little short of breath. She denies Chest pain. Temperature max 100.4, heart rate 76, respiratory rate 32, blood pressure 130/73. radiation monitor sinus rhythm. Patient is status post IV Lasix yesterday with good urine output. Blood glucose running between 107 and 124 and insulin drip will be discontinued, transition to NovoLog scale every 4 hours. Urinalysis was turbid, blood small. 02/26: Patient remains in the intensive care unit on BiPAP. She has been unable to eat only taking a few sips of water. Chest tubes have been removed, pacer wires to be removed today. Boss catheter is in place, good urine output. Patient has been afebrile, heart rate in the 80s, blood pressure 144/76, pulse ox 90% on FiO2 80 BiPAP. radiation monitor is sinus rhythm. Repeat blood work reveals WBC 19.9, hemoglobin 10.2, platelet count 266. Sodium 135, BUN 30 creatinine 0.67. AST 83 and ALT 60. Blood sugars running between 123 and 160. Chest x-ray reveals stable. Persistent perihilar and basilar patchy densities bilateral small effusions. Chest ultrasound reveals right pleural effusion 4.9 cm 2.2 cm fluid pocket. 02/27: Patient remains in intensive care unit. She has just been transitioned to AirVo and off BiPAP which she utilized during the night and all day yesterday. Patient converted to atrial fibrillation when we walked into the room. Boss remains in place. We have added in a consult for Dr. Stephenson in anticipation the patient will be ready for discharge to a week. She has been afebrile, heart rate 101, respiratory rate 28, blood pressure 154/81, pulse ox 96% FiO2 of 90. Repeat blood work reveals WBC 19.2, hemoglobin 10.8 and platelet count 375. Electrolytes are normal. Creatinine 0.69. AST is 103 and ALT 95. Coronavirus PCR not detected. Patient has been started on cefepime and IV vancomycin prophylactically per pulmonary recommendations. Pro-calcitonin has been ordered Patient is continued on IV Lasix. 02/28, patient's remains in ICU, still with hypersomnia, nasal CPAP in place, on oral prednisone 40 mg, pulse ox 97%, high flow O2, FiO2 90%, vitals are stable, slightly tachypneic, with some conversations dyspnea, patient is sleeping in the recliner often, has trace edema, melatonin 5 mg started, for sleep holiness, indwelling Boss catheter, clear urine, with adequate urine output. Patient receiving IV vancomycin and cefepime, chest x-ray, similar airspace opacities and right pleural effusion, similar cardiomegaly, migjht need furosemide, if shortness of breath and the mass was.. Patient remains in sinus rhythm, no new episodes of atrial fibrillation, since the past 24 hours, creatinine 0.6 sodium 140 hemoglobin 10.5 incentive spirometry, and 750 mL capacity 03/01 patient remains in ICU, still with hypersomnolence, was able to sleep well last night in bed, still has nasal CPAP, while drifting off to sleep, no chest pain no shortness of breath, leg swelling is improving, no aspirated events, cardiac seems to be stable, wbc count, 12.5 creatinine 0.77, glucose 123 blood pressure 1:30 to 135 systolic, pulse ox 98%, with 80% FiO2 multiple specialists are following, adequate urine output, , patient's immense nicely, eating breakfast, hypersomnia seems to be improved today, patient has more edema arms and legs today, Lasix 40 mg 1 dose, on 5 L nasal cannula, when not using94% on 5 L and skilled, tachypneic at 25 RR, blood pressure 125/91labs are stable, except for mild transaminitis,and WBCs elevated at 12.2 REVIEW OF SYSTEMS Constitutional: No fever, no chills, no night sweats. No weight change. Noted weakness, fatigue no lethargy. No daytime sleepiness. EENT: No headache. No blurred vision or double vision, no loss of vision. No l oss of Hearing, no ringing in the ears, no dizziness. No nasal drainage or congestion. No epistaxis. No sore throat. Lungs: Minimal shortness of breath, cough, no sputum production. No wheezing. Cardiovascular: Denies chest pain, no lower extremity edema. No palpitations. No paroxysmal nocturnal dyspnea. No orthopnea. No lightheadedness or dizziness. No syncopal episodes. Abdominal: No abdominal pain. No nausea, vomiting. No diarrhea. No constipation. No bloody or tarry stools. No loss of appetite. Genitourinary: No dysuria, increased frequency, urgency. No urinary retention. Musculoskeletal: No myalgias. No muscle weakness, no gait dysfunction, no frequent falls. No back pain. No neck pain. Integumentary: No wounds, no lesions. No rash or pruritus. No unusual bruising. No change in hair or nails. Neurologic: No aphasia. No facial droop. No change in mentation. No head injury. No headache. No paralysis. No paresthesia. Psychiatric: No depression. No anxiety. No mood swings. Endocrine: No abnormal blood sugars. No weight change. No excessive sweating or thirst. PHYSICAL EXAMINATION Gen: This is a 76-year-old overweight female. She is resting in bed and appears to be comfortable and in no acute distress. HEENT: Head is atraumatic, normocephalic. Pupils equal, round. Sclerae is anicteric. NECK: Supple. No JVD. No lymphadenopathy. No thyromegaly. LUNGS: Clear to auscultation. No wheezes or rhonchi. No intercostal retractions. HEART: Regular rate and rhythm. Systolic murmur. ABDOMEN: Soft. Bowel sounds are present. No masses. No tenderness. Boss catheter draining cora urine EXTREMITIES: No calf tenderness. Trace edema bilateral ankles 2+1 edema NEUROLOGICAL: Patient is awake, alert and oriented x3. Cranial nerves 2 through 12 are grossly intact. ASSESSMENT AND PLAN 1. Severe coronary artery disease status post 2 vessel CABG 02/23. Continue current plan per cardiothoracic team. Continue aspirin 325 mg daily, Lipitor 80 mg daily, Plavix 75 mg daily, continue Hendricks as needed for pain, DuoNeb treatments 4 times daily and as needed, Lopressor increased to 50 mg twice daily. Patient is also been started on cefepime and IV vancomycin, prednisone 40 mg daily. Pro-calcitonin pending. 2. Acute hypoxic respiratory failure. Patient has been on BiPAP, transition to AirVo on 02/27. 3. Worsening bilateral lung infiltrates and small right pleural effusion. Patient has been started on cefepime and IV vancomycin, pro-calcitonin, Lasix 20 g IV every 12 hours. 4. Hypertension. Patient started on lisinopril 5 mg daily, continue Lopressor, hydralazine as needed, Lasix every 12 hours IV 20 mg 5. Hyperlipidemia. Continue atorvastatin. 6. Carotid artery disease. Continue aspirin, atorvastatin. 7. Hyperglycemia. Continue patient on NovoLog scale every 4 hours. 8. New onset paroxysmal atrial fibrillation. Lopressor was increased to 50 mg twice daily. 9. GI prophylaxis. Protonix 40 mg daily 10. DVT prophylaxis. Heparin subcu. DISCHARGE PLAN Most likely a good candidate for inpatient rehab. Consult with Dr. Stephenson. Current Medications Acetaminophen (Acetaminophen Tab 325 Mg Tab) 650 mg PO Q4HR PRN PRN Reason: Fever and/ or Pain Albuterol/Ipratropium (Ipratropium-Albuterol 3 Ml Neb) 3 ml INHALATION RT-Q2H PRN PRN Reason: Shortness Of Breath Or Wheezing Last Admin: 02/26/22 00:45 Dose: 3 ml Albuterol/Ipratropium (Ipratropium-Albuterol 3 Ml Neb) 3 ml INHALATION RT-QID [facility] Last Admin: 03/01/22 10:44 Dose: 3 ml Aspirin (Aspirin 325 Mg Tab) 325 mg PO DAILY [facility] Last Admin: 03/01/22 07:43 Dose: 325 mg Atorvastatin Calcium (Atorvastatin 80 Mg Tab) 80 mg PO DAILY [facility] Stop: 03/23/22 09:01 Last Admin: 03/01/22 07:43 Dose: 80 mg Benzocaine/Menthol (Benzocaine/Menthol Lozeng 1 Each Lozenge) 1 each MUCOUS MEM Q2H PRN PRN Reason: Sore Throat Bisacodyl (Bisacodyl 10 Mg Supp) 10 mg RECTAL DAILY PRN PRN Reason: Constipation Last Admin: 02/28/22 07:57 Dose: 10 mg Clopidogrel Bisulfate (Clopidogrel 75 Mg Tab) 75 mg PO DAILY [facility] Last Admin: 03/01/22 07:44 Dose: 75 mg Heparin Sodium (Porcine) (Heparin Sodium,Porcine/Pf 5,000 Unit/0.5 Ml Syringe) 5,000 unit SQ Q8HR [facility] Last Admin: 03/01/22 07:44 Dose: 5,000 unit Hydralazine HCl (Hydralazine Hcl 20 Mg/Ml 1 Ml Vial) 10 mg IVP Q1H PRN PRN Reason: Blood Pressure - High Last Admin: 03/01/22 03:23 Dose: 10 mg Calcium Gluconate/Sodium (Chloride 2 gm/ IV Solution) 100 mls @ 100 mls/hr IVPB ONCE PRN PRN Reason: Ionized Calcium less than 4.4 Stop: 03/05/22 17:34 Cefepime HCl 2 gm/ Sodium (Chloride) 100 mls @ 25 mls/hr IVPB Q8HR [facility] Last Admin: 03/01/22 07:44 Dose: 25 mls/hr Vancomycin HCl 2,000 mg/ (Sodium Chloride) 500 mls @ 167 mls/hr IVPB Q12H [facility] Last Admin: 03/01/22 11:10 Dose: 167 mls/hr Insulin Aspart (Insulin Aspart (Novolog) 100 Unit/Ml Vial) 0 unit SQ Q4H [facility]; P rotocol Last Admin: 03/01/22 11:10 Dose: 4 unit Lisinopril (Lisinopril 10 Mg Tab) 10 mg PO BID [facility] Last Admin: 03/01/22 07:43 Dose: 10 mg Magnesium Hydroxide (Magnesium Hydroxide 2,400 Mg/10 Ml Cup) 2,400 mg PO BID PRN PRN Reason: Constipation Last Admin: 03/01/22 06:20 Dose: 2,400 mg Melatonin (Melatonin 5 Mg Tablet) 5 mg PO HS [facility] Last Admin: 02/28/22 20:55 Dose: 5 mg Metoclopramide HCl (Metoclopramide 5 Mg/Ml 2 Ml Vial) 10 mg IVP Q4H PRN PRN Reason: Nausea And Vomiting Last Admin: 02/25/22 06:57 Dose: 10 mg Metoprolol Tartrate (Metoprolol Tartrate 50 Mg Tab) 50 mg PO BID [facility] Last Admin: 03/01/22 06:58 Dose: 50 mg Miscellaneous Information (Potassium Replacement Protocol 1 Each Misc) 1 each MISCELLANE DAILY PRN; Protocol PRN Reason: Per Protocol Miscellaneous Information (Magnesium Replacement Protocol 1 Each Misc) 1 each MISCELLANE DAILY PRN; Protocol PRN Reason: Per Protocol Ondansetron HCl (Ondansetron 4 Mg/2 Ml Vial) 4 mg IVP Q6HR PRN PRN Reason: Nausea And Vomiting Last Admin: 02/23/22 22:57 Dose: 4 mg Pantoprazole Sodium (Pantoprazole 40 Mg Tablet) 40 mg PO AC-BRKFST [facility] Last Admin: 03/01/22 06:20 Dose: 40 mg Prednisone (Prednisone 20 Mg Tab) 40 mg PO DAILY [facility] Last Admin: 03/01/22 07:43 Dose: 40 mg Senna/Docusate Sodium (Sennosides-Docusate Sodium 1 Each Tab) 2 each PO HS [facility] Last Admin: 02/28/22 20:55 Dose: 2 each Sodium Chloride (Sodium Chloride 0.9% Flush 10 Ml Syringe) 10 ml IV BID [facility] Last Admin: 03/01/22 08:17 Dose: Not Given Abnormal Lab Results 03/01/22 03/01/22 03/02/22 16:27 19:42 01:36 WBC RBC Hgb Hct MCV MCH MCHC RDW Plt Count MPV Neutrophils % Lymphocytes % Monocytes % Eosinophils % Basophils % Neutrophils # Lymphocytes # Monocytes # Eosinophils # Basophils # Hypochromasia Sodium Potassium Chloride Carbon Dioxide Anion Gap BUN Creatinine Est GFR (CKD-EPI)AfAm Est GFR (CKD-EPI)NonAf Glucose POC Glucose (mg/dL) 119 H 196 H 126 H POC Glu Cruise Consultant ID Jodi Wall Daniel Marcath, Daniel Calcium Total Bilirubin AST ALT Alkaline Phosphatase Total Protein Albumin 03/02/22 03/02/22 03/02/22 04:12 05:34 05:34 WBC 12.2 H RBC 3.50 L Hgb 10.3 L Hct 32.0 L MCV 91.7 MCH 29.6 MCHC 32.3 RDW 14.8 Plt Count 360 MPV 7.5 Neutrophils % 84 Lymphocytes % 7 Monocytes % 7 Eosinophils % 0 Basophils % 0 Neutrophils # 10.2 H Lymphocytes # 0.9 L Monocytes # 0.9 Eosinophils # 0.0 Basophils # 0.0 Hypochromasia Slight Sodium 142 Potassium 4.0 Chloride 111 H Carbon Dioxide 22 Anion Gap 9 BUN 42 H Creatinine 0.79 Est GFR (CKD-EPI)AfAm 85 Est GFR (CKD-EPI)NonAf 74 Glucose 108 H POC Glucose (mg/dL) 112 H POC Glu Cruise Consultant ID Steven Babcock Calcium 8.5 Total Bilirubin 0.8 AST 49 H ALT 75 H Alkaline Phosphatase 162 H Total Protein 5.9 L Albumin 3.5 03/02/22 11:38 WBC RBC Hgb Hct MCV MCH MCHC RDW Plt Count MPV Neutrophils % Lymphocytes % Monocytes % Eosinophils % Basophils % Neutrophils # Lymphocytes # Monocytes # Eosinophils # Basophils # Hypochromasia Sodium Potassium Chloride Carbon Dioxide Anion Gap BUN Creatinine Est GFR (CKD-EPI)AfAm Est GFR (CKD-EPI)NonAf Glucose POC Glucose (mg/dL) 208 H POC Glu Cruise Consultant ID Karyn Rolle Calcium Total Bilirubin AST ALT Alkaline Phosphatase Total Protein Albumin Vital Signs - 24 hr 03/01/22 03/01/22 03/01/22 14:00 14:56 15:00 Temperature Pulse Rate 85 85 85 Respiratory 19 29 H Rate Blood Pressure 147/82 145/84 O2 Sat by Pulse 94 L 94 L 94 L Oximetry Fraction of 45 Inspired Oxygen (FIO2) 03/01/22 03/01/22 03/01/22 15:05 15:51 16:00 Temperature 98.4 F Pulse Rate 84 85 Respiratory 22 24 Rate Blood Pressure 146/85 O2 Sat by Pulse 94 L Oximetry Fraction of Inspired Oxygen (FIO2) 03/01/22 03/01/22 03/01/22 17:00 18:00 19:00 Temperature Pulse Rate 87 87 68 Respiratory 22 26 H 27 H Rate Blood Pressure 154/72 143/94 117/83 O2 Sat by Pulse 94 L 96 95 Oximetry Fraction of Inspired Oxygen (FIO2) 03/01/22 03/01/22 03/01/22 19:28 19:43 19:54 Temperature Pulse Rate 70 72 Respiratory 27 H Rate Blood Pressure O2 Sat by Pulse 96 Oximetry Fraction of 45 Inspired Oxygen (FIO2) 03/01/22 03/01/22 03/01/22 20:00 21:00 22:00 Temperature 9738 F H Pulse Rate 70 73 66 Respiratory 19 23 24 Rate Blood Pressure 131/56 156/89 154/92 O2 Sat by Pulse 96 92 L 92 L Oximetry Fraction of 45 Inspired Oxygen (FIO2) 03/01/22 03/01/22 03/01/22 23:00 23:03 23:12 Temperature Pulse Rate 70 Respiratory 28 H 20 Rate Blood Pressure 144/80 O2 Sat by Pulse 92 L Oximetry Fraction of 45 Inspired Oxygen (FIO2) 03/02/22 03/02/22 03/02/22 00:00 01:00 02:00 Temperature 97.4 F L Pulse Rate 63 62 63 Respiratory 21 12 16 Rate Blood Pressure 143/94 126/95 140/80 O2 Sat by Pulse 95 94 L 95 Oximetry Fraction of 45 Inspired Oxygen (FIO2) 03/02/22 03/02/22 03/02/22 03:00 03:19 04:00 Temperature 98 F Pulse Rate 66 67 Respiratory 21 20 Rate Blood Pressure 138/85 151/79 O2 Sat by Pulse 95 95 Oximetry Fraction of 45 45 Inspired Oxygen (FIO2) 03/02/22 03/02/22 03/02/22 05:00 06:00 07:00 Temperature Pulse Rate 70 73 72 Respiratory 22 24 24 Rate Blood Pressure 150/79 161/79 151/79 O2 Sat by Pulse 95 95 96 Oximetry Fraction of Inspired Oxygen (FIO2) 03/02/22 03/02/22 03/02/22 07:27 08:00 08:08 Temperature 97.5 F L Pulse Rate 68 70 Respiratory 29 H Rate Blood Pressure 153/69 O2 Sat by Pulse 96 96 Oximetry Fraction of Inspired Oxygen (FIO2) 03/02/22 03/02/22 03/02/22 08:19 09:00 10:00 Temperature Pulse Rate 70 75 76 Respiratory 30 H 24 Rate Blood Pressure 129/60 147/76 O2 Sat by Pulse 93 L 95 Oximetry Fraction of Inspired Oxygen (FIO2) 03/02/22 03/02/22 03/02/22 11:00 12:00 12:17 Temperature 98.4 F Pulse Rate 65 64 86 Respiratory 23 25 H Rate Blood Pressure 153/84 125/91 O2 Sat by Pulse 93 L 94 L Oximetry Fraction of Inspired Oxygen (FIO2) 03/02/22 12:29 Temperature Pulse Rate 86 Respiratory Rate Blood Pressure O2 Sat by Pulse Oximetry Fraction of Inspired Oxygen (FIO2) Objective - Vital Signs Vital signs: Vital Signs Temp 98.4 F 03/02/22 12:00 Pulse 86 03/02/22 12:29 Resp 25 H 03/02/22 12:00 BP 125/91 03/02/22 12:00 Pulse Ox 94 L 03/02/22 12:00 FiO2 45 03/02/22 04:00 Intake & Output 03/01/22 03/02/22 03/02/22 18:59 06:59 18:59 Intake Total 1540 459 987 Output Total 650 675 200 Balance 890 -216 787 Weight 109.5 kg Intake: IV 700 459 267 Cefepime 2 gm In Sodium 200 125 100 Chloride 0.9% 100 ml @ 25 mls/hr IVPB Q8HR [facility] Rx# :[id number] Vancomycin 2,000 mg In 500 Sodium Chloride 0.9% 500 ml 500 ml @ 167 mls/hr IVPB Q12H [facility] Rx#: [id number] Vancomycin 2,000 mg In 334 167 Sodium Chloride 0.9% 500 ml 500 ml @ 167 mls/hr IVPB Q16H [facility] Rx#: [id number] Oral 840 720 Output: Urine 650 675 200 Other: Voiding Method Bedside Commode Bedside Commode # Voids 1 0 # Bowel Movements 1 ABP, PAP, CO, CI - Last Documented Arterial Blood Pressure 281/281 Pulmonary Artery Pressure 43/24 Cardiac Output 4 Cardiac Index 1.9 - Labs CBC & Chem 7: 03/02/22 05:34 03/02/22 05:34 Labs: Abnormal Lab Results - Last 24 Hours (Table) 03/01/22 03/01/22 03/02/22 Range/Units 16:27 19:42 01:36 WBC (3.8-10.6) k/uL RBC (3.80-5.40) m/uL Hgb (11.4-16.0) gm/dL Hct (34.0-46.0) % Neutrophils # (1.3-7.7) k/uL Lymphocytes # (1.0-4.8) k/uL Chloride (98-107) mmol/L BUN (7-17) mg/dL Glucose (74-99) mg/dL POC Glucose (mg/dL) 119 H 196 H 126 H (70-110) mg/dL AST (14-36) U/L ALT (4-34) U/L Alkaline Phosphatase (38-126) U/L Total Protein (6.3-8.2) g/dL 03/02/22 03/02/22 03/02/22 Range/Units 04:12 05:34 05:34 WBC 12.2 H (3.8-10.6) k/uL RBC 3.50 L (3.80-5.40) m/uL Hgb 10.3 L (11.4-16.0) gm/dL Hct 32.0 L (34.0-46.0) % Neutrophils # 10.2 H (1.3-7.7) k/uL Lymphocytes # 0.9 L (1.0-4.8) k/uL Chloride 111 H (98-107) mmol/L BUN 42 H (7-17) mg/dL Glucose 108 H (74-99) mg/dL POC Glucose (mg/dL) 112 H (70-110) mg/dL AST 49 H (14-36) U/L ALT 75 H (4-34) U/L Alkaline Phosphatase 162 H (38-126) U/L Total Protein 5.9 L (6.3-8.2) g/dL 03/02/22 Range/Units 11:38 WBC (3.8-10.6) k/uL RBC (3.80-5.40) m/uL Hgb (11.4-16.0) gm/dL Hct (34.0-46.0) % Neutrophils # (1.3-7.7) k/uL Lymphocytes # (1.0-4.8) k/uL Chloride (98-107) mmol/L BUN (7-17) mg/dL Glucose (74-99) mg/dL POC Glucose (mg/dL) 208 H (70-110) mg/dL AST (14-36) U/L ALT (4-34) U/L Alkaline Phosphatase (38-126) U/L Total Protein (6.3-8.2) g/dL
[2022-03-02 16:32] VITALS: BMI 37.8
[2022-03-02 16:37] LABS: Glucose,Whole Blood 126 mg/dL (70-110)
[2022-03-02] MEDS: MELATONIN 5 MG TABLET PO SCH (19:40)
[2022-03-02 19:57] LABS: Glucose,Whole Blood 170 mg/dL (70-110)
[2022-03-02] MEDS: SENNOSIDES-DOCUSATE SODIUM 1 EACH TAB PO SCH (20:02)
[2022-03-02 23:38] LABS: Glucose,Whole Blood 116 mg/dL (70-110)
[2022-03-03 03:58] LABS: Glucose,Whole Blood 107 mg/dL (70-110)
[2022-03-03] MEDS: INSULIN ASPART (NovoLOG) 100 UNIT/ML VIAL SQ SCH ×6 (04:05→21:29)
[2022-03-03 05:31] LABS: Basophils % (A) 0 %; Eosinophils # (A) 0.1 k/uL (0-0.7); Eosinophils % (A) 0 %; HCT 32.2 % (34.0-46.0); HGB 10.7 gm/dL (11.4-16.0); Hypochromasia Slight; Lymphocytes % (A) 8 %; MCH 30.6 pg (25.0-35.0); MCHC 33.3 g/dL (31.0-37.0); Mean Platelet Volume 7.4; Monocytes # (A) 0.8 k/uL (0-1.0); Monocytes % (A) 7 %; Neutrophils # (A) 9.9 k/uL (1.3-7.7); Neutrophils % (A) 82 %; Platelet Count 377 k/uL (150-450); RDW 15.2 % (11.5-15.5); WBC 12.1 k/uL (3.8-10.6)
[2022-03-03 05:58] LABS: Albumin 3.5 g/dL (3.5-5.0); Calcium 8.6 mg/dL (8.4-10.2); Potassium 3.6 mmol/L (3.5-5.1); Total Bilirubin 0.8 mg/dL (0.2-1.3); Total Protein 5.7 g/dL (6.3-8.2)
[2022-03-03] MEDS: PANTOPRAZOLE 40 MG TABLET PO SCH (06:33)
[2022-03-03] MEDS ORDERED: POTASSIUM CHLORIDE ER 20 MEQ TAB.ER PO SCH (07:00)
--- NOTE | 2022-03-03 07:26 | XR ---
EXAMINATION TYPE: XR chest 1V portable DATE OF EXAM: 03/03/2022 Comparison: 03/02/2022 Clinical History: 76-year-old female Postoperative cardiac surgery Findings: Median sternotomy wires are present with post-CABG clips the mediastinum. Heart remains enlarged. Int erstitial and vascular densities are similar to slightly increased. Bibasilar opacities and patchy pe rihilar opacities are similar to slightly increased. Prominent external artifacts projecting over the right upper lung. Attention on follow-up. Impression: 1. Continued CHF with interstitial pulmonary edema, similar to slightly worsened. 2. Continued small pleural effusions with prominent adjacent atelectasis and or consolidation, slight ly worsened in the interval. 3. External artifacts projecting at the right upper lung. A line here extends outside of the thoracic wall suggesting external artifact rather than pneumothorax. Attention on follow-up.
[2022-03-03] MEDS: IPRATROPIUM-ALBUTEROL 3 ML NEB INHALATION SCH ×4 (08:02→19:25)
[2022-03-03] MEDS: ASPIRIN 325 MG TAB PO SCH (08:24)
[2022-03-03] MEDS: CEFEPIME 2 GM in SODIUM CHLORIDE 0.9% 100 ML IVPB SCH ×3 (08:24→23:33)
[2022-03-03] MEDS: HEPARIN SODIUM,PORCINE/PF 5,000 UNIT/0.5 ML SYRINGE SQ SCH ×3 (08:24→23:33)
[2022-03-03] MEDS: lisinopriL 10 MG TAB PO SCH (08:24)
[2022-03-03] MEDS: CLOPIDOGREL 75 MG TAB PO SCH (08:24)
[2022-03-03] MEDS: METOPROLOL TARTRATE 50 MG TAB PO SCH ×2 (08:24→21:29)
[2022-03-03] MEDS: predniSONE 20 MG TAB PO SCH (08:24)
[2022-03-03] MEDS: ATORVASTATIN 80 MG TAB PO SCH (08:24)
[2022-03-03] MEDS: amLODIPine 5 MG TAB PO SCH (08:25)
[2022-03-03 08:34] LABS: Glucose,Whole Blood 124 mg/dL (70-110)
[2022-03-03] MEDS ORDERED: VANCOMYCIN TROUGH DUE 1 EACH MISC MISCELLANE ONE (09:00)
--- NOTE | 2022-03-03 09:59 | P.PN ---
Subjective PROGRESS NOTE The patient is a 76-year-old female with history of carotid vascular disease who presented with symptoms of progressive chest discomfort and an abnormal MPI. Underwent cardiac catheterization on the and was found to have severe distal left main disease with [id number] disease in the RCA. She is scheduled to undergo CABG today. Her echo showed an ejection fraction of 50% with mild lateral wall hypokinesis and [id number]-[id number]-uuzfemyt mitral regurgitation. She's feeling well this morning, denies any chest discomfort or dizziness. She is in sinus mechanism. Scheduled to undergo CABG this afternoon. She continues to be on aspirin, Lipitor 80 mg daily, isosorbide mononitrate 15 mg daily, lisinopril 30 mg daily, metoprolol succinate 25 mg daily February 24: The patient underwent off-pump CABG yesterday with RAMOS to the LAD and SVG to the OM with ligation of the left atrial appendage and placement of intra-aortic balloon pump because of worsening ischemia at the start of surgery. She had atrial arrhythmia requiring cardioversion earlier. She is extubated, in sinus mechanism, intra-aortic balloon pump at 1:2 with good blood pressure and urinary output. She is on no vasopressor. She is awake, alert and following commands. At the end of the procedure she had a good ejection fraction with mild mitral regurgitation. She continues to be on aspirin, Lipitor 80 mg daily, Plavix 75 mg daily, metoprolol tartrate 12-1/2 mg twice a day. February 25: The patient intra-aortic balloon pump was removed yesterday. She was hypoxemic during the night requiring BiPAP. She denies any chest discomfort. She continues to be in sinus mechanism. She denies any chest discomfort, dizziness or palpitations. She received diuretics yesterday with good output. She continues to be on aspirin, Plavix, low-dose dopamine, metoprolol 12-1/2 mg twice a day, Lipitor 80 mg daily. Her chest x-ray shows bilateral pleural effusion February 26: The patient is awake and alert, continues to be in sinus mechanism, she continues to be on the BiPAP but feels better. Her breathing is stable. She is denying any chest discomfort, dizziness or palpitations. She has no nausea. She has good urinary output. She continues to be on aspirin once a day, amiodarone 400 mg twice a day, Lipitor 80 mg daily, Plavix 75 mg daily, insulin, metoprolol tartrate 25 mg twice a day. Her chest x-ray shows bilateral pleural effusion with mild congestion, she diuresed well yesterday the IV Lasix February 27: The patient continues to be on a BiPAP, hypoxic off of it. She had an episode of atrial fibrillation back in sinus mechanism to be on amiodarone. Her blood pressure is stable and has not required a suppressive. She denies any chest discomfort but she is dyspneic. She has no nausea or vomiting. Her urinary output has been stable. Her chest x-ray shows worsening infiltrate bilaterally. She continues to be on amiodarone 400 mg twice a day, aspirin, Lipitor 80 mg daily, Plavix 75 mg daily, Lasix 20 mg IV every 12 hours, metoprolol tartrate 25 mg 3 times a day February 28: She's feeling better today, sitting up in the chair, she continues to be on high flow during the day but BiPAP during the night. Her blood pressure has been on the higher side. She denies any chest discomfort, dizziness or palpitations. Hemodynamically she is stable, in sinus mechanism. She has a good urinary output. She continues to be on aspirin once a day, Lipitor 80 mg daily, Plavix 75 mg daily, insulin, Zestril 5 mg daily, metoprolol 50 mg twice a day March 01: The patient is feeling better today, her breathing is better she is on airflow, is in sinus mechanism. She denies any chest discomfort, dizziness or palpitations. She denies any nausea or vomiting. She ambulated. She is doing better with the incentive spirometry. Hemodynamically she is stable. She continues to be on aspirin, Plavix 75 mg daily, Lipitor 80 mg daily, lisinopril 10 mg twice a day, metoprolol 50 mg twice a day March 02: The patient is sitting up in the chair him a feels better and lower oxygen supply. Her O2 sats are stable. She is in sinus mechanism. She denies any rafat st discomfort or dizziness, no nausea or vomiting. Hemodynamically she is stable on no vasopressors. She is using incentive spirometry. No further episodes of atrial fibrillation She continues to be on aspirin, Plavix 75 mg daily, Lipitor 80 mg daily, Zestril 10 mg twice a day, metoprolol 50 mg twice a day 03/03 Patient seen and examined. Patient denies any chest pain or shortness breath. Continue to be in sinus rhythm. Amiodarone has been on hold secondary to prior episode of respiratory distress with amiodarone IV. PHYSICAL EXAMINATION: Vitals reviewed LUNGS: Mild decrease in the breath sounds at the bases HEART: Regular rate and rhythm, S1, S2. No S3. systolic murmur at the base ABDOMEN: Soft, nontender, no organomegaly EXTREMETIES: No edema IMPRESSION: 1. Status post CABG, RAMOS to the LAD and SVG to obtuse marginal branch with known severe left main disease. 2. Status post removal of Intra-aortic balloon pump 3. History of hyperlipidemia 4. Hypoxemia with lung congestion, probable lung injury post CABG cannot rule out infection, no significant fluid overload, improved 5. Hypertension remains elevated 6. Postoperative A. fib, currently sinus rhythm PLAN: Blood pressure remains somewhat elevated. Norvasc was added yesterday. We will increase lisinopril from 10-20 mg twice a day. Patient continues to be in sinus rhythm. Amiodarone has been on hold secondary to respiratory distress previously with IV amiodarone. If patient continues to have episodes of A. fib would consider anticoagulation however at this time continue with aspirin and Plavix. Objective - Vital Signs Vital signs: Vital Signs Temp 97.6 F 03/03/22 08:00 Pulse 72 03/03/22 09:00 Resp 21 03/03/22 09:00 BP 140/70 03/03/22 09:00 Pulse Ox 94 L 03/03/22 09:00 FiO2 45 03/02/22 04:00 Intake & Output 03/02/22 03/03/22 03/03/22 18:59 06:59 18:59 Intake Total 1207 220 65 Output Total 1800 500 650 Balance -593 -280 -585 Weight 109.5 kg 108 kg Intake: IV 367 120 65 Cefepime 2 gm In Sodium 200 25 Chloride 0.9% 100 ml @ 25 mls/hr IVPB Q8HR [facility] Rx# :[id number] Lactated Ringers 1,000 ml 120 40 @ 20 mls/hr IV .Q24H [facility] Rx#:[id number] Vancomycin 2,000 mg In 167 Sodium Chloride 0.9% 500 ml 500 ml @ 167 mls/hr IVPB Q16H [facility] Rx#: [id number] Intake, IV Titration 100 Amount Cefepime 2 gm In Sodium 100 Chloride 0.9% 100 ml @ 25 mls/hr IVPB Q8HR [facility] Rx# :[id number] Oral 840 Output: Urine 1800 500 650 Other: Voiding Method Bedside Commode Bedside Commode Bedside Commode # Voids 0 1 ABP, PAP, CO, CI - Last Documented Arterial Blood Pressure 281/281 Pulmonary Artery Pressure 43/24 Cardiac Output 4 Cardiac Index 1.9 - Labs CBC & Chem 7: 03/03/22 05:11 03/03/22 05:11 Labs: Abnormal Lab Results - Last 24 Hours (Table) 03/02/22 03/02/22 03/02/22 Range/Units 11:38 16:35 19:56 WBC (3.8-10.6) k/uL RBC (3.80-5.40) m/uL Hgb (11.4-16.0) gm/dL Hct (34.0-46.0) % Neutrophils # (1.3-7.7) k/uL Chloride (98-107) mmol/L BUN (7-17) mg/dL Glucose (74-99) mg/dL POC Glucose (mg/dL) 208 H 126 H 170 H (70-110) mg/dL AST (14-36) U/L ALT (4-34) U/L Alkaline Phosphatase (38-126) U/L Total Protein (6.3-8.2) g/dL 03/02/22 03/03/22 03/03/22 Range/Units 23:36 05:11 05:11 WBC 12.1 H (3.8-10.6) k/uL RBC 3.50 L (3.80-5.40) m/uL Hgb 10.7 L (11.4-16.0) gm/dL Hct 32.2 L (34.0-46.0) % Neutrophils # 9.9 H (1.3-7.7) k/uL Chloride 108 H (98-107) mmol/L BUN 31 H (7-17) mg/dL Glucose 105 H (74-99) mg/dL POC Glucose (mg/dL) 116 H (70-110) mg/dL AST 43 H (14-36) U/L ALT 66 H (4-34) U/L Alkaline Phosphatase 146 H (38-126) U/L Total Protein 5.7 L (6.3-8.2) g/dL 03/03/22 Range/Units 08:32 WBC (3.8-10.6) k/uL RBC (3.80-5.40) m/uL Hgb (11.4-16.0) gm/dL Hct (34.0-46.0) % Neutrophils # (1.3-7.7) k/uL Chloride (98-107) mmol/L BUN (7-17) mg/dL Glucose (74-99) mg/dL POC Glucose (mg/dL) 124 H (70-110) mg/dL AST (14-36) U/L ALT (4-34) U/L Alkaline Phosphatase (38-126) U/L Total Protein (6.3-8.2) g/dL
--- NOTE | 2022-03-03 11:02 | P.PN ---
Subjective Progress Note Date: 03/03/22 HISTORY OF PRESENT ILLNESS This is a pleasant 76 years old female with past medical history of Fibromyalg ia, Hyperlipidemia, Hypertension, Osteoarthritis , Supraventricular Tachycardia ,urinary incontinence-wears pad, severe left internal carotid artery stenosis followed by Dr. Fitzgerald, frequent constipation, she was admitted under cardiology service for right arm pain, chest pain and back pain for the last 3 weeks, where she underwent cardiac cath and showing critical and complex lesion involving the distal left main coronary arteries and also involving the ostial left circumflex and the distal LAD with the stenotic range is 80-90% with increase in LVEDP , Patient will need bypass procedure to open his coronary arteries. Currently she denies chest pain or dyspnea. No incontinence of urine or bowel. No fever Patient is hemodynamically stable Labs including CBC, INR, BMP and liver enzymes are unremarkable. TSH is 1.6. Urine analysis showing trace blood. coronavirus not detected. Hepatitis panel is negative Chest x-ray: Minimal interstitial edema noted Carotid duplex: No significant stenosis Echocardiogram showing ejection fraction of 50-55% with pcrf-ji-wyudckry mitral regurgitation and mild tricuspid regurgitation Patient currently on heparin drip, aspirin 81 mg twice a day and normal saline at 75 mL/h as well as Lipitor and metoprolol However patient this morning she is asymptomatic she denies chest pain or dyspnea or abdominal pain. No diarrhea or vomiting or dysuria. No headache or weakness or numbness. 02/23: Patient is denying any chest pain, shortness of breath, palpitations, lightheadedness or dizziness. She is scheduled for CABG this afternoon and patient states that she is ready to move forward. No new concerns from her nurse. Patient has been afebrile, heart rate 80, blood pressure 129/78 and pulse ox 96% on room air. CBC is unremarkable. Chloride 110, CO2 20, blood sugar 112, creatinine 0.68. 02/24: Patient is status post CABG 2 with left internal mammary artery to the left anterior descending artery, reverse saphenous vein graft to the obtuse marginal artery, ligation of the left atrial appendage with a 40 mm AtriCure clip, endovascular vein harvest of the right greater saphenous vein, placement of intra-aortic balloon pump. Right groin intra-aortic balloon pump was discontinued this morning. Right internal jugular [place]is, right radial arterial line, mediastinal/left pleural chest tubes remain in place. Patient is stating that she is feeling well. She has been afebrile, heart rate 75, 121/54, pulse ox 93% on 2 L. Capillary blood glucose running between 110 and 120. WBC 9.7, hemoglobin 9.3 and platelet count 195. Electrolytes and renal function normal. AST 85 and ALT 41. 02/25: Patient remains in the intensive care unit. Yesterday pulse ox continued to drop through the day with increased oxygen demands to the point where she is now on BiPAP. She states she feels a little short of breath. She denies Chest pain. Temperature max 100.4, heart rate 76, respiratory rate 32, blood pressure 130/73. medical csr sinus rhythm. Patient is status post IV Lasix yesterday with good urine output. Blood glucose running between 107 and 124 and insulin drip will be discontinued, transition to NovoLog scale every 4 hours. Urinalysis was turbid, blood small. 02/26: Patient remains in the intensive care unit on BiPAP. She has been unable to eat only taking a few sips of water. Chest tubes have been removed, pacer wires to be removed today. Boss catheter is in place, good urine output. Patient has been afebrile, heart rate in the 80s, blood pressure 144/76, pulse ox 90% on FiO2 80 BiPAP. medical csr is sinus rhythm. Repeat blood work reveals WBC 19.9, hemoglobin 10.2, platelet count 266. Sodium 135, BUN 30 creatinine 0.67. AST 83 and ALT 60. Blood sugars running between 123 and 160. Chest x-ray reveals stable. Persistent perihilar and basilar patchy densities bilateral small effusions. Chest ultrasound reveals right pleural effusion 4.9 cm 2.2 cm fluid pocket. 02/27: Patient remains in intensive care unit. She has just been transitioned to AirVo and off BiPAP which she utilized during the night and all day yesterday. Patient converted to atrial fibrillation when we walked into the room. Boss remains in place. We have added in a consult for Dr. Stephenson in anticipation the patient will be ready for discharge to a week. She has been afebrile, heart r ate 101, respiratory rate 28, blood pressure 154/81, pulse ox 96% FiO2 of 90. Repeat blood work reveals WBC 19.2, hemoglobin 10.8 and platelet count 375. Electrolytes are normal. Creatinine 0.69. AST is 103 and ALT 95. Coronavirus PCR not detected. Patient has been started on cefepime and IV vancomycin prophylactically per pulmonary recommendations. Pro-calcitonin has been ordered Patient is continued on IV Lasix. 02/28, patient's remains in ICU, still with hypersomnia, nasal CPAP in place, on oral prednisone 40 mg, pulse ox 97%, high flow O2, FiO2 90%, vitals are stable, slightly tachypneic, with some conversations dyspnea, patient is sleeping in the recliner often, has trace edema, melatonin 5 mg started, for sleep latter day, indwelling Boss catheter, clear urine, with adequate urine output. Patient receiving IV vancomycin and cefepime, chest x-ray, similar airspace opacities and right pleural effusion, similar cardiomegaly, migjht need furosemide, if shortness of breath and the mass was.. Patient remains in sinus rhythm, no new episodes of atrial fibrillation, since the past 24 hours, creatinine 0.6 sodium 140 hemoglobin 10.5 incentive spirometry, and 750 mL capacity 03/01 patient remains in ICU, still with hypersomnolence, was able to sleep well last night in bed, still has nasal CPAP, while drifting off to sleep, no chest pain no shortness of breath, leg swelling is improving, no aspirated events, cardiac seems to be stable, wbc count, 12.5 creatinine 0.77, glucose 123 blood pressure 1:30 to 135 systolic, pulse ox 98%, with 80% FiO2 multiple specialists are following, adequate urine output, 03/03: Patient is seen today in the intensive care unit. She is resting comfortably in a recliner and appears to be in no acute distress. She is scheduled to get up for her shower today. She is off oxygen with pulse ox of 90-94%. Blood pressure 140/74, heart rate in the 60s and 70s. Afebrile. medical csr is sinus rhythm. Cardiology increased lisinopril. WBC 12.1, hemoglobin 10.7, platelet count 377. Sodium 143, potassium 3.6, chloride 108, CO2 28, BUN 31 creatinine 0.77. Capillary blood glucose running between 107 and 170. Total bilirubin 0.8, AST 43, ALT 66, alkaline phosphatase 146. Chest x- ray reveals continued CHF interstitial pulmonary edema slightly worsened. Small pleural effusion with prominent adjacent atelectasis or consolidation, external artifacts. REVIEW OF SYSTEMS Constitutional: No fever, no chills, no night sweats. No weight change. Noted weakness, fatigue no lethargy. No daytime sleepiness. EENT: No headache. No blurred vision or double vision, no loss of vision. No loss of Hearing, no ringing in the ears, no dizziness. No nasal drainage or congestion. No epistaxis. No sore throat. Lungs: Minimal shortness of breath, cough, no sputum production. No wheezing. Cardiovascular: Denies chest pain, no lower extremity edema. No palpitations. No paroxysmal nocturnal dyspnea. No orthopnea. No lightheadedness or dizziness. No syncopal episodes. Abdominal: No abdominal pain. No nausea, vomiting. No diarrhea. No constipation. No bloody or tarry stools. No loss of appetite. Genitourinary: No dysuria, increased frequency, urgency. No urinary retention. Musculoskeletal: No myalgias. No muscle weakness, no gait dysfunction, no frequent falls. No back pain. No neck pain. Integumentary: No wounds, no lesions. No rash or pruritus. No unusual bruising. No change in hair or nails. Neurologic: No aphasia. No facial droop. No change in mentation. No head injury. No headache. No paralysis. No paresthesia. Psychiatric: No depression. No anxiety. No mood swings. Endocrine: No abnormal blood sugars. No weight change. No excessive sweating or thirst. PHYSICAL EXAMINATION Gen: This is a 76-year-old overweight female. She is resting in recliner and appears to be comfortable and in no acute distress. Patient patient is off oxygen NECK: Supple. No JVD. No lymphadenopathy. No thyromegaly. LUNGS: Decreased breath sounds at the bases otherwise Clear to auscultation. No wheezes or rhonchi. No intercostal retractions. HEART: Regular rate and rhythm. Systolic murmur. ABDOMEN: Soft. Bowel sounds are present. No masses. No tenderness. Boss catheter draining cora urine EXTREMITIES: No calf tenderness. Trace edema bilateral ankles 2+1 edema NEUROLOGICAL: Patient is awake, alert and oriented x3. Cranial nerves 2 through 12 are grossly intact. ASSESSMENT AND PLAN 1. Severe coronary artery disease status post 2 vessel CABG 6/27. Continue current plan per cardiothoracic team. Continue aspirin 325 mg daily, Lipitor 80 mg daily, Plavix 75 mg daily, continue [place] as needed for pain, DuoNeb treatments 4 times daily and as needed, Lopressor 50 mg twice daily. Patient is also been started on cefepime and IV vancomycin, prednisone 40 mg daily. Pro- calcitonin pending. 2. Acute hypoxic respiratory failure. Patient is off oxygen. 3. Worsening bilateral lung infiltrates and small right pleural effusion. Patient has been started on cefepime and IV vancomycin, pro-calcitonin, Lasix as needed. 4. Hypertension. Continue lisinopril increased to 20 mg twice daily, continue Lopressor. 5. Hyperlipidemia. Continue atorvastatin. 6. Carotid artery disease. Continue aspirin, atorvastatin. 7. Hyperglycemia. Continue patient on NovoLog scale every 4 hours. 8. New onset paroxysmal atrial fibrillation. Lopressor 50 mg twice daily. 9. GI prophylaxis. Protonix 40 mg daily 10. DVT prophylaxis. Heparin subcu. DISCHARGE PLAN IP REHAB AT [facility] OR discharge to son's home Impression and plan of care have been directed as dictated by the signing physician. Elif Maharaj nurse practitioner acting as scribe for signing physician. Objective - Vital Signs Vital signs: Vital Signs Temp 97.6 F 03/03/22 08:00 Pulse 72 03/03/22 09:00 Resp 21 03/03/22 09:00 BP 140/70 03/03/22 09:00 Pulse Ox 94 L 03/03/22 09:00 FiO2 45 03/02/22 04:00 Intake & Output 03/02/22 03/03/22 03/03/22 18:59 06:59 18:59 Intake Total 1207 220 65 Output Total 1800 500 650 Balance -593 -280 -585 Weight 109.5 kg 108 kg Intake: IV 367 120 65 Cefepime 2 gm In Sodium 200 25 Chloride 0.9% 100 ml @ 25 mls/hr IVPB Q8HR [facility] Rx# :[id number] Lactated Ringers 1,000 ml 120 40 @ 20 mls/hr IV .Q24H [facility] Rx#:[id number] Vancomycin 2,000 mg In 167 Sodium Chloride 0.9% 500 ml 500 ml @ 167 mls/hr IVPB Q16H [facility] Rx#: [id number] Intake, IV Titration 100 Amount Cefepime 2 gm In Sodium 100 Chloride 0.9% 100 ml @ 25 mls/hr IVPB Q8HR [facility] Rx# :[id number] Oral 840 Output: Urine 1800 500 650 Other: Voiding Method Bedside Commode Bedside Commode Bedside Commode # Voids 0 1 ABP, PAP, CO, CI - Last Documented Arterial Blood Pressure 281/281 Pulmonary Artery Pressure 43/24 Cardiac Output 4 Cardiac Index 1.9 - Labs CBC & Chem 7: 03/03/22 05:11 03/03/22 05:11 Labs: Abnormal Lab Results - Last 24 Hours (Table) 03/02/22 03/02/22 03/02/22 Range/Units 11:38 16:35 19:56 WBC (3.8-10.6) k/uL RBC (3.80-5.40) m/uL Hgb (11.4-16.0) gm/dL Hct (34.0-46.0) % Neutrophils # (1.3-7.7) k/uL Chloride (98-107) mmol/L BUN (7-17) mg/dL Glucose (74-99) mg/dL POC Glucose (mg/dL) 208 H 126 H 170 H (70-110) mg/dL AST (14-36) U/L ALT (4-34) U/L Alkaline Phosphatase (38-126) U/L Total Protein (6.3-8.2) g/dL 03/02/22 03/03/22 03/03/22 Range/Units 23:36 05:11 05:11 WBC 12.1 H (3.8-10.6) k/uL RBC 3.50 L (3.80-5.40) m/uL Hgb 10.7 L (11.4-16.0) gm/dL Hct 32.2 L (34.0-46.0) % Neutrophils # 9.9 H (1.3-7.7) k/uL Chloride 108 H (98-107) mmol/L BUN 31 H (7-17) mg/dL Glucose 105 H (74-99) mg/dL POC Glucose (mg/dL) 116 H (70-110) mg/dL AST 43 H (14-36) U/L ALT 66 H (4-34) U/L Alkaline Phosphatase 146 H (38-126) U/L Total Protein 5.7 L (6.3-8.2) g/dL 03/03/22 Range/Units 08:32 WBC (3.8-10.6) k/uL RBC (3.80-5.40) m/uL Hgb (11.4-16.0) gm/dL Hct (34.0-46.0) % Neutrophils # (1.3-7.7) k/uL Chloride (98-107) mmol/L BUN (7-17) mg/dL Glucose (74-99) mg/dL POC Glucose (mg/dL) 124 H (70-110) mg/dL AST (14-36) U/L ALT (4-34) U/L Alkaline Phosphatase (38-126) U/L Total Protein (6.3-8.2) g/dL
[2022-03-03 12:03] LABS: Glucose,Whole Blood 128 mg/dL (70-110)
--- NOTE | 2022-03-03 15:07 | P.PN ---
Subjective Progress Note Date: 03/03/22 Principal diagnosis: Symptomatic coronary disease, post coronary artery bypass surgery 2, off-pump and the patient is postop day #8 03/02/2022 the patient is postop day #7. Patient is doing well and the patient was taken off the Airvo and the patient is currently on 5 L O2 2 by nasal cannula. She did suffer a post surgical ARDS from which she is gradually recovering pH remains on prednisone 40 mg by mouth daily. She remains on IV cefepime and vancomycin can be discontinued knowing that the antibiotics was essentially hepatic in nature. The patient has no new complaints otherwise for now. The patient has a white cell count of 12.2 with a hemoglobin of 10.3. Electrodes are all within normal limits. No nausea. No vomiting. Using incentive spirometer, pulling approximately 1000 on the I asked. On terms of the renal function, the patient is stable creatinine of 0.7 with a mean of 42. Surgical with that is dry clean and intact. Cardiac rhythm is sinus and the patient is still having on and off episodes of atrial fibrillation. Reevaluated today on 03/03/2022, patient is sitting at a bedside chair, in no distress, patient is on room air. Overall the patient is doing great. Apparently she suffered postsurgical ARDS and she recovered nicely, patient remains on prednisone she is was also on antibiotics in the form of cefepime and vancomycin which was eventually discontinued. Patient has no symptoms today. Her WBC count is 12.1 hemoglobin is 10.7 electrolytes and renal profile are normal. Chest x-ray is suggestive of interstitial edema/ARDS. And she has small pleural effusions Objective - Vital Signs Vital signs: Vital Signs Temp 98 F 03/03/22 12:00 Pulse 72 03/03/22 12:00 Resp 19 03/03/22 12:00 BP 133/87 03/03/22 12:00 Pulse Ox 95 03/03/22 12:00 FiO2 45 03/02/22 04:00 Intake & Output 03/02/22 03/03/22 03/03/22 18:59 06:59 18:59 Intake Total 1207 220 180 Output Total 1800 500 650 Balance -593 -280 -470 Weight 109.5 kg 108 kg Intake: IV 367 120 180 Cefepime 2 gm In Sodium 200 100 Chloride 0.9% 100 ml @ 25 mls/hr IVPB Q8HR [facility] Rx# :[id number] Lactated Ringers 1,000 ml 120 80 @ 20 mls/hr IV .Q24H [facility] Rx#:[id number] Vancomycin 2,000 mg In 167 Sodium Chloride 0.9% 500 ml 500 ml @ 167 mls/hr IVPB Q16H [facility] Rx#: [id number] Intake, IV Titration 100 Amount Cefepime 2 gm In Sodium 100 Chloride 0.9% 100 ml @ 25 mls/hr IVPB Q8HR [facility] Rx# :[id number] Oral 840 Output: Urine 1800 500 650 Other: Voiding Method Bedside Commode Bedside Commode Bedside Commode # Voids 0 1 ABP, PAP, CO, CI - Last Documented Arterial Blood Pressure 281/281 Pulmonary Artery Pressure 43/24 Cardiac Output 4 Cardiac Index 1.9 - Exam Physical Exam: Revealed 76-year-old female in no distress, on room air. Head: Atraumatic, normocephalic HEENT:[Neck is supple.] [No neck masses.] [No thyromegaly.] [No JVD.] Chest: [Symmetrical chest expansion. Crackles at the bases no rhonchi and no wheezes Cardiac Exam: [Normal S1 and S2, no S3 gallop, no murmur.] Abdomen: [Soft, nontender, no megaly, no rebound, no guarding, normal bowel sounds.] Extremities: [No clubbing, no edema, no cyanosis.] Neurological Exam: [No focal neurologic deficit.] Alert oriented 3. Psychiatric: Normal mood, affect and normal mental status examination. Skin: No rashes - Labs CBC & Chem 7: 03/03/22 05:11 03/03/22 05:11 Labs: Abnormal Lab Results - Last 24 Hours (Table) 03/02/22 03/02/22 03/02/22 Range/Units 16:35 19:56 23:36 WBC (3.8-10.6) k/uL RBC (3.80-5.40) m/uL Hgb (11.4-16.0) gm/dL Hct (34.0-46.0) % Neutrophils # (1.3-7.7) k/uL Chloride (98-107) mmol/L BUN (7-17) mg/dL Glucose (74-99) mg/dL POC Glucose (mg/dL) 126 H 170 H 116 H (70-110) mg/dL AST (14-36) U/L ALT (4-34) U/L Alkaline Phosphatase (38-126) U/L Total Protein (6.3-8.2) g/dL 03/03/22 03/03/22 03/03/22 Range/Units 05:11 05:11 08:32 WBC 12.1 H (3.8-10.6) k/uL RBC 3.50 L (3.80-5.40) m/uL Hgb 10.7 L (11.4-16.0) gm/dL Hct 32.2 L (34.0-46.0) % Neutrophils # 9.9 H (1.3-7.7) k/uL Chloride 108 H (98-107) mmol/L BUN 31 H (7-17) mg/dL Glucose 105 H (74-99) mg/dL POC Glucose (mg/dL) 124 H (70-110) mg/dL AST 43 H (14-36) U/L ALT 66 H (4-34) U/L Alkaline Phosphatase 146 H (38-126) U/L Total Protein 5.7 L (6.3-8.2) g/dL 03/03/22 Range/Units 12:01 WBC (3.8-10.6) k/uL RBC (3.80-5.40) m/uL Hgb (11.4-16.0) gm/dL Hct (34.0-46.0) % Neutrophils # (1.3-7.7) k/uL Chloride (98-107) mmol/L BUN (7-17) mg/dL Glucose (74-99) mg/dL POC Glucose (mg/dL) 128 H (70-110) mg/dL AST (14-36) U/L ALT (4-34) U/L Alkaline Phosphatase (38-126) U/L Total Protein (6.3-8.2) g/dL Assessment and Plan Assessment: Impression: Status post CABG, postoperative day #8 Acute hypoxic respiratory failure postsurgical ARDS, unexpected. Improving steadily over the last few days. Paroxysmal atrial fibrillation Postoperative anemia/expected Recommendation: Continue present supportive care measures Continue incentive spirometry Continue cardiac meds and beta blockers This continue diuretics Discontinue amiodarone We will continue to follow. Time with Patient: Less than 30
--- NOTE | 2022-03-03 15:13 | P.PN ---
Subjective Progress Note Date: 03/03/22 Principal diagnosis: Coronary artery disease with left main disease, unstable angina, atrial arrhythmias. Past medical history significant for hypertension, hyperlipidemia, SVT, left internal carotid artery stenosis, obesity, lifetime nonsmoker, remains unvaccinated against Covid, and family history of coronary artery disease. POD #8 off-pump coronary artery bypass grafting 2 with left internal mammary artery to the left anterior descending coronary artery, reverse saphenous vein graft to the obtuse marginal coronary artery, ligation of the left atrial appendage with a 40 mm AtriCure clip, endovascular vein harvest of the right greater saphenous vein, placement of intra-aortic balloon pump. Postoperative acute blood loss anemia, expected given hemodilution. Acute hypoxic respiratory failure requiring bipap, and Airvo. Currently on room air with oxygen saturations 95%. Paroxysmal atrial fibrillation, a known common occurrence after cardiac surgery. The patient was seen and examined today 03/03/2022 at her bedside in the intensive care unit. She is awake, alert, oriented 3 and is in no acute distress. She is sitting up to the bedside chair, oxygen saturation are 95% on room air. Achieving 1000 mL on her incentive spirometry up encouragement. She was given 1 dose of Lasix 40 mg IV with good diuresis yesterday. Urine output in the last 8 hours was 400 mL. She remains hemodynamically stable and is currently on no inotropic or pressor support. She has been afebrile in the last 24 hours, her vancomycin has been discontinued and she remains on cefepime 2 g every 8 hours IV piggyback for empiric antibiotic coverage. Prednisone 40 mg by mouth daily also remains in place. Laboratory results this morning show a WBC count continuing to trend down at 12.1, hemoglobin 10.7, hematocrit 32.2, platelets 377, sodium 143, potassium 3.6, BUN 31, creatinine 0.77, AST 43 and ALT 66. The patient reports she has been up ambulating in the intensive care unit hallway with standby assistance from nursing and therapy staff, tolerating well. Bedside telemetry showing normal sinus rhythm heart rate 68 BPM. Objective - Vital Signs Vital signs: Vital Signs Temp 98.2 F 03/03/22 04:00 Pulse 64 03/03/22 07:00 Resp 25 H 03/03/22 07:00 BP 142/85 03/03/22 07:00 Pulse Ox 93 L 03/03/22 07:00 FiO2 45 03/02/22 04:00 Intake & Output 03/02/22 03/03/22 03/03/22 18:59 06:59 18:59 Intake Total 1207 220 20 Output Total 1800 500 150 Balance -593 -280 -130 Weight 109.5 kg 108 kg Intake: IV 367 120 20 Cefepime 2 gm In Sodium 200 Chloride 0.9% 100 ml @ 25 mls/hr IVPB Q8HR [facility] Rx# :[id number] Lactated Ringers 1,000 ml 120 20 @ 20 mls/hr IV .Q24H [facility] Rx#:[id number] Vancomycin 2,000 mg In 167 Sodium Chloride 0.9% 500 ml 500 ml @ 167 mls/hr IVPB Q16H [facility] Rx#: [id number] Intake, IV Titration 100 Amount Cefepime 2 gm In Sodium 100 Chloride 0.9% 100 ml @ 25 mls/hr IVPB Q8HR [facility] Rx# :[id number] Oral 840 Output: Urine 1800 500 150 Other: Voiding Method Bedside Commode Bedside Commode # Voids 0 1 ABP, PAP, CO, CI - Last Documented Arterial Blood Pressure 281/281 Pulmonary Artery Pressure 43/24 Cardiac Output 4 Cardiac Index 1.9 - Exam CONSTITUTIONAL: Currently sitting up to the bedside chair in the intensive care unit. Appears comfortable, cooperative, no acute distress. RESPIRATORY: Lungs sounds diminished bilaterally, right greater than left. Respirations are symmetrical and nonlabored. Currently on room air with oxygen saturation 95%. Strong nonproductive cough. Achieving 1000 mL on her incentive spirometry with encouragement. CARDIOVASCULAR: S1, S2 present. Regular rate and rhythm, sinus rhythm on telemetry, heart rate 68 BPM. Sternum stable. Palpable peripheral pulses bilaterally. Trace generalized edema present. No calf pain or tenderness noted. Heart hugger in place with patient demonstrating appropriate use. Antiembolism stockings, SCDs present. GASTROINTESTINAL: Abdomen soft, nontender, nondistended. Active bowel sounds present 4 quadrants. Tolerating diet. Passing flatus. Bowel movement on 03/01/2022. GENITOURINARY: Continues to void with 400 mL of urine output in the last 8 hours. INTEGUMENTARY: Skin is warm and dry with evidence of good perfusion. Midline sternal incision is well approximated and covered with dry intact dressing. Right lower extremity EVH site well approximated without redness or drainage. NEUROLOGIC: Cranial nerves II through XII intact. No focal deficits. MUSKULOSKELETAL: Able to move all extremities, strength equal bilaterally. PSYCHIATRIC: Alert and oriented to person place and time, appropriate affect, intact judgment and insight. - Allied health notes Allied health notes reviewed: nursing - Labs CBC & Chem 7: 03/03/22 05:11 03/03/22 05:11 Labs: Abnormal Lab Results - Last 24 Hours (Table) 03/02/22 03/02/22 03/02/22 Range/Units 11:38 16:35 19:56 WBC (3.8-10.6) k/uL RBC (3.80-5.40) m/uL Hgb (11.4-16.0) gm/dL Hct (34.0-46.0) % Neutrophils # (1.3-7.7) k/uL Chloride (98-107) mmol/L BUN (7-17) mg/dL Glucose (74-99) mg/dL POC Glucose (mg/dL) 208 H 126 H 170 H (70-110) mg/dL AST (14-36) U/L ALT (4-34) U/L Alkaline Phosphatase (38-126) U/L Total Protein (6.3-8.2) g/dL 03/02/22 03/03/22 03/03/22 Range/Units 23:36 05:11 05:11 WBC 12.1 H (3.8-10.6) k/uL RBC 3.50 L (3.80-5.40) m/uL Hgb 10.7 L (11.4-16.0) gm/dL Hct 32.2 L (34.0-46.0) % Neutrophils # 9.9 H (1.3-7.7) k/uL Chloride 108 H (98-107) mmol/L BUN 31 H (7-17) mg/dL Glucose 105 H (74-99) mg/dL POC Glucose (mg/dL) 116 H (70-110) mg/dL AST 43 H (14-36) U/L ALT 66 H (4-34) U/L Alkaline Phosphatase 146 H (38-126) U/L Total Protein 5.7 L (6.3-8.2) g/dL - Imaging and Cardiology Chest x-ray: report reviewed, image reviewed Assessment and Plan Assessment: 1. Coronary artery disease with left main disease, status post 2 vessel CABG 2. Hypertension 3. Hyperlipidemia, cholesterol 182, LDL 122 4. SVT, intraoperative atrial arrhythmias with cardioversion, status post left atrial appendage ligation 5. Left internal carotid artery stenosis 6. Obesity 7. Never smoker, preoperative FEV1 72% of predicted 8. History of covid infection in July 2021, remains unvaccinated against Covid, negative COVID-19 PCR 9. Family history of coronary artery disease 10. Nasal swab positive for MSSA, treated with mupirocin 11. Preserved LV function with mild to moderate mitral regurgitation on transthoracic echocardiogram 12. Acute blood loss anemia 13. Acute hypoxic respiratory failure requiring bipap 14. Leukocytosis, improving 15. Paroxysmal atrial fibrillation, a known common occurrence after cardiac surgery Plan: 1. Continue to maximize medical management with aspirin, Plavix, statin, beta ena and TASHI inhibitor. Will increase metoprolol tartrate as tolerated. 2. No further episodes of atrial fibrillation. No anticoagulation necessary at this point. 3. Wean O2 as tolerated. Encourage incentive spirometry 10 times every hour while awake. Bronchodilators per pulmonology. 4. Increase activity as tolerated. PT/OT/cardiac rehab following. 5. GI/DVT prophylaxis. 6. Will monitor daily labs and chest x-ray. Electrolyte replacement per protocol. 7. Pain control with current medication regimen. 8. Insulin management per primary care service. Patient is not diabetic, preoperative hemoglobin A1c 5.6%. 9. Continue to record strict accurate intake and output. Daily weights. 10. Continue cefepime 2 g IV piggyback every 8 hours per pulmonary/critical care medicine management. 11. Continue Prednisone 40 mg by mouth daily per pulmonary/critical care medicine management. 12. Continue to encourage nutrition and advance diet as tolerated. 13. First postoperative shower today. Then shower daily. 14. We will place transfer orders to the third floor cardiac stepdown unit. Discharge planning is in place, anticipate discharge home with home health care in the next 24-48 hours. 15. More recommendations follow based on patient's clinical course. Time with Patient: Greater than 30
[2022-03-03 16:36] LABS: Glucose,Whole Blood 128 mg/dL (70-110)
[2022-03-03 20:17] LABS: Glucose,Whole Blood 186 mg/dL (70-110)
[2022-03-03] MEDS: SENNOSIDES-DOCUSATE SODIUM 1 EACH TAB PO SCH (21:29)
[2022-03-03] MEDS: MELATONIN 5 MG TABLET PO SCH (21:29)
[2022-03-03] MEDS: lisinopriL 20 MG TAB PO SCH (21:29)
[2022-03-04 02:10] LABS: Glucose,Whole Blood 105 mg/dL (70-110)
[2022-03-04 06:10] LABS: Glucose,Whole Blood 114 mg/dL (70-110)
[2022-03-04] MEDS: METOPROLOL TARTRATE 50 MG TAB PO SCH (06:13)
[2022-03-04] MEDS: INSULIN ASPART (NovoLOG) 100 UNIT/ML VIAL SQ SCH ×2 (06:29→13:13)
[2022-03-04] MEDS: PANTOPRAZOLE 40 MG TABLET PO SCH (06:30)
[2022-03-04 07:04] LABS: ALT 66 U/L (4-34); AST 51 U/L (14-36); African American GFR (CKD) >90 (>60 ml/min/1.73 sqM); Albumin 3.7 g/dL (3.5-5.0); Alkaline Phosphatase 146 U/L (38-126); Anion Gap 8 mmol/L; Blood Urea Nitrogen 27 mg/dL (7-17); Calcium 8.6 mg/dL (8.4-10.2); Carbon Dioxide 24 mmol/L (22-30); Chloride 110 mmol/L (98-107); Glucose 114 mg/dL (74-99); Magnesium 2.4 mg/dL (1.6-2.3); Non-African American GFR(CKD) 86 (>60 ml/min/1.73 sqM); Potassium 3.7 mmol/L (3.5-5.1); Sodium 142 mmol/L (137-145); Total Bilirubin 0.9 mg/dL (0.2-1.3); Total Protein 6.2 g/dL (6.3-8.2)
--- NOTE | 2022-03-04 07:04 | XR ---
EXAMINATION TYPE: XR chest 2V DATE OF EXAM: 03/04/2022 COMPARISON: Chest x-ray from one day earlier and older studies. HISTORY: Postoperative CABG. TECHNIQUE: Frontal and lateral views of the chest are obtained. FINDINGS: Overlying sternal wires and mediastinal clips along with left atrial appendage clip all re demonstrated. Persistent low lung volumes and cardiomegaly with small bilateral pleural effusions and associated bi basilar compressive atelectasis. No visualized pneumothorax seen on current study. Osseous structures are intact. IMPRESSION: Continued CHF exacerbation with cardiomegaly and small bilateral pleural effusions. No s ignificant change from one day earlier.
[2022-03-04 07:07] LABS: Basophils % (A) 0 %; Eosinophils # (A) 0.1 k/uL (0-0.7); Eosinophils % (A) 1 %; HCT 33.6 % (34.0-46.0); HGB 10.8 gm/dL (11.4-16.0); Hypochromasia Moderate; Lymphocytes # (A) 1.2 k/uL (1.0-4.8); Lymphocytes % (A) 8 %; MCH 29.4 pg (25.0-35.0); MCHC 32.2 g/dL (31.0-37.0); MCV 91.3 fL (80.0-100.0); Mean Platelet Volume 7.5; Monocytes % (A) 7 %; Neutrophils # (A) 12.4 k/uL (1.3-7.7); Neutrophils % (A) 83 %; Platelet Count 475 k/uL (150-450); RBC 3.68 m/uL (3.80-5.40); RDW 14.9 % (11.5-15.5); WBC 14.9 k/uL (3.8-10.6)
[2022-03-04] MEDS: IPRATROPIUM-ALBUTEROL 3 ML NEB INHALATION SCH ×3 (08:05→15:43)
[2022-03-04] MEDS: HEPARIN SODIUM,PORCINE/PF 5,000 UNIT/0.5 ML SYRINGE SQ SCH (08:25)
[2022-03-04] MEDS: CLOPIDOGREL 75 MG TAB PO SCH (08:26)
[2022-03-04] MEDS: ASPIRIN 325 MG TAB PO SCH (08:26)
[2022-03-04] MEDS: ATORVASTATIN 80 MG TAB PO SCH (08:26)
[2022-03-04] MEDS: lisinopriL 20 MG TAB PO SCH (08:26)
--- NOTE | 2022-03-04 08:34 | P.PN ---
Subjective Progress Note Date: 03/04/22 Principal diagnosis: Coronary artery disease with left main disease, unstable angina, atrial arrhythmias. Previous medical history of hypertension, hyperlipidemia, SVT, left internal carotid artery stenosis, obesity, never smoker, remains unvaccinated against Covid, family history of coronary artery disease POD #9 off-pump coronary artery bypass grafting 2 with left internal mammary artery to the left anterior descending artery, reverse saphenous vein graft to the obtuse marginal artery, ligation of the left atrial appendage with a 40 mm AtriCure clip, endovascular vein harvest of the right greater saphenous vein, placement of intra-aortic balloon pump Postoperative acute blood loss anemia, expected given hemodilution Acute hypoxic respiratory failure requiring bipap Paroxysmal atrial fibrillation, known common occurrence after open heart surgery The patient was seen and examined this morning sitting up in a recliner on the cardiac stepdown unit in no acute distress. She denies pain except when coughing hard, denies shortness of breath. Currently in sinus rhythm, hemodynamically stable. Remains on room air with oxygen saturation in the mid 90s. She has been ambulatory in the hallway but still feels a bit weak. Plan is for discharge today vs tomorrow to [facility]. Objective - Vital Signs Vital signs: Vital Signs Temp 97.7 F 03/04/22 04:00 Pulse 66 03/04/22 04:00 Resp 16 03/04/22 04:00 BP 167/74 03/04/22 04:00 Pulse Ox 94 L 03/04/22 04:00 FiO2 21 03/03/22 19:25 Intake & Output 03/03/22 03/04/22 03/04/22 18:59 06:59 18:59 Intake Total 200 Output Total 900 200 Balance -700 -200 Weight 107.2 kg Intake: IV 200 Cefepime 2 gm In Sodium 100 Chloride 0.9% 100 ml @ 25 mls/hr IVPB Q8HR [facility] Rx# :[id number] Lactated Ringers 1,000 ml 100 @ 20 mls/hr IV .Q24H [facility] Rx#:[id number] Output: Urine 900 200 Other: Voiding Method Bedside Commode Toilet ABP, PAP, CO, CI - Last Documented Arterial Blood Pressure 281/281 Pulmonary Artery Pressure 43/24 Cardiac Output 4 Cardiac Index 1.9 - Exam CONSTITUTIONAL: Appears comfortable, cooperative, no acute distress RESPIRATORY: Lungs sounds diminished bilaterally, right greater than left. Respirations even, nonlabored. Currently on room air with oxygen saturation 94%. Able to achieve 1000 mL on incentive spirometry. Strong dry cough. CARDIOVASCULAR: S1, S2 present. Regular rate and rhythm, sinus rhythm on telemetry. Sternum stable. Palpable peripheral pulses bilaterally. Trace bilateral lower extremity edema present. No calf pain or tenderness noted. Heart hugger in place with patient demonstrating appropriate use. Antiembolism stockings, SCDs present. GASTROINTESTINAL: Abdomen soft, nontender, nondistended. Active bowel sounds present 4 quadrants. Tolerating diet. Positive bowel movement. GENITOURINARY: Continues to void although not always measured INTEGUMENTARY: Skin is warm and dry with evidence of good perfusion. Anterior chest incision well approximated and covered with dry intact dressing. EVH site well approximated without redness or drainage. NEUROLOGIC: Cranial nerves II through XII intact MUSKULOSKELETAL: Able to move all extremities, strength equal bilaterally, gait normal PSYCHIATRIC: Alert and oriented to person place and time, appropriate affect, intact judgment and insight - Allied health notes Allied health notes reviewed: nursing - Labs CBC & Chem 7: 03/04/22 06:28 03/04/22 06:28 Labs: Abnormal Lab Results - Last 24 Hours (Table) 03/03/22 03/03/22 03/03/22 Range/Units 08:32 12:01 16:34 WBC (3.8-10.6) k/uL RBC (3.80-5.40) m/uL Hgb (11.4-16.0) gm/dL Hct (34.0-46.0) % Plt Count (150-450) k/uL Neutrophils # (1.3-7.7) k/uL Chloride (98-107) mmol/L BUN (7-17) mg/dL Glucose (74-99) mg/dL POC Glucose (mg/dL) 124 H 128 H 128 H (70-110) mg/dL Magnesium (1.6-2.3) mg/dL AST (14-36) U/L ALT (4-34) U/L Alkaline Phosphatase (38-126) U/L Total Protein (6.3-8.2) g/dL 03/03/22 03/04/22 03/04/22 Range/Units 20:15 06:07 06:28 WBC 14.9 H (3.8-10.6) k/uL RBC 3.68 L (3.80-5.40) m/uL Hgb 10.8 L (11.4-16.0) gm/dL Hct 33.6 L (34.0-46.0) % Plt Count 475 H (150-450) k/uL Neutrophils # 12.4 H (1.3-7.7) k/uL Chloride (98-107) mmol/L BUN (7-17) mg/dL Glucose (74-99) mg/dL POC Glucose (mg/dL) 186 H 114 H (70-110) mg/dL Magnesium (1.6-2.3) mg/dL AST (14-36) U/L ALT (4-34) U/L Alkaline Phosphatase (38-126) U/L Total Protein (6.3-8.2) g/dL 03/04/22 Range/Units 06:28 WBC (3.8-10.6) k/uL RBC (3.80-5.40) m/uL Hgb (11.4-16.0) gm/dL Hct (34.0-46.0) % Plt Count (150-450) k/uL Neutrophils # (1.3-7.7) k/uL Chloride 110 H (98-107) mmol/L BUN 27 H (7-17) mg/dL Glucose 114 H (74-99) mg/dL POC Glucose (mg/dL) (70-110) mg/dL Magnesium 2.4 H (1.6-2.3) mg/dL AST 51 H (14-36) U/L ALT 66 H (4-34) U/L Alkaline Phosphatase 146 H (38-126) U/L Total Protein 6.2 L (6.3-8.2) g/dL - Imaging and Cardiology Chest x-ray: report reviewed, image reviewed Assessment and Plan Assessment: 1. Coronary artery disease with left main disease, status post 2 vessel CABG 2. Hypertension 3. Hyperlipidemia, cholesterol 182, LDL 122 4. SVT, intraoperative atrial arrhythmias with cardioversion, status post left atrial appendage ligation 5. Left internal carotid artery stenosis 6. Obesity 7. Never smoker, preoperative FEV1 72% of predicted 8. History of covid infection in July 2021, remains unvaccinated against Covid 9. Family history of coronary artery disease 10. Nasal swab positive for MSSA, treated with mupirocin 11. Preserved LV function with mild to moderate mitral regurgitation on transthoracic echocardiogram 12. Acute blood loss anemia 13. Acute hypoxic respiratory failure requiring bipap 14. Leukocytosis with low grade fever 15. Paroxysmal atrial fibrillation, status post left atrial appendage ligation Plan: 1. Continue to maximize medical management with aspirin, Plavix, statin, beta ena 2. Restart amiodarone for A. fib prophylaxis. No anticoagulation necessary 3. Encourage incentive spirometry 10 times every hour while awake. Bronchodilators per pulmonology 4. Increase activity as tolerated. PT/OT/cardiac rehab following 5. GI/DVT prophylaxis 6. Will monitor daily labs and CXRs. Electrolyte replacement per protocol. 7. Pain control with current medication regimen 8. Insulin management per primary care service. Patient is not diabetic, preoperative hemoglobin A1c 5.6% 9. Strict accurate intake and output. Daily weights 10. Discontinue cefepime, prednisone 11. Discharge planning in progress. Anticipate discharge to [facility] today vs. tomorrow 12. More recommendations to follow
[2022-03-04] MEDS ORDERED: POTASSIUM BICARBONATE/CIT AC 20 MEQ TABLET.EFF PO ONE (08:59)
[2022-03-04] MEDS ORDERED: AMIODARONE 200 MG TAB PO SCH (09:00)
[2022-03-04] MEDS ORDERED: amLODIPine 10 MG TAB PO SCH (09:00)
--- NOTE | 2022-03-04 10:52 | P.PN ---
Subjective Progress Note Date: 03/04/22 HISTORY OF PRESENT ILLNESS This is a pleasant 76 years old female with past medical history of Fibromyalg ia, Hyperlipidemia, Hypertension, Osteoarthritis , Supraventricular Tachycardia ,urinary incontinence-wears pad, severe left internal carotid artery stenosis followed by Dr. Fitzgerald, frequent constipation, she was admitted under cardiology service for right arm pain, chest pain and back pain for the last 3 weeks, where she underwent cardiac cath and showing critical and complex lesion involving the distal left main coronary arteries and also involving the ostial left circumflex and the distal LAD with the stenotic range is 80-90% with increase in LVEDP , Patient will need bypass procedure to open his coronary arteries. Currently she denies chest pain or dyspnea. No incontinence of urine or bowel. No fever Patient is hemodynamically stable Labs including CBC, INR, BMP and liver enzymes are unremarkable. TSH is 1.6. Urine analysis showing trace blood. coronavirus not detected. Hepatitis panel is negative Chest x-ray: Minimal interstitial edema noted Carotid duplex: No significant stenosis Echocardiogram showing ejection fraction of 50-55% with [id number] mitral regurgitation and mild tricuspid regurgitation Patient currently on heparin drip, aspirin 81 mg twice a day and normal saline at 75 mL/h as well as Lipitor and metoprolol However patient this morning she is asymptomatic she denies chest pain or dyspnea or abdominal pain. No diarrhea or vomiting or dysuria. No headache or weakness or numbness. 02/23: Patient is denying any chest pain, shortness of breath, palpitations, lightheadedness or dizziness. She is scheduled for CABG this afternoon and patient states that she is ready to move forward. No new concerns from her nurse. Patient has been afebrile, heart rate 80, blood pressure 129/78 and pulse ox 96% on room air. CBC is unremarkable. Chloride 110, CO2 20, blood sugar 112, creatinine 0.68. 02/24: Patient is status post CABG 2 with left internal mammary artery to the left anterior descending artery, reverse saphenous vein graft to the obtuse marginal artery, ligation of the left atrial appendage with a 40 mm AtriCure clip, endovascular vein harvest of the right greater saphenous vein, placement of intra-aortic balloon pump. Right groin intra-aortic balloon pump was discontinued this morning. Right internal jugular Osgood/Cordis, right radial arterial line, mediastinal/left pleural chest tubes remain in place. Patient is stating that she is feeling well. She has been afebrile, heart rate 75, 121/54, pulse ox 93% on 2 L. Capillary blood glucose running between 110 and 120. WBC 9.7, hemoglobin 9.3 and platelet count 195. Electrolytes and renal function normal. AST 85 and ALT 41. 02/25: Patient remains in the intensive care unit. Yesterday pulse ox continued to drop through the day with increased oxygen demands to the point where she is now on BiPAP. She states she feels a little short of breath. She denies Chest pain. Temperature max 100.4, heart rate 76, respiratory rate 32, blood pressure 130/73. 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 Patient is status post IV Lasix yesterday with good urine output. Blood glucose running between 107 and 124 and insulin drip will be discontinued, transition to NovoLog scale every 4 hours. Urinalysis was turbid, blood small. 02/26: Patient remains in the intensive care unit on BiPAP. She has been unable to eat only taking a few sips of water. Chest tubes have been removed, pacer wires to be removed today. Boss catheter is in place, good urine output. Patient has been afebrile, heart rate in the 80s, blood pressure 144/76, pulse ox 90% on FiO2 80 BiPAP. 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 Repeat blood work reveals WBC 19.9, hemoglobin 10.2, platelet count 266. Sodium 135, BUN 30 creatinine 0.67. AST 83 and ALT 60. Blood sugars running between 123 and 160. Chest x-ray reveals stable. Persistent perihilar and basilar patchy densities bilateral small effusions. Chest ultrasound reveals right pleural effusion 4.9 cm 2.2 cm fluid pocket. 02/27: Patient remains in intensive care unit. She has just been transitioned to AirVo and off BiPAP which she utilized during the night and all day yesterday. Patient converted to atrial fibrillation when we walked into the room. Boss remains in place. We have added in a consult for Dr. Stephenson in anticipation the patient will be ready for discharge to a week. She has been afebrile, heart r ate 101, respiratory rate 28, blood pressure 154/81, pulse ox 96% FiO2 of 90. Repeat blood work reveals WBC 19.2, hemoglobin 10.8 and platelet count 375. Electrolytes are normal. Creatinine 0.69. AST is 103 and ALT 95. Coronavirus PCR not detected. Patient has been started on cefepime and IV vancomycin prophylactically per pulmonary recommendations. Pro-calcitonin has been ordered Patient is continued on IV Lasix. 02/28, patient's remains in ICU, still with hypersomnia, nasal CPAP in place, on oral prednisone 40 mg, pulse ox 97%, high flow O2, FiO2 90%, vitals are stable, slightly tachypneic, with some conversations dyspnea, patient is sleeping in the recliner often, has trace edema, melatonin 5 mg started, for sleep sikhism, indwelling Boss catheter, clear urine, with adequate urine output. Patient receiving IV vancomycin and cefepime, chest x-ray, similar airspace opacities and right pleural effusion, similar cardiomegaly, migjht need furosemide, if shortness of breath and the mass was.. Patient remains in sinus rhythm, no new episodes of atrial fibrillation, since the past 24 hours, creatinine 0.6 sodium 140 hemoglobin 10.5 incentive spirometry, and 750 mL capacity 03/01 patient remains in ICU, still with hypersomnolence, was able to sleep well last night in bed, still has nasal CPAP, while drifting off to sleep, no chest pain no shortness of breath, leg swelling is improving, no aspirated events, cardiac seems to be stable, wbc count, 12.5 creatinine 0.77, glucose 123 blood pressure 1:30 to 135 systolic, pulse ox 98%, with 80% FiO2 multiple specialists are following, adequate urine output, 03/03: Patient is seen today in the intensive care unit. She is resting comfortably in a recliner and appears to be in no acute distress. She is scheduled to get up for her shower today. She is off oxygen with pulse ox of 90-94%. Blood pressure 140/74, heart rate in the 60s and 70s. Afebrile. 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 Cardiology increased lisinopril. WBC 12.1, hemoglobin 10.7, platelet count 377. Sodium 143, potassium 3.6, chloride 108, CO2 28, BUN 31 creatinine 0.77. Capillary blood glucose running between 107 and 170. Total bilirubin 0.8, AST 43, ALT 66, alkaline phosphatase 146. Chest x- ray reveals continued CHF interstitial pulmonary edema slightly worsened. Small pleural effusion with prominent adjacent atelectasis or consolidation, external artifacts. 03/04: Repeat chest x-ray revealed continued CHF exacerbation with cardiomegaly a nd small bilateral pleural effusions. No significant change. Patient is found sleeping in recliner awakens easily. She states she is feeling tired. No significant shortness of breath or chest pain. She states that her discharge plan is for inpatient rehab at [facility] anticipate discharge today if arrangements are completed. Patient has been afebrile, heart rate in the 60s and 70s, blood pressure 167/74, pulse ox 94% on room air. Repeat blood work reveals WBC 14.9, hemoglobin 10.8 and platelet count 475. BUN 27 creatinine 0.69. Blood sugar 114. AST 51, ALT 66, alkaline phosphatase 146. REVIEW OF SYSTEMS Constitutional: No fever, no chills, no night sweats. No weight change. Noted weakness, fatigue-improving no lethargy. No daytime sleepiness. EENT: No headache. No blurred vision or double vision, no loss of vision. No loss of Hearing, no ringing in the ears, no dizziness. No nasal drainage or congestion. No epistaxis. No sore throat. Lungs: Minimal shortness of breath, cough, no sputum production. No wheezing. Cardiovascular: Denies chest pain, no lower extremity edema. No palpitations. No paroxysmal nocturnal dyspnea. No orthopnea. No lightheadedness or dizziness. No syncopal episodes. Abdominal: No abdominal pain. No nausea, vomiting. No diarrhea. No constipation. No bloody or tarry stools. No loss of appetite. Genitourinary: No dysuria, increased frequency, urgency. No urinary retention. Musculoskeletal: No myalgias. No muscle weakness, no gait dysfunction, no frequent falls. No back pain. No neck pain. Integumentary: No wounds, no lesions. No rash or pruritus. No unusual bruising. No change in hair or nails. Neurologic: No aphasia. No facial droop. No change in mentation. No head injury. No headache. No paralysis. No paresthesia. Psychiatric: No depression. No anxiety. No mood swings. Endocrine: No abnormal blood sugars. No weight change. No excessive sweating or thirst. PHYSICAL EXAMINATION Gen: This is a 76-year-old overweight female. She is resting in recliner and appears to be comfortable and in no acute distress. Patient patient is off oxygen NECK: Supple. No JVD. No lymphadenopathy. No thyromegaly. LUNGS: Decreased breath sounds at the bases otherwise Clear to auscultation. No wheezes or rhonchi. No intercostal retractions. HEART: Regular rate and rhythm. Systolic murmur. ABDOMEN: Soft. Bowel sounds are present. No masses. No tenderness. EXTREMITIES: No calf tenderness. Trace edema bilateral ankles 2+1 edema NEUROLOGICAL: Patient is awake, alert and oriented x3. Cranial nerves 2 through 12 are grossly intact. ASSESSMENT AND PLAN 1. Severe coronary artery disease status post 2 vessel CABG 02/23. Continue current plan per cardiothoracic team. Continue aspirin 325 mg daily, Lipitor 80 mg daily, Plavix 75 mg daily, continue [place] as needed for pain, DuoNeb treatments 4 times daily and as needed, Lopressor 50 mg twice daily. 2. Acute hypoxic respiratory failure. Patient is off oxygen. 3. Worsening bilateral lung infiltrates and small right pleural effusion. 4. Hypertension. Continue lisinopril 20 mg twice daily, continue Lopressor. 5. Hyperlipidemia. Continue atorvastatin. 6. Carotid artery disease. Continue aspirin, atorvastatin. 7. Hyperglycemia. Continue patient on NovoLog scale every 4 hours. 8. New onset paroxysmal atrial fibrillation. Lopressor 50 mg twice daily. 9. GI prophylaxis. Protonix 40 mg daily 10. DVT prophylaxis. Heparin subcu. DISCHARGE PLAN IP REHAB AT [facility] Impression and plan of care have been directed as dictated by the signing physician. Elif Maharaj nurse practitioner acting as scribe for signing physician. Objective - Vital Signs Vital signs: Vital Signs Temp 97.7 F 03/04/22 04:00 Pulse 72 03/04/22 08:16 Resp 16 03/04/22 04:00 BP 167/74 03/04/22 04:00 Pulse Ox 94 L 03/04/22 04:00 FiO2 21 03/03/22 19:25 Intake & Output 03/03/22 03/04/22 03/04/22 18:59 06:59 18:59 Intake Total 200 222 Output Total 900 200 Balance -700 -200 222 Weight 107.2 kg Intake: IV 200 Cefepime 2 gm In Sodium 100 Chloride 0.9% 100 ml @ 25 mls/hr IVPB Q8HR [facility] Rx# :[id number] Lactated Ringers 1,000 ml 100 @ 20 mls/hr IV .Q24H [facility] Rx#:[id number] Oral 222 Output: Urine 900 200 Other: Voiding Method Bedside Commode Toilet # Voids 1 ABP, PAP, CO, CI - Last Documented Arterial Blood Pressure 281/281 Pulmonary Artery Pressure 43/24 Cardiac Output 4 Cardiac Index 1.9 - Labs CBC & Chem 7: 03/04/22 06:28 03/04/22 06:28 Labs: Abnormal Lab Results - Last 24 Hours (Table) 03/03/22 03/03/22 03/03/22 Range/Units 12:01 16:34 20:15 WBC (3.8-10.6) k/uL RBC (3.80-5.40) m/uL Hgb (11.4-16.0) gm/dL Hct (34.0-46.0) % Plt Count (150-450) k/uL Neutrophils # (1.3-7.7) k/uL Chloride (98-107) mmol/L BUN (7-17) mg/dL Glucose (74-99) mg/dL POC Glucose (mg/dL) 128 H 128 H 186 H (70-110) mg/dL Magnesium (1.6-2.3) mg/dL AST (14-36) U/L ALT (4-34) U/L Alkaline Phosphatase (38-126) U/L Total Protein (6.3-8.2) g/dL 03/04/22 03/04/22 03/04/22 Range/Units 06:07 06:28 06:28 WBC 14.9 H (3.8-10.6) k/uL RBC 3.68 L (3.80-5.40) m/uL Hgb 10.8 L (11.4-16.0) gm/dL Hct 33.6 L (34.0-46.0) % Plt Count 475 H (150-450) k/uL Neutrophils # 12.4 H (1.3-7.7) k/uL Chloride 110 H (98-107) mmol/L BUN 27 H (7-17) mg/dL Glucose 114 H (74-99) mg/dL POC Glucose (mg/dL) 114 H (70-110) mg/dL Magnesium 2.4 H (1.6-2.3) mg/dL AST 51 H (14-36) U/L ALT 66 H (4-34) U/L Alkaline Phosphatase 146 H (38-126) U/L Total Protein 6.2 L (6.3-8.2) g/dL
--- NOTE | 2022-03-04 10:56 | P.DS ---
Providers Date of admission: 02/23/22 12:49 Expected date of discharge: 03/04/22 Attending physician: Reji Gonzalez Consults: 02/20/22 13:23 Consult Physician Stat Consulting Provider: Sanford Lee Consult Reason/Comments: evaluation for cabg/left main Do you want consulting provider notified?: Already Contacted 02/21/22 08:29 Consult Physician Routine Consulting Provider: Jesús Albert Consult Reason/Comments: preop cabg clearence Do you want consulting provider notified?: Already Contacted 02/21/22 18:06 Consult Physician Routine Consulting Provider: Scot Florian Consult Reason/Comments: primary coverage Do you want consulting provider notified?: Yes 02/22/22 09:10 Consult to Anesthesia Routine Consulting Provider: Anesthesia,Services Consult Reason/Comments: Cardiac Surgery Pre-Op 02/23/22 17:33 Consult Physician Routine Consulting Provider: [place] Maya Consult Reason/Comments: Community Engagement Leader Consult: post cardiac surgery Do you want consulting provider notified?: Already Contacted 02/27/22 08:17 Consult Physician Routine Consulting Provider: Jt Stephenson Consult Reason/Comments: IP rehab Do you want consulting provider notified?: Yes [facility] FINAL DIAGNOSIS: 1. 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 Hypertension 3. Hyperlipidemia, cholesterol 182, LDL 122 4. SVT, intraoperative atrial arrhythmias with cardioversion 5. Left internal carotid artery stenosis 6. Obesity 7. Never smoker, preoperative FEV1 72% of predicted 8. History of covid infection in July 2021, remains unvaccinated against Covid 9. Family history of coronary artery disease 10. Nasal swab positive for MSSA, treated with mupirocin 11. Preserved LV function with mild to moderate mitral regurgitation 12. Acute blood loss anemia 13. Acute hypoxic respiratory failure requiring BiPAP 14. Leukocytosis with low-grade fever 15. Paroxysmal atrial fibrillation PRINCIPAL PROCEDURE: 1. Off-pump coronary artery bypass grafting 2 with the left internal mammary artery to the left anterior descending artery, reverse saphenous vein graft to the obtuse marginal artery 2. Ligation of the left atrial appendage with a 40 mm AtriCure clip 3. Endovascular vein harvest of the right greater saphenous vein 4. Placement of intra-aortic balloon pump HISTORY OF PRESENT ILLNESS: This is a 76-year-old female patient follows on an outpatient basis with Dr. Florian for primary care Dr. Guidry for cardiology. She reported symptoms of chest pain with exertion concerning for angina for approximately 3 weeks, pain was relieved with rest and sublingual nitro. She underwent stress testing which was abnormal demonstrating lateral wall ischemia and was recommended to undergo elective heart catheterization which demonstrated distal left main stenosis 80-90% at the bifurcation, ostial circumflex stenosis 99%, ostial LAD stenosis 80-90% with proximal LAD stenosis 60-70%, LVEDP 18 mmHg with no gradient across aortic valve. Consultation was placed to Dr. Gonzalez from cardiothoracic surgery. She was recommended to undergo coronary artery bypass grafting. The usual perioperative course was discussed in detail with the patient, all risks and benefits were explained, all questions were answered, and consent was obtained to proceed with surgery. The patient was kept inpatient due to the nature of her disease process. HOSPITAL COURSE: The patient was brought to the preoperative area 02/23/22, prepared in the usual fashion, and subsequently taken to the operating room where Dr. Gonzalez performed off pump 2 vessel CABG. Upon completion of surgery the patient was transferred to the cardiovascular intensive care unit where she was recovered and monitored hemodynamically. She was extubated, all lines, tubes, and drips were discontinued when appropriate, and she was transferred to 3 S. cardiac stepdown unit for further monitoring and rehabilitation. She had a bit of a kathleen recovery with BiPAP requirement, antibiotics, and treatment of paroxysmal atrial fibrillation. Eventually her oxygen was titrated down, she continued to work with physical and occupational therapy, she was tolerating oral diet, her pain was controlled, and she was ready to be discharged to [facility] inpatient rehab on postoperative day #9. She received written and verbal instruction regarding her medications, activity restrictions, signs and symptoms requiring physician notification, and follow-up appointments. Patient Condition at Discharge: Stable Plan - Discharge Summary Discharge Rx Participant: No New Discharge Prescriptions: New Amiodarone [Cordarone] 400 mg PO BID #29 tab Ipratropium-Albuterol Nebulize [Duoneb 0.5 mg-3 mg/3 ml Soln] 3 ml INHALATION RT-QID each Ipratropium-Albuterol Nebulize [Duoneb 0.5 mg-3 mg/3 ml Soln] 3 ml INHALATION RT-Q2H PRN each PRN Reason: Shortness Of Breath Or Wheezing Atorvastatin [Lipitor] 80 mg PO DAILY tab Metoprolol Tartrate [Lopressor] 50 mg PO BID tab Melatonin 5 mg PO HS PRN tab PRN Reason: Insomnia amLODIPine [Norvasc] 10 mg PO DAILY tab INSULIN ASPART (NovoLOG) [NovoLOG (formulary)] 0 unit SQ ACHS each Sennosides-Docusate Sodium [Senokot-S] 2 each PO HS PRN tab PRN Reason: Constipation Acetaminophen Tab [Tylenol] 650 mg PO Q4HR PRN tab PRN Reason: Fever And/ Or Pain lisinopriL [Zestril] 20 mg PO BID tab Magnesium Hydroxide [Milk of Magnesia Concentrate] 2,400 mg PO BID PRN ml PRN Reason: Constipation Clopidogrel [Plavix] 75 mg PO DAILY tab Pantoprazole [Protonix] 40 mg PO AC-BRKFST tab Continue Aspirin EC [Ecotrin Low Dose] 81 mg PO BID Ascorbic Acid [Vitamin C] 1,000 mg PO DAILY tab Cholecalciferol [Vitamin D3 (25 Mcg = 1000 Iu)] 50 mcg PO DAILY tablet Lactulose 1 - 2 tbsp PO DIRECTED PRN PRN Reason: Constipation Discontinued lisinopriL 30 mg PO HS amLODIPine [Norvasc] 5 mg PO DAILY Metoprolol Succinate (ER) [Toprol XL] 25 mg PO DAILY Zinc Sulfate [Orazinc] 220 mg PO DAILY cap Isosorbide Mononitrate ER [Imdur] 30 mg PO DAILY Discharge Medication List Aspirin EC [Ecotrin Low Dose] 81 mg PO BID 10/26/20 [History] Ascorbic Acid [Vitamin C] 1,000 mg PO DAILY tab 08/03/21 [Rx] Cholecalciferol [Vitamin D3 (25 Mcg = 1000 Iu)] 50 mcg PO DAILY tablet 08/03/21 [Rx] Lactulose 1 - 2 tbsp PO DIRECTED PRN 02/18/22 [History] Acetaminophen Tab [Tylenol] 650 mg PO Q4HR PRN tab 03/04/22 [Rx] Amiodarone [Cordarone] 400 mg PO BID #29 tab 03/04/22 [Rx] Atorvastatin [Lipitor] 80 mg PO DAILY tab 03/04/22 [Rx] Clopidogrel [Plavix] 75 mg PO DAILY tab 03/04/22 [Rx] INSULIN ASPART (NovoLOG) [NovoLOG (formulary)] 0 unit SQ ACHS each 03/04/22 [Rx] Ipratropium-Albuterol Nebulize [Duoneb 0.5 mg-3 mg/3 ml Soln] 3 ml INHALATION RT-Q2H PRN each 03/04/22 [Rx] Ipratropium-Albuterol Nebulize [Duoneb 0.5 mg-3 mg/3 ml Soln] 3 ml INHALATION RT-QID each 03/04/22 [Rx] Magnesium Hydroxide [Milk of Magnesia Concentrate] 2,400 mg PO BID PRN ml 03/04/22 [Rx] Melatonin 5 mg PO HS PRN tab 03/04/22 [Rx] Metoprolol Tartrate [Lopressor] 50 mg PO BID tab 03/04/22 [Rx] Pantoprazole [Protonix] 40 mg PO AC-BRKFST tab 03/04/22 [Rx] Sennosides-Docusate Sodium [Senokot-S] 2 each PO HS PRN tab 03/04/22 [Rx] amLODIPine [Norvasc] 10 mg PO DAILY tab 03/04/22 [Rx] lisinopriL [Zestril] 20 mg PO BID tab 03/04/22 [Rx] Follow up Appointment(s)/Referral(s): [facility],Cardiac [NON-STAFF] - 4 Weeks (You will be called in 4-6 weeks for evaluation for cardiac rehab ) Toi Guidry MD [STAFF PHYSICIAN] - 03/13/22 9:45 am (follow up appointment is on February 27 2:15 PM) Reji Gonzalez MD [STAFF PHYSICIAN] - 03/26/22 1:30 pm Ubaldo Freeman NPC [Nurse Practitioner] - 03/11/22 1:45 pm () Jesús Albert DO [Doctor of Osteopathic Medicine] - 03/25/22 2:00 pm Idania Alfredo NPC [Nurse Practitioner] - 03/13/22 11:30 am Ambulatory/Diagnostic Orders: Complete Blood Count w/diff [LAB.AMB] Time Frame: 3 Days, Location: None Selected Comprehensive Metabolic Panel [LAB.AMB] Time Frame: 3 Days, Location: None Selected Patient Instructions/Handouts: Prevent Infections (GEN), Acute Wound Care (GEN), Moderate Sedation (GEN), Heart Catheterization (DC) Activity/Diet/Wound Care/Special Instructions: CONSULTATIONS AT [facility]: Dr. Guidry for cardiology Dr. Albert for pulmonology Dr. Florian for internal medicine DISCHARGE INSTRUCTIONS: 1. No driving for 4 weeks, or until physician gives their ok. 2. The patient should sleep in their own bed, no medical bed needed. 3. Stairs are not an issue. If the bedroom is upstairs, it is advised that the patient go up at night and down in the morning for the first week. Go slowly, using handrail and take 1 step at a time. 4. ROBEL hose are to be worn for 30 days or until physician discontinues. 5. Heart hugger is to be worn 100% of the time until physician discontinues.(except when showering) 6. No lifting, pushing, or pulling more than 10 pounds for 12 weeks. The physician will advise of any restriction changes. 7. The patient is expected to continue the prescribed walking program. 8. Continue pain control per as needed orders. 9. Continue with incentive spirometry and splinting/heart hugger until otherwise directed by the physician. 10. Must shower daily using liquid antibacterial soap and a separate white washcloth for each individual incision. 11. Routine sternal incision care. No powders, lotions, ointments on incisions. No dressings are necessary on incisions unless they are draining. Dermabond tape is to remain on sternal incision until surgeon follow-up. 12. Please call surgeon/COST REPORT CLERK for temp greater than 101 F or purulent drainage from incisions. 13. You should weigh yourself daily, record and bring log with you to follow up appointments. 14. All prescriptions given by surgeon for 30 days. Refills need to be filled through medical social consultant/primary care physician. 15. A Red armband has been placed on the patient. It should be worn for 30 days post surgery and will be removed by the cardiac surgeons. If an ER visit is necessary, please make sure the number on the Red armband is called. 16. You have been referred to and are expected to begin Cardiac Rehab in approximately 4-6 weeks. ONCE DISCHARGED FROM [facility] TO PROVIDE: RN SKILLED HOME CARE SERVICES FOR POST-OP SURGICAL PATIENTS WITH THE FOLLOWING: Coronary Artery Bypass Surgery (CABG), Mitral Valve Replacement/Repair ( MVR), Aortic Valve Replacement/Repair (AVR) RN TO CONTINUE EDUCATION FROM ``ROAD TO A HEALTH HEART PATIENT EDUCATION MANUAL (GIVEN TO PATIENT IN THE HOSPITAL) MEDICATION RECONCILIATION WITH EDUCATION NEEDED ON FIRST HOME VISIT EMPHASIZE IMPORTANCE OF WEARING BREAST SUPPORT/HEART HUGGER ENCOURAGE USE OF INCENTIVE SPIROMETER 10 X EVERY HOUR WHILE AWAKE ENCOURAGE UTILIZATION OF LOWER EXTREMITY COMPRESSION STOCKINGS/ROBEL HOSE and ELEVATE LEGS ABOVE LEVEL OF HEART WHILE AT REST. ENCOURAGE AMBULATION 3-5x/day INCREASING TOLERATES, WHILE AVOIDING EXT REMES IN TEMPERATURE FREQUENCY: RN TO OPEN THE PATIENT WITHIN 24 HOURS OF DISCHARGE FROM THE HOSPITAL WITH TELEHEALTH INSTALLED AT [facility] [place] RN TO VISIT 2-3 X A WEEK FOR 4 WEEKS ESTABLISHED BY PATIENT NEEDS. LABORATORY: CBC, CMP TO BE DRAWN ON THE THIRD DAY HOME, (RAN STAT) FAX RESULTS TO [phone]. TELEHEALTH PARAMETERS: WEIGHT: NOTIFY MD OF WEIGHT GAIN OF 2 LBS IN 24 HOURS OR 5 LBS IN ONE WEEK HR: NOTIFY MD OF HR <55 BPM OR HR>100 BPM BP: NOTIFY MD IF BP <90/55 OR BP>140/100 O2 SAT: NOTIFY MD IF PO2<93% ON ROOM AIR SEND TELEHEALTH REPORT TO PERENNIAL HOUSE MANAGER AND CARDIOVASCULAR SURGEON THE FIRST WEEK OF CARE AND THEN BI-WEEKLY. PLEASE ADDITIONALLY COMMUNICATE ANY ABNORMALS AND NEW FINDINGS TO THE SURGEONS OFFICE. Discharge Disposition: DC/TRNS INTERMEDIATE CARE FAC
[2022-03-04 11:45] LABS: Glucose,Whole Blood 120 mg/dL (70-110)
[2022-03-04 12:19] VITALS: BP 134/78; TEMP 98.2
[2022-03-04] MEDS ORDERED: FUROSEMIDE 10 MG/ML 4 ML VIAL IV STA (13:24)
--- NOTE | 2022-03-04 13:24 | P.PN ---
Subjective The patient is a 76-year-old female with history of carotid vascular disease who presented with symptoms of progressive chest discomfort and an abnormal MPI. Underwent cardiac catheterization on the and was found to have severe distal left main disease with [id number] disease in the RCA. Her echo showed an ejection fraction of 50% with mild lateral wall hypokinesis and flyk-ux-atpcdbdy mitral regurgitation. She underwent 2 vessel CABG on 02/23/202203/04 Patient seen and examined. Patient denies any chest pain or shortness breath. Continue to be in sinus rhythm. Amiodarone PO restarted. Vital signs are stable. BP has improved. Likely discharge home today. she is currently maintained on amiodarone 400 mg twice a day, amlodipine 10 mg daily, aspirin 325 mg daily, atorvastatin 80 mg daily, Plavix and 20 mg daily, lisinopril 20 mg twice a day, metoprolol tartrate 50 mg twice a day PHYSICAL EXAMINATION: Vitals reviewed LUNGS: Mild decrease in the breath sounds at the bases HEART: Regular rate and rhythm, S1, S2. No S3. systolic murmur at the base ABDOMEN: Soft, nontender, no organomegaly EXTREMETIES: No edema IMPRESSION: Status post CABG, RAMOS to the LAD and SVG to obtuse marginal branch with known severe left main disease. Status post removal of Intra-aortic balloon pump History of hyperlipidemia Hypoxemia with lung congestion, probable lung injury post CABG cannot rule out infection, no significant fluid overload, improved Hypertension remains elevated Postoperative A. fib, currently sinus rhythm PLAN: Continue current medication with aspirin, Plavix, statin, beta ena Amiodarone has bee restarted Encourage incentive spirometry Patient continues to be in sinus rhythm. If patient continues to have episodes of A. fib would consider anticoagulation however at this time continue with aspirin and Plavix. Possible discharge home today Follow up outpatient with Dr. Guidry Nurse practitioner note has been reviewed by physician. Signing provider agrees with the documented findings, assessment, and plan of care. Objective - Vital Signs Vital signs: Vital Signs Temp 98.2 F 03/04/22 12:00 Pulse 68 03/04/22 12:00 Resp 18 03/04/22 12:00 BP 134/78 03/04/22 12:00 Pulse Ox 93 L 03/04/22 12:00 FiO2 21 03/03/22 19:25 Intake & Output 03/03/22 03/04/22 03/04/22 18:59 06:59 18:59 Intake Total 200 222 Output Total 900 200 Balance -700 -200 222 Weight 107.2 kg Intake: IV 200 Cefepime 2 gm In Sodium 100 Chloride 0.9% 100 ml @ 25 mls/hr IVPB Q8HR [facility] Rx# :[id number] Lactated Ringers 1,000 ml 100 @ 20 mls/hr IV .Q24H [facility] Rx#:[id number] Oral 222 Output: Urine 900 200 Other: Voiding Method Bedside Commode Toilet Toilet # Voids 1 ABP, PAP, CO, CI - Last Documented Arterial Blood Pressure 281/281 Pulmonary Artery Pressure 43/24 Cardiac Output 4 Cardiac Index 1.9 - Labs CBC & Chem 7: 03/04/22 06:28 03/04/22 06:28 Labs: Abnormal Lab Results - Last 24 Hours (Table) 03/03/22 03/03/22 03/04/22 Range/Units 16:34 20:15 06:07 WBC (3.8-10.6) k/uL RBC (3.80-5.40) m/uL Hgb (11.4-16.0) gm/dL Hct (34.0-46.0) % Plt Count (150-450) k/uL Neutrophils # (1.3-7.7) k/uL Chloride (98-107) mmol/L BUN (7-17) mg/dL Glucose (74-99) mg/dL POC Glucose (mg/dL) 128 H 186 H 114 H (70-110) mg/dL Magnesium (1.6-2.3) mg/dL AST (14-36) U/L ALT (4-34) U/L Alkaline Phosphatase (38-126) U/L Total Protein (6.3-8.2) g/dL 03/04/22 03/04/22 03/04/22 Range/Units 06:28 06:28 11:42 WBC 14.9 H (3.8-10.6) k/uL RBC 3.68 L (3.80-5.40) m/uL Hgb 10.8 L (11.4-16.0) gm/dL Hct 33.6 L (34.0-46.0) % Plt Count 475 H (150-450) k/uL Neutrophils # 12.4 H (1.3-7.7) k/uL Chloride 110 H (98-107) mmol/L BUN 27 H (7-17) mg/dL Glucose 114 H (74-99) mg/dL POC Glucose (mg/dL) 120 H (70-110) mg/dL Magnesium 2.4 H (1.6-2.3) mg/dL AST 51 H (14-36) U/L ALT 66 H (4-34) U/L Alkaline Phosphatase 146 H (38-126) U/L Total Protein 6.2 L (6.3-8.2) g/dL
--- NOTE | 2022-03-04 13:41 | P.PN ---
Subjective Progress Note Date: 03/04/22 Principal diagnosis: Coronary artery disease 03/02/2022 the patient is postop day #7. Patient is doing well and the patient was taken off the Airvo and the patient is currently on 5 L O2 2 by nasal cannula. She did suffer a post surgical ARDS from which she is gradually recov ering pH remains on prednisone 40 mg by mouth daily. She remains on IV cefepime and vancomycin can be discontinued knowing that the antibiotics was essentially hepatic in nature. The patient has no new complaints otherwise for now. The patient has a white cell count of 12.2 with a hemoglobin of 10.3. Electrodes are all within normal limits. No nausea. No vomiting. Using incentive spirometer, pulling approximately 1000 on the I asked. On terms of the renal function, the patient is stable creatinine of 0.7 with a mean of 42. Surgical with that is dry clean and intact. Cardiac rhythm is sinus and the patient is still having on and off episodes of atrial fibrillation. Reevaluated today on 03/03/2022, patient is sitting at a bedside chair, in no distress, patient is on room air. Overall the patient is doing great. Apparently she suffered postsurgical ARDS and she recovered nicely, patient remains on prednisone she is was also on antibiotics in the form of cefepime and vancomycin which was eventually discontinued. Patient has no symptoms today. Her WBC count is 12.1 hemoglobin is 10.7 electrolytes and renal profile are normal. Chest x-ray is suggestive of interstitial edema/ARDS. And she has small pleural effusions On 03/04/2022 patient seen in follow-up on selective care unit. Today is postoperative day #9, status post coronary artery bypass grafting surgery 2, off pump. She is doing well, she is awake and alert, remains a pulse ox of 93%, breathing comfortably, denies any specific complaints, chest x-ray from today showing persistent low lung volumes, cardiomegaly with small bilateral pleural effusions and bibasilar atelectasis. Patient received a dose of IV Lasix per CT surgery. Otherwise vital signs have been stable. Patient has completed a course of cefepime and vancomycin. She's had no fever or chills, incisions are clean dry and intact. Objective - Vital Signs Vital signs: Vital Signs Temp 98.2 F 03/04/22 12:00 Pulse 68 03/04/22 12:00 Resp 18 07/06/22 12:00 BP 134/78 03/04/22 12:00 Pulse Ox 93 L 03/04/22 12:00 FiO2 21 03/03/22 19:25 Intake & Output 03/03/22 03/04/22 03/04/22 18:59 06:59 18:59 Intake Total 200 222 Output Total 900 200 Balance -700 -200 222 Weight 107.2 kg Intake: IV 200 Cefepime 2 gm In Sodium 100 Chloride 0.9% 100 ml @ 25 mls/hr IVPB Q8HR [facility] Rx# :[id number] Lactated Ringers 1,000 ml 100 @ 20 mls/hr IV .Q24H [facility] Rx#:[id number] Oral 222 Output: Urine 900 200 Other: Voiding Method Bedside Commode Toilet Toilet # Voids 1 ABP, PAP, CO, CI - Last Documented Arterial Blood Pressure 281/281 Pulmonary Artery Pressure 43/24 Cardiac Output 4 Cardiac Index 1.9 - Exam GENERAL EXAM: Alert, very pleasant, 76-year-old white female, on room air, with a pulse ox of 93%, comfortable in no apparent distress. HEAD: Normocephalic/atraumatic. EYES: Normal reaction of pupils, equal size. Conjunctiva pink, sclera white. NOSE: Clear with pink turbinates. THROAT: No erythema or exudates. NECK: No masses, no JVD, no thyroid enlargement, no adenopathy. CHEST: No chest wall deformity. Symmetrical expansion. Midsternal incision and chest tube sites are clean dry and intact LUNGS: Equal air entry with no crackles, wheeze, rhonchi or dullness. CVS: Regular rate and rhythm, normal S1 and S2, no gallops, no murmurs, no rubs ABDOMEN: Soft, nontender. No hepatosplenomegaly, normal bowel sounds, no guarding or rigidity. EXTREMITIES: No clubbing, no edema, no cyanosis, 2+ pulses and upper and lower extremities. MUSCULOSKELETAL: Muscle strength and tone normal. SPINE: No scoliosis or deformity SKIN: No rashes CENTRAL NERVOUS SYSTEM: Alert and oriented -3. No focal deficits, tone is normal in all 4 extremities. PSYCHIATRIC: Alert and oriented -3. Appropriate affect. Intact judgment and insight. - Labs CBC & Chem 7: 03/04/22 06:28 03/04/22 06:28 Labs: Abnormal Lab Results - Last 24 Hours (Table) 03/03/22 03/03/22 03/04/22 Range/Units 16:34 20:15 06:07 WBC (3.8-10.6) k/uL RBC (3.80-5.40) m/uL Hgb (11.4-16.0) gm/dL Hct (34.0-46.0) % Plt Count (150-450) k/uL Neutrophils # (1.3-7.7) k/uL Chloride (98-107) mmol/L BUN (7-17) mg/dL Glucose (74-99) mg/dL POC Glucose (mg/dL) 128 H 186 H 114 H (70-110) mg/dL Magnesium (1.6-2.3) mg/dL AST (14-36) U/L ALT (4-34) U/L Alkaline Phosphatase (38-126) U/L Total Protein (6.3-8.2) g/dL 03/04/22 03/04/22 03/04/22 Range/Units 06:28 06:28 11:42 WBC 14.9 H (3.8-10.6) k/uL RBC 3.68 L (3.80-5.40) m/uL Hgb 10.8 L (11.4-16.0) gm/dL Hct 33.6 L (34.0-46.0) % Plt Count 475 H (150-450) k/uL Neutrophils # 12.4 H (1.3-7.7) k/uL Chloride 110 H (98-107) mmol/L BUN 27 H (7-17) mg/dL Glucose 114 H (74-99) mg/dL POC Glucose (mg/dL) 120 H (70-110) mg/dL Magnesium 2.4 H (1.6-2.3) mg/dL AST 51 H (14-36) U/L ALT 66 H (4-34) U/L Alkaline Phosphatase 146 H (38-126) U/L Total Protein 6.2 L (6.3-8.2) g/dL Assessment and Plan Plan: Assessment: #1. Symptomatic coronary artery disease, status post coronary artery bypass grafting surgery 2, off pump, postoperative day #9. Patient required intra- aortic balloon pump insertion for hemodynamic support at the time of surgery wh ich was subsequently discontinued. #2. Acute hypoxic respiratory failure the possibility of ARDS, and initially patient was requiring high flow oxygen per Airvo which has been gradually weaned down, and clinically patient has improved with treatment which included steroids, diuretics, and empiric antibiotics #3. Postoperative atelectasis and small right-sided pleural effusion #4. Paroxysmal atrial fibrillation expected outcome of surgery currently in sinus mechanism #5. Postoperative hyperglycemia, improved insulin drip has been transitioned to subcutaneous insulin #6. Hypertension #7. Prior history of coronary 19 infection in July 2021 #8. Postoperative anemia, expected outcome of surgery, hemoglobin is stable #9. Leukocytosis, improved Plan: Today's chest x-ray and labs have been reviewed Patient has been given a dose of IV Lasix per CT surgery Continue encouraging deep breathing and coughing Encourage ambulation Patient has completed a course of empiric antibiotics Vital signs are stable, no fever or chills Discharge pending to patient rehab possibly today Outpatient follow-up with Dr. Marina in the office in 7-10 days I have personally seen and examined the patient, performed the documentation and the assessment and plan as written. Number of minutes spent on the visit: [10] Time with Patient: Less than 30
[2022-03-04 19:12] VITALS: PULSE 68; RESP 16
== END 2022-03-04 16:41 | DRG 233 ==
LOC: CATHCVL 09:58 → 3SCARD 15:16 → CATHCVL 02-21 13:51 → 3SCARD 02-21 13:51 → CATHCVL 02-23 12:49 → 2SICU 02-23 13:15 → 3SCARD 03-03 17:19
PROVIDERS: ADMIT Thoracic Surgery (Cardiothoracic Vascular Surgery); ATTEND Thoracic Surgery (Cardiothoracic Vascular Surgery)
PROC: 4A023N7 Measurement of Cardiac Sampling and Pressure, Left Heart, Percutaneous Approach (ICD-10-PCS; 2022-02-20)
PROC: B2111ZZ Fluoroscopy of Multiple Coronary Arteries using Low Osmolar Contrast (ICD-10-PCS; 2022-02-20)
PROC: B2151ZZ Fluoroscopy of Left Heart using Low Osmolar Contrast (ICD-10-PCS; 2022-02-20)
PROC: 02L70CK Occlusion of Left Atrial Appendage with Extraluminal Device, Open Approach (ICD-10-PCS; 2022-02-23)
PROC: 02100Z9 Bypass Coronary Artery, One Artery from Left Internal Mammary, Open Approach (ICD-10-PCS; principal; 2022-02-23 08:15)
PROC: 021009W Bypass Coronary Artery, One Artery from Aorta with Autologous Venous Tissue, Open Approach (ICD-10-PCS; 2022-02-23 08:15)
PROC: 5A02210 Assistance with Cardiac Output using Balloon Pump, Continuous (ICD-10-PCS; 2022-02-23 08:15)
PROC: 5A09357 Assistance with Respiratory Ventilation, Less than 24 Consecutive Hours, Continuous Positive Airway Pressure (ICD-10-PCS; 2022-02-26)
DX: I25.110 Atherosclerotic heart disease of native coronary artery with unstable angina pectoris (principal); J80 Acute respiratory distress syndrome; I50.32 Chronic diastolic (congestive) heart failure; I47.1 Supraventricular tachycardia; D62 Acute posthemorrhagic anemia; E66.9 Obesity, unspecified; Z68.37 Body mass index [BMI] 37.0-37.9, adult; E78.5 Hyperlipidemia, unspecified; K59.00 Constipation, unspecified; Z96.652 Presence of left artificial knee joint; I48.0 Paroxysmal atrial fibrillation; M79.7 Fibromyalgia; I11.0 Hypertensive heart disease with heart failure; I34.0 Nonrheumatic mitral (valve) insufficiency; D72.829 Elevated white blood cell count, unspecified; G47.10 Hypersomnia, unspecified; Z20.822 Contact with and (suspected) exposure to COVID-19; R32 Unspecified urinary incontinence; I65.22 Occlusion and stenosis of left carotid artery; Z28.310 Unvaccinated for COVID-19; Z79.02 Long term (current) use of antithrombotics/antiplatelets; Z79.82 Long term (current) use of aspirin; Z79.899 Other long term (current) drug therapy; Z86.73 Personal history of transient ischemic attack (TIA), and cerebral infarction without residual deficits; Z86.16 Personal history of COVID-19; Z90.710 Acquired absence of both cervix and uterus; Z82.49 Family history of ischemic heart disease and other diseases of the circulatory system
CPT/HCPCS: 33967; 71045; 71046; 76604; 80048; 80053; 80061; 80074; 80202; 81001; 82330; 82805; 83036; 83735; 84145; 84443; 85025; 85027; 85520; 85610; 85730; 86891; 87070; 87635; 93306; 93458; 93880; 93970; 94002; 94150; 94640; 94660; 94760

== ENCOUNTER → 2024-04-19 | Outpatient (CLI) | payer MEDICARE, OTHER ==
--- NOTE | 2024-05-08 18:07 | MM ---
Reason for Exam: Screening (asymptomatic). Last mammogram was performed 1 year(s) and 5 month(s) ago. Patient History: Menarche at age 14. First Full-Term at age 20. Left ovary removed at age 39. Right ovary removed at age 39. Hysterectomy at age 39. Postmenopausal. Patient has history of breast feeding. Estrogen for 3 years from age 39 until age 42. Risk Values: Dina 5 year model risk: 1.3%. NCI Lifetime model risk: 2.4%. Prior Study Comparison: 06/28/2017 Bilateral Screening Mammogram, [facility]. 08/09/2018 Bilateral Screening Mammogram, [facility]. 10/30/2022 Bilateral MG 3D screening mammo w/cad, [facility]. Tissue Density: There are scattered areas of fibroglandular density. Findings: Analyzed By CAD. Bilateral vascular calcifications. Unchanged intramammary lymph node posterior upper-outer quadrant left breast. There is no suspicious group of microcalcifications or new suspicious mass in either breast. Overall Assessment: Benign, BI-RAD 2 Management: Screening Mammogram of both breasts in 1 year. . Patient should continue monthly self-breast exams. A clinical breast exam by your physician is recommended on an annual basis. This exam should not preclude additional follow-up of suspicious palpable abnormalities. Note on Dina scores and lifetime risk: 1. A Dina score greater than 3% is considered moderate risk. If this is the case, consider specialist referral to assess eligibility for a risk reducing agent. 2. If overall lifetime risk for the development of breast cancer is 20% or higher, the patient may qualify for future screening with alternating mammogram and breast MRI. Electronically signed and approved by: Adilene Valdovinos M.D. Radiologist
== END | disposition home or self-care (01) ==
LOC: RADMAMWWP 18:29
PROVIDERS: ATTEND Family Medicine
DX: Z12.31 Encounter for screening mammogram for malignant neoplasm of breast (principal); Z78.0 Asymptomatic menopausal state; Z90.721 Acquired absence of ovaries, unilateral; R92.323 Mammographic fibroglandular density, bilateral breasts
CPT/HCPCS: 77063; 77067

== ENCOUNTER → 2024-07-03 | Outpatient (CLI) | payer MEDICARE, OTHER ==
--- NOTE | 2024-07-03 11:53 | XR ---
EXAMINATION TYPE: XR cervical spine comp DATE OF EXAM: 07/03/2024 11:25 AM COMPARISON: None. CLINICAL INDICATION: Female, 78 years old with history of M54.2 CERVICALGIA, lightheaded, fused verte bra TECHNIQUE: XR cervical spine comp view(s) obtained. FINDINGS: Foramina are patent. Vertebral body alignment is preserved. 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 Anterior vertebral body spurring is present see 6 7. Some mild posterior endplate spurring i s present C6-7. Posterior spinal lamellar line is intact. Prevertebral space is normal. 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 IMPRESSION: 1. 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 2. Small posterior endplate spurring at C6-7. Obvious stenosis is not identified. Follow-up MRI can b e performed as clinically indicated [facility], , 07/03/2024 11:50 AM
== END | disposition home or self-care (01) ==
LOC: RADXRMAIN 11:09
PROVIDERS: ATTEND Nurse Practitioner Family
DX: M43.22 Fusion of spine, cervical region (principal); Z98.1 Arthrodesis status
CPT/HCPCS: 72050